=== PATIENT | female | born 1940 ===

== ENCOUNTER 2016-12-22 08:44 | Day surgery (SDC) | payer MEDICARE, MEDICAID ==
[2016-06-30 09:34] VITALS: PULSE 69
[2016-12-22 09:15] VITALS: BMI 16.5
[2016-12-22 09:23] VITALS: O2SAT 100
[2016-12-22] MEDS ORDERED: Lidocaine 1% Inj (20ml) ONE (11:20)
--- NOTE | 2016-12-22 12:08 | CP.SDSHP ---
Same Day Surgery H & P - History Proposed Procedure: Paracentesis. Pre-Op Diagnosis: ESRD and ascitis - Allergies Allergies: Allergies Penicillins Allergy (Verified 06/30/16 10:15) RASH morphine Adverse Reaction (Verified 06/30/16 12:20) HEADACHE mayonnaise Adverse Reaction (Uncoded 06/30/16 10:15) VOMITING - Physical Exam Vital Signs: Vital Signs 12/22/16 12/22/16 12/22/16 09:22 09:27 11:35 Temperature 97.5 F L 97.9 F Pulse Rate 81 81 88 Respiratory 18 18 Rate Blood Pressure 144/52 L 127/66 O2 Sat by Pulse 100 100 Oximetry Short Stay Discharge - Short Stay Discharge Admitting Diagnosis/Reason for Visit: R18.8/THERAPUTIC PARA Disposition: HOME/ ROUTINE Referrals: Jose Snyder MD [Primary Care Provider] -
--- NOTE | 2016-12-22 12:09 | PCM.SURG1 ---
Surgeon's Initial Post Op Note - Surgeon's Notes Surgeon: Julian Contestant Coordinator: None Type of Anesthesia: Local Pre-Operative Diagnosis: ESRD and ascites Operative Findings: Ascites Post-Operative Diagnosis: ESRD and ascites Operation Performed: Paracentesis Specimen/Specimens Removed: Approx 4700cc of pale yellow colored clear fluid aspirated. Estimated Blood Loss: EBL {In ML}: 1 Date of Surgery/Procedure: 12/22/16 Time of Surgery/Procedure: 11:30
[2016-12-22 12:31] VITALS: RESP 18
[2016-12-22 13:56] VITALS: BP 116/68; PULSE 58; TEMP 97.4
== END 2016-12-22 14:00 | disposition home or self-care (01) ==
LOC: H.OPSURG 08:44
PROVIDERS: ATTEND Internal Medicine
DX: R18.8 Other ascites (principal)
CPT/HCPCS: 49083; C1729

== ENCOUNTER 2017-01-17 08:35 | Day surgery (SDC) | payer MEDICARE, MEDICAID ==
[2016-06-30 09:34] VITALS: PULSE 69
[2017-01-17 09:32] VITALS: BMI 19.9
[2017-01-17] MEDS ORDERED: Lidocaine 1% Inj (20ml) ONE (11:19)
--- NOTE | 2017-01-17 12:15 | CP.SDSHP ---
Same Day Surgery H & P - History Proposed Procedure: PARACENTESIS Pre-Op Diagnosis: ascites - Allergies Allergies: Allergies Penicillins Allergy (Verified 06/30/16 10:15) RASH morphine Adverse Reaction (Verified 06/30/16 12:20) HEADACHE mayonnaise Adverse Reaction (Uncoded 06/30/16 10:15) VOMITING - Physical Exam Vital Signs: Vital Signs 01/17/17 01/17/17 01/17/17 09:16 09:17 11:34 Temperature 98 F 98 F Pulse Rate 75 75 77 Respiratory 18 18 Rate Blood Pressure 127/47 L 124/49 L O2 Sat by Pulse 100 99 Oximetry 01/17/17 12:04 Temperature 97.8 F Pulse Rate 76 Respiratory 20 Rate Blood Pressure 127/61 O2 Sat by Pulse 99 Oximetry Mental Status: Alert & Oriented x3 Neuro: WNL Heart: WNL Lungs: WNL - {Optional Preform as Required} Abdomen: Other (distended, non tender) - Impression Impression: pt with recurrent ascites. Plan US guided paracentesis. Pt. Evaluated Today:Candidate for Anesthesia & Procedure: No - Date & Time Date: 01/17/17 Time: 11:30 Short Stay Discharge - Short Stay Discharge Admitting Diagnosis/Reason for Visit: THERAPEUTIC PARA Referrals: Jose Snyder MD [Primary Care Provider] - Progress Note/Discharge Note with Instructions: S/P Paracentesis. No complications.
--- NOTE | 2017-01-17 12:17 | PCM.SURG1 ---
Surgeon's Initial Post Op Note - Surgeon's Notes Surgeon: Javier Woods MD District Adviser: NONE Type of Anesthesia: Local Pre-Operative Diagnosis: Ascites Operative Findings: US showed a large amount of ascites Post-Operative Diagnosis: Ascites Operation Performed: US guided paracentesis. Specimen/Specimens Removed: 5.5 Liters of clear fluid Estimated Blood Loss: EBL {In ML}: 0 Blood Products Given: N/A Drains Used: No Drains Post-Op Condition: Good Date of Surgery/Procedure: 01/17/17 Time of Surgery/Procedure: 12:05
[2017-01-17 12:24] VITALS: RESP 18; O2SAT 100
[2017-01-17 12:41] VITALS: PULSE 77; TEMP 97.5
[2017-01-17 13:19] VITALS: BP 118/50
--- NOTE | 2017-01-18 12:03 | US ---
Date of Procedure: 01/17/2017 PROCEDURE: Ultrasound-guided paracentesis, CPT 89636 Medications: 5 cc 1% Lidocaine HISTORY: Ascites, abdominal pain, cirrhosis TECHNIQUE: Following informed consent , the patient was placed supine on the stretcher and the site was marked. A limited abdominal ultrasound was performed that showed a large amount of intra-abdominal fluid. Procedural time out was called and the Pt's abdomen was marked and prepped and draped in the usual sterile fashion. Ultrasound-guided large volume paracentesis performed. A total of 5.5 liters of straw colored fluid was removed without complication. IMPRESSION: Ultrasound-guided large volume paracentesis.
== END 2017-01-17 13:30 | disposition home or self-care (01) ==
LOC: H.OPSURG 08:35
PROVIDERS: ATTEND Internal Medicine
DX: R18.8 Other ascites (principal)
CPT/HCPCS: 49083; C1729

== ENCOUNTER 2017-02-09 07:47 | Day surgery (SDC) | payer MEDICARE, MEDICAID ==
[2016-06-30 09:34] VITALS: PULSE 69
[2017-02-09 08:15] VITALS: RESP 20; O2SAT 100
[2017-02-09 08:47] LABS: HEMATOCRIT 34.3 % (34.0-47.0); MEAN CELL VOLUME 98.2 fl (81.0-99.0); MEAN CORPUSCULAR HEMOGLOBIN 30.6 pg (27.0-31.0); MEAN CORPUSCULAR HGB CONC 31.2 g/dL (33.0-37.0); RED CELL DISTRIBUTION WIDTH 16.9 % (11.5-14.5); WHITE BLOOD COUNT 3.1 K/uL (4.8-10.8)
[2017-02-09 08:59] LABS: PARTIAL THROMBOPLASTIN TIME 30.6 SECONDS (23.3-32.5)
[2017-02-09] MEDS ORDERED: Lidocaine 1% Inj (20ml) ONE (10:20)
--- NOTE | 2017-02-09 10:33 | CP.SDSHP ---
Same Day Surgery H & P - History Proposed Procedure: US guided paracentesis. Pre-Op Diagnosis: Refractory ascites - Allergies Allergies: Allergies Penicillins Allergy (Verified 06/30/16 10:15) RASH morphine Adverse Reaction (Verified 06/30/16 12:20) HEADACHE mayonnaise Adverse Reaction (Uncoded 06/30/16 10:15) VOMITING - Physical Exam Vital Signs: Vital Signs 02/09/17 02/09/17 08:14 08:15 Temperature 97.8 F Pulse Rate 71 71 Respiratory 20 Rate Blood Pressure 140/52 L O2 Sat by Pulse 100 Oximetry Mental Status: Alert & Oriented x3 Neuro: WNL Heart: WNL Lungs: WNL - {Optional Preform as Required} Abdomen: Other (Distended, non tender) - Impression Impression: Pt with a large amount of ascites. Plan US guided paracentesis. Pt. Evaluated Today:Candidate for Anesthesia & Procedure: No - Date & Time Date: 02/09/17 Time: 10:30 Short Stay Discharge - Short Stay Discharge Admitting Diagnosis/Reason for Visit: R18.8 Referrals: Jose Snyder MD [Primary Care Provider] - Progress Note/Discharge Note with Instructions: S/P paracentesis. There were no compications.
--- NOTE | 2017-02-09 10:34 | PCM.SURG1 ---
Surgeon's Initial Post Op Note - Surgeon's Notes Surgeon: Javier Woods MD Burn Out Tender Lace: NONE Type of Anesthesia: Local Pre-Operative Diagnosis: Ascites Operative Findings: US showed a large amount of ascites Post-Operative Diagnosis: Ascites Operation Performed: US guided paracentesis. Specimen/Specimens Removed: 5.7 l of straw colored fluid. Estimated Blood Loss: EBL {In ML}: 0 Blood Products Given: N/A Drains Used: No Drains Post-Op Condition: Good Date of Surgery/Procedure: 02/09/17 Time of Surgery/Procedure: 10:55
[2017-02-09 11:58] VITALS: BP 121/50; PULSE 76; TEMP 98.2
--- NOTE | 2017-02-09 15:28 | US ---
Date of Procedure: 02/09/2017 PROCEDURE: Ultrasound-guided paracentesis, CPT 96452 Medications: 8cc 1% Lidocaine HISTORY: Ascites, abdominal pain TECHNIQUE: Following informed consent , the patient was placed supine on the stretcher and the site was marked. A limited abdominal ultrasound was performed that showed a large amount of intra-abdominal fluid. Procedural time out was called and the Pt's abdomen was marked and prepped and draped in the usual sterile fashion. Ultrasound-guided large volume paracentesis performed. A total of 5.7 liters of straw colored fluid was removed without complication. IMPRESSION: Ultrasound-guided large volume paracentesis.
== END 2017-02-09 12:10 | disposition home or self-care (01) ==
LOC: H.OPSURG 07:47
PROVIDERS: ATTEND Internal Medicine
DX: R18.8 Other ascites (principal)

== ENCOUNTER 2017-03-07 10:36 | Day surgery (SDC) | payer MEDICARE, MEDICAID ==
[2016-06-30 09:34] VITALS: PULSE 69
[2017-03-07 10:59] VITALS: BMI 19.2
[2017-03-07] MEDS ORDERED: Lidocaine 1% Inj (20ml) ONE (11:23)
--- NOTE | 2017-03-07 12:17 | CP.SDSHP ---
Same Day Surgery H & P - History Proposed Procedure: US guided paracentesis. Pre-Op Diagnosis: Ascites - Allergies Allergies: Allergies Penicillins Allergy (Verified 06/30/16 10:15) RASH morphine Adverse Reaction (Verified 06/30/16 12:20) HEADACHE mayonnaise Adverse Reaction (Uncoded 06/30/16 10:15) VOMITING - Physical Exam Vital Signs: Vital Signs 03/07/17 03/07/17 03/07/17 11:01 11:38 12:13 Temperature 97.3 F L 97.2 F L 97.8 F Pulse Rate 87 74 79 Respiratory 20 20 20 Rate Blood Pressure 125/75 124/81 114/61 O2 Sat by Pulse 100 98 Oximetry Mental Status: Alert & Oriented x3 Neuro: WNL Heart: WNL - {Optional Preform as Required} Abdomen: Other (Distended. Non tender) - Impression Impression: Pt with refractory ascites. Plan US guided paracentesis. Pt. Evaluated Today:Candidate for Anesthesia & Procedure: No - Date & Time Date: 03/07/17 Time: 12:00 Short Stay Discharge - Short Stay Discharge Admitting Diagnosis/Reason for Visit: R18.8 Referrals: Jose Snyder MD [Primary Care Provider] -
--- NOTE | 2017-03-07 12:18 | PCM.SURG1 ---
Surgeon's Initial Post Op Note - Surgeon's Notes Surgeon: Javier Woods MD Gem Technician: NONE Type of Anesthesia: Local Pre-Operative Diagnosis: Ascites Operative Findings: US showed moderate ascites Post-Operative Diagnosis: Ascites Operation Performed: US guided paracentesis. Specimen/Specimens Removed: 4.6 liters of straw colored fluid Estimated Blood Loss: EBL {In ML}: 0 Blood Products Given: N/A Drains Used: No Drains Post-Op Condition: Fair Date of Surgery/Procedure: 03/07/17 Time of Surgery/Procedure: 12:10
[2017-03-07 12:44] VITALS: RESP 18; TEMP 97.7; O2SAT 100
[2017-03-07 13:25] VITALS: BP 110/44; PULSE 71
--- NOTE | 2017-03-08 15:10 | US ---
Date of Procedure: 03/07/2017 PROCEDURE: Ultrasound-guided paracentesis, CPT 81918 Medications:8CC 1% Lidocaine HISTORY: Ascites, abdominal pain TECHNIQUE: Following informed consent , the patient was placed supine on the stretcher and the site was marked. A limited abdominal ultrasound was performed that showed a large amount of intra-abdominal fluid. Procedural time out was called and the Pt's abdomen was marked and prepped and draped in the usual sterile fashion. Ultrasound-guided large volume paracentesis performed. A total of 4.6 liters of straw colored fluid was removed without complication. IMPRESSION: Ultrasound-guided large volume paracentesis.
== END 2017-03-07 13:40 | disposition home or self-care (01) ==
LOC: H.OPSURG 10:36
PROVIDERS: ATTEND Internal Medicine
DX: R18.8 Other ascites (principal); Z88.0 Allergy status to penicillin
CPT/HCPCS: 49083; C1729

== ENCOUNTER 2017-04-04 10:46 | Day surgery (SDC) | payer MEDICARE, MEDICAID ==
[2016-06-30 09:34] VITALS: PULSE 69
[2017-04-04 11:02] VITALS: BMI 20.4
[2017-04-04 11:46] VITALS: RESP 18
[2017-04-04 11:57] LABS: BASO % 0.9 % (0.0-2.0); EOS # 0.1 K/uL (0.0-0.7); EOS % 1.6 % (0.0-4.0); HEMATOCRIT 38.7 % (34.0-47.0); LYMPH # 0.4 K/uL (1.0-4.3); LYMPH % 10.5 % (20.0-40.0); MEAN CELL VOLUME 98.7 fl (81.0-99.0); MEAN CORPUSCULAR HEMOGLOBIN 30.9 pg (27.0-31.0); MEAN CORPUSCULAR HGB CONC 31.3 g/dL (33.0-37.0); MONO # 0.5 K/uL (0.0-0.8); MONO % 13.2 % (0.0-10.0); NEUT # 2.6 K/uL (1.8-7.0); NEUT % 73.8 % (50.0-75.0); NRBC % 0.2 % (0.0-0.0); RED CELL DISTRIBUTION WIDTH 17.4 % (11.5-14.5); WHITE BLOOD COUNT 3.5 K/uL (4.8-10.8)
[2017-04-04 12:13] LABS: PARTIAL THROMBOPLASTIN TIME 33.9 Seconds (25.6-37.1)
--- NOTE | 2017-04-04 13:33 | CP.SDSHP ---
Same Day Surgery H & P - History Proposed Procedure: US guided paracentesis. Pre-Op Diagnosis: Ascites - Allergies Allergies: Allergies Penicillins Allergy (Verified 06/30/16 10:15) RASH morphine Adverse Reaction (Verified 06/30/16 12:20) HEADACHE mayonnaise Adverse Reaction (Uncoded 06/30/16 10:15) VOMITING - Physical Exam Vital Signs: Vital Signs 04/04/17 04/04/17 04/04/17 11:45 11:53 13:13 Temperature 97.6 F 98.6 F Pulse Rate 82 76 Pulse Rate [ 82 Radial] Respiratory 18 18 18 Rate Blood Pressure 130/55 L 125/69 O2 Sat by Pulse 100 100 Oximetry Mental Status: Alert & Oriented x3 Neuro: WNL Heart: WNL Lungs: WNL () - Impression Impression: Pt with refractory ascites referred for paracentesis. Pt. Evaluated Today:Candidate for Anesthesia & Procedure: No - Date & Time Date: 04/04/17 Time: 13:25 Short Stay Discharge - Short Stay Discharge Admitting Diagnosis/Reason for Visit: R18.8 Disposition: HOME/ ROUTINE Referrals: Jose Snyder MD [Primary Care Provider] -
--- NOTE | 2017-04-04 13:35 | PCM.SURG1 ---
Surgeon's Initial Post Op Note - Surgeon's Notes Surgeon: Roseanne Couch Cosmetics Machine Operator: None Type of Anesthesia: Local Pre-Operative Diagnosis: Ascites Operative Findings: US showed large amount of ascites Post-Operative Diagnosis: Ascites Operation Performed: US guided paracentesis. Specimen/Specimens Removed: 4600 of clear fluid Estimated Blood Loss: EBL {In ML}: 0 Blood Products Given: N/A Drains Used: No Drains Post-Op Condition: Good Date of Surgery/Procedure: 04/04/17 Time of Surgery/Procedure: 13:30
[2017-04-04 14:47] VITALS: TEMP 97.7
[2017-04-04 14:49] VITALS: BP 129/47; PULSE 78; O2SAT 99
--- NOTE | 2017-04-05 11:45 | US ---
Date of Procedure: 04/04/2017 PROCEDURE: Ultrasound-guided paracentesis, CPT 09687 Medications: 8cc 1% Lidocaine HISTORY: Ascites, abdominal pain, cirrhosis TECHNIQUE: Following informed consent , the patient was placed supine on the stretcher and the site was marked. A limited abdominal ultrasound was performed that showed a large amount of intra-abdominal fluid. Procedural time out was called and the Pt's abdomen was marked and prepped and draped in the usual sterile fashion. Ultrasound-guided large volume paracentesis performed. A total of 5 liters of straw colored fluid was removed without complication. IMPRESSION: Ultrasound-guided large volume paracentesis.
== END 2017-04-04 16:00 | disposition home or self-care (01) ==
LOC: H.OPSURG 10:46
PROVIDERS: ATTEND Internal Medicine
DX: R18.8 Other ascites (principal)
CPT/HCPCS: 36415; 49083; 85025; 85610; 85730; C1729

== ENCOUNTER 2017-04-27 11:06 | Day surgery (SDC) | payer MEDICARE, MEDICAID ==
[2016-06-30 09:34] VITALS: PULSE 69
[2017-04-27 11:32] VITALS: BMI 20.1
[2017-04-27 11:37] VITALS: O2SAT 97
[2017-04-27] MEDS ORDERED: Lidocaine 1% Inj (20ml) ONE (14:12)
--- NOTE | 2017-04-27 14:50 | PCM.SURG1 ---
Surgeon's Initial Post Op Note - Surgeon's Notes Surgeon: Javier Woods MD Cage Unloader: None Type of Anesthesia: Local Pre-Operative Diagnosis: Ascites, cirrhosis Operative Findings: US showed a large amount of ascites Post-Operative Diagnosis: Ascites, cirrhosis Operation Performed: US guided paracentesis. Specimen/Specimens Removed: 5700 cc of clear fluid Estimated Blood Loss: EBL {In ML}: 0 Blood Products Given: N/A Drains Used: No Drains Post-Op Condition: Good Date of Surgery/Procedure: 04/27/17 Time of Surgery/Procedure: 14:40
--- NOTE | 2017-04-27 14:52 | CP.SDSHP ---
Same Day Surgery H & P - History Proposed Procedure: Paracentesis Pre-Op Diagnosis: Ascites - Allergies Allergies: Allergies Penicillins Allergy (Verified 04/27/17 11:37) RASH morphine Adverse Reaction (Verified 04/27/17 11:37) HEADACHE mayonnaise Adverse Reaction (Uncoded 04/27/17 11:37) VOMITING - Physical Exam Vital Signs: Vital Signs 04/27/17 04/27/17 11:36 14:15 Temperature 98 F 98 F Pulse Rate 73 81 Respiratory 20 18 Rate Blood Pressure 124/46 L 144/69 O2 Sat by Pulse 97 Oximetry - Impression Impression: Pt with ascites referred for paracentesis. Pt. Evaluated Today:Candidate for Anesthesia & Procedure: No - Date & Time Date: 04/27/17 Time: 14:00 Short Stay Discharge - Short Stay Discharge Admitting Diagnosis/Reason for Visit: ASCITES Referrals: Jose Snyder MD [Primary Care Provider] - Progress Note/Discharge Note with Instructions: S/P paracentesis.
[2017-04-27 15:15] VITALS: BP 135/49; RESP 20; TEMP 97.8
[2017-04-27 15:40] VITALS: PULSE 74
--- NOTE | 2017-04-28 11:39 | US ---
Date of Procedure: 04/27/2017 PROCEDURE: Ultrasound-guided paracentesis, CPT 69721 Medications: 7 cc 1% Lidocaine HISTORY: Ascites, abdominal pain, cirrhosis TECHNIQUE: Following informed consent , the patient was placed supine on the stretcher and the site was marked. A limited abdominal ultrasound was performed that showed a large amount of intra-abdominal fluid. Procedural time out was called and the Pt's abdomen was marked and prepped and draped in the usual sterile fashion. Ultrasound-guided large volume paracentesis performed. A total of 5.7iters of straw colored fluid was removed without complication. IMPRESSION: Ultrasound-guided large volume paracentesis.
== END 2017-04-27 12:00 | disposition home or self-care (01) ==
LOC: H.OPSURG 11:06
PROVIDERS: ATTEND Internal Medicine
DX: R18.8 Other ascites (principal); K74.60 Unspecified cirrhosis of liver; Z88.0 Allergy status to penicillin
CPT/HCPCS: 49083; C1729

== ENCOUNTER 2017-05-16 11:43 | Day surgery (SDC) | payer MEDICARE, MEDICAID ==
[2016-06-30 09:34] VITALS: PULSE 69
[2017-05-16 12:15] VITALS: BMI 19.2
[2017-05-16] MEDS ORDERED: Lidocaine 1% Inj (20ml) ONE (12:28)
[2017-05-16 12:50] VITALS: RESP 18
--- NOTE | 2017-05-16 13:11 | CP.SDSHP ---
Same Day Surgery H & P - History Proposed Procedure: US guided paracentesis. Pre-Op Diagnosis: Ascites - Allergies Allergies: Allergies Penicillins Allergy (Verified 04/27/17 11:37) RASH morphine Adverse Reaction (Verified 04/27/17 11:37) HEADACHE mayonnaise Adverse Reaction (Uncoded 04/27/17 11:37) VOMITING - Physical Exam Vital Signs: Vital Signs 05/16/17 05/16/17 05/16/17 12:02 12:18 12:49 Temperature 97.7 F 98.3 F Pulse Rate 70 70 Pulse Rate [ 70 Radial] Respiratory 20 18 Rate Blood Pressure 126/46 L 120/59 L O2 Sat by Pulse 100 97 Oximetry Mental Status: Alert & Oriented x3 Neuro: WNL Heart: WNL Lungs: WNL - {Optional Preform as Required} Abdomen: Other (distended, non tender) - Impression Impression: Pt with refractory ascites referred for paracentesis. Plan US guided paracentesis. Pt. Evaluated Today:Candidate for Anesthesia & Procedure: No Short Stay Discharge - Short Stay Discharge Admitting Diagnosis/Reason for Visit: THERAPEUTIC PARACENTESIS Referrals: Jose Snyder MD [Primary Care Provider] -
[2017-05-16 14:01] VITALS: PULSE 70; O2SAT 100
--- NOTE | 2017-05-16 14:03 | PCM.SURG1 ---
Surgeon's Initial Post Op Note - Surgeon's Notes Surgeon: Javier Woods MD Monument Mason: None Type of Anesthesia: Local Pre-Operative Diagnosis: Ascites Operative Findings: US showed a large amount of ascites Post-Operative Diagnosis: Ascites Operation Performed: US guided paracentesis. Specimen/Specimens Removed: 5 liters of straw colored fluid Estimated Blood Loss: EBL {In ML}: 0 Blood Products Given: N/A Drains Used: No Drains Post-Op Condition: Good Date of Surgery/Procedure: 05/16/17 Time of Surgery/Procedure: 13:45
[2017-05-16 14:26] VITALS: BP 122/49; TEMP 97.8
== END 2017-05-16 15:10 | disposition home or self-care (01) ==
LOC: H.OPSURG 11:43
PROVIDERS: ATTEND Internal Medicine
DX: R18.8 Other ascites (principal)

== ENCOUNTER 2017-06-01 09:52 | Day surgery (SDC) | payer MEDICARE, MEDICAID ==
[2016-06-30 09:34] VITALS: PULSE 69
[2017-06-01 10:24] VITALS: BMI 20.1
[2017-06-01] MEDS ORDERED: Lidocaine 1% Inj (20ml) ONE (11:15)
--- NOTE | 2017-06-01 11:38 | CP.SDSHP ---
Same Day Surgery H & P - History Proposed Procedure: Paracentesis Pre-Op Diagnosis: ESRD/Ascites - Allergies Allergies: Allergies Penicillins Allergy (Verified 04/27/17 11:37) RASH morphine Adverse Reaction (Verified 04/27/17 11:37) HEADACHE mayonnaise Adverse Reaction (Uncoded 04/27/17 11:37) VOMITING - Physical Exam Vital Signs: Vital Signs 06/01/17 06/01/17 06/01/17 10:18 10:20 11:28 Temperature 97.8 F 98 F Pulse Rate 70 72 Respiratory 20 20 18 Rate Blood Pressure 124/45 L 136/58 L O2 Sat by Pulse 100 98 Oximetry Mental Status: Alert & Oriented x3 Neuro: WNL Heart: WNL Lungs: WNL GI: WNL - Impression Pt. Evaluated Today:Candidate for Anesthesia & Procedure: Yes Short Stay Discharge - Short Stay Discharge Admitting Diagnosis/Reason for Visit: ASCITES Disposition: HOME/ ROUTINE Referrals: Jose Snyder MD [Primary Care Provider] -
--- NOTE | 2017-06-01 12:01 | PCM.SURG1 ---
Surgeon's Initial Post Op Note - Surgeon's Notes Surgeon: Julian Recreational Leader: None Type of Anesthesia: Local Pre-Operative Diagnosis: ESRD/Ascites. Operative Findings: Ascites. Post-Operative Diagnosis: ESRD/Ascites. Operation Performed: Paracentesis. Specimen/Specimens Removed: Approx 5000cc of clear plae yellow fluid aspirated. Estimated Blood Loss: EBL {In ML}: 1 Date of Surgery/Procedure: 06/01/17 Time of Surgery/Procedure: 11:30
[2017-06-01 13:22] VITALS: BP 121/38; PULSE 69; RESP 20; TEMP 98.4; O2SAT 100
--- NOTE | 2017-06-01 14:33 | US ---
Ultrasound guided paracentesis. Clinical History: Ascites with abdominal pain and distension. Technique: The relative risks and indications for the procedure were explained to the patient and informed written consent obtained. Sonography of the abdomen was performed in a supine position. This revealed a moderate amount of non-loculated ascites, greatest in the right lower quadrant. A puncture site was selected and the area was prepped and draped in the usual sterile fashion. 1% lidocaine was used to anesthetize the skin and soft tissues. A 5 Slovenian paracentesis catheter was trocared into the right lower quadrant under real time ultrasound guidance. A permanent image was stored. Approximately 5000cc of kayleigh fluid aspirated. Impression: Ultrasound-guided paracentesis in the right lower quadrant. Approximately 5000 cc of kayleigh colored fluid was aspirated.
== END 2017-06-01 15:00 | disposition home or self-care (01) ==
LOC: H.OPSURG 09:52
PROVIDERS: ATTEND Internal Medicine
DX: R18.8 Other ascites (principal); N18.6 End stage renal disease; Z88.0 Allergy status to penicillin
CPT/HCPCS: 49083; C1729

== ENCOUNTER 2017-07-04 11:38 | Day surgery (SDC) | payer MEDICARE, MEDICAID ==
[2016-06-30 09:34] VITALS: PULSE 69
[2017-07-04 12:02] VITALS: O2SAT 100
[2017-07-04] MEDS ORDERED: Lidocaine 1% Inj (20ml) ONE (12:45)
[2017-07-04 13:53] VITALS: RESP 20
[2017-07-04 14:17] VITALS: BP 120/49; PULSE 70; TEMP 97.8
--- NOTE | 2017-07-04 14:25 | CP.SDSHP ---
Same Day Surgery H & P - History Proposed Procedure: US guided paracentesis. Pre-Op Diagnosis: Ascites - Allergies Allergies: Allergies Penicillins Allergy (Verified 04/27/17 11:37) RASH morphine Adverse Reaction (Verified 04/27/17 11:37) HEADACHE mayonnaise Adverse Reaction (Uncoded 04/27/17 11:37) VOMITING - Physical Exam Vital Signs: Vital Signs 07/04/17 07/04/17 07/04/17 12:00 12:03 12:15 Temperature 97.8 F 96.8 F L Pulse Rate 74 74 73 Respiratory 20 16 Rate Blood Pressure 108/56 L 122/52 L O2 Sat by Pulse 100 100 Oximetry 07/04/17 07/04/17 07/04/17 13:30 13:40 14:16 Temperature 97.4 F L 97.8 F Pulse Rate 71 100 H 70 Respiratory 16 20 20 Rate Blood Pressure 121/65 126/75 120/49 L O2 Sat by Pulse 100 100 100 Oximetry Mental Status: Alert & Oriented x3 Neuro: WNL Heart: WNL Lungs: WNL - Impression Impression: PT with refractory ascites. Plan US guided paracentesis. Pt. Evaluated Today:Candidate for Anesthesia & Procedure: No - Date & Time Date: 07/04/17 Time: 14:20 Short Stay Discharge - Short Stay Discharge Admitting Diagnosis/Reason for Visit: ASCITES Referrals: Jose Snyder MD [Primary Care Provider] -
--- NOTE | 2017-07-04 14:26 | PCM.SURG1 ---
Surgeon's Initial Post Op Note - Surgeon's Notes Surgeon: Javier Woods MD Oil Well Drilling Manager: NONE Type of Anesthesia: Local Pre-Operative Diagnosis: Ascites Operative Findings: US showed a large amount of ascites Post-Operative Diagnosis: Ascites Operation Performed: US guided paracentesis Specimen/Specimens Removed: 4.6 liters Estimated Blood Loss: EBL {In ML}: 0 Blood Products Given: N/A Drains Used: No Drains Post-Op Condition: Fair Date of Surgery/Procedure: 07/04/17 Time of Surgery/Procedure: 14:20
--- NOTE | 2017-07-04 16:36 | US ---
Date of Procedure: PROCEDURE: Ultrasound-guided paracentesis, CPT 94835 Medications: 7 cc 1% Lidocaine HISTORY: Ascites, abdominal pain, cirrhosis TECHNIQUE: Following informed consent , the patient was placed supine on the stretcher and the site was marked. A limited abdominal ultrasound was performed that showed a large amount of intra-abdominal fluid. Procedural time out was called and the Pt's abdomen was marked and prepped and draped in the usual sterile fashion. Ultrasound-guided large volume paracentesis performed. A total of 4.6 liters of straw colored fluid was removed without complication. IMPRESSION: Ultrasound-guided large volume paracentesis.
== END 2017-07-04 15:35 | disposition home or self-care (01) ==
LOC: H.OPSURG 11:38
PROVIDERS: ATTEND Internal Medicine
DX: R18.8 Other ascites (principal)
CPT/HCPCS: 49083; C1729

== ENCOUNTER 2017-07-25 13:02 | Day surgery (SDC) | payer MEDICARE, MEDICAID ==
[2016-06-30 09:34] VITALS: PULSE 69
[2017-07-25 13:32] VITALS: BMI 18.3
[2017-07-25] MEDS ORDERED: Lidocaine 1% Inj (20ml) ONE ×2 (14:43→15:26)
--- NOTE | 2017-07-25 15:48 | CP.SDSHP ---
Same Day Surgery H & P - History Proposed Procedure: US guided paracentesis. Pre-Op Diagnosis: Ascites - Allergies Allergies: Allergies Penicillins Allergy (Verified 04/27/17 11:37) RASH morphine Adverse Reaction (Verified 04/27/17 11:37) HEADACHE mayonnaise Adverse Reaction (Uncoded 04/27/17 11:37) VOMITING - Physical Exam Vital Signs: Vital Signs 07/25/17 13:35 Temperature 97.6 F Pulse Rate 72 Pulse Rate [ 72 Radial] Respiratory 20 Rate Blood Pressure 122/45 L O2 Sat by Pulse 100 Oximetry Mental Status: Alert & Oriented x3 Neuro: WNL Heart: WNL - Impression Impression: Pt with refractory ascites referred for paracentesis. Plan US guided paracentesis. Pt. Evaluated Today:Candidate for Anesthesia & Procedure: No - Date & Time Date: 07/25/17 Time: 15:40 Short Stay Discharge - Short Stay Discharge Admitting Diagnosis/Reason for Visit: ASCITES Referrals: Jose Snyder MD [Primary Care Provider] -
[2017-07-25 15:53] VITALS: RESP 18; O2SAT 97
--- NOTE | 2017-07-25 15:54 | PCM.SURG1 ---
Surgeon's Initial Post Op Note - Surgeon's Notes Surgeon: Javier Woods MD Aircraft Lay Out Worker: NONE Type of Anesthesia: Local Pre-Operative Diagnosis: Ascites Operative Findings: US showed a moderate amount of ascites Post-Operative Diagnosis: Ascites Operation Performed: US guided paracentesis. Specimen/Specimens Removed: 5 liters of straw colored fluid Estimated Blood Loss: EBL {In ML}: 0 Blood Products Given: N/A Drains Used: No Drains Post-Op Condition: Good Date of Surgery/Procedure: 07/25/17 Time of Surgery/Procedure: 16:30
[2017-07-25 16:22] VITALS: BP 131/57; PULSE 68; TEMP 97.2
--- NOTE | 2017-07-26 13:44 | US ---
Date of Procedure: 07/25/2017 PROCEDURE: Ultrasound-guided paracentesis, CPT 23206 Medications: 7 cc 1% Lidocaine HISTORY: Ascites, abdominal pain TECHNIQUE: Following informed consent , the patient was placed supine on the stretcher and the site was marked. A limited abdominal ultrasound was performed that showed a large amount of intra-abdominal fluid. Procedural time out was called and the Pt's abdomen was marked and prepped and draped in the usual sterile fashion. Ultrasound-guided large volume paracentesis performed. A total of 5 liters of straw colored fluid was removed without complication. IMPRESSION: Ultrasound-guided large volume paracentesis.
== END 2017-07-25 17:50 | disposition home or self-care (01) ==
LOC: H.OPSURG 13:02
PROVIDERS: ATTEND Internal Medicine
DX: R18.8 Other ascites (principal); Z88.5 Allergy status to narcotic agent; Z88.0 Allergy status to penicillin; Z91.018 Allergy to other foods
CPT/HCPCS: 49083; C1729

== ENCOUNTER → 2017-09-07 | Day surgery (SDC) | payer MEDICARE, MEDICAID ==
[2016-06-30 09:34] VITALS: PULSE 69
[~2017-09-07] MED LIST: Lidocaine 1% Inj (20ml) ONE
[2017-09-07 11:42] VITALS: BMI 19.5
--- NOTE | 2017-09-07 13:35 | CP.SDSHP ---
Same Day Surgery H & P - History Proposed Procedure: US guided paracentesis Pre-Op Diagnosis: Ascites - Allergies Allergies: Allergies Penicillins Allergy (Verified 09/07/17 11:42) RASH morphine Adverse Reaction (Verified 09/07/17 11:42) HEADACHE mayonnaise Adverse Reaction (Uncoded 09/07/17 11:42) VOMITING - Physical Exam Vital Signs: Vital Signs 09/07/17 09/07/17 11:30 12:45 Temperature 98.4 F 97.4 F L Pulse Rate 63 76 Respiratory 18 18 Rate Blood Pressure 132/82 132/68 O2 Sat by Pulse 100 100 Oximetry Mental Status: Alert & Oriented x3 Neuro: WNL Heart: WNL Lungs: WNL - Impression Impression: Pt with refractory ascites referred for paracentesis. Plan US guided paracentesis. Pt. Evaluated Today:Candidate for Anesthesia & Procedure: No - Date & Time Date: 09/07/17 Time: 13:00 Short Stay Discharge - Short Stay Discharge Admitting Diagnosis/Reason for Visit: ASCITES Referrals: Jose Snyder MD [Primary Care Provider] -
--- NOTE | 2017-09-07 13:41 | PCM.SURG1 ---
Surgeon's Initial Post Op Note - Surgeon's Notes Surgeon: Javier Woods MD Machine Set Up Operator Paper Goods: NONE Type of Anesthesia: Local Pre-Operative Diagnosis: Ascites Operative Findings: US showed a large amount of ascites Post-Operative Diagnosis: Ascites Operation Performed: US guided paracentesis. Specimen/Specimens Removed: 5 liters of straw colored fluid Estimated Blood Loss: EBL {In ML}: 0 Blood Products Given: N/A Drains Used: No Drains Post-Op Condition: Fair Date of Surgery/Procedure: 09/07/17 Time of Surgery/Procedure: 13:30
[2017-09-07 13:58] VITALS: RESP 20; TEMP 97.5
[2017-09-07 14:23] VITALS: BP 137/52; PULSE 100; O2SAT 98
== END | disposition home or self-care (01) ==
LOC: H.OPSURG 11:14
PROVIDERS: ATTEND Internal Medicine
DX: R18.8 Other ascites (principal)
CPT/HCPCS: 49083; C1729

== ENCOUNTER 2017-09-11 11:50 | Inpatient (IN) | payer MEDICARE, MEDICAID ==
[2017-09-11 11:50] VITALS: BMI 19.5
--- NOTE | 2017-09-11 12:41 | ED PDOC ---
HPI: Abdomen Time Seen by Provider: 09/11/17 12:15 Chief Complaint (Nursing): Abdominal Pain Chief Complaint (Provider): Abdominal pain Additional Complaint(s): 75 year old female, whose PMHx includes chronic kidney disease, chronic cholecystitis, liver cysts, HTN, hemodialysis, chronic ascites, who presents to the ED c/o abdominal pain and elevated heart rate that developed 1 hour into her dialysis session. Pt last has dialysis on 09/06. Pt underwent therapeutic paracentesis on 09/07 and she reports she has been leaking from the site ever since. Pt currently on Vanco PO for C.Diff and admits to 7-10 loose, watery stools daily. PMD: [facility]: [facility] Past Medical History Reviewed: Historical Data, Nursing Documentation, Vital Signs Vital Signs: Last Vital Signs Temp 99.0 F 09/11/17 12:14 Pulse 69 09/11/17 12:14 Resp 16 09/11/17 12:14 BP 101/56 L 09/11/17 12:14 Pulse Ox 99 09/11/17 12:41 - Medical History PMH: Anemia, Anxiety, Arthritis, Atrial Fibrillation, Diverticulitis, HTN, Peripheral Edema, Pneumonia, End Stage Renal Disease, Chronic Kidney Disease Denies: Fractures, HIV, Kidney Stones - Surgical History Surgical History: Endoscopy, Pacemaker (left femoral) - Family History Family History: States: Unknown Family Hx - Social History Current smoker - smoking cessation education provided: No Alcohol: None Drugs: Denies - Home Medications Home Medications: Ambulatory Orders Medication Instructions Recorded Midodrine [Proamatine] 10 mg PO MWF 11/18/14 Sevelamer Carbonate [Renvela] 800 mg PO TID 11/18/14 Timolol 0.5% Ophth [Timoptic 0.5% 1 drop EACHEYE DAILY 03/26/15 Ophth Soln] Clorazepate Dipotassium 3.75 mg PO HS 01/12/16 [Tranxene-T] Digoxin [Lanoxin] 0.25 mg PO MWF 01/12/16 Prednisone 2.5 mg PO MOFR 01/12/16 Metoprolol Tartrate [Lopressor] 25 mg PO DAILY 06/30/16 Apixaban [Eliquis] 2.5 mg PO Q12H 10/27/16 B Complex W-C No.20/Folic Acid 1 cap PO DAILY 09/11/17 [Virt-Caps Softgel] Cinacalcet [Sensipar] 30 mg PO DAILY 09/11/17 Esomeprazole Magnesium [Nexium] 40 mg PO DAILY 09/11/17 Vancomycin HCl [Vancocin HCl] 250 mg PO QID 09/11/17 - Allergies Allergies/Adverse Reactions: Allergies Allergy/AdvReac Type Severity Reaction Status Date / Time Penicillins Allergy RASH Verified 09/07/17 11:42 morphine AdvReac HEADACHE Verified 09/07/17 11:42 mayonnaise AdvReac VOMITING Uncoded 09/07/17 11:42 Review of Systems ROS Statement: Except As Marked, All Systems Reviewed And Found Negative Gastrointestinal: Positive for: Abdominal Pain Physical Exam - Reviewed Nursing Documentation Reviewed: Yes Vital Signs Reviewed: Yes - Physical Exam Appears: Positive for: Well, Non-toxic, No Acute Distress Head Exam: Positive for: ATRAUMATIC, NORMAL INSPECTION, NORMOCEPHALIC Skin: Positive for: Normal Color, Warm, DRY Eye Exam: Positive for: EOMI, Normal appearance, PERRL ENT: Positive for: Normal ENT Inspection Neck: Positive for: Normal, Painless ROM Cardiovascular/Chest: Positive for: Regular Rate, Rhythm Respiratory: Positive for: CNT, Normal Breath Sounds Gastrointestinal/Abdominal: Positive for: Bowel Sounds, Soft, Tenderness ( diffuse), Other (no drianage noted from paracentesis site at this time). Negative for: Distended, Guarding Back: Positive for: Normal Inspection Extremity: Positive for: Normal ROM Neurologic/Psych: Positive for: Alert, Oriented - Laboratory Results Result Diagrams: 09/11/17 13:10 09/11/17 15:14 - ECG O2 Sat by Pulse Oximetry: 99 Medical Decision Making Medical Decision Making: Pt placed on monitoring analyst, vitals remain stable EKG interpreted and cleared by ED MD IV access established and diagnostics ordered. Pt medicated with Acetaminophen PO Labs resulted and reviewed with Pt and daughter at bedside. Demonstrated full understanding Case discussed with pt's varnish blender, Dr. Gutiérrez, who advised Kayexalate to be given STAT and dialysis to be scheduled for tomorrow (12) am. Pt's PMD, Dr. Snyder. Hospitalist contacted and case discussed. Arrangements made for admission to tele CT scan ordered, initially with Po contrast; however, Pt declined all contrast. Pt undergoing CT without PO or IV Disposition - Clinical Impression Clinical Impression: Abdominal discomfort, ESRD (end stage renal disease) on dialysis, Hyperkalemia - Patient ED Disposition Is Patient to be Admitted: Yes - Disposition Disposition Time: 18:20 Condition: STABLE - POA Present On Arrival: None
[2017-09-11 13:18] LABS: BASO % 0.1 % (0.0-2.0); EOS % 0.1 % (0.0-4.0); HEMATOCRIT 35.6 % (34.0-47.0); LYMPH # 0.2 K/uL (1.0-4.3); LYMPH % 4.6 % (20.0-40.0); MEAN CELL VOLUME 97.4 fl (81.0-99.0); MEAN CORPUSCULAR HEMOGLOBIN 31.9 pg (27.0-31.0); MEAN CORPUSCULAR HGB CONC 32.7 g/dL (33.0-37.0); MEAN PLATELET VOLUME 10.1 fl (7.2-11.7); MONO # 0.5 K/uL (0.0-0.8); NEUT # 4.4 K/uL (1.8-7.0); NEUT % 86.2 % (50.0-75.0); PLATELET COUNT 102 K/uL (130-400); RED CELL DISTRIBUTION WIDTH 14.4 % (11.5-14.5); WHITE BLOOD COUNT 5.1 K/uL (4.8-10.8)
[2017-09-11 13:34] LABS: PARTIAL THROMBOPLASTIN TIME 37.8 Seconds (25.6-37.1)
--- NOTE | 2017-09-11 15:05 | RAD ---
PROCEDURE: CHEST RADIOGRAPH, 1 VIEW HISTORY: med screening COMPARISON: 06/30/2016 FINDINGS: LUNGS: Chronic changes right lower lobe. These are accentuated by portable technique and suboptimal inspiratory effort. PLEURA: No pneumothorax or pleural fluid seen. CARDIOVASCULAR: No radiographic findings to suggest acute or significant cardiovascular disease. OSSEOUS STRUCTURES: No significant abnormalities. VISUALIZED UPPER ABDOMEN: Normal. OTHER FINDINGS: None. IMPRESSION: No active disease. No acute/significant interval changes.
[2017-09-11 15:37] LABS: BASOPHIL 1 % (0-2); NEUTROPHIL 88 % (42-75); TOTAL CELLS COUNTED 100
[2017-09-11 15:39] LABS: ALB/GLOB RATIO 0.9 (1.0-2.1); BILIRUBIN,TOTAL 0.9 mg/dl (0.2-1.3); CALCIUM 6.8 mg/dL (8.4-10.2); POTASSIUM 5.9 MMOL/L (3.6-5.0); TOTAL PROTEIN 5.5 G/DL (6.3-8.2)
[2017-09-11 15:40] LABS: LARGE PLATELETS PRESENT
[2017-09-11 16:07] LABS: TROPONIN I 0.049 ng/mL (0.00-0.120)
[2017-09-11] MEDS ORDERED: Sod Polystyrene Sulf 15 gm/60 ml Susp PO STA (16:29)
[2017-09-11] MEDS ORDERED: Sod Polystyrene Sulf 15 gm/60 ml Susp ONE (16:55)
[2017-09-11] MEDS ORDERED: Iohexol 240 (50 ml) PO ONE (17:24)
[2017-09-11] MEDS ORDERED: HYDROmorphone 0.5 mg/0.5 ml ISec IVP PRN (17:36)
[2017-09-11] MEDS ORDERED: HYDROmorphone 1 mg/ml ISec IVP PRN (17:37)
--- NOTE | 2017-09-11 18:01 | CP.PCM.HP ---
History of Present Illness - History of Present Illness History of Present Illness: CC: This is a 77 year old female with a past medical history of ESRD on dialysis M-W -F, chronic cholecystitis, liver cysts with chronic ascites for which she has a paracentesis twice monthly, hypertension, chronic edema, history of C. diff on oral vancomycin, who presents to the ED with the complaint of abdominal pain s/ p paracentesis. The patient was able to finish paracentesis and 5 liters were taken out. At the time of the procedure she had minimal discomfort; however it went away and she went home. However; at home the pain started again. It is located in the right lower quadrant and became progressively worse. It is sharp , moderate to severe in nature. In the ED, the patients' vitals were unremarkable. Laboratory values are remarkable for a potassium of 5.9, and chloride of 97. Given the patient's abdominal pain and hyperkalemia, she is to be admitted to telemetry for further workup. She is to have an abdominal CT scan without po contrast as patient is refusing, and it is against policy to give IV contrast for an ESRD patient unless it is on the same day as dialysis. Of note the patient admits to loose stools daily due to chronic C. diff. Patient denies chest pain, shortness of breath, fevers, chills, headache. Rest of ROS as below. All of the patient's and/or family's questions were answered at the bedside. Present on Admission - Present on Admission Any Indicators Present on Admission: No Review of Systems - Hematologic/Lymphatic Additional comments: GENERAL/CONSTITUTIONAL: The patient denies fever, fatigue, weakness, weight gain or weight loss. HEAD, EYES, EARS, NOSE AND THROAT: Eyes - The patient denies pain, redness, loss of vision, double or blurred vision, flashing lights or spots, dryness, Ears, nose, mouth and throat. The patient denies ringing in the ears, loss of hearing, nosebleeds, loss of sense of smell, dry sinuses, sinusitis, post nasal drip, CARDIOVASCULAR: The patient denies chest pain, chest pressure, or irregular heartbeats, RESPIRATORY: The patient denies chronic dry cough, coughing up blood, coughing up mucus, wheezing, or shortness of breath. GASTROINTESTINAL: The patient admits to RLQ abdominal pain and loose stools. She denies decreased appetite, nausea, vomiting, vomiting blood or coffee ground material, heartburn, regurgitation, diarrhea, constipation, gas, blood in the stools, black tarry stools. GENITOURINARY: The patient denies difficult urination, pain or burning with urination, blood in the urine, frequency, or urgency MUSCULOSKELETAL: The patient denies arm, buttock, thigh or calf cramps. No joint or muscle pain. No muscle weakness or tenderness. No joint swelling, neck pain, back pain. SKIN: The patient denies easy bruising, skin redness, skin rash, hives, sensitivity to sun exposure, tightness, nodules or bumps, hair loss, color changes in the hands or feet with cold. NEUROLOGIC: The patient denies headache, dizziness, fainting, muscle spasm, loss of consciousness, sensitivity or pain in the hands and feet or memory loss. PSYCHIATRIC: The patient denies anxiety, depression, or thoughts of suicide. ENDOCRINE: The patient denies intolerance to hot or cold temperature, flushing, fingernail changes, increased thirst, or increased salt intake HEMATOLOGIC/LYMPHATIC: The patient denies anemia, bleeding tendency or clotting tendency. ALLERGIC/IMMUNOLOGIC: The patient denies rhinitis, asthma, skin sensitivity, latex allergies or sensitivity. Past Patient History - Infectious Disease Hx of Infectious Diseases: None - Tetanus Immunizations Tetanus Immunization: Unknown - Past Medical History & Family History Past Medical History?: Yes - Past Social History Smoking Status: Never Smoked Alcohol: None - CARDIAC Hx Atrial Fibrillation: Yes Hx Hypertension: Yes Hx Pacemaker: Yes (left femoral) Hx Peripheral Edema: Yes - PULMONARY Hx Pneumonia: Yes - NEUROLOGICAL Hx Neurological Disorder: No - HEENT Hx Glaucoma: Yes - RENAL Hx Chronic Kidney Disease: Yes Hx Kidney Stones: No - ENDOCRINE/METABOLIC Hx Endocrine Disorders: No - HEMATOLOGICAL/ONCOLOGICAL Hx Anemia: Yes Hx Human Immunodeficiency Virus (HIV): No - INTEGUMENTARY Hx Dermatological Problems: No - MUSCULOSKELETAL/RHEUMATOLOGICAL Hx Arthritis: Yes Hx Fractures: No - GASTROINTESTINAL Hx Diverticulitis: Yes - GENITOURINARY/GYNECOLOGICAL Hx Genitourinary Disorders: No - PSYCHIATRIC Hx Anxiety: Yes Hx Substance Use: No - SURGICAL HISTORY Hx Surgeries: Yes Other/Comment: PARACENTESIS SERIES - ANESTHESIA Hx Anesthesia: Yes Hx Anesthesia Reactions: Yes (HARD TO WAKE UP) Hx Malignant Hyperthermia: No Meds Allergies/Adverse Reactions: Allergies Allergy/AdvReac Type Severity Reaction Status Date / Time Penicillins Allergy RASH Verified 09/07/17 11:42 morphine AdvReac HEADACHE Verified 09/07/17 11:42 mayonnaise AdvReac VOMITING Uncoded 09/07/17 11:42 Physical Exam - Additional Findings Additional findings: Physical exam: Constitutional- cooperative, awake, alert. Head- NCAT, PERRL Eye- PERRL, normal accommodation ENT- normal exam, MMM. Neck- normal inspection, supple, no JVD Respiratory- CTAB, no wheezes rales rhonchi Cardiovascular- RRR, +S1, +S2 no MRG GI/Abdominal- Tenderness to palpation of the RLQ. Normal bowel sounds, soft, no mass, no hsm Skin- warm, dry Extremities Exam- normal capillary refill, normal inspection Neurological Exam- alert, stable gait Psych- normal mood, normal affect Results - Vital Signs Recent Vital Signs: Last Vital Signs Temp 99.0 F 09/11/17 12:14 Pulse 69 09/11/17 12:14 Resp 16 09/11/17 12:14 BP 101/56 L 09/11/17 12:14 Pulse Ox 99 09/11/17 12:41 - Labs Result Diagrams: 09/11/17 13:10 09/11/17 15:14 Labs: Laboratory Results - last 24 hr 09/11/17 09/11/17 09/11/17 13:05 13:10 13:10 WBC 5.1 RBC 3.65 L Hgb 11.6 L Hct 35.6 MCV 97.4 MCH 31.9 H MCHC 32.7 L RDW 14.4 Plt Count 102 L MPV 10.1 Neut % (Auto) 86.2 H Lymph % (Auto) 4.6 L [place] % (Auto) 9.0 Eos % (Auto) 0.1 Baso % (Auto) 0.1 Neut # 4.4 Lymph # 0.2 L [place] # 0.5 Eos # 0.0 Baso # 0.0 Neutrophils % (Manual) 88 H Lymphocytes % (Manual) 3 L Monocytes % (Manual) 8 Basophils % (Manual) 1 Toxic Granulation Present Platelet Estimate Decreased L Large Platelets Present Hypochromasia (manual) Slight PT INR APTT Sodium Potassium Chloride Carbon Dioxide Anion Gap BUN Creatinine Est GFR ( Amer) Est GFR (Non-Af Amer) Random Glucose Calcium Total Bilirubin AST ALT Alkaline Phosphatase Ammonia < 9 L Troponin I Total Protein Albumin Globulin Albumin/Globulin Ratio Amylase Lipase Blood Type Cancelled Antibody Screen Cancelled BBK History Checked Cancelled 09/11/17 09/11/17 09/11/17 13:10 15:14 15:14 WBC RBC Hgb Hct MCV MCH MCHC RDW Plt Count MPV Neut % (Auto) Lymph % (Auto) [place] % (Auto) Eos % (Auto) Baso % (Auto) Neut # Lymph # [place] # Eos # Baso # Neutrophils % (Manual) Lymphocytes % (Manual) Monocytes % (Manual) Basophils % (Manual) Toxic Granulation Platelet Estimate Large Platelets Hypochromasia (manual) PT 15.9 H INR 1.4 H APTT 37.8 H Sodium 134 Potassium 5.9 H Chloride 97 L Carbon Dioxide 26 Anion Gap 17 BUN 120 H* D Creatinine 7.2 H Est GFR ( Amer) 7 Est GFR (Non-Af Amer) 6 Random Glucose 76 Calcium 6.8 L Total Bilirubin 0.9 AST 29 ALT 36 Alkaline Phosphatase 101 Ammonia Troponin I 0.0490 Total Protein 5.5 L Albumin 2.6 L Globulin 2.9 Albumin/Globulin Ratio 0.9 L Amylase 113 H Lipase 64 Blood Type Cancelled Antibody Screen Cancelled BBK History Checked Cancelled Assessment & Plan - Assessment and Plan (Free Text) Plan: ASSESSMENT/PLAN 77 year old female with a past medical history of ESRD on dialysis M--, chronic cholecystitis, liver cysts with chronic ascites for which she has a paracentesis twice monthly, hypertension, chronic edema, history of C. diff on oral vancomycin, who presents to the ED with the complaint of abdominal pain s/ p paracentesis. Also has significant hyperkalemia of 5.9 1) Abdominal pain s/p paracentesis, undetermined etiology. Perf thought to be less likely given no leukocytosis, hemodynamically stable; however must be evaluated given paracentesis today. differential also includes appendicitis, cholecystitis, or pain related to c. diff colitis - Observation status - CT scan being performed now for further evaluation - Dilaudid sliding scale for pain - Consider GI consultation depending on results 2) Hyperkalemia, 5.9, in the setting of ESRD - Dr. Gutiérrez on consultation - Kayexelate given in ED - For dialysis tomorrow for further correction - Repeat CBC, CMP in AM - Continue Clorazepate 3.75 mg po - Continue Sensipar 30 mg po daily - Continue Sevelamer 800 mg po TID 3) Atrial fibrillation - Continue Digoxin - Continue Lopressor 4) Hx of hypotension - Continue Midodrine 5) C. diff colitis, chronic - Continue oral Vancomycin 6) DVT prophylaxis - Restart Eliquis if no evidence of perf - SCDs
--- NOTE | 2017-09-11 18:35 | CT ---
PROCEDURE: CT Abdomen and Pelvis without intravenous contrast HISTORY: abdominal pain, c.dif hx, paracentesis 09/07 Relevant interventional procedure(s): Serial paracenteses the most recent performed on September 07 retrieved 5 L of straw-colored fluid. COMPARISON: 04/28/2015 CT abdomen TECHNIQUE: Unenhanced study. Neither oral nor intravenous contrast administered. Sensitivity and specificity for acute inflammatory processes limited by the absence of oral and intravenous contrast. Radiation dose: Total exam DLP = 498.72 mGy-cm. This CT exam was performed using one or more of the following dose reduction techniques: Automated exposure control, adjustment of the mA and/or kV according to patient size, and/or use of iterative reconstruction technique. FINDINGS: LOWER THORAX: Infiltrate basilar segment right lower lobe. Consolidative changes identified previously right lower lobe. These are approximately stable with respect to overall appearance. Trace right pleural effusion. Pleural calcifications likely related to talc pleurodesis. Similar findings identified on the prior study. LIVER: Cirrhotic appearing liver overall appearance, configuration contour approximately stable compared to the prior study. GALLBLADDER AND BILE DUCTS: Cholelithiasis without CT evidence of acute cholecystitis. PANCREAS: Unremarkable. No gross lesion or ductal dilatation. SPLEEN: Unremarkable. ADRENALS: Unremarkable. No mass. KIDNEYS AND URETERS: Evidence of polycystic kidney disease approximately stable compared to the prior study. No suspicious renal masses identified. VASCULATURE: Unremarkable. No aortic aneurysm. BOWEL: Diverticulosis without an acute inflammatory component or other associated pathologic process. No evidence of colitis, accuracy limited by the absence of oral contrast and presence of considerable abdominal and pelvic ascites. APPENDIX: No abnormalities to suggest acute appendicitis. No right lower quadrant inflammatory processes identified. PERITONEUM: Large volume ascites in the abdomen and pelvis. LYMPH NODES: Unremarkable. No enlarged lymph nodes. BLADDER: Unremarkable. REPRODUCTIVE: Unremarkable. BONES: No acute fracture. OTHER FINDINGS: None. IMPRESSION: No acute findings related to/accounting for the clinical presentation. Persistent abdominal and pelvic ascites. Cholelithiasis without CT evidence of acute cholecystitis. Stable manifestations of polycystic kidney disease. Additional benign and/or incidental findings described above.
[2017-09-11] MEDS ORDERED: Sodium Chloride 0.9% 1,000 ML IV SCH (23:45)
[2017-09-12] MEDS: Vancomycin 500 mg (Oral/Rectal USE) PO SCH ×5 (00:44→21:15)
[2017-09-12 05:41] LABS: HEMATOCRIT 32.9 % (34.0-47.0); MEAN CELL VOLUME 98.3 fl (81.0-99.0); MEAN CORPUSCULAR HEMOGLOBIN 32.2 pg (27.0-31.0); MEAN CORPUSCULAR HGB CONC 32.8 g/dL (33.0-37.0); RED CELL DISTRIBUTION WIDTH 14.7 % (11.5-14.5); WHITE BLOOD COUNT 5.7 K/uL (4.8-10.8)
[2017-09-12] MEDS ORDERED: Sodium Chloride 0.9% 250 ML IV ONE (06:46)
[2017-09-12 06:51] LABS: ALB/GLOB RATIO 0.9 (1.0-2.1); BILIRUBIN,TOTAL 0.7 mg/dl (0.2-1.3); CALCIUM 6.7 mg/dL (8.4-10.2); POTASSIUM 5.9 MMOL/L (3.6-5.0); TOTAL PROTEIN 5.3 G/DL (6.3-8.2)
[2017-09-12] MEDS ORDERED: Albumin Human 25% (12.5 gm/50 ml) IV STA (07:44)
[2017-09-12] MEDS: Multivitamin Vitamin B Complex (Nephro-Vite) Tab PO SCH (08:57)
[2017-09-12] MEDS: Pantoprazole 40 mg EC Tab PO SCH (08:57)
[2017-09-12] MEDS ORDERED: Epoetin Alfa 20000 UNIT/ML Inj IV ONE (11:13)
--- NOTE | 2017-09-12 11:22 | CP.PCM.CON ---
History of Present Illness - History of Present Illness History of Present Illness: Patient is a 77 years of age known to me with end stage renal disease on maintenance hemodialysis 3 times a week Monday. She was having dialysis yesterday anxious thought to have abdominal pain actually she came with abdominal pain as well however also she became tachycardic and hemodialysis has to be terminated and sent to the emergency room for further evaluation. Patient was having nausea as well. Past medical history very complicated related to multitude of admissions related to chronic congestive heart failure in the past however in the past 1 year or so she has no admission for that problem because she has been doing okay on outpatient dialysis. Although she is requiring paracentesis just about every 2 weeks and the most recent one just recently with 5 L removed and she started to have abdominal pain next day or so. Also past medical history and surgical history as related to pericardial window has been done in the past because of pericardial effusion also pacemaker. Patient has history of intermittent atrial fibrillation in the past. also patient has history of chronic thrombocytopenia, Medications reviewed Review of system as noted and the social history not contributory the daughter at the bedside Review of Systems - Constitutional Constitutional: As Per HPI, Anorexia, Weight Loss - EENT Eyes: As Per HPI Nose/Mouth/Throat: As Per HPI. absent: Nasal Discharge - Cardiovascular Cardiovascular: Dyspnea on Exertion, Irregular Heart Rhythm. absent: Chest Pain , Edema, Leg Edema - Respiratory Respiratory: absent: Hemoptysis, Wheezing - Gastrointestinal Gastrointestinal: absent: Coffee Ground Emesis, Vomiting - Genitourinary Genitourinary: Nocturia. absent: Dysuria, Flank Pain - Musculoskeletal Musculoskeletal: Muscle Weakness. absent: Deformity, Numbness - Neurological Neurological: absent: Abnormal Movements, Confusion, Memory Loss - Psychiatric Psychiatric: As Per HPI. absent: Confusion - Hematologic/Lymphatic Hematologic: absent: Easy Bleeding Past Patient History - Infectious Disease Hx of Infectious Diseases: None - Tetanus Immunizations Tetanus Immunization: Unknown - Past Medical History & Family History Past Medical History?: Yes - Past Social History Smoking Status: Never Smoked - CARDIAC Hx Cardiac Disorders: Yes Hx Atrial Fibrillation: Yes Hx Hypertension: Yes Hx Pacemaker: Yes (left femoral) Hx Peripheral Edema: Yes - PULMONARY Hx Pneumonia: Yes - NEUROLOGICAL Hx Neurological Disorder: No - HEENT Hx Cataracts: Yes Hx Glaucoma: Yes - RENAL Hx Chronic Kidney Disease: Yes Hx Dialysis: Yes Type of Dialysis Access: NARAYAN shunt Hx Kidney Stones: No - ENDOCRINE/METABOLIC Hx Endocrine Disorders: No - HEMATOLOGICAL/ONCOLOGICAL Hx Anemia: Yes Hx Human Immunodeficiency Virus (HIV): No - INTEGUMENTARY Hx Dermatological Problems: No - MUSCULOSKELETAL/RHEUMATOLOGICAL Hx Arthritis: Yes Hx Falls: No Hx Fractures: No - GASTROINTESTINAL Hx Diverticulitis: Yes - GENITOURINARY/GYNECOLOGICAL Hx Genitourinary Disorders: No - PSYCHIATRIC Hx Anxiety: Yes Hx Substance Use: No - SURGICAL HISTORY Hx Surgeries: Yes Other/Comment: PARACENTESIS SERIES. Hip replacement - ANESTHESIA Hx Anesthesia: Yes Hx Anesthesia Reactions: Yes (HARD TO WAKE UP) Hx Malignant Hyperthermia: No Meds Allergies/Adverse Reactions: Allergies Allergy/AdvReac Type Severity Reaction Status Date / Time Penicillins Allergy RASH Verified 09/07/17 11:42 morphine AdvReac HEADACHE Verified 09/07/17 11:42 mayonnaise AdvReac VOMITING Uncoded 09/07/17 11:42 - Medications Medications: Current Medications Acetaminophen (Tylenol 325mg Tab) 650 mg PO Q6 PRN PRN Reason: Pain, Mild (1-3) Apixaban (Eliquis) 2.5 mg PO Q12H [facility] PRN Reason: Protocol Cinacalcet (Sensipar) 30 mg PO DAILY [facility] Last Admin: 09/12/17 08:58 Dose: 30 mg Clorazepate Dipotassium (Tranxene-T) 3.75 mg PO [facility] Last Admin: 09/12/17 06:47 Dose: Not Given Digoxin (Lanoxin) 0.25 mg PO MWF [facility] Epoetin Blade (Procrit) 2,000 u IV TTS ONE Stop: 09/12/17 11:14 Vancomycin HCl 1,000 mg/ (Sodium Chloride) 250 mls @ 250 mls/hr IVPB ONCE ONE PRN Reason: Protocol Stop: 09/12/17 11:45 Levofloxacin/Dextrose (Levaquin 500mg) 500 mg in 100 mls @ 100 mls/hr IVPB [facility] [place] Reason: Protocol Metoprolol Tartrate (Lopressor) 25 mg PO DAILY [facility] Last Admin: 09/12/17 08:50 Dose: Not Given Midodrine (Proamatine) 10 mg PO DAILY [facility] Last Admin: 09/12/17 10:19 Dose: 10 mg Ondansetron HCl (Zofran Inj) 4 mg IVP Q6 PRN PRN Reason: Nausea/Vomiting Last Admin: 09/11/17 20:11 Dose: 4 mg Pantoprazole Sodium (Protonix Ec Tab) 40 mg PO DAILY [facility] Last Admin: 09/12/17 08:57 Dose: 40 mg Prednisone (Prednisone Tab) 2.5 mg PO MOFR [facility] Last Admin: 09/11/17 22:38 Dose: Not Given Sevelamer HCl (Renagel) 800 mg PO TID [facility] Last Admin: 09/12/17 09:04 Dose: Not Given Timolol Maleate (Timoptic 0.5% Ophth Soln) 1 drop OU DAILY [facility] Last Admin: 09/12/17 08:58 Dose: 1 drop Vancomycin HCl (Vancocin (Oral/Rectal Use)) 250 mg PO QID [facility] Last Admin: 09/12/17 08:59 Dose: 250 mg Vitamin B Complex/Vit C/Folic Acid (Nephro-Joshua) 1 tab PO DAILY [facility] Last Admin: 09/12/17 08:57 Dose: 1 tab Physical Exam - Constitutional Appears: No Acute Distress - ENT Exam ENT Exam: Mucous Membranes Moist - Neck Exam Neck exam: Negative for: Lymphadenopathy - Respiratory Exam Respiratory Exam: NORMAL BREATHING PATTERN. absent: Chest Wall Tenderness - Cardiovascular Exam Cardiovascular Exam: absent: JVD, Rubs - GI/Abdominal Exam GI & Abdominal Exam: Guarding, Normal Bowel Sounds - Extremities Exam Extremities exam: Negative for: calf tenderness - Back Exam Back exam: absent: CVA tenderness (L), CVA tenderness (R) - Neurological Exam Neurological exam: Alert - Skin Skin Exam: Intact, Normal Color Results - Vital Signs Recent Vital Signs: Last Vital Signs Temp 98.1 F 09/12/17 08:00 Pulse 89 09/12/17 08:50 Resp 18 09/12/17 08:00 BP 99/56 L 09/12/17 08:50 Pulse Ox 99 09/12/17 08:00 - Labs Result Diagrams: 09/12/17 04:15 09/12/17 04:15 Labs: Laboratory Results - last 24 hr 09/11/17 09/11/17 09/11/17 13:05 13:10 13:10 WBC 5.1 RBC 3.65 L Hgb 11.6 L Hct 35.6 MCV 97.4 MCH 31.9 H MCHC 32.7 L RDW 14.4 Plt Count 102 L MPV 10.1 Neut % (Auto) 86.2 H Lymph % (Auto) 4.6 L [place] % (Auto) 9.0 Eos % (Auto) 0.1 Baso % (Auto) 0.1 Neut # 4.4 Lymph # 0.2 L [place] # 0.5 Eos # 0.0 Baso # 0.0 Neutrophils % (Manual) 88 H Lymphocytes % (Manual) 3 L Monocytes % (Manual) 8 Basophils % (Manual) 1 Toxic Granulation Present Platelet Estimate Decreased L Large Platelets Present Hypochromasia (manual) Slight PT INR APTT Sodium Potassium Chloride Carbon Dioxide Anion Gap BUN Creatinine Est GFR ( Amer) Est GFR (Non-Af Amer) Random Glucose Calcium Total Bilirubin AST ALT Alkaline Phosphatase Ammonia < 9 L Troponin I Total Protein Albumin Globulin Albumin/Globulin Ratio Amylase Lipase Blood Type Cancelled Antibody Screen Cancelled BBK History Checked Cancelled 09/11/17 09/11/17 09/11/17 13:10 15:14 15:14 WBC RBC Hgb Hct MCV MCH MCHC RDW Plt Count MPV Neut % (Auto) Lymph % (Auto) [place] % (Auto) Eos % (Auto) Baso % (Auto) Neut # Lymph # [place] # Eos # Baso # Neutrophils % (Manual) Lymphocytes % (Manual) Monocytes % (Manual) Basophils % (Manual) Toxic Granulation Platelet Estimate Large Platelets Hypochromasia (manual) PT 15.9 H INR 1.4 H APTT 37.8 H Sodium 134 Potassium 5.9 H Chloride 97 L Carbon Dioxide 26 Anion Gap 17 BUN 120 H* D Creatinine 7.2 H Est GFR ( Amer) 7 Est GFR (Non-Af Amer) 6 Random Glucose 76 Calcium 6.8 L Total Bilirubin 0.9 AST 29 ALT 36 Alkaline Phosphatase 101 Ammonia Troponin I 0.0490 Total Protein 5.5 L Albumin 2.6 L Globulin 2.9 Albumin/Globulin Ratio 0.9 L Amylase 113 H Lipase 64 Blood Type Cancelled Antibody Screen Cancelled BBK History Checked Cancelled 09/12/17 09/12/17 04:15 04:15 WBC 5.7 RBC 3.35 L Hgb 10.8 L Hct 32.9 L MCV 98.3 MCH 32.2 H MCHC 32.8 L RDW 14.7 H Plt Count 89 L MPV Neut % (Auto) Lymph % (Auto) [place] % (Auto) Eos % (Auto) Baso % (Auto) Neut # Lymph # [place] # Eos # Baso # Neutrophils % (Manual) Lymphocytes % (Manual) Monocytes % (Manual) Basophils % (Manual) Toxic Granulation Platelet Estimate Large Platelets Hypochromasia (manual) PT INR APTT Sodium 138 Potassium 5.9 H Chloride 100 Carbon Dioxide 24 Anion Gap 20 BUN 115 H* Creatinine 8.1 H* Est GFR ( Amer) 6 Est GFR (Non-Af Amer) 5 Random Glucose 85 Calcium 6.7 L Total Bilirubin 0.7 AST 24 ALT 40 Alkaline Phosphatase 100 Ammonia Troponin I Total Protein 5.3 L Albumin 2.5 L Globulin 2.8 Albumin/Globulin Ratio 0.9 L Amylase Lipase Blood Type Antibody Screen BBK History Checked Assessment & Plan (1) ESRD (end stage renal disease) on dialysis Assessment and Plan: Patient with end stage renal disease on maintenance hemodialysis Monday patient did not complete dialysis yesterday because of abdominal pain and tachycardia Rule out peritonitis because of the previous paracentesis. to give empiric treatment with Zosyn and and vancomycin Hyperkalemia. Uremia with end stage renal disease. Patient going to need dialysis as soon as possible ' HD started now. hypotension to give albumin. Status: Acute (2) Hyperkalemia Status: Acute (3) Abdominal pain Status: Acute Priority: High (4) Ascites Status: Acute
--- NOTE | 2017-09-12 11:37 | CP.PCM.PN ---
Subjective - Date & Time of Evaluation Date of Evaluation: 09/12/17 Time of Evaluation: 11:00 - Subjective Subjective: Patient was seen and examined at bedside. She reports that her abdominal pain has improved but she is still runner upon abdominal palpation. Daughter is at bedside- the patient has missed dialysis for the last 5 days due to her upcoming paracentesis. Overnight the patient had nausea/vomiting after Dilaudid administration- this was discontinued. Diet advanced to clear liquids. Patient denies chest pain, shortness of breath, fevers, chills, diarrhea, headache. All of the patient's and/or family's questions were answered at the bedside. Objective - Vital Signs/Intake and Output Vital Signs (last 24 hours): Temp Pulse Resp BP Pulse Ox 98.1 F 89 18 99/56 L 99 09/12/17 08:00 09/12/17 08:50 09/12/17 08:00 09/12/17 08:50 09/12/17 08:00 - Medications Medications: Current Medications Acetaminophen (Tylenol 325mg Tab) 650 mg PO Q6 PRN PRN Reason: Pain, Mild (1-3) Apixaban (Eliquis) 2.5 mg PO Q12H [facility] PRN Reason: Protocol Cinacalcet (Sensipar) 30 mg PO DAILY [facility] Last Admin: 09/12/17 08:58 Dose: 30 mg Clorazepate Dipotassium (Tranxene-T) 3.75 mg PO HS [facility] Last Admin: 09/12/17 06:47 Dose: Not Given Digoxin (Lanoxin) 0.25 mg PO F [facility] Vancomycin HCl 1,000 mg/ (Sodium Chloride) 250 mls @ 250 mls/hr IVPB ONCE ONE PRN Reason: Protocol Stop: 09/12/17 11:45 Levofloxacin/Dextrose (Levaquin 500mg) 500 mg in 100 mls @ 100 mls/hr IVPB [facility] [place] PRN Reason: Protocol Metoprolol Tartrate (Lopressor) 25 mg PO DAILY [facility] Last Admin: 09/12/17 08:50 Dose: Not Given Midodrine (Proamatine) 10 mg PO DAILY [facility] Last Admin: 09/12/17 10:19 Dose: 10 mg Ondansetron HCl (Zofran Inj) 4 mg IVP Q6 PRN PRN Reason: Nausea/Vomiting Last Admin: 09/11/17 20:11 Dose: 4 mg Pantoprazole Sodium (Protonix Ec Tab) 40 mg PO DAILY [facility] Last Admin: 09/12/17 08:57 Dose: 40 mg Prednisone (Prednisone Tab) 2.5 mg PO MOFR [facility] Last Admin: 09/11/17 22:38 Dose: Not Given Sevelamer HCl (Renagel) 800 mg PO TID [facility] Last Admin: 09/12/17 09:04 Dose: Not Given Timolol Maleate (Timoptic 0.5% Oph Soln) 1 drop OU DAILY [facility] Last Admin: 09/12/17 08:58 Dose: 1 drop Vancomycin HCl (Vancocin (Oral/Rectal Use)) 250 mg PO QID [facility] Last Admin: 09/12/17 08:59 Dose: 250 mg Vitamin B Complex/Vit C/Folic Acid (Nephro-Joshua) 1 tab PO DAILY [facility] Last Admin: 09/12/17 08:57 Dose: 1 tab - Labs Labs: 09/12/17 04:15 09/12/17 04:15 PT 15.9 Seconds (9.8-13.1) H 09/11/17 13:10 INR 1.4 (0.9-1.2) H 09/11/17 13:10 APTT 37.8 Seconds (25.6-37.1) H 09/11/17 13:10 - Additional Findings Additional findings: Constitutional- cooperative, awake, alert. Appears comfortable Head- NCAT, PERRL Eye- PERRL, normal accommodation ENT- normal exam, MMM. Neck- normal inspection, supple, no JVD Respiratory- CTAB, no wheezes rales rhonchi Cardiovascular- RRR, +S1, +S2 no MRG GI/Abdominal- mild generalized abdominal tenderness Skin- warm, dry Extremities Exam- normal capillary refill, normal inspection Neurological Exam- alert, stable gait Psych- normal mood, normal affect Assessment and Plan - Assessment and Plan (Free Text) Plan: ASSESSMENT/PLAN 77 year old female with a past medical history of ESRD on dialysis M--, chronic cholecystitis, liver cysts with chronic ascites for which she has a paracentesis twice monthly, hypertension, chronic edema, history of C. diff on oral vancomycin, who presents to the ED with the complaint of abdominal pain s/ p paracentesis. Also has significant hyperkalemia of 5.9 1) Abdominal pain s/p paracentesis, undetermined etiology, r/o SBP, may also be related to delayed hemodialysis and history of c. diff colitis. - CT scan shows no acute findings - Dilaudid discontinued- no further episodes of n/v - Diet advanced to clear liquids, will advance further if she tolerates. - GI consultation with Dr. Ball appreciated - After discussion with Dr. Gutiérrez, will start the patient on Vancomycin and Levaquin today with dialysis and continue with dialysis for total of 1 week. 2) Hyperkalemia, 5.9, in the setting of ESRD - Dr. Gutiérrez on consultation - Kayexelate given in ED - For dialysis tomorrow for further correction - Repeat BMP later today - Continue Clorazepate 3.75 mg po - Continue Sensipar 30 mg po daily - Continue Sevelamer 800 mg po TID 3) Atrial fibrillation - Continue Digoxin - Continue Lopressor 4) Hx of hypotension - Continue Midodrine 5) C. diff colitis, chronic - Continue oral Vancomycin 6) DVT prophylaxis - Restart Eliquis if no evidence of perf - SCDs
--- NOTE | 2017-09-12 11:41 | CARD ---
APPROVED REPORT EKG Measurement Heart [id number] [id number] <Conclusion> Sinus tachycardia with 1st degree AV block ST & T wave abnormality, consider inferior ischemia Abnormal ECG
--- NOTE | 2017-09-12 12:10 | CP.PCM.PN ---
Subjective - Date & Time of Evaluation Date of Evaluation: 09/12/17 Time of Evaluation: 12:05 - Subjective Subjective: Dialysis note She was seen on hemodialysis now. Approximately 45 minutes going on on dialysis. I did give about 25% 50 mL albumin and I give her midodrine 10 mg predialysis. Blood pressure now has gone up to approximately 110 x 68 Pulse. To be okay in the range of mid 70. Daughter at the bedside Discussed the treatment with the manager recruiting Sodium bath 138 Potassium bath 2 mEq Bicarbonate bath 34 Ultrafiltration about 1000 mL as tolerated. Physical exam Chest no rales Heart no rubs Abdomen soft and some guarding. Extremity no edema Impression and plan As noted patient admitted with abdominal pain, rule out peritonitis And very high BUN/creatinine and creatinine and uremia as noted in the lab. Hyperkalemia Hypotension" controlled as noted above Continue hemodialysis TTS. Objective - Vital Signs/Intake and Output Vital Signs (last 24 hours): Temp Pulse Resp BP Pulse Ox 98.1 F 89 18 99/56 L 99 09/12/17 08:00 09/12/17 08:50 09/12/17 08:00 09/12/17 08:50 09/12/17 08:00 - Medications Medications: Current Medications Acetaminophen (Tylenol 325mg Tab) 650 mg PO Q6 PRN PRN Reason: Pain, Mild (1-3) Apixaban (Eliquis) 2.5 mg PO Q12H [facility] PRN Reason: Protocol Cinacalcet (Sensipar) 30 mg PO DAILY [facility] Last Admin: 09/12/17 08:58 Dose: 30 mg Clorazepate Dipotassium (Tranxene-T) 3.[address] [facility] Last Admin: 09/12/17 06:47 Dose: Not Given Digoxin (Lanoxin) 0.25 mg PO [facility] Levofloxacin/Dextrose (Levaquin 500mg) 500 mg in 100 mls @ 100 mls/hr IVPB [facility] PRN Reason: Protocol Metoprolol Tartrate (Lopressor) 25 mg PO DAILY [facility] Last Admin: 09/12/17 08:50 Dose: Not Given Midodrine (Proamatine) 10 mg PO DAILY [facility] Last Admin: 09/12/17 10:19 Dose: 10 mg Ondansetron HCl (Zofran Inj) 4 mg IVP Q6 PRN PRN Reason: Nausea/Vomiting Last Admin: 09/11/17 20:11 Dose: 4 mg Pantoprazole Sodium (Protonix Ec Tab) 40 mg PO DAILY [facility] Last Admin: 09/12/17 08:57 Dose: 40 mg Prednisone (Prednisone Tab) 2.5 mg PO MOFR [facility] Last Admin: 09/11/17 22:38 Dose: Not Given Sevelamer HCl (Renagel) 800 mg PO TID [facility] Last Admin: 09/12/17 09:04 Dose: Not Given Timolol Maleate (Timoptic 0.5% [facility]) 1 drop OU DAILY [facility] Last Admin: 09/12/17 08:58 Dose: 1 drop Vancomycin HCl (Vancocin (Oral/Rectal Use)) 250 mg PO QID [facility] Last Admin: 09/12/17 08:59 Dose: 250 mg Vitamin B Complex/Vit C/Folic Acid (Nephro-Joshua) 1 tab PO DAILY [facility] Last Admin: 09/12/17 08:57 Dose: 1 tab - Labs Labs: 09/12/17 04:15 09/12/17 04:15 PT 15.9 Seconds (9.8-13.1) H 09/11/17 13:10 INR 1.4 (0.9-1.2) H 09/11/17 13:10 APTT 37.8 Seconds (25.6-37.1) H 09/11/17 13:10 Assessment and Plan (1) ESRD (end stage renal disease) on dialysis Status: Acute (2) Hyperkalemia Status: Acute (3) Abdominal pain Status: Acute (4) Ascites Status: Acute
[2017-09-13 06:13] LABS: HEMATOCRIT 33.5 % (34.0-47.0); MEAN CELL VOLUME 98.9 fl (81.0-99.0); MEAN CORPUSCULAR HEMOGLOBIN 31.6 pg (27.0-31.0); RED CELL DISTRIBUTION WIDTH 14.8 % (11.5-14.5); WHITE BLOOD COUNT 5.7 K/uL (4.8-10.8)
[2017-09-13 06:25] LABS: CALCIUM 7.2 mg/dL (8.4-10.2); POTASSIUM 3.7 MMOL/L (3.6-5.0)
--- NOTE | 2017-09-13 06:29 | CON ---
DATE: 09/12/2017 REFERRING PHYSICIAN: Dm Guillory DO REASON FOR CONSULTATION: Abdominal pain. HISTORY OF PRESENT ILLNESS: This is a 77-year-old with end-stage renal disease, on dialysis, chronic cholecystitis with liver cyst, chronic ascites, hypertension, chronic edema, history of C. diff. in the past said she has abdominal pain status post paracentesis. Basically, they took out 5 L about a week ago. Has been having pain, she said, for about three years, now some diarrhea. Pain is the same as before, not different. Currently lying in bed comfortable in no apparent distress. PAST MEDICAL HISTORY: As above. PAST SURGICLAL HISTORY: As above. MEDICATIONS: Have been reviewed. REVIEW OF SYSTEMS: All other systems have been reviewed and negative apart from the HPI. PHYSICAL EXAMINATION: VITAL SIGNS: During the hospital, grossly unremarkable. GENERAL: A pleasant elderly appearing female lying in bed comfortable in no apparent distress. HEENT: Head: Normocephalic and atraumatic. Eyes: Pupils are equally reactive to light bilaterally. No conjunctival pallor or icterus. NECK: Supple. Normal range of motion. No lymphadenopathy appreciated. LUNGS: Coarse breath sounds bilaterally. HEART: S1, S2. Regular rate and rhythm. No murmurs appreciated. ABDOMEN: Soft, nontender. Bowel sounds present. No rebound. No guarding. RECTAL: Deferred. EXTREMITIES: Pulses present bilaterally. SKIN: Warm, dry, and intact. NEUROLOGIC: A and O x3. LABORATORY DATA: Reviewed. WBC 5.7, hemoglobin 10.8, hematocrit of 32.9, neutrophils 86%. BUN 116, creatinine 8.1. C. diff. antigen is positive and toxin is negative. CAT scan was unremarkable. ASSESSMENT AND PLAN: This is a 77-year-old with multiple medical problems. From Gastroenterology standpoint, given there is no absolute white count *------* spontaneous bacterial peritonitis possibility given on admission. We will consider a diagnostic tap to rule out spontaneous bacterial peritonitis. Thank you for the consult. Familia Ball MD/ PhD cc: Dm Guillory DO
[2017-09-13] MEDS ORDERED: levoFLOXacin 500 mg in D5W 500 MG/100 ML BAG IVPB SCH (09:00)
[2017-09-13] MEDS ORDERED: Digoxin 250 mcg (0.25 mg) Tab PO SCH (09:00)
[2017-09-13] MEDS: Multivitamin Vitamin B Complex (Nephro-Vite) Tab PO SCH (09:30)
[2017-09-13] MEDS: Pantoprazole 40 mg EC Tab PO SCH (09:31)
[2017-09-13] MEDS: Vancomycin 500 mg (Oral/Rectal USE) PO SCH ×2 (09:32→13:36)
[2017-09-13 09:39] VITALS: PULSE 76
--- NOTE | 2017-09-13 11:26 | CP.PCM.DIS ---
Provider - Provider Date of Admission: 09/12/17 23:18 Attending physician: Dm Guillory DO Primary care physician: Dr. Snyder Consults: GI consult nephrology consult Time Spent in preparation of Discharge (in minutes): 15 Hospital Course - Lab Results Lab Results: Most Recent Lab Values WBC 5.7 K/uL (4.8-10.8) 09/13/17 05:00 RBC 3.39 Mil/uL (3.80-5.20) L 09/13/17 05:00 Hgb 10.7 g/dL (12.0-16.0) L 09/13/17 05:00 Hct 33.5 % (34.0-47.0) L 09/13/17 05:00 MCV 98.9 fl (81.0-99.0) 09/13/17 05:00 MCH 31.6 pg (27.0-31.0) H 09/13/17 05:00 MCHC 32.0 g/dL (33.0-37.0) L 09/13/17 05:00 RDW 14.8 % (11.5-14.5) H 09/13/17 05:00 Plt Count 97 K/uL (130-400) L 09/13/17 05:00 MPV 10.1 fl (7.2-11.7) 09/11/17 13:10 Neut % (Auto) 86.2 % (50.0-75.0) H 09/11/17 13:10 Lymph % (Auto) 4.6 % (20.0-40.0) L 09/11/17 13:10 [place] % (Auto) 9.0 % (0.0-10.0) 09/11/17 13:10 Eos % (Auto) 0.1 % (0.0-4.0) 09/11/17 13:10 Baso % (Auto) 0.1 % (0.0-2.0) 09/11/17 13:10 Neut # 4.4 K/uL (1.8-7.0) 09/11/17 13:10 Lymph # 0.2 K/uL (1.0-4.3) L 09/11/17 13:10 [place] # 0.5 K/uL (0.0-0.8) 09/11/17 13:10 Eos # 0.0 K/uL (0.0-0.7) 09/11/17 13:10 Baso # 0.0 K/uL (0.0-0.2) 09/11/17 13:10 Neutrophils % (Manual) 88 % (42-75) H 09/11/17 13:10 Lymphocytes % (Manual) 3 % (20-50) L 09/11/17 13:10 Monocytes % (Manual) 8 % (0-10) 09/11/17 13:10 Basophils % (Manual) 1 % (0-2) 09/11/17 13:10 Toxic Granulation Present 09/11/17 13:10 Platelet Estimate Decreased (NORMAL) L 09/11/17 13:10 Large Platelets Present 09/11/17 13:10 Hypochromasia (manual) Slight 09/11/17 13:10 PT 15.9 Seconds (9.8-13.1) H 09/11/17 13:10 INR 1.4 (0.9-1.2) H 09/11/17 13:10 APTT 37.8 Seconds (25.6-37.1) H 09/11/17 13:10 Sodium 137 mmol/l (132-148) 09/13/17 05:00 Potassium 3.7 MMOL/L (3.6-5.0) 09/13/17 05:00 Chloride 99 mmol/L (98-107) 09/13/17 05:00 Carbon Dioxide 29 mmol/L (22-30) 09/13/17 05:00 Anion Gap 13 (10-20) 09/13/17 05:00 BUN 52 mg/dl (7-17) H 09/13/17 05:00 Creatinine 3.8 mg/dl (0.7-1.2) H 09/13/17 05:00 Est GFR ( Amer) 14 09/13/17 05:00 Est GFR (Non-Af Amer) 12 09/13/17 05:00 Random Glucose 90 mg/dL (65-105) 09/13/17 05:00 Calcium 7.2 mg/dL (8.4-10.2) L 09/13/17 05:00 Phosphorus 5.2 mg/dl (2.5-4.5) H 09/12/17 11:40 Total Bilirubin 0.7 mg/dl (0.2-1.3) 09/12/17 04:15 AST 24 U/L (14-36) 09/12/17 04:15 ALT 40 U/L (9-52) 09/12/17 04:15 Alkaline Phosphatase 100 U/L (38-126) 09/12/17 04:15 Ammonia < 9 umo/L (11-51) L 09/11/17 13:10 Troponin I 0.0490 ng/mL (0.00-0.120) 09/11/17 15:14 Total Protein 5.3 G/DL (6.3-8.2) L 09/12/17 04:15 Albumin 2.5 g/dL (3.5-5.0) L 09/12/17 04:15 Globulin 2.8 gm/dL (2.2-3.9) 09/12/17 04:15 Albumin/Globulin Ratio 0.9 (1.0-2.1) L 09/12/17 04:15 Amylase 113 U/L (30-110) H 09/11/17 15:14 Lipase 64 U/L (23-300) 09/11/17 15:14 C. difficile Ag & Toxin Positive (NEGATIVE) H 09/11/17 12:35 Blood Type Cancelled 09/11/17 13:05 Antibody Screen Cancelled 09/11/17 13:05 BBK History Checked Cancelled 09/11/17 15:14 - Hospital Course Hospital Course: 77 year old female with a past medical history of ESRD on dialysis M-W-F, Polycystic kidney disease , cholelithiasis , liver cysts with chronic ascites for which she has a paracentesis twice monthly, hypotension, chronic edema, history of C. diff on oral vancomycin, presented to the ED with the complaint of abdominal pain. patient had parasenthesis last week on . She did not feel well afterwards and she missed HD for 5 days and decided to come to ER for evaluation when she started having abdominal pain. Ct abdomen showed ascites , cholelithiasis with no evidence of cholecystitis . Her blood work up showed K 5.9 . patient admitted to telemetry , GI and nephrology consulted. she underwent stat HD , started on IV pain management and initially started on vanco and levaquine for possible SBP. She remained afebrile with normal WBC count and her abdominal pain resolved after HD and bowel movements making the diagnosis of SBP unlikely. Patient feeling well and would like to go home,. Both patient and daughter would like to continue with HD on monday as scheduled Will discharge patient home. Counselled on continuation of Vanco Po for her C. diff Ag positive . Counselled on renal diet and low Na and continuation of HD as scheduled Will discharge patient home 1.Abdominal pain of unclear etiology SBP unlikely may be related to delayed hemodialysis., ascites and history of c. diff colitis. CT scan shows no acute findings Abdominal pain , nausea and vomiting resolved, tolerating diet GI consultation with Dr. Ball appreciated Continue Vanco Po for c.diff 2. Hyperkalemia 5.9, in the setting of ESRD, received HD Nephrology Dr. Gutiérrez on consultation Kayexelate given in ED Continue Clorazepate 3.75 mg po Continue Sensipar 30 mg po daily Continue Sevelamer 800 mg po TID Continue HD as scheduled 3. ESRD on HD continue with HD as scheduled 4. liver cirrhosis with Ascites and coagulopathy continue with abdominal parasenthesis PRN low salt diet 5.Atrial fibrillation rate controlled Continue Digoxin Continue Lopressor 6. Hx of hypotension - Continue Midodrine 7. C. diff colitis, chronic Continue oral Vancomycin 8. Anemia of chronic disease Hgb 10 9. Thrombocytopenia Chronic , stable 10. Cholelithiasis Ct showed no evidence of cholecystitis no need for antibiotics opr surgery 11.DVT prophylaxis on Eliquist Discharge Exam - Head Exam Head Exam: ATRAUMATIC, NORMAL INSPECTION, NORMOCEPHALIC - Eye Exam Eye Exam: EOMI, Normal appearance, PERRL Pupil Exam: NORMAL ACCOMODATION - ENT Exam ENT Exam: Mucous Membranes Moist, Normal Exam - Neck Exam Neck exam: Full Rom, Normal Inspection - Respiratory Exam Respiratory Exam: Clear to PA & Lateral, NORMAL BREATHING PATTERN. absent: Rhonchi, Wheezes, Respiratory Distress - Cardiovascular Exam Cardiovascular Exam: Irregular Rhythm. absent: JVD - GI/Abdominal Exam GI & Abdominal Exam: Normal Bowel Sounds, Soft. absent: Distended, Guarding, Hernia, Rebound, Tenderness - Rectal Exam Rectal Exam: Deferred - Extremities Exam Extremities exam: normal capillary refill, normal inspection, pedal pulses present - Back Exam Back exam: NORMAL INSPECTION - Neurological Exam Neurological exam: Alert, CN II-XII Intact, Oriented x3, Reflexes Normal - Psychiatric Exam Psychiatric exam: Normal Affect, Normal Mood - Skin Skin Exam: Dry, Intact, Normal Color, Warm Discharge Plan - Follow Up Plan Condition: STABLE Disposition: HOME/ ROUTINE Patient education suggested?: Yes Instructions: Dialysis Diet (DC), End Stage Kidney Disease (DC) Referrals: Jose Snyder MD [Staff Provider] - Robert Gutiérrez MD [Staff Provider] -
--- NOTE | 2017-09-13 11:39 | CP.PCM.PN ---
Subjective - Date & Time of Evaluation Date of Evaluation: 09/13/17 Time of Evaluation: 11:37 - Subjective Subjective: Patient feeling good Nausea and no vomiting No abdominal pain Daughter at the bedside Objective - Vital Signs/Intake and Output Vital Signs (last 24 hours): Temp Pulse Resp BP Pulse Ox 98.4 F 76 18 99/56 L 98 09/13/17 08:00 09/13/17 09:30 09/13/17 08:00 09/13/17 09:30 09/13/17 08:00 - Medications Medications: Current Medications Acetaminophen (Tylenol 325mg Tab) 650 mg PO Q6 PRN PRN Reason: Pain, Mild (1-3) Last Admin: 09/12/17 16:45 Dose: 650 mg Apixaban (Eliquis) 2.5 mg PO Q12H [facility] PRN Reason: Protocol Last Admin: 09/13/17 09:45 Dose: 2.5 mg Cinacalcet (Sensipar) 30 mg PO DAILY [facility] Last Admin: 09/13/17 09:31 Dose: 30 mg Clorazepate Dipotassium (Tranxene-T) 3.75 mg PO [facility] Last Admin: 09/12/17 21:14 Dose: 3.75 mg Digoxin (Lanoxin) 0.25 mg PO MWF [facility] Last Admin: 09/13/17 09:30 Dose: 0.25 mg Levofloxacin/Dextrose (Levaquin 500mg) 500 mg in 100 mls @ 100 mls/hr IVPB [facility] PRN Reason: Protocol Last Admin: 09/13/17 09:40 Dose: 100 mls/hr Metoprolol Tartrate (Lopressor) 25 mg PO DAILY [facility] Last Admin: 09/13/17 09:30 Dose: Not Given Midodrine (Proamatine) 10 mg PO DAILY [facility] Last Admin: 09/13/17 09:31 Dose: 10 mg Ondansetron HCl (Zofran Inj) 4 mg IVP Q6 PRN PRN Reason: Nausea/Vomiting Last Admin: 09/11/17 20:11 Dose: 4 mg Pantoprazole Sodium (Protonix Ec Tab) 40 mg PO DAILY [facility] Last Admin: 09/13/17 09:31 Dose: 40 mg Prednisone (Prednisone Tab) 2.5 mg PO [facility] Last Admin: 12/04/17 22:38 Dose: Not Given Sevelamer HCl (Renagel) 800 mg PO TID [facility] Last Admin: 09/13/17 09:31 Dose: 800 mg Timolol Maleate (Timoptic 0.5% Ophth Soln) 1 drop OU DAILY [facility] Last Admin: 09/13/17 09:31 Dose: 1 drop Vancomycin HCl (Vancocin (Oral/Rectal Use)) 250 mg PO QID [facility] Last Admin: 09/13/17 09:32 Dose: 250 mg Vitamin B Complex/Vit C/Folic Acid (Nephro-Joshua) 1 tab PO DAILY [facility] Last Admin: 09/13/17 09:30 Dose: 1 tab - Labs Labs: 09/13/17 05:00 09/13/17 05:00 PT 15.9 Seconds (9.8-13.1) H 09/11/17 13:10 INR 1.4 (0.9-1.2) H 09/11/17 13:10 APTT 37.8 Seconds (25.6-37.1) H 09/11/17 13:10 - Constitutional Appears: No Acute Distress - Eye Exam Eye Exam: Conjunctival injection - ENT Exam ENT Exam: Mucous Membranes Moist - Neck Exam Neck Exam: absent: Lymphadenopathy - Respiratory Exam Respiratory Exam: absent: Chest Wall Tenderness - Cardiovascular Exam Cardiovascular Exam: absent: JVD, Rubs - GI/Abdominal Exam GI & Abdominal Exam: Soft, Normal Bowel Sounds - Extremities Exam Extremities Exam: absent: Calf Tenderness - Back Exam Back Exam: absent: CVA tenderness (L), CVA tenderness (R) - Neurological Exam Neurological Exam: Alert - Psychiatric Exam Psychiatric exam: Normal Affect - Skin Skin Exam: absent: Cyanosis Assessment and Plan (1) ESRD (end stage renal disease) on dialysis Assessment & Plan: Patient feeling good and she has no symptom . Patient insisting to go home and she will go back to dialysis she refuses to have short treatment dialysis today because next treatment will be Monday. The rest of the problem N change which has been stable Hyperkalemia, corrected The rest of the past history are noted Past medical history very complicated related to multitude of admissions related to chronic congestive heart failure in the past however in the past 1 year or so she has no admission for that problem because she has been doing okay on outpatient dialysis. Although she is requiring paracentesis just about every 2 weeks and the most recent one just recently with 5 L removed and she started to have abdominal pain next day or so. Also past medical history and surgical history as related to pericardial window has been done in the past because of pericardial effusion also pacemaker. Patient has history of intermittent atrial fibrillation in the past. also patient has history of chronic thrombocytopenia, Medications reviewed Status: Acute (2) Hyperkalemia Status: Acute (3) Abdominal pain Status: Acute (4) Ascites Status: Acute
[2017-09-13 12:02] VITALS: O2SAT 100
--- NOTE | 2017-09-13 16:01 | CP.PCM.PN ---
Subjective - Date & Time of Evaluation Date of Evaluation: 09/13/17 Time of Evaluation: 15:50 - Subjective Subjective: less pain Objective - Vital Signs/Intake and Output Vital Signs (last 24 hours): Temp Pulse Resp BP Pulse Ox 97.9 F 80 18 116/64 100 09/13/17 12:00 09/13/17 12:00 09/13/17 12:00 09/13/17 12:00 09/13/17 12:00 - Medications Medications: Current Medications Acetaminophen (Tylenol 325mg Tab) 650 mg PO Q6 PRN PRN Reason: Pain, Mild (1-3) Last Admin: 09/12/17 16:45 Dose: 650 mg Apixaban (Eliquis) 2.5 mg PO Q12H [facility] PRN Reason: Protocol Last Admin: 09/13/17 09:45 Dose: 2.5 mg Cinacalcet (Sensipar) 30 mg PO DAILY [facility] Last Admin: 09/13/17 09:31 Dose: 30 mg Clorazepate Dipotassium (Tranxene-T) 3.75 mg PO [facility] Last Admin: 09/12/17 21:14 Dose: 3.75 mg Digoxin (Lanoxin) 0.25 mg PO F [facility] Last Admin: 09/13/17 09:30 Dose: 0.25 mg Levofloxacin/Dextrose (Levaquin 500mg) 500 mg in 100 mls @ 100 mls/hr IVPB [facility] [place] PRN Reason: Protocol Last Admin: 09/13/17 09:40 Dose: 100 mls/hr Metoprolol Tartrate (Lopressor) 25 mg PO DAILY [facility] Last Admin: 09/13/17 09:30 Dose: Not Given Midodrine (Proamatine) 10 mg PO DAILY [facility] Last Admin: 09/13/17 09:31 Dose: 10 mg Ondansetron HCl (Zofran Inj) 4 mg IVP Q6 PRN PRN Reason: Nausea/Vomiting Last Admin: 09/11/17 20:11 Dose: 4 mg Pantoprazole Sodium (Protonix Ec Tab) 40 mg PO DAILY [facility] Last Admin: 09/13/17 09:31 Dose: 40 mg Prednisone (Prednisone Tab) 2.5 mg PO MOFR [facility] Last Admin: 09/11/17 22:38 Dose: Not Given Sevelamer HCl (Renagel) 800 mg PO TID [facility] Last Admin: 09/13/17 13:36 Dose: 800 mg Timolol Maleate (Timoptic 0.5% Oph Soln) 1 drop OU DAILY [facility] Last Admin: 09/13/17 09:31 Dose: 1 drop Vancomycin HCl (Vancocin (Oral/Rectal Use)) 250 mg PO QID [facility] Last Admin: 09/13/17 13:36 Dose: 250 mg Vitamin B Complex/Vit C/Folic Acid (Nephro-Joshua) 1 tab PO DAILY [facility] Last Admin: 09/13/17 09:30 Dose: 1 tab - Labs Labs: 09/13/17 05:00 09/13/17 05:00 PT 15.9 Seconds (9.8-13.1) H 09/11/17 13:10 INR 1.4 (0.9-1.2) H 09/11/17 13:10 APTT 37.8 Seconds (25.6-37.1) H 09/11/17 13:10 - Head Exam Head Exam: NORMAL INSPECTION - Respiratory Exam Respiratory Exam: NORMAL BREATHING PATTERN - Cardiovascular Exam Cardiovascular Exam: REGULAR RHYTHM - GI/Abdominal Exam GI & Abdominal Exam: Soft, Normal Bowel Sounds Assessment and Plan - Assessment and Plan (Free Text) Assessment: 77 yo female with ascites doing well dc planning once able
[2017-09-13 16:17] VITALS: BP 112/57; PULSE 70; RESP 16; TEMP 97.5
== END 2017-09-13 16:57 | disposition home or self-care (01) | DRG 640 ==
LOC: H.ER 11:50 → INTOOBSV 16:49 → H.ERHOLD 16:49 → H.TEL 21:42 → OBSVTOIN 09-12 23:18
PROVIDERS: ADMIT Internal Medicine; ATTEND Internal Medicine
PROC: 5A1D70Z Performance of Urinary Filtration, Intermittent, Less than 6 Hours Per Day (ICD-10-PCS; principal; 2017-09-12)
DX: E87.5 Hyperkalemia (principal); N18.6 End stage renal disease; I13.2 Hypertensive heart and chronic kidney disease with heart failure and with stage 5 chronic kidney disease, or end stage renal disease; A04.71 Enterocolitis due to Clostridium difficile, recurrent; I95.89 Other hypotension; D68.4 Acquired coagulation factor deficiency; D69.6 Thrombocytopenia, unspecified; I48.91 Unspecified atrial fibrillation; R18.8 Other ascites; Q61.3 Polycystic kidney, unspecified; D63.8 Anemia in other chronic diseases classified elsewhere; K74.60 Unspecified cirrhosis of liver; K80.20 Calculus of gallbladder without cholecystitis without obstruction; I50.9 Heart failure, unspecified; Z99.2 Dependence on renal dialysis; F41.9 Anxiety disorder, unspecified; H40.9 Unspecified glaucoma; M19.90 Unspecified osteoarthritis, unspecified site; Z79.01 Long term (current) use of anticoagulants; Z95.0 Presence of cardiac pacemaker; Z86.19 Personal history of other infectious and parasitic diseases; Z87.01 Personal history of pneumonia (recurrent); Z88.6 Allergy status to analgesic agent; Z88.0 Allergy status to penicillin

== ENCOUNTER 2017-09-28 08:46 | Day surgery (SDC) | payer MEDICARE, MEDICAID ==
[2017-09-28 09:36] VITALS: BMI 19.2
[2017-09-28] MEDS ORDERED: Lidocaine 1% Inj (20ml) ONE (10:12)
[2017-09-28 10:25] VITALS: O2SAT 100
--- NOTE | 2017-09-28 10:39 | CP.SDSHP ---
Same Day Surgery H & P - History Proposed Procedure: US guided paracentesis Pre-Op Diagnosis: recurrent symptomatic ascites - Allergies Allergies: Allergies Penicillins Allergy (Verified 09/28/17 09:51) RASH morphine Adverse Reaction (Verified 09/28/17 09:51) HEADACHE mayonnaise Adverse Reaction (Uncoded 09/28/17 09:51) VOMITING - Physical Exam Vital Signs: Vital Signs 09/28/17 09/28/17 09/28/17 09:39 09:40 10:14 Temperature 97.5 F L 96.6 F L Pulse Rate 84 84 84 Respiratory 18 18 Rate Blood Pressure 111/65 132/69 O2 Sat by Pulse 99 100 Oximetry Mental Status: Alert & Oriented x3 - Impression Impression: 77 yo female w/ recurrent symptomatic ascites Pt. Evaluated Today:Candidate for Anesthesia & Procedure: Yes - Date & Time Date: 09/28/17 Time: 10:38 Short Stay Discharge - Short Stay Discharge Admitting Diagnosis/Reason for Visit: ASCITES/THERAPUTIC PARA Disposition: HOME/ ROUTINE
--- NOTE | 2017-09-28 10:52 | PCM.SURG1 ---
Surgeon's Initial Post Op Note - Surgeon's Notes Surgeon: Bandar Garcias MD Wheat Washer: None Type of Anesthesia: Local Pre-Operative Diagnosis: Ascites Operative Findings: moderate ascites Post-Operative Diagnosis: same Operation Performed: US guided paracentesis Specimen/Specimens Removed: 4.4 L straw colored fluid Estimated Blood Loss: EBL {In ML}: 0 Date of Surgery/Procedure: 09/28/17 Time of Surgery/Procedure: 10:52
--- NOTE | 2017-09-28 11:08 | US ---
PROCEDURE: ULTRASOUND-GUIDED PARACENTESIS CLINICAL HISTORY: 77-year-old female with cirrhosis and recurrent symptomatic ascites is referred to Interventional Radiology for ultrasound-guided paracentesis. COMPARISON: CT scan of the abdomen and pelvis dated 09/11/2017; paracentesis performed 09/07/2017 PROCEDURE: 1. Ultrasound-guided paracentesis. PRE-PROCEDURE FINDINGS: 1. Moderate volume ascites. POST-PROCEDURE FINDINGS: 1. No evidence of post-procedural complication. INTERVENTIONAL RADIOLOGIST: Bandar Garcias M.D. (the attending was present for the entire procedure) ANESTHESIA: None. MEDICATION: Lidocaine 1% for local subcutaneous analgesia. COMPLICATIONS: None. PROCEDURE DESCRIPTION AND FINDINGS: The risks, benefits, alternatives and possible complications of the procedure were fully discussed; all questions were answered and informed consent was obtained. The patient was brought into the interventional suite and a pre-procedure 'time-out' was performed. The patient was placed on the fluoroscopy table in the supine position. Preliminary ultrasound images of the right lower quadrant demonstrate a moderate amount of ascites. The right lower quadrant was prepped and draped in the usual sterile fashion. Maximum sterile barrier precautions were maintained throughout the entire procedure. Following subcutaneous infiltration of lidocaine 1% for local analgesia, under real-time ultrasound guidance, a 6 Estonian centesis catheter was advanced into the right lower quadrant with real-time visualization of needle entry. The ultrasound images were permanently recorded and submitted to the PACS. The inner stylet was removed and the catheter was attached to gentle vacuum suction. A total of 4.4 liters of straw-colored fluid were aspirated. The drainage catheter was then removed. A sterile adhesive bandage was placed over the puncture site. The patient tolerated the procedure well without immediate post-procedure complications and was transferred to the interventional radiology recovery area in stable condition. IMPRESSION: SUCCESSFUL ULTRASOUND-GUIDED THERAPEUTIC PARACENTESIS.
[2017-09-28 11:20] VITALS: BP 119/52; PULSE 103; RESP 20; TEMP 97.6
== END 2017-09-28 12:40 | disposition home or self-care (01) ==
LOC: H.OPSURG 08:46
PROVIDERS: ATTEND Internal Medicine
DX: R18.8 Other ascites (principal); K74.60 Unspecified cirrhosis of liver
CPT/HCPCS: 49083; C1729

== ENCOUNTER 2017-10-19 10:40 | Day surgery (SDC) | payer MEDICARE, MEDICAID ==
[2017-10-19 11:25] VITALS: BMI 19.7
[2017-10-19] MEDS ORDERED: Lidocaine 1% Inj (20ml) ONE (13:14)
[2017-10-19 13:22] VITALS: RESP 18
--- NOTE | 2017-10-19 13:33 | CP.SDSHP ---
Same Day Surgery H & P - History Proposed Procedure: US guided paracentesis Pre-Op Diagnosis: Refractory ascites - Allergies Allergies: Allergies Penicillins Allergy (Verified 10/19/17 11:48) RASH morphine Adverse Reaction (Verified 10/19/17 11:48) HEADACHE mayonnaise Adverse Reaction (Uncoded 10/19/17 11:48) VOMITING - Physical Exam Vital Signs: Vital Signs 10/19/17 10/19/17 10/19/17 11:26 11:33 13:11 Temperature 97.5 F L 97.4 F L Pulse Rate 71 71 73 Respiratory 20 18 Rate Blood Pressure 115/56 L 123/58 L O2 Sat by Pulse 100 99 Oximetry Mental Status: Alert & Oriented x3 - {Optional Preform as Required} Abdomen: Other (distended) - Impression Impression: Pt with refractory ascites referred for paracentesis. Plan US guided paracentesis. Pt. Evaluated Today:Candidate for Anesthesia & Procedure: No Short Stay Discharge - Short Stay Discharge Admitting Diagnosis/Reason for Visit: ASCITES
--- NOTE | 2017-10-19 13:56 | PCM.SURG1 ---
Surgeon's Initial Post Op Note - Surgeon's Notes Surgeon: Javier Thompson MD Flight Attendant Ramp: NONE Type of Anesthesia: Local Pre-Operative Diagnosis: Ascites, abdominal discomfort Operative Findings: US showed a large amount of ascites Post-Operative Diagnosis: Ascites Operation Performed: US guided paracentesis Specimen/Specimens Removed: 5200 cc of straw colored fluid Estimated Blood Loss: EBL {In ML}: 0 Blood Products Given: N/A Drains Used: No Drains Post-Op Condition: Fair Date of Surgery/Procedure: 10/19/17 Time of Surgery/Procedure: 13:50
[2017-10-19 14:12] VITALS: O2SAT 100
[2017-10-19 14:43] VITALS: BP 104/59; PULSE 98; TEMP 97.9
== END 2017-10-19 16:15 | disposition home or self-care (01) ==
LOC: H.OPSURG 10:40
PROVIDERS: ATTEND Internal Medicine
DX: R18.8 Other ascites (principal)
CPT/HCPCS: 49083; C1729

== ENCOUNTER 2017-11-07 09:12 | Day surgery (SDC) | payer MEDICARE, MEDICAID ==
[2017-11-07 10:16] VITALS: BMI 19.9
[2017-11-07] MEDS ORDERED: Lidocaine 1% Inj (20ml) ONE (11:19)
[2017-11-07 11:56] VITALS: RESP 18
--- NOTE | 2017-11-07 12:36 | CP.SDSHP ---
Same Day Surgery H & P - History Proposed Procedure: us guided paracentesis Pre-Op Diagnosis: refractory ascites - Allergies Allergies: Allergies Penicillins Allergy (Verified 10/19/17 11:48) RASH morphine Adverse Reaction (Verified 10/19/17 11:48) HEADACHE mayonnaise Adverse Reaction (Uncoded 10/19/17 11:48) VOMITING - Physical Exam Vital Signs: Vital Signs 11/07/17 11/07/17 11/07/17 10:08 10:22 11:45 Temperature 97.5 F L 96.8 F L Pulse Rate 70 70 Pulse Rate [ 70 Radial] Respiratory 20 18 Rate Blood Pressure 117/45 L 129/57 L O2 Sat by Pulse 100 99 Oximetry 11/07/17 12:21 Temperature 97.0 F L Pulse Rate 70 Pulse Rate [ Radial] Respiratory 18 Rate Blood Pressure 121/51 L O2 Sat by Pulse 99 Oximetry - Impression Impression: 77yo female w/ refractory ascites; plan us guided paracentesis - Date & Time Date: 11/07/17 Time: 12:00 Short Stay Discharge - Short Stay Discharge Admitting Diagnosis/Reason for Visit: ASCITES/THERAPUTIC PARA Disposition: HOME/ ROUTINE Referrals: FAMILY PROVIDER,NO [Primary Care Provider] -
--- NOTE | 2017-11-07 12:37 | PCM.SURG1 ---
Surgeon's Initial Post Op Note - Surgeon's Notes Surgeon: Bandar Garcias MD Printer Technician: None Type of Anesthesia: Local Pre-Operative Diagnosis: refractory ascites Operative Findings: large volume ascites Post-Operative Diagnosis: same Operation Performed: US guided paracentesis Specimen/Specimens Removed: 5.3 liters straw colored fluid removed Estimated Blood Loss: EBL {In ML}: 0 Date of Surgery/Procedure: 11/07/17 Time of Surgery/Procedure: 12:15
[2017-11-07 12:44] VITALS: O2SAT 100
[2017-11-07 15:09] VITALS: BP 115/76; PULSE 68; TEMP 97.6
--- NOTE | 2017-11-08 08:37 | US ---
PROCEDURE: ULTRASOUND-GUIDED PARACENTESIS CLINICAL HISTORY: 77-year-old female with cirrhosis and recurrent symptomatic ascites is referred to Interventional Radiology for ultrasound-guided paracentesis. COMPARISON: Paracentesis performed 10/19/2017. PROCEDURE: 1. Ultrasound-guided paracentesis. PRE-PROCEDURE FINDINGS: 1. Large volume ascites. POST-PROCEDURE FINDINGS: 1. No evidence of post-procedural complication. INTERVENTIONAL RADIOLOGIST: Bandar Garcias M.D. (the attending was present for the entire procedure) ANESTHESIA: None. MEDICATION: Lidocaine 1% for local subcutaneous analgesia. COMPLICATIONS: None. PROCEDURE DESCRIPTION AND FINDINGS: The risks, benefits, alternatives and possible complications of the procedure were fully discussed; all questions were answered and informed consent was obtained. The patient was brought into the interventional suite and a pre-procedure 'time-out' was performed. The patient was placed on the fluoroscopy table in the supine position. Preliminary ultrasound images of the right lower quadrant demonstrate a large amount of ascites. The right lower quadrant was prepped and draped in the usual sterile fashion. Maximum sterile barrier precautions were maintained throughout the entire procedure. Following subcutaneous infiltration of lidocaine 1% for local analgesia, under real-time ultrasound guidance, a 5 Italian centesis catheter was advanced into the right lower quadrant with real-time visualization of needle entry. The ultrasound images were permanently recorded and submitted to the PACS. The inner stylet was removed and the catheter was attached to gentle vacuum suction. A total of 5.3 liters of straw-colored fluid were aspirated. A sample was submitted to the laboratory for analysis. The drainage catheter was then removed. A sterile adhesive bandage was placed over the puncture site. The patient tolerated the procedure well without immediate post-procedure complications and was transferred back to the floor in stable condition. IMPRESSION: SUCCESSFUL ULTRASOUND-GUIDED THERAPEUTIC PARACENTESIS.
== END 2017-11-07 15:10 | disposition home or self-care (01) ==
LOC: H.OPSURG 09:12
PROVIDERS: ATTEND Internal Medicine
DX: R18.8 Other ascites (principal)
CPT/HCPCS: 49083; C1729

== ENCOUNTER 2017-11-21 08:08 | Day surgery (SDC) | payer MEDICARE, MEDICAID ==
[2017-11-21 08:23] VITALS: BMI 19.7
[2017-11-21 08:25] VITALS: RESP 18
[2017-11-21] MEDS ORDERED: Lidocaine 1% Inj (20ml) ONE (09:05)
--- NOTE | 2017-11-21 11:41 | CP.SDSHP ---
Same Day Surgery H & P - History Proposed Procedure: us guided paracentesis Pre-Op Diagnosis: refractory ascites - Allergies Allergies: Allergies Penicillins Allergy (Verified 11/21/17 08:27) RASH morphine Adverse Reaction (Verified 11/21/17 08:27) HEADACHE mayonnaise Adverse Reaction (Uncoded 11/21/17 08:27) VOMITING - Physical Exam Vital Signs: Vital Signs 11/21/17 11/21/17 11/21/17 08:23 09:06 10:30 Temperature 97.5 F L 97.4 F L Pulse Rate 69 70 68 Respiratory 18 18 18 Rate Blood Pressure 106/57 L 116/59 L 108/53 L O2 Sat by Pulse 99 Oximetry - Impression Impression: 77 yo female w/ recurrent symptomatic ascites; plan us guided paracentesis - Date & Time Date: 11/21/17 Time: 09:30 Short Stay Discharge - Short Stay Discharge Admitting Diagnosis/Reason for Visit: OTHER ASCITES END STAGE RENAL DISEASE Disposition: HOME/ ROUTINE Referrals: FAMILY PROVIDER,NO [Primary Care Provider] -
--- NOTE | 2017-11-21 11:42 | PCM.SURG1 ---
Surgeon's Initial Post Op Note - Surgeon's Notes Surgeon: Bandar Garcias MD Tracer Bullet Charging Machine Operator: NOne Type of Anesthesia: Local Pre-Operative Diagnosis: ascites Operative Findings: large volume ascites Post-Operative Diagnosis: same Operation Performed: US guided paracentesis Specimen/Specimens Removed: 5.8 liters straw colored fluid removed Estimated Blood Loss: EBL {In ML}: 0 Date of Surgery/Procedure: 11/21/17 Time of Surgery/Procedure: 10:00
[2017-11-21 11:49] VITALS: BP 116/33; PULSE 71; TEMP 98.3; O2SAT 100
--- NOTE | 2017-11-21 11:50 | US ---
PROCEDURE: ULTRASOUND-GUIDED PARACENTESIS CLINICAL HISTORY: 77-year-old female with cirrhosis and recurrent symptomatic ascites is referred to Interventional Radiology for ultrasound-guided paracentesis. COMPARISON: Ultrasound-guided paracentesis performed 11/07/2017. PROCEDURE: 1. Ultrasound-guided paracentesis. PRE-PROCEDURE FINDINGS: 1. Large volume ascites. POST-PROCEDURE FINDINGS: 1. No evidence of post-procedural complication. INTERVENTIONAL RADIOLOGIST: Bandar Garcias M.D. (the attending was present for the entire procedure) ANESTHESIA: None. MEDICATION: Lidocaine 1% for local subcutaneous analgesia. COMPLICATIONS: None. PROCEDURE DESCRIPTION AND FINDINGS: The risks, benefits, alternatives and possible complications of the procedure were fully discussed; all questions were answered and informed consent was obtained. The patient was brought into the interventional suite and a pre-procedure 'time-out' was performed. The patient was placed on the fluoroscopy table in the supine position. Preliminary ultrasound images of the right lower quadrant demonstrate a large amount of ascites. The right lower quadrant was prepped and draped in the usual sterile fashion. Maximum sterile barrier precautions were maintained throughout the entire procedure. Following subcutaneous infiltration of lidocaine 1% for local analgesia, under real-time ultrasound guidance, a 5 [place] centesis catheter was advanced into the right lower quadrant with real-time visualization of needle entry. The ultrasound images were permanently recorded and submitted to the PACS. The inner stylet was removed and the catheter was attached to gentle vacuum suction. A total of 5.8 liters of straw-colored fluid were aspirated. The drainage catheter was then removed. A sterile adhesive bandage was placed over the puncture site. The patient tolerated the procedure well without immediate post-procedure complications and was transferred back to the floor in stable condition. IMPRESSION: SUCCESSFUL ULTRASOUND-GUIDED THERAPEUTIC PARACENTESIS.
== END 2017-11-21 12:35 | disposition home or self-care (01) ==
LOC: H.OPSURG 08:08
PROVIDERS: ATTEND Internal Medicine
DX: R18.8 Other ascites (principal); N18.6 End stage renal disease; K74.60 Unspecified cirrhosis of liver; Z88.0 Allergy status to penicillin
CPT/HCPCS: 49083; C1729

== ENCOUNTER 2017-12-05 10:11 | Day surgery (SDC) | payer MEDICARE, MEDICAID ==
[2017-12-05 11:30] VITALS: BMI 19.9
[2017-12-05] MEDS ORDERED: Lidocaine 1% Inj (20ml) ONE (11:45)
--- NOTE | 2017-12-05 12:30 | CP.SDSHP ---
Same Day Surgery H & P - History Proposed Procedure: US guided paracentesis Pre-Op Diagnosis: Ascites - Allergies Allergies: Allergies Penicillins Allergy (Verified 12/05/17 11:31) RASH morphine Adverse Reaction (Verified 12/05/17 11:31) HEADACHE mayonnaise Adverse Reaction (Uncoded 12/05/17 11:31) VOMITING - Physical Exam Vital Signs: Vital Signs 12/05/17 11:52 Temperature 97.1 F L Pulse Rate 73 Respiratory 18 Rate Blood Pressure 117/42 L Mental Status: Alert & Oriented x3 Neuro: WNL Heart: WNL Lungs: WNL - {Optional Preform as Required} Abdomen: Other (distended, non tender) - Impression Impression: Pt with refractory ascites referred for paracentiss. Plan US guided paracentesis. Pt. Evaluated Today:Candidate for Anesthesia & Procedure: No - Date & Time Date: 12/05/17 Time: 12:00 Short Stay Discharge - Short Stay Discharge Admitting Diagnosis/Reason for Visit: PARACENTESIS Referrals: FAMILY PROVIDER,NO [Primary Care Provider] -
--- NOTE | 2017-12-05 12:37 | PCM.SURG1 ---
Surgeon's Initial Post Op Note - Surgeon's Notes Surgeon: Javier Woods MD Building Supplies Salesperson Retail: NONE Type of Anesthesia: Local Pre-Operative Diagnosis: Ascites Operative Findings: US showed large amount of ascites Post-Operative Diagnosis: Ascites Operation Performed: US guided paracentesis Specimen/Specimens Removed: 6.2 liters of straw colored fluid Estimated Blood Loss: EBL {In ML}: 0 Blood Products Given: N/A Drains Used: No Drains Post-Op Condition: Good Date of Surgery/Procedure: 12/05/17 Time of Surgery/Procedure: 12:25
[2017-12-05 16:36] VITALS: BP 108/48; PULSE 71; RESP 20; TEMP 98.4; O2SAT 97
== END 2017-12-05 14:45 | disposition home or self-care (01) ==
LOC: H.OPSURG 10:11
PROVIDERS: ATTEND Internal Medicine
DX: R18.8 Other ascites (principal); N18.6 End stage renal disease; K74.60 Unspecified cirrhosis of liver
CPT/HCPCS: 49083; C1729

== ENCOUNTER 2017-12-19 09:56 | Day surgery (SDC) | payer MEDICARE, MEDICAID ==
[2017-12-19 10:51] VITALS: BMI 20.2
[2017-12-19] MEDS ORDERED: Lidocaine 1% Inj (20ml) ONE (11:12)
--- NOTE | 2017-12-19 12:23 | CP.SDSHP ---
Same Day Surgery H & P - History Proposed Procedure: ultrasound guided paracentesis Pre-Op Diagnosis: symptomatic ascites - Allergies Allergies: Allergies Penicillins Allergy (Verified 12/19/17 10:50) RASH morphine Adverse Reaction (Verified 12/19/17 10:50) HEADACHE mayonnaise Adverse Reaction (Uncoded 12/19/17 10:50) VOMITING - Physical Exam Vital Signs: Vital Signs 12/19/17 12/19/17 12/19/17 10:35 10:39 11:17 Temperature 97.7 F 97.8 F Pulse Rate 70 70 70 Respiratory 20 18 Rate Blood Pressure 116/52 L 104/52 L O2 Sat by Pulse 99 97 Oximetry 12/19/17 12:11 Temperature 97.8 F Pulse Rate 70 Respiratory 18 Rate Blood Pressure 105/45 L O2 Sat by Pulse 98 Oximetry - Impression Impression: 77 yo female w/ recurrent symptomatic ascites here for ultrasound guided paracentesis - Date & Time Date: 12/19/17 Time: 11:15 Short Stay Discharge - Short Stay Discharge Admitting Diagnosis/Reason for Visit: ESRD Disposition: HOME/ ROUTINE Referrals: FAMILY PROVIDER,NO [Primary Care Provider] -
--- NOTE | 2017-12-19 12:25 | PCM.SURG1 ---
Surgeon's Initial Post Op Note - Surgeon's Notes Surgeon: Bandar Garcias MD Cashier And Waiter/Waitress: None Type of Anesthesia: Local Pre-Operative Diagnosis: ascites Operative Findings: ecchymosis rlq, palpable subq hematoma? large volume ascites Post-Operative Diagnosis: same Operation Performed: ultrasound guided paracentesis via LLQ puncture Specimen/Specimens Removed: 5.5 liters straw colored fluid removed Estimated Blood Loss: EBL {In ML}: 0 Date of Surgery/Procedure: 12/19/17 Time of Surgery/Procedure: 12:00
--- NOTE | 2017-12-19 12:33 | US ---
PROCEDURE: ULTRASOUND-GUIDED PARACENTESIS CLINICAL HISTORY: 77-year-old female with cirrhosis and recurrent symptomatic ascites is referred to Interventional Radiology for ultrasound-guided paracentesis. COMPARISON: Ultrasound-guided paracentesis performed 12/05/2017 PROCEDURE: 1. Ultrasound-guided paracentesis. PRE-PROCEDURE FINDINGS: 1. Large volume ascites. POST-PROCEDURE FINDINGS: 1. No evidence of post-procedural complication. INTERVENTIONAL RADIOLOGIST: Bandar Garcias M.D. (the attending was present for the entire procedure) ANESTHESIA: None. MEDICATION: Lidocaine 1% for local subcutaneous analgesia. COMPLICATIONS: None. PROCEDURE DESCRIPTION AND FINDINGS: The risks, benefits, alternatives and possible complications of the procedure were fully discussed; all questions were answered and informed consent was obtained. The patient was brought into the interventional suite and a pre-procedure 'time-out' was performed. The patient was placed on the fluoroscopy table in the supine position. Preliminary ultrasound images of the left lower quadrant demonstrate a large amount of ascites. The left lower quadrant was prepped and draped in the usual sterile fashion. Maximum sterile barrier precautions were maintained throughout the entire procedure. Following subcutaneous infiltration of lidocaine 1% for local analgesia, under real-time ultrasound guidance, a 5 Portuguese centesis catheter was advanced into the left lower quadrant with real-time visualization of needle entry. The ultrasound images were permanently recorded and submitted to the PACS. The inner stylet was removed and the catheter was attached to gentle vacuum suction. A total of 5.5 liters of straw-colored fluid were aspirated. The drainage catheter was then removed. A sterile adhesive bandage was placed over the puncture site. The patient tolerated the procedure well without immediate post-procedure complications and was transferred to the interventional radiology recovery area in stable condition. IMPRESSION: SUCCESSFUL ULTRASOUND-GUIDED THERAPEUTIC PARACENTESIS.
[2017-12-19 12:43] VITALS: RESP 20; O2SAT 100
[2017-12-19 15:36] VITALS: BP 114/54; PULSE 86; TEMP 97.9
== END 2017-12-19 14:20 | disposition home or self-care (01) ==
LOC: H.OPSURG 09:56
PROVIDERS: ATTEND Internal Medicine
DX: R18.8 Other ascites (principal); K74.60 Unspecified cirrhosis of liver; N18.6 End stage renal disease

== ENCOUNTER 2018-01-02 11:21 | Day surgery (SDC) | payer MEDICARE, MEDICAID ==
[2018-01-02 11:38] VITALS: BMI 23.7
[2018-01-02 13:28] VITALS: O2SAT 99
--- NOTE | 2018-01-02 13:40 | CP.SDSHP ---
Same Day Surgery H & P - History Proposed Procedure: US guided paracentesis Pre-Op Diagnosis: Ascites - Allergies Allergies: Allergies Penicillins Allergy (Verified 12/19/17 10:50) RASH morphine Adverse Reaction (Verified 12/19/17 10:50) HEADACHE mayonnaise Adverse Reaction (Uncoded 12/19/17 10:50) VOMITING - Physical Exam Vital Signs: Vital Signs 01/02/18 01/02/18 01/02/18 11:40 11:42 13:28 Temperature 97.8 F 98.0 F Pulse Rate 78 84 Pulse Rate [ 78 Radial] Respiratory 20 20 18 Rate Blood Pressure 115/51 L 123/63 O2 Sat by Pulse 96 99 Oximetry Mental Status: Alert & Oriented x3 Neuro: WNL Heart: WNL Lungs: WNL - {Optional Preform as Required} Abdomen: Other (Distended, non tender) - Impression Impression: Pt with refractory ascites referred for paracentesis. Plan US guided paracentesis. Pt. Evaluated Today:Candidate for Anesthesia & Procedure: No Short Stay Discharge - Short Stay Discharge Admitting Diagnosis/Reason for Visit: ASCITES Referrals: FAMILY PROVIDER,NO [Primary Care Provider] -
--- NOTE | 2018-01-02 13:41 | PCM.SURG1 ---
Surgeon's Initial Post Op Note - Surgeon's Notes Surgeon: Javier Woods MD Medical Record Transcriber: NONE Type of Anesthesia: Local Pre-Operative Diagnosis: AsciteS Operative Findings: US showed large amount of ascites Post-Operative Diagnosis: Ascites Operation Performed: US guided paracentesis Specimen/Specimens Removed: 6 liters of straw colored fluid Estimated Blood Loss: EBL {In ML}: 0 Blood Products Given: N/A Drains Used: No Drains Post-Op Condition: Fair Date of Surgery/Procedure: 01/02/18 Time of Surgery/Procedure: 14:55
--- NOTE | 2018-01-02 14:10 | US ---
Date of Procedure: 01/02/2018 PROCEDURE: Ultrasound-guided paracentesis, CPT 24379 Medications: 7 cc 1% Lidocaine HISTORY: Ascites, abdominal pain TECHNIQUE: Following informed consent , the patient was placed supine on the stretcher and the site was marked. A limited abdominal ultrasound was performed that showed a large amount of intra-abdominal fluid. Procedural time out was called and the Pt's abdomen was marked and prepped and draped in the usual sterile fashion. Ultrasound-guided large volume paracentesis performed. A total of 6 liters of straw colored fluid was removed without complication. IMPRESSION: Ultrasound-guided large volume paracentesis.
[2018-01-02 14:41] VITALS: BP 114/43; PULSE 72; RESP 20; TEMP 97.8
== END 2018-01-02 15:30 | disposition home or self-care (01) ==
LOC: H.OPSURG 11:21
PROVIDERS: ATTEND Internal Medicine
DX: R18.8 Other ascites (principal); Z88.0 Allergy status to penicillin
CPT/HCPCS: 49083; C1729

== ENCOUNTER 2018-01-09 01:38 | Inpatient (IN) | payer MEDICARE, MEDICAID ==
--- NOTE | 2018-01-09 03:21 | ED PDOC ---
HPI: Abdomen Time Seen by Provider: 01/09/18 01:53 Chief Complaint (Nursing): Abdominal Pain Chief Complaint (Provider): Abdominal Pain and Vomiting History Per: Patient History/Exam Limitations: no limitations Onset/Duration Of Symptoms: Days (1 day ago) Current Symptoms Are (Timing): Still Present Additional Complaint(s): 77 yo female with End Stage Renal Disease and ascites, brought in by EMS, presents to the ED complaining of diffuse abdominal pain and non-bilious, non- bloody vomiting, onset of 1 day ago. She reports having to go obtain dialysis treatments every Monday, Monday, and Monday, however she missed her treatment today because of the abdominal pain. As a result, she also has to get paracentesis procedures performed 2x a month and last week she had one done where fluid was removed. She denies any chest pain, shortness of breath, or fever. PMD: Meme Snyder; Primary Montessori Teacher: Andres Gutiérrez Past Medical History Reviewed: Historical Data, Nursing Documentation, Vital Signs Vital Signs: Last Vital Signs Temp 97.4 F L 01/09/18 01:48 Pulse 95 H 01/09/18 05:54 Resp 15 01/09/18 05:54 BP 97/58 L 01/09/18 05:54 Pulse Ox 95 01/09/18 06:07 - Medical History PMH: Anemia, Anxiety, Arthritis, Atrial Fibrillation, Diverticulitis, HTN, Peripheral Edema, Pneumonia, End Stage Renal Disease, Chronic Kidney Disease Denies: Fractures, HIV, Kidney Stones - Surgical History Surgical History: Endoscopy, Pacemaker (left femoral) - Family History Family History: States: Unknown Family Hx - Social History Current smoker - smoking cessation education provided: No Ex-Smoker (has not smoked in the last 12 months): No Alcohol: None Drugs: Denies - Home Medications Home Medications: Ambulatory Orders Medication Instructions Recorded Midodrine [Proamatine] 10 mg PO MWF 11/18/14 Sevelamer Carbonate [Renvela] 800 mg PO TID 11/18/14 Timolol 0.5% Ophth [Timoptic 0.5% 1 drop EACHEYE DAILY 03/26/15 Ophth Soln] Clorazepate Dipotassium 3.75 mg PO HS 01/12/16 [Tranxene-T] Digoxin [Lanoxin] 0.25 mg PO MWF 01/12/16 Prednisone 2.5 mg PO MOFR 01/12/16 Metoprolol Tartrate [Lopressor] 25 mg PO DAILY 06/30/16 Apixaban [Eliquis] 2.5 mg PO Q12H 10/27/16 B Complex W-C No.20/Folic Acid 1 cap PO DAILY 09/11/17 [Virt-Caps Softgel] Cinacalcet [Sensipar] 30 mg PO DAILY 09/11/17 Esomeprazole Magnesium [Nexium] 40 mg PO DAILY 09/11/17 Ondansetron ODT [Zofran ODT] 4 mg PO DAILY 01/09/18 Ranitidine HCl [Acid Integration Developer 150] 150 mg PO BID 01/09/18 - Allergies Allergies/Adverse Reactions: Allergies Allergy/AdvReac Type Severity Reaction Status Date / Time Penicillins Allergy RASH Verified 01/09/18 01:48 morphine AdvReac HEADACHE Verified 01/09/18 01:48 mayonnaise AdvReac VOMITING Uncoded 01/09/18 01:48 Review of Systems ROS Statement: Except As Marked, All Systems Reviewed And Found Negative Constitutional: Negative for: Fever Cardiovascular: Negative for: Chest Pain Respiratory: Negative for: Shortness of Breath Gastrointestinal: Positive for: Vomiting, Abdominal Pain. Negative for: Hematemesis Physical Exam - Reviewed Nursing Documentation Reviewed: Yes Vital Signs Reviewed: Yes - Physical Exam Appears: Positive for: Uncomfortable Head Exam: Positive for: ATRAUMATIC, NORMAL INSPECTION, NORMOCEPHALIC Skin: Positive for: Normal Color, Warm, DRY Eye Exam: Positive for: EOMI, Normal appearance, PERRL ENT: Positive for: Normal ENT Inspection Neck: Positive for: Normal, Painless ROM Cardiovascular/Chest: Positive for: Regular Rate, Rhythm. Negative for: Murmur Respiratory: Positive for: Normal Breath Sounds. Negative for: Respiratory Distress Gastrointestinal/Abdominal: Positive for: Soft, Tenderness (diffusely tender), Distended, Asicites Back: Positive for: Normal Inspection Extremity: Positive for: Normal ROM. Negative for: Pedal Edema, Deformity Neurologic/Psych: Positive for: Alert, Oriented. Negative for: Motor/Sensory Deficits - Laboratory Results Result Diagrams: 01/09/18 03:30 01/09/18 03:30 - ECG O2 Sat by Pulse Oximetry: 95 (RA) Pulse Ox Interpretation: Normal Medical Decision Making Medical Decision Making: Time: --02:23 Impression: --abdominal pain, ascites, and missed dialysis Differential: --Worsening ascites, Spontaneous bacterial peritonitis (SBP), hyperkalemia due to missed dialysis, volume overload, rule out sepsis Plan: --VBG --CT Abd & pelvis IV contrast --ECG --Labs -Toradol 30 mg IVp ---blood culture --iv insertion Reassess --Patient will require consultation with the [facility] rail switch operator, Dr. Gutiérrez. --patient is likely to be admitted for Paracentesis, emergent dialysis and IV antibiotics -06:00 patient case discussed with Dr. Kiran to admit the patient under observation telemetry for worsened ascites, SBP, Hyperkalemia, Provider will consult Dr. Gutiérrez for Dialysis. 06:[address] Gutiérrez, Dr. Gutiérrez will arrange is going to speak to the dialysis nurse to arrange for dialysis treatment this morning stat. Scribe Attestation: Documented by Dewey Irwin acting as a scribe for Gaurav Jenkins MD. Provider Attestation: All medical record entries made by the Scribe were at my direction and personally dictated by me. I have reviewed the chart and agree that the record accurately reflects my personal performance of the history, physical exam, medical decision making, and the department course for this patient. I have also personally directed, reviewed, and agree with the discharge instructions and disposition Disposition - Clinical Impression Clinical Impression: Hyperkalemia, ESRD (end stage renal disease) on dialysis, Abdominal pain, Ascites - Patient ED Disposition Is Patient to be Admitted: Yes Discussed With : David Kiran Doctor Will See Patient In The: Hospital - Disposition Disposition Time: 06:00 Condition: FAIR - Pt Status Changed To: Hospital Disposition Of: Observation - POA Present On Arrival: None
[2018-01-09 03:57] LABS: BASO % 0.7 % (0.0-2.0); EOS % 0.4 % (0.0-4.0); HEMOGLOBIN 14.2 g/dL (12.0-16.0); LYMPH # 0.3 K/uL (1.0-4.3); LYMPH % 8.6 % (20.0-40.0); MEAN CELL VOLUME 95.9 fl (81.0-99.0); MEAN CORPUSCULAR HEMOGLOBIN 31.7 pg (27.0-31.0); MEAN CORPUSCULAR HGB CONC 33.1 g/dL (33.0-37.0); MONO # 0.2 K/uL (0.0-0.8); MONO % 5.7 % (0.0-10.0); NEUT # 3.2 K/uL (1.8-7.0); NEUT % 84.6 % (50.0-75.0); NRBC % 0.1 % (0.0-0.0); PLATELET COUNT 114 K/uL (130-400); RBC 4.48 Mil/uL (3.80-5.20); RED CELL DISTRIBUTION WIDTH 16.3 % (11.5-14.5); WHITE BLOOD COUNT 3.8 K/uL (4.8-10.8)
[2018-01-09 04:05] LABS: VENOUS BLOOD GAS BASE EXCESS 2.8 mmol/L (0.0-2.0); VENOUS BLOOD GAS PCO2 67 mmHg (40-60); VENOUS BLOOD GAS PO2 18 mm/Hg (30-55); VENOUS BLOOD PH 7.28 (7.32-7.43)
[2018-01-09 04:08] LABS: ALB/GLOB RATIO 0.9 (1.0-2.1); ALBUMIN 3.4 g/dL (3.5-5.0); CALCIUM 8.1 mg/dL (8.4-10.2)
[2018-01-09] MEDS ORDERED: Insulin Regular 100 units/ml IV STA (04:35)
[2018-01-09] MEDS ORDERED: Sod Polystyrene Sulf 15 gm/60 ml Susp PO ONE (04:36)
[2018-01-09] MEDS ORDERED: Albuterol 0.083% Inhal Sol (2.5 mg/3 mL) UD INH STA (04:36)
[2018-01-09] MEDS ORDERED: Dextrose 50% SYRINGE Inj (50 ml) IVP ONE (04:36)
[2018-01-09] MEDS ORDERED: Albuterol 0.083% Inhal Sol (2.5 mg/3 mL) UD ONE (04:49)
[2018-01-09] MEDS ORDERED: Dextrose 50% SYRINGE Inj (50 ml) ONE (04:50)
[2018-01-09] MEDS ORDERED: Sod Polystyrene Sulf 15 gm/60 ml Susp ONE (04:50)
[2018-01-09] MEDS ORDERED: Insulin Regular 100 units/ml ONE (04:50)
[2018-01-09 05:33] LABS: LYMPHOCYTE 10 % (20-50); MONOCYTE 7 % (0-10); NEUTROPHIL 83 % (42-75); TOTAL CELLS COUNTED 100
[2018-01-09 05:34] LABS: ANISOCYTOSIS SLIGHT; PLATELET ESTIMATE MARKEDLY DECREASED (NORMAL); TEARDROP CELLS SLIGHT
[2018-01-09 05:35] LABS: BURR CELLS MODERATE; LARGE PLATELETS PRESENT
[2018-01-09 05:36] LABS: HYPOCHROMIC SLIGHT
--- NOTE | 2018-01-09 06:02 | CP.PCM.HP ---
History of Present Illness - History of Present Illness History of Present Illness: CC: abdominal pain, hyper K/missed HD HPI: This is a 77 y/o female with ESRD on M/W/F HD, liver disease with cysts(?) with chronic/recurrent ascites requiring regular drainage, A fib, and HTN among other issues who brought to the ED today with c/o generalize abd pain and nb/nb vomiting; she has also had re-accumulation of her ascites. Symptoms started about 1 day ago, and because of the pain she missed HD. Per daughter she gets paracentesis done 2x a month, the last time was mid-last week. Patient denies any f/c. Denies CP, palpitations, SOB. History mostly via daughter. PCP: Lillian; Renal: Brock ROS: 14 systems reviewed, negative other than HPI MHx: A fib, anxiety, HTN, ESRD on HD, chronic LE edema, ?liver disease with ascites SHx: Endoscopy, Pacemaker, RUE HD fistula Allergies: PCN, morphine Family Hx: Reviewed, no relevant findings Social Hx: Lives with family, no tobacco, no EtOH Surrogate: , info on chart Present on Admission - Present on Admission Any Indicators Present on Admission: No Past Patient History - Infectious Disease Hx of Infectious Diseases: None - Tetanus Immunizations Tetanus Immunization: Unknown - Past Medical History & Family History Past Medical History?: Yes - Past Social History Alcohol: None Drugs: Denies - CARDIAC Hx Atrial Fibrillation: Yes Hx Hypertension: Yes Hx Pacemaker: Yes (left femoral) Hx Peripheral Edema: Yes - PULMONARY Hx Pneumonia: Yes - NEUROLOGICAL Hx Neurological Disorder: No - HEENT Hx Glaucoma: Yes - RENAL Hx Chronic Kidney Disease: Yes Hx Kidney Stones: No - ENDOCRINE/METABOLIC Hx Endocrine Disorders: No - HEMATOLOGICAL/ONCOLOGICAL Hx Anemia: Yes Hx Human Immunodeficiency Virus (HIV): No - INTEGUMENTARY Hx Dermatological Problems: No - MUSCULOSKELETAL/RHEUMATOLOGICAL Hx Arthritis: Yes Hx Fractures: No - GASTROINTESTINAL Hx Diverticulitis: Yes - GENITOURINARY/GYNECOLOGICAL Hx Genitourinary Disorders: No - PSYCHIATRIC Hx Anxiety: Yes - SURGICAL HISTORY Hx Surgeries: Yes Other/Comment: PARACENTESIS SERIES. Hip replacement - ANESTHESIA Hx Anesthesia: Yes Hx Anesthesia Reactions: Yes (HARD TO WAKE UP) Hx Malignant Hyperthermia: No Meds Allergies/Adverse Reactions: Allergies Allergy/AdvReac Type Severity Reaction Status Date / Time Penicillins Allergy RASH Verified 04/03/18 01:48 morphine AdvReac HEADACHE Verified 01/09/18 01:48 mayonnaise AdvReac VOMITING Uncoded 01/09/18 01:48 Physical Exam - Constitutional Appears: No Acute Distress - Head Exam Head Exam: ATRAUMATIC, NORMOCEPHALIC - Eye Exam Eye Exam: EOMI, PERRL - ENT Exam ENT Exam: Mucous Membranes Moist - Neck Exam Neck exam: Positive for: Full Rom - Respiratory Exam Respiratory Exam: Clear to Auscultation Bilateral, NORMAL BREATHING PATTERN - Cardiovascular Exam Cardiovascular Exam: Irregular Rhythm, +S1, +S2 - GI/Abdominal Exam GI & Abdominal Exam: Normal Bowel Sounds, Soft - Extremities Exam Extremities exam: Positive for: full ROM, pedal edema Additional comments: RUE AV fistula - Neurological Exam Neurological exam: Alert, CN II-XII Intact, Oriented x3 - Psychiatric Exam Psychiatric exam: Normal Affect, Normal Mood - Skin Skin Exam: Dry, Warm Results - Vital Signs Recent Vital Signs: Last Vital Signs Temp 97.4 F L 01/09/18 01:48 Pulse 95 H 01/09/18 05:54 Resp 15 01/09/18 05:54 BP 97/58 L 01/09/18 05:54 Pulse Ox 95 01/09/18 06:02 - Labs Result Diagrams: 01/09/18 03:30 01/09/18 03:30 Labs: Laboratory Results - last 24 hr 01/09/18 01/09/18 01/09/18 03:30 03:30 04:01 WBC 3.8 L RBC 4.48 Hgb 14.2 D Hct 42.9 MCV 95.9 D MCH 31.7 H MCHC 33.1 RDW 16.3 H Plt Count 114 L MPV 11.0 Neut % (Auto) 84.6 H Lymph % (Auto) 8.6 L [place] % (Auto) 5.7 Eos % (Auto) 0.4 Baso % (Auto) 0.7 Neut # (Auto) 3.2 Lymph # (Auto) 0.3 L [place] # (Auto) 0.2 Eos # (Auto) 0.0 Baso # (Auto) 0.0 Neutrophils % (Manual) 83 H Lymphocytes % (Manual) 10 L Monocytes % (Manual) 7 Platelet Estimate Markedly decreased L Large Platelets Present Hypochromasia (manual) Slight Anisocytosis (manual) Slight Tear Drop Cells Slight [place] Cells Moderate pO2 18 L VBG pH 7.28 L VBG pCO2 67 H* VBG HCO3 25.0 VBG Total CO2 33.6 H VBG O2 Sat (Calc) 25.7 L VBG Base Excess 2.8 H VBG Potassium 7.9 H* Glucose 81 Lactate 2.4 H FiO2 21.0 Crit Value Called To Dr tinoco Crit Value Called By 6075 Crit Value Read Back Y Blood Gas Notified Time 405 Sodium 140 133.0 Potassium 7.8 H* D Chloride 104 103.0 Carbon Dioxide 25 Anion Gap 19 BUN 117 H* D Creatinine 8.2 H* D Est GFR ( Amer) 6 Est GFR (Non-Af Amer) 5 Random Glucose 83 Calcium 8.1 L Total Bilirubin 2.4 H AST 90 H D ALT 21 Alkaline Phosphatase 139 H D Total Protein 7.2 Albumin 3.4 L D Globulin 3.8 Albumin/Globulin Ratio 0.9 L Venous Blood Potassium 7.9 H* - EKG Data EKG Interpreted by: Myself Rate: Normal - EKG Data EKG comments: EKG shows a fib, controlled; TW abnormality, but T waves are not peaked - Imaging and Cardiology CT scan - abdomen Status: Image reviewed by me (Report pending, but ascites noted), Pending Assessment & Plan (1) Hyperkalemia Assessment and Plan: 77 y/o female with multiple medical conditions p/w hyper-K in setting of missed HD, and with reaccumulated ascites. 1) ESRD/HD with hyper-K -Admit to telemetry -Patient received hyper-K cocktail in ED -Nephrology consulted, plan for urgent HD -Continue renal medications (sevelamer, etc.; patient also on midodrine for low BP due to HD) 2) Ascites/abdominal pain -- patient appears to have reaccumulated ascites in the past week; patient does not show overt signs of infection -hold Eliquis this AM in prep for U/S guided thoracentesis -U/S guided thoracentesis this AM after HD -If patient febrile/decompensates, consider starting abx 3) A fib -- stable, continue digoxin after HD; eliquis after paracentesis; cont metoprolol for now 4) DVT PPx -- SCDs now, will resume eliquis after procedure Status: Acute (2) ESRD (end stage renal disease) on dialysis Status: Acute (3) Ascites Status: Acute (4) Abdominal pain Status: Acute Priority: High (5) DVT prophylaxis Status: Acute
--- NOTE | 2018-01-09 08:22 | RAD ---
HISTORY: ESRD COMPARISON: 09/11/2017. FINDINGS: There is stable appearance of right subclavian and axillary endovascular stents. LUNGS: The lungs are well inflated. There is mild pulmonary venous congestion. There are fibrotic changes in the right mid lung. There is interval near complete resolution of right lower lobe airspace disease. There is minimal bibasilar atelectasis. PLEURA: No significant pleural effusion identified, no pneumothorax apparent. Right pleural thickening. CARDIOVASCULAR: There is mild cardiomegaly. There is unfolding of the aorta. Atherosclerotic aortic arch calcifications are present. OSSEOUS STRUCTURES: No significant abnormalities. VISUALIZED UPPER ABDOMEN: Normal. OTHER FINDINGS: None. IMPRESSION: Mild pulmonary venous congestion. No active pulmonary disease.
[2018-01-09] MEDS: Pantoprazole 40 mg EC Tab PO SCH (08:58)
[2018-01-09] MEDS ORDERED: Albumin Human 25% (12.5 gm/50 ml) IV ONE ×2 (09:00→14:30)
[2018-01-09] MEDS ORDERED: Sodium Chloride 0.9% 500 ML IV ONE ×2 (09:00→09:24)
--- NOTE | 2018-01-09 09:02 | CP.PCM.CON ---
History of Present Illness - History of Present Illness History of Present Illness: Patient is a 77 years of age female known to me with end stage renal disease on maintenance hemodialysis 3 times a week TTS and sometime 4 times a week. Patient came to the emergency room complaining of abdominal pain and she vomited couple of time started yesterday. Patient did have abdominal paracentesis about a week ago. Prior to that she has been having abdominal paracentesis for ascites which has been going on for almost every month. Patient has a chronic hypotension on dialysis with difficulty to dialyze and remove fluid. For which patient receiving medication midodrine. Patient has multiple admission in the past related to multitude of medical problem in the past with a history of multitude of medical issues. MHx: A fib, anxiety, HTN, ESRD on HD, chronic LE edema, ?liver disease with ascites SHx: Endoscopy, Pacemaker, RUE HD fistula Allergies: PCN, morphine Family Hx: Reviewed, no relevant findings Social Hx: Lives with family, no tobacco, no EtOH Review of Systems - Constitutional Constitutional: Anorexia, Malaise. absent: Chills - EENT Nose/Mouth/Throat: absent: Epistaxis, Nasal Congestion - Breasts Breasts: As Per HPI - Cardiovascular Cardiovascular: Dyspnea, Edema, Leg Edema, Orthopnea. absent: Chest Pain - Respiratory Respiratory: Dyspnea, Chest Congestion. absent: Cough, Hemoptysis - Gastrointestinal Gastrointestinal: Abdominal Pain, Bloating, Vomiting. absent: Coffee Ground Emesis - Musculoskeletal Musculoskeletal: Muscle Weakness. absent: Abnormal Gait, Back Pain, Numbness - Neurological Neurological: Abnormal Gait. absent: Abnormal Movements, Numbness, Focal Weakness - Hematologic/Lymphatic Hematologic: absent: Easy Bleeding Past Patient History - Infectious Disease Hx of Infectious Diseases: None - Tetanus Immunizations Tetanus Immunization: Unknown - Past Medical History & Family History Past Medical History?: Yes - Past Social History Alcohol: None Drugs: Denies - CARDIAC Hx Atrial Fibrillation: Yes Hx Hypertension: Yes Hx Pacemaker: Yes (left femoral) Hx Peripheral Edema: Yes - PULMONARY Hx Pneumonia: Yes - NEUROLOGICAL Hx Neurological Disorder: No - HEENT Hx Glaucoma: Yes - RENAL Hx Chronic Kidney Disease: Yes Hx Kidney Stones: No - ENDOCRINE/METABOLIC Hx Endocrine Disorders: No - HEMATOLOGICAL/ONCOLOGICAL Hx Anemia: Yes Hx Human Immunodeficiency Virus (HIV): No - INTEGUMENTARY Hx Dermatological Problems: No - MUSCULOSKELETAL/RHEUMATOLOGICAL Hx Arthritis: Yes Hx Fractures: No - GASTROINTESTINAL Hx Diverticulitis: Yes - GENITOURINARY/GYNECOLOGICAL Hx Genitourinary Disorders: No - PSYCHIATRIC Hx Anxiety: Yes - SURGICAL HISTORY Hx Surgeries: Yes Other/Comment: PARACENTESIS SERIES. Hip replacement - ANESTHESIA Hx Anesthesia: Yes Hx Anesthesia Reactions: Yes (HARD TO WAKE UP) Hx Malignant Hyperthermia: No Meds Allergies/Adverse Reactions: Allergies Allergy/AdvReac Type Severity Reaction Status Date / Time Penicillins Allergy RASH Verified 01/09/18 01:48 morphine AdvReac HEADACHE Verified 01/09/18 01:48 mayonnaise AdvReac VOMITING Uncoded 01/09/18 01:48 - Medications Medications: Current Medications Albumin Human (Albumin Human 25% (12.5 Gm/50 Ml)) 25 gm IV ONCE ONE Stop: 01/09/18 09:01 Cinacalcet (Sensipar) 30 mg PO DAILY REPLACED BY [facility] Clorazepate Dipotassium (Tranxene-T) 3.75 mg PO HS REPLACED BY [facility] Piperacillin Sod/Tazobactam (Sod 2.25 gm/ Sodium Chloride) 100 mls @ 100 mls/ hr IVPB Q12 JOAQUIN PRN Reason: Protocol Metoprolol Tartrate (Lopressor) 25 mg PO DAILY REPLACED BY [facility] Midodrine (Proamatine) 10 mg PO DAILY REPLACED BY [facility] Last Admin: 01/09/18 08:57 Dose: 10 mg Multivitamins/Minerals (Therapeutic-M Tab) 1 tab PO DAILY REPLACED BY [facility] Ondansetron HCl (Zofran Inj) 4 mg IVP Q6 PRN PRN Reason: Nausea/Vomiting Pantoprazole Sodium (Protonix Ec Tab) 40 mg PO DAILY REPLACED BY [facility] Last Admin: 01/09/18 08:58 Dose: 40 mg Sevelamer HCl (Renagel) 800 mg PO TID REPLACED BY [facility] Timolol Maleate (Timoptic 0.5% Ophth Soln) 1 drop OD DAILY REPLACED BY [facility] Last Admin: 01/09/18 08:58 Dose: 1 drop Physical Exam - Constitutional Appears: No Acute Distress - Eye Exam Eye Exam: Conjunctival injection - ENT Exam ENT Exam: Mucous Membranes Moist - Neck Exam Neck exam: Negative for: Lymphadenopathy - Respiratory Exam Respiratory Exam: Rales, Rhonchi. absent: Chest Wall Tenderness - Cardiovascular Exam Cardiovascular Exam: Irregular Rhythm. absent: Gallop, Rubs - GI/Abdominal Exam GI & Abdominal Exam: Distended, Firm, Guarding, Normal Bowel Sounds, Tenderness - Extremities Exam Extremities exam: Negative for: calf tenderness - Back Exam Back exam: absent: CVA tenderness (L), CVA tenderness (R) - Neurological Exam Neurological exam: Altered - Psychiatric Exam Psychiatric exam: Anxious Results - Vital Signs Recent Vital Signs: Last Vital Signs Temp 97.4 F L 01/09/18 01:48 Pulse 95 H 01/09/18 05:54 Resp 15 01/09/18 05:54 BP 97/58 L 01/09/18 05:54 Pulse Ox 95 01/09/18 06:08 - Labs Result Diagrams: 01/09/18 03:30 01/09/18 03:30 Labs: Laboratory Results - last 24 hr 01/09/18 01/09/18 01/09/18 03:30 03:30 04:01 WBC 3.8 L RBC 4.48 Hgb 14.2 D Hct 42.9 MCV 95.9 D MCH 31.7 H MCHC 33.1 RDW 16.3 H Plt Count 114 L MPV 11.0 Neut % (Auto) 84.6 H Lymph % (Auto) 8.6 L [place] % (Auto) 5.7 Eos % (Auto) 0.4 Baso % (Auto) 0.7 Neut # (Auto) 3.2 Lymph # (Auto) 0.3 L [place] # (Auto) 0.2 Eos # (Auto) 0.0 Baso # (Auto) 0.0 Neutrophils % (Manual) 83 H Lymphocytes % (Manual) 10 L Monocytes % (Manual) 7 Platelet Estimate Markedly decreased L Large Platelets Present Hypochromasia (manual) Slight Anisocytosis (manual) Slight Tear Drop Cells Slight Angelique Cells Moderate pO2 18 L VBG pH 7.28 L VBG pCO2 67 H* VBG HCO3 25.0 VBG Total CO2 33.6 H VBG O2 Sat (Calc) 25.7 L VBG Base Excess 2.8 H VBG Potassium 7.9 H* Glucose 81 Lactate 2.4 H FiO2 21.0 Crit Value Called To Dr tinoco Crit [place] [id number] Crit Value Read Back Y Blood Gas Notified Time 405 Sodium 140 133.0 Potassium 7.8 H* D Chloride 104 103.0 Carbon Dioxide 25 Anion Gap 19 BUN 117 H* D Creatinine 8.2 H* D Est GFR ( Amer) 6 Est GFR (Non-Af Amer) 5 Random Glucose 83 Calcium 8.1 L Total Bilirubin 2.4 H AST 90 H D ALT 21 Alkaline Phosphatase 139 H D Total Protein 7.2 Albumin 3.4 L D Globulin 3.8 Albumin/Globulin Ratio 0.9 L Venous Blood Potassium 7.9 H* Assessment & Plan (1) Abdominal pain Status: Acute Priority: High (2) Ascites Status: Acute (3) ESRD (end stage renal disease) on dialysis Assessment and Plan: Patient with end stage renal disease admitted with severe hyperkalemia. Waiting to have dialysis emergency right now. Patient was given medications in the emergency room for hyperkalemia and for pain. #2 patient admitted with abdominal pain and diffuse tenderness and vomiting consistent what appeared to be peritonitis, patient needs therapeutic paracentesis however she need emergency dialysis first. Therefore I recommend strongly to give empiric antibiotics treatment for the peritonitis. #3 patient is chronically hypotensive we will give midodrine also we will give albumin on dialysis Other issue patient has chronic atrial fibrillation as well and significant ascites. Status: Acute
--- NOTE | 2018-01-09 10:19 | CP.PCM.PN ---
Subjective - Date & Time of Evaluation Date of Evaluation: 01/09/18 Time of Evaluation: 10:17 - Subjective Subjective: Dialysis note Patient now in intensive care unit with blood pressure 80/60. Daughter and the bedside Patient was given pain medication for abdominal pain. Hemodialysis started via AV shunt. Objective - Vital Signs/Intake and Output Vital Signs (last 24 hours): Temp Pulse Resp BP Pulse Ox 97.9 F 79 18 84/36 L 99 01/09/18 09:33 01/09/18 09:33 01/09/18 09:33 01/09/18 09:33 01/09/18 09:33 - Medications Medications: Current Medications Cinacalcet (Sensipar) 30 mg PO DAILY [facility] Clorazepate Dipotassium (Tranxene-T) 3.75 mg PO HS [facility] Sodium Chloride (Sodium Chloride 0.9%) 500 mls @ 500 mls/hr IV .Q1H ONE Stop: 01/09/18 10:23 Last Admin: 01/09/18 09:27 Dose: 500 mls/hr Vancomycin HCl 1 gm/ Sodium (Chloride) 250 mls @ 166.667 mls/hr IVPB ONCE ONE PRN Reason: Protocol Stop: 01/09/18 11:29 Gentamicin Sulfate 120 mg/ (Sodium Chloride) 103 mls @ 100 mls/hr IVPB ONCE ONE PRN Reason: Protocol Stop: 01/09/18 11:01 Metoprolol Tartrate (Lopressor) 25 mg PO DAILY [facility] Midodrine (Proamatine) 10 mg PO DAILY [facility] Last Admin: 01/09/18 08:57 Dose: 10 mg Multivitamins/Minerals (Therapeutic-M Tab) 1 tab PO DAILY [facility] Ondansetron HCl (Zofran Inj) 4 mg IVP Q6 PRN PRN Reason: Nausea/Vomiting Pantoprazole Sodium (Protonix Ec Tab) 40 mg PO DAILY [facility] Last Admin: 01/09/18 08:58 Dose: 40 mg Sevelamer HCl (Renagel) 800 mg PO TID [facility] Timolol Maleate (Timoptic 0.5% Ophth Soln) 1 drop OD DAILY [facility] Last Admin: 01/09/18 08:58 Dose: 1 drop - Labs Labs: 01/09/18 03:30 01/09/18 03:30 - Constitutional Appears: No Acute Distress - ENT Exam ENT Exam: Mucous Membranes Moist - Respiratory Exam Respiratory Exam: Rhonchi, NORMAL BREATHING PATTERN. absent: Chest Wall Tenderness - Cardiovascular Exam Cardiovascular Exam: Irregular Rhythm. absent: Gallop, Rubs - GI/Abdominal Exam GI & Abdominal Exam: Firm, Guarding, Tenderness - Back Exam Back Exam: absent: CVA tenderness (L) - Neurological Exam Neurological Exam: Alert - Skin Skin Exam: absent: Cyanosis Assessment and Plan (1) Abdominal pain Status: Acute (2) Ascites Status: Acute (3) ESRD (end stage renal disease) on dialysis Assessment & Plan: End stage renal disease receiving dialysis right now. Hypotensive given midodrine and albumin running right now. If blood pressure is still low we will give dopamine as instructed to ICU team. Hyperkalemia given 1 mEq potassium bath Sodium bath 138 Bicarbonate 34 Ultrafiltration of about 1500 mL as tolerated. Patient is frail peritonitis Empiric antibiotics vancomycin and gentamicin Status: Acute
--- NOTE | 2018-01-09 11:18 | CT ---
PROCEDURE: CT Abdomen and Pelvis without intravenous contrast HISTORY: abdominal pain COMPARISON: 09/11/2017. TECHNIQUE: CT scan of the abdomen and pelvis was performed without administration of intravenous contrast. Oral contrast was not administered. Coronal and sagittal reformatted images were obtained. Radiation dose: Total exam DLP = Total exam DLP = 498.72 mGy-cm. This CT exam was performed using one or more of the following dose reduction techniques: Automated exposure control, adjustment of the mA and/or kV according to patient size, and/or use of iterative reconstruction technique. FINDINGS: LOWER THORAX: Small right pleural effusion and subsegmental atelectasis in the right lung base. There are stable nodules in the right lower lobe, the largest measures 8 mm. There is also stable right pleural calcification. LIVER: The liver is small in size and has a cirrhotic appearance. There are stable scattered calcifications in the liver. GALLBLADDER AND BILE DUCTS: Cholelithiasis. PANCREAS: Normal in size. No gross lesion or ductal dilatation. SPLEEN: Normal in size. ADRENALS: No discrete nodule. KIDNEYS AND URETERS: There are markedly enlarged polycystic kidneys. VASCULATURE: Atherosclerotic calcifications. No aortic aneurysm. BOWEL: The small bowel loops are normal in caliber. The colon is decompressed. No obstruction. No gross mural thickening. APPENDIX: Normal appendix. PERITONEUM: There is large abdominal and pelvic ascites. No free air. LYMPH NODES: No enlarged lymph nodes. BLADDER: Unremarkable. REPRODUCTIVE: Unremarkable. BONES: No acute fracture. Status post left hip arthroplasty. OTHER FINDINGS: None. IMPRESSION: 1. Cirrhosis of liver, large abdominal and pelvic ascites. 2. Small loculated right pleural effusion with pleural calcifications. 3. Stable noncalcified nodules in the right lower lobe, the largest measures 8 mm. In a low risk patient follow-up in 12 month interval and in a high-risk patient follow-up in six-month interval is recommended to assess stability 4. Cholelithiasis. 5. Polycystic kidneys. A preliminary report was provided by [facility].
[2018-01-09] MEDS ORDERED: SODIUM CHLORIDE 0.9% IVPB ONE (11:30)
[2018-01-09] MEDS ORDERED: GENTAMICIN IVPB ONE (11:30)
[2018-01-09] MEDS ORDERED: DOPamine 400mg/250ml D5W 400 MG/250 ML BAG IV ONE (11:30)
[2018-01-09 11:34] VITALS: BMI 20.5
--- NOTE | 2018-01-09 11:39 | CARD ---
APPROVED REPORT EKG Measurement Heart [id number] <Conclusion> Atrial Fibrillation Septal infarct, age undetermined Abnormal ECG
[2018-01-09] MEDS: Multivitamin With Minerals Tab PO SCH (12:30)
[2018-01-09 14:22] LABS: INR 1.1 (0.9-1.2); PROTHROMBIN TIME 12.6 Seconds (9.8-13.1)
--- NOTE | 2018-01-09 15:14 | CP.PCM.CON ---
History of Present Illness - History of Present Illness History of Present Illness: General Surgery Consult Note for Dr Robledo Reason for consult: Central line placement 77 F with PMH that includes ESRD (HD MWF), liver cirrhosis, chronic/recurrent ascites requiring regular drainage, Atrial fibrillation, and HTN who was admitted for abdominal pain and nausea/vomiting. Patient had dialysis today where 500cc of fluid was removed. Afterwards, patient developed hypotension/ shock. General Surgery was consulted for placement of central line so the patient could be started on levophed. Admits to abdominal pain. 12 point ROS performed and found to be negative otherwise. PMD: Lillian Renal: Gutiérrez PMH: ESRD (HD MWF), liver cirrhosis, chronic/recurrent ascites requiring regular drainage, Atrial fibrillation, HTN PSH: Endoscopy, Pacemaker, RUE HD fistula Allergies: PCN, morphine Family Hx: non-contributory Social: Lives with family, denies tobacco/EtOH/illicit drug use Review of Systems - Review of Systems All systems: reviewed and no additional remarkable complaints except (as per HPI ) Past Patient History - Infectious Disease Hx of Infectious Diseases: None - Tetanus Immunizations Tetanus Immunization: Unknown - Past Medical History & Family History Past Medical History?: Yes - Past Social History Alcohol: None Drugs: Denies - CARDIAC Hx Atrial Fibrillation: Yes Hx Hypertension: Yes Hx Pacemaker: Yes (left femoral) Hx Peripheral Edema: Yes - PULMONARY Hx Pneumonia: Yes - NEUROLOGICAL Hx Neurological Disorder: No - HEENT Hx Glaucoma: Yes - RENAL Hx Chronic Kidney Disease: Yes - ENDOCRINE/METABOLIC Hx Endocrine Disorders: No - HEMATOLOGICAL/ONCOLOGICAL Hx Anemia: Yes Hx Human Immunodeficiency Virus (HIV): No - INTEGUMENTARY Hx Dermatological Problems: No - MUSCULOSKELETAL/RHEUMATOLOGICAL Hx Arthritis: Yes Hx Fractures: No - GASTROINTESTINAL Hx Diverticulitis: Yes - GENITOURINARY/GYNECOLOGICAL Hx Genitourinary Disorders: No - PSYCHIATRIC Hx Anxiety: Yes - SURGICAL HISTORY Hx Surgeries: Yes Other/Comment: PARACENTESIS SERIES. Hip replacement - ANESTHESIA Hx Anesthesia: Yes Hx Anesthesia Reactions: Yes (HARD TO WAKE UP) Hx Malignant Hyperthermia: No Meds Allergies/Adverse Reactions: Allergies Allergy/AdvReac Type Severity Reaction Status Date / Time Penicillins Allergy RASH Verified 01/09/18 01:48 morphine AdvReac HEADACHE Verified 01/09/18 01:48 mayonnaise AdvReac VOMITING Uncoded 01/09/18 01:48 - Medications Medications: Current Medications Cinacalcet (Sensipar) 30 mg PO DAILY [facility] Last Admin: 01/09/18 12:30 Dose: Not Given Clorazepate Dipotassium (Tranxene-T) 3.75 mg PO [facility] Norepinephrine Bitartrate 4 mg (/ Dextrose) 254 mls @ 9.52 mls/hr IV .Q24H [facility] ; 2.5 MCG/MIN PRN Reason: Protocol Last Admin: 01/09/18 13:27 Dose: 2.5 mcg/min, 9.52 mls/hr Metoprolol Tartrate (Lopressor) 25 mg PO DAILY [facility] Last Admin: 01/09/18 12:00 Dose: Not Given Midodrine (Proamatine) 10 mg PO DAILY [facility] Last Admin: 01/09/18 08:57 Dose: 10 mg Multivitamins/Minerals (Therapeutic-M Tab) 1 tab PO DAILY [facility] Last Admin: 01/09/18 12:30 Dose: Not Given Ondansetron HCl (Zofran Inj) 4 mg IVP Q6 PRN PRN Reason: Nausea/Vomiting Pantoprazole Sodium (Protonix Ec Tab) 40 mg PO DAILY [facility] Last Admin: 01/09/18 08:58 Dose: 40 mg Sevelamer HCl (Renagel) 800 mg PO TID [facility] Last Admin: 01/09/18 12:31 Dose: Not Given Timolol Maleate (Timoptic 0.5% Ophth Soln) 1 drop OD DAILY [facility] Last Admin: 01/09/18 08:58 Dose: 1 drop Physical Exam - Constitutional Appears: No Acute Distress - Head Exam Head Exam: ATRAUMATIC, NORMOCEPHALIC - Eye Exam Eye Exam: EOMI, Normal appearance, PERRL - ENT Exam ENT Exam: Mucous Membranes Moist - Respiratory Exam Respiratory Exam: NORMAL BREATHING PATTERN - Cardiovascular Exam Cardiovascular Exam: REGULAR RHYTHM - GI/Abdominal Exam GI & Abdominal Exam: Distended, Tenderness. absent: Guarding, Hernia, Rebound, Rigid - Extremities Exam Extremities exam: Positive for: normal capillary refill, pedal pulses present - Back Exam Back exam: absent: CVA tenderness (L), CVA tenderness (R) - Neurological Exam Neurological exam: Alert - Psychiatric Exam Psychiatric exam: Normal Affect, Normal Mood - Skin Skin Exam: Dry, Intact, Warm Results - Vital Signs Recent Vital Signs: Last Vital Signs Temp 97.3 F L 01/09/18 12:00 Pulse 88 01/09/18 12:00 Resp 15 01/09/18 12:00 BP 71/46 L 01/09/18 12:00 Pulse Ox 100 01/09/18 12:00 - Labs Result Diagrams: 01/09/18 03:30 01/09/18 03:30 Labs: Laboratory Results - last 24 hr 01/09/18 01/09/18 01/09/18 03:30 03:30 04:01 WBC 3.8 L RBC 4.48 Hgb 14.2 D Hct 42.9 MCV 95.9 D MCH 31.7 H MCHC 33.1 RDW 16.3 H Plt Count 114 L MPV 11.0 Neut % (Auto) 84.6 H Lymph % (Auto) 8.6 L [place] % (Auto) 5.7 Eos % (Auto) 0.4 Baso % (Auto) 0.7 Neut # (Auto) 3.2 Lymph # (Auto) 0.3 L [place] # (Auto) 0.2 Eos # (Auto) 0.0 Baso # (Auto) 0.0 Neutrophils % (Manual) 83 H Lymphocytes % (Manual) 10 L Monocytes % (Manual) 7 Platelet Estimate Markedly decreased L Large Platelets Present Hypochromasia (manual) Slight Anisocytosis (manual) Slight Tear Drop Cells Slight Angelique Cells Moderate PT INR APTT pO2 18 L VBG pH 7.28 L VBG pCO2 67 H* VBG HCO3 25.0 VBG Total CO2 33.6 H VBG O2 Sat (Calc) 25.7 L VBG Base Excess 2.8 H VBG Potassium 7.9 H* Glucose 81 Lactate 2.4 H FiO2 21.0 Crit Value Called To Dr tinoco [place] [id number] Crit Value Read Back Y Blood Gas Notified Time 405 Sodium 140 133.0 Potassium 7.8 H* D Chloride 104 103.0 Carbon Dioxide 25 Anion Gap 19 BUN 117 H* D Creatinine 8.2 H* D Est GFR ( Amer) 6 Est GFR (Non-Af Amer) 5 POC Glucose (mg/dL) Random Glucose 83 Calcium 8.1 L Total Bilirubin 2.4 H AST 90 H D ALT 21 Alkaline Phosphatase 139 H D Total Protein 7.2 Albumin 3.4 L D Globulin 3.8 Albumin/Globulin Ratio 0.9 L Venous Blood Potassium 7.9 H* 01/09/18 01/09/18 11:18 14:00 WBC RBC Hgb Hct MCV MCH MCHC RDW Plt Count MPV Neut % (Auto) Lymph % (Auto) [place] % (Auto) Eos % (Auto) Baso % (Auto) Neut # (Auto) Lymph # (Auto) [place] # (Auto) Eos # (Auto) Baso # (Auto) Neutrophils % (Manual) Lymphocytes % (Manual) Monocytes % (Manual) Platelet Estimate Large Platelets Hypochromasia (manual) Anisocytosis (manual) Tear Drop Cells Tat[place] Cells PT 12.6 INR 1.1 APTT 23.0 L pO2 VBG pH VBG pCO2 VBG HCO3 VBG Total CO2 VBG O2 Sat (Calc) VBG Base Excess VBG Potassium Glucose Lactate FiO2 Crit Value Called To Crit Value Called By Crit Value Read Back Blood Gas Notified Time Sodium Potassium Chloride Carbon Dioxide Anion Gap BUN Creatinine Est GFR ( Amer) Est GFR (Non-Af Amer) POC Glucose (mg/dL) 75 Random Glucose Calcium Total Bilirubin AST ALT Alkaline Phosphatase Total Protein Albumin Globulin Albumin/Globulin Ratio Venous Blood Potassium Assessment & Plan - Assessment and Plan (Free Text) Plan: 77 F with hypotension/shock -Central line placement -Consent obtained from family, risk/benefits discussed -No further surgical intervention needed at this time -Discussed with Dr. Venkat Gambino PGY1 Central Line Placement - Central Line Placement Indication: Emergent IV Access Central Line Placement: Right: Femoral The Area Was Thoroughly Prepared With: Chlorhexidine, Draped Using Sterile Technique Area Was Locally Anesthetized With: Lidocaine 1% Procedure: Triple Lumen, Placed Using Standard Seldinger Technique, Catheter Was Sewn Into Place, Sterile Dressing Placed Over Line, Procedure Tolerated Well
[2018-01-09 16:51] LABS: HEPATITIS B SURFACE AG Negative (NEGATIVE)
[2018-01-09 16:56] LABS: HEPATITIS B CORE AB NEGATIVE (NEGATIVE)
[2018-01-09 17:08] LABS: HEPATITIS C ANTIBODY NEGATIVE (NEGATIVE)
[2018-01-10] MEDS ORDERED: Simethicone 40 mg/0.6 ml Liquid (30 ml) PO STA (00:12)
[2018-01-10 05:37] LABS: HEMOGLOBIN 11.4 g/dL (12.0-16.0); MEAN CELL VOLUME 96.5 fl (81.0-99.0); MEAN CORPUSCULAR HEMOGLOBIN 31.4 pg (27.0-31.0); MEAN CORPUSCULAR HGB CONC 32.6 g/dL (33.0-37.0); RBC 3.61 Mil/uL (3.80-5.20); RED CELL DISTRIBUTION WIDTH 15.9 % (11.5-14.5); WHITE BLOOD COUNT 5.6 K/uL (4.8-10.8)
[2018-01-10 06:03] LABS: CALCIUM 8.4 mg/dL (8.4-10.2)
--- NOTE | 2018-01-10 06:14 | PN ---
DATE: 01/09/2018 CRITICAL CARE PROGRESS NOTE SUBJECTIVE: The patient in ICU bed 435. Time spent 40 minutes. The patient is seen and evaluated at the bedside side. Case was discussed in detail in a.m. rounds. Past medical, surgical and social history reviewed. Notes from the patient's renal commercial solar sales consultant and previous H and P reviewed. A 77-year-old female with hypertension, end-stage renal disease on hemodialysis, chronic lower extremity edema, liver cirrhosis with ascites, undergoing regular paracentesis, also known to atrial fibrillation status post permanent pacemaker insertion, admitted with increasing abdominal girth associated with nausea and vomiting, missed dialysis. In the ER, the patient was noted to have significant hyperkalemia, was treated with hyperkalemia protocol. Admitted to ICU. Seen by renal consult, undergoing emergent hemodialysis with midodrine and dopamine because of the low blood pressure. Awaiting for repeat paracentesis after the dialysis. Remains alert and awake, but in mild discomfort due to the abdominal distention and pain. Denies fever, chills or cough. Shortness of breath at rest but at her baseline. OBJECTIVE: VITAL SIGNS: Shows temperature 97.9, heart rate 79, blood pressure 84/36, mean arterial pressure of 48, respiratory rate 18, saturations 99% on supplement 2 liters. INTAKE AND OUTPUT: Intake not noted, output , weight 100 pounds. HEENT: Pupils are reactive. Conjunctivae pink. Sclerae white. NECK: Supple. Trachea is central. CHEST: Bilateral breath sounds, diminished in intensity. Clear to auscultation anteriorly and laterally. HEART: Rhythm irregular. S1 and S2. No S3 gallop. ABDOMEN: Distended, fluid thrill positive. Tenderness on palpitation. EXTREMITIES: Full range motion. 2+ pedal edema. DP palpable, reduced in intensity, AV fistula on the right upper extremity with good bruit. NEUROLOGIC: Oriented to name, place and time. Normal affect with normal mood. SKIN: Dry and warm. CURRENT MEDICATIONS: Sensipar 30 mg p.o. daily, clorazepate 3.75 mg p.o. at bedtime, Lopressor 25 mg p.o. daily, midodrine 10 mg p.o. daily, multivitamin tablet daily, Zofran 4 mg IV every 6 hours p.r.n., Protonix 40 p.o. daily, Renagel 800 mg p.o. 3 times daily, Timoptic 0.5% 1 drop once daily, and vancomycin 1 g IV x1. LABORATORY DATA: WBC 3.8, hemoglobin 14.2, hematocrit 42.9, MCV 95.9, and platelet count 114. Neutrophils 84.6, lymphocytes 8.6, and monocytes 5.7. ABG; pH 7.28, pCO2 67, and lactate at 2.4. SMA-7; sodium 140, potassium 7.8, chloride 104, CO2 25, anion gap 19, blood urea nitrogen 19, creatinine 8.7, random glucose 83, calcium 8.1, total bilirubin 2.4, AST 19, ALT 21, alkaline phosphatase 130, total protein 7.2, and albumin 3.4. Chest x-ray done this morning, there is mild cardiomegaly unfolding of the aorta, atherosclerotic aortic arch calcification, mild pulmonary venous congestion, otherwise, unremarkable. IMPRESSION AND PLAN: 1. Neuro: Alert and awake, oriented to name, place and time. Mild lethargic, probably related to metabolic encephalopathy. 2. Cardiac: Hypertension, atrial fibrillation status post permanent pacemaker insertion, and history of hypertension, however, remains hypotensive on dialysis, on amiodarone. Continue midodrine. Add dopamine and albumin as needed to maintain blood pressure adequate enough to undergo dialysis. 3. Pulmonary: Mild shortness of breath with pulmonary vascular congestion, secondary to fluid overload, no clear evidence of pneumonia. 4. Gastrointestinal: Abdominal distention with ascites, status post recurrent paracentesis, suspected peritonitis, on vancomycin and gentamicin as per discussion with renal commercial solar sales consultant. 5. Renal: End-stage renal disease on hemodialysis 3 times a week, sometimes 4 times a week with residual fluid accumulation. 6. Hematology: No leukocytosis and normal hemoglobin and hematocrit. Platelet count reduced, secondary to chronic liver disease. 7. Endocrine: Blood sugar about 83. Continue dialysis for missed dialysis, now presenting with hyperkalemia and elevated BUN and creatinine. The patient is scheduled to undergo paracentesis after the dialysis. Follow the peritoneal fluid studies to assess the secondary peritonitis. Corey Espinosa MD [facility] # [id number]
[2018-01-10] MEDS ORDERED: MIDODRINE 10 MG PO SCH (09:00)
[2018-01-10] MEDS: Digoxin 250 mcg (0.25 mg) Tab PO SCH (09:11)
[2018-01-10] MEDS: Pantoprazole 40 mg EC Tab PO SCH (09:12)
[2018-01-10] MEDS: Multivitamin With Minerals Tab PO SCH (09:13)
--- NOTE | 2018-01-10 09:14 | CP.PCM.PN ---
Subjective - Date & Time of Evaluation Date of Evaluation: 01/10/18 Time of Evaluation: 08:30 - Subjective Subjective: Pt complains of abdominal pain, feels blaoted also complains of feeling gassy no fever denies N/V no diarrhea no CP no SOB tolerating PO diet Pt on Levophed 2.5 mcg Objective - Vital Signs/Intake and Output Vital Signs (last 24 hours): Temp Pulse Resp BP Pulse Ox 97.8 F 77 16 99/50 L 100 01/10/18 08:00 01/10/18 08:00 01/10/18 08:00 01/10/18 08:00 01/10/18 08:00 Intake and Output: 01/10/18 01/10/18 06:59 18:59 Intake Total 120 5 Output Total 0 Balance 120 5 - Medications Medications: Current Medications Acetaminophen (Tylenol 325mg Tab) 650 mg PO Q6 PRN PRN Reason: moderate pain level 4-7 Last Admin: 01/09/18 18:18 Dose: 650 mg Apixaban (Eliquis) 2.5 mg PO Q12H [facility] PRN Reason: Protocol Last Admin: 01/10/18 05:28 Dose: 2.5 mg Cinacalcet (Sensipar) 30 mg PO DAILY [facility] Last Admin: 01/10/18 09:13 Dose: 30 mg Clorazepate Dipotassium (Tranxene-T) 3.75 mg PO HS [facility] Last Admin: 01/09/18 23:51 Dose: 3.75 mg Digoxin (Lanoxin) 0.25 mg PO MWF [facility] Last Admin: 01/10/18 09:11 Dose: 0.25 mg Famotidine (Pepcid) 20 mg PO BID [facility] Norepinephrine Bitartrate 4 mg (/ Dextrose) 254 mls @ 9.52 mls/hr IV .Q24H [facility] ; 2.5 MCG/MIN PRN Reason: Protocol Last Admin: 01/09/18 13:27 Dose: 2.5 mcg/min, 9.52 mls/hr Metoprolol Tartrate (Lopressor) 25 mg PO DAILY [facility] Last Admin: 01/10/18 09:12 Dose: Not Given Midodrine (Proamatine) 10 mg PO DAILY [facility] Last Admin: 01/10/18 09:12 Dose: 10 mg Multivitamins/Minerals (Therapeutic-M Tab) 1 tab PO DAILY [facility] Last Admin: 01/10/18 09:13 Dose: 1 tab Ondansetron HCl (Zofran Inj) 4 mg IVP Q6 PRN PRN Reason: Nausea/Vomiting Ondansetron HCl (Zofran Odt) 4 mg PO DAILY [facility] Last Admin: 01/10/18 09:14 Dose: 4 mg Pantoprazole Sodium (Protonix Ec Tab) 40 mg PO DAILY [facility] Last Admin: 01/10/18 09:12 Dose: 40 mg Prednisone (Prednisone Tab) 2.5 mg PO MOFR [facility] Sevelamer HCl (Renagel) 800 mg PO TID [facility] Last Admin: 01/10/18 09:13 Dose: 800 mg Timolol Maleate (Timoptic 0.5% Ophth Soln) 1 drop OD DAILY [facility] Last Admin: 01/10/18 09:13 Dose: 1 drop - Labs Labs: 01/10/18 04:20 01/10/18 04:20 PT 12.6 Seconds (9.8-13.1) 01/09/18 14:00 INR 1.1 (0.9-1.2) 01/09/18 14:00 APTT 23.0 Seconds (25.6-37.1) L 01/09/18 14:00 - Constitutional Appears: No Acute Distress, Chronically Ill - Head Exam Head Exam: NORMAL INSPECTION, NORMOCEPHALIC - Eye Exam Eye Exam: EOMI, Normal appearance Pupil Exam: NORMAL ACCOMODATION - ENT Exam ENT Exam: Mucous Membranes Moist, Normal External Ear Exam - Neck Exam Neck Exam: Full ROM. absent: Meningismus - Respiratory Exam Respiratory Exam: Rales (minimal rales bases), NORMAL BREATHING PATTERN. absent : Respiratory Distress - Cardiovascular Exam Cardiovascular Exam: Irregular Rhythm, +S1, +S2 - GI/Abdominal Exam GI & Abdominal Exam: Distended, Firm, Soft, Tenderness, Normal Bowel Sounds - Extremities Exam Extremities Exam: Normal Capillary Refill. absent: Calf Tenderness, Pedal Edema Additional comments: right arm AVF - Back Exam Back Exam: absent: CVA tenderness (L), CVA tenderness (R) - Neurological Exam Neurological Exam: Alert, Awake, CN II-XII Intact, Oriented x3 - Psychiatric Exam Psychiatric exam: Flat Affect - Skin Skin Exam: Dry, Normal Color, Warm Assessment and Plan - Assessment and Plan (Free Text) Assessment: 77 y/o lady with Hx of ESRD on HD, Cirrhosis with ascites requiring at least 2x per month Paracentesis, was brought in bec of abdominal pain. Patient missed her dialysis last Monday bec of the pain (1) ESRD on HD with Hyperkalemia sec to missed HD K =7.8 now resolved Pt had emergent HD done yesterday Nephrology following pt cont Renagel 2) Abdominal pain ? sec to Ascites r/o SBP - Pt for Paracentesis today by IR Ascitic fluid analysis Pt received IV Genta and Vanco yesterday post HD start IV Cipro Hold Eliquis start PPI 3. Hypotension Pt on Levophed pt has low basleine BP and is on Midodrine at home 4) Chronic A Fib -- stable, continue digoxin - eliquis after paracentesis 5. Cirrhosis with ascites, Thrombocytopenia () DVT prophylaxis Status: Acute SCD Pt is on Eliquis
[2018-01-10] MEDS ORDERED: Sucralfate 1 gm/10 ml Oral Susp UD PO STA (11:23)
[2018-01-10] MEDS: Ciprofloxacin 200mg/100ml D5W 100 ML IVPB SCH (12:12)
[2018-01-10] MEDS ORDERED: Lidocaine Hydrochloride 1% 10 ML ONE (13:36)
--- NOTE | 2018-01-10 13:39 | CP.PCM.PN ---
Subjective - Date & Time of Evaluation Date of Evaluation: 01/10/18 Time of Evaluation: 13:37 - Subjective Subjective: She was seen in the intensive care unit. Her daughter at the bedside. Patient is complaining of abdominal pain. No vomiting reported Also complaining of shortness of breath. Objective - Vital Signs/Intake and Output Vital Signs (last 24 hours): Temp Pulse Resp BP Pulse Ox 97.9 F 81 16 111/57 L 100 01/10/18 12:00 01/10/18 12:00 01/10/18 12:00 01/10/18 12:00 01/10/18 12:00 Intake and Output: 01/10/18 01/10/18 06:59 18:59 Intake Total 120 134 Output Total 0 Balance 120 134 - Medications Medications: Current Medications Acetaminophen (Tylenol 325mg Tab) 650 mg PO Q6 PRN PRN Reason: moderate pain level 4-7 Last Admin: 01/09/18 18:18 Dose: 650 mg Apixaban (Eliquis) 2.5 mg PO Q12H [facility] PRN Reason: Protocol Last Admin: 01/10/18 05:28 Dose: 2.5 mg Cinacalcet (Sensipar) 30 mg PO DAILY [facility] Last Admin: 01/10/18 09:13 Dose: 30 mg Clorazepate Dipotassium (Tranxene-T) 3.75 mg PO HS [facility] Last Admin: 01/09/18 23:51 Dose: 3.75 mg Digoxin (Lanoxin) 0.25 mg PO MWF [facility] Last Admin: 01/10/18 09:11 Dose: 0.25 mg Famotidine (Pepcid) 20 mg PO BID [facility] Last Admin: 01/10/18 12:13 Dose: 20 mg Ciprofloxacin (Cipro 200mg/100ml D5w) 100 mls @ 100 mls/hr IVPB DAILY [facility] PRN Reason: Protocol Last Admin: 01/10/18 12:12 Dose: 100 mls/hr Metoprolol Tartrate (Lopressor) 25 mg PO DAILY [facility] Last Admin: 01/10/18 09:12 Dose: Not Given Midodrine (Proamatine) 10 mg PO Q8 [facility] Multivitamins/Minerals (Therapeutic-M Tab) 1 tab PO DAILY [facility] Last Admin: 01/10/18 09:13 Dose: 1 tab Ondansetron HCl (Zofran Inj) 4 mg IVP Q6 PRN PRN Reason: Nausea/Vomiting Ondansetron HCl (Zofran Odt) 4 mg PO DAILY [facility] Last Admin: 01/10/18 09:14 Dose: 4 mg Pantoprazole Sodium (Protonix Ec Tab) 40 mg PO DAILY [facility] Last Admin: 01/10/18 09:12 Dose: 40 mg Prednisone (Prednisone Tab) 2.5 mg PO MOFR [facility] Sevelamer HCl (Renagel) 800 mg PO TID [facility] Last Admin: 01/10/18 09:13 Dose: 800 mg Timolol Maleate (Timoptic 0.5% Ophth Soln) 1 drop OD DAILY [facility] Last Admin: 01/10/18 09:13 Dose: 1 drop - Labs Labs: 01/10/18 04:20 01/10/18 04:20 PT 12.6 Seconds (9.8-13.1) 01/09/18 14:00 INR 1.1 (0.9-1.2) 01/09/18 14:00 APTT 23.0 Seconds (25.6-37.1) L 01/09/18 14:00 - Constitutional Appears: Chronically Ill - Eye Exam Eye Exam: Conjunctival injection - ENT Exam ENT Exam: Mucous Membranes Moist - Neck Exam Neck Exam: absent: Lymphadenopathy - Respiratory Exam Respiratory Exam: Rhonchi. absent: Chest Wall Tenderness - Cardiovascular Exam Cardiovascular Exam: JVD. absent: Gallop, Rubs - GI/Abdominal Exam GI & Abdominal Exam: Soft, Normal Bowel Sounds - Extremities Exam Extremities Exam: absent: Calf Tenderness - Back Exam Back Exam: absent: CVA tenderness (L), CVA tenderness (R) - Neurological Exam Neurological Exam: Alert, Awake - Psychiatric Exam Psychiatric exam: Anxious - Skin Skin Exam: absent: Cyanosis Assessment and Plan (1) Abdominal pain Status: Acute (2) Ascites Status: Acute (3) ESRD (end stage renal disease) on dialysis Assessment & Plan: #1End stage renal disease Having difficulty to dialysis because of the hypotension despite she was given albumin and dopamin. receiving HD in few minutes. to give more albumin. #2 massive ascitis waiting for paracentesis. #3 peritinitis?/ empiric therapy. #4 chf history and volume overloaded. #5 H/O pericardial effusion,need to do ECHo as soon as possible. #6 hypotension Status: Acute
--- NOTE | 2018-01-10 14:05 | PCM.SURG1 ---
Surgeon's Initial Post Op Note - Surgeon's Notes Surgeon: Javier Layton MD Bulb Brander: None Type of Anesthesia: Local Pre-Operative Diagnosis: Ascites, hypotension Operative Findings: US showed moderate ascites Post-Operative Diagnosis: Ascites, hypotension Operation Performed: US guided paracentesis Specimen/Specimens Removed: 1260 cc of straw colored fluid Estimated Blood Loss: EBL {In ML}: 0 Blood Products Given: N/A Drains Used: No Drains Post-Op Condition: Poor Date of Surgery/Procedure: 01/10/18 Time of Surgery/Procedure: 14:00
[2018-01-10 15:11] LABS: GLUCOSE,BODY FLUID 91 mg/dL (NONE ESTABLISHED); TOTAL PROTEIN,BODY FLUID < 2.0 g/dL (NONE ESTABLISHED)
--- NOTE | 2018-01-10 15:19 | CP.CCUPN ---
CCU Subjective - Physician Review Subjective (Free Text): Awake and remains alert, conversant, no distress, returned from IR Paracentesis with approx. 1200 ml removed, on low dose Levophed 2.5 mcg/min with SBP 120 now, HR 85 sinus, denies any increase in abd discomfort, nausea, dizziness no other weakness. HD cancelled for today, had approx. 500ml fluid removal yesterday during an abbreviated dialysis session. Cardiac rhythm now A fib at 85 / min with intermittent ventricular pacer spikes. Other Vitals and I/Os reviewed. ROS: No other pertinent negs or positives on 10+ system review. PMSFH: DM II, HTN, CAD, Pericardial Window, Frx Left Hip 2005, Pleural effusion, Polycystic Kidney Disease. All other Nursing and physician documentation reviewed to date; no new pertinent info noted relevant to current medical problems. EXAM- HEENT: no icterus, no gaze preference, pupils equal and reactive, no icterus NECK: No JVD, supple, carotids equal upstroke bilat/no bruits CHEST: decreased BS bases, otherwise clear bilat, no wheezes audible HEART: regular distant, S1S2, no rubs. ABD: soft, mild ascitic distention, no tympany, no palp tenderness, BS hypoactive. EXT: Trace edema bilat. No peripheral/ digital cyanosis, no calf tenderness or palpable cords, distal pulses intact and symmetrical. RUE AV fistula with good bruit and thrill. NEURO: no gross focal motor deficits SKIN: no rashes, warm and dry. LABS: WBC= 5.6 HGB= 11.4 PLTs= 95K Na= 141 K= 4.0 HCO3=29 CL= 99 BUN/Cr= 62/5.5 BS= 88 IMPRESSION / MAJOR PROBLEMS NOW: 1. r/o SBP 2. ESRD on CAHD, with Hyperkalemia / Uremia 3. Chronic recurrent Ascites 2 Cirrhosis (?? Cryptogenic ??) 4. Chronic A fib on AC 5. Chronic Thrombocytopenia on chronic steroids. PLAN: 1. Paracentesis with fluid analysis; empiric abx coverage, recd Vanco / gent in ER, continue coverage with Cipro. 2. Repeat urea clearance as BP tolerates. No clinical evidence of any CHF decompensation. Check ECHO. 3. Serial Trops. Procalcitonin level. 4. Metoprolol withheld today as well as Eliquis for paracentesis. Resume Eliquis in AM. Increase Midodrine to TID/Q8H dosing regimen, with weans off Levophed. 5. Monitor for any further decreases in HGB. 6. Resume Steroids. CCU Objective - Vital Signs / Intake & Output Vital Signs (Last 4 hours): Vital Signs Temp Pulse Resp BP Pulse Ox 01/10/18 14:07 73 18 113/62 99 01/10/18 13:38 96.6 F L 86 18 107/56 L 98 01/10/18 12:00 97.9 F 94 H 16 112/54 L 100 Intake and Output (Last 8hrs): Intake & Output 01/10/18 01/10/18 01/10/18 06:59 14:59 22:59 Intake Total 0 134 Balance 0 134 Weight 100 lb Intake: IV 0 34 Intake, Piggyback 100 Oral 0 Other: # Bowel Movements 2 - Medications Active Medications: Active Medications Generic Name Dose Route Start Last Admin Trade Name Freq PRN Reason Stop Dose Admin Acetaminophen 650 mg 01/09/18 17:10 01/09/18 18:18 Tylenol 325mg Tab PO 650 mg Q6 PRN Administration moderate pain level 4-7 Apixaban 2.5 mg 01/09/18 17:45 01/10/18 05:28 Eliquis PO 2.5 mg Q12H [facility] Administration Protocol Cinacalcet 30 mg 01/09/18 09:00 01/10/18 09:13 Sensipar PO 30 mg DAILY [facility] Administration Clorazepate Dipotassium 3.75 mg 01/09/18 22:00 01/09/18 23:51 Tranxene-T PO 3.75 mg HS [facility] Administration Digoxin 0.25 mg 01/10/18 09:00 01/10/18 09:11 Lanoxin PO 0.25 mg MWF [facility] Administration Famotidine 20 mg 01/10/18 09:00 01/10/18 12:13 Pepcid PO 20 mg BID [facility] Administration Ciprofloxacin 100 mls @ 100 mls/hr 01/10/18 10:15 01/10/18 12:12 Cipro 200mg/100ml D5w IVPB 100 mls/hr DAILY [facility] Administration Protocol Metoprolol Tartrate 25 mg 01/09/18 09:00 01/10/18 09:12 Lopressor PO Not Given DAILY [facility] Midodrine 10 mg 01/10/18 09:00 Proamatine PO Q8 [facility] Multivitamins/Minerals 1 tab 01/09/18 09:00 01/10/18 09:13 Therapeutic-M Tab PO 1 tab DAILY [facility] Administration Ondansetron HCl 4 mg 01/09/18 06:13 Zofran Inj IVP Q6 PRN Nausea/Vomiting Ondansetron HCl 4 mg 01/10/18 09:00 01/10/18 09:14 Zofran Odt PO 4 mg DAILY [facility] Administration Pantoprazole Sodium 40 mg 01/09/18 09:00 01/10/18 09:12 Protonix Ec Tab PO 40 mg DAILY [facility] Administration Prednisone 2.5 mg 01/12/18 17:33 Prednisone Tab PO MOFR [facility] Sevelamer HCl 800 mg 01/09/18 09:00 01/10/18 09:13 Renagel PO 800 mg TID [facility] Administration Timolol Maleate 1 drop 01/09/18 09:00 01/10/18 09:13 Timoptic 0.5% Ophth Soln OD 1 drop DAILY [facility] Administration Tramadol HCl 50 mg 01/10/18 15:05 Ultram PO Q6 PRN Pain, moderate (4-7) - Patient Studies Lab Studies: Microbiology Studies 01/09/18 03:15 Blood Culture - Preliminary Blood-Venous NO GROWTH AFTER 24 HOURS 01/09/18 03:33 Blood Culture - Preliminary Blood-Venous NO GROWTH AFTER 24 HOURS Lab Studies 01/10/18 01/10/18 01/10/18 Range/Units 14:12 14:12 04:20 WBC (4.8-10.8) K/uL RBC (3.80-5.20) Mil/uL Hgb (12.0-16.0) g/dL Hct (34.0-47.0) % MCV (81.0-99.0) fl MCH (27.0-31.0) pg MCHC (33.0-37.0) g/dL RDW (11.5-14.5) % Plt Count (130-400) K/uL Sodium 141 (132-148) mmol/l Potassium 4.0 (3.6-5.0) MMOL/L Chloride 99 (98-107) mmol/L Carbon Dioxide 29 (22-30) mmol/L Anion Gap 17 (10-20) BUN 62 H (7-17) mg/dl Creatinine 5.5 H (0.7-1.2) mg/dl Est GFR ( Amer) 9 Est GFR (Non-Af Amer) 8 POC Glucose (mg/dL) (65-110) mg/dL Random Glucose 88 (65-105) mg/dL Calcium 8.4 (8.4-10.2) mg/dL Fluid Source Peritoneal/ascites Fluid Glucose 91 (NONE ESTABLISHED) mg/dL Fluid Total Protein < 2.0 Cancelled Fluid LDH 524 (NONE ESTABLISHED) IU Hep Bs Antigen (NEGATIVE) Hep Bs Antibody (NEGATIVE) Hep B Core IgM Ab (NEGATIVE) Hepatitis C Antibody (NEGATIVE) 01/10/18 01/09/18 01/09/18 Range/Units 04:20 16:57 11:05 WBC 5.6 (4.8-10.8) K/uL RBC 3.61 L (3.80-5.20) Mil/uL Hgb 11.4 L D (12.0-16.0) g/dL Hct 34.9 (34.0-47.0) % MCV 96.5 (81.0-99.0) fl MCH 31.4 H (27.0-31.0) pg MCHC 32.6 L (33.0-37.0) g/dL RDW 15.9 H (11.5-14.5) % Plt Count 95 L (130-400) K/uL Sodium (132-148) mmol/l Potassium (3.6-5.0) MMOL/L Chloride (98-107) mmol/L Carbon Dioxide (22-30) mmol/L Anion Gap (10-20) BUN (7-17) mg/dl Creatinine (0.7-1.2) mg/dl Est GFR ( Amer) Est GFR (Non-Af Amer) POC Glucose (mg/dL) 77 (65-110) mg/dL Random Glucose (65-105) mg/dL Calcium (8.4-10.2) mg/dL Fluid Source Fluid Glucose (NONE ESTABLISHED) mg/dL Fluid Total Protein Fluid LDH (NONE ESTABLISHED) IU Hep Bs Antigen (NEGATIVE) Hep Bs Antibody Positive (NEGATIVE) Hep B Core IgM Ab (NEGATIVE) Hepatitis C Antibody (NEGATIVE) 01/09/18 Range/Units 11:05 WBC (4.8-10.8) K/uL RBC (3.80-5.20) Mil/uL Hgb (12.0-16.0) g/dL Hct (34.0-47.0) % MCV (81.0-99.0) fl MCH (27.0-31.0) pg MCHC (33.0-37.0) g/dL RDW (11.5-14.5) % Plt Count (130-400) K/uL Sodium (132-148) mmol/l Potassium (3.6-5.0) MMOL/L Chloride (98-107) mmol/L Carbon Dioxide (22-30) mmol/L Anion Gap (10-20) BUN (7-17) mg/dl Creatinine (0.7-1.2) mg/dl Est GFR ( Amer) Est GFR (Non-Af Amer) POC Glucose (mg/dL) (65-110) mg/dL Random Glucose (65-105) mg/dL Calcium (8.4-10.2) mg/dL Fluid Source Fluid Glucose (NONE ESTABLISHED) mg/dL Fluid Total Protein Fluid LDH (NONE ESTABLISHED) IU Hep Bs Antigen Negative (NEGATIVE) Hep Bs Antibody (NEGATIVE) Hep B Core IgM Ab Negative (NEGATIVE) Hepatitis C Antibody Negative (NEGATIVE) Laboratory Results - last 24 hr 01/09/18 01/09/18 01/09/18 11:05 11:05 16:57 WBC RBC Hgb Hct MCV MCH MCHC RDW Plt Count Sodium Potassium Chloride Carbon Dioxide Anion Gap BUN Creatinine Est GFR ( Amer) Est GFR (Non-Af Amer) POC Glucose (mg/dL) 77 Random Glucose Calcium Fluid Source Fluid Glucose Fluid Total Protein Fluid LDH Hep Bs Antigen Negative Hep Bs Antibody Positive Hep B Core IgM Ab Negative Hepatitis C Antibody Negative 01/10/18 01/10/18 01/10/18 04:20 04:20 14:12 WBC 5.6 RBC 3.61 L Hgb 11.4 L D Hct 34.9 MCV 96.5 MCH 31.4 H MCHC 32.6 L RDW 15.9 H Plt Count 95 L Sodium 141 Potassium 4.0 Chloride 99 Carbon Dioxide 29 Anion Gap 17 BUN 62 H Creatinine 5.5 H Est GFR ( Amer) 9 Est GFR (Non-Af Amer) 8 POC Glucose (mg/dL) Random Glucose 88 Calcium 8.4 Fluid Source Peritoneal/ascites Fluid Glucose Fluid Total Protein Cancelled Fluid LDH Hep Bs Antigen Hep Bs Antibody Hep B Core IgM Ab Hepatitis C Antibody 01/10/18 14:12 WBC RBC Hgb Hct MCV MCH MCHC RDW Plt Count Sodium Potassium Chloride Carbon Dioxide Anion Gap BUN Creatinine Est GFR ( Amer) Est GFR (Non-Af Amer) POC Glucose (mg/dL) Random Glucose Calcium Fluid Source Fluid Glucose 91 Fluid Total Protein < 2.0 Fluid LDH 524 Hep Bs Antigen Hep Bs Antibody Hep B Core IgM Ab Hepatitis C Antibody Critical Care Progress Note - Nutrition Nutrition: Nutrition Category Date Time Status Renal Diet [DIET] Diets 01/09/18 Dinner Active
[2018-01-10 16:40] LABS: BF GROSS APPEARANCE CLEAR (CLEAR); BODY FLUID TYPE PERITONEAL/ASCITES
[2018-01-10 16:41] LABS: BODY FLUID MONO/MACROPHAGE 25 % (0-0)
[2018-01-10 16:43] LABS: BODY FLUID TOTAL COUNT 100 (0-0)
[2018-01-11 08:18] LABS: BASO % 0.1 % (0.0-2.0); EOS % 0.1 % (0.0-4.0); HEMOGLOBIN 12.2 g/dL (12.0-16.0); LYMPH # 0.4 K/uL (1.0-4.3); LYMPH % 6.3 % (20.0-40.0); MEAN CELL VOLUME 97.3 fl (81.0-99.0); MEAN CORPUSCULAR HEMOGLOBIN 31.4 pg (27.0-31.0); MEAN CORPUSCULAR HGB CONC 32.3 g/dL (33.0-37.0); MEAN PLATELET VOLUME 10.6 fl (7.2-11.7); MONO # 0.9 K/uL (0.0-0.8); MONO % 12.6 % (0.0-10.0); NEUT # 5.6 K/uL (1.8-7.0); NEUT % 80.9 % (50.0-75.0); NRBC % 0.1 % (0.0-0.0); RBC 3.87 Mil/uL (3.80-5.20); RED CELL DISTRIBUTION WIDTH 15.6 % (11.5-14.5); WHITE BLOOD COUNT 6.9 K/uL (4.8-10.8)
[2018-01-11 09:02] LABS: ALB/GLOB RATIO 0.9 (1.0-2.1); ALBUMIN 2.5 g/dL (3.5-5.0); CALCIUM 8.1 mg/dL (8.4-10.2)
[2018-01-11] MEDS: Ciprofloxacin 200mg/100ml D5W 100 ML IVPB SCH (09:34)
[2018-01-11] MEDS: Pantoprazole 40 mg EC Tab PO SCH (09:35)
[2018-01-11] MEDS: Multivitamin With Minerals Tab PO SCH (09:37)
--- NOTE | 2018-01-11 11:56 | CP.PCM.PN ---
Subjective - Date & Time of Evaluation Date of Evaluation: 01/11/18 Time of Evaluation: 11:15 - Subjective Subjective: Pt having dialysis no fever abd pain better no diarrhea today but had some loose stools yesterday pt has hx of recurrent C diff accdg to daughter - treated by her ID at [place] no CP no SOB Objective - Vital Signs/Intake and Output Vital Signs (last 24 hours): Temp Pulse Resp BP Pulse Ox 98.0 F 69 16 105/43 L 99 01/11/18 00:00 01/11/18 00:00 01/11/18 00:00 01/11/18 00:00 01/11/18 00:00 Intake and Output: 01/11/18 01/11/18 06:59 18:59 Intake Total 100 Balance 100 - Medications Medications: Current Medications Acetaminophen (Tylenol 325mg Tab) 650 mg PO Q6 PRN PRN Reason: moderate pain level 4-7 Last Admin: 01/09/18 18:18 Dose: 650 mg Apixaban (Eliquis) 2.5 mg PO Q12H [facility] PRN Reason: Protocol Last Admin: 01/10/18 05:28 Dose: 2.5 mg Cinacalcet (Sensipar) 30 mg PO DAILY [facility] Last Admin: 01/11/18 09:36 Dose: 30 mg Clorazepate Dipotassium (Tranxene-T) 3.75 mg PO HS [facility] Last Admin: 01/10/18 21:36 Dose: 3.75 mg Digoxin (Lanoxin) 0.25 mg PO MWF [facility] Last Admin: 01/10/18 09:11 Dose: 0.25 mg Famotidine (Pepcid) 20 mg PO BID [facility] Last Admin: 01/10/18 16:51 Dose: 20 mg Ciprofloxacin (Cipro 200mg/100ml D5w) 100 mls @ 100 mls/hr IVPB DAILY [facility] PRN Reason: Protocol Last Admin: 01/11/18 09:34 Dose: 100 mls/hr Metoprolol Tartrate (Lopressor) 25 mg PO DAILY [facility] Last Admin: 01/10/18 09:12 Dose: Not Given Midodrine (Proamatine) 10 mg PO Q8 [facility] Last Admin: 01/11/18 08:25 Dose: 10 mg Multivitamins/Minerals (Therapeutic-M Tab) 1 tab PO DAILY [facility] Last Admin: 01/11/18 09:37 Dose: 1 tab Ondansetron HCl (Zofran Inj) 4 mg IVP Q6 PRN PRN Reason: Nausea/Vomiting Ondansetron HCl (Zofran Odt) 4 mg PO DAILY [facility] Last Admin: 01/11/18 09:37 Dose: 4 mg Pantoprazole Sodium (Protonix Ec Tab) 40 mg PO DAILY [facility] Last Admin: 01/11/18 09:35 Dose: 40 mg Prednisone (Prednisone Tab) 2.5 mg PO MOFR [facility] Sevelamer HCl (Renagel) 800 mg PO TID [facility] Last Admin: 01/11/18 09:36 Dose: 800 mg Timolol Maleate (Timoptic 0.5% Ophth Soln) 1 drop OD DAILY [facility] Last Admin: 01/11/18 09:37 Dose: 1 drop Tramadol HCl (Ultram) 50 mg PO Q6 PRN PRN Reason: Pain, moderate (4-7) Last Admin: 01/11/18 09:39 Dose: 50 mg - Labs Labs: 01/11/18 07:30 01/11/18 07:30 PT 12.6 Seconds (9.8-13.1) 01/09/18 14:00 INR 1.1 (0.9-1.2) 01/09/18 14:00 APTT 23.0 Seconds (25.6-37.1) L 01/09/18 14:00 - Constitutional Appears: No Acute Distress, Chronically Ill - Head Exam Head Exam: NORMAL INSPECTION, NORMOCEPHALIC - Eye Exam Eye Exam: EOMI, Normal appearance Pupil Exam: NORMAL ACCOMODATION - ENT Exam ENT Exam: Mucous Membranes Moist, Normal External Ear Exam - Neck Exam Neck Exam: Full ROM. absent: Meningismus - Respiratory Exam Respiratory Exam: Rales (minimal rales bases), NORMAL BREATHING PATTERN. absent : Respiratory Distress - Cardiovascular Exam Cardiovascular Exam: Irregular Rhythm, +S1, +S2 - GI/Abdominal Exam GI & Abdominal Exam: Distended, Firm, Soft, mild Tenderness, Normal Bowel Sounds - Extremities Exam Extremities Exam: Normal Capillary Refill. absent: Calf Tenderness, Pedal Edema Additional comments: right arm AVF - Back Exam Back Exam: absent: CVA tenderness (L), CVA tenderness (R) - Neurological Exam Neurological Exam: Alert, Awake, CN II-XII Intact, Oriented x3 - Psychiatric Exam Psychiatric exam: Flat Affect - Skin Skin Exam: Dry, Normal Color, Warm Assessment and Plan - Assessment and Plan (Free Text) Assessment: 77 y/o lady with Hx of ESRD on HD, Cirrhosis with ascites requiring at least 2x per month Paracentesis, was brought in bec of abdominal pain. Patient missed her dialysis last Monday bec of the pain. In the ED - patient was noted to be sl hypotensive with BP in the 80 systolic and her Lactate was elevated at 2.4 - she was then admitted to ICU and started on Levophed. CT of the abdomen : 1. Cirrhosis of liver, large abdominal and pelvic ascites. 2. Small loculated right pleural effusion with pleural calcifications. 3. Stable noncalcified nodules in the right lower lobe, the largest measures 8 mm. In a low risk patient follow-up in 12 month interval and in a high-risk patient follow-up in six-month interval is recommended to assess stability 4. Cholelithiasis. 5. Polycystic kidneys. (1) ESRD on HD with Hyperkalemia sec to missed HD K =7.8 on admission now resolved Pt had emergent HD done on admission for HD today Nephrology following pt cont Renagel 2) Abdominal pain ? sec to Ascites SBP ruled out also need to r/o C diff ( pt with hx of recurrent C diff) - s/o Paracentesis done by IR 01/10 Ascitic fluid analysis : negative for infection Pt received IV Genta and Vanco yesterday post HD empirically on IV Cipro Stool for C diff ID consult: Dr Maxwell Lactate and Prolactin elevated 3. Hypotension Pt on Levophed at 2.5 mcg pt has low baseline BP and is on Midodrine at home Increase Midodrine to 10 mg TID 4) Chronic A Fib -- stable, continue digoxin - cont eliquis 5. Cirrhosis with ascites, Thrombocytopenia cont Paracentesis prn Pt follows up with GI in [place] () DVT prophylaxis Status: Acute SCD Pt is on Eliquis
--- NOTE | 2018-01-11 12:12 | CP.PCM.CON ---
History of Present Illness - History of Present Illness History of Present Illness: Infectious Disease Consultation Note- asked to see this patient at the request of Hospitalist for ? SBP, high lactate and help with antibiotic management. 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 on admission pt. was found to have high lactate and hence admitted to ICU. pt. is s/p HD today and s/p paracenthesis here yesterday. she states she feels better compared to admission and denies any further nausea but still has diarrhea and still has abdominal discomfort. Patient states the diarrhea is not new and for almost 4 years she has been having almost daily diarrhea but states 2 days prior to admission it was more frequent and she also developed nausea and more abd. pain and hence she came to hospital for further evaluation and treatment. she denies any fever or chills. denies any cough or sob, denies any chest pain. upon questioning what happens with PCN she states that it gives her nausea but she denies any rash or hives or any trouble with breathing. MHx: A fib, anxiety, HTN, ESRD on HD, chronic LE edema, ?liver disease with ascites SHx: Endoscopy, Pacemaker, RUE HD fistula Allergies: PCN ( nausea) Family Hx: Reviewed, no relevant findings Social Hx: Lives with family, no tobacco, no EtOH Review of Systems - Review of Systems Review of Systems: ROS- denies any fever or chills, denies any URBINA, denies any cough or sob, denies any chest pain, + abdominal bloating and pain all over chronic but was worse prior to admission, + nausea but resolved now, + chronic diarrhea, anuric denies any recent travel denies any sick contacts Past Patient History - Infectious Disease Hx of Infectious Diseases: None - Tetanus Immunizations Tetanus Immunization: Unknown - Past Medical History & Family History Past Medical History?: Yes - Past Social History Alcohol: None Drugs: Denies Home Situation {Lives}: With Family - CARDIAC Hx Atrial Fibrillation: Yes Hx Hypertension: Yes Hx Pacemaker: Yes (left femoral) Hx Peripheral Edema: Yes - PULMONARY Hx Pneumonia: Yes - NEUROLOGICAL Hx Neurological Disorder: No - HEENT Hx Glaucoma: Yes - RENAL Hx Chronic Kidney Disease: Yes - ENDOCRINE/METABOLIC Hx Endocrine Disorders: No - HEMATOLOGICAL/ONCOLOGICAL Hx Anemia: Yes - INTEGUMENTARY Hx Dermatological Problems: No - MUSCULOSKELETAL/RHEUMATOLOGICAL Hx Arthritis: Yes Hx Fractures: No - GASTROINTESTINAL Hx Diverticulitis: Yes - GENITOURINARY/GYNECOLOGICAL Hx Genitourinary Disorders: No - PSYCHIATRIC Hx Anxiety: Yes - SURGICAL HISTORY Hx Surgeries: Yes Other/Comment: PARACENTESIS SERIES. Hip replacement - ANESTHESIA Hx Anesthesia: Yes Hx Anesthesia Reactions: Yes (HARD TO WAKE UP) Hx Malignant Hyperthermia: No Meds Allergies/Adverse Reactions: Allergies Allergy/AdvReac Type Severity Reaction Status Date / Time Penicillins Allergy RASH Verified 01/09/18 01:48 morphine AdvReac HEADACHE Verified 01/09/18 01:48 mayonnaise AdvReac VOMITING Uncoded 01/09/18 01:48 - Medications Medications: Current Medications Acetaminophen (Tylenol 325mg Tab) 650 mg PO Q6 PRN PRN Reason: moderate pain level 4-7 Last Admin: 01/09/18 18:18 Dose: 650 mg Apixaban (Eliquis) 2.5 mg PO Q12H [facility] PRN Reason: Protocol Last Admin: 01/10/18 05:28 Dose: 2.5 mg Cinacalcet (Sensipar) 30 mg PO DAILY [facility] Last Admin: 01/11/18 09:36 Dose: 30 mg Clorazepate Dipotassium (Tranxene-T) 3.75 mg PO HS [facility] Last Admin: 01/10/18 21:36 Dose: 3.75 mg Digoxin (Lanoxin) 0.25 mg PO MWF [facility] Last Admin: 01/10/18 09:11 Dose: 0.25 mg Famotidine (Pepcid) 20 mg PO BID [facility] Last Admin: 01/10/18 16:51 Dose: 20 mg Ciprofloxacin (Cipro 200mg/100ml D5w) 100 mls @ 100 mls/hr IVPB DAILY [facility] PRN Reason: Protocol Last Admin: 01/11/18 09:34 Dose: 100 mls/hr Metoprolol Tartrate (Lopressor) 25 mg PO DAILY [facility] Last Admin: 01/10/18 09:12 Dose: Not Given Midodrine (Proamatine) 10 mg PO Q8 [facility] Last Admin: 01/11/18 08:25 Dose: 10 mg Multivitamins/Minerals (Therapeutic-M Tab) 1 tab PO DAILY [facility] Last Admin: 01/11/18 09:37 Dose: 1 tab Ondansetron HCl (Zofran Inj) 4 mg IVP Q6 PRN PRN Reason: Nausea/Vomiting Ondansetron HCl (Zofran Odt) 4 mg PO DAILY [facility] Last Admin: 01/11/18 09:37 Dose: 4 mg Pantoprazole Sodium (Protonix Ec Tab) 40 mg PO DAILY [facility] Last Admin: 01/11/18 09:35 Dose: 40 mg Prednisone (Prednisone Tab) 2.5 mg PO MOFR [facility] Sevelamer HCl (Renagel) 800 mg PO TID [facility] Last Admin: 01/11/18 09:36 Dose: 800 mg Timolol Maleate (Timoptic 0.5% Ophth Soln) 1 drop OD DAILY [facility] Last Admin: 01/11/18 09:37 Dose: 1 drop Tramadol HCl (Ultram) 50 mg PO Q6 PRN PRN Reason: Pain, moderate (4-7) Last Admin: 01/11/18 09:39 Dose: 50 mg Physical Exam - Constitutional Appears: Non-toxic, No Acute Distress - Head Exam Head Exam: ATRAUMATIC - Eye Exam Eye Exam: EOMI, PERRL - ENT Exam ENT Exam: Normal Oropharynx - Neck Exam Neck exam: Positive for: Full Rom - Respiratory Exam Respiratory Exam: Clear to Auscultation Bilateral, NORMAL BREATHING PATTERN - Cardiovascular Exam Cardiovascular Exam: RRR, +S1, +S2 - GI/Abdominal Exam Additional comments: soft, distended, + ascites minimal tenderness throughout abdomen but no guarding, no rebound + BS - Extremities Exam Additional comments: no edema B/L LE Right arm HD access site , clean , no erythema - Neurological Exam Neurological exam: Alert, Oriented x3 Results - Vital Signs Recent Vital Signs: Last Vital Signs Temp 98.0 F 01/11/18 00:00 Pulse 69 01/11/18 00:00 Resp 16 01/11/18 00:00 BP 105/43 L 01/11/18 00:00 Pulse Ox 99 01/11/18 00:00 - Labs Result Diagrams: 01/11/18 07:30 01/11/18 07:30 Labs: Laboratory Results - last 24 hr 04/04/18 04/04/18 04/04/18 14:12 14:12 14:30 WBC RBC Hgb Hct MCV MCH MCHC RDW Plt Count MPV Neut % (Auto) Lymph % (Auto) [place] % (Auto) Eos % (Auto) Baso % (Auto) Neut # (Auto) Lymph # (Auto) [place] # (Auto) Eos # (Auto) Baso # (Auto) Sodium Potassium Chloride Carbon Dioxide Anion Gap BUN Creatinine Est GFR ( Amer) Est GFR (Non-Af Amer) Random Glucose Calcium Total Bilirubin AST ALT Alkaline Phosphatase Troponin I Total Protein Albumin Globulin Albumin/Globulin Ratio Procalcitonin Fluid Source Cancelled Peritoneal/ascites Fluid Appearance Cancelled Clear Fluid WBC Cancelled 47.0 Fluid RBC Cancelled 20.0 H Fluid Tot Cell Count Cancelled 100 H Fluid Neutrophils Cancelled 55.0 H Fluid Lymphocytes Cancelled 20.0 H Fld Monocyte/Macrophag Cancelled 25 H Fluid Glucose 91 Fluid Total Protein Cancelled < 2.0 Fluid LDH 524 Fluid Comment Cancelled Yellow 01/10/18 01/10/18 01/11/18 15:58 16:30 07:30 WBC 6.9 RBC 3.87 Hgb 12.2 Hct 37.7 MCV 97.3 MCH 31.4 H MCHC 32.3 L RDW 15.6 H Plt Count 103 L MPV 10.6 Neut % (Auto) 80.9 H Lymph % (Auto) 6.3 L [place] % (Auto) 12.6 H Eos % (Auto) 0.1 Baso % (Auto) 0.1 Neut # (Auto) 5.6 Lymph # (Auto) 0.4 L [place] # (Auto) 0.9 H Eos # (Auto) 0.0 Baso # (Auto) 0.0 Sodium Potassium Chloride Carbon Dioxide Anion Gap BUN Creatinine Est GFR ( Amer) Est GFR (Non-Af Amer) Random Glucose Calcium Total Bilirubin AST ALT Alkaline Phosphatase Troponin I 0.0490 Total Protein Albumin Globulin Albumin/Globulin Ratio Procalcitonin 42.18 H Fluid Source Fluid Appearance Fluid WBC Fluid RBC Fluid Tot Cell Count Fluid Neutrophils Fluid Lymphocytes Fld Monocyte/Macrophag Fluid Glucose Fluid Total Protein Fluid LDH Fluid Comment 01/11/18 07:30 WBC RBC Hgb Hct MCV MCH MCHC RDW Plt Count MPV Neut % (Auto) Lymph % (Auto) [place] % (Auto) Eos % (Auto) Baso % (Auto) Neut # (Auto) Lymph # (Auto) [place] # (Auto) Eos # (Auto) Baso # (Auto) Sodium 139 Potassium 4.4 Chloride 100 Carbon Dioxide 24 Anion Gap 19 BUN 80 H Creatinine 6.4 H Est GFR ( Amer) 8 Est GFR (Non-Af Amer) 6 Random Glucose 93 Calcium 8.1 L Total Bilirubin 0.8 AST 23 ALT 36 Alkaline Phosphatase 81 Troponin I Total Protein 5.4 L Albumin 2.5 L D Globulin 2.9 Albumin/Globulin Ratio 0.9 L Procalcitonin Fluid Source Fluid Appearance Fluid WBC Fluid RBC Fluid Tot Cell Count Fluid Neutrophils Fluid Lymphocytes Fld Monocyte/Macrophag Fluid Glucose Fluid Total Protein Fluid LDH Fluid Comment Laboratory Results - last 72 hr 01/09/18 01/09/18 01/09/18 03:30 03:30 04:01 WBC 3.8 L RBC 4.48 Hgb 14.2 D Hct 42.9 MCV 95.9 D MCH 31.7 H MCHC 33.1 RDW 16.3 H Plt Count 114 L MPV 11.0 Neut % (Auto) 84.6 H Lymph % (Auto) 8.6 L [place] % (Auto) 5.7 Eos % (Auto) 0.4 Baso % (Auto) 0.7 Neut # (Auto) 3.2 Lymph # (Auto) 0.3 L [place] # (Auto) 0.2 Eos # (Auto) 0.0 Baso # (Auto) 0.0 Neutrophils % (Manual) 83 H Lymphocytes % (Manual) 10 L Monocytes % (Manual) 7 Platelet Estimate Markedly decreased L Large Platelets Present Hypochromasia (manual) Slight Anisocytosis (manual) Slight Tear Drop Cells Slight Angelique Cells Moderate PT INR APTT pO2 18 L VBG pH 7.28 L VBG pCO2 67 H* VBG HCO3 25.0 VBG Total CO2 33.6 H VBG O2 Sat (Calc) 25.7 L VBG Base Excess 2.8 H VBG Potassium 7.9 H* Glucose 81 Lactate 2.4 H FiO2 21.0 Crit Value Called To Dr tinoco Crit Value Called By 2752 Crit Value Read Back Y Blood Gas Notified Time 405 Sodium 140 133.0 Potassium 7.8 H* D Chloride 104 103.0 Carbon Dioxide 25 Anion Gap 19 BUN 117 H* D Creatinine 8.2 H* D Est GFR ( Amer) 6 Est GFR (Non-Af Amer) 5 POC Glucose (mg/dL) Random Glucose 83 Calcium 8.1 L Total Bilirubin 2.4 H AST 90 H D ALT 21 Alkaline Phosphatase 139 H D Troponin I Total Protein 7.2 Albumin 3.4 L D Globulin 3.8 Albumin/Globulin Ratio 0.9 L Procalcitonin Venous Blood Potassium 7.9 H* Fluid Source Fluid Appearance Fluid WBC Fluid RBC Fluid Tot Cell Count Fluid Neutrophils Fluid Lymphocytes Fld Monocyte/Macrophag Fluid Glucose Fluid Total Protein Fluid LDH Fluid Comment Hep Bs Antigen Hep Bs Antibody Hep B Core IgM Ab Hepatitis C Antibody 01/09/18 01/09/18 01/09/18 11:05 11:05 11:18 WBC RBC Hgb Hct MCV MCH MCHC RDW Plt Count MPV Neut % (Auto) Lymph % (Auto) [place] % (Auto) Eos % (Auto) Baso % (Auto) Neut # (Auto) Lymph # (Auto) [place] # (Auto) Eos # (Auto) Baso # (Auto) Neutrophils % (Manual) Lymphocytes % (Manual) Monocytes % (Manual) Platelet Estimate Large Platelets Hypochromasia (manual) Anisocytosis (manual) Tear Drop Cells [place] Cells PT INR APTT pO2 VBG pH VBG pCO2 VBG HCO3 VBG Total CO2 VBG O2 Sat (Calc) VBG Base Excess VBG Potassium Glucose Lactate FiO2 Crit Value Called To Crit Value Called By Crit Value Read Back Blood Gas Notified Time Sodium Potassium Chloride Carbon Dioxide Anion Gap BUN Creatinine Est GFR ( Amer) Est GFR (Non-Af Amer) POC Glucose (mg/dL) 75 Random Glucose Calcium Total Bilirubin AST ALT Alkaline Phosphatase Troponin I Total Protein Albumin Globulin Albumin/Globulin Ratio Procalcitonin Venous Blood Potassium Fluid Source Fluid Appearance Fluid WBC Fluid RBC Fluid Tot Cell Count Fluid Neutrophils Fluid Lymphocytes Fld Monocyte/Macrophag Fluid Glucose Fluid Total Protein Fluid LDH Fluid Comment Hep Bs Antigen Negative Hep Bs Antibody Positive Hep B Core IgM Ab Negative Hepatitis C Antibody Negative 01/09/18 01/09/18 01/10/18 14:00 16:57 04:20 WBC 5.6 RBC 3.61 L Hgb 11.4 L D Hct 34.9 MCV 96.5 MCH 31.4 H MCHC 32.6 L RDW 15.9 H Plt Count 95 L MPV Neut % (Auto) Lymph % (Auto) [place] % (Auto) Eos % (Auto) Baso % (Auto) Neut # (Auto) Lymph # (Auto) [place] # (Auto) Eos # (Auto) Baso # (Auto) Neutrophils % (Manual) Lymphocytes % (Manual) Monocytes % (Manual) Platelet Estimate Large Platelets Hypochromasia (manual) Anisocytosis (manual) Tear Drop Cells [place] Cells PT 12.6 INR 1.1 APTT 23.0 L pO2 VBG pH VBG pCO2 VBG HCO3 VBG Total CO2 VBG O2 Sat (Calc) VBG Base Excess VBG Potassium Glucose Lactate FiO2 Crit Value Called To Crit Value Called By Crit Value Read Back Blood Gas Notified Time Sodium Potassium Chloride Carbon Dioxide Anion Gap BUN Creatinine Est GFR ( Amer) Est GFR (Non-Af Amer) POC Glucose (mg/dL) 77 Random Glucose Calcium Total Bilirubin AST ALT Alkaline Phosphatase Troponin I Total Protein Albumin Globulin Albumin/Globulin Ratio Procalcitonin Venous Blood Potassium Fluid Source Fluid Appearance Fluid WBC Fluid RBC Fluid Tot Cell Count Fluid Neutrophils Fluid Lymphocytes Fld Monocyte/Macrophag Fluid Glucose Fluid Total Protein Fluid LDH Fluid Comment Hep Bs Antigen Hep Bs Antibody Hep B Core IgM Ab Hepatitis C Antibody 01/10/18 01/10/18 01/10/18 04:20 14:12 14:12 WBC RBC Hgb Hct MCV MCH MCHC RDW Plt Count MPV Neut % (Auto) Lymph % (Auto) [place] % (Auto) Eos % (Auto) Baso % (Auto) Neut # (Auto) Lymph # (Auto) [place] # (Auto) Eos # (Auto) Baso # (Auto) Neutrophils % (Manual) Lymphocytes % (Manual) Monocytes % (Manual) Platelet Estimate Large Platelets Hypochromasia (manual) Anisocytosis (manual) Tear Drop Cells [place] Cells PT INR APTT pO2 VBG pH VBG pCO2 VBG HCO3 VBG Total CO2 VBG O2 Sat (Calc) VBG Base Excess VBG Potassium Glucose Lactate FiO2 Crit Value Called To Crit Value Called By Crit Value Read Back Blood Gas Notified Time Sodium 141 Potassium 4.0 Chloride 99 Carbon Dioxide 29 Anion Gap 17 BUN 62 H Creatinine 5.5 H Est GFR ( Amer) 9 Est GFR (Non-Af Amer) 8 POC Glucose (mg/dL) Random Glucose 88 Calcium 8.4 Total Bilirubin AST ALT Alkaline Phosphatase Troponin I Total Protein Albumin Globulin Albumin/Globulin Ratio Procalcitonin Venous Blood Potassium Fluid Source Cancelled Fluid Appearance Cancelled Fluid WBC Cancelled Fluid RBC Cancelled Fluid Tot Cell Count Cancelled Fluid Neutrophils Cancelled Fluid Lymphocytes Cancelled Fld Monocyte/Macrophag Cancelled Fluid Glucose 91 Fluid Total Protein Cancelled < 2.0 Fluid LDH 524 Fluid Comment Cancelled Hep Bs Antigen Hep Bs Antibody Hep B Core IgM Ab Hepatitis C Antibody 01/10/18 01/10/18 01/10/18 14:30 15:58 16:30 WBC RBC Hgb Hct MCV MCH MCHC RDW Plt Count MPV Neut % (Auto) Lymph % (Auto) [place] % (Auto) Eos % (Auto) Baso % (Auto) Neut # (Auto) Lymph # (Auto) [place] # (Auto) Eos # (Auto) Baso # (Auto) Neutrophils % (Manual) Lymphocytes % (Manual) Monocytes % (Manual) Platelet Estimate Large Platelets Hypochromasia (manual) Anisocytosis (manual) Tear Drop Cells [place] Cells PT INR APTT pO2 VBG pH VBG pCO2 VBG HCO3 VBG Total CO2 VBG O2 Sat (Calc) VBG Base Excess VBG Potassium Glucose Lactate FiO2 Crit Value Called To Crit Value Called By Crit Value Read Back Blood Gas Notified Time Sodium Potassium Chloride Carbon Dioxide Anion Gap BUN Creatinine Est GFR ( Amer) Est GFR (Non-Af Amer) POC Glucose (mg/dL) Random Glucose Calcium Total Bilirubin AST ALT Alkaline Phosphatase Troponin I 0.0490 Total Protein Albumin Globulin Albumin/Globulin Ratio Procalcitonin 42.18 H Venous Blood Potassium Fluid Source Peritoneal/ascites Fluid Appearance Clear Fluid WBC 47.0 Fluid RBC 20.0 H Fluid Tot Cell Count 100 H Fluid Neutrophils 55.0 H Fluid Lymphocytes 20.0 H Fld Monocyte/Macrophag 25 H Fluid Glucose Fluid Total Protein Fluid LDH Fluid Comment Yellow Hep Bs Antigen Hep Bs Antibody Hep B Core IgM Ab Hepatitis C Antibody 01/11/18 01/11/18 07:30 07:30 WBC 6.9 RBC 3.87 Hgb 12.2 Hct 37.7 MCV 97.3 MCH 31.4 H MCHC 32.3 L RDW 15.6 H Plt Count 103 L MPV 10.6 Neut % (Auto) 80.9 H Lymph % (Auto) 6.3 L [place] % (Auto) 12.6 H Eos % (Auto) 0.1 Baso % (Auto) 0.1 Neut # (Auto) 5.6 Lymph # (Auto) 0.4 L [place] # (Auto) 0.9 H Eos # (Auto) 0.0 Baso # (Auto) 0.0 Neutrophils % (Manual) Lymphocytes % (Manual) Monocytes % (Manual) Platelet Estimate Large Platelets Hypochromasia (manual) Anisocytosis (manual) Tear Drop Cells [place] Cells PT INR APTT pO2 VBG pH VBG pCO2 VBG HCO3 VBG Total CO2 VBG O2 Sat (Calc) VBG Base Excess VBG Potassium Glucose Lactate FiO2 Crit Value Called To Crit Value Called By Crit Value Read Back Blood Gas Notified Time Sodium 139 Potassium 4.4 Chloride 100 Carbon Dioxide 24 Anion Gap 19 BUN 80 H Creatinine 6.4 H Est GFR ( Amer) 8 Est GFR (Non-Af Amer) 6 POC Glucose (mg/dL) Random Glucose 93 Calcium 8.1 L Total Bilirubin 0.8 AST 23 ALT 36 Alkaline Phosphatase 81 Troponin I Total Protein 5.4 L Albumin 2.5 L D Globulin 2.9 Albumin/Globulin Ratio 0.9 L Procalcitonin Venous Blood Potassium Fluid Source Fluid Appearance Fluid WBC Fluid RBC Fluid Tot Cell Count Fluid Neutrophils Fluid Lymphocytes Fld Monocyte/Macrophag Fluid Glucose Fluid Total Protein Fluid LDH Fluid Comment Hep Bs Antigen Hep Bs Antibody Hep B Core IgM Ab Hepatitis C Antibody Microbiology 01/09/18 03:15 Blood-Venous Blood Culture - Preliminary NO GROWTH AFTER 48 HOURS 01/09/18 03:33 Blood-Venous Blood Culture - Preliminary NO GROWTH AFTER 48 HOURS 01/09/18 18:36 Naris MRSA Culture (Admit) - Final MRSA NOT DETECTED 01/10/18 14:12 Ascitic Fluid Gram Stain - Final Accession No. : [id number] Patient Name / ID : GWEN JOLLY M / [id number] Exam Date : 01/09/2018 04:47:27 ( Approved ) Study Comment : Sex / Age : F / 77Y Creator : Emilee Kuo MD Dictator : Emilee Kuo MD All Round Logger : Photo Lab Specialist : Emilee Kuo MD Approver2 : Report Date : 01/09/2018 11:17:10 My Comment : PROCEDURE: CT Abdomen and Pelvis without intravenous contrast HISTORY: abdominal pain COMPARISON: 09/11/2017. TECHNIQUE: CT scan of the abdomen and pelvis was performed without administration of intravenous contrast. Oral contrast was not administered. Coronal and sagittal reformatted images were obtained. Radiation dose: Total exam DLP = Total exam DLP = 498.72 mGy-cm. This CT exam was performed using one or more of the following dose reduction techniques: Automated exposure control, adjustment of the mA and/or kV according to patient size, and/or use of iterative reconstruction technique. FINDINGS: LOWER THORAX: Small right pleural effusion and subsegmental atelectasis in the right lung base. There are stable nodules in the right lower lobe, the largest measures 8 mm. There is also stable right pleural calcification. LIVER: The liver is small in size and has a cirrhotic appearance. There are stable scattered calcifications in the liver. GALLBLADDER AND BILE DUCTS: Cholelithiasis. PANCREAS: Normal in size. No gross lesion or ductal dilatation. SPLEEN: Normal in size. ADRENALS: No discrete nodule. KIDNEYS AND URETERS: There are markedly enlarged polycystic kidneys. VASCULATURE: Atherosclerotic calcifications. No aortic aneurysm. BOWEL: The small bowel loops are normal in caliber. The colon is decompressed. No obstruction. No gross mural thickening. APPENDIX: Normal appendix. PERITONEUM: There is large abdominal and pelvic ascites. No free air. LYMPH NODES: No enlarged lymph nodes. BLADDER: Unremarkable. REPRODUCTIVE: Unremarkable. BONES: No acute fracture. Status post left hip arthroplasty. OTHER FINDINGS: None. IMPRESSION: 1. Cirrhosis of liver, large abdominal and pelvic ascites. 2. Small loculated right pleural effusion with pleural calcifications. 3. Stable noncalcified nodules in the right lower lobe, the largest measures 8 mm. In a low risk patient follow-up in 12 month interval and in a high-risk patient follow-up in six-month interval is recommended to assess stability 4. Cholelithiasis. 5. Polycystic kidneys. A preliminary report was provided by [employer]. Accession No. : [id number] Patient Name / ID : GWEN Cronin / [id number] Exam Date : 01/09/2018 06:11:51 ( Approved ) Study Comment : Sex / Age : F / 77Y Creator : Emilee Kuo MD Dictator : Emilee Kuo MD All Round Logger : Photo Lab Specialist : Emilee Kuo MD Approver2 : Report Date : 01/09/2018 08:20:36 My Comment : HISTORY: ESRD COMPARISON: 09/11/2017. FINDINGS: There is stable appearance of right subclavian and axillary endovascular stents. LUNGS: The lungs are well inflated. There is mild pulmonary venous congestion. There are fibrotic changes in the right mid lung. There is interval near complete resolution of right lower lobe airspace disease. There is minimal bibasilar atelectasis. PLEURA: No significant pleural effusion identified, no pneumothorax apparent. Right pleural thickening. CARDIOVASCULAR: There is mild cardiomegaly. There is unfolding of the aorta. Atherosclerotic aortic arch calcifications are present. OSSEOUS STRUCTURES: No significant abnormalities. VISUALIZED UPPER ABDOMEN: Normal. OTHER FINDINGS: None. IMPRESSION: Mild pulmonary venous congestion. No active pulmonary disease. Assessment & Plan (1) Ascites Status: Acute (2) ESRD (end stage renal disease) on dialysis Status: Acute (3) Abdominal pain Status: Acute Priority: High (4) Diarrhea Status: Acute - Assessment and Plan (Free Text) Assessment: A/P- 77 year old female with multiple medical conditions inclduing ESRD On HD, 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 afebrile normal wbc count high procalcitonin but ascitic fluid cell count not c/w sbp. cxr no infiltrates , right lung Pleural effusion reported on CT . blood cx- neg x 2 ascites fluid gram stain - no organism, await cx. plan- check stool c.diff AG x 3 check stool cx. NO SBP based on ascites fluid cell count, await cx of the ascites fluid . d/c IV antibiotics at this time. may place on empiric oral flagyl or vanco pending stool c.diff results. check repeat lactate and procalcitonin level tomm. All labs , imaging and med records reviewed. All above was d/w patient and her questions were all answered. Thank you for allowing me to take part in the care of this patient. ICU time 60 minutes.
--- NOTE | 2018-01-11 13:52 | CP.CCUPN ---
CCU Subjective - Physician Review Subjective (Free Text): Awake and alert, just completed HD (HD was cancelled by daughter yesterday) with removal of approx. 1.5 L. Still on Levophed at 2.5 mcg/min. Intermittent abd pain is less today. Trops have been negative. Other Vitals and I/Os reviewed. ROS: No other pertinent negs or positives on 10+ system review PMSFH: All other Nursing and physician documentation reviewed to date; no new pertinent info noted relevant to current medical problems. EXAM- HEENT: no icterus, no gaze preference, pupils equal and reactive, no icterus NECK: No JVD, supple, carotids equal upstroke bilat/no bruits CHEST: decreased BS bases, no wheezes audible HEART: regular distant, S1S2, no rubs. ABD: soft, no distention, no tympany, no palp tenderness, BS hypoactive. EXT: trace edema bilat. No peripheral/ digital cyanosis, no calf tenderness or palpable cords, distal pulses intact and symmetrical. NEURO: no gross focal motor deficits. SKIN: no rashes, warm and dry. LABS: WBC= 6.9 HGB= 12.2 PLTs= 103K Na= 139 K= 4.4 CL= 100 HCO3=24 BUN/Cr= 80/6.4 BS= 93 Trop= 0.049 PCT= 42.18 Peritoneal fluid : 47 WBCs IMPRESSION / MAJOR PROBLEMS NOW: 1. r/oed SBP; r/o recurrent C Diff colitis infection 2. ESRD on CAHD, with s/p Hyperkalemia / Uremia 3. Chronic recurrent Ascites 2 Cirrhosis (?? Cryptogenic ??) 4. Chronic A fib on AC 5. Chronic Thrombocytopenia on chronic steroids. PLAN: 1. C diff Ag / toxin titers. 2. Repeat Procalcitonin levels, watch trend especially after HD today, given h/o ESRD. 3. As abdominal pain persists, and SBP r/oed, consider checking Lipase. 4. Wean Vasopressors, Midodrine resumed. 5. Could resume Eliquis, no other invasive procedures anticipated. 6. Continue prednisone therapy for chronic thrombocytopenia. CCU Objective - Vital Signs / Intake & Output Vital Signs (Last 4 hours): Vital Signs Pulse BP 01/11/18 13:00 71 126/57 L 01/11/18 12:00 73 109/63 01/11/18 11:00 70 87/44 L 01/11/18 10:00 70 88/48 L Intake and Output (Last 8hrs): Intake & Output 01/10/18 01/11/18 01/11/18 22:59 06:59 14:59 Intake Total 354 0 340 Balance 354 0 340 Weight 100 lb Intake: IV 354 Oral 0 340 Free Water Flush 0 - Medications Active Medications: Active Medications Generic Name Dose Route Start Last Admin Trade Name Freq PRN Reason Stop Dose Admin Acetaminophen 650 mg 01/09/18 17:10 01/09/18 18:18 Tylenol 325mg Tab PO 650 mg Q6 PRN Administration moderate pain level 4-7 Apixaban 2.5 mg 01/09/18 17:45 01/10/18 05:28 Eliquis PO 2.5 mg Q12H [facility] Administration Protocol Cinacalcet 30 mg 01/09/18 09:00 01/11/18 09:36 Sensipar PO 30 mg DAILY [facility] Administration Clorazepate Dipotassium 3.75 mg 01/09/18 22:00 01/10/18 21:36 Tranxene-T PO 3.75 mg HS [facility]QUIN Administration Digoxin 0.25 mg 01/10/18 09:00 01/10/18 09:11 Lanoxin PO 0.25 mg MWF [facility] Administration Famotidine 20 mg 01/10/18 09:00 01/10/18 16:51 Pepcid PO 20 mg BID [facility] Administration Ciprofloxacin 100 mls @ 100 mls/hr 01/10/18 10:15 01/11/18 09:34 Cipro 200mg/100ml D5w IVPB 100 mls/hr DAILY [facility] Administration Protocol Metoprolol Tartrate 25 mg 01/09/18 09:00 01/10/18 09:12 Lopressor PO Not Given DAILY [facility] Midodrine 10 mg 01/10/18 09:00 01/11/18 08:25 Proamatine PO 10 mg Q8 [facility] Administration Multivitamins/Minerals 1 tab 01/09/18 09:00 01/11/18 09:37 Therapeutic-M Tab PO 1 tab DAILY [facility] Administration Ondansetron HCl 4 mg 01/09/18 06:13 Zofran Inj IVP Q6 PRN Nausea/Vomiting Ondansetron HCl 4 mg 01/10/18 09:00 04/05/18 09:37 Zofran Odt PO 4 mg DAILY [facility] Administration Pantoprazole Sodium 40 mg 01/09/18 09:00 01/11/18 09:35 Protonix Ec Tab PO 40 mg DAILY [facility] Administration Prednisone 2.5 mg 01/12/18 17:33 Prednisone Tab PO MOFR [facility] Sevelamer HCl 800 mg 01/09/18 09:00 01/11/18 09:36 Renagel PO 800 mg TID [facility]AQUIN Administration Timolol Maleate 1 drop 01/09/18 09:00 01/11/18 09:37 Timoptic 0.5% Ophth Soln OD 1 drop DAILY [facility] Administration Tramadol HCl 50 mg 01/10/18 15:05 01/11/18 09:39 Ultram PO 50 mg Q6 PRN Administration Pain, moderate (4-7) - Patient Studies Lab Studies: Microbiology Studies 01/09/18 03:15 Blood Culture - Preliminary Blood-Venous NO GROWTH AFTER 48 HOURS 01/09/18 03:33 Blood Culture - Preliminary Blood-Venous NO GROWTH AFTER 48 HOURS 01/09/18 18:36 MRSA Culture (Admit) - Final Naris MRSA NOT DETECTED 01/10/18 14:12 Gram Stain - Final Ascitic Fluid Lab Studies 01/11/18 01/11/18 01/10/18 Range/Units 07:30 07:30 16:30 WBC 6.9 (4.8-10.8) K/uL RBC 3.87 (3.80-5.20) Mil/uL Hgb 12.2 (12.0-16.0) g/dL Hct 37.7 (34.0-47.0) % MCV 97.3 (81.0-99.0) fl MCH 31.4 H (27.0-31.0) pg MCHC 32.3 L (33.0-37.0) g/dL RDW 15.6 H (11.5-14.5) % Plt Count 103 L (130-400) K/uL MPV 10.6 (7.2-11.7) fl Neut % (Auto) 80.9 H (50.0-75.0) % Lymph % (Auto) 6.3 L (20.0-40.0) % Kemper % (Auto) 12.6 H (0.0-10.0) % Eos % (Auto) 0.1 (0.0-4.0) % Baso % (Auto) 0.1 (0.0-2.0) % Neut # (Auto) 5.6 (1.8-7.0) K/uL Lymph # (Auto) 0.4 L (1.0-4.3) K/uL Kemper # (Auto) 0.9 H (0.0-0.8) K/uL Eos # (Auto) 0.0 (0.0-0.7) K/uL Baso # (Auto) 0.0 (0.0-0.2) K/uL Sodium 139 (132-148) mmol/l Potassium 4.4 (3.6-5.0) MMOL/L Chloride 100 (98-107) mmol/L Carbon Dioxide 24 (22-30) mmol/L Anion Gap 19 (10-20) BUN 80 H (7-17) mg/dl Creatinine 6.4 H (0.7-1.2) mg/dl Est GFR ( Amer) 8 Est GFR (Non-Af Amer) 6 Random Glucose 93 (65-105) mg/dL Calcium 8.1 L (8.4-10.2) mg/dL Total Bilirubin 0.8 (0.2-1.3) mg/dl AST 23 (14-36) U/L ALT 36 (9-52) U/L Alkaline Phosphatase 81 (38-126) U/L Troponin I (0.00-0.120) ng/mL Total Protein 5.4 L (6.3-8.2) G/DL Albumin 2.5 L D (3.5-5.0) g/dL Globulin 2.9 (2.2-3.9) gm/dL Albumin/Globulin Ratio 0.9 L (1.0-2.1) Procalcitonin 42.18 H (0.19-0.49) NG/ML Fluid Source Fluid Appearance Fluid WBC Fluid RBC Fluid Tot Cell Count Fluid Neutrophils Fluid Lymphocytes Fld Monocyte/Macrophag Fluid Glucose (NONE ESTABLISHED) mg/dL Fluid Total Protein Fluid LDH (NONE ESTABLISHED) IU Fluid Comment 01/10/18 01/10/18 01/10/18 Range/Units 15:58 14:30 14:12 WBC (4.8-10.8) K/uL RBC (3.80-5.20) Mil/uL Hgb (12.0-16.0) g/dL Hct (34.0-47.0) % MCV (81.0-99.0) fl MCH (27.0-31.0) pg MCHC (33.0-37.0) g/dL RDW (11.5-14.5) % Plt Count (130-400) K/uL MPV (7.2-11.7) fl Neut % (Auto) (50.0-75.0) % Lymph % (Auto) (20.0-40.0) % Kemper % (Auto) (0.0-10.0) % Eos % (Auto) (0.0-4.0) % Baso % (Auto) (0.0-2.0) % Neut # (Auto) (1.8-7.0) K/uL Lymph # (Auto) (1.0-4.3) K/uL Kemper # (Auto) (0.0-0.8) K/uL Eos # (Auto) (0.0-0.7) K/uL Baso # (Auto) (0.0-0.2) K/uL Sodium (132-148) mmol/l Potassium (3.6-5.0) MMOL/L Chloride (98-107) mmol/L Carbon Dioxide (22-30) mmol/L Anion Gap (10-20) BUN (7-17) mg/dl Creatinine (0.7-1.2) mg/dl Est GFR ( Amer) Est GFR (Non-Af Amer) Random Glucose (65-105) mg/dL Calcium (8.4-10.2) mg/dL Total Bilirubin (0.2-1.3) mg/dl AST (14-36) U/L ALT (9-52) U/L Alkaline Phosphatase (38-126) U/L Troponin I 0.0490 (0.00-0.120) ng/mL Total Protein (6.3-8.2) G/DL Albumin (3.5-5.0) g/dL Globulin (2.2-3.9) gm/dL Albumin/Globulin Ratio (1.0-2.1) Procalcitonin (0.19-0.49) NG/ML Fluid Source Peritoneal/ascites Fluid Appearance Clear Fluid WBC 47.0 Fluid RBC 20.0 H Fluid Tot Cell Count 100 H Fluid Neutrophils 55.0 H Fluid Lymphocytes 20.0 H Fld Monocyte/Macrophag 25 H Fluid Glucose 91 (NONE ESTABLISHED) mg/dL Fluid Total Protein < 2.0 Fluid LDH 524 (NONE ESTABLISHED) IU Fluid Comment Yellow 01/10/18 Range/Units 14:12 WBC (4.8-10.8) K/uL RBC (3.80-5.20) Mil/uL Hgb (12.0-16.0) g/dL Hct (34.0-47.0) % MCV (81.0-99.0) fl MCH (27.0-31.0) pg MCHC (33.0-37.0) g/dL RDW (11.5-14.5) % Plt Count (130-400) K/uL MPV (7.2-11.7) fl Neut % (Auto) (50.0-75.0) % Lymph % (Auto) (20.0-40.0) % Kemper % (Auto) (0.0-10.0) % Eos % (Auto) (0.0-4.0) % Baso % (Auto) (0.0-2.0) % Neut # (Auto) (1.8-7.0) K/uL Lymph # (Auto) (1.0-4.3) K/uL Kemper # (Auto) (0.0-0.8) K/uL Eos # (Auto) (0.0-0.7) K/uL Baso # (Auto) (0.0-0.2) K/uL Sodium (132-148) mmol/l Potassium (3.6-5.0) MMOL/L Chloride (98-107) mmol/L Carbon Dioxide (22-30) mmol/L Anion Gap (10-20) BUN (7-17) mg/dl Creatinine (0.7-1.2) mg/dl Est GFR ( Amer) Est GFR (Non-Af Amer) Random Glucose (65-105) mg/dL Calcium (8.4-10.2) mg/dL Total Bilirubin (0.2-1.3) mg/dl AST (14-36) U/L ALT (9-52) U/L Alkaline Phosphatase (38-126) U/L Troponin I (0.00-0.120) ng/mL Total Protein (6.3-8.2) G/DL Albumin (3.5-5.0) g/dL Globulin (2.2-3.9) gm/dL Albumin/Globulin Ratio (1.0-2.1) Procalcitonin (0.19-0.49) NG/ML Fluid Source Cancelled Fluid Appearance Cancelled Fluid WBC Cancelled Fluid RBC Cancelled Fluid Tot Cell Count Cancelled Fluid Neutrophils Cancelled Fluid Lymphocytes Cancelled Fld Monocyte/Macrophag Cancelled Fluid Glucose (NONE ESTABLISHED) mg/dL Fluid Total Protein Cancelled Fluid LDH (NONE ESTABLISHED) IU Fluid Comment Cancelled Laboratory Results - last 24 hr 01/10/18 01/10/18 01/10/18 14:12 14:12 14:30 WBC RBC Hgb Hct MCV MCH MCHC RDW Plt Count MPV Neut % (Auto) Lymph % (Auto) Kemper % (Auto) Eos % (Auto) Baso % (Auto) Neut # (Auto) Lymph # (Auto) Kemper # (Auto) Eos # (Auto) Baso # (Auto) Sodium Potassium Chloride Carbon Dioxide Anion Gap BUN Creatinine Est GFR ( Amer) Est GFR (Non-Af Amer) Random Glucose Calcium Total Bilirubin AST ALT Alkaline Phosphatase Troponin I Total Protein Albumin Globulin Albumin/Globulin Ratio Procalcitonin Fluid Source Cancelled Peritoneal/ascites Fluid Appearance Cancelled Clear Fluid WBC Cancelled 47.0 Fluid RBC Cancelled 20.0 H Fluid Tot Cell Count Cancelled 100 H Fluid Neutrophils Cancelled 55.0 H Fluid Lymphocytes Cancelled 20.0 H Fld Monocyte/Macrophag Cancelled 25 H Fluid Glucose 91 Fluid Total Protein Cancelled < 2.0 Fluid LDH 524 Fluid Comment Cancelled Yellow 01/10/18 01/10/18 01/11/18 15:58 16:30 07:30 WBC 6.9 RBC 3.87 Hgb 12.2 Hct 37.7 MCV 97.3 MCH 31.4 H MCHC 32.3 L RDW 15.6 H Plt Count 103 L MPV 10.6 Neut % (Auto) 80.9 H Lymph % (Auto) 6.3 L Kemper % (Auto) 12.6 H Eos % (Auto) 0.1 Baso % (Auto) 0.1 Neut # (Auto) 5.6 Lymph # (Auto) 0.4 L Kemper # (Auto) 0.9 H Eos # (Auto) 0.0 Baso # (Auto) 0.0 Sodium Potassium Chloride Carbon Dioxide Anion Gap BUN Creatinine Est GFR ( Amer) Est GFR (Non-Af Amer) Random Glucose Calcium Total Bilirubin AST ALT Alkaline Phosphatase Troponin I 0.0490 Total Protein Albumin Globulin Albumin/Globulin Ratio Procalcitonin 42.18 H Fluid Source Fluid Appearance Fluid WBC Fluid RBC Fluid Tot Cell Count Fluid Neutrophils Fluid Lymphocytes Fld Monocyte/Macrophag Fluid Glucose Fluid Total Protein Fluid LDH Fluid Comment 01/11/18 07:30 WBC RBC Hgb Hct MCV MCH MCHC RDW Plt Count MPV Neut % (Auto) Lymph % (Auto) Kemper % (Auto) Eos % (Auto) Baso % (Auto) Neut # (Auto) Lymph # (Auto) Kemper # (Auto) Eos # (Auto) Baso # (Auto) Sodium 139 Potassium 4.4 Chloride 100 Carbon Dioxide 24 Anion Gap 19 BUN 80 H Creatinine 6.4 H Est GFR ( Amer) 8 Est GFR (Non-Af Amer) 6 Random Glucose 93 Calcium 8.1 L Total Bilirubin 0.8 AST 23 ALT 36 Alkaline Phosphatase 81 Troponin I Total Protein 5.4 L Albumin 2.5 L D Globulin 2.9 Albumin/Globulin Ratio 0.9 L Procalcitonin Fluid Source Fluid Appearance Fluid WBC Fluid RBC Fluid Tot Cell Count Fluid Neutrophils Fluid Lymphocytes Fld Monocyte/Macrophag Fluid Glucose Fluid Total Protein Fluid LDH Fluid Comment Critical Care Progress Note - Nutrition Nutrition: Nutrition Category Date Time Status Renal Diet [DIET] Diets 01/09/18 Dinner Active
[2018-01-11] MEDS: Vancomycin 500 mg (Oral/Rectal USE) PO SCH (16:45)
--- NOTE | 2018-01-11 16:49 | CP.PCM.PN ---
Subjective - Date & Time of Evaluation Date of Evaluation: 01/11/18 Time of Evaluation: 16:47 - Subjective Subjective: Nephrology Consultation: Assessment: stable Ascites, missed HD with Hyperkalemia End stage renal disease on hemodialysis (MWF) via AVF with missed HD. Anemia, Hyperphosphatemia, Secondary hyperparathyroidism Plan: pt had HD today, she tolerated well. Continue with Nephrovite 1 tab/day. PRBC as needed for anemia. not on OSCAR as last Hb 12.2 Continue with phos binders, check phos level Patient not on RAAS tashi as BP low Glycemic control, Dialysis consistent diet Further work up/management as per primary team Dose meds/antibiotics (if needed) for ESRD status. Avoid fleets enema/magnesium based laxatives. Thanks for allowing me to participate in care of your patient. Will follow patient with you. Please call if any Qs Dr Jas Hughes Office: [phone] ROS: denies CP/SOB/nausea. rest all other neg except pain abdomen Physical Examination: General Appearance: Comfortable, in no acute respiratory distress, co-operative . Vitals reviewed and noted as below Head; Atraumatic, normocephalic ENT: no ulcers no thrush. Tongue is midline. Oropharynx: no rash or ulcers. EYES: Pupils are equal, round and reactive to light accommodation. Eye muscles and extraocular movement intact. Sclera is anicteric. Neck; supple no lymphadenopathy, no thyromegaly or bruit Lungs: Normal respiratory rate/effort. Breath sounds bilateral equal and with few basal crackles Heart: Normal rate. s1s2 normal. No rub or gallop. Extremities: no edema. No varicose veins Neurological: Patient is alert, awake and oriented. No focal deficit. Strength bilateral appropriate and equal Skin: Warm and dry. Normal turgor. No rash. Palpitation: Normal elasticity for age Abdomen: Abdomen is soft. Bowel sounds +. There is mild abdominal tenderness, no guarding/rigidity or organomegaly. distended with ascitic Psych: lack insight and has normal affect MSK: no joint tenderness or swelling. Digits and nails normal, no deformity : kidney or bladder not palpable Access: AVF Labs/imaging reviewed. Past medical history, past surgical history, family history, social history, allergy reviewed and noted as below Objective - Vital Signs/Intake and Output Vital Signs (last 24 hours): Temp Pulse Resp BP Pulse Ox 98.5 F 71 16 93/42 L 98 01/11/18 16:00 01/11/18 16:00 01/11/18 16:00 01/11/18 16:00 01/11/18 16:00 Intake and Output: 01/11/18 01/11/18 06:59 18:59 Intake Total 100 340 Balance 100 340 - Medications Medications: Current Medications Acetaminophen (Tylenol 325mg Tab) 650 mg PO Q6 PRN PRN Reason: moderate pain level 4-7 Last Admin: 01/09/18 18:18 Dose: 650 mg Apixaban (Eliquis) 2.5 mg PO Q12H [facility] PRN Reason: Protocol Last Admin: 01/11/18 16:45 Dose: 2.5 mg Cinacalcet (Sensipar) 30 mg PO DAILY [facility] Last Admin: 01/11/18 09:36 Dose: 30 mg Clorazepate Dipotassium (Tranxene-T) 3.75 mg PO HS [facility] Last Admin: 01/10/18 21:36 Dose: 3.75 mg Digoxin (Lanoxin) 0.25 mg PO MWF [facility] Last Admin: 01/10/18 09:11 Dose: 0.25 mg Famotidine (Pepcid) 20 mg PO BID [facility] Last Admin: 01/11/18 16:43 Dose: 20 mg Metoprolol Tartrate (Lopressor) 25 mg PO DAILY [facility] Last Admin: 01/10/18 09:12 Dose: Not Given Midodrine (Proamatine) 10 mg PO Q8 [facility] Last Admin: 01/11/18 16:44 Dose: 10 mg Multivitamins/Minerals (Therapeutic-M Tab) 1 tab PO DAILY [facility] Last Admin: 01/11/18 09:37 Dose: 1 tab Ondansetron HCl (Zofran Inj) 4 mg IVP Q6 PRN PRN Reason: Nausea/Vomiting Ondansetron HCl (Zofran Odt) 4 mg PO DAILY [facility] Last Admin: 01/11/18 09:37 Dose: 4 mg Pantoprazole Sodium (Protonix Ec Tab) 40 mg PO DAILY [facility] Last Admin: 01/11/18 09:35 Dose: 40 mg Prednisone (Prednisone Tab) 2.5 mg PO MOFR [facility] Sevelamer HCl (Renagel) 800 mg PO TID [facility] Last Admin: 01/11/18 16:44 Dose: 800 mg Timolol Maleate (Timoptic 0.5% Ophth Soln) 1 drop OD DAILY [facility] Last Admin: 01/11/18 09:37 Dose: 1 drop Tramadol HCl (Ultram) 50 mg PO Q6 PRN PRN Reason: Pain, moderate (4-7) Last Admin: 01/11/18 09:39 Dose: 50 mg Vancomycin HCl (Vancocin (Oral/Rectal Use)) 250 mg PO Q8 [facility] PRN Reason: Protocol Last Admin: 01/11/18 16:45 Dose: 250 mg - Labs Labs: 01/11/18 07:30 01/11/18 07:30 PT 12.6 Seconds (9.8-13.1) 01/09/18 14:00 INR 1.1 (0.9-1.2) 01/09/18 14:00 APTT 23.0 Seconds (25.6-37.1) L 01/09/18 14:00
[2018-01-12] MEDS: Vancomycin 500 mg (Oral/Rectal USE) PO SCH ×3 (00:23→17:55)
[2018-01-12 05:54] LABS: BASO % 0.2 % (0.0-2.0); EOS % 0.1 % (0.0-4.0); HEMOGLOBIN 11.3 g/dL (12.0-16.0); LYMPH # 0.3 K/uL (1.0-4.3); LYMPH % 6.1 % (20.0-40.0); MEAN CELL VOLUME 97.3 fl (81.0-99.0); MEAN CORPUSCULAR HEMOGLOBIN 31.2 pg (27.0-31.0); MEAN CORPUSCULAR HGB CONC 32.1 g/dL (33.0-37.0); MEAN PLATELET VOLUME 10.9 fl (7.2-11.7); MONO # 0.6 K/uL (0.0-0.8); NEUT # 4.2 K/uL (1.8-7.0); NEUT % 81.6 % (50.0-75.0); NRBC % 0.1 % (0.0-0.0); PLATELET COUNT 110 K/uL (130-400); RBC 3.62 Mil/uL (3.80-5.20); RED CELL DISTRIBUTION WIDTH 15.5 % (11.5-14.5); WHITE BLOOD COUNT 5.2 K/uL (4.8-10.8)
[2018-01-12 06:22] LABS: CALCIUM 7.8 mg/dL (8.4-10.2)
[2018-01-12 08:30] LABS: LYMPHOCYTE 10 % (20-50); MONOCYTE 11 % (0-10); NEUTROPHIL 79 % (42-75); PLATELET ESTIMATE SLIGHTLY DECREASED (NORMAL); TOTAL CELLS COUNTED 100
[2018-01-12 08:33] LABS: ANISOCYTOSIS SLIGHT; LARGE PLATELETS PRESENT; POIKILOCYTOSIS SLIGHT; TEARDROP CELLS SLIGHT
[2018-01-12] MEDS: Digoxin 250 mcg (0.25 mg) Tab PO SCH (09:42)
[2018-01-12] MEDS: Pantoprazole 40 mg EC Tab PO SCH (09:45)
[2018-01-12] MEDS: Multivitamin With Minerals Tab PO SCH (09:46)
--- NOTE | 2018-01-12 10:21 | CP.PCM.PN ---
Subjective - Date & Time of Evaluation Date of Evaluation: 01/12/18 Time of Evaluation: 10:18 - Subjective Subjective: Patient complaining of abdominal pain complaining of generalized weakness. Daughter at the bedside Patient awake and conscious Objective - Vital Signs/Intake and Output Vital Signs (last 24 hours): Temp Pulse Resp BP Pulse Ox 98.5 F 89 16 83/43 L 97 01/12/18 08:00 01/12/18 08:00 01/12/18 08:00 01/12/18 08:00 01/12/18 08:00 - Medications Medications: Current Medications Acetaminophen (Tylenol 325mg Tab) 650 mg PO Q6 PRN PRN Reason: moderate pain level 4-7 Last Admin: 01/09/18 18:18 Dose: 650 mg Apixaban (Eliquis) 2.5 mg PO Q12H [facility] PRN Reason: Protocol Last Admin: 01/12/18 06:06 Dose: 2.5 mg Cinacalcet (Sensipar) 30 mg PO DAILY [facility] Last Admin: 01/12/18 09:46 Dose: 30 mg Clorazepate Dipotassium (Tranxene-T) 3.75 mg PO HS [facility] Last Admin: 01/11/18 22:20 Dose: Not Given Digoxin (Lanoxin) 0.25 mg PO MWF [facility] Last Admin: 01/12/18 09:42 Dose: 0.25 mg Famotidine (Pepcid) 20 mg PO BID [facility] Last Admin: 01/12/18 09:44 Dose: 20 mg Metoprolol Tartrate (Lopressor) 25 mg PO DAILY [facility] Last Admin: 01/10/18 09:12 Dose: Not Given Midodrine (Proamatine) 10 mg PO Q8 [facility] Last Admin: 01/12/18 09:45 Dose: 10 mg Multivitamins/Minerals (Therapeutic-M Tab) 1 tab PO DAILY [facility] Last Admin: 01/12/18 09:46 Dose: 1 tab Ondansetron HCl (Zofran Inj) 4 mg IVP Q6 PRN PRN Reason: Nausea/Vomiting Ondansetron HCl (Zofran Odt) 4 mg PO DAILY [facility] Last Admin: 01/12/18 10:06 Dose: Not Given Ondansetron HCl (Zofran Odt) 4 mg PO Q8H PRN PRN Reason: Nausea/Vomiting Last Admin: 01/11/18 17:55 Dose: 4 mg Pantoprazole Sodium (Protonix Ec Tab) 40 mg PO DAILY [facility] Last Admin: 01/12/18 09:45 Dose: 40 mg Prednisone (Prednisone Tab) 2.5 mg PO MOFR [facility] Sevelamer HCl (Renagel) 800 mg PO TID [facility] Last Admin: 01/12/18 09:46 Dose: 800 mg Timolol Maleate (Timoptic 0.5% Ophth Soln) 1 drop OD DAILY [facility] Last Admin: 01/12/18 09:47 Dose: 1 drop Tramadol HCl (Ultram) 50 mg PO Q6 PRN PRN Reason: Pain, moderate (4-7) Last Admin: 01/12/18 09:51 Dose: 50 mg Vancomycin HCl (Vancocin (Oral/Rectal Use)) 250 mg PO Q8 [facility] PRN Reason: Protocol Last Admin: 01/12/18 09:48 Dose: 250 mg - Labs Labs: 01/12/18 05:10 01/12/18 05:10 PT 12.6 Seconds (9.8-13.1) 01/09/18 14:00 INR 1.1 (0.9-1.2) 01/09/18 14:00 APTT 23.0 Seconds (25.6-37.1) L 01/09/18 14:00 - Constitutional Appears: No Acute Distress - ENT Exam ENT Exam: Mucous Membranes Moist - Neck Exam Neck Exam: absent: Lymphadenopathy - Respiratory Exam Respiratory Exam: absent: Chest Wall Tenderness - Cardiovascular Exam Cardiovascular Exam: absent: Rubs - GI/Abdominal Exam GI & Abdominal Exam: Soft, Normal Bowel Sounds - Extremities Exam Extremities Exam: absent: Calf Tenderness - Back Exam Back Exam: absent: CVA tenderness (L), CVA tenderness (R) - Neurological Exam Neurological Exam: Alert - Psychiatric Exam Psychiatric exam: Normal Affect - Skin Skin Exam: absent: Cyanosis Assessment and Plan (1) Abdominal pain Status: Acute (2) Ascites Status: Acute (3) ESRD (end stage renal disease) on dialysis Assessment & Plan: #1End stage renal disease Having difficulty to dialysis because of the hypotension despite she was given albumin and dopamin. receiving HD tomorrow and then MWF for next week to give more albumin. #2 ascitis status post paracentesis #3 abdominal pain improving somewhat #4 chf history and volume overloaded. #5 H/O pericardial effusion,need to do ECHo as soon as possible. #6 hypotension #7 hypoalbuminemia patient need nutritional counseling with the dietitian. #8 history of hyperphosphatemia and secondary hyperparathyroidism #9 debility Status: Acute
--- NOTE | 2018-01-12 11:15 | CP.PCM.PN ---
Subjective - Date & Time of Evaluation Date of Evaluation: 01/12/18 Time of Evaluation: 13:00 - Subjective Subjective: ID Note- Pt. seen and examined today in ICU. resting comfortably. she denies any fever or chills. states feels better today. still has diarrhea Objective - Vital Signs/Intake and Output Vital Signs (last 24 hours): Temp Pulse Resp BP Pulse Ox 98.5 F 89 16 83/43 L 97 01/12/18 08:00 01/12/18 08:00 01/12/18 08:00 01/12/18 08:00 01/12/18 08:00 - Medications Medications: Current Medications Acetaminophen (Tylenol 325mg Tab) 650 mg PO Q6 PRN PRN Reason: moderate pain level 4-7 Last Admin: 01/09/18 18:18 Dose: 650 mg Apixaban (Eliquis) 2.5 mg PO Q12H [facility] PRN Reason: Protocol Last Admin: 01/12/18 06:06 Dose: 2.5 mg Cinacalcet (Sensipar) 30 mg PO DAILY [facility] Last Admin: 01/12/18 09:46 Dose: 30 mg Clorazepate Dipotassium (Tranxene-T) 3.75 mg PO HS [facility] Last Admin: 01/11/18 22:20 Dose: Not Given Digoxin (Lanoxin) 0.25 mg PO MWF [facility] Last Admin: 01/12/18 09:42 Dose: 0.25 mg Famotidine (Pepcid) 20 mg PO BID [facility] Last Admin: 01/12/18 09:44 Dose: 20 mg Metoprolol Tartrate (Lopressor) 25 mg PO DAILY [facility] Last Admin: 01/10/18 09:12 Dose: Not Given Midodrine (Proamatine) 10 mg PO Q8 [facility] Last Admin: 01/12/18 09:45 Dose: 10 mg Multivitamins/Minerals (Therapeutic-M Tab) 1 tab PO DAILY [facility] Last Admin: 01/12/18 09:46 Dose: 1 tab Ondansetron HCl (Zofran Inj) 4 mg IVP Q6 PRN PRN Reason: Nausea/Vomiting Ondansetron HCl (Zofran Odt) 4 mg PO DAILY [facility] Last Admin: 01/12/18 10:06 Dose: Not Given Ondansetron HCl (Zofran Odt) 4 mg PO Q8H PRN PRN Reason: Nausea/Vomiting Last Admin: 01/11/18 17:55 Dose: 4 mg Pantoprazole Sodium (Protonix Ec Tab) 40 mg PO DAILY [facility] Last Admin: 01/12/18 09:45 Dose: 40 mg Prednisone (Prednisone Tab) 2.5 mg PO MOFR [facility] Sevelamer HCl (Renagel) 800 mg PO TID [facility] Last Admin: 01/12/18 09:46 Dose: 800 mg Timolol Maleate (Timoptic 0.5% Ophth Soln) 1 drop OD DAILY [facility] Last Admin: 01/12/18 09:47 Dose: 1 drop Tramadol HCl (Ultram) 50 mg PO Q6 PRN PRN Reason: Pain, moderate (4-7) Last Admin: 01/12/18 09:51 Dose: 50 mg Vancomycin HCl (Vancocin (Oral/Rectal Use)) 250 mg PO Q8 [facility] PRN Reason: Protocol Last Admin: 01/12/18 09:48 Dose: 250 mg - Labs Labs: - Additional Findings Additional findings: - Constitutional Appears: Non-toxic, No Acute Distress - Head Exam Head Exam: ATRAUMATIC - Eye Exam Eye Exam: EOMI, PERRL - ENT Exam ENT Exam: Normal Oropharynx - Neck Exam Neck exam: Positive for: Full Rom - Respiratory Exam Respiratory Exam: Clear to Auscultation Bilateral, NORMAL BREATHING PATTERN - Cardiovascular Exam Cardiovascular Exam: RRR, +S1, +S2 - GI/Abdominal Exam Additional comments: soft, distended, + ascites minimal tenderness throughout abdomen but no guarding, no rebound + BS - Extremities Exam Additional comments: no edema B/L LE Right arm HD access site , clean , no erythema - Neurological Exam Neurological exam: Alert, Oriented x 3 Laboratory Results - last 72 hr 01/09/18 01/09/18 01/09/18 11:05 11:05 16:57 WBC RBC Hgb Hct MCV MCH MCHC RDW Plt Count MPV Neut % (Auto) Lymph % (Auto) Walsh % (Auto) Eos % (Auto) Baso % (Auto) Neut # (Auto) Lymph # (Auto) Walsh # (Auto) Eos # (Auto) Baso # (Auto) Neutrophils % (Manual) Lymphocytes % (Manual) Monocytes % (Manual) Platelet Estimate Large Platelets Poikilocytosis (manual Anisocytosis (manual) Tear Drop Cells Sodium Potassium Chloride Carbon Dioxide Anion Gap BUN Creatinine Est GFR ( Amer) Est GFR (Non-Af Amer) POC Glucose (mg/dL) 77 Random Glucose Calcium Total Bilirubin AST ALT Alkaline Phosphatase Troponin I Total Protein Albumin Globulin Albumin/Globulin Ratio Procalcitonin Fluid Source Fluid Appearance Fluid WBC Fluid RBC Fluid Tot Cell Count Fluid Neutrophils Fluid Lymphocytes Fld Monocyte/Macrophag Fluid Glucose Fluid Total Protein Fluid LDH Fluid Comment Digoxin Hep Bs Antigen Negative Hep Bs Antibody Positive Hep B Core IgM Ab Negative Hepatitis C Antibody Negative 01/10/18 01/10/18 01/10/18 04:20 04:20 14:12 WBC 5.6 RBC 3.61 L Hgb 11.4 L D Hct 34.9 MCV 96.5 MCH 31.4 H MCHC 32.6 L RDW 15.9 H Plt Count 95 L MPV Neut % (Auto) Lymph % (Auto) Walsh % (Auto) Eos % (Auto) Baso % (Auto) Neut # (Auto) Lymph # (Auto) Walsh # (Auto) Eos # (Auto) Baso # (Auto) Neutrophils % (Manual) Lymphocytes % (Manual) Monocytes % (Manual) Platelet Estimate Large Platelets Poikilocytosis (manual Anisocytosis (manual) Tear Drop Cells Sodium 141 Potassium 4.0 Chloride 99 Carbon Dioxide 29 Anion Gap 17 BUN 62 H Creatinine 5.5 H Est GFR ( Amer) 9 Est GFR (Non-Af Amer) 8 POC Glucose (mg/dL) Random Glucose 88 Calcium 8.4 Total Bilirubin AST ALT Alkaline Phosphatase Troponin I Total Protein Albumin Globulin Albumin/Globulin Ratio Procalcitonin Fluid Source Cancelled Fluid Appearance Cancelled Fluid WBC Cancelled Fluid RBC Cancelled Fluid Tot Cell Count Cancelled Fluid Neutrophils Cancelled Fluid Lymphocytes Cancelled Fld Monocyte/Macrophag Cancelled Fluid Glucose Fluid Total Protein Cancelled Fluid LDH Fluid Comment Cancelled Digoxin Hep Bs Antigen Hep Bs Antibody Hep B Core IgM Ab Hepatitis C Antibody 01/10/18 01/10/18 01/10/18 14:12 14:30 15:58 WBC RBC Hgb Hct MCV MCH MCHC RDW Plt Count MPV Neut % (Auto) Lymph % (Auto) Walsh % (Auto) Eos % (Auto) Baso % (Auto) Neut # (Auto) Lymph # (Auto) Walsh # (Auto) Eos # (Auto) Baso # (Auto) Neutrophils % (Manual) Lymphocytes % (Manual) Monocytes % (Manual) Platelet Estimate Large Platelets Poikilocytosis (manual Anisocytosis (manual) Tear Drop Cells Sodium Potassium Chloride Carbon Dioxide Anion Gap BUN Creatinine Est GFR ( Amer) Est GFR (Non-Af Amer) POC Glucose (mg/dL) Random Glucose Calcium Total Bilirubin AST ALT Alkaline Phosphatase Troponin I 0.0490 Total Protein Albumin Globulin Albumin/Globulin Ratio Procalcitonin Fluid Source Peritoneal/ascites Fluid Appearance Clear Fluid WBC 47.0 Fluid RBC 20.0 H Fluid Tot Cell Count 100 H Fluid Neutrophils 55.0 H Fluid Lymphocytes 20.0 H Fld Monocyte/Macrophag 25 H Fluid Glucose 91 Fluid Total Protein < 2.0 Fluid LDH 524 Fluid Comment Yellow Digoxin Hep Bs Antigen Hep Bs Antibody Hep B Core IgM Ab Hepatitis C Antibody 01/10/18 01/11/18 01/11/18 16:30 07:30 07:30 WBC 6.9 RBC 3.87 Hgb 12.2 Hct 37.7 MCV 97.3 MCH 31.4 H MCHC 32.3 L RDW 15.6 H Plt Count 103 L MPV 10.6 Neut % (Auto) 80.9 H Lymph % (Auto) 6.3 L Walsh % (Auto) 12.6 H Eos % (Auto) 0.1 Baso % (Auto) 0.1 Neut # (Auto) 5.6 Lymph # (Auto) 0.4 L Walsh # (Auto) 0.9 H Eos # (Auto) 0.0 Baso # (Auto) 0.0 Neutrophils % (Manual) Lymphocytes % (Manual) Monocytes % (Manual) Platelet Estimate Large Platelets Poikilocytosis (manual Anisocytosis (manual) Tear Drop Cells Sodium 139 Potassium 4.4 Chloride 100 Carbon Dioxide 24 Anion Gap 19 BUN 80 H Creatinine 6.4 H Est GFR ( Amer) 8 Est GFR (Non-Af Amer) 6 POC Glucose (mg/dL) Random Glucose 93 Calcium 8.1 L Total Bilirubin 0.8 AST 23 ALT 36 Alkaline Phosphatase 81 Troponin I Total Protein 5.4 L Albumin 2.5 L D Globulin 2.9 Albumin/Globulin Ratio 0.9 L Procalcitonin 42.18 H Fluid Source Fluid Appearance Fluid WBC Fluid RBC Fluid Tot Cell Count Fluid Neutrophils Fluid Lymphocytes Fld Monocyte/Macrophag Fluid Glucose Fluid Total Protein Fluid LDH Fluid Comment Digoxin Hep Bs Antigen Hep Bs Antibody Hep B Core IgM Ab Hepatitis C Antibody 01/11/18 01/11/18 01/12/18 14:00 15:50 05:10 WBC 5.2 RBC 3.62 L Hgb 11.3 L Hct 35.3 MCV 97.3 MCH 31.2 H MCHC 32.1 L RDW 15.5 H Plt Count 110 L MPV 10.9 Neut % (Auto) 81.6 H Lymph % (Auto) 6.1 L Walsh % (Auto) 12.0 H Eos % (Auto) 0.1 Baso % (Auto) 0.2 Neut # (Auto) 4.2 Lymph # (Auto) 0.3 L Walsh # (Auto) 0.6 Eos # (Auto) 0.0 Baso # (Auto) 0.0 Neutrophils % (Manual) 79 H Lymphocytes % (Manual) 10 L Monocytes % (Manual) 11 H Platelet Estimate Slightly decreased L Large Platelets Present Poikilocytosis (manual Slight Anisocytosis (manual) Slight Tear Drop Cells Slight Sodium Potassium Chloride Carbon Dioxide Anion Gap BUN Creatinine Est GFR ( Amer) Est GFR (Non-Af Amer) POC Glucose (mg/dL) Random Glucose Calcium Total Bilirubin AST ALT Alkaline Phosphatase Troponin I 0.0540 Total Protein Albumin Globulin Albumin/Globulin Ratio Procalcitonin 45.63 H Fluid Source Fluid Appearance Fluid WBC Fluid RBC Fluid Tot Cell Count Fluid Neutrophils Fluid Lymphocytes Fld Monocyte/Macrophag Fluid Glucose Fluid Total Protein Fluid LDH Fluid Comment Digoxin Hep Bs Antigen Hep Bs Antibody Hep B Core IgM Ab Hepatitis C Antibody 01/12/18 01/12/18 05:10 10:30 WBC RBC Hgb Hct MCV MCH MCHC RDW Plt Count MPV Neut % (Auto) Lymph % (Auto) Walsh % (Auto) Eos % (Auto) Baso % (Auto) Neut # (Auto) Lymph # (Auto) Walsh # (Auto) Eos # (Auto) Baso # (Auto) Neutrophils % (Manual) Lymphocytes % (Manual) Monocytes % (Manual) Platelet Estimate Large Platelets Poikilocytosis (manual Anisocytosis (manual) Tear Drop Cells Sodium 135 Potassium 4.0 Chloride 97 L Carbon Dioxide 27 Anion Gap 15 BUN 54 H Creatinine 4.6 H Est GFR ( Amer) 11 Est GFR (Non-Af Amer) 9 POC Glucose (mg/dL) Random Glucose 73 Calcium 7.8 L Total Bilirubin AST ALT Alkaline Phosphatase Troponin I Total Protein Albumin Globulin Albumin/Globulin Ratio Procalcitonin Fluid Source Fluid Appearance Fluid WBC Fluid RBC Fluid Tot Cell Count Fluid Neutrophils Fluid Lymphocytes Fld Monocyte/Macrophag Fluid Glucose Fluid Total Protein Fluid LDH Fluid Comment Digoxin 1.8 Hep Bs Antigen Hep Bs Antibody Hep B Core IgM Ab Hepatitis C Antibody Microbiology 01/10/18 14:12 Ascitic Fluid Gram Stain - Final 01/10/18 14:12 Ascitic Fluid Body Fluid Culture - Preliminary NO GROWTH AFTER 2 DAYS 01/09/18 03:15 Blood-Venous Blood Culture - Preliminary NO GROWTH AFTER 3 DAYS 01/09/18 03:33 Blood-Venous Blood Culture - Preliminary NO GROWTH AFTER 3 DAYS 01/09/18 18:36 Naris MRSA Culture (Admit) - Final MRSA NOT DETECTED Assessment and Plan (1) Ascites Status: Acute (2) ESRD (end stage renal disease) on dialysis Status: Acute (3) Abdominal pain Status: Acute (4) Diarrhea Status: Acute - Assessment and Plan (Free Text) Assessment: A/P- 77 year old female with multiple medical conditions inclduing ESRD On HD, 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 afebrile normal wbc count high procalcitonin but ascitic fluid cell count not c/w sbp. cxr no infiltrates , right lung Pleural effusion reported on CT . blood cx- neg x 2 ascites fluid gram stain - Cx negative plan- check stool c.diff AG x 3 check stool cx. NO SBP based on ascites fluid cell count, await cx of the ascites fluid . continue with empiric vanco pending stool c.diff results. All labs , imaging and med records reviewed. All above was d/w patient and her questions were all answered. ICU time 45 minutes.
--- NOTE | 2018-01-12 11:30 | CP.PCM.PN ---
Subjective - Date & Time of Evaluation Date of Evaluation: 01/12/18 Time of Evaluation: 10:45 - Subjective Subjective: No fever abd pain better today vomited last night denies CP no SOB BP better today - now off Levophed Objective - Vital Signs/Intake and Output Vital Signs (last 24 hours): Temp Pulse Resp BP Pulse Ox 98.5 F 89 16 83/43 L 97 01/12/18 08:00 01/12/18 08:00 01/12/18 08:00 01/12/18 08:00 01/12/18 08:00 - Medications Medications: Current Medications Acetaminophen (Tylenol 325mg Tab) 650 mg PO Q6 PRN PRN Reason: moderate pain level 4-7 Last Admin: 01/09/18 18:18 Dose: 650 mg Apixaban (Eliquis) 2.5 mg PO Q12H [facility] PRN Reason: Protocol Last Admin: 01/12/18 06:06 Dose: 2.5 mg Cinacalcet (Sensipar) 30 mg PO DAILY [facility] Last Admin: 01/12/18 09:46 Dose: 30 mg Clorazepate Dipotassium (Tranxene-T) 3.75 mg PO HS [facility] Last Admin: 01/11/18 22:20 Dose: Not Given Digoxin (Lanoxin) 0.25 mg PO MWF [facility] Last Admin: 01/12/18 09:42 Dose: 0.25 mg Famotidine (Pepcid) 20 mg PO BID [facility] Last Admin: 01/12/18 09:44 Dose: 20 mg Metoprolol Tartrate (Lopressor) 25 mg PO DAILY [facility] Last Admin: 01/10/18 09:12 Dose: Not Given Midodrine (Proamatine) 10 mg PO Q8 [facility] Last Admin: 01/12/18 09:45 Dose: 10 mg Multivitamins/Minerals (Therapeutic-M Tab) 1 tab PO DAILY [facility] Last Admin: 01/12/18 09:46 Dose: 1 tab Ondansetron HCl (Zofran Inj) 4 mg IVP Q6 PRN PRN Reason: Nausea/Vomiting Ondansetron HCl (Zofran Odt) 4 mg PO DAILY [facility] Last Admin: 01/12/18 10:06 Dose: Not Given Ondansetron HCl (Zofran Odt) 4 mg PO Q8H PRN PRN Reason: Nausea/Vomiting Last Admin: 01/11/18 17:55 Dose: 4 mg Pantoprazole Sodium (Protonix Ec Tab) 40 mg PO DAILY [facility] Last Admin: 01/12/18 09:45 Dose: 40 mg Prednisone (Prednisone Tab) 2.5 mg PO MOFR [facility] Sevelamer HCl (Renagel) 800 mg PO TID [facility] Last Admin: 01/12/18 09:46 Dose: 800 mg Timolol Maleate (Timoptic 0.5% Ophth Soln) 1 drop OD DAILY [facility] Last Admin: 01/12/18 09:47 Dose: 1 drop Tramadol HCl (Ultram) 50 mg PO Q6 PRN PRN Reason: Pain, moderate (4-7) Last Admin: 01/12/18 09:51 Dose: 50 mg Vancomycin HCl (Vancocin (Oral/Rectal Use)) 250 mg PO Q8 [facility] PRN Reason: Protocol Last Admin: 01/12/18 09:48 Dose: 250 mg - Labs Labs: 01/12/18 05:10 01/12/18 05:10 PT 12.6 Seconds (9.8-13.1) 01/09/18 14:00 INR 1.1 (0.9-1.2) 01/09/18 14:00 APTT 23.0 Seconds (25.6-37.1) L 01/09/18 14:00 - Constitutional Appears: No Acute Distress, Chronically Ill - Head Exam Head Exam: NORMAL INSPECTION, NORMOCEPHALIC - Eye Exam Eye Exam: EOMI, Normal appearance Pupil Exam: NORMAL ACCOMODATION - ENT Exam ENT Exam: Mucous Membranes Moist, Normal External Ear Exam - Neck Exam Neck Exam: Full ROM. absent: Meningismus - Respiratory Exam Respiratory Exam: Rales (minimal rales bases), NORMAL BREATHING PATTERN. absent : Respiratory Distress - Cardiovascular Exam Cardiovascular Exam: Irregular Rhythm, +S1, +S2 - GI/Abdominal Exam GI & Abdominal Exam: Distended, Firm, Soft, mild Tenderness, Normal Bowel Sounds - Extremities Exam Extremities Exam: Normal Capillary Refill. absent: Calf Tenderness, Pedal Edema Additional comments: right arm AVF - Back Exam Back Exam: absent: CVA tenderness (L), CVA tenderness (R) - Neurological Exam Neurological Exam: Alert, Awake, CN II-XII Intact, Oriented x3 - Psychiatric Exam Psychiatric exam: Flat Affect - Skin Skin Exam: Dry, Normal Color, Warm Assessment and Plan - Assessment and Plan (Free Text) Assessment: 77 y/o lady with Hx of ESRD on HD, Cirrhosis with ascites requiring at least 2x per month Paracentesis, was brought in bec of abdominal pain. Patient missed her dialysis last Monday bec of the pain. In the ED - patient was noted to be sl hypotensive with BP in the 80 systolic and her Lactate was elevated at 2.4 - she was then admitted to ICU and started on Levophed. CT of the abdomen : 1. Cirrhosis of liver, large abdominal and pelvic ascites. 2. Small loculated right pleural effusion with pleural calcifications. 3. Stable noncalcified nodules in the right lower lobe, the largest measures 8 mm. In a low risk patient follow-up in 12 month interval and in a high-risk patient follow-up in six-month interval is recommended to assess stability 4. Cholelithiasis. 5. Polycystic kidneys. (1) ESRD on HD with Hyperkalemia sec to missed HD K =7.8 on admission now resolved Pt had emergent HD done on admission cont TIW HD Nephrology following pt cont Renagel 2) Abdominal pain ? sec to Ascites SBP ruled out also need to r/o C diff ( pt with hx of recurrent C diff) - s/p Paracentesis done by IR on 01/10 Ascitic fluid analysis : negative for infection Pt received IV Genta and Vanco yesterday post HD Stool for C diff ID consult: Dr Maxwell- rec PO Vanco Lactate and Prolactin elevated 3. Hypotension Pt on Levophed at 2.5 mcg pt has low baseline BP and is on Midodrine at home Increased Midodrine to 10 mg TID 4) Chronic A Fib -- stable, continue digoxin , Dig level normal - cont eliquis 5. Cirrhosis with ascites, Thrombocytopenia cont Paracentesis prn Pt follows up with GI in [place] () DVT prophylaxis Status: Acute SCD Pt is on Eliquis
--- NOTE | 2018-01-12 13:54 | CP.CCUPN ---
CCU Subjective - Physician Review Subjective (Free Text): Awake and alert, HD yesterday with removal of approx. 1.5 L. Still off Levophed / Intermittent abd pain is less today. Trops have been negative. Other Vitals and I/Os reviewed. ROS: No other pertinent negs or positives on 10+ system review PMSFH: All other Nursing and physician documentation reviewed to date; no new pertinent info noted relevant to current medical problems. EXAM- HEENT: no icterus, no gaze preference, pupils equal and reactive, no icterus NECK: No JVD, supple, carotids equal upstroke bilat/no bruits CHEST: decreased BS bases, no wheezes audible HEART: regular distant, S1S2, no rubs. ABD: soft, no distention, no tympany, no palp tenderness, BS hypoactive. EXT: trace edema bilat. No peripheral/ digital cyanosis, no calf tenderness or palpable cords, distal pulses intact and symmetrical. NEURO: no gross focal motor deficits. SKIN: no rashes, warm and dry. LABS: WBC= 5.2 HGB= 11.3 PLTs= 110 K Na= 135 K= 4.0 CL= 97 HCO3= 27 BUN/Cr= 54/4.6 BS= 73 Trop= negative 2 PCT= 42.18, repeated yesterday postdialysis 45.6. Peritoneal fluid : 47 WBCs IMPRESSION / MAJOR PROBLEMS NOW: 1. r/oed SBP; r/o recurrent C Diff colitis infection 2. ESRD on CAHD, with s/p Hyperkalemia / Uremia 3. Chronic recurrent Ascites 2 Cirrhosis (?? Cryptogenic ??) 4. Chronic A fib on AC 5. Chronic Thrombocytopenia on chronic steroids. PLAN: 1. Despite elevation in pro-calcitonin levels, do not see any evident focus of infection nor does patient appear to be septic, possible noninfectious cause of pro-calcitonin elevation?? Awaiting C diff Ag / toxin titers. 2. Off Levophed, continue Midodrine. 3. Could resume Eliquis, no other invasive procedures anticipated, other than possible PICC. 4. Continue prednisone therapy for chronic thrombocytopenia. CCU Objective - Vital Signs / Intake & Output Vital Signs (Last 4 hours): Vital Signs Temp Pulse Resp BP Pulse Ox 01/12/18 12:00 97.3 F L 77 14 103/54 L 100 Intake and Output (Last 8hrs): Intake & Output 01/11/18 01/12/18 01/12/18 22:59 06:59 14:59 Intake Total 100 360 Balance 100 360 Intake: Oral 100 360 - Medications Active Medications: Active Medications Generic Name Dose Route Start Last Admin Trade Name Freq PRN Reason Stop Dose Admin Acetaminophen 650 mg 01/09/18 17:10 01/09/18 18:18 Tylenol 325mg Tab PO 650 mg Q6 PRN Administration moderate pain level 4-7 Apixaban 2.5 mg 01/09/18 17:45 01/12/18 06:06 Eliquis PO 2.5 mg Q12H OJAQUIN Administration Protocol Cinacalcet 30 mg 01/09/18 09:00 01/12/18 09:46 Sensipar PO 30 mg DAILY JOAQUIN Administration Clorazepate Dipotassium 3.75 mg 01/09/18 22:00 01/11/18 22:20 Tranxene-T PO Not Given HS JOAQUIN Digoxin 0.25 mg 01/10/18 09:00 01/12/18 09:42 Lanoxin PO 0.25 mg MWF JOAQUIN Administration Docusate Sodium 100 mg 01/12/18 13:00 01/12/18 12:56 Colace PO 100 mg BID JOAQUIN Administration Famotidine 20 mg 01/10/18 09:00 01/12/18 09:44 Pepcid PO 20 mg BID JOAQUIN Administration Metoprolol Tartrate 25 mg 01/09/18 09:00 01/10/18 09:12 Lopressor PO Not Given DAILY JOAQUIN Midodrine 10 mg 01/10/18 09:00 01/12/18 09:45 Proamatine PO 10 mg Q8 JOAQUIN Administration Multivitamins/Minerals 1 tab 01/09/18 09:00 01/12/18 09:46 Therapeutic-M Tab PO 1 tab DAILY JOAQUIN Administration Ondansetron HCl 4 mg 01/09/18 06:13 Zofran Inj IVP Q6 PRN Nausea/Vomiting Ondansetron HCl 4 mg 01/10/18 09:00 01/12/18 10:06 Zofran Odt PO Not Given DAILY JOAQUIN Ondansetron HCl 4 mg 01/11/18 17:44 01/11/18 17:55 Zofran Odt PO 4 mg Q8H PRN Administration Nausea/Vomiting Pantoprazole Sodium 40 mg 01/09/18 09:00 01/12/18 09:45 Protonix Ec Tab PO 40 mg DAILY JOAQUIN Administration Prednisone 2.5 mg 01/12/18 17:33 Prednisone Tab PO MOFR JOAQUIN Sevelamer HCl 800 mg 01/09/18 09:00 01/12/18 13:46 Renagel PO 800 mg TID JOAQUIN Administration Timolol Maleate 1 drop 01/12/18 11:45 01/12/18 12:51 Timoptic 0.5% Ophth Soln OU 1 drop DAILY JOAQUIN Administration Tramadol HCl 50 mg 01/10/18 15:05 01/12/18 09:51 Ultram PO 50 mg Q6 PRN Administration Pain, moderate (4-7) Vancomycin HCl 250 mg 01/11/18 17:00 01/12/18 09:48 Vancocin (Oral/Rectal Use) PO 250 mg Q8 JOAQUIN Administration Protocol - Patient Studies Lab Studies: Microbiology Studies 01/10/18 14:12 Gram Stain - Final Ascitic Fluid Body Fluid Culture - Preliminary NO GROWTH AFTER 2 DAYS 01/09/18 03:15 Blood Culture - Preliminary Blood-Venous NO GROWTH AFTER 3 DAYS 01/09/18 03:33 Blood Culture - Preliminary Blood-Venous NO GROWTH AFTER 3 DAYS Lab Studies 01/12/18 01/12/18 01/12/18 Range/Units 10:30 05:10 05:10 WBC 5.2 (4.8-10.8) K/uL RBC 3.62 L (3.80-5.20) Mil/uL Hgb 11.3 L (12.0-16.0) g/dL Hct 35.3 (34.0-47.0) % MCV 97.3 (81.0-99.0) fl MCH 31.2 H (27.0-31.0) pg MCHC 32.1 L (33.0-37.0) g/dL RDW 15.5 H (11.5-14.5) % Plt Count 110 L (130-400) K/uL MPV 10.9 (7.2-11.7) fl Neut % (Auto) 81.6 H (50.0-75.0) % Lymph % (Auto) 6.1 L (20.0-40.0) % Kay % (Auto) 12.0 H (0.0-10.0) % Eos % (Auto) 0.1 (0.0-4.0) % Baso % (Auto) 0.2 (0.0-2.0) % Neut # (Auto) 4.2 (1.8-7.0) K/uL Lymph # (Auto) 0.3 L (1.0-4.3) K/uL Kay # (Auto) 0.6 (0.0-0.8) K/uL Eos # (Auto) 0.0 (0.0-0.7) K/uL Baso # (Auto) 0.0 (0.0-0.2) K/uL Neutrophils % (Manual) 79 H (42-75) % Lymphocytes % (Manual) 10 L (20-50) % Monocytes % (Manual) 11 H (0-10) % Platelet Estimate Slightly decreased L (NORMAL) Large Platelets Present Poikilocytosis (manual Slight Anisocytosis (manual) Slight Tear Drop Cells Slight Sodium 135 (132-148) mmol/l Potassium 4.0 (3.6-5.0) MMOL/L Chloride 97 L (98-107) mmol/L Carbon Dioxide 27 (22-30) mmol/L Anion Gap 15 (10-20) BUN 54 H (7-17) mg/dl Creatinine 4.6 H (0.7-1.2) mg/dl Est GFR ( Amer) 11 Est GFR (Non-Af Amer) 9 Random Glucose 73 (65-105) mg/dL Calcium 7.8 L (8.4-10.2) mg/dL Troponin I (0.00-0.120) ng/mL Procalcitonin (0.19-0.49) NG/ML Digoxin 1.8 (0.8-2.0) ng/mL 01/11/18 01/11/18 Range/Units 15:50 14:00 WBC (4.8-10.8) K/uL RBC (3.80-5.20) Mil/uL Hgb (12.0-16.0) g/dL Hct (34.0-47.0) % MCV (81.0-99.0) fl MCH (27.0-31.0) pg MCHC (33.0-37.0) g/dL RDW (11.5-14.5) % Plt Count (130-400) K/uL MPV (7.2-11.7) fl Neut % (Auto) (50.0-75.0) % Lymph % (Auto) (20.0-40.0) % Kay % (Auto) (0.0-10.0) % Eos % (Auto) (0.0-4.0) % Baso % (Auto) (0.0-2.0) % Neut # (Auto) (1.8-7.0) K/uL Lymph # (Auto) (1.0-4.3) K/uL Kay # (Auto) (0.0-0.8) K/uL Eos # (Auto) (0.0-0.7) K/uL Baso # (Auto) (0.0-0.2) K/uL Neutrophils % (Manual) (42-75) % Lymphocytes % (Manual) (20-50) % Monocytes % (Manual) (0-10) % Platelet Estimate (NORMAL) Large Platelets Poikilocytosis (manual Anisocytosis (manual) Tear Drop Cells Sodium (132-148) mmol/l Potassium (3.6-5.0) MMOL/L Chloride (98-107) mmol/L Carbon Dioxide (22-30) mmol/L Anion Gap (10-20) BUN (7-17) mg/dl Creatinine (0.7-1.2) mg/dl Est GFR ( Amer) Est GFR (Non-Af Amer) Random Glucose (65-105) mg/dL Calcium (8.4-10.2) mg/dL Troponin I 0.0540 (0.00-0.120) ng/mL Procalcitonin 45.63 H (0.19-0.49) NG/ML Digoxin (0.8-2.0) ng/mL Laboratory Results - last 24 hr 01/11/18 01/11/18 01/12/18 14:00 15:50 05:10 WBC 5.2 RBC 3.62 L Hgb 11.3 L Hct 35.3 MCV 97.3 MCH 31.2 H MCHC 32.1 L RDW 15.5 H Plt Count 110 L MPV 10.9 Neut % (Auto) 81.6 H Lymph % (Auto) 6.1 L Kay % (Auto) 12.0 H Eos % (Auto) 0.1 Baso % (Auto) 0.2 Neut # (Auto) 4.2 Lymph # (Auto) 0.3 L Kay # (Auto) 0.6 Eos # (Auto) 0.0 Baso # (Auto) 0.0 Neutrophils % (Manual) 79 H Lymphocytes % (Manual) 10 L Monocytes % (Manual) 11 H Platelet Estimate Slightly decreased L Large Platelets Present Poikilocytosis (manual Slight Anisocytosis (manual) Slight Tear Drop Cells Slight Sodium Potassium Chloride Carbon Dioxide Anion Gap BUN Creatinine Est GFR ( Amer) Est GFR (Non-Af Amer) Random Glucose Calcium Troponin I 0.0540 Procalcitonin 45.63 H Digoxin 01/12/18 01/12/18 05:10 10:30 WBC RBC Hgb Hct MCV MCH MCHC RDW Plt Count MPV Neut % (Auto) Lymph % (Auto) Kay % (Auto) Eos % (Auto) Baso % (Auto) Neut # (Auto) Lymph # (Auto) Kay # (Auto) Eos # (Auto) Baso # (Auto) Neutrophils % (Manual) Lymphocytes % (Manual) Monocytes % (Manual) Platelet Estimate Large Platelets Poikilocytosis (manual Anisocytosis (manual) Tear Drop Cells Sodium 135 Potassium 4.0 Chloride 97 L Carbon Dioxide 27 Anion Gap 15 BUN 54 H Creatinine 4.6 H Est GFR ( Amer) 11 Est GFR (Non-Af Amer) 9 Random Glucose 73 Calcium 7.8 L Troponin I Procalcitonin Digoxin 1.8 Critical Care Progress Note - Nutrition Nutrition: Nutrition Category Date Time Status Renal Diet [DIET] Diets 01/09/18 Dinner Active
[2018-01-13] MEDS: Vancomycin 500 mg (Oral/Rectal USE) PO SCH ×3 (01:17→13:24)
[2018-01-13 05:43] LABS: HEMOGLOBIN 11.6 g/dL (12.0-16.0); MEAN CELL VOLUME 97.1 fl (81.0-99.0); MEAN CORPUSCULAR HEMOGLOBIN 31.5 pg (27.0-31.0); MEAN CORPUSCULAR HGB CONC 32.5 g/dL (33.0-37.0); RBC 3.69 Mil/uL (3.80-5.20); RED CELL DISTRIBUTION WIDTH 15.5 % (11.5-14.5); WHITE BLOOD COUNT 4.9 K/uL (4.8-10.8)
[2018-01-13 06:08] LABS: CALCIUM 7.9 mg/dL (8.4-10.2)
--- NOTE | 2018-01-13 08:21 | CP.PCM.PN ---
Subjective - Date & Time of Evaluation Date of Evaluation: 01/13/18 Time of Evaluation: 08:21 - Subjective Subjective: pt awake, alert, HD this morning no complaints hd stable nad Objective - Vital Signs/Intake and Output Vital Signs (last 24 hours): Temp Pulse Resp BP Pulse Ox 98.2 F 83 13 110/69 100 01/13/18 04:00 01/13/18 06:00 01/13/18 06:00 01/13/18 06:00 01/13/18 06:00 - Medications Medications: Current Medications Acetaminophen (Tylenol 325mg Tab) 650 mg PO Q6 PRN PRN Reason: moderate pain level 4-7 Last Admin: 01/09/18 18:18 Dose: 650 mg Apixaban (Eliquis) 2.5 mg PO Q12H [facility] PRN Reason: Protocol Last Admin: 01/13/18 06:00 Dose: 2.5 mg Cinacalcet (Sensipar) 30 mg PO DAILY [facility] Last Admin: 01/12/18 09:46 Dose: 30 mg Clorazepate Dipotassium (Tranxene-T) 3.75 mg PO HS [facility] Last Admin: 01/12/18 22:29 Dose: 3.75 mg Digoxin (Lanoxin) 0.25 mg PO MWF [facility] Last Admin: 01/12/18 09:42 Dose: 0.25 mg Docusate Sodium (Colace) 100 mg PO BID [facility] Last Admin: 01/12/18 17:52 Dose: 100 mg Famotidine (Pepcid) 20 mg PO BID [facility] Last Admin: 01/12/18 17:53 Dose: 20 mg Metoprolol Tartrate (Lopressor) 25 mg PO DAILY [facility] Last Admin: 01/10/18 09:12 Dose: Not Given Midodrine (Proamatine) 10 mg PO Q8 [facility] Last Admin: 01/13/18 01:17 Dose: 10 mg Multivitamins/Minerals (Therapeutic-M Tab) 1 tab PO DAILY [facility] Last Admin: 01/12/18 09:46 Dose: 1 tab Ondansetron HCl (Zofran Inj) 4 mg IVP Q6 PRN PRN Reason: Nausea/Vomiting Ondansetron HCl (Zofran Odt) 4 mg PO DAILY [facility] Last Admin: 01/12/18 10:06 Dose: Not Given Ondansetron HCl (Zofran Odt) 4 mg PO Q8H PRN PRN Reason: Nausea/Vomiting Last Admin: 01/12/18 18:19 Dose: 4 mg Pantoprazole Sodium (Protonix Ec Tab) 40 mg PO DAILY [facility] Last Admin: 01/12/18 09:45 Dose: 40 mg Prednisone (Prednisone Tab) 2.5 mg PO MOFR [facility] Last Admin: 01/12/18 17:54 Dose: 2.5 mg Sevelamer HCl (Renagel) 800 mg PO TID [facility] Last Admin: 01/12/18 17:55 Dose: 800 mg Timolol Maleate (Timoptic 0.5% Ophth Soln) 1 drop OU DAILY [facility] Last Admin: 01/12/18 12:51 Dose: 1 drop Tramadol HCl (Ultram) 50 mg PO Q6 PRN PRN Reason: Pain, moderate (4-7) Last Admin: 01/12/18 09:51 Dose: 50 mg Vancomycin HCl (Vancocin (Oral/Rectal Use)) 250 mg PO Q8 [facility] PRN Reason: Protocol Last Admin: 01/13/18 01:17 Dose: 250 mg - Labs Labs: 01/13/18 04:55 01/13/18 04:55 PT 12.6 Seconds (9.8-13.1) 01/09/18 14:00 INR 1.1 (0.9-1.2) 01/09/18 14:00 APTT 23.0 Seconds (25.6-37.1) L 01/09/18 14:00 - Constitutional Appears: Non-toxic, No Acute Distress - Head Exam Head Exam: ATRAUMATIC, NORMOCEPHALIC - Eye Exam Eye Exam: EOMI, Normal appearance, PERRL - ENT Exam ENT Exam: Mucous Membranes Moist, Normal Exam - Neck Exam Neck Exam: Full ROM, Normal Inspection - Respiratory Exam Respiratory Exam: Clear to Ausculation Bilateral, NORMAL BREATHING PATTERN - Cardiovascular Exam Cardiovascular Exam: RRR, +S1, +S2 - GI/Abdominal Exam GI & Abdominal Exam: Soft, Normal Bowel Sounds. absent: Tenderness, Organomegaly - Extremities Exam Extremities Exam: Full ROM, Normal Capillary Refill - Back Exam Back Exam: absent: CVA tenderness (L), CVA tenderness (R) - Neurological Exam Neurological Exam: Alert, Awake - Psychiatric Exam Psychiatric exam: Normal Affect, Normal Mood - Skin Skin Exam: Dry, Warm Assessment and Plan - Assessment and Plan (Free Text) Plan: 77 y/o lady with Hx of ESRD on HD, Cirrhosis with ascites requiring at least 2x per month Paracentesis, was brought in bec of abdominal pain. Patient missed her dialysis last Monday bec of the pain. In the ED - patient was noted to be sl hypotensive with BP in the 80 systolic and her Lactate was elevated at 2.4 - she was then admitted to ICU and started on Levophed. CT of the abdomen : 1. Cirrhosis of liver, large abdominal and pelvic ascites. 2. Small loculated right pleural effusion with pleural calcifications. 3. Stable noncalcified nodules in the right lower lobe, the largest measures 8 mm. In a low risk patient follow-up in 12 month interval and in a high-risk patient follow-up in six-month interval is recommended to assess stability 4. Cholelithiasis. 5. Polycystic kidneys. if stable post HD, may downgrade to MS (1) ESRD on HD with Hyperkalemia sec to missed HD K =7.8 on admission now resolved Pt had emergent HD done on admission cont TIW HD Nephrology following pt cont Renagel 2) Abdominal pain ? sec to Ascites SBP ruled out also need to r/o C diff ( pt with hx of recurrent C diff) - s/p Paracentesis done by IR on 01/10 Ascitic fluid analysis : negative for infection Pt received IV Genta and Vanco yesterday post HD Stool for C diff ID consult: Dr Maxwell- rec PO Vanco Lactate and Prolactin elevated 3. Hypotension Pt on Levophed at 2.5 mcg pt has low baseline BP and is on Midodrine at home Increased Midodrine to 10 mg TID 4) Chronic A Fib -- stable, continue digoxin , Dig level normal - cont eliquis 5. Cirrhosis with ascites, Thrombocytopenia cont Paracentesis prn Pt follows up with GI in [place] () DVT prophylaxis Status: Acute SCD Pt is on Eliquis
--- NOTE | 2018-01-13 09:27 | CP.CCUPN ---
CCU Subjective - Physician Review Events Since Last Encounter (Free Text): 01/13/18 09:24 alert and oriented , daughter is at bed side, pt is awake alert, no SOB , but c/ o constipation for three days, off levophed, BP has been stable. HD is about to be started. BP now 110/67 HR 88/m, in a fib CCU Objective - Vital Signs / Intake & Output Vital Signs (Last 4 hours): Vital Signs Pulse Resp BP Pulse Ox 01/13/18 08:00 85 14 105/50 L 100 01/13/18 06:00 83 13 110/69 100 Intake and Output (Last 8hrs): Intake & Output 01/12/18 01/13/18 01/13/18 22:59 06:59 14:59 Intake Total 0 240 Balance 0 240 Weight 100 lb Intake: IV 0 Oral 0 240 - Physical Exam Narrative Physical Exam (Free Text): 01/13/18 09:26 P/E Neck: No JVd Lungs: No ronchi, crackles abdomen: distended, soft, non-tender, Ext: +1 edema heart: s1S2 irregular: Neuro: no focal signs. - Medications Active Medications: Active Medications Generic Name Dose Route Start Last Admin Trade Name Freq PRN Reason Stop Dose Admin Acetaminophen 650 mg 01/09/18 17:10 01/09/18 18:18 Tylenol 325mg Tab PO 650 mg Q6 PRN Administration moderate pain level 4-7 Apixaban 2.5 mg 01/09/18 17:45 01/13/18 06:00 Eliquis PO 2.5 mg Q12H JOAQUIN Administration Protocol Cinacalcet 30 mg 01/09/18 09:00 01/12/18 09:46 Sensipar PO 30 mg DAILY JOAQUIN Administration Clorazepate Dipotassium 3.75 mg 01/09/18 22:00 01/12/18 22:29 Tranxene-T PO 3.75 mg HS JOAQUIN Administration Digoxin 0.25 mg 01/10/18 09:00 01/12/18 09:42 Lanoxin PO 0.25 mg MWF JOAQUIN Administration Docusate Sodium 100 mg 01/12/18 13:00 01/12/18 17:52 Colace PO 100 mg BID JOAQUIN Administration Famotidine 20 mg 01/10/18 09:00 01/12/18 17:53 Pepcid PO 20 mg BID JOAQUIN Administration Metoprolol Tartrate 25 mg 01/09/18 09:00 01/10/18 09:12 Lopressor PO Not Given DAILY JOAQUIN Midodrine 10 mg 01/10/18 09:00 01/13/18 01:17 Proamatine PO 10 mg Q8 JOAQUIN Administration Multivitamins/Minerals 1 tab 01/09/18 09:00 01/12/18 09:46 Therapeutic-M Tab PO 1 tab DAILY JOAQUIN Administration Ondansetron HCl 4 mg 01/09/18 06:13 Zofran Inj IVP Q6 PRN Nausea/Vomiting Ondansetron HCl 4 mg 01/10/18 09:00 01/12/18 10:06 Zofran Odt PO Not Given DAILY JOAQUIN Ondansetron HCl 4 mg 01/11/18 17:44 01/12/18 18:19 Zofran Odt PO 4 mg Q8H PRN Administration Nausea/Vomiting Pantoprazole Sodium 40 mg 01/09/18 09:00 01/12/18 09:45 Protonix Ec Tab PO 40 mg DAILY JOAQUIN Administration Prednisone 2.5 mg 01/12/18 17:33 01/12/18 17:54 Prednisone Tab PO 2.5 mg MOFR JOAQUIN Administration Sevelamer HCl 800 mg 01/09/18 09:00 01/12/18 17:55 Renagel PO 800 mg TID JOAQUIN Administration Timolol Maleate 1 drop 01/12/18 11:45 01/12/18 12:51 Timoptic 0.5% Ophth Soln OU 1 drop DAILY JOAQUIN Administration Tramadol HCl 50 mg 01/10/18 15:05 01/12/18 09:51 Ultram PO 50 mg Q6 PRN Administration Pain, moderate (4-7) Vancomycin HCl 250 mg 01/11/18 17:00 01/13/18 01:17 Vancocin (Oral/Rectal Use) PO 250 mg Q8 JOAQUIN Administration Protocol - Patient Studies Lab Studies: Microbiology Studies 01/09/18 03:15 Blood Culture - Preliminary Blood-Venous NO GROWTH AFTER 4 DAYS 01/09/18 03:33 Blood Culture - Preliminary Blood-Venous NO GROWTH AFTER 4 DAYS 01/10/18 14:12 Gram Stain - Final Ascitic Fluid Body Fluid Culture - Preliminary NO GROWTH AFTER 2 DAYS Lab Studies 01/13/18 01/13/18 01/12/18 Range/Units 04:55 04:55 10:30 WBC 4.9 (4.8-10.8) K/uL RBC 3.69 L (3.80-5.20) Mil/uL Hgb 11.6 L (12.0-16.0) g/dL Hct 35.9 (34.0-47.0) % MCV 97.1 (81.0-99.0) fl MCH 31.5 H (27.0-31.0) pg MCHC 32.5 L (33.0-37.0) g/dL RDW 15.5 H (11.5-14.5) % Plt Count 163 (130-400) K/uL Sodium 135 (132-148) mmol/l Potassium 4.6 (3.6-5.0) MMOL/L Chloride 95 L (98-107) mmol/L Carbon Dioxide 24 (22-30) mmol/L Anion Gap 21 H (10-20) BUN 70 H (7-17) mg/dl Creatinine 5.5 H (0.7-1.2) mg/dl Est GFR ( Amer) 9 Est GFR (Non-Af Amer) 8 Random Glucose 82 (65-105) mg/dL Calcium 7.9 L (8.4-10.2) mg/dL Digoxin 1.8 (0.8-2.0) ng/mL Laboratory Results - last 24 hr 01/12/18 01/13/18 01/13/18 10:30 04:55 04:55 WBC 4.9 RBC 3.69 L Hgb 11.6 L Hct 35.9 MCV 97.1 MCH 31.5 H MCHC 32.5 L RDW 15.5 H Plt Count 163 Sodium 135 Potassium 4.6 Chloride 95 L Carbon Dioxide 24 Anion Gap 21 H BUN 70 H Creatinine 5.5 H Est GFR ( Amer) 9 Est GFR (Non-Af Amer) 8 Random Glucose 82 Calcium 7.9 L Digoxin 1.8 Critical Care Progress Note - Nutrition Nutrition: Nutrition Category Date Time Status Renal Diet [DIET] Diets 01/09/18 Dinner Active Assessment/Plan - Assessment and Plan (Free Text) Assessment: (1) ESRD on HD K has improved, volume status better HD about to be started, cont TIW HD Nephrology following pt cont Renagel 2) Abdominal pain : Improved, SBP ruled out - had Paracentesis on 01/10 abdominal pain: improved, has contipation Ascitic fluid analysis : negative for infection Pt received IV Genta and Vanco on 01/11 post HD Stool for C diff ID consult: Dr Maxwell- rec PO Vanco Lactate and Prolactin elevated 3. Hypotension Off Levophed , BP improved, in normal range now pt has low baseline BP and is on Midodrine at home Continue Midodrine to 10 mg TID 4) Chronic A Fib -- stable, continue digoxin , Dig level normal - cont eliquis 5. Constipation Will start lactulose , Pt follows up with GI in [place] () DVT prophylaxis Status: Acute SCD Pt is on Eliquis If remained stable after HD, will transfer to med -surg.
[2018-01-13] MEDS: Pantoprazole 40 mg EC Tab PO SCH (09:28)
[2018-01-13] MEDS: Multivitamin With Minerals Tab PO SCH (09:30)
[2018-01-13] MEDS ORDERED: Albumin Human 25% (12.5 gm/50 ml) IV ONE (10:45)
[2018-01-13] MEDS ORDERED: Chlorhexidine Gluconate 1 APPL/PKT TP ONE (11:15)
[2018-01-13] MEDS ORDERED: Dextrose 50% SYRINGE Inj (50 ml) ONE (12:18)
[2018-01-13] MEDS ORDERED: Dextrose 50% SYRINGE Inj (50 ml) IVP ONE (12:34)
--- NOTE | 2018-01-13 14:53 | CP.PCM.PN ---
Subjective - Date & Time of Evaluation Date of Evaluation: 01/13/18 Time of Evaluation: 13:00 - Subjective Subjective: ID Note- Pt. seen and examined in ICU today. her family including her daughter are at her bedside. as per pt's daughter pt. has had no BM in past 2 days and as per her pt. 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 as per pt's daughter pt. had 3 episodes of vomiting today post HD. pt. drowsy and only c/o nausea today. as per pt's daughter pt. occasionally gets confused and maybe that's why she told me diarrhea yesterday eventhough as per daughter and per nurse no pt. has had no BM yesterday and as per nurse was given lactulose today. Objective - Vital Signs/Intake and Output Vital Signs (last 24 hours): Temp Pulse Resp BP Pulse Ox 98.2 F 85 14 105/50 L 100 01/13/18 04:00 01/13/18 08:00 01/13/18 08:00 01/13/18 08:00 01/13/18 08:00 Intake and Output: 01/13/18 01/13/18 06:59 18:59 Intake Total 240 Balance 240 - Medications Medications: Current Medications Acetaminophen (Tylenol 325mg Tab) 650 mg PO Q6 PRN PRN Reason: moderate pain level 4-7 Last Admin: 01/09/18 18:18 Dose: 650 mg Apixaban (Eliquis) 2.5 mg PO Q12H [facility] PRN Reason: Protocol Last Admin: 01/13/18 06:00 Dose: 2.5 mg Cinacalcet (Sensipar) 30 mg PO DAILY [facility] Last Admin: 01/13/18 09:29 Dose: 30 mg Clorazepate Dipotassium (Tranxene-T) 3.75 mg PO HS [facility] Last Admin: 01/12/18 22:29 Dose: 3.75 mg Digoxin (Lanoxin) 0.25 mg PO MWF [facility] Last Admin: 01/12/18 09:42 Dose: 0.25 mg Docusate Sodium (Colace) 100 mg PO BID [facility] Last Admin: 01/13/18 09:24 Dose: 100 mg Famotidine (Pepcid) 20 mg PO BID [facility] Last Admin: 01/13/18 09:33 Dose: 20 mg Dextrose (Dextrose 5% In Water 1000 Ml) 1,000 mls @ 50 mls/hr IV .Q20H [facility] Stop: 01/14/18 12:35 Last Admin: 01/13/18 12:39 Dose: 50 mls/hr Lactulose (Enulose) 20 gm PO BID PRN PRN Reason: Constipation Last Admin: 01/13/18 13:19 Dose: 20 gm Metoprolol Tartrate (Lopressor) 25 mg PO DAILY [facility] Last Admin: 01/10/18 09:12 Dose: Not Given Midodrine (Proamatine) 10 mg PO Q8 [facility] Last Admin: 01/13/18 09:29 Dose: 10 mg Multivitamins/Minerals (Therapeutic-M Tab) 1 tab PO DAILY [facility] Last Admin: 01/13/18 09:30 Dose: 1 tab Ondansetron HCl (Zofran Inj) 4 mg IVP Q6 PRN PRN Reason: Nausea/Vomiting Ondansetron HCl (Zofran Odt) 4 mg PO DAILY [facility] Last Admin: 01/13/18 09:31 Dose: 4 mg Ondansetron HCl (Zofran Odt) 4 mg PO Q8H PRN PRN Reason: Nausea/Vomiting Last Admin: 01/13/18 10:38 Dose: 4 mg Pantoprazole Sodium (Protonix Ec Tab) 40 mg PO DAILY [facility] Last Admin: 01/13/18 09:28 Dose: 40 mg Prednisone (Prednisone Tab) 2.5 mg PO MOFR [facility] Last Admin: 01/12/18 17:54 Dose: 2.5 mg Sevelamer HCl (Renagel) 800 mg PO TID [facility] Last Admin: 01/13/18 13:20 Dose: 800 mg Timolol Maleate (Timoptic 0.5% Oph Soln) 1 drop OU DAILY [facility] Last Admin: 01/13/18 09:30 Dose: 1 drop Tramadol HCl (Ultram) 50 mg PO Q6 PRN PRN Reason: Pain, moderate (4-7) Last Admin: 01/12/18 09:51 Dose: 50 mg Vancomycin HCl (Vancocin (Oral/Rectal Use)) 250 mg PO Q8 [facility] PRN Reason: Protocol Last Admin: 01/13/18 13:24 Dose: Not Given - Labs Labs: - Additional Findings Additional findings: - Constitutional Appears: Non-toxic, No Acute Distress - Head Exam Head Exam: ATRAUMATIC - Eye Exam Eye Exam: EOMI, PERRL - ENT Exam ENT Exam: Normal Oropharynx - Neck Exam Neck exam: Positive for: Full Rom - Respiratory Exam Respiratory Exam: Clear to Auscultation Bilateral, NORMAL BREATHING PATTERN - Cardiovascular Exam Cardiovascular Exam: RRR, +S1, +S2 - GI/Abdominal Exam Additional comments: soft, distended, + ascites minimal tenderness throughout abdomen but no guarding, no rebound + BS - Extremities Exam Additional comments: no edema B/L LE Right arm HD access site , clean , no erythema - Neurological Exam Neurological exam: Alert, Oriented x 3 Laboratory Results - last 72 hr 01/10/18 01/10/18 01/10/18 14:12 14:12 14:30 WBC RBC Hgb Hct MCV MCH MCHC RDW Plt Count MPV Neut % (Auto) Lymph % (Auto) [place] % (Auto) Eos % (Auto) Baso % (Auto) Neut # (Auto) Lymph # (Auto) [place] # (Auto) Eos # (Auto) Baso # (Auto) Neutrophils % (Manual) Lymphocytes % (Manual) Monocytes % (Manual) Platelet Estimate Large Platelets Poikilocytosis (manual Anisocytosis (manual) Tear Drop Cells Sodium Potassium Chloride Carbon Dioxide Anion Gap BUN Creatinine Est GFR ( Amer) Est GFR (Non-Af Amer) POC Glucose (mg/dL) Random Glucose Calcium Total Bilirubin AST ALT Alkaline Phosphatase Troponin I Total Protein Albumin Globulin Albumin/Globulin Ratio Procalcitonin Fluid Source Cancelled Peritoneal/ascites Fluid Appearance Cancelled Clear Fluid WBC Cancelled 47.0 Fluid RBC Cancelled 20.0 H Fluid Tot Cell Count Cancelled 100 H Fluid Neutrophils Cancelled 55.0 H Fluid Lymphocytes Cancelled 20.0 H Fld Monocyte/Macrophag Cancelled 25 H Fluid Glucose 91 Fluid Total Protein Cancelled < 2.0 Fluid LDH 524 Fluid Comment Cancelled Yellow Digoxin 01/10/18 01/10/18 01/11/18 15:58 16:30 07:30 WBC 6.9 RBC 3.87 Hgb 12.2 Hct 37.7 MCV 97.3 MCH 31.4 H MCHC 32.3 L RDW 15.6 H Plt Count 103 L MPV 10.6 Neut % (Auto) 80.9 H Lymph % (Auto) 6.3 L [place] % (Auto) 12.6 H Eos % (Auto) 0.1 Baso % (Auto) 0.1 Neut # (Auto) 5.6 Lymph # (Auto) 0.4 L [place] # (Auto) 0.9 H Eos # (Auto) 0.0 Baso # (Auto) 0.0 Neutrophils % (Manual) Lymphocytes % (Manual) Monocytes % (Manual) Platelet Estimate Large Platelets Poikilocytosis (manual Anisocytosis (manual) Tear Drop Cells Sodium Potassium Chloride Carbon Dioxide Anion Gap BUN Creatinine Est GFR ( Amer) Est GFR (Non-Af Amer) POC Glucose (mg/dL) Random Glucose Calcium Total Bilirubin AST ALT Alkaline Phosphatase Troponin I 0.0490 Total Protein Albumin Globulin Albumin/Globulin Ratio Procalcitonin 42.18 H Fluid Source Fluid Appearance Fluid WBC Fluid RBC Fluid Tot Cell Count Fluid Neutrophils Fluid Lymphocytes Fld Monocyte/Macrophag Fluid Glucose Fluid Total Protein Fluid LDH Fluid Comment Digoxin 01/11/18 01/11/18 01/11/18 07:30 14:00 15:50 WBC RBC Hgb Hct MCV MCH MCHC RDW Plt Count MPV Neut % (Auto) Lymph % (Auto) [place] % (Auto) Eos % (Auto) Baso % (Auto) Neut # (Auto) Lymph # (Auto) [place] # (Auto) Eos # (Auto) Baso # (Auto) Neutrophils % (Manual) Lymphocytes % (Manual) Monocytes % (Manual) Platelet Estimate Large Platelets Poikilocytosis (manual Anisocytosis (manual) Tear Drop Cells Sodium 139 Potassium 4.4 Chloride 100 Carbon Dioxide 24 Anion Gap 19 BUN 80 H Creatinine 6.4 H Est GFR ( Amer) 8 Est GFR (Non-Af Amer) 6 POC Glucose (mg/dL) Random Glucose 93 Calcium 8.1 L Total Bilirubin 0.8 AST 23 ALT 36 Alkaline Phosphatase 81 Troponin I 0.0540 Total Protein 5.4 L Albumin 2.5 L D Globulin 2.9 Albumin/Globulin Ratio 0.9 L Procalcitonin 45.63 H Fluid Source Fluid Appearance Fluid WBC Fluid RBC Fluid Tot Cell Count Fluid Neutrophils Fluid Lymphocytes Fld Monocyte/Macrophag Fluid Glucose Fluid Total Protein Fluid LDH Fluid Comment Digoxin 01/12/18 01/12/18 01/12/18 05:10 05:10 10:30 WBC 5.2 RBC 3.62 L Hgb 11.3 L Hct 35.3 MCV 97.3 MCH 31.2 H MCHC 32.1 L RDW 15.5 H Plt Count 110 L MPV 10.9 Neut % (Auto) 81.6 H Lymph % (Auto) 6.1 L [place] % (Auto) 12.0 H Eos % (Auto) 0.1 Baso % (Auto) 0.2 Neut # (Auto) 4.2 Lymph # (Auto) 0.3 L [place] # (Auto) 0.6 Eos # (Auto) 0.0 Baso # (Auto) 0.0 Neutrophils % (Manual) 79 H Lymphocytes % (Manual) 10 L Monocytes % (Manual) 11 H Platelet Estimate Slightly decreased L Large Platelets Present Poikilocytosis (manual Slight Anisocytosis (manual) Slight Tear Drop Cells Slight Sodium 135 Potassium 4.0 Chloride 97 L Carbon Dioxide 27 Anion Gap 15 BUN 54 H Creatinine 4.6 H Est GFR ( Amer) 11 Est GFR (Non-Af Amer) 9 POC Glucose (mg/dL) Random Glucose 73 Calcium 7.8 L Total Bilirubin AST ALT Alkaline Phosphatase Troponin I Total Protein Albumin Globulin Albumin/Globulin Ratio Procalcitonin Fluid Source Fluid Appearance Fluid WBC Fluid RBC Fluid Tot Cell Count Fluid Neutrophils Fluid Lymphocytes Fld Monocyte/Macrophag Fluid Glucose Fluid Total Protein Fluid LDH Fluid Comment Digoxin 1.8 01/13/18 01/13/18 01/13/18 04:55 04:55 12:13 WBC 4.9 RBC 3.69 L Hgb 11.6 L Hct 35.9 MCV 97.1 MCH 31.5 H MCHC 32.5 L RDW 15.5 H Plt Count 163 MPV Neut % (Auto) Lymph % (Auto) [place] % (Auto) Eos % (Auto) Baso % (Auto) Neut # (Auto) Lymph # (Auto) [place] # (Auto) Eos # (Auto) Baso # (Auto) Neutrophils % (Manual) Lymphocytes % (Manual) Monocytes % (Manual) Platelet Estimate Large Platelets Poikilocytosis (manual Anisocytosis (manual) Tear Drop Cells Sodium 135 Potassium 4.6 Chloride 95 L Carbon Dioxide 24 Anion Gap 21 H BUN 70 H Creatinine 5.5 H Est GFR ( Amer) 9 Est GFR (Non-Af Amer) 8 POC Glucose (mg/dL) 71 Random Glucose 82 Calcium 7.9 L Total Bilirubin AST ALT Alkaline Phosphatase Troponin I Total Protein Albumin Globulin Albumin/Globulin Ratio Procalcitonin Fluid Source Fluid Appearance Fluid WBC Fluid RBC Fluid Tot Cell Count Fluid Neutrophils Fluid Lymphocytes Fld Monocyte/Macrophag Fluid Glucose Fluid Total Protein Fluid LDH Fluid Comment Digoxin 01/13/18 14:18 WBC RBC Hgb Hct MCV MCH MCHC RDW Plt Count MPV Neut % (Auto) Lymph % (Auto) [place] % (Auto) Eos % (Auto) Baso % (Auto) Neut # (Auto) Lymph # (Auto) [place] # (Auto) Eos # (Auto) Baso # (Auto) Neutrophils % (Manual) Lymphocytes % (Manual) Monocytes % (Manual) Platelet Estimate Large Platelets Poikilocytosis (manual Anisocytosis (manual) Tear Drop Cells Sodium Potassium Chloride Carbon Dioxide Anion Gap BUN Creatinine Est GFR ( Amer) Est GFR (Non-Af Amer) POC Glucose (mg/dL) 93 Random Glucose Calcium Total Bilirubin AST ALT Alkaline Phosphatase Troponin I Total Protein Albumin Globulin Albumin/Globulin Ratio Procalcitonin Fluid Source Fluid Appearance Fluid WBC Fluid RBC Fluid Tot Cell Count Fluid Neutrophils Fluid Lymphocytes Fld Monocyte/Macrophag Fluid Glucose Fluid Total Protein Fluid LDH Fluid Comment Digoxin Microbiology 01/10/18 14:12 Ascitic Fluid Gram Stain - Final 01/10/18 14:12 Ascitic Fluid Body Fluid Culture - Preliminary NO GROWTH AFTER 3 DAYS 01/09/18 03:15 Blood-Venous Blood Culture - Preliminary NO GROWTH AFTER 4 DAYS 01/09/18 03:33 Blood-Venous Blood Culture - Preliminary NO GROWTH AFTER 4 DAYS 01/09/18 18:36 Naris MRSA Culture (Admit) - Final MRSA NOT DETECTED Assessment and Plan (1) Ascites Status: Acute (2) ESRD (end stage renal disease) on dialysis Status: Acute (3) Abdominal pain Status: Acute - Assessment and Plan (Free Text) Assessment: A/P- 77 year old female with multiple medical conditions inclduing ESRD On HD, 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 afebrile normal wbc count ascitic fluid cell count not c/w sbp. cxr no infiltrates , right lung Pleural effusion reported on CT . blood cx- neg x 2 ascites fluid gram stain - Cx negative in light of the new info of No BM in past 2 days advise to d/c oral empiric vanco plan- check stool c.diff AG once pt. ahs any kind of BM. d/c empiric oral vanco pending further results. . All labs , imaging and med records reviewed. All above was d/w patient and her daughter and all questions were answered. ICU time 45 minutes.
--- NOTE | 2018-01-13 22:21 | CP.PCM.PN ---
Subjective - Date & Time of Evaluation Date of Evaluation: 01/13/18 Time of Evaluation: 10:00 - Subjective Subjective: Assessment: stable Ascites, End stage renal disease on hemodialysis (MWF) via AVF with missed HD. Anemia, Hyperphosphatemia, Secondary hyperparathyroidism nausea vomiting, constipation ascites Plan: seen on hd, toleratig ok so far albumin with hd for hypotension PRBC as needed for anemia. stable Continue with phos binders,monitor phos levels Glycemic control, Dialysis consistent diet Further work up/management as per primary team Dose meds/antibiotics (if needed) for ESRD status. N/V/constipation: management per primary team, daughter very concerned and wants to transfer patient to another facility Physical Examination: General Appearance: Comfortable, in no acute respiratory distress, co-operative .seen on hd Vitals reviewed and noted as below Head; Atraumatic, normocephalic ENT: no ulcers no thrush. Tongue is midline. Oropharynx: no rash or ulcers. EYES: Eye muscles and extraocular movement intact. Sclera is anicteric. Neck; supple no thyromegaly or bruit Lungs: Normal respiratory rate/effort. Breath sounds bilateral equal and with few basal crackles Heart: Normal rate. s1s2 normal. No rub or gallop. Extremities: no edema. No varicose veins Neurological: Patient is alert, awake and oriented. No focal deficit. Strength bilateral appropriate and equal Skin: Warm and dry. Normal turgor. No rash. Palpitation: Normal elasticity for age Abdomen: Abdomen is soft. Bowel sounds +. There is mild abdominal tenderness, no guarding/rigidity or organomegaly. distended with ascitic Psych: lack insight and has normal affect MSK: no joint tenderness or swelling. Digits and nails normal, no deformity : kidney or bladder not palpable Access: AVF Objective - Vital Signs/Intake and Output Vital Signs (last 24 hours): Temp Pulse Resp BP Pulse Ox 97.7 F 70 20 102/41 L 94 L 01/13/18 16:00 01/13/18 18:00 01/13/18 18:00 01/13/18 18:00 01/13/18 18:00 Intake and Output: 01/13/18 01/14/18 18:59 06:59 Intake Total 555 Balance 555 - Medications Medications: Current Medications Acetaminophen (Tylenol 325mg Tab) 650 mg PO Q6 PRN PRN Reason: moderate pain level 4-7 Last Admin: 01/09/18 18:18 Dose: 650 mg Apixaban (Eliquis) 2.5 mg PO Q12H [facility] PRN Reason: Protocol Last Admin: 01/13/18 17:43 Dose: 2.5 mg Cinacalcet (Sensipar) 30 mg PO DAILY [facility] Last Admin: 01/13/18 09:29 Dose: 30 mg Clorazepate Dipotassium (Tranxene-T) 3.75 mg PO HS [facility] Last Admin: 01/12/18 22:29 Dose: 3.75 mg Digoxin (Lanoxin) 0.25 mg PO MWF [facility] Last Admin: 01/12/18 09:42 Dose: 0.25 mg Docusate Sodium (Colace) 100 mg PO BID [facility] Last Admin: 01/13/18 17:42 Dose: 100 mg Famotidine (Pepcid) 20 mg PO BID [facility] Last Admin: 01/13/18 17:47 Dose: 20 mg Dextrose (Dextrose 5% In Water 1000 Ml) 1,000 mls @ 50 mls/hr IV .Q20H [facility] Stop: 01/14/18 12:35 Last Admin: 01/13/18 12:39 Dose: 50 mls/hr Lactulose (Enulose) 20 gm PO BID PRN PRN Reason: Constipation Last Admin: 01/13/18 13:19 Dose: 20 gm Metoprolol Tartrate (Lopressor) 25 mg PO DAILY [facility] Last Admin: 01/10/18 09:12 Dose: Not Given Midodrine (Proamatine) 10 mg PO Q8 [facility] Last Admin: 01/13/18 17:44 Dose: 10 mg Multivitamins/Minerals (Therapeutic-M Tab) 1 tab PO DAILY [facility] Last Admin: 01/13/18 09:30 Dose: 1 tab Ondansetron HCl (Zofran Inj) 4 mg IVP Q6 PRN PRN Reason: Nausea/Vomiting Ondansetron HCl (Zofran Odt) 4 mg PO DAILY [facility] Last Admin: 01/13/18 09:31 Dose: 4 mg Ondansetron HCl (Zofran Odt) 4 mg PO Q8H PRN PRN Reason: Nausea/Vomiting Last Admin: 01/13/18 10:38 Dose: 4 mg Pantoprazole Sodium (Protonix Ec Tab) 40 mg PO DAILY [facility] Last Admin: 01/13/18 09:28 Dose: 40 mg Prednisone (Prednisone Tab) 2.5 mg PO MOFR [facility] Last Admin: 01/12/18 17:54 Dose: 2.5 mg Sevelamer HCl (Renagel) 800 mg PO TID [facility] Last Admin: 01/13/18 17:44 Dose: 800 mg Timolol Maleate (Timoptic 0.5% Oph Soln) 1 drop OU DAILY [facility] Last Admin: 01/13/18 09:30 Dose: 1 drop Tramadol HCl (Ultram) 50 mg PO Q6 PRN PRN Reason: Pain, moderate (4-7) Last Admin: 01/12/18 09:51 Dose: 50 mg - Labs Labs: 01/13/18 04:55 01/13/18 04:55 PT 12.6 Seconds (9.8-13.1) 01/09/18 14:00 INR 1.1 (0.9-1.2) 01/09/18 14:00 APTT 23.0 Seconds (25.6-37.1) L 01/09/18 14:00
[2018-01-14 06:05] LABS: HEMOGLOBIN 11.2 g/dL (12.0-16.0); MEAN CORPUSCULAR HEMOGLOBIN 31.6 pg (27.0-31.0); MEAN CORPUSCULAR HGB CONC 32.9 g/dL (33.0-37.0); RBC 3.53 Mil/uL (3.80-5.20); RED CELL DISTRIBUTION WIDTH 15.5 % (11.5-14.5); WHITE BLOOD COUNT 4.5 K/uL (4.8-10.8)
[2018-01-14 06:47] LABS: CALCIUM 7.7 mg/dL (8.4-10.2)
--- NOTE | 2018-01-14 07:39 | CP.PCM.PN ---
Subjective - Date & Time of Evaluation Date of Evaluation: 01/14/18 Time of Evaluation: 07:38 - Subjective Subjective: pt with mod/severe nausea/emesis today. plan for paracentesis monday, HD tomorrow hd stable nad Objective - Vital Signs/Intake and Output Vital Signs (last 24 hours): Temp Pulse Resp BP Pulse Ox 98.3 F 78 24 98/72 L 100 01/13/18 20:00 01/14/18 02:00 01/14/18 02:00 01/14/18 02:00 01/14/18 02:00 Constitutional- cooperative, awake, alert. Head- NCAT, PERRL Eye- PERRL, normal accommodation ENT- normal exam, MMM. Neck- normal inspection, supple, no JVD Respiratory- CTAB, no wheezes rales rhonchi Cardiovascular- RRR, +S1, +S2 no MRG GI/Abdominal- normal bowel sounds, soft, distended Skin- warm, dry Extremities Exam- normal capillary refill, normal inspection Neurological Exam- alert, oriented Psych- normal mood, normal affect Intake and Output: 01/14/18 01/14/18 06:59 18:59 Intake Total 100 Balance 100 - Medications Medications: Current Medications Acetaminophen (Tylenol 325mg Tab) 650 mg PO Q6 PRN PRN Reason: moderate pain level 4-7 Last Admin: 01/09/18 18:18 Dose: 650 mg Apixaban (Eliquis) 2.5 mg PO Q12H [facility] PRN Reason: Protocol Last Admin: 01/14/18 06:15 Dose: 2.5 mg Cinacalcet (Sensipar) 30 mg PO DAILY [facility] Last Admin: 01/13/18 09:29 Dose: 30 mg Clorazepate Dipotassium (Tranxene-T) 3.75 mg PO HS [facility] Last Admin: 01/13/18 22:49 Dose: 3.75 mg Digoxin (Lanoxin) 0.25 mg PO MWF [facility] Last Admin: 01/12/18 09:42 Dose: 0.25 mg Docusate Sodium (Colace) 100 mg PO BID [facility] Last Admin: 01/13/18 17:42 Dose: 100 mg Famotidine (Pepcid) 20 mg PO BID [facility] Last Admin: 01/13/18 17:47 Dose: 20 mg Dextrose (Dextrose 5% In Water 1000 Ml) 1,000 mls @ 50 mls/hr IV .Q20H [facility] Stop: 01/14/18 12:35 Last Admin: 01/14/18 06:50 Dose: 50 mls/hr Lactulose (Enulose) 20 gm PO BID PRN PRN Reason: Constipation Last Admin: 01/13/18 13:19 Dose: 20 gm Metoprolol Tartrate (Lopressor) 25 mg PO DAILY [facility] Last Admin: 01/10/18 09:12 Dose: Not Given Midodrine (Proamatine) 10 mg PO Q8 [facility] Last Admin: 01/14/18 01:11 Dose: 10 mg Multivitamins/Minerals (Therapeutic-M Tab) 1 tab PO DAILY [facility] Last Admin: 01/13/18 09:30 Dose: 1 tab Ondansetron HCl (Zofran Inj) 4 mg IVP Q6 PRN PRN Reason: Nausea/Vomiting Ondansetron HCl (Zofran Odt) 4 mg PO DAILY [facility] Last Admin: 01/13/18 09:31 Dose: 4 mg Ondansetron HCl (Zofran Odt) 4 mg PO Q8H PRN PRN Reason: Nausea/Vomiting Last Admin: 01/13/18 10:38 Dose: 4 mg Pantoprazole Sodium (Protonix Ec Tab) 40 mg PO DAILY [facility] Last Admin: 01/13/18 09:28 Dose: 40 mg Prednisone (Prednisone Tab) 2.5 mg PO MOFR [facility] Last Admin: 01/12/18 17:54 Dose: 2.5 mg Sevelamer HCl (Renagel) 800 mg PO TID [facility] Last Admin: 01/13/18 17:44 Dose: 800 mg Timolol Maleate (Timoptic 0.5% [facility]) 1 drop OU DAILY [facility] Last Admin: 01/13/18 09:30 Dose: 1 drop Tramadol HCl (Ultram) 50 mg PO Q6 PRN PRN Reason: Pain, moderate (4-7) Last Admin: 01/14/18 01:13 Dose: 50 mg - Labs Labs: 01/14/18 05:34 01/14/18 05:34 PT 12.6 Seconds (9.8-13.1) 01/09/18 14:00 INR 1.1 (0.9-1.2) 01/09/18 14:00 APTT 23.0 Seconds (25.6-37.1) L 01/09/18 14:00 Assessment and Plan - Assessment and Plan (Free Text) Plan: 77 y/o lady with Hx of ESRD on HD, Cirrhosis with ascites requiring at least 2x per month Paracentesis, was brought in bec of abdominal pain. Patient missed her dialysis last Monday bec of the pain. In the ED - patient was noted to be sl hypotensive with BP in the 80 systolic and her Lactate was elevated at 2.4 - she was then admitted to ICU and started on Levophed. CT of the abdomen : 1. Cirrhosis of liver, large abdominal and pelvic ascites. 2. Small loculated right pleural effusion with pleural calcifications. 3. Stable noncalcified nodules in the right lower lobe, the largest measures 8 mm. In a low risk patient follow-up in 12 month interval and in a high-risk patient follow-up in six-month interval is recommended to assess stability 4. Cholelithiasis. 5. Polycystic kidneys. if stable post HD tomorrow, may downgrade to MS (1) ESRD on HD with Hyperkalemia sec to missed HD K =7.8 on admission now resolved Pt had emergent HD done on admission cont TIW HD Nephrology following pt cont Renagel 2) Abdominal pain ? sec to Ascites SBP ruled out also need to r/o C diff ( pt with hx of recurrent C diff) - s/p Paracentesis done by IR on 01/10, repeat Monday Ascitic fluid analysis : negative for infection Pt received IV Genta and Vanco yesterday post HD Stool for C diff ID consult: Dr Maxwell- rec PO Vanco D/C 2 days ago Lactate and Prolactin elevated 3. Hypotension OFF 2 days Levophed at 2.5 mcg pt has low baseline BP and is on Midodrine at home Increased Midodrine to 10 mg TID 4) Chronic A Fib -- stable, continue digoxin, Dig level normal - cont eliquis 5. Cirrhosis with ascites, Thrombocytopenia cont Paracentesis prn Pt follows up with GI in [place] () DVT prophylaxis Status: Acute SCD Pt is on Eliquis
[2018-01-14] MEDS: Multivitamin With Minerals Tab PO SCH (09:13)
[2018-01-14] MEDS: Pantoprazole 40 mg EC Tab PO SCH (09:16)
--- NOTE | 2018-01-14 09:47 | CP.CCUPN ---
CCU Subjective - Physician Review Events Since Last Encounter (Free Text): 01/14/18 09:44 Alert and awake, had HD yesterday, BP dropped during HD and not much UF was achieved but completed HD, Now awake and alert, no pain, no SOB, says her abdomen is getting distended again, she get paracentesis, almost on weekly basis . CCU Objective - Vital Signs / Intake & Output Vital Signs (Last 4 hours): Vital Signs Temp Pulse Resp BP Pulse Ox 01/14/18 08:00 97.6 F 70 16 89/43 L 100 01/14/18 06:00 70 19 104/49 L 100 Intake and Output (Last 8hrs): Intake & Output 01/13/18 01/14/18 01/14/18 22:59 06:59 14:59 Intake Total 220 100 Balance 220 100 Weight 123 lb Intake: IV 100 100 Oral 120 - Physical Exam Narrative Physical Exam (Free Text): 01/14/18 09:47 P/E Neck: No JVD Lungs: decreased breath sounds, basis Ext : No edema Heart: No gallop Neuro: no focal signs, deficit . - Medications Active Medications: Active Medications Generic Name Dose Route Start Last Admin Trade Name Freq PRN Reason Stop Dose Admin Acetaminophen 650 mg 01/09/18 17:10 01/09/18 18:18 Tylenol 325mg Tab PO 650 mg Q6 PRN Administration moderate pain level 4-7 Apixaban 2.5 mg 01/09/18 17:45 01/14/18 06:15 Eliquis PO 2.5 mg Q12H JOAQUIN Administration Protocol Cinacalcet 30 mg 01/09/18 09:00 01/14/18 09:17 Sensipar PO 30 mg DAILY JOAQUIN Administration Clorazepate Dipotassium 3.75 mg 01/09/18 22:00 01/13/18 22:49 Tranxene-T PO 3.75 mg HS JOAQUIN Administration Digoxin 0.25 mg 01/10/18 09:00 01/12/18 09:42 Lanoxin PO 0.25 mg MWF JOAQUIN Administration Docusate Sodium 100 mg 01/12/18 13:00 01/14/18 09:13 Colace PO 100 mg BID JOAQUIN Administration Famotidine 20 mg 01/10/18 09:00 01/14/18 09:25 Pepcid PO 20 mg BID JOAQUIN Administration Dextrose 1,000 mls @ 50 mls/hr 01/13/18 12:45 01/14/18 06:50 Dextrose 5% In Water 1000 Ml IV 01/14/18 12:35 50 mls/hr .Q20H JOAQUIN Administration Lactulose 20 gm 01/13/18 09:32 01/13/18 13:19 Enulose PO 20 gm BID PRN Administration Constipation Metoprolol Tartrate 25 mg 01/09/18 09:00 01/10/18 09:12 Lopressor PO Not Given DAILY JOAQUIN Midodrine 10 mg 01/10/18 09:00 01/14/18 09:15 Proamatine PO 10 mg Q8 JOAQUIN Administration Multivitamins/Minerals 1 tab 01/09/18 09:00 01/14/18 09:13 Therapeutic-M Tab PO 1 tab DAILY JOAQUIN Administration Ondansetron HCl 4 mg 01/09/18 06:13 Zofran Inj IVP Q6 PRN Nausea/Vomiting Ondansetron HCl 4 mg 01/10/18 09:00 01/14/18 09:14 Zofran Odt PO 4 mg DAILY JOAQUIN Administration Ondansetron HCl 4 mg 01/11/18 17:44 01/13/18 10:38 Zofran Odt PO 4 mg Q8H PRN Administration Nausea/Vomiting Pantoprazole Sodium 40 mg 01/09/18 09:00 01/14/18 09:16 Protonix Ec Tab PO 40 mg DAILY JOAQUIN Administration Prednisone 2.5 mg 01/12/18 17:33 01/12/18 17:54 Prednisone Tab PO 2.5 mg MOFR JOAQUIN Administration Sevelamer HCl 800 mg 01/09/18 09:00 01/14/18 09:13 Renagel PO 800 mg TID JOAQUIN Administration Timolol Maleate 1 drop 01/12/18 11:45 01/14/18 09:18 Timoptic 0.5% Ophth Soln OU 1 drop DAILY JOAQUIN Administration Tramadol HCl 50 mg 01/10/18 15:05 01/14/18 01:13 Ultram PO 50 mg Q6 PRN Administration Pain, moderate (4-7) - Patient Studies Lab Studies: Microbiology Studies 01/10/18 14:12 Gram Stain - Final Ascitic Fluid Body Fluid Culture - Final No growth. 01/09/18 03:15 Blood Culture - Final Blood-Venous NO GROWTH AFTER 5 DAYS Gram Stain - Final TEST NOT PERFORMED 01/09/18 03:33 Blood Culture - Final Blood-Venous NO GROWTH AFTER 5 DAYS Gram Stain - Final TEST NOT PERFORMED Lab Studies 01/14/18 01/14/18 01/13/18 Range/Units 05:34 05:34 21:15 WBC 4.5 L (4.8-10.8) K/uL RBC 3.53 L (3.80-5.20) Mil/uL Hgb 11.2 L (12.0-16.0) g/dL Hct 33.9 L (34.0-47.0) % MCV 96.0 (81.0-99.0) fl MCH 31.6 H (27.0-31.0) pg MCHC 32.9 L (33.0-37.0) g/dL RDW 15.5 H (11.5-14.5) % Plt Count 172 (130-400) K/uL Sodium 132 (132-148) mmol/l Potassium 4.2 (3.6-5.0) MMOL/L Chloride 92 L (98-107) mmol/L Carbon Dioxide 28 (22-30) mmol/L Anion Gap 16 (10-20) BUN 46 H (7-17) mg/dl Creatinine 4.3 H (0.7-1.2) mg/dl Est GFR ( Amer) 12 Est GFR (Non-Af Amer) 10 POC Glucose (mg/dL) 100 (65-110) mg/dL Random Glucose 106 H (65-105) mg/dL Calcium 7.7 L (8.4-10.2) mg/dL Procalcitonin (0.19-0.49) NG/ML 01/13/18 01/13/18 01/13/18 Range/Units 14:18 12:13 04:55 WBC (4.8-10.8) K/uL RBC (3.80-5.20) Mil/uL Hgb (12.0-16.0) g/dL Hct (34.0-47.0) % MCV (81.0-99.0) fl MCH (27.0-31.0) pg MCHC (33.0-37.0) g/dL RDW (11.5-14.5) % Plt Count (130-400) K/uL Sodium (132-148) mmol/l Potassium (3.6-5.0) MMOL/L Chloride (98-107) mmol/L Carbon Dioxide (22-30) mmol/L Anion Gap (10-20) BUN (7-17) mg/dl Creatinine (0.7-1.2) mg/dl Est GFR ( Amer) Est GFR (Non-Af Amer) POC Glucose (mg/dL) 93 71 (65-110) mg/dL Random Glucose (65-105) mg/dL Calcium (8.4-10.2) mg/dL Procalcitonin 33.42 H (0.19-0.49) NG/ML Laboratory Results - last 24 hr 01/13/18 01/13/18 01/13/18 04:55 12:13 14:18 WBC RBC Hgb Hct MCV MCH MCHC RDW Plt Count Sodium Potassium Chloride Carbon Dioxide Anion Gap BUN Creatinine Est GFR ( Amer) Est GFR (Non-Af Amer) POC Glucose (mg/dL) 71 93 Random Glucose Calcium Procalcitonin 33.42 H 01/13/18 01/14/18 01/14/18 21:15 05:34 05:34 WBC 4.5 L RBC 3.53 L Hgb 11.2 L Hct 33.9 L MCV 96.0 MCH 31.6 H MCHC 32.9 L RDW 15.5 H Plt Count 172 Sodium 132 Potassium 4.2 Chloride 92 L Carbon Dioxide 28 Anion Gap 16 BUN 46 H Creatinine 4.3 H Est GFR ( Amer) 12 Est GFR (Non-Af Amer) 10 POC Glucose (mg/dL) 100 Random Glucose 106 H Calcium 7.7 L Procalcitonin Critical Care Progress Note - Nutrition Nutrition: Nutrition Category Date Time Status Renal Diet [DIET] Diets 01/09/18 Dinner Active Assessment/Plan - Assessment and Plan (Free Text) Assessment: Assessment/Plan - Assessment and Plan (Free Text) Assessment: (1) ESRD on HD K has improved, volume status better Had HD yesterday, HD TTS cont TIW HD Nephrology following pt cont Renagel 2) Abdominal pain : Improved, SBP ruled out - had Paracentesis on 01/10, now slightly more distended abdomen. Ascitic fluid analysis : negative for infection Pt received IV Genta and Vanco on 01/11 post HD Stool for C diff ID consult: Dr Maxwell- rec PO Vanco Lactate and Prolactin elevated 3. Hypotension Had been Off Levophed , BP improved, in normal range now , had low BP during HD yesterday pt has low baseline BP and is on Midodrine at home Continue Midodrine to 10 mg TID 4) Chronic A Fib -- stable, continue digoxin , Dig level normal - cont eliquis 5. Constipation Will start lactulose , Pt follows up with GI in [place] () DVT prophylaxis Status: Acute SCD Pt is on Eliquis Can be transferred to floor and the DC home , if remained stable .
[2018-01-15 05:30] LABS: BASO % 0.2 % (0.0-2.0); EOS % 0.6 % (0.0-4.0); HEMOGLOBIN 10.8 g/dL (12.0-16.0); LYMPH # 0.3 K/uL (1.0-4.3); LYMPH % 6.4 % (20.0-40.0); MEAN CELL VOLUME 96.1 fl (81.0-99.0); MEAN CORPUSCULAR HGB CONC 32.3 g/dL (33.0-37.0); MONO # 0.9 K/uL (0.0-0.8); NEUT # 3.2 K/uL (1.8-7.0); NEUT % 71.8 % (50.0-75.0); RBC 3.47 Mil/uL (3.80-5.20); RED CELL DISTRIBUTION WIDTH 15.1 % (11.5-14.5); WHITE BLOOD COUNT 4.4 K/uL (4.8-10.8)
[2018-01-15] MEDS ORDERED: Dextrose 5%/0.9% NS 1,000 ML IV SCH (05:30)
[2018-01-15 05:36] LABS: CALCIUM 7.5 mg/dL (8.4-10.2)
--- NOTE | 2018-01-15 08:11 | CP.PCM.PN ---
Subjective - Date & Time of Evaluation Date of Evaluation: 01/15/18 Time of Evaluation: 08:11 - Subjective Subjective: pt nauseated, small amounts of sputum daughter at bedside HD stable, baselin efor patient HD for today, paracentesis tomorrow likely Objective - Vital Signs/Intake and Output Vital Signs (last 24 hours): Temp Pulse Resp BP Pulse Ox 97.4 F L 70 16 81/42 L 96 01/15/18 06:00 01/15/18 06:00 01/15/18 06:00 01/15/18 06:00 01/15/18 06:00 Intake and Output: 01/15/18 01/15/18 06:59 18:59 Intake Total 100 Balance 100 - Medications Medications: Current Medications Acetaminophen (Tylenol 325mg Tab) 650 mg PO Q6 PRN PRN Reason: moderate pain level 4-7 Last Admin: 01/09/18 18:18 Dose: 650 mg Apixaban (Eliquis) 2.5 mg PO Q12H [facility] PRN Reason: Protocol Last Admin: 01/15/18 06:30 Dose: 2.5 mg Cinacalcet (Sensipar) 30 mg PO DAILY [facility] Last Admin: 01/14/18 09:17 Dose: 30 mg Digoxin (Lanoxin) 0.25 mg PO MWF [facility] Last Admin: 01/12/18 09:42 Dose: 0.25 mg Docusate Sodium (Colace) 100 mg PO BID [facility] Last Admin: 01/14/18 16:31 Dose: Not Given Famotidine (Pepcid) 20 mg PO BID [facility] Last Admin: 01/14/18 16:35 Dose: 20 mg Dextrose/Sodium Chloride (Dextrose 5%/0.9% Ns 1000 Ml) 1,000 mls @ 50 mls/hr IV .Q20H [facility] Stop: 01/16/18 01:29 Last Admin: 01/15/18 06:29 Dose: 50 mls/hr Lactulose (Enulose) 20 gm PO BID PRN PRN Reason: Constipation Last Admin: 01/13/18 13:19 Dose: 20 gm Metoprolol Tartrate (Lopressor) 25 mg PO DAILY [facility] Last Admin: 01/10/18 09:12 Dose: Not Given Midodrine (Proamatine) 10 mg PO Q8 [facility] Last Admin: 01/15/18 00:38 Dose: 10 mg Multivitamins/Minerals (Therapeutic-M Tab) 1 tab PO DAILY [facility] Last Admin: 01/14/18 09:13 Dose: 1 tab Ondansetron HCl (Zofran Inj) 4 mg IVP Q6 PRN PRN Reason: Nausea/Vomiting Ondansetron HCl (Zofran Odt) 4 mg PO DAILY [facility] Last Admin: 01/14/18 09:14 Dose: 4 mg Ondansetron HCl (Zofran Odt) 4 mg PO Q8H PRN PRN Reason: Nausea/Vomiting Last Admin: 01/13/18 10:38 Dose: 4 mg Pantoprazole Sodium (Protonix Ec Tab) 40 mg PO DAILY [facility] Last Admin: 01/14/18 09:16 Dose: 40 mg Prednisone (Prednisone Tab) 2.5 mg PO MOFR [facility] Last Admin: 01/12/18 17:54 Dose: 2.5 mg Prochlorperazine (Compazine) 10 mg IVP Q8 PRN PRN Reason: Nausea/Vomiting Last Admin: 01/15/18 05:10 Dose: 10 mg Sevelamer HCl (Renagel) 800 mg PO TID [facility] Last Admin: 01/14/18 16:33 Dose: 800 mg Timolol Maleate (Timoptic 0.5% Oph Soln) 1 drop OU DAILY [facility] Last Admin: 01/14/18 09:18 Dose: 1 drop Tramadol HCl (Ultram) 50 mg PO Q6 PRN PRN Reason: Pain, moderate (4-7) Last Admin: 01/14/18 01:13 Dose: 50 mg - Labs Labs: 01/15/18 04:15 01/15/18 04:15 PT 12.6 Seconds (9.8-13.1) 01/09/18 14:00 INR 1.1 (0.9-1.2) 01/09/18 14:00 APTT 23.0 Seconds (25.6-37.1) L 01/09/18 14:00 Assessment and Plan - Assessment and Plan (Free Text) Plan: 77 y/o lady with Hx of ESRD on HD, Cirrhosis with ascites requiring at least 2x per month Paracentesis, was brought in bec of abdominal pain. Patient missed her dialysis last Monday bec of the pain. In the ED - patient was noted to be sl hypotensive with BP in the 80 systolic and her Lactate was elevated at 2.4 - she was then admitted to ICU and started on Levophed. CT of the abdomen : 1. Cirrhosis of liver, large abdominal and pelvic ascites. 2. Small loculated right pleural effusion with pleural calcifications. 3. Stable noncalcified nodules in the right lower lobe, the largest measures 8 mm. In a low risk patient follow-up in 12 month interval and in a high-risk patient follow-up in six-month interval is recommended to assess stability 4. Cholelithiasis. 5. Polycystic kidneys. HD today, with albumin 25mg IV X3 Q8 Hours. for Paracentesis tomorrow. (1) ESRD on HD with Hyperkalemia sec to missed HD K =7.8 on admission now resolved Pt had emergent HD done on admission cont TIW HD Nephrology following pt cont Renagel 2) Abdominal pain ? sec to Ascites SBP ruled out also need to r/o C diff ( pt with hx of recurrent C diff) - s/p Paracentesis done by IR on 01/10, repeat Monday Ascitic fluid analysis : negative for infection Pt received IV Genta and Vanco yesterday post HD Stool for C diff ID consult: Dr Maxwell- rec PO Vanco D/C 2 days ago Lactate and Prolactin elevated 3. Hypotension OFF 3 days Levophed at 2.5 mcg pt has low baseline BP and is on Midodrine at home Increased Midodrine to 10 mg TID 4) Chronic A Fib -- stable, continue digoxin, Dig level normal - cont eliquis 5. Cirrhosis with ascites, Thrombocytopenia cont Paracentesis prn Pt follows up with GI in [place] () DVT prophylaxis Status: Acute SCD Pt is on Eliquis
[2018-01-15] MEDS: Albumin Human 25% (12.5 gm/50 ml) IV SCH ×2 (09:05→16:58)
[2018-01-15] MEDS: Pantoprazole 40 mg EC Tab PO SCH (09:31)
--- NOTE | 2018-01-15 10:46 | CP.PCM.PN ---
Subjective - Date & Time of Evaluation Date of Evaluation: 01/15/18 Time of Evaluation: 10:43 - Subjective Subjective: Patient in bed Patient is awake complaining of intermittent nausea and vomiting. Daughter at the bedside which I discuss the case with the family Patient complaining of abdominal distention Objective - Vital Signs/Intake and Output Vital Signs (last 24 hours): Temp Pulse Resp BP Pulse Ox 97.3 F L 63 12 98/44 L 100 01/15/18 08:00 01/15/18 08:00 01/15/18 08:00 01/15/18 08:00 01/15/18 08:00 Intake and Output: 01/15/18 01/15/18 06:59 18:59 Intake Total 100 50 Balance 100 50 - Medications Medications: Current Medications Acetaminophen (Tylenol 325mg Tab) 650 mg PO Q6 PRN PRN Reason: moderate pain level 4-7 Last Admin: 01/09/18 18:18 Dose: 650 mg Albumin Human (Albumin Human 25% (12.5 Gm/50 Ml)) 50 gm IV Q8H [facility] Stop: 01/16/18 08:28 Last Admin: 01/15/18 09:05 Dose: 50 gm Apixaban (Eliquis) 2.5 mg PO Q12H JOAQUIN PRN Reason: Protocol Last Admin: 01/15/18 06:30 Dose: 2.5 mg Cinacalcet (Sensipar) 30 mg PO DAILY [facility] Last Admin: 01/14/18 09:17 Dose: 30 mg Digoxin (Lanoxin) 0.25 mg PO MWF [facility] Last Admin: 01/12/18 09:42 Dose: 0.25 mg Docusate Sodium (Colace) 100 mg PO BID [facility] Last Admin: 01/15/18 08:54 Dose: Not Given Epoetin Blade (Procrit) 6,000 unit IV MWF [facility] Stop: 01/15/18 11:01 Famotidine (Pepcid) 20 mg PO BID [facility] Last Admin: 01/15/18 09:31 Dose: 20 mg Dextrose/Sodium Chloride (Dextrose 5%/0.9% Ns 1000 Ml) 1,000 mls @ 50 mls/hr IV .Q20H [facility] Stop: 01/16/18 01:29 Last Admin: 01/15/18 06:29 Dose: 50 mls/hr Lactulose (Enulose) 20 gm PO BID PRN PRN Reason: Constipation Last Admin: 01/13/18 13:19 Dose: 20 gm Metoprolol Tartrate (Lopressor) 25 mg PO DAILY [facility] Last Admin: 01/10/18 09:12 Dose: Not Given Midodrine (Proamatine) 10 mg PO Q8 [facility] Last Admin: 01/15/18 00:38 Dose: 10 mg Multivitamins/Minerals (Therapeutic-M Tab) 1 tab PO DAILY [facility] Last Admin: 01/14/18 09:13 Dose: 1 tab Ondansetron HCl (Zofran Inj) 4 mg IVP Q6 PRN PRN Reason: Nausea/Vomiting Ondansetron HCl (Zofran Odt) 4 mg PO DAILY [facility] Last Admin: 01/15/18 09:31 Dose: 4 mg Ondansetron HCl (Zofran Odt) 4 mg PO Q8H PRN PRN Reason: Nausea/Vomiting Last Admin: 01/13/18 10:38 Dose: 4 mg Pantoprazole Sodium (Protonix Ec Tab) 40 mg PO DAILY [facility] Last Admin: 01/15/18 09:31 Dose: 40 mg Prednisone (Prednisone Tab) 2.5 mg PO MOFR [facility] Last Admin: 01/12/18 17:54 Dose: 2.5 mg Prochlorperazine (Compazine) 10 mg IVP Q8 PRN PRN Reason: Nausea/Vomiting Last Admin: 01/15/18 05:10 Dose: 10 mg Sevelamer HCl (Renagel) 800 mg PO TID [facility] Last Admin: 01/15/18 08:55 Dose: Not Given Timolol Maleate (Timoptic 0.5% [facility]) 1 drop OU DAILY [facility] Last Admin: 01/14/18 09:18 Dose: 1 drop Tramadol HCl (Ultram) 50 mg PO Q6 PRN PRN Reason: Pain, moderate (4-7) Last Admin: 01/14/18 01:13 Dose: 50 mg - Labs Labs: 01/15/18 04:15 01/15/18 04:15 PT 12.6 Seconds (9.8-13.1) 01/09/18 14:00 INR 1.1 (0.9-1.2) 01/09/18 14:00 APTT 23.0 Seconds (25.6-37.1) L 01/09/18 14:00 - Constitutional Appears: No Acute Distress - ENT Exam ENT Exam: Mucous Membranes Moist - Neck Exam Neck Exam: absent: Lymphadenopathy - Respiratory Exam Respiratory Exam: absent: Chest Wall Tenderness - Cardiovascular Exam Cardiovascular Exam: absent: JVD, Rubs - GI/Abdominal Exam GI & Abdominal Exam: Distended, Guarding, Soft, Normal Bowel Sounds - Extremities Exam Extremities Exam: absent: Calf Tenderness - Back Exam Back Exam: absent: CVA tenderness (L), CVA tenderness (R) - Neurological Exam Neurological Exam: Alert - Psychiatric Exam Psychiatric exam: Normal Affect - Skin Skin Exam: absent: Cyanosis Assessment and Plan (1) Abdominal pain Status: Acute (2) Ascites Status: Acute (3) ESRD (end stage renal disease) on dialysis Assessment & Plan: #1End stage renal disease Having difficulty to dialysis because of the hypotension despite she was given albumin and dopamin. receiving HD tomorrow and then MWF for next week to give more albumin. #2 ascitis status post paracentesis #3 abdominal pain improving somewhat #4 chf history and volume overloaded. #5 H/O pericardial effusion,need to do ECHo as soon as possible. #6 hypotension #7 hypoalbuminemia patient need nutritional counseling with the dietitian. #8 history of hyperphosphatemia and secondary hyperparathyroidism #9 debility Hyponatremia serum sodium coming down 127 dilutional. Family agreeable for hemodialysis today after they refuse this morning. Patient is going for paracentesis for tomorrow. Continue to give albumin on hemodialysis. Prognosis guarded patient is very frail. Anemia.add EPO . Status: Acute
--- NOTE | 2018-01-15 10:51 | CP.PCM.PN ---
Subjective - Date & Time of Evaluation Date of Evaluation: 01/15/18 Time of Evaluation: 10:51 - Subjective Subjective: ID Note- Pt. seen and examined today in ICU with her daughter at her bedside. Pt. tired and drowsy but awakens easily. c/o abdominal distention and discomfort and nausea. had 1 BM yesterday . no BM today. Objective - Vital Signs/Intake and Output Vital Signs (last 24 hours): Temp Pulse Resp BP Pulse Ox 97.3 F L 63 12 98/44 L 100 01/15/18 08:00 01/15/18 08:00 01/15/18 08:00 01/15/18 08:00 01/15/18 08:00 Intake and Output: 01/15/18 01/15/18 06:59 18:59 Intake Total 100 50 Balance 100 50 - Medications Medications: Current Medications Acetaminophen (Tylenol 325mg Tab) 650 mg PO Q6 PRN PRN Reason: moderate pain level 4-7 Last Admin: 01/09/18 18:18 Dose: 650 mg Albumin Human (Albumin Human 25% (12.5 Gm/50 Ml)) 50 gm IV Q8H [facility] Stop: 01/16/18 08:28 Last Admin: 01/15/18 09:05 Dose: 50 gm Apixaban (Eliquis) 2.5 mg PO Q12H [facility] PRN Reason: Protocol Last Admin: 01/15/18 06:30 Dose: 2.5 mg Cinacalcet (Sensipar) 30 mg PO DAILY [facility] Last Admin: 01/14/18 09:17 Dose: 30 mg Digoxin (Lanoxin) 0.25 mg PO MWF [facility] Last Admin: 01/12/18 09:42 Dose: 0.25 mg Docusate Sodium (Colace) 100 mg PO BID [facility] Last Admin: 01/15/18 08:54 Dose: Not Given Epoetin Blade (Procrit) 6,000 unit IV MW ONE Stop: 01/15/18 11:01 Famotidine (Pepcid) 20 mg PO BID [facility] Last Admin: 01/15/18 09:31 Dose: 20 mg Dextrose/Sodium Chloride (Dextrose 5%/0.9% Ns 1000 Ml) 1,000 mls @ 50 mls/hr IV .Q20H [facility] Stop: 01/16/18 01:29 Last Admin: 01/15/18 06:29 Dose: 50 mls/hr Lactulose (Enulose) 20 gm PO BID PRN PRN Reason: Constipation Last Admin: 01/13/18 13:19 Dose: 20 gm Metoprolol Tartrate (Lopressor) 25 mg PO DAILY [facility] Last Admin: 01/10/18 09:12 Dose: Not Given Midodrine (Proamatine) 10 mg PO Q8 [facility] Last Admin: 01/15/18 00:38 Dose: 10 mg Multivitamins/Minerals (Therapeutic-M Tab) 1 tab PO DAILY [facility] Last Admin: 01/14/18 09:13 Dose: 1 tab Ondansetron HCl (Zofran Inj) 4 mg IVP Q6 PRN PRN Reason: Nausea/Vomiting Ondansetron HCl (Zofran Odt) 4 mg PO DAILY [facility] Last Admin: 01/15/18 09:31 Dose: 4 mg Ondansetron HCl (Zofran Odt) 4 mg PO Q8H PRN PRN Reason: Nausea/Vomiting Last Admin: 01/13/18 10:38 Dose: 4 mg Pantoprazole Sodium (Protonix Ec Tab) 40 mg PO DAILY [facility] Last Admin: 01/15/18 09:31 Dose: 40 mg Prednisone (Prednisone Tab) 2.5 mg PO MOFR [facility] Last Admin: 01/12/18 17:54 Dose: 2.5 mg Prochlorperazine (Compazine) 10 mg IVP Q8 PRN PRN Reason: Nausea/Vomiting Last Admin: 01/15/18 05:10 Dose: 10 mg Sevelamer HCl (Renagel) 800 mg PO TID [facility] Last Admin: 01/15/18 08:55 Dose: Not Given Timolol Maleate (Timoptic 0.5% Oph Soln) 1 drop OU DAILY [facility] Last Admin: 01/14/18 09:18 Dose: 1 drop Tramadol HCl (Ultram) 50 mg PO Q6 PRN PRN Reason: Pain, moderate (4-7) Last Admin: 01/14/18 01:13 Dose: 50 mg - Labs Labs: - Additional Findings Additional findings: - Constitutional Appears: Non-toxic, No Acute Distress - Head Exam Head Exam: ATRAUMATIC - Eye Exam Eye Exam: EOMI, PERRL - ENT Exam ENT Exam: Normal Oropharynx - Neck Exam Neck exam: Positive for: Full Rom - Respiratory Exam Respiratory Exam: Clear to Auscultation Bilateral, NORMAL BREATHING PATTERN - Cardiovascular Exam Cardiovascular Exam: RRR, +S1, +S2 - GI/Abdominal Exam Additional comments: soft, distended, + ascites minimal tenderness throughout abdomen but no guarding, no rebound + BS - Extremities Exam Additional comments: no edema B/L LE Right arm HD access site , clean , no erythema - Neurological Exam Neurological exam: drowsy but oriented x 3 when awakens Laboratory Results - last 72 hr 01/11/18 01/13/18 01/13/18 11:54 04:55 04:55 WBC 4.9 RBC 3.69 L Hgb 11.6 L Hct 35.9 MCV 97.1 MCH 31.5 H MCHC 32.5 L RDW 15.5 H Plt Count 163 MPV Neut % (Auto) Lymph % (Auto) [place] % (Auto) Eos % (Auto) Baso % (Auto) Neut # (Auto) Lymph # (Auto) [place] # (Auto) Eos # (Auto) Baso # (Auto) Sodium Potassium Chloride Carbon Dioxide Anion Gap BUN Creatinine Est GFR ( Amer) Est GFR (Non-Af Amer) POC Glucose (mg/dL) Random Glucose Calcium Phosphorus Procalcitonin 33.42 H C. difficile Ag & Toxin Positive H 01/13/18 01/13/18 01/13/18 04:55 12:13 14:18 WBC RBC Hgb Hct MCV MCH MCHC RDW Plt Count MPV Neut % (Auto) Lymph % (Auto) [place] % (Auto) Eos % (Auto) Baso % (Auto) Neut # (Auto) Lymph # (Auto) [place] # (Auto) Eos # (Auto) Baso # (Auto) Sodium 135 Potassium 4.6 Chloride 95 L Carbon Dioxide 24 Anion Gap 21 H BUN 70 H Creatinine 5.5 H Est GFR ( Amer) 9 Est GFR (Non-Af Amer) 8 POC Glucose (mg/dL) 71 93 Random Glucose 82 Calcium 7.9 L Phosphorus Procalcitonin C. difficile Ag & Toxin 01/13/18 01/14/18 01/14/18 21:15 05:34 05:34 WBC 4.5 L RBC 3.53 L Hgb 11.2 L Hct 33.9 L MCV 96.0 MCH 31.6 H MCHC 32.9 L RDW 15.5 H Plt Count 172 MPV Neut % (Auto) Lymph % (Auto) [place] % (Auto) Eos % (Auto) Baso % (Auto) Neut # (Auto) Lymph # (Auto) [place] # (Auto) Eos # (Auto) Baso # (Auto) Sodium 132 Potassium 4.2 Chloride 92 L Carbon Dioxide 28 Anion Gap 16 BUN 46 H Creatinine 4.3 H Est GFR ( Amer) 12 Est GFR (Non-Af Amer) 10 POC Glucose (mg/dL) 100 Random Glucose 106 H Calcium 7.7 L Phosphorus Procalcitonin C. difficile Ag & Toxin 01/14/18 01/15/18 01/15/18 11:16 04:15 04:15 WBC 4.4 L RBC 3.47 L Hgb 10.8 L Hct 33.4 L MCV 96.1 MCH 31.0 MCHC 32.3 L RDW 15.1 H Plt Count 183 MPV 9.0 Neut % (Auto) 71.8 Lymph % (Auto) 6.4 L [place] % (Auto) 21.0 H Eos % (Auto) 0.6 Baso % (Auto) 0.2 Neut # (Auto) 3.2 Lymph # (Auto) 0.3 L [place] # (Auto) 0.9 H Eos # (Auto) 0.0 Baso # (Auto) 0.0 Sodium 127 L Potassium 4.3 Chloride 88 L Carbon Dioxide 25 Anion Gap 18 BUN 51 H Creatinine 4.8 H Est GFR ( Amer) 11 Est GFR (Non-Af Amer) 9 POC Glucose (mg/dL) 88 Random Glucose 116 H Calcium 7.5 L Phosphorus 4.6 H Procalcitonin C. difficile Ag & Toxin 01/15/18 01/15/18 06:23 11:29 WBC RBC Hgb Hct MCV MCH MCHC RDW Plt Count MPV Neut % (Auto) Lymph % (Auto) [place] % (Auto) Eos % (Auto) Baso % (Auto) Neut # (Auto) Lymph # (Auto) [place] # (Auto) Eos # (Auto) Baso # (Auto) Sodium Potassium Chloride Carbon Dioxide Anion Gap BUN Creatinine Est GFR ( Amer) Est GFR (Non-Af Amer) POC Glucose (mg/dL) 96 79 Random Glucose Calcium Phosphorus Procalcitonin C. difficile Ag & Toxin Microbiology 01/10/18 14:12 Ascitic Fluid Gram Stain - Final 01/10/18 14:12 Ascitic Fluid Body Fluid Culture - Final No growth. 01/09/18 03:15 Blood-Venous Blood Culture - Final NO GROWTH AFTER 5 DAYS 01/09/18 03:15 Blood-Venous Gram Stain - Final TEST NOT PERFORMED 01/09/18 03:33 Blood-Venous Blood Culture - Final NO GROWTH AFTER 5 DAYS 01/09/18 03:33 Blood-Venous Gram Stain - Final TEST NOT PERFORMED 01/09/18 18:36 Naris MRSA Culture (Admit) - Final MRSA NOT DETECTED Assessment and Plan (1) Ascites Status: Acute (2) ESRD (end stage renal disease) on dialysis Status: Acute (3) Abdominal pain Status: Acute (4) C. 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 afebrile normal wbc count ascitic fluid cell count not c/w sbp. cxr no infiltrates , right lung Pleural effusion reported on CT . blood cx- neg x 2 ascites fluid gram stain - Cx negative stool c.diff - positive for both GA and toxin reported today from 01/11/2018 plan- resume oral vanco for + stool c.diff AG and toxin. ascites management as per GI and ICU team. HD as per renal. all above d/w patient and her daughter at length and they verbalize full understanding of all above and agree with above plan of care. ICU time 45 minutes. .
[2018-01-15] MEDS ORDERED: Epoetin Alfa 20000 UNIT/ML Inj IV ONE (11:00)
[2018-01-15] MEDS ORDERED: Sodium Chloride 0.9% 1,000 ML IV SCH (15:00)
--- NOTE | 2018-01-15 16:10 | CP.CCUPN ---
CCU Subjective - Physician Review Subjective (Free Text): Awake and alert, undergoing HD now with approx. 550 ml removed and with another hour to go before completion. ++Nausea and coughing, had vomited and or coughed up approx. 100ml of dark thick brownish fluid / phlegm. Patient and daughter c/o abdomen is distended again and PMD arranged for paracentesis this AM, but had recd Eliquis at approx. 630AM, procedure cancelled by IR. On D5half saline at 50 mlhr. Otherwise has poor PO intake, states she has no appetite. Clinical Ob fever spikes. 96% SPO2 on nasal cannula. Other Vitals and I/Os reviewed. ROS: No other pertinent negs or positives on 10+ system review PMSFH: All other Nursing and physician documentation reviewed to date; no new pertinent info noted relevant to current medical problems. EXAM- HEENT: no icterus, no gaze preference, pupils equal and reactive, no icterus NECK: No JVD, supple, carotids equal upstroke bilat/no bruits CHEST: decreased BS bases, no wheezes audible HEART: regular distant, S1S2, no rubs. ABD: soft, ++ distention, no tympany, no palp tenderness, BS hypoactive. EXT: trace edema bilat. No peripheral/ digital cyanosis, no calf tenderness or palpable cords, distal pulses intact and symmetrical. RUE AV shunt with good bruit and thrill. NEURO: no gross focal motor deficits. SKIN: no rashes, warm and dry. LABS: WBC= 4.4 HGB= 10.8 PLTs= 183K Na= 127 K= 4.3 CL= 88 HCO3= 25 BUN/Cr= 51/4.8 BS= 113 PCT= 33 C DIFF + Last CXR 01/09 shows minimal R effusion, no gross consolidation. IMPRESSION / MAJOR PROBLEMS NOW: 1. r/oed SBP; now +C Diff colitis infection 2. ESRD on CAHD, with s/p Hyperkalemia / Uremia 3. Chronic recurrent Ascites 2 Cirrhosis (?? Cryptogenic ??) 4. Chronic A fib on AC 5. Chronic Thrombocytopenia on chronic steroids. PLAN: 1. Continues to exhibit marked PCT elevation, but no leukocytosis nor temp spike. GI s/sx persist with abd pain, nausea and vomiting / belching. Check Lipase, repeat CBC, CMP, PCT, VBG with lactate, PT, PTT, Blood culture. So far no known etiology for cirrhosis, presumed to be cryptogenic. Daughter has brought in generic Nexium, stating she does better with this. Will stop Protonix, allow Esomeprazole and Pepcid therapy for now. Would get GI consultation, HD nurse states patient is all Hep ABC negative. 2. C Diff coverage as per ID, patient underwent fecal trsplant 1 yr ago. Never had a liver biopsy, underwent one CT Abdomen as patient with indeterminate labeling as cirrhosis 2 yrs ago and has been undergoing ambulatory paracentesis since that time. CTAP on admission re-reviewed, no specific etiology can be made on cirrhotic appearing liver. 3. Last ECHO done April 2015: LV normal, dilated RV with pulm HTN, severe TR, mod AR. Would do repeat study: r/o (cardiac cirrhosis) congestive hepatopathy due to R heart failure. 4. See further orders pending repeat of all labs post HD and repeat CXR. CCU Objective - Vital Signs / Intake & Output Vital Signs (Last 4 hours): Vital Signs Pulse Resp BP Pulse Ox 01/15/18 14:00 72 12 102/41 L 96 Intake and Output (Last 8hrs): Intake & Output 01/15/18 01/15/18 01/15/18 06:59 14:59 22:59 Intake Total 90 Balance 90 Intake: Intake, Piggyback 90 - Medications Active Medications: Active Medications Generic Name Dose Route Start Last Admin Trade Name Freq PRN Reason Stop Dose Admin Acetaminophen 650 mg 01/09/18 17:10 01/09/18 18:18 Tylenol 325mg Tab PO 650 mg Q6 PRN Administration moderate pain level 4-7 Albumin Human 50 gm 01/15/18 08:30 01/15/18 09:05 Albumin Human 25% (12.5 Gm/50 Ml) IV 01/16/18 08:28 50 gm Q8H [facility] Administration Cinacalcet 30 mg 01/09/18 09:00 01/14/18 09:17 Sensipar PO 30 mg DAILY [facility] Administration Digoxin 0.25 mg 01/10/18 09:00 01/12/18 09:42 Lanoxin PO 0.25 mg MWF [facility] Administration Docusate Sodium 100 mg 01/12/18 13:00 01/15/18 08:54 Colace PO Not Given BID [facility] Famotidine 20 mg 01/10/18 09:00 01/15/18 09:31 Pepcid PO 20 mg BID [facility] Administration Sodium Chloride 1,000 mls @ 60 mls/hr 01/15/18 15:00 Sodium Chloride 0.9% IV 01/16/18 14:58 .[id number] [facility] Lactulose 20 gm 01/13/18 09:32 01/13/18 13:19 Enulose PO 20 gm BID PRN Administration Constipation Metoprolol Tartrate 25 mg 01/09/18 09:00 01/10/18 09:12 Lopressor PO Not Given DAILY [facility] Midodrine 10 mg 01/10/18 09:00 01/15/18 13:38 Proamatine PO 10 mg Q8 [facility] Administration Multivitamins/Minerals 1 tab 01/09/18 09:00 01/14/18 09:13 Therapeutic-M Tab PO 1 tab DAILY [facility] Administration Ondansetron HCl 4 mg 01/09/18 06:13 Zofran Inj IVP Q6 PRN Nausea/Vomiting Ondansetron HCl 4 mg 01/10/18 09:00 01/15/18 09:31 Zofran Odt PO 4 mg DAILY [facility] Administration Ondansetron HCl 4 mg 01/11/18 17:44 01/13/18 10:38 Zofran Odt PO 4 mg Q8H PRN Administration Nausea/Vomiting Pantoprazole Sodium 40 mg 01/09/18 09:00 01/15/18 09:31 Protonix Ec Tab PO 40 mg DAILY [facility] Administration Prednisone 2.5 mg 01/12/18 17:33 01/12/18 17:54 Prednisone Tab PO 2.5 mg MOFR [facility] Administration Prochlorperazine 10 mg 01/14/18 14:36 01/15/18 05:10 Compazine IVP 10 mg Q8 PRN Administration Nausea/Vomiting Sevelamer HCl 800 mg 01/09/18 09:00 01/15/18 14:42 Renagel PO Not Given TID [facility] Timolol Maleate 1 drop 01/12/18 11:45 01/14/18 09:18 Timoptic 0.5% Ophth Soln OU 1 drop DAILY [facility] Administration Tramadol HCl 50 mg 01/10/18 15:05 01/14/18 01:13 Ultram PO 50 mg Q6 PRN Administration Pain, moderate (4-7) Vancomycin HCl 250 mg 01/15/18 17:00 Vancocin (Oral/Rectal Use) PO Q8 [facility] Protocol - Patient Studies Lab Studies: Lab Studies 01/15/18 01/15/18 01/15/18 Range/Units 11:29 06:23 04:15 WBC (4.8-10.8) K/uL RBC (3.80-5.20) Mil/uL Hgb (12.0-16.0) g/dL Hct (34.0-47.0) % MCV (81.0-99.0) fl MCH (27.0-31.0) pg MCHC (33.0-37.0) g/dL RDW (11.5-14.5) % Plt Count (130-400) K/uL MPV (7.2-11.7) fl Neut % (Auto) (50.0-75.0) % Lymph % (Auto) (20.0-40.0) % [place] % (Auto) (0.0-10.0) % Eos % (Auto) (0.0-4.0) % Baso % (Auto) (0.0-2.0) % Neut # (Auto) (1.8-7.0) K/uL Lymph # (Auto) (1.0-4.3) K/uL [place] # (Auto) (0.0-0.8) K/uL Eos # (Auto) (0.0-0.7) K/uL Baso # (Auto) (0.0-0.2) K/uL Sodium 127 L (132-148) mmol/l Potassium 4.3 (3.6-5.0) MMOL/L Chloride 88 L (98-107) mmol/L Carbon Dioxide 25 (22-30) mmol/L Anion Gap 18 (10-20) BUN 51 H (7-17) mg/dl Creatinine 4.8 H (0.7-1.2) mg/dl Est GFR ( Amer) 11 Est GFR (Non-Af Amer) 9 POC Glucose (mg/dL) 79 96 (65-110) mg/dL Random Glucose 116 H (65-105) mg/dL Calcium 7.5 L (8.4-10.2) mg/dL Phosphorus 4.6 H (2.5-4.5) mg/dl 01/15/18 Range/Units 04:15 WBC 4.4 L (4.8-10.8) K/uL RBC 3.47 L (3.80-5.20) Mil/uL Hgb 10.8 L (12.0-16.0) g/dL Hct 33.4 L (34.0-47.0) % MCV 96.1 (81.0-99.0) fl MCH 31.0 (27.0-31.0) pg MCHC 32.3 L (33.0-37.0) g/dL RDW 15.1 H (11.5-14.5) % Plt Count 183 (130-400) K/uL MPV 9.0 (7.2-11.7) fl Neut % (Auto) 71.8 (50.0-75.0) % Lymph % (Auto) 6.4 L (20.0-40.0) % [place] % (Auto) 21.0 H (0.0-10.0) % Eos % (Auto) 0.6 (0.0-4.0) % Baso % (Auto) 0.2 (0.0-2.0) % Neut # (Auto) 3.2 (1.8-7.0) K/uL Lymph # (Auto) 0.3 L (1.0-4.3) K/uL [place] # (Auto) 0.9 H (0.0-0.8) K/uL Eos # (Auto) 0.0 (0.0-0.7) K/uL Baso # (Auto) 0.0 (0.0-0.2) K/uL Sodium (132-148) mmol/l Potassium (3.6-5.0) MMOL/L Chloride (98-107) mmol/L Carbon Dioxide (22-30) mmol/L Anion Gap (10-20) BUN (7-17) mg/dl Creatinine (0.7-1.2) mg/dl Est GFR ( Amer) Est GFR (Non-Af Amer) POC Glucose (mg/dL) (65-110) mg/dL Random Glucose (65-105) mg/dL Calcium (8.4-10.2) mg/dL Phosphorus (2.5-4.5) mg/dl Laboratory Results - last 24 hr 01/15/18 01/15/18 01/15/18 04:15 04:15 06:23 WBC 4.4 L RBC 3.47 L Hgb 10.8 L Hct 33.4 L MCV 96.1 MCH 31.0 MCHC 32.3 L RDW 15.1 H Plt Count 183 MPV 9.0 Neut % (Auto) 71.8 Lymph % (Auto) 6.4 L [place] % (Auto) 21.0 H Eos % (Auto) 0.6 Baso % (Auto) 0.2 Neut # (Auto) 3.2 Lymph # (Auto) 0.3 L [place] # (Auto) 0.9 H Eos # (Auto) 0.0 Baso # (Auto) 0.0 Sodium 127 L Potassium 4.3 Chloride 88 L Carbon Dioxide 25 Anion Gap 18 BUN 51 H Creatinine 4.8 H Est GFR ( Amer) 11 Est GFR (Non-Af Amer) 9 POC Glucose (mg/dL) 96 Random Glucose 116 H Calcium 7.5 L Phosphorus 4.6 H 01/15/18 11:29 WBC RBC Hgb Hct MCV MCH MCHC RDW Plt Count MPV Neut % (Auto) Lymph % (Auto) [place] % (Auto) Eos % (Auto) Baso % (Auto) Neut # (Auto) Lymph # (Auto) [place] # (Auto) Eos # (Auto) Baso # (Auto) Sodium Potassium Chloride Carbon Dioxide Anion Gap BUN Creatinine Est GFR ( Amer) Est GFR (Non-Af Amer) POC Glucose (mg/dL) 79 Random Glucose Calcium Phosphorus Critical Care Progress Note - Nutrition Nutrition: Nutrition Category Date Time Status Renal Diet [DIET] Diets 01/09/18 Dinner Active
[2018-01-15 16:18] LABS: VENOUS BLOOD GAS BASE EXCESS 3.5 mmol/L (0.0-2.0); VENOUS BLOOD GAS PCO2 47 mmHg (40-60); VENOUS BLOOD GAS PO2 32 mm/Hg (30-55)
[2018-01-15 17:05] LABS: EOS % 0.4 % (0.0-4.0); LYMPH # 0.1 K/uL (1.0-4.3); LYMPH % 3.7 % (20.0-40.0); MEAN CELL VOLUME 94.9 fl (81.0-99.0); MEAN CORPUSCULAR HEMOGLOBIN 31.2 pg (27.0-31.0); MEAN CORPUSCULAR HGB CONC 32.9 g/dL (33.0-37.0); MEAN PLATELET VOLUME 9.2 fl (7.2-11.7); MONO # 0.6 K/uL (0.0-0.8); MONO % 14.2 % (0.0-10.0); NEUT # 3.2 K/uL (1.8-7.0); NEUT % 81.7 % (50.0-75.0); NRBC % 0.2 % (0.0-0.0); PLATELET COUNT 150 K/uL (130-400); RBC 2.89 Mil/uL (3.80-5.20); RED CELL DISTRIBUTION WIDTH 14.9 % (11.5-14.5); WHITE BLOOD COUNT 3.9 K/uL (4.8-10.8)
[2018-01-15 17:14] LABS: INR 1.9 (0.9-1.2); PARTIAL THROMBOPLASTIN TIME 35.3 Seconds (25.6-37.1); PROTHROMBIN TIME 20.9 Seconds (9.8-13.1)
[2018-01-15] MEDS: Vancomycin 500 mg (Oral/Rectal USE) PO SCH (17:21)
[2018-01-15] MEDS: Digoxin 250 mcg (0.25 mg) Tab PO SCH (17:22)
[2018-01-15 17:25] LABS: ALB/GLOB RATIO 1.1 (1.0-2.1); ALBUMIN 2.8 g/dL (3.5-5.0); CALCIUM 7.8 mg/dL (8.4-10.2)
[2018-01-15] MEDS: Multivitamin With Minerals Tab PO SCH (17:25)
[2018-01-15] MEDS ORDERED: Potassium Chloride 20 mEq 100 ML IVPB ONE (17:31)
--- NOTE | 2018-01-15 17:46 | RAD ---
HISTORY: r/o aspiration PNA COMPARISON: 01/09/2018. FINDINGS: LUNGS: The lungs are clear. PLEURA: No significant pleural effusion identified, no pneumothorax apparent. CARDIOVASCULAR: The cardiomediastinal silhouette is stable. OSSEOUS STRUCTURES: No significant abnormalities. VISUALIZED UPPER ABDOMEN: Normal. OTHER FINDINGS: There is stable appearance of a right subclavian and axillary stent grafts. IMPRESSION: No active pulmonary disease.
[2018-01-15 18:18] LABS: LYMPHOCYTE 4 % (20-50); MONOCYTE 10 % (0-10); NEUTROPHIL 86 % (42-75); PLATELET ESTIMATE NORMAL (NORMAL); TOTAL CELLS COUNTED 100
[2018-01-15 18:19] LABS: ANISOCYTOSIS SLIGHT; LARGE PLATELETS PRESENT; MICROCYTOSIS SLIGHT; OVALOCYTES SLIGHT; TEARDROP CELLS SLIGHT
[2018-01-16 07:29] LABS: MEAN CELL VOLUME 96.7 fl (81.0-99.0); MEAN CORPUSCULAR HEMOGLOBIN 31.3 pg (27.0-31.0); MEAN CORPUSCULAR HGB CONC 32.4 g/dL (33.0-37.0); RBC 2.55 Mil/uL (3.80-5.20); RED CELL DISTRIBUTION WIDTH 15.4 % (11.5-14.5)
--- NOTE | 2018-01-16 07:33 | CP.PCM.PN ---
Subjective - Date & Time of Evaluation Date of Evaluation: 01/16/18 Time of Evaluation: 07:30 - Subjective Subjective: Patient seen and examined bedside. Not feeling well. Complains of abdominal distention and discomfort. Unable to sleep overnight. Again with 1 episode of vomiting today dark greenish color .With mucous bowel movements BP on the lower side 95/46 , afebrile Objective - Vital Signs/Intake and Output Vital Signs (last 24 hours): Temp Pulse Resp BP Pulse Ox 97.9 F 77 22 129/55 L 99 01/16/18 04:00 01/16/18 04:00 01/16/18 04:00 01/16/18 04:00 01/16/18 04:00 Intake and Output: 01/16/18 01/16/18 06:59 18:59 Intake Total 150 Balance 150 - Medications Medications: Current Medications Acetaminophen (Tylenol 325mg Tab) 650 mg PO Q6 PRN PRN Reason: moderate pain level 4-7 Last Admin: 01/09/18 18:18 Dose: 650 mg Albumin Human (Albumin Human 25% (12.5 Gm/50 Ml)) 50 gm IV Q8H [facility] Stop: 01/16/18 08:28 Last Admin: 01/15/18 16:58 Dose: 50 gm Cinacalcet (Sensipar) 30 mg PO DAILY [facility] Last Admin: 01/15/18 17:11 Dose: 30 mg Digoxin (Lanoxin) 0.25 mg PO MWF [facility] Last Admin: 01/15/18 17:22 Dose: 0.25 mg Docusate Sodium (Colace) 100 mg PO BID [facility] Last Admin: 01/15/18 17:25 Dose: 100 mg Famotidine (Pepcid) 20 mg PO BID [facility] Last Admin: 01/15/18 17:11 Dose: 20 mg Lactulose (Enulose) 20 gm PO BID PRN PRN Reason: Constipation Last Admin: 01/13/18 13:19 Dose: 20 gm Metoprolol Tartrate (Lopressor) 25 mg PO DAILY [facility] Last Admin: 01/10/18 09:12 Dose: Not Given Midodrine (Proamatine) 10 mg PO Q8 [facility] Last Admin: 01/15/18 17:12 Dose: 10 mg Multivitamins/Minerals (Therapeutic-M Tab) 1 tab PO DAILY [facility] Last Admin: 01/15/18 17:25 Dose: Not Given Ondansetron HCl (Zofran Inj) 4 mg IVP Q6 PRN PRN Reason: Nausea/Vomiting Ondansetron HCl (Zofran Odt) 4 mg PO DAILY [facility] Last Admin: 01/15/18 09:31 Dose: 4 mg Ondansetron HCl (Zofran Odt) 4 mg PO Q8H PRN PRN Reason: Nausea/Vomiting Last Admin: 01/13/18 10:38 Dose: 4 mg Pantoprazole Sodium (Protonix Ec Tab) 40 mg PO DAILY [facility] Last Admin: 01/15/18 09:31 Dose: 40 mg Prednisone (Prednisone Tab) 2.5 mg PO MOFR [facility] Last Admin: 01/15/18 17:12 Dose: 2.5 mg Prochlorperazine (Compazine) 10 mg IVP Q8 PRN PRN Reason: Nausea/Vomiting Last Admin: 01/15/18 05:10 Dose: 10 mg Sevelamer HCl (Renagel) 800 mg PO TID [facility] Last Admin: 01/15/18 17:24 Dose: Not Given Timolol Maleate (Timoptic 0.5% [facility]) 1 drop OU DAILY [facility] Last Admin: 01/15/18 17:02 Dose: 1 drop Tramadol HCl (Ultram) 50 mg PO Q6 PRN PRN Reason: Pain, moderate (4-7) Last Admin: 01/16/18 06:21 Dose: 50 mg Vancomycin HCl (Vancocin (Oral/Rectal Use)) 250 mg PO Q8 [facility] PRN Reason: Protocol Last Admin: 01/15/18 17:21 Dose: 250 mg - Labs Labs: 01/15/18 16:54 01/15/18 16:54 PT 20.9 Seconds (9.8-13.1) H 01/15/18 16:54 INR 1.9 (0.9-1.2) H 01/15/18 16:54 APTT 35.3 Seconds (25.6-37.1) 01/15/18 16:54 - Constitutional Appears: Chronically Ill - Head Exam Head Exam: ATRAUMATIC, NORMAL INSPECTION, NORMOCEPHALIC - Eye Exam Eye Exam: EOMI, Normal appearance, PERRL Pupil Exam: NORMAL ACCOMODATION - ENT Exam ENT Exam: Mucous Membranes Moist, Normal Exam - Neck Exam Neck Exam: Full ROM, Normal Inspection - Respiratory Exam Respiratory Exam: Clear to Ausculation Bilateral, NORMAL BREATHING PATTERN. absent: Rhonchi, Wheezes - Cardiovascular Exam Cardiovascular Exam: Irregular Rhythm, +S1. absent: JVD - GI/Abdominal Exam GI & Abdominal Exam: Distended (ascites ), Normal Bowel Sounds. absent: Guarding, Rigid - Rectal Exam Rectal Exam: Deferred - Extremities Exam Extremities Exam: Normal Capillary Refill, Normal Inspection. absent: Calf Tenderness - Back Exam Back Exam: NORMAL INSPECTION - Neurological Exam Neurological Exam: Alert, Awake, CN II-XII Intact, Oriented x3 - Psychiatric Exam Psychiatric exam: Normal Affect - Skin Skin Exam: Dry, Pallor, Warm Assessment and Plan - Assessment and Plan (Free Text) Assessment: 77 y/o lady with Hx of ESRD on HD, Cirrhosis with ascites requiring at least 2x per month Paracentesis, was brought in because of abdominal pain. Patient missed her dialysis last Monday because of the pain. In the ED - patient was noted to be slightly hypotensive with BP in the 80 systolic and her Lactate was elevated at 2.4 - she was then admitted to ICU and started on Levophed. CT of the abdomen showed 1. Cirrhosis of liver, large abdominal and pelvic ascites. 2. Small loculated right pleural effusion with pleural calcifications. 3. Stable noncalcified nodules in the right lower lobe, the largest measures 8 mm. In a low risk patient follow-up in 12 month interval and in a high-risk patient follow-up in six-month interval is recommended to assess stability 4. Cholelithiasis. 5. Polycystic kidneys. Her stool work up reported positive for c.diff and she was started on Vanco Po. Received IV albumin and HD yesterday. Eliquist on hold for abdominal parasenthesis in AM. 1. ESRD on HD with Hyperkalemia secondary to missed HD K =7.8 on admission now resolved Pt had emergent HD done on admission cont TIW HD Nephrology following pt cont Renagel discussed with Dr. Gutiérrez. Patient will go for parasethesis tomorrow so will hold off HD since her BP is on the lower side Will do HD on and transfuse 2 Abdominal pain sec to Ascites and C . diff colitis SBP ruled out s/p Paracentesis done by IR on 01/10. Will repeat in AM ( Eliquist on hold for 48 hours ) Ascitic fluid analysis : negative for infection Patient received IV Genta and Vanco yesterday post HD Stool for C diff positive . Started on PO Vanco . Has history of multiple C.diff colitis and stool transplant . Procalcitonin and lactate elevated ID on consult Dr Maxwell 3. Hypotension OFF Levophed pt has low baseline BP and is on Midodrine at home Increased Midodrine to 10 mg TID 4. Chronic A Fib rate controlled on digoxin Eliquist on hold for procedure 5. Cirrhosis with ascites, Thrombocytopenia cont Paracentesis prn Steroids PO for thrombocytopenia Patient follows up with GI in [place] 6.Anemia of chronic disease Hgb 8 Started epopoetin Will transfuse with HD 7. DVT prophylaxis SCD Eliquis on hold
[2018-01-16 07:38] LABS: CALCIUM 7.4 mg/dL (8.4-10.2)
[2018-01-16 07:48] LABS: WHITE BLOOD COUNT 6.7 K/uL (4.8-10.8)
[2018-01-16] MEDS: Albumin Human 25% (12.5 gm/50 ml) IV SCH ×2 (08:22→09:45)
[2018-01-16] MEDS: Multivitamin With Minerals Tab PO SCH (08:24)
[2018-01-16] MEDS: Vancomycin 500 mg (Oral/Rectal USE) PO SCH ×3 (08:28→16:45)
--- NOTE | 2018-01-16 10:02 | CP.PCM.PN ---
Subjective - Date & Time of Evaluation Date of Evaluation: 01/16/18 Time of Evaluation: 11:00 - Subjective Subjective: ID Note- pt. seen and examined today in ICU. slightly less drowsy today. as per nurse had 2 small mucus like BM today. no fever or chills. Objective - Vital Signs/Intake and Output Vital Signs (last 24 hours): Temp Pulse Resp BP Pulse Ox 98.6 F 79 24 124/88 93 L 01/16/18 08:00 01/16/18 08:00 01/16/18 08:00 01/16/18 08:00 01/16/18 08:00 Intake and Output: 01/16/18 01/16/18 06:59 18:59 Intake Total 150 50 Balance 150 50 - Medications Medications: Current Medications Acetaminophen (Tylenol 325mg Tab) 650 mg PO Q6 PRN PRN Reason: moderate pain level 4-7 Last Admin: 01/09/18 18:18 Dose: 650 mg Cinacalcet (Sensipar) 30 mg PO DAILY [facility] Last Admin: 01/16/18 08:25 Dose: 30 mg Digoxin (Lanoxin) 0.25 mg PO MWF [facility] Last Admin: 01/15/18 17:22 Dose: 0.25 mg Docusate Sodium (Colace) 100 mg PO BID [facility] Last Admin: 01/16/18 08:25 Dose: 100 mg Famotidine (Pepcid) 20 mg PO BID [facility] Last Admin: 01/16/18 08:25 Dose: 20 mg Lactulose (Enulose) 20 gm PO BID PRN PRN Reason: Constipation Last Admin: 01/13/18 13:19 Dose: 20 gm Metoprolol Tartrate (Lopressor) 25 mg PO DAILY [facility] Last Admin: 01/10/18 09:12 Dose: Not Given Midodrine (Proamatine) 10 mg PO Q8 [facility] Last Admin: 01/16/18 10:01 Dose: Not Given Multivitamins/Minerals (Therapeutic-M Tab) 1 tab PO DAILY [facility] Last Admin: 01/16/18 08:24 Dose: 1 tab Ondansetron HCl (Zofran Inj) 4 mg IVP Q6 PRN PRN Reason: Nausea/Vomiting Ondansetron HCl (Zofran Odt) 4 mg PO DAILY [facility] Last Admin: 01/16/18 08:24 Dose: 4 mg Ondansetron HCl (Zofran Odt) 4 mg PO Q8H PRN PRN Reason: Nausea/Vomiting Last Admin: 01/13/18 10:38 Dose: 4 mg Pantoprazole Sodium (Protonix Ec Tab) 40 mg PO DAILY [facility] Last Admin: 01/15/18 09:31 Dose: 40 mg Prednisone (Prednisone Tab) 2.5 mg PO MOFR [facility] Last Admin: 01/15/18 17:12 Dose: 2.5 mg Prochlorperazine (Compazine) 10 mg IVP Q8 PRN PRN Reason: Nausea/Vomiting Last Admin: 01/15/18 05:10 Dose: 10 mg Sevelamer HCl (Renagel) 800 mg PO TID [facility] Last Admin: 01/16/18 08:24 Dose: 800 mg Timolol Maleate (Timoptic 0.5% [facility]) 1 drop OU DAILY [facility] Last Admin: 01/16/18 08:25 Dose: 1 drop Tramadol HCl (Ultram) 50 mg PO Q6 PRN PRN Reason: Pain, moderate (4-7) Last Admin: 01/16/18 06:21 Dose: 50 mg Vancomycin HCl (Vancocin (Oral/Rectal Use)) 250 mg PO Q8 [facility] PRN Reason: Protocol Last Admin: 01/16/18 08:28 Dose: 250 mg - Labs Labs: - Additional Findings Additional findings: - Constitutional Appears: Non-toxic, No Acute Distress - Head Exam Head Exam: ATRAUMATIC - Eye Exam Eye Exam: EOMI, PERRL - ENT Exam ENT Exam: Normal Oropharynx - Neck Exam Neck exam: Positive for: Full Rom - Respiratory Exam Respiratory Exam: Clear to Auscultation Bilateral, NORMAL BREATHING PATTERN - Cardiovascular Exam Cardiovascular Exam: RRR, +S1, +S2 - GI/Abdominal Exam Additional comments: soft, distended, + ascites minimal tenderness throughout abdomen but no guarding, no rebound + BS - Extremities Exam Additional comments: no edema B/L LE Right arm HD access site , clean , no erythema - Neurological Exam Neurological exam: drowsy but oriented x 3 Laboratory Results - last 72 hr 01/11/18 01/11/18 01/13/18 11:54 14:56 21:15 WBC RBC Hgb Hct MCV MCH MCHC RDW Plt Count MPV Neut % (Auto) Lymph % (Auto) [place] % (Auto) Eos % (Auto) Baso % (Auto) Neut # (Auto) Lymph # (Auto) [place] # (Auto) Eos # (Auto) Baso # (Auto) Neutrophils % (Manual) Lymphocytes % (Manual) Monocytes % (Manual) Platelet Estimate Large Platelets Anisocytosis (manual) Microcytosis (manual) Tear Drop Cells Ovalocytes PT INR APTT pO2 VBG pH VBG pCO2 VBG HCO3 VBG Total CO2 VBG O2 Sat (Calc) VBG Base Excess VBG Potassium Glucose Lactate FiO2 Sodium Potassium Chloride Carbon Dioxide Anion Gap BUN Creatinine Est GFR ( Amer) Est GFR (Non-Af Amer) POC Glucose (mg/dL) 100 Random Glucose Calcium Phosphorus Total Bilirubin AST ALT Alkaline Phosphatase Total Protein Albumin Globulin Albumin/Globulin Ratio Lipase Alpha Fetoprotein Procalcitonin Venous Blood Potassium C. difficile Tox B Gene Detected H C. difficile Ag & Toxin Positive H 01/14/18 01/14/18 01/14/18 05:34 05:34 11:16 WBC 4.5 L RBC 3.53 L Hgb 11.2 L Hct 33.9 L MCV 96.0 MCH 31.6 H MCHC 32.9 L RDW 15.5 H Plt Count 172 MPV Neut % (Auto) Lymph % (Auto) [place] % (Auto) Eos % (Auto) Baso % (Auto) Neut # (Auto) Lymph # (Auto) [place] # (Auto) Eos # (Auto) Baso # (Auto) Neutrophils % (Manual) Lymphocytes % (Manual) Monocytes % (Manual) Platelet Estimate Large Platelets Anisocytosis (manual) Microcytosis (manual) Tear Drop Cells Ovalocytes PT INR APTT pO2 VBG pH VBG pCO2 VBG HCO3 VBG Total CO2 VBG O2 Sat (Calc) VBG Base Excess VBG Potassium Glucose Lactate FiO2 Sodium 132 Potassium 4.2 Chloride 92 L Carbon Dioxide 28 Anion Gap 16 BUN 46 H Creatinine 4.3 H Est GFR ( Amer) 12 Est GFR (Non-Af Amer) 10 POC Glucose (mg/dL) 88 Random Glucose 106 H Calcium 7.7 L Phosphorus Total Bilirubin AST ALT Alkaline Phosphatase Total Protein Albumin Globulin Albumin/Globulin Ratio Lipase Alpha Fetoprotein Procalcitonin Venous Blood Potassium C. difficile Tox B Gene C. difficile Ag & Toxin 01/15/18 01/15/18 01/15/18 04:15 04:15 06:23 WBC 4.4 L RBC 3.47 L Hgb 10.8 L Hct 33.4 L MCV 96.1 MCH 31.0 MCHC 32.3 L RDW 15.1 H Plt Count 183 MPV 9.0 Neut % (Auto) 71.8 Lymph % (Auto) 6.4 L [place] % (Auto) 21.0 H Eos % (Auto) 0.6 Baso % (Auto) 0.2 Neut # (Auto) 3.2 Lymph # (Auto) 0.3 L [place] # (Auto) 0.9 H Eos # (Auto) 0.0 Baso # (Auto) 0.0 Neutrophils % (Manual) Lymphocytes % (Manual) Monocytes % (Manual) Platelet Estimate Large Platelets Anisocytosis (manual) Microcytosis (manual) Tear Drop Cells Ovalocytes PT INR APTT pO2 VBG pH VBG pCO2 VBG HCO3 VBG Total CO2 VBG O2 Sat (Calc) VBG Base Excess VBG Potassium Glucose Lactate FiO2 Sodium 127 L Potassium 4.3 Chloride 88 L Carbon Dioxide 25 Anion Gap 18 BUN 51 H Creatinine 4.8 H Est GFR ( Amer) 11 Est GFR (Non-Af Amer) 9 POC Glucose (mg/dL) 96 Random Glucose 116 H Calcium 7.5 L Phosphorus 4.6 H Total Bilirubin AST ALT Alkaline Phosphatase Total Protein Albumin Globulin Albumin/Globulin Ratio Lipase Alpha Fetoprotein Procalcitonin Venous Blood Potassium C. difficile Tox B Gene C. difficile Ag & Toxin 01/15/18 01/15/18 01/15/18 11:29 16:14 16:40 WBC RBC Hgb Hct MCV MCH MCHC RDW Plt Count MPV Neut % (Auto) Lymph % (Auto) [place] % (Auto) Eos % (Auto) Baso % (Auto) Neut # (Auto) Lymph # (Auto) [place] # (Auto) Eos # (Auto) Baso # (Auto) Neutrophils % (Manual) Lymphocytes % (Manual) Monocytes % (Manual) Platelet Estimate Large Platelets Anisocytosis (manual) Microcytosis (manual) Tear Drop Cells Ovalocytes PT INR APTT pO2 32 VBG pH 7.40 VBG pCO2 47 VBG HCO3 26.7 VBG Total CO2 30.5 H VBG O2 Sat (Calc) 68.6 H VBG Base Excess 3.5 H VBG Potassium 3.2 L Glucose 87 Lactate 0.8 FiO2 24.0 Sodium 130.0 L Potassium Chloride 95.0 L Carbon Dioxide Anion Gap BUN Creatinine Est GFR ( Amer) Est GFR (Non-Af Amer) POC Glucose (mg/dL) 79 80 Random Glucose Calcium Phosphorus Total Bilirubin AST ALT Alkaline Phosphatase Total Protein Albumin Globulin Albumin/Globulin Ratio Lipase Alpha Fetoprotein Procalcitonin Venous Blood Potassium 3.2 L C. difficile Tox B Gene C. difficile Ag & Toxin 01/15/18 01/15/18 01/15/18 16:54 16:54 16:54 WBC 3.9 L RBC 2.89 L Hgb 9.0 L Hct 27.4 L MCV 94.9 MCH 31.2 H MCHC 32.9 L RDW 14.9 H Plt Count 150 MPV 9.2 Neut % (Auto) 81.7 H Lymph % (Auto) 3.7 L [place] % (Auto) 14.2 H Eos % (Auto) 0.4 Baso % (Auto) 0.0 Neut # (Auto) 3.2 Lymph # (Auto) 0.1 L [place] # (Auto) 0.6 Eos # (Auto) 0.0 Baso # (Auto) 0.0 Neutrophils % (Manual) 86 H Lymphocytes % (Manual) 4 L Monocytes % (Manual) 10 Platelet Estimate Normal Large Platelets Present Anisocytosis (manual) Slight Microcytosis (manual) Slight Tear Drop Cells Slight Ovalocytes Slight PT 20.9 H INR 1.9 H APTT 35.3 pO2 VBG pH VBG pCO2 VBG HCO3 VBG Total CO2 VBG O2 Sat (Calc) VBG Base Excess VBG Potassium Glucose Lactate FiO2 Sodium Potassium Chloride Carbon Dioxide Anion Gap BUN Creatinine Est GFR ( Amer) Est GFR (Non-Af Amer) POC Glucose (mg/dL) Random Glucose Calcium Phosphorus Total Bilirubin AST ALT Alkaline Phosphatase Total Protein Albumin Globulin Albumin/Globulin Ratio Lipase Alpha Fetoprotein 1.2 Procalcitonin Venous Blood Potassium C. difficile Tox B Gene C. difficile Ag & Toxin 01/15/18 01/15/18 01/15/18 16:54 16:54 21:24 WBC RBC Hgb Hct MCV MCH MCHC RDW Plt Count MPV Neut % (Auto) Lymph % (Auto) [place] % (Auto) Eos % (Auto) Baso % (Auto) Neut # (Auto) Lymph # (Auto) [place] # (Auto) Eos # (Auto) Baso # (Auto) Neutrophils % (Manual) Lymphocytes % (Manual) Monocytes % (Manual) Platelet Estimate Large Platelets Anisocytosis (manual) Microcytosis (manual) Tear Drop Cells Ovalocytes PT INR APTT pO2 VBG pH VBG pCO2 VBG HCO3 VBG Total CO2 VBG O2 Sat (Calc) VBG Base Excess VBG Potassium Glucose Lactate FiO2 Sodium 134 Potassium 3.0 L Chloride 93 L Carbon Dioxide 27 Anion Gap 17 BUN 21 H Creatinine 2.0 H Est GFR ( Amer) 29 Est GFR (Non-Af Amer) 24 POC Glucose (mg/dL) 79 Random Glucose 86 Calcium 7.8 L Phosphorus Total Bilirubin 1.5 H AST 25 ALT 31 Alkaline Phosphatase 103 Total Protein 5.3 L Albumin 2.8 L Globulin 2.5 Albumin/Globulin Ratio 1.1 Lipase 62 Alpha Fetoprotein Procalcitonin 17.59 H Venous Blood Potassium C. difficile Tox B Gene C. difficile Ag & Toxin 01/16/18 01/16/18 01/16/18 06:00 06:00 18:43 WBC 6.7 D RBC 2.55 L Hgb 8.0 L Hct 24.7 L MCV 96.7 MCH 31.3 H MCHC 32.4 L RDW 15.4 H Plt Count 160 MPV Neut % (Auto) Lymph % (Auto) [place] % (Auto) Eos % (Auto) Baso % (Auto) Neut # (Auto) Lymph # (Auto) [place] # (Auto) Eos # (Auto) Baso # (Auto) Neutrophils % (Manual) Lymphocytes % (Manual) Monocytes % (Manual) Platelet Estimate Large Platelets Anisocytosis (manual) Microcytosis (manual) Tear Drop Cells Ovalocytes PT INR APTT pO2 VBG pH VBG pCO2 VBG HCO3 VBG Total CO2 VBG O2 Sat (Calc) VBG Base Excess VBG Potassium Glucose Lactate FiO2 Sodium 135 Potassium 4.4 Chloride 92 L Carbon Dioxide 25 Anion Gap 22 H BUN 43 H Creatinine 4.0 H Est GFR ( Amer) 13 Est GFR (Non-Af Amer) 11 POC Glucose (mg/dL) 92 Random Glucose 67 Calcium 7.4 L Phosphorus Total Bilirubin AST ALT Alkaline Phosphatase Total Protein Albumin Globulin Albumin/Globulin Ratio Lipase Alpha Fetoprotein Procalcitonin Venous Blood Potassium C. difficile Tox B Gene C. difficile Ag & Toxin Microbiology 01/15/18 18:00 Blood-Thru Central Line Blood Culture - Preliminary NO GROWTH AFTER 24 HOURS 01/10/18 14:12 Ascitic Fluid Gram Stain - Final 01/10/18 14:12 Ascitic Fluid Body Fluid Culture - Final No growth. 01/09/18 03:15 Blood-Venous Blood Culture - Final NO GROWTH AFTER 5 DAYS 01/09/18 03:15 Blood-Venous Gram Stain - Final TEST NOT PERFORMED 01/09/18 03:33 Blood-Venous Blood Culture - Final NO GROWTH AFTER 5 DAYS 01/09/18 03:33 Blood-Venous Gram Stain - Final TEST NOT PERFORMED 01/09/18 18:36 Naris MRSA Culture (Admit) - Final MRSA NOT DETECTED Assessment and Plan (1) Ascites Status: Acute (2) ESRD (end stage renal disease) on dialysis Status: Acute (3) Abdominal pain Status: Acute (4) C. 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 afebrile normal wbc count ascitic fluid cell count not c/w sbp. cxr no infiltrates , right lung Pleural effusion reported on CT . blood cx- neg x 2 ascites fluid gram stain - Cx negative stool c.diff - positive for both AG and toxin reported today from 01/11/2018 plan- continue with oral vanco for + stool c.diff AG and toxin. ascites management as per GI and ICU team. HD as per renal. ICU time 45 minutes. .
--- NOTE | 2018-01-16 11:56 | CP.PCM.PN ---
Subjective - Date & Time of Evaluation Date of Evaluation: 01/16/18 Time of Evaluation: 11:54 - Subjective Subjective: She was seen in intensive care unit The daughter at the bedside which has been discussed with her and the nurse in ICU room. Patient was vomiting right now.material and greenish perhaps blackish I'm not sure if it's bloody? Patient complaining of abdomen pain intermittently and she did not vomit since yesterday last night. Patient completed hemodialysis yesterday. Objective - Vital Signs/Intake and Output Vital Signs (last 24 hours): Temp Pulse Resp BP Pulse Ox 98.6 F 70 20 99/48 L 100 01/16/18 08:00 01/16/18 10:00 01/16/18 10:00 01/16/18 10:00 01/16/18 10:00 Intake and Output: 01/16/18 01/16/18 06:59 18:59 Intake Total 150 50 Balance 150 50 - Medications Medications: Current Medications Acetaminophen (Tylenol 325mg Tab) 650 mg PO Q6 PRN PRN Reason: moderate pain level 4-7 Last Admin: 01/09/18 18:18 Dose: 650 mg Cinacalcet (Sensipar) 30 mg PO DAILY [facility] Last Admin: 01/16/18 08:25 Dose: 30 mg Digoxin (Lanoxin) 0.25 mg PO MWF [facility] Last Admin: 01/15/18 17:22 Dose: 0.25 mg Docusate Sodium (Colace) 100 mg PO BID [facility] Last Admin: 01/16/18 08:25 Dose: 100 mg Famotidine (Pepcid) 20 mg PO BID [facility] Last Admin: 01/16/18 08:25 Dose: 20 mg Lactulose (Enulose) 20 gm PO BID PRN PRN Reason: Constipation Last Admin: 01/13/18 13:19 Dose: 20 gm Metoprolol Tartrate (Lopressor) 25 mg PO DAILY [facility] Last Admin: 01/10/18 09:12 Dose: Not Given Midodrine (Proamatine) 10 mg PO Q8 [facility] Last Admin: 01/16/18 10:01 Dose: Not Given Multivitamins/Minerals (Therapeutic-M Tab) 1 tab PO DAILY [facility] Last Admin: 01/16/18 08:24 Dose: 1 tab Ondansetron HCl (Zofran Inj) 4 mg IVP Q6 PRN PRN Reason: Nausea/Vomiting Ondansetron HCl (Zofran Odt) 4 mg PO DAILY [facility] Last Admin: 01/16/18 08:24 Dose: 4 mg Ondansetron HCl (Zofran Odt) 4 mg PO Q8H PRN PRN Reason: Nausea/Vomiting Last Admin: 01/13/18 10:38 Dose: 4 mg Pantoprazole Sodium (Protonix Ec Tab) 40 mg PO DAILY [facility] Last Admin: 01/15/18 09:31 Dose: 40 mg Prednisone (Prednisone Tab) 2.5 mg PO MOFR [facility] Last Admin: 01/15/18 17:12 Dose: 2.5 mg Prochlorperazine (Compazine) 10 mg IVP Q8 PRN PRN Reason: Nausea/Vomiting Last Admin: 01/16/18 11:18 Dose: 10 mg Sevelamer HCl (Renagel) 800 mg PO TID [facility] Last Admin: 01/16/18 08:24 Dose: 800 mg Timolol Maleate (Timoptic 0.5% [facility]) 1 drop OU DAILY [facility] Last Admin: 01/16/18 08:25 Dose: 1 drop Tramadol HCl (Ultram) 50 mg PO Q6 PRN PRN Reason: Pain, moderate (4-7) Last Admin: 01/16/18 06:21 Dose: 50 mg Vancomycin HCl (Vancocin (Oral/Rectal Use)) 250 mg PO Q8 [facility] PRN Reason: Protocol Last Admin: 01/16/18 08:28 Dose: 250 mg - Labs Labs: 01/16/18 06:00 01/16/18 06:00 PT 20.9 Seconds (9.8-13.1) H 01/15/18 16:54 INR 1.9 (0.9-1.2) H 01/15/18 16:54 APTT 35.3 Seconds (25.6-37.1) 01/15/18 16:54 - Constitutional Appears: No Acute Distress - Eye Exam Eye Exam: Conjunctival injection - ENT Exam ENT Exam: Mucous Membranes Moist - Neck Exam Neck Exam: absent: Lymphadenopathy - Respiratory Exam Respiratory Exam: NORMAL BREATHING PATTERN. absent: Chest Wall Tenderness - Cardiovascular Exam Cardiovascular Exam: absent: Gallop, JVD, Rubs - GI/Abdominal Exam GI & Abdominal Exam: Guarding, Soft, Normal Bowel Sounds - Extremities Exam Extremities Exam: absent: Calf Tenderness - Back Exam Back Exam: absent: CVA tenderness (L), CVA tenderness (R) - Neurological Exam Neurological Exam: Alert - Psychiatric Exam Psychiatric exam: Normal Affect Assessment and Plan (1) Abdominal pain Status: Acute (2) Ascites Status: Acute (3) ESRD (end stage renal disease) on dialysis Assessment & Plan: Hyponatremia has been corrected serum sodium came up to 135 after dialysis. Hemoglobin has been dropping the latest hemoglobin 8.0 suggested strongly to transfuse 1 or 2 unit of packed cells tomorrow on dialysis. Workup for abdominal pain as per primary team in the intensive care unit. Infectious disease on the case. #1End stage renal disease Having difficulty to dialysis because of the hypotension despite she was given albumin and dopamin. receiving HD tomorrow and then MWF for next week to give more albumin. #2 ascitis status post paracentesis #3 abdominal pain improving somewhat #4 chf history and volume overloaded. #5 H/O pericardial effusion, #6 hypotension #7 hypoalbuminemia patient need nutritional counseling with the dietitian. #8 history of hyperphosphatemia and secondary hyperparathyroidism #9 debility Patient is going for paracentesis for tomorrow. Continue to give albumin on hemodialysis. Prognosis guarded patient is very frail. Anemia.add EPO . Status: Acute
--- NOTE | 2018-01-16 12:54 | US ---
Date of Procedure: 01/10/2018 PROCEDURE: Ultrasound-guided paracentesis, CPT 59962 Medications: 7 cc 1% Lidocaine HISTORY: Ascites, abdominal pain TECHNIQUE: Following informed consent , the patient was placed supine on the stretcher and the site was marked. A limited abdominal ultrasound was performed that showed a small amount of intra-abdominal fluid. Procedural time out was called and the Pt's abdomen was marked and prepped and draped in the usual sterile fashion. Ultrasound-guided paracentesis performed. A total of 1.6 liters of straw colored fluid was removed without complication. Fluid specimen was sent for culture, sensitivity, cytology and chemistries. IMPRESSION: Ultrasound-guided paracentesis.
--- NOTE | 2018-01-16 14:39 | CARD ---
APPROVED REPORT EXAM: Two-dimensional and M-mode echocardiogram with Doppler and color Doppler. Other Information Quality : GoodRhythm : NSR INDICATION LV Function:SystolicDiastolic 2D DIMENSIONS IVSd1.12 (0.7-1.1cm)LVDd4.44 (3.9-5.9cm) LVOT Diameter1.93 (1.8-2.4cm)PWd1.01 (0.7-1.1cm) IVSs1.33 (0.8-1.2cm)LVDs3.81 (2.5-4.0cm) FS (%) 14.2 %PWs1.09 (0.8-1.2cm) M-Mode DIMENSIONS Left Atrium (MM)5.59 (2.5-4.0cm)IVSd1.29 (0.7-1.1cm) Aortic Root2.97 (2.2-3.7cm)LVDd4.97 (4.0-5.6cm) Aortic Cusp Exc.1.62 (1.5-2.0cm)PWd1.26 (0.7-1.1cm) IVSs1.94 cmFS (%) 46 % LVDs2.68 (2.0-3.8cm)PWs1.71 cm Aortic Valve AI P 1/2 [id number] Mitral Valve E/A ratio0.0 TDI E/Lateral E'0.0E/Medial E'0.0 Pulmonary Valve PV Peak [id number]/s Tricuspid Valve TR Peak [id number] Peak Gr.24mmHg [id number] LEFT VENTRICLE The left ventricle is normal size. There is moderate concentric left ventricular hypertrophy. Left ventricle systolic function is normal. There is normal LV segmental wall motion. Pt in A Fib. RIGHT VENTRICLE The right ventricle is mildly dilated. There is normal right ventricular wall thickness. The right ventricular systolic function is normal. ATRIA The left atrium is severely dilated. The right atrium is severely dilated. A pacing lead was seen traversing the tricuspid valve. AORTIC VALVE The aortic valve is moderately sclerotic. There is moderate aortic regurgitation. There is no aortic valvular stenosis. MITRAL VALVE The mitral valve is normal in structure. There is no evidence of mitral valve prolapse. There is no mitral valve stenosis. There is no mitral valve regurgitation noted. TRICUSPID VALVE The tricuspid valve is normal in structure. There is severe tricuspid regurgitation. Right ventricular systolic pressure is estimated at 46 mmHg. There is moderate pulmonary hypertension. PULMONIC VALVE The pulmonary valve is normal in structure. There is mild pulmonic valvular regurgitation. GREAT VESSELS The aortic root is normal in size. The IVC was not visualized. PERICARDIAL EFFUSION The pericardium appears normal. <Conclusion> Echo images were poor in quality. The left ventricle is normal size. There is moderate concentric left ventricular hypertrophy. There is normal LV segmental wall motion. Left ventricle systolic function is normal. The left atrium is severely dilated. The right atrium is severely dilated. There is moderate aortic regurgitation. There is severe tricuspid regurgitation. There is moderate pulmonary hypertension.
--- NOTE | 2018-01-16 14:47 | CP.CCUPN ---
CCU Subjective - Physician Review Events Since Last Encounter (Free Text): 01/16/18 14:45 abdominal distention, mild discomfort. CCU Objective - Vital Signs / Intake & Output Vital Signs (Last 4 hours): Vital Signs Temp Pulse Resp BP Pulse Ox 01/16/18 13:58 71 21 91/42 L 100 01/16/18 12:00 98.7 F 68 20 83/41 L 100 Intake and Output (Last 8hrs): Intake & Output 01/15/18 01/16/18 01/16/18 22:59 06:59 14:59 Intake Total 1070 520 Output Total 150 300 Balance 920 220 Weight 121 lb 8 oz Intake: IV 650 250 Intake, Piggyback 100 150 Oral 120 120 Albumin 200 Output: Emesis 150 300 Other: # Bowel Movements 0 1 - Physical Exam Head: Positive for: Atraumatic, Normocephalic Pupils: Positive for: PERRL Extroacular Muscles: Positive for: EOMI Conjunctiva: Positive for: Normal Ears: Positive for: Normal Mouth: Positive for: Moist Mucous Membranes Neck: Positive for: Normal Range of Motion Respiratory/Chest: Positive for: Clear to Auscultation Cardiovascular: Positive for: Regular Rate and Rhythm Abdomen: Positive for: Distention, Other (tense). Negative for: Tenderness Neurological: Positive for: GCS=15, CN II-XII Intact Psychiatric: Positive for: Alert, Oriented x 3 - Medications Active Medications: Active Medications Generic Name Dose Route Start Last Admin Trade Name Freq PRN Reason Stop Dose Admin Acetaminophen 650 mg 01/09/18 17:10 01/09/18 18:18 Tylenol 325mg Tab PO 650 mg Q6 PRN Administration moderate pain level 4-7 Cinacalcet 30 mg 01/09/18 09:00 01/16/18 08:25 Sensipar PO 30 mg DAILY JOAQUIN Administration Digoxin 0.25 mg 01/10/18 09:00 01/15/18 17:22 Lanoxin PO 0.25 mg MWF JOAQUIN Administration Docusate Sodium 100 mg 01/12/18 13:00 01/16/18 08:25 Colace PO 100 mg BID JOAQUIN Administration Famotidine 20 mg 01/10/18 09:00 01/16/18 08:25 Pepcid PO 20 mg BID JOAQUIN Administration Lactulose 20 gm 01/13/18 09:32 01/13/18 13:19 Enulose PO 20 gm BID PRN Administration Constipation Metoprolol Tartrate 25 mg 01/09/18 09:00 01/10/18 09:12 Lopressor PO Not Given DAILY JOAQUIN Midodrine 10 mg 01/10/18 09:00 01/16/18 10:01 Proamatine PO Not Given Q8 JOAQUIN Multivitamins/Minerals 1 tab 01/09/18 09:00 01/16/18 08:24 Therapeutic-M Tab PO 1 tab DAILY JOAQUIN Administration Ondansetron HCl 4 mg 01/09/18 06:13 Zofran Inj IVP Q6 PRN Nausea/Vomiting Ondansetron HCl 4 mg 01/10/18 09:00 01/16/18 08:24 Zofran Odt PO 4 mg DAILY JOAQUIN Administration Ondansetron HCl 4 mg 01/11/18 17:44 01/13/18 10:38 Zofran Odt PO 4 mg Q8H PRN Administration Nausea/Vomiting Pantoprazole Sodium 40 mg 01/09/18 09:00 01/15/18 09:31 Protonix Ec Tab PO 40 mg DAILY JOAQUIN Administration Prednisone 2.5 mg 01/12/18 17:33 01/15/18 17:12 Prednisone Tab PO 2.5 mg MOFR JOAQUIN Administration Prochlorperazine 10 mg 01/14/18 14:36 01/16/18 11:18 Compazine IVP 10 mg Q8 PRN Administration Nausea/Vomiting Sevelamer HCl 800 mg 01/09/18 09:00 01/16/18 12:32 Renagel PO 800 mg TID JOAQUIN Administration Timolol Maleate 1 drop 01/12/18 11:45 01/16/18 08:25 Timoptic 0.5% Ophth Soln OU 1 drop DAILY JOAQUIN Administration Tramadol HCl 50 mg 01/16/18 04:45 01/16/18 06:21 Ultram PO 50 mg Q6 PRN Administration Pain, moderate (4-7) Vancomycin HCl 250 mg 01/15/18 17:00 01/16/18 08:28 Vancocin (Oral/Rectal Use) PO 250 mg Q8 JOAQUIN Administration Protocol - Patient Studies Lab Studies: Lab Studies 01/16/18 01/16/18 01/15/18 Range/Units 06:00 06:00 21:24 WBC 6.7 D (4.8-10.8) K/uL RBC 2.55 L (3.80-5.20) Mil/uL Hgb 8.0 L (12.0-16.0) g/dL Hct 24.7 L (34.0-47.0) % MCV 96.7 (81.0-99.0) fl MCH 31.3 H (27.0-31.0) pg MCHC 32.4 L (33.0-37.0) g/dL RDW 15.4 H (11.5-14.5) % Plt Count 160 (130-400) K/uL MPV (7.2-11.7) fl Neut % (Auto) (50.0-75.0) % Lymph % (Auto) (20.0-40.0) % Sampson % (Auto) (0.0-10.0) % Eos % (Auto) (0.0-4.0) % Baso % (Auto) (0.0-2.0) % Neut # (Auto) (1.8-7.0) K/uL Lymph # (Auto) (1.0-4.3) K/uL Sampson # (Auto) (0.0-0.8) K/uL Eos # (Auto) (0.0-0.7) K/uL Baso # (Auto) (0.0-0.2) K/uL Neutrophils % (Manual) (42-75) % Lymphocytes % (Manual) (20-50) % Monocytes % (Manual) (0-10) % Platelet Estimate (NORMAL) Large Platelets Anisocytosis (manual) Microcytosis (manual) Tear Drop Cells Ovalocytes PT (9.8-13.1) Seconds INR (0.9-1.2) APTT (25.6-37.1) Seconds pO2 (30-55) mm/Hg VBG pH (7.32-7.43) VBG pCO2 (40-60) mmHg VBG HCO3 mmol/L VBG Total CO2 (22-28) mmol/L VBG O2 Sat (Calc) (40-65) % VBG Base Excess (0.0-2.0) mmol/L VBG Potassium (3.6-5.2) mmol/L Sodium 135 (132-148) mmol/L Chloride 92 L (98-107) mmol/L Glucose (65-105) mg/dL Lactate (0.7-2.1) mmol/L FiO2 % Potassium 4.4 (3.6-5.0) MMOL/L Carbon Dioxide 25 (22-30) mmol/L Anion Gap 22 H (10-20) BUN 43 H (7-17) mg/dl Creatinine 4.0 H (0.7-1.2) mg/dl Est GFR ( Amer) 13 Est GFR (Non-Af Amer) 11 POC Glucose (mg/dL) 79 (65-110) mg/dL Random Glucose 67 (65-105) mg/dL Calcium 7.4 L (8.4-10.2) mg/dL Total Bilirubin (0.2-1.3) mg/dl AST (14-36) U/L ALT (9-52) U/L Alkaline Phosphatase (38-126) U/L Total Protein (6.3-8.2) G/DL Albumin (3.5-5.0) g/dL Globulin (2.2-3.9) gm/dL Albumin/Globulin Ratio (1.0-2.1) Lipase (23-300) U/L Alpha Fetoprotein (0.0-7.22) IU/mL Venous Blood Potassium (3.6-5.2) mmol/L 01/15/18 01/15/18 01/15/18 Range/Units 16:54 16:54 16:54 WBC 3.9 L (4.8-10.8) K/uL RBC 2.89 L (3.80-5.20) Mil/uL Hgb 9.0 L (12.0-16.0) g/dL Hct 27.4 L (34.0-47.0) % MCV 94.9 (81.0-99.0) fl MCH 31.2 H (27.0-31.0) pg MCHC 32.9 L (33.0-37.0) g/dL RDW 14.9 H (11.5-14.5) % Plt Count 150 (130-400) K/uL MPV 9.2 (7.2-11.7) fl Neut % (Auto) 81.7 H (50.0-75.0) % Lymph % (Auto) 3.7 L (20.0-40.0) % Sampson % (Auto) 14.2 H (0.0-10.0) % Eos % (Auto) 0.4 (0.0-4.0) % Baso % (Auto) 0.0 (0.0-2.0) % Neut # (Auto) 3.2 (1.8-7.0) K/uL Lymph # (Auto) 0.1 L (1.0-4.3) K/uL Sampson # (Auto) 0.6 (0.0-0.8) K/uL Eos # (Auto) 0.0 (0.0-0.7) K/uL Baso # (Auto) 0.0 (0.0-0.2) K/uL Neutrophils % (Manual) 86 H (42-75) % Lymphocytes % (Manual) 4 L (20-50) % Monocytes % (Manual) 10 (0-10) % Platelet Estimate Normal (NORMAL) Large Platelets Present Anisocytosis (manual) Slight Microcytosis (manual) Slight Tear Drop Cells Slight Ovalocytes Slight PT 20.9 H (9.8-13.1) Seconds INR 1.9 H (0.9-1.2) APTT 35.3 (25.6-37.1) Seconds pO2 (30-55) mm/Hg VBG pH (7.32-7.43) VBG pCO2 (40-60) mmHg VBG HCO3 mmol/L VBG Total CO2 (22-28) mmol/L VBG O2 Sat (Calc) (40-65) % VBG Base Excess (0.0-2.0) mmol/L VBG Potassium (3.6-5.2) mmol/L Sodium 134 (132-148) mmol/L Chloride 93 L (98-107) mmol/L Glucose (65-105) mg/dL Lactate (0.7-2.1) mmol/L FiO2 % Potassium 3.0 L (3.6-5.0) MMOL/L Carbon Dioxide 27 (22-30) mmol/L Anion Gap 17 (10-20) BUN 21 H (7-17) mg/dl Creatinine 2.0 H (0.7-1.2) mg/dl Est GFR ( Amer) 29 Est GFR (Non-Af Amer) 24 POC Glucose (mg/dL) (65-110) mg/dL Random Glucose 86 (65-105) mg/dL Calcium 7.8 L (8.4-10.2) mg/dL Total Bilirubin 1.5 H (0.2-1.3) mg/dl AST 25 (14-36) U/L ALT 31 (9-52) U/L Alkaline Phosphatase 103 (38-126) U/L Total Protein 5.3 L (6.3-8.2) G/DL Albumin 2.8 L (3.5-5.0) g/dL Globulin 2.5 (2.2-3.9) gm/dL Albumin/Globulin Ratio 1.1 (1.0-2.1) Lipase 62 (23-300) U/L Alpha Fetoprotein (0.0-7.22) IU/mL Venous Blood Potassium (3.6-5.2) mmol/L 01/15/18 01/15/18 01/15/18 Range/Units 16:54 16:40 16:14 WBC (4.8-10.8) K/uL RBC (3.80-5.20) Mil/uL Hgb (12.0-16.0) g/dL Hct (34.0-47.0) % MCV (81.0-99.0) fl MCH (27.0-31.0) pg MCHC (33.0-37.0) g/dL RDW (11.5-14.5) % Plt Count (130-400) K/uL MPV (7.2-11.7) fl Neut % (Auto) (50.0-75.0) % Lymph % (Auto) (20.0-40.0) % Sampson % (Auto) (0.0-10.0) % Eos % (Auto) (0.0-4.0) % Baso % (Auto) (0.0-2.0) % Neut # (Auto) (1.8-7.0) K/uL Lymph # (Auto) (1.0-4.3) K/uL Sampson # (Auto) (0.0-0.8) K/uL Eos # (Auto) (0.0-0.7) K/uL Baso # (Auto) (0.0-0.2) K/uL Neutrophils % (Manual) (42-75) % Lymphocytes % (Manual) (20-50) % Monocytes % (Manual) (0-10) % Platelet Estimate (NORMAL) Large Platelets Anisocytosis (manual) Microcytosis (manual) Tear Drop Cells Ovalocytes PT (9.8-13.1) Seconds INR (0.9-1.2) APTT (25.6-37.1) Seconds pO2 32 (30-55) mm/Hg VBG pH 7.40 (7.32-7.43) VBG pCO2 47 (40-60) mmHg VBG HCO3 26.7 mmol/L VBG Total CO2 30.5 H (22-28) mmol/L VBG O2 Sat (Calc) 68.6 H (40-65) % VBG Base Excess 3.5 H (0.0-2.0) mmol/L VBG Potassium 3.2 L (3.6-5.2) mmol/L Sodium 130.0 L (132-148) mmol/L Chloride 95.0 L (98-107) mmol/L Glucose 87 (65-105) mg/dL Lactate 0.8 (0.7-2.1) mmol/L FiO2 24.0 % Potassium (3.6-5.0) MMOL/L Carbon Dioxide (22-30) mmol/L Anion Gap (10-20) BUN (7-17) mg/dl Creatinine (0.7-1.2) mg/dl Est GFR ( Amer) Est GFR (Non-Af Amer) POC Glucose (mg/dL) 80 (65-110) mg/dL Random Glucose (65-105) mg/dL Calcium (8.4-10.2) mg/dL Total Bilirubin (0.2-1.3) mg/dl AST (14-36) U/L ALT (9-52) U/L Alkaline Phosphatase (38-126) U/L Total Protein (6.3-8.2) G/DL Albumin (3.5-5.0) g/dL Globulin (2.2-3.9) gm/dL Albumin/Globulin Ratio (1.0-2.1) Lipase (23-300) U/L Alpha Fetoprotein 1.2 (0.0-7.22) IU/mL Venous Blood Potassium 3.2 L (3.6-5.2) mmol/L Laboratory Results - last 24 hr 01/15/18 01/15/18 01/15/18 16:14 16:40 16:54 WBC RBC Hgb Hct MCV MCH MCHC RDW Plt Count MPV Neut % (Auto) Lymph % (Auto) Sampson % (Auto) Eos % (Auto) Baso % (Auto) Neut # (Auto) Lymph # (Auto) Sampson # (Auto) Eos # (Auto) Baso # (Auto) Neutrophils % (Manual) Lymphocytes % (Manual) Monocytes % (Manual) Platelet Estimate Large Platelets Anisocytosis (manual) Microcytosis (manual) Tear Drop Cells Ovalocytes PT INR APTT pO2 32 VBG pH 7.40 VBG pCO2 47 VBG HCO3 26.7 VBG Total CO2 30.5 H VBG O2 Sat (Calc) 68.6 H VBG Base Excess 3.5 H VBG Potassium 3.2 L Sodium 130.0 L Chloride 95.0 L Glucose 87 Lactate 0.8 FiO2 24.0 Potassium Carbon Dioxide Anion Gap BUN Creatinine Est GFR ( Amer) Est GFR (Non-Af Amer) POC Glucose (mg/dL) 80 Random Glucose Calcium Total Bilirubin AST ALT Alkaline Phosphatase Total Protein Albumin Globulin Albumin/Globulin Ratio Lipase Alpha Fetoprotein 1.2 Venous Blood Potassium 3.2 L 01/15/18 01/15/18 01/15/18 16:54 16:54 16:54 WBC 3.9 L RBC 2.89 L Hgb 9.0 L Hct 27.4 L MCV 94.9 MCH 31.2 H MCHC 32.9 L RDW 14.9 H Plt Count 150 MPV 9.2 Neut % (Auto) 81.7 H Lymph % (Auto) 3.7 L Sampson % (Auto) 14.2 H Eos % (Auto) 0.4 Baso % (Auto) 0.0 Neut # (Auto) 3.2 Lymph # (Auto) 0.1 L Sampson # (Auto) 0.6 Eos # (Auto) 0.0 Baso # (Auto) 0.0 Neutrophils % (Manual) 86 H Lymphocytes % (Manual) 4 L Monocytes % (Manual) 10 Platelet Estimate Normal Large Platelets Present Anisocytosis (manual) Slight Microcytosis (manual) Slight Tear Drop Cells Slight Ovalocytes Slight PT 20.9 H INR 1.9 H APTT 35.3 pO2 VBG pH VBG pCO2 VBG HCO3 VBG Total CO2 VBG O2 Sat (Calc) VBG Base Excess VBG Potassium Sodium 134 Chloride 93 L Glucose Lactate FiO2 Potassium 3.0 L Carbon Dioxide 27 Anion Gap 17 BUN 21 H Creatinine 2.0 H Est GFR ( Amer) 29 Est GFR (Non-Af Amer) 24 POC Glucose (mg/dL) Random Glucose 86 Calcium 7.8 L Total Bilirubin 1.5 H AST 25 ALT 31 Alkaline Phosphatase 103 Total Protein 5.3 L Albumin 2.8 L Globulin 2.5 Albumin/Globulin Ratio 1.1 Lipase 62 Alpha Fetoprotein Venous Blood Potassium 01/15/18 01/16/18 01/16/18 21:24 06:00 06:00 WBC 6.7 D RBC 2.55 L Hgb 8.0 L Hct 24.7 L MCV 96.7 MCH 31.3 H MCHC 32.4 L RDW 15.4 H Plt Count 160 MPV Neut % (Auto) Lymph % (Auto) Sampson % (Auto) Eos % (Auto) Baso % (Auto) Neut # (Auto) Lymph # (Auto) Sampson # (Auto) Eos # (Auto) Baso # (Auto) Neutrophils % (Manual) Lymphocytes % (Manual) Monocytes % (Manual) Platelet Estimate Large Platelets Anisocytosis (manual) Microcytosis (manual) Tear Drop Cells Ovalocytes PT INR APTT pO2 VBG pH VBG pCO2 VBG HCO3 VBG Total CO2 VBG O2 Sat (Calc) VBG Base Excess VBG Potassium Sodium 135 Chloride 92 L Glucose Lactate FiO2 Potassium 4.4 Carbon Dioxide 25 Anion Gap 22 H BUN 43 H Creatinine 4.0 H Est GFR ( Amer) 13 Est GFR (Non-Af Amer) 11 POC Glucose (mg/dL) 79 Random Glucose 67 Calcium 7.4 L Total Bilirubin AST ALT Alkaline Phosphatase Total Protein Albumin Globulin Albumin/Globulin Ratio Lipase Alpha Fetoprotein Venous Blood Potassium Review of Systems - Review of Systems All systems: reviewed and no additional remarkable complaints except (distention ) Critical Care Progress Note - Nutrition Nutrition: Nutrition Category Date Time Status Renal Diet [DIET] Diets 01/09/18 Dinner Active Assessment/Plan (1) Ascites Assessment and plan: 77yo F. PMHx ESRD on HD (MWF), cystic liver dz, Afib, HTN. p/w ascites, hyperkalemia and hypotension. Neuro: alert and oriented x 3 Pulm: no acute issues, breathing spontaneously on room air CV: still mildly hypotensive but asymptomatic, continue midodrine. afib rate controlled with lopressor. Hem: chronic thrombocytopenia on prednisone. anemia of chronic disease on procrit. Renal: ESRD on HD, on regular schedule. coninue cinacalcet and renagel for renagel for secondary hyperparathyroidism. Endo: no acute issues GI: ascites, worsening, awaiting paracentesis - Eliquis held. Lactulose for HE prophylaxis. ID: no acute issues DVT proph - Eliquis (held for procedure) GI proph - pepcid hollins for strict I/O's during acute illness Code status - full code Critical Care Time spent 35 minutes Multi-disciplinary rounds were performed with house staff, nursing, speech therapy, respiratory therapy, pharmacy and nutrition with integrated input from the primary team/attending and other consulting services. The documented time is cumulative and includes review of patient data/exams/labs/chart review and examination of the patient on rounds and throughout the day; time is exclusive of any procedures or teaching time. Current Visit: Yes Status: Acute
[2018-01-17] MEDS: Vancomycin 500 mg (Oral/Rectal USE) PO SCH ×3 (00:23→16:58)
[2018-01-17] MEDS ORDERED: Sodium Chloride 0.9% 500 ML IV ONE (04:19)
[2018-01-17 06:01] LABS: MEAN CELL VOLUME 96.4 fl (81.0-99.0); MEAN CORPUSCULAR HEMOGLOBIN 31.5 pg (27.0-31.0); MEAN CORPUSCULAR HGB CONC 32.7 g/dL (33.0-37.0); RBC 1.98 Mil/uL (3.80-5.20); RED CELL DISTRIBUTION WIDTH 15.1 % (11.5-14.5); WHITE BLOOD COUNT 8.3 K/uL (4.8-10.8)
[2018-01-17 06:23] LABS: HEMOGLOBIN 6.2 g/dL (12.0-16.0)
[2018-01-17 06:24] LABS: INR 3.8 (0.9-1.2)
[2018-01-17 06:26] LABS: PROTHROMBIN TIME 43.4 Seconds (9.8-13.1)
[2018-01-17 06:27] LABS: ALB/GLOB RATIO 1.3 (1.0-2.1); ALBUMIN 2.7 g/dL (3.5-5.0); CALCIUM 6.8 mg/dL (8.4-10.2)
[2018-01-17] MEDS ORDERED: Albumin Human 25% (12.5 gm/50 ml) IV ONE (07:08)
--- NOTE | 2018-01-17 07:29 | CP.PCM.PN ---
Subjective - Date & Time of Evaluation Date of Evaluation: 01/17/18 Time of Evaluation: 09:00 - Subjective Subjective: Patient seen and examined bedside.Chronically ill female lying in bed in mild discomfort . Complains of abdominal distention and difficulty with breathing. With episodes of coffee ground emesis during HD. BP on the lower side 87/48 HR 69 afebrile Hgb dropped to 6.4 today and INR 3.8 Underwent 2 unit PRBC transfusion and 2 FFP transfusion with HD Objective - Vital Signs/Intake and Output Vital Signs (last 24 hours): Temp Pulse Resp BP Pulse Ox 98.5 F 69 19 87/48 L 100 01/17/18 04:00 01/17/18 06:00 01/17/18 06:00 01/17/18 06:00 01/17/18 06:00 Intake and Output: 01/17/18 01/17/18 06:59 18:59 Intake Total 150 Output Total 50 Balance 100 - Medications Medications: Current Medications Acetaminophen (Tylenol 325mg Tab) 650 mg PO Q6 PRN PRN Reason: moderate pain level 4-7 Last Admin: 01/09/18 18:18 Dose: 650 mg Albumin Human (Albumin Human 25% (12.5 Gm/50 Ml)) 50 gm IV ONCE ONE Stop: 01/17/18 07:09 Cinacalcet (Sensipar) 30 mg PO DAILY [facility] Last Admin: 01/16/18 08:25 Dose: 30 mg Digoxin (Lanoxin) 0.25 mg PO MWF [facility] Last Admin: 01/15/18 17:22 Dose: 0.25 mg Docusate Sodium (Colace) 100 mg PO BID [facility] Last Admin: 01/16/18 16:45 Dose: 100 mg Home Med (Patient's Own Medication) 1 unit PO DAILY [facility] Lactulose (Enulose) 20 gm PO BID PRN PRN Reason: Constipation Last Admin: 01/13/18 13:19 Dose: 20 gm Metoprolol Tartrate (Lopressor) 25 mg PO DAILY [facility] Last Admin: 01/10/18 09:12 Dose: Not Given Midodrine (Proamatine) 10 mg PO Q8 [facility] Last Admin: 01/17/18 00:22 Dose: 10 mg Multivitamins/Minerals (Therapeutic-M Tab) 1 tab PO DAILY [facility] Last Admin: 01/16/18 08:24 Dose: 1 tab Ondansetron HCl (Zofran Inj) 4 mg IVP Q6 PRN PRN Reason: Nausea/Vomiting Ondansetron HCl (Zofran Odt) 4 mg PO DAILY [facility] Last Admin: 01/16/18 08:24 Dose: 4 mg Ondansetron HCl (Zofran Odt) 4 mg PO Q8H PRN PRN Reason: Nausea/Vomiting Last Admin: 01/13/18 10:38 Dose: 4 mg Pantoprazole Sodium (Protonix Ec Tab) 40 mg PO DAILY [facility] Last Admin: 01/15/18 09:31 Dose: 40 mg Prednisone (Prednisone Tab) 2.5 mg PO MOFR [facility] Last Admin: 01/15/18 17:12 Dose: 2.5 mg Prochlorperazine (Compazine) 10 mg IVP Q8 PRN PRN Reason: Nausea/Vomiting Last Admin: 01/16/18 21:35 Dose: 10 mg Sevelamer HCl (Renagel) 800 mg PO TID [facility] Last Admin: 01/16/18 16:45 Dose: 800 mg Timolol Maleate (Timoptic 0.5% [facility] Sol) 1 drop OU DAILY [facility] Last Admin: 01/16/18 08:25 Dose: 1 drop Tramadol HCl (Ultram) 50 mg PO Q6 PRN PRN Reason: Pain, moderate (4-7) Last Admin: 01/16/18 16:45 Dose: 50 mg Vancomycin HCl (Vancocin (Oral/Rectal Use)) 250 mg PO Q8 [facility] PRN Reason: Protocol Last Admin: 01/17/18 00:23 Dose: 250 mg - Labs Labs: 01/17/18 04:20 01/17/18 04:20 PT 43.4 Seconds (9.8-13.1) H* 01/17/18 04:20 INR 3.8 (0.9-1.2) H D 01/17/18 04:20 APTT 35.3 Seconds (25.6-37.1) 01/15/18 16:54 - Constitutional Appears: Chronically Ill, Other (in mild distress ) - Head Exam Head Exam: ATRAUMATIC, NORMOCEPHALIC - Eye Exam Eye Exam: EOMI, PERRL Pupil Exam: NORMAL ACCOMODATION - ENT Exam ENT Exam: Mucous Membranes Dry, Normal Exam - Neck Exam Neck Exam: Full ROM, Normal Inspection - Respiratory Exam Respiratory Exam: Rales, NORMAL BREATHING PATTERN. absent: Rhonchi, Wheezes - Cardiovascular Exam Cardiovascular Exam: REGULAR RHYTHM, RRR, +S1, +S2. absent: JVD - GI/Abdominal Exam GI & Abdominal Exam: Distended. absent: Guarding, Rebound - Rectal Exam Rectal Exam: Deferred - Extremities Exam Extremities Exam: Pedal Edema (1 +). absent: Calf Tenderness - Neurological Exam Neurological Exam: Alert, Awake, CN II-XII Intact - Psychiatric Exam Psychiatric exam: Flat Affect - Skin Skin Exam: Dry, Pallor Assessment and Plan - Assessment and Plan (Free Text) Assessment: 77 y/o lady with Hx of ESRD on HD, Cirrhosis with ascites requiring at least 2x per month Paracentesis, was brought in because of abdominal pain. Patient missed her dialysis last Monday because of the pain. In the ED - patient was noted to be slightly hypotensive with BP in the 80 systolic and her Lactate was elevated at 2.4 - she was then admitted to ICU and started on Levophed. CT of the abdomen showed 1. Cirrhosis of liver, large abdominal and pelvic ascites. 2. Small loculated right pleural effusion with pleural calcifications. 3. Stable noncalcified nodules in the right lower lobe, the largest measures 8 mm. In a low risk patient follow-up in 12 month interval and in a high-risk patient follow-up in six-month interval is recommended to assess stability 4. Cholelithiasis. 5. Polycystic kidneys. Her stool work up reported positive for c.diff and she was started on Vanco Po. Received IV albumin and HD 01/15 [place] kept on hold for 48 hours for abdominal parasenthesis today. With abdominal distention due to ascites, episodes of coffee ground emesis during HD, drop of Hgb to 6.4 and INR 3.8 Poor prognosis 1. Anemia of acute blood loss secondary to upper GI bleed on chronic anemia of kidney disease hgb dropped to 6.4 today transfuse 2 unit PRBC today and repeat CBC in AM With coffee ground emesis Keep NPO Placed NGT to slow intermitent suction GI consulted Started Protonicx 40 mg iv BID Zofran for nausea' 2. Coagulopathy Most likely secondary to liver cirrhosis Transfuse 2 unit FFP , given Vitamin K repeta PT/INr in AM Abdominal parasenthesis cancelled due to coagulopathy 3. ESRD on HD with Hyperkalemia secondary to missed HD on admission Will dialyze today and transfuse during HD Nephrology following pt cont TIW HD cont Renagel 4 Abdominal pain sec to Ascites and C . diff colitis SBP ruled out last Paracentesis done by IR on 01/10 showed no SBP parasenthesis on hold due to coagulopathy Given Vitamin K and FFP Hold Eliquist Possible parasentheis in AM. repeta PT/INR 5. C. Diff colitis Stool positive for Toxin and Ag Started on Vanco PO ID on Consult With clear mucoid BM 6.Orthostatic Hypotension pt has low baseline BP and is on Midodrine at home Increased Midodrine to 10 mg TID Called her community health nurse supervisor Dr. Bui Continue Albumine IV Q 8 hours 7. Chronic A Fib rate controlled on digoxin Eliquist on hold for procedure 8. 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 DVT prophylaxis SCD Eliquis on hold
[2018-01-17 08:23] LABS: MEAN CELL VOLUME 94.8 fl (81.0-99.0); MEAN CORPUSCULAR HEMOGLOBIN 32.3 pg (27.0-31.0); MEAN CORPUSCULAR HGB CONC 34.1 g/dL (33.0-37.0); RED CELL DISTRIBUTION WIDTH 15.2 % (11.5-14.5)
[2018-01-17 08:31] LABS: HEMOGLOBIN 6.4 g/dL (12.0-16.0)
[2018-01-17] MEDS ORDERED: Phytonadione 10 mg/ml Inj (Adult) IV STA (08:31)
[2018-01-17] MEDS: Digoxin 250 mcg (0.25 mg) Tab PO SCH (08:40)
[2018-01-17 08:58] LABS: INR 3.9 (0.9-1.2)
[2018-01-17] MEDS ORDERED: Phytonadione 10 MG in Sodium Chloride 0.9% 50 ML IV ONE ×2 (10:00→22:00)
[2018-01-17] MEDS: ESOMEPRAZOLE PO SCH (10:20)
[2018-01-17] MEDS: Multivitamin With Minerals Tab PO SCH (10:21)
--- NOTE | 2018-01-17 11:18 | CP.PCM.PN ---
Objective - Vital Signs/Intake and Output Vital Signs (last 24 hours): Temp Pulse Resp BP Pulse Ox 98.5 F 80 18 116/54 L 100 01/17/18 08:00 01/17/18 08:00 01/17/18 08:00 01/17/18 08:00 01/17/18 08:00 Intake and Output: 01/17/18 01/17/18 06:59 18:59 Intake Total 150 Output Total 50 Balance 100 - Medications Medications: Current Medications Acetaminophen (Tylenol 325mg Tab) 650 mg PO Q6 PRN PRN Reason: moderate pain level 4-7 Last Admin: 01/09/18 18:18 Dose: 650 mg Cinacalcet (Sensipar) 30 mg PO DAILY [facility] Last Admin: 01/17/18 10:21 Dose: Not Given Digoxin (Lanoxin) 0.25 mg PO MWF [facility] Last Admin: 01/17/18 08:40 Dose: 0.25 mg Docusate Sodium (Colace) 100 mg PO BID [facility] Last Admin: 01/17/18 10:20 Dose: Not Given Home Med (Patient's Own Medication) 1 unit PO DAILY [facility] Last Admin: 01/17/18 10:20 Dose: Not Given Lactulose (Enulose) 20 gm PO BID PRN PRN Reason: Constipation Last Admin: 01/13/18 13:19 Dose: 20 gm Metoprolol Tartrate (Lopressor) 25 mg PO DAILY [facility] Last Admin: 01/10/18 09:12 Dose: Not Given Midodrine (Proamatine) 10 mg PO Q8 [facility] Last Admin: 01/17/18 08:41 Dose: 10 mg Multivitamins/Minerals (Therapeutic-M Tab) 1 tab PO DAILY [facility] Last Admin: 01/17/18 10:21 Dose: Not Given Ondansetron HCl (Zofran Inj) 4 mg IVP Q6 PRN PRN Reason: Nausea/Vomiting Ondansetron HCl (Zofran Odt) 4 mg PO DAILY [facility] Last Admin: 01/16/18 08:24 Dose: 4 mg Ondansetron HCl (Zofran Odt) 4 mg PO Q8H PRN PRN Reason: Nausea/Vomiting Last Admin: 01/13/18 10:38 Dose: 4 mg Pantoprazole Sodium (Protonix Ec Tab) 40 mg PO DAILY [facility] Last Admin: 01/15/18 09:31 Dose: 40 mg Prednisone (Prednisone Tab) 2.5 mg PO MOFR [facility] Last Admin: 01/15/18 17:12 Dose: 2.5 mg Prochlorperazine (Compazine) 10 mg IVP Q8 PRN PRN Reason: Nausea/Vomiting Last Admin: 01/16/18 21:35 Dose: 10 mg Sevelamer HCl (Renagel) 800 mg PO TID [facility] Last Admin: 01/17/18 10:21 Dose: 800 mg Timolol Maleate (Timoptic 0.5% Oph Soln) 1 drop OU DAILY [facility] Last Admin: 01/17/18 08:41 Dose: 1 drop Tramadol HCl (Ultram) 50 mg PO Q6 PRN PRN Reason: Pain, moderate (4-7) Last Admin: 01/16/18 16:45 Dose: 50 mg Vancomycin HCl (Vancocin (Oral/Rectal Use)) 250 mg PO Q8 [facility] PRN Reason: Protocol Last Admin: 01/17/18 10:21 Dose: Not Given - Labs Labs: 01/17/18 08:12 01/17/18 04:20 PT 44.0 Seconds (9.8-13.1) H* 01/17/18 08:12 INR 3.9 (0.9-1.2) H 01/17/18 08:12 APTT 35.3 Seconds (25.6-37.1) 01/15/18 16:54 Assessment and Plan (1) Abdominal pain Status: Acute (2) Ascites Status: Acute (3) ESRD (end stage renal disease) on dialysis Status: Acute
--- NOTE | 2018-01-17 11:24 | CP.PCM.PN ---
Subjective - Date & Time of Evaluation Date of Evaluation: 01/17/18 Time of Evaluation: 11:35 - Subjective Subjective: dialysis note Patient awake and conscious abdominal pain appeared to be improving No vomiting reported Blood pressure is low Blood noted with low hemoglobin patient initiated blood transfusion now on dialysis I did discuss her case with her daughter at the bedside and the dialysis nurse Objective - Vital Signs/Intake and Output Vital Signs (last 24 hours): Temp Pulse Resp BP Pulse Ox 98.5 F 80 18 116/54 L 100 01/17/18 08:00 01/17/18 08:00 01/17/18 08:00 01/17/18 08:00 01/17/18 08:00 Intake and Output: 01/17/18 01/17/18 06:59 18:59 Intake Total 150 Output Total 50 Balance 100 - Medications Medications: Current Medications Acetaminophen (Tylenol 325mg Tab) 650 mg PO Q6 PRN PRN Reason: moderate pain level 4-7 Last Admin: 01/09/18 18:18 Dose: 650 mg Cinacalcet (Sensipar) 30 mg PO DAILY [facility] Last Admin: 01/17/18 10:21 Dose: Not Given Digoxin (Lanoxin) 0.25 mg PO MWF [facility] Last Admin: 01/17/18 08:40 Dose: 0.25 mg Docusate Sodium (Colace) 100 mg PO BID [facility] Last Admin: 01/17/18 10:20 Dose: Not Given Home Med (Patient's Own Medication) 1 unit PO DAILY [facility] Last Admin: 01/17/18 10:20 Dose: Not Given Lactulose (Enulose) 20 gm PO BID PRN PRN Reason: Constipation Last Admin: 01/13/18 13:19 Dose: 20 gm Metoprolol Tartrate (Lopressor) 25 mg PO DAILY [facility] Last Admin: 01/10/18 09:12 Dose: Not Given Midodrine (Proamatine) 10 mg PO Q8 [facility] Last Admin: 01/17/18 08:41 Dose: 10 mg Multivitamins/Minerals (Therapeutic-M Tab) 1 tab PO DAILY [facility] Last Admin: 01/17/18 10:21 Dose: Not Given Ondansetron HCl (Zofran Inj) 4 mg IVP Q6 PRN PRN Reason: Nausea/Vomiting Ondansetron HCl (Zofran Odt) 4 mg PO DAILY [facility] Last Admin: 01/16/18 08:24 Dose: 4 mg Ondansetron HCl (Zofran Odt) 4 mg PO Q8H PRN PRN Reason: Nausea/Vomiting Last Admin: 01/13/18 10:38 Dose: 4 mg Pantoprazole Sodium (Protonix Ec Tab) 40 mg PO DAILY [facility] Last Admin: 01/15/18 09:31 Dose: 40 mg Prednisone (Prednisone Tab) 2.5 mg PO MOFR [facility] Last Admin: 01/15/18 17:12 Dose: 2.5 mg Prochlorperazine (Compazine) 10 mg IVP Q8 PRN PRN Reason: Nausea/Vomiting Last Admin: 01/16/18 21:35 Dose: 10 mg Sevelamer HCl (Renagel) 800 mg PO TID [facility] Last Admin: 01/17/18 10:21 Dose: 800 mg Timolol Maleate (Timoptic 0.5% Ophth Soln) 1 drop OU DAILY [facility] Last Admin: 01/17/18 08:41 Dose: 1 drop Tramadol HCl (Ultram) 50 mg PO Q6 PRN PRN Reason: Pain, moderate (4-7) Last Admin: 01/16/18 16:45 Dose: 50 mg Vancomycin HCl (Vancocin (Oral/Rectal Use)) 250 mg PO Q8 [facility] PRN Reason: Protocol Last Admin: 01/17/18 10:21 Dose: Not Given - Labs Labs: 01/17/18 08:12 01/17/18 04:20 PT 44.0 Seconds (9.8-13.1) H* 01/17/18 08:12 INR 3.9 (0.9-1.2) H 01/17/18 08:12 APTT 35.3 Seconds (25.6-37.1) 01/15/18 16:54 - Constitutional Appears: No Acute Distress - Eye Exam Eye Exam: Conjunctival injection - ENT Exam ENT Exam: Mucous Membranes Moist - Respiratory Exam Respiratory Exam: absent: Chest Wall Tenderness - Cardiovascular Exam Cardiovascular Exam: absent: Gallop, JVD, Rubs - GI/Abdominal Exam GI & Abdominal Exam: Soft, Normal Bowel Sounds - Extremities Exam Extremities Exam: absent: Calf Tenderness - Back Exam Back Exam: absent: CVA tenderness (L), CVA tenderness (R) - Neurological Exam Neurological Exam: Alert - Psychiatric Exam Psychiatric exam: Normal Affect - Skin Skin Exam: Pallor Assessment and Plan (1) Abdominal pain Status: Acute (2) Ascites Status: Acute (3) ESRD (end stage renal disease) on dialysis Assessment & Plan: End-stage renal disease patient receiving dialysis now. I discussed the order with the dialysis nurse. Patient is frail with low blood pressure to receive blood transfusion right now and fresh frozen plasma and 25% albumin to support the blood pressure. to ultrafiltrate about 1500 mL carefully monitoring the blood pressure patient is in intensive care unit paracentesis has been postponed for today #2 ascitis status post paracentesis previously #3 abdominal pain improving somewhat #4 chf history and volume overloaded. #5 H/O pericardial effusion, #6 hypotension #7 hypoalbuminemia patient need nutritional counseling with the dietitian. #8 history of hyperphosphatemia and secondary hyperparathyroidism #9 debility Status: Acute
--- NOTE | 2018-01-17 14:27 | CP.CCUPN ---
CCU Subjective - Physician Review Events Since Last Encounter (Free Text): 01/17/18 14:17 abdominal discomfort with ascites, patient is tired CCU Objective - Vital Signs / Intake & Output Vital Signs (Last 4 hours): Vital Signs Temp Pulse Resp BP Pulse Ox 01/17/18 12:00 97.6 F 74 18 84/34 L 100 Intake and Output (Last 8hrs): Intake & Output 01/16/18 01/17/18 01/17/18 22:59 06:59 14:59 Intake Total 500 934 Output Total 50 Balance 450 934 Intake: IV 350 Intake, Piggyback 50 300 Oral 100 Blood Product 634 Output: Emesis 50 Other: # Bowel Movements 1 - Physical Exam Head: Positive for: Atraumatic, Normocephalic Pupils: Positive for: PERRL Extroacular Muscles: Positive for: EOMI Conjunctiva: Positive for: Normal Ears: Positive for: Normal Mouth: Positive for: Moist Mucous Membranes Neck: Positive for: Normal Range of Motion Respiratory/Chest: Positive for: Clear to Auscultation Cardiovascular: Positive for: Regular Rate and Rhythm Abdomen: Positive for: Distention, Other (tense). Negative for: Tenderness Neurological: Positive for: GCS=15, CN II-XII Intact Psychiatric: Positive for: Alert, Oriented x 3 - Medications Active Medications: Active Medications Generic Name Dose Route Start Last Admin Trade Name Freq PRN Reason Stop Dose Admin Acetaminophen 650 mg 01/09/18 17:10 01/09/18 18:18 Tylenol 325mg Tab PO 650 mg Q6 PRN Administration moderate pain level 4-7 Cinacalcet 30 mg 01/09/18 09:00 01/17/18 10:21 Sensipar PO Not Given DAILY [facility] Digoxin 0.25 mg 01/10/18 09:00 01/17/18 08:40 Lanoxin PO 0.25 mg MWF [facility] Administration Docusate Sodium 100 mg 01/12/18 13:00 01/17/18 10:20 Colace PO Not Given BID [facility] Home Med 1 unit 01/17/18 09:00 01/17/18 10:20 Patient's Own Medication PO Not Given DAILY [facility] Lactulose 20 gm 01/13/18 09:32 01/13/18 13:19 Enulose PO 20 gm BID PRN Administration Constipation Metoprolol Tartrate 25 mg 01/09/18 09:00 01/10/18 09:12 Lopressor PO Not Given DAILY [facility] Midodrine 10 mg 01/10/18 09:00 01/17/18 08:41 Proamatine PO 10 mg Q8 [facility] Administration Multivitamins/Minerals 1 tab 01/09/18 09:00 01/17/18 10:21 Therapeutic-M Tab PO Not Given DAILY [facility] Ondansetron HCl 4 mg 01/09/18 06:13 Zofran Inj IVP Q6 PRN Nausea/Vomiting Ondansetron HCl 4 mg 01/10/18 09:00 01/16/18 08:24 Zofran Odt PO 4 mg DAILY [facility] Administration Ondansetron HCl 4 mg 01/11/18 17:44 01/13/18 10:38 Zofran Odt PO 4 mg Q8H PRN Administration Nausea/Vomiting Pantoprazole Sodium 40 mg 01/09/18 09:00 01/15/18 09:31 Protonix Ec Tab PO 40 mg DAILY [facility] Administration Prednisone 2.5 mg 01/12/18 17:33 01/15/18 17:12 Prednisone Tab PO 2.5 mg MOFR [facility] Administration Prochlorperazine 10 mg 01/14/18 14:36 01/16/18 21:35 Compazine IVP 10 mg Q8 PRN Administration Nausea/Vomiting Sevelamer HCl 800 mg 01/09/18 09:00 01/17/18 10:21 Renagel PO 800 mg TID [facility] Administration Timolol Maleate 1 drop 01/12/18 11:45 01/17/18 08:41 Timoptic 0.5% Ophth Soln OU 1 drop DAILY [facility] Administration Tramadol HCl 50 mg 01/16/18 04:45 01/16/18 16:45 Ultram PO 50 mg Q6 PRN Administration Pain, moderate (4-7) Vancomycin HCl 250 mg 01/15/18 17:00 01/17/18 10:21 Vancocin (Oral/Rectal Use) PO Not Given Q8 [facility] Protocol - Patient Studies Lab Studies: Microbiology Studies 01/15/18 18:00 Blood Culture - Preliminary Blood-Thru Central Line NO GROWTH AFTER 24 HOURS Lab Studies 01/17/18 01/17/18 01/17/18 Range/Units 08:12 08:12 08:12 WBC 9.0 (4.8-10.8) K/uL RBC 2.00 L (3.80-5.20) Mil/uL Hgb 6.4 L* (12.0-16.0) g/dL Hct 18.9 L (34.0-47.0) % MCV 94.8 (81.0-99.0) fl MCH 32.3 H (27.0-31.0) pg MCHC 34.1 (33.0-37.0) g/dL RDW 15.2 H (11.5-14.5) % Plt Count 157 (130-400) K/uL PT 44.0 H* (9.8-13.1) Seconds INR 3.9 H (0.9-1.2) Sodium (132-148) mmol/l Potassium (3.6-5.0) MMOL/L Chloride (98-107) mmol/L Carbon Dioxide (22-30) mmol/L Anion Gap (10-20) BUN (7-17) mg/dl Creatinine (0.7-1.2) mg/dl Est GFR ( Amer) Est GFR (Non-Af Amer) POC Glucose (mg/dL) (65-110) mg/dL Random Glucose (65-105) mg/dL Lactic Acid (0.7-2.1) MMOL/L Calcium (8.4-10.2) mg/dL Total Bilirubin (0.2-1.3) mg/dl AST (14-36) U/L ALT (9-52) U/L Alkaline Phosphatase (38-126) U/L Total Protein (6.3-8.2) G/DL Albumin (3.5-5.0) g/dL Globulin (2.2-3.9) gm/dL Albumin/Globulin Ratio (1.0-2.1) Procalcitonin (0.19-0.49) NG/ML C. difficile Tox B Gene (Not Detected) Blood Type A POSITIVE Antibody Screen Negative Crossmatch See Detail BBK History Checked Patient has bt 01/17/18 01/17/18 01/17/18 Range/Units 04:26 04:20 04:20 WBC (4.8-10.8) K/uL RBC (3.80-5.20) Mil/uL Hgb (12.0-16.0) g/dL Hct (34.0-47.0) % MCV (81.0-99.0) fl MCH (27.0-31.0) pg MCHC (33.0-37.0) g/dL RDW (11.5-14.5) % Plt Count (130-400) K/uL PT (9.8-13.1) Seconds INR (0.9-1.2) Sodium 130 L (132-148) mmol/l Potassium 4.5 (3.6-5.0) MMOL/L Chloride 90 L (98-107) mmol/L Carbon Dioxide 26 (22-30) mmol/L Anion Gap 19 (10-20) BUN 66 H (7-17) mg/dl Creatinine 4.8 H (0.7-1.2) mg/dl Est GFR ( Amer) 11 Est GFR (Non-Af Amer) 9 POC Glucose (mg/dL) 86 (65-110) mg/dL Random Glucose 83 (65-105) mg/dL Lactic Acid 0.8 (0.7-2.1) MMOL/L Calcium 6.8 L (8.4-10.2) mg/dL Total Bilirubin 1.1 (0.2-1.3) mg/dl AST 21 (14-36) U/L ALT 30 (9-52) U/L Alkaline Phosphatase 71 (38-126) U/L Total Protein 4.9 L (6.3-8.2) G/DL Albumin 2.7 L (3.5-5.0) g/dL Globulin 2.1 L (2.2-3.9) gm/dL Albumin/Globulin Ratio 1.3 (1.0-2.1) Procalcitonin (0.19-0.49) NG/ML C. difficile Tox B Gene (Not Detected) Blood Type Antibody Screen Crossmatch BBK History Checked 01/17/18 01/17/18 01/16/18 Range/Units 04:20 04:20 18:43 WBC 8.3 (4.8-10.8) K/uL RBC 1.98 L (3.80-5.20) Mil/uL Hgb 6.2 L* (12.0-16.0) g/dL Hct 19.1 L (34.0-47.0) % MCV 96.4 (81.0-99.0) fl MCH 31.5 H (27.0-31.0) pg MCHC 32.7 L (33.0-37.0) g/dL RDW 15.1 H (11.5-14.5) % Plt Count 148 (130-400) K/uL PT 43.4 H* (9.8-13.1) Seconds INR 3.8 H D (0.9-1.2) Sodium (132-148) mmol/l Potassium (3.6-5.0) MMOL/L Chloride (98-107) mmol/L Carbon Dioxide (22-30) mmol/L Anion Gap (10-20) BUN (7-17) mg/dl Creatinine (0.7-1.2) mg/dl Est GFR ( Amer) Est GFR (Non-Af Amer) POC Glucose (mg/dL) 92 (65-110) mg/dL Random Glucose (65-105) mg/dL Lactic Acid (0.7-2.1) MMOL/L Calcium (8.4-10.2) mg/dL Total Bilirubin (0.2-1.3) mg/dl AST (14-36) U/L ALT (9-52) U/L Alkaline Phosphatase (38-126) U/L Total Protein (6.3-8.2) G/DL Albumin (3.5-5.0) g/dL Globulin (2.2-3.9) gm/dL Albumin/Globulin Ratio (1.0-2.1) Procalcitonin (0.19-0.49) NG/ML C. difficile Tox B Gene (Not Detected) Blood Type Antibody Screen Crossmatch BBK History Checked 01/15/18 01/11/18 Range/Units 16:54 14:56 WBC (4.8-10.8) K/uL RBC (3.80-5.20) Mil/uL Hgb (12.0-16.0) g/dL Hct (34.0-47.0) % MCV (81.0-99.0) fl MCH (27.0-31.0) pg MCHC (33.0-37.0) g/dL RDW (11.5-14.5) % Plt Count (130-400) K/uL PT (9.8-13.1) Seconds INR (0.9-1.2) Sodium (132-148) mmol/l Potassium (3.6-5.0) MMOL/L Chloride (98-107) mmol/L Carbon Dioxide (22-30) mmol/L Anion Gap (10-20) BUN (7-17) mg/dl Creatinine (0.7-1.2) mg/dl Est GFR ( Amer) Est GFR (Non-Af Amer) POC Glucose (mg/dL) (65-110) mg/dL Random Glucose (65-105) mg/dL Lactic Acid (0.7-2.1) MMOL/L Calcium (8.4-10.2) mg/dL Total Bilirubin (0.2-1.3) mg/dl AST (14-36) U/L ALT (9-52) U/L Alkaline Phosphatase (38-126) U/L Total Protein (6.3-8.2) G/DL Albumin (3.5-5.0) g/dL Globulin (2.2-3.9) gm/dL Albumin/Globulin Ratio (1.0-2.1) Procalcitonin 17.59 H (0.19-0.49) NG/ML C. difficile Tox B Gene Detected H (Not Detected) Blood Type Antibody Screen Crossmatch BBK History Checked Laboratory Results - last 24 hr 01/11/18 01/15/18 01/16/18 14:56 16:54 18:43 WBC RBC Hgb Hct MCV MCH MCHC RDW Plt Count PT INR Sodium Potassium Chloride Carbon Dioxide Anion Gap BUN Creatinine Est GFR ( Amer) Est GFR (Non-Af Amer) POC Glucose (mg/dL) 92 Random Glucose Lactic Acid Calcium Total Bilirubin AST ALT Alkaline Phosphatase Total Protein Albumin Globulin Albumin/Globulin Ratio Procalcitonin 17.59 H C. difficile Tox B Gene Detected H Blood Type Antibody Screen Crossmatch BBK History Checked 01/17/18 01/17/18 01/17/18 04:20 04:20 04:20 WBC 8.3 RBC 1.98 L Hgb 6.2 L* Hct 19.1 L MCV 96.4 MCH 31.5 H MCHC 32.7 L RDW 15.1 H Plt Count 148 PT 43.4 H* INR 3.8 H D Sodium 130 L Potassium 4.5 Chloride 90 L Carbon Dioxide 26 Anion Gap 19 BUN 66 H Creatinine 4.8 H Est GFR ( Amer) 11 Est GFR (Non-Af Amer) 9 POC Glucose (mg/dL) Random Glucose 83 Lactic Acid Calcium 6.8 L Total Bilirubin 1.1 AST 21 ALT 30 Alkaline Phosphatase 71 Total Protein 4.9 L Albumin 2.7 L Globulin 2.1 L Albumin/Globulin Ratio 1.3 Procalcitonin C. difficile Tox B Gene Blood Type Antibody Screen Crossmatch BBK History Checked 01/17/18 01/17/18 01/17/18 04:20 04:26 08:12 WBC RBC Hgb Hct MCV MCH MCHC RDW Plt Count PT INR Sodium Potassium Chloride Carbon Dioxide Anion Gap BUN Creatinine Est GFR ( Amer) Est GFR (Non-Af Amer) POC Glucose (mg/dL) 86 Random Glucose Lactic Acid 0.8 Calcium Total Bilirubin AST ALT Alkaline Phosphatase Total Protein Albumin Globulin Albumin/Globulin Ratio Procalcitonin C. difficile Tox B Gene Blood Type A POSITIVE Antibody Screen Negative Crossmatch See Detail BBK History Checked Patient has bt 01/17/18 01/17/18 08:12 08:12 WBC 9.0 RBC 2.00 L Hgb 6.4 L* Hct 18.9 L MCV 94.8 MCH 32.3 H MCHC 34.1 RDW 15.2 H Plt Count 157 PT 44.0 H* INR 3.9 H Sodium Potassium Chloride Carbon Dioxide Anion Gap BUN Creatinine Est GFR ( Amer) Est GFR (Non-Af Amer) POC Glucose (mg/dL) Random Glucose Lactic Acid Calcium Total Bilirubin AST ALT Alkaline Phosphatase Total Protein Albumin Globulin Albumin/Globulin Ratio Procalcitonin C. difficile Tox B Gene Blood Type Antibody Screen Crossmatch BBK History Checked Review of Systems - Review of Systems All systems: reviewed and no additional remarkable complaints except - Gastrointestinal Additional comments: distention Critical Care Progress Note - Nutrition Nutrition: Nutrition Category Date Time Status Renal Diet [DIET] Diets 01/09/18 Dinner Active Assessment/Plan (1) Ascites Assessment and plan: 77yo F. PMHx ESRD on HD (MWF), cystic liver dz, Afib, HTN. p/w ascites, hyperkalemia and hypotension. Neuro: alert and oriented x 3 Pulm: no acute issues, breathing spontaneously on room air CV: still mildly hypotensive but asymptomatic, will most likely be chronically hypotensive, continue midodrine. afib rate controlled with lopressor. Hem: chronic thrombocytopenia on prednisone. anemia of chronic disease on procrit. Elevated INR, transfusing 1 unit FFP and giving Vit K. Drop in h/h transfusing 2 units PRBC. Renal: ESRD on HD, got dialyzed today. coninue cinacalcet and renagel for renagel for secondary hyperparathyroidism. Endo: no acute issues GI: ascites, awaiting paracentesis - Eliquis held, reversing INR. Hopefully perform paracentesis tomorrow. Lactulose for HE prophylaxis. ID: no acute issues DVT proph - Eliquis (held for procedure) GI proph - pepcid hollins for strict I/O's during acute illness Code status - full code Patient has a high mortality risk with liver failure and ESRD, and she appears to be getting worse with increasing need for paracentesis. Paracentesis used to be on a biweekly schedule, now becoming weekly. Discussed advanced directives with daughter, she said she will discuss with her brother; patient's is severely ill as well. Will discuss with patient via prefitter. Critical Care Time spent 35 minutes Multi-disciplinary rounds were performed with house staff, nursing, speech therapy, respiratory therapy, pharmacy and nutrition with integrated input from the primary team/attending and other consulting services. The documented time is cumulative and includes review of patient data/exams/labs/chart review and examination of the patient on rounds and throughout the day; time is exclusive of any procedures or teaching time. Current Visit: Yes Status: Acute
--- NOTE | 2018-01-17 14:54 | CP.PCM.PN ---
Subjective - Date & Time of Evaluation Date of Evaluation: 01/17/18 Time of Evaluation: 12:30 - Subjective Subjective: ID note- Pt. seen and examined today in ICu. pt. tired and is getting HD . continues to have some nausea she states . Objective - Vital Signs/Intake and Output Vital Signs (last 24 hours): Temp Pulse Resp BP Pulse Ox 97.6 F 70 19 81/39 L 100 01/17/18 12:00 01/17/18 12:00 01/17/18 12:00 01/17/18 12:00 01/17/18 12:00 Intake and Output: 01/17/18 01/17/18 06:59 18:59 Intake Total 150 934 Output Total 50 Balance 100 934 - Medications Medications: Current Medications Acetaminophen (Tylenol 325mg Tab) 650 mg PO Q6 PRN PRN Reason: moderate pain level 4-7 Last Admin: 01/09/18 18:18 Dose: 650 mg Cinacalcet (Sensipar) 30 mg PO DAILY [facility] Last Admin: 01/17/18 10:21 Dose: Not Given Digoxin (Lanoxin) 0.25 mg PO MWF [facility] Last Admin: 01/17/18 08:40 Dose: 0.25 mg Docusate Sodium (Colace) 100 mg PO BID [facility] Last Admin: 01/17/18 10:20 Dose: Not Given Home Med (Patient's Own Medication) 1 unit PO DAILY [facility] Last Admin: 01/17/18 10:20 Dose: Not Given Lactulose (Enulose) 20 gm PO BID PRN PRN Reason: Constipation Last Admin: 01/13/18 13:19 Dose: 20 gm Metoprolol Tartrate (Lopressor) 25 mg PO DAILY [facility] Last Admin: 01/10/18 09:12 Dose: Not Given Midodrine (Proamatine) 10 mg PO Q8 [facility] Last Admin: 01/17/18 08:41 Dose: 10 mg Multivitamins/Minerals (Therapeutic-M Tab) 1 tab PO DAILY [facility] Last Admin: 01/17/18 10:21 Dose: Not Given Ondansetron HCl (Zofran Inj) 4 mg IVP Q6 PRN PRN Reason: Nausea/Vomiting Ondansetron HCl (Zofran Odt) 4 mg PO DAILY [facility] Last Admin: 01/16/18 08:24 Dose: 4 mg Ondansetron HCl (Zofran Odt) 4 mg PO Q8H PRN PRN Reason: Nausea/Vomiting Last Admin: 01/13/18 10:38 Dose: 4 mg Pantoprazole Sodium (Protonix Ec Tab) 40 mg PO DAILY [facility] Last Admin: 01/15/18 09:31 Dose: 40 mg Prednisone (Prednisone Tab) 2.5 mg PO MOFR [facility] Last Admin: 01/15/18 17:12 Dose: 2.5 mg Prochlorperazine (Compazine) 10 mg IVP Q8 PRN PRN Reason: Nausea/Vomiting Last Admin: 01/16/18 21:35 Dose: 10 mg Sevelamer HCl (Renagel) 800 mg PO TID [facility] Last Admin: 01/17/18 10:21 Dose: 800 mg Timolol Maleate (Timoptic 0.5% Ophth Soln) 1 drop OU DAILY [facility] Last Admin: 01/17/18 08:41 Dose: 1 drop Tramadol HCl (Ultram) 50 mg PO Q6 PRN PRN Reason: Pain, moderate (4-7) Last Admin: 01/16/18 16:45 Dose: 50 mg Vancomycin HCl (Vancocin (Oral/Rectal Use)) 250 mg PO Q8 [facility] PRN Reason: Protocol Last Admin: 01/17/18 10:21 Dose: Not Given - Labs Labs: - Additional Findings Additional findings: - Constitutional Appears: Non-toxic, No Acute Distress - Head Exam Head Exam: ATRAUMATIC - Eye Exam Eye Exam: EOMI, PERRL - ENT Exam ENT Exam: Normal Oropharynx - Neck Exam Neck exam: Positive for: Full Rom - Respiratory Exam Respiratory Exam: Clear to Auscultation Bilateral, NORMAL BREATHING PATTERN - Cardiovascular Exam Cardiovascular Exam: RRR, +S1, +S2 - GI/Abdominal Exam Additional comments: soft, distended, + ascites minimal tenderness throughout abdomen but no guarding, no rebound + BS - Extremities Exam Additional comments: trace edema b/L LE - Neurological Exam Neurological exam: drowsy but oriented x 3 Laboratory Results - last 72 hr 01/11/18 01/15/18 01/15/18 14:56 04:15 04:15 WBC 4.4 L RBC 3.47 L Hgb 10.8 L Hct 33.4 L MCV 96.1 MCH 31.0 MCHC 32.3 L RDW 15.1 H Plt Count 183 MPV 9.0 Neut % (Auto) 71.8 Lymph % (Auto) 6.4 L [place] % (Auto) 21.0 H Eos % (Auto) 0.6 Baso % (Auto) 0.2 Neut # (Auto) 3.2 Lymph # (Auto) 0.3 L Daggett # (Auto) 0.9 H Eos # (Auto) 0.0 Baso # (Auto) 0.0 Neutrophils % (Manual) Lymphocytes % (Manual) Monocytes % (Manual) Platelet Estimate Large Platelets Anisocytosis (manual) Microcytosis (manual) Tear Drop Cells Ovalocytes PT INR APTT pO2 VBG pH VBG pCO2 VBG HCO3 VBG Total CO2 VBG O2 Sat (Calc) VBG Base Excess VBG Potassium Glucose Lactate FiO2 Sodium 127 L Potassium 4.3 Chloride 88 L Carbon Dioxide 25 Anion Gap 18 BUN 51 H Creatinine 4.8 H Est GFR ( Amer) 11 Est GFR (Non-Af Amer) 9 POC Glucose (mg/dL) Random Glucose 116 H Lactic Acid Calcium 7.5 L Phosphorus 4.6 H Total Bilirubin AST ALT Alkaline Phosphatase Total Protein Albumin Globulin Albumin/Globulin Ratio Lipase Alpha Fetoprotein Procalcitonin Venous Blood Potassium C. difficile Tox B Gene Detected H Blood Type Antibody Screen Crossmatch BBK History Checked 01/15/18 01/15/18 01/15/18 06:23 11:29 16:14 WBC RBC Hgb Hct MCV MCH MCHC RDW Plt Count MPV Neut % (Auto) Lymph % (Auto) Daggett % (Auto) Eos % (Auto) Baso % (Auto) Neut # (Auto) Lymph # (Auto) Daggett # (Auto) Eos # (Auto) Baso # (Auto) Neutrophils % (Manual) Lymphocytes % (Manual) Monocytes % (Manual) Platelet Estimate Large Platelets Anisocytosis (manual) Microcytosis (manual) Tear Drop Cells Ovalocytes PT INR APTT pO2 32 VBG pH 7.40 VBG pCO2 47 VBG HCO3 26.7 VBG Total CO2 30.5 H VBG O2 Sat (Calc) 68.6 H VBG Base Excess 3.5 H VBG Potassium 3.2 L Glucose 87 Lactate 0.8 FiO2 24.0 Sodium 130.0 L Potassium Chloride 95.0 L Carbon Dioxide Anion Gap BUN Creatinine Est GFR ( Amer) Est GFR (Non-Af Amer) POC Glucose (mg/dL) 96 79 Random Glucose Lactic Acid Calcium Phosphorus Total Bilirubin AST ALT Alkaline Phosphatase Total Protein Albumin Globulin Albumin/Globulin Ratio Lipase Alpha Fetoprotein Procalcitonin Venous Blood Potassium 3.2 L C. difficile Tox B Gene Blood Type Antibody Screen Crossmatch BBK History Checked 01/15/18 01/15/18 01/15/18 16:40 16:54 16:54 WBC RBC Hgb Hct MCV MCH MCHC RDW Plt Count MPV Neut % (Auto) Lymph % (Auto) Daggett % (Auto) Eos % (Auto) Baso % (Auto) Neut # (Auto) Lymph # (Auto) Daggett # (Auto) Eos # (Auto) Baso # (Auto) Neutrophils % (Manual) Lymphocytes % (Manual) Monocytes % (Manual) Platelet Estimate Large Platelets Anisocytosis (manual) Microcytosis (manual) Tear Drop Cells Ovalocytes PT 20.9 H INR 1.9 H APTT 35.3 pO2 VBG pH VBG pCO2 VBG HCO3 VBG Total CO2 VBG O2 Sat (Calc) VBG Base Excess VBG Potassium Glucose Lactate FiO2 Sodium Potassium Chloride Carbon Dioxide Anion Gap BUN Creatinine Est GFR ( Amer) Est GFR (Non-Af Amer) POC Glucose (mg/dL) 80 Random Glucose Lactic Acid Calcium Phosphorus Total Bilirubin AST ALT Alkaline Phosphatase Total Protein Albumin Globulin Albumin/Globulin Ratio Lipase Alpha Fetoprotein 1.2 Procalcitonin Venous Blood Potassium C. difficile Tox B Gene Blood Type Antibody Screen Crossmatch BBK History Checked 01/15/18 01/15/18 01/15/18 16:54 16:54 16:54 WBC 3.9 L RBC 2.89 L Hgb 9.0 L Hct 27.4 L MCV 94.9 MCH 31.2 H MCHC 32.9 L RDW 14.9 H Plt Count 150 MPV 9.2 Neut % (Auto) 81.7 H Lymph % (Auto) 3.7 L Daggett % (Auto) 14.2 H Eos % (Auto) 0.4 Baso % (Auto) 0.0 Neut # (Auto) 3.2 Lymph # (Auto) 0.1 L Daggett # (Auto) 0.6 Eos # (Auto) 0.0 Baso # (Auto) 0.0 Neutrophils % (Manual) 86 H Lymphocytes % (Manual) 4 L Monocytes % (Manual) 10 Platelet Estimate Normal Large Platelets Present Anisocytosis (manual) Slight Microcytosis (manual) Slight Tear Drop Cells Slight Ovalocytes Slight PT INR APTT pO2 VBG pH VBG pCO2 VBG HCO3 VBG Total CO2 VBG O2 Sat (Calc) VBG Base Excess VBG Potassium Glucose Lactate FiO2 Sodium 134 Potassium 3.0 L Chloride 93 L Carbon Dioxide 27 Anion Gap 17 BUN 21 H Creatinine 2.0 H Est GFR ( Amer) 29 Est GFR (Non-Af Amer) 24 POC Glucose (mg/dL) Random Glucose 86 Lactic Acid Calcium 7.8 L Phosphorus Total Bilirubin 1.5 H AST 25 ALT 31 Alkaline Phosphatase 103 Total Protein 5.3 L Albumin 2.8 L Globulin 2.5 Albumin/Globulin Ratio 1.1 Lipase 62 Alpha Fetoprotein Procalcitonin 17.59 H Venous Blood Potassium C. difficile Tox B Gene Blood Type Antibody Screen Crossmatch BBK History Checked 01/15/18 01/16/18 01/16/18 21:24 06:00 06:00 WBC 6.7 D RBC 2.55 L Hgb 8.0 L Hct 24.7 L MCV 96.7 MCH 31.3 H MCHC 32.4 L RDW 15.4 H Plt Count 160 MPV Neut % (Auto) Lymph % (Auto) Daggett % (Auto) Eos % (Auto) Baso % (Auto) Neut # (Auto) Lymph # (Auto) Daggett # (Auto) Eos # (Auto) Baso # (Auto) Neutrophils % (Manual) Lymphocytes % (Manual) Monocytes % (Manual) Platelet Estimate Large Platelets Anisocytosis (manual) Microcytosis (manual) Tear Drop Cells Ovalocytes PT INR APTT pO2 VBG pH VBG pCO2 VBG HCO3 VBG Total CO2 VBG O2 Sat (Calc) VBG Base Excess VBG Potassium Glucose Lactate FiO2 Sodium 135 Potassium 4.4 Chloride 92 L Carbon Dioxide 25 Anion Gap 22 H BUN 43 H Creatinine 4.0 H Est GFR ( Amer) 13 Est GFR (Non-Af Amer) 11 POC Glucose (mg/dL) 79 Random Glucose 67 Lactic Acid Calcium 7.4 L Phosphorus Total Bilirubin AST ALT Alkaline Phosphatase Total Protein Albumin Globulin Albumin/Globulin Ratio Lipase Alpha Fetoprotein Procalcitonin Venous Blood Potassium C. difficile Tox B Gene Blood Type Antibody Screen Crossmatch BBK History Checked 01/16/18 01/17/18 01/17/18 18:43 04:20 04:20 WBC 8.3 RBC 1.98 L Hgb 6.2 L* Hct 19.1 L MCV 96.4 MCH 31.5 H MCHC 32.7 L RDW 15.1 H Plt Count 148 MPV Neut % (Auto) Lymph % (Auto) Daggett % (Auto) Eos % (Auto) Baso % (Auto) Neut # (Auto) Lymph # (Auto) Daggett # (Auto) Eos # (Auto) Baso # (Auto) Neutrophils % (Manual) Lymphocytes % (Manual) Monocytes % (Manual) Platelet Estimate Large Platelets Anisocytosis (manual) Microcytosis (manual) Tear Drop Cells Ovalocytes PT 43.4 H* INR 3.8 H D APTT pO2 VBG pH VBG pCO2 VBG HCO3 VBG Total CO2 VBG O2 Sat (Calc) VBG Base Excess VBG Potassium Glucose Lactate FiO2 Sodium Potassium Chloride Carbon Dioxide Anion Gap BUN Creatinine Est GFR ( Amer) Est GFR (Non-Af Amer) POC Glucose (mg/dL) 92 Random Glucose Lactic Acid Calcium Phosphorus Total Bilirubin AST ALT Alkaline Phosphatase Total Protein Albumin Globulin Albumin/Globulin Ratio Lipase Alpha Fetoprotein Procalcitonin Venous Blood Potassium C. difficile Tox B Gene Blood Type Antibody Screen Crossmatch BBK History Checked 01/17/18 01/17/18 01/17/18 04:20 04:20 04:26 WBC RBC Hgb Hct MCV MCH MCHC RDW Plt Count MPV Neut % (Auto) Lymph % (Auto) Daggett % (Auto) Eos % (Auto) Baso % (Auto) Neut # (Auto) Lymph # (Auto) Daggett # (Auto) Eos # (Auto) Baso # (Auto) Neutrophils % (Manual) Lymphocytes % (Manual) Monocytes % (Manual) Platelet Estimate Large Platelets Anisocytosis (manual) Microcytosis (manual) Tear Drop Cells Ovalocytes PT INR APTT pO2 VBG pH VBG pCO2 VBG HCO3 VBG Total CO2 VBG O2 Sat (Calc) VBG Base Excess VBG Potassium Glucose Lactate FiO2 Sodium 130 L Potassium 4.5 Chloride 90 L Carbon Dioxide 26 Anion Gap 19 BUN 66 H Creatinine 4.8 H Est GFR ( Amer) 11 Est GFR (Non-Af Amer) 9 POC Glucose (mg/dL) 86 Random Glucose 83 Lactic Acid 0.8 Calcium 6.8 L Phosphorus Total Bilirubin 1.1 AST 21 ALT 30 Alkaline Phosphatase 71 Total Protein 4.9 L Albumin 2.7 L Globulin 2.1 L Albumin/Globulin Ratio 1.3 Lipase Alpha Fetoprotein Procalcitonin Venous Blood Potassium C. difficile Tox B Gene Blood Type Antibody Screen Crossmatch BBK History Checked 01/17/18 01/17/18 01/17/18 08:12 08:12 08:12 WBC 9.0 RBC 2.00 L Hgb 6.4 L* Hct 18.9 L MCV 94.8 MCH 32.3 H MCHC 34.1 RDW 15.2 H Plt Count 157 MPV Neut % (Auto) Lymph % (Auto) Daggett % (Auto) Eos % (Auto) Baso % (Auto) Neut # (Auto) Lymph # (Auto) Daggett # (Auto) Eos # (Auto) Baso # (Auto) Neutrophils % (Manual) Lymphocytes % (Manual) Monocytes % (Manual) Platelet Estimate Large Platelets Anisocytosis (manual) Microcytosis (manual) Tear Drop Cells Ovalocytes PT 44.0 H* INR 3.9 H APTT pO2 VBG pH VBG pCO2 VBG HCO3 VBG Total CO2 VBG O2 Sat (Calc) VBG Base Excess VBG Potassium Glucose Lactate FiO2 Sodium Potassium Chloride Carbon Dioxide Anion Gap BUN Creatinine Est GFR ( Amer) Est GFR (Non-Af Amer) POC Glucose (mg/dL) Random Glucose Lactic Acid Calcium Phosphorus Total Bilirubin AST ALT Alkaline Phosphatase Total Protein Albumin Globulin Albumin/Globulin Ratio Lipase Alpha Fetoprotein Procalcitonin Venous Blood Potassium C. difficile Tox B Gene Blood Type A POSITIVE Antibody Screen Negative Crossmatch See Detail BBK History Checked Patient has bt Microbiology 01/15/18 18:00 Blood-Thru Central Line Blood Culture - Preliminary NO GROWTH AFTER 24 HOURS 01/10/18 14:12 Ascitic Fluid Gram Stain - Final 01/10/18 14:12 Ascitic Fluid Body Fluid Culture - Final No growth. 01/09/18 03:15 Blood-Venous Blood Culture - Final NO GROWTH AFTER 5 DAYS 01/09/18 03:15 Blood-Venous Gram Stain - Final TEST NOT PERFORMED 01/09/18 03:33 Blood-Venous Blood Culture - Final NO GROWTH AFTER 5 DAYS 01/09/18 03:33 Blood-Venous Gram Stain - Final TEST NOT PERFORMED 01/09/18 18:36 Naris MRSA Culture (Admit) - Final MRSA NOT DETECTED Assessment and Plan (1) Ascites Status: Acute (2) ESRD (end stage renal disease) on dialysis Status: Acute (3) Abdominal pain Status: Acute (4) C. 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 afebrile normal wbc count ascitic fluid cell count not c/w sbp. cxr no infiltrates , right lung Pleural effusion reported on CT . blood cx- neg x 2 ascites fluid gram stain - Cx negative stool c.diff - positive for both AG and toxin reported today from 01/11/2018 plan- continue with oral vanco for + stool c.diff AG and toxin. ascites management as per GI and ICU team. HD as per renal. check another stool c.diff ICU time 45 minutes. .
[2018-01-17] MEDS ORDERED: Chlorhexidine Gluconate 1 APPL/PKT TP ONE (15:42)
[2018-01-17 19:15] LABS: INR 2.4 (0.9-1.2); PROTHROMBIN TIME 26.8 Seconds (9.8-13.1)
--- NOTE | 2018-01-17 20:58 | CP.PCM.CON ---
History of Present Illness - History of Present Illness History of Present Illness: 77 yo female with h/o ESRD,cardiac disease , chronic low blood pressure and ascites requiring twice monthly taps referred to me for drop in Hgb and coffee grounds emesis/NG aspirate. Patient has no h/o viral hepatitis. Her INR upon admission normal but has been high for the past couple of days. She has received 2 units of PRBC and FFP. Review of Systems - Constitutional Constitutional: absent: Chills - EENT Eyes: absent: Blind Spots Ears: absent: Decreased Hearing Nose/Mouth/Throat: absent: Epistaxis - Cardiovascular Cardiovascular: absent: Chest Pain - Respiratory Respiratory: absent: Dyspnea - Gastrointestinal Gastrointestinal: As Per HPI - Genitourinary Genitourinary: As Per HPI - Musculoskeletal Musculoskeletal: absent: Muscle Weakness Past Patient History - Infectious Disease Hx of Infectious Diseases: None - Tetanus Immunizations Tetanus Immunization: Unknown - Past Medical History & Family History Past Medical History?: Yes - Past Social History Alcohol: None Drugs: Denies Home Situation {Lives}: With Family - CARDIAC Hx Hypertension: Yes - PULMONARY Hx Pneumonia: Yes - NEUROLOGICAL Hx Neurological Disorder: No - HEENT Hx Glaucoma: Yes - RENAL Hx Chronic Kidney Disease: Yes - ENDOCRINE/METABOLIC Hx Endocrine Disorders: No - HEMATOLOGICAL/ONCOLOGICAL Hx Anemia: Yes - INTEGUMENTARY Hx Dermatological Problems: No - MUSCULOSKELETAL/RHEUMATOLOGICAL Hx Arthritis: Yes - GASTROINTESTINAL Hx Diverticulitis: Yes - GENITOURINARY/GYNECOLOGICAL Hx Genitourinary Disorders: No - PSYCHIATRIC Hx Anxiety: Yes - SURGICAL HISTORY Hx Surgeries: Yes Other/Comment: PARACENTESIS SERIES. Hip replacement - ANESTHESIA Hx Anesthesia: Yes Hx Anesthesia Reactions: Yes (HARD TO WAKE UP) Hx Malignant Hyperthermia: No Meds Allergies/Adverse Reactions: Allergies Allergy/AdvReac Type Severity Reaction Status Date / Time Penicillins Allergy RASH Verified 01/09/18 01:48 morphine AdvReac HEADACHE Verified 01/09/18 01:48 mayonnaise AdvReac VOMITING Uncoded 01/09/18 01:48 - Medications Medications: Current Medications Acetaminophen (Tylenol 325mg Tab) 650 mg PO Q6 PRN PRN Reason: moderate pain level 4-7 Last Admin: 01/09/18 18:18 Dose: 650 mg Cinacalcet (Sensipar) 30 mg PO DAILY [facility] Last Admin: 01/17/18 10:21 Dose: Not Given Digoxin (Lanoxin) 0.25 mg PO MWF [facility] Last Admin: 01/17/18 08:40 Dose: 0.25 mg Docusate Sodium (Colace) 100 mg PO BID [facility] Last Admin: 01/17/18 16:57 Dose: Not Given Home Med (Patient's Own Medication) 1 unit PO DAILY [facility] Last Admin: 01/17/18 10:20 Dose: Not Given Lactulose (Enulose) 20 gm PO BID PRN PRN Reason: Constipation Last Admin: 01/13/18 13:19 Dose: 20 gm Metoprolol Tartrate (Lopressor) 25 mg PO DAILY [facility] Last Admin: 01/10/18 09:12 Dose: Not Given Midodrine (Proamatine) 10 mg PO Q8 [facility] Last Admin: 01/17/18 16:57 Dose: Not Given Multivitamins/Minerals (Therapeutic-M Tab) 1 tab PO DAILY [facility] Last Admin: 01/17/18 10:21 Dose: Not Given Ondansetron HCl (Zofran Inj) 4 mg IVP Q6 PRN PRN Reason: Nausea/Vomiting Ondansetron HCl (Zofran Odt) 4 mg PO DAILY [facility] Last Admin: 01/17/18 16:58 Dose: Not Given Ondansetron HCl (Zofran Odt) 4 mg PO Q8H PRN PRN Reason: Nausea/Vomiting Last Admin: 01/13/18 10:38 Dose: 4 mg Pantoprazole Sodium (Protonix Inj) 40 mg IVP BID [facility] Last Admin: 01/17/18 20:15 Dose: 40 mg Prednisone (Prednisone Tab) 2.5 mg PO MOFR [facility] Last Admin: 01/15/18 17:12 Dose: 2.5 mg Prochlorperazine (Compazine) 10 mg IVP Q8 PRN PRN Reason: Nausea/Vomiting Last Admin: 01/17/18 15:28 Dose: 10 mg Sevelamer HCl (Renagel) 800 mg PO TID [facility] Last Admin: 01/17/18 18:47 Dose: Not Given Timolol Maleate (Timoptic 0.5% Ophth Soln) 1 drop OU DAILY [facility] Last Admin: 01/17/18 08:41 Dose: 1 drop Tramadol HCl (Ultram) 50 mg PO Q6 PRN PRN Reason: Pain, moderate (4-7) Last Admin: 01/16/18 16:45 Dose: 50 mg Vancomycin HCl (Vancocin (Oral/Rectal Use)) 250 mg PO Q8 [facility] PRN Reason: Protocol Last Admin: 01/17/18 16:58 Dose: Not Given Physical Exam - Constitutional Appears: No Acute Distress - Head Exam Head Exam: ATRAUMATIC - Eye Exam Eye Exam: Normal appearance Pupil Exam: PERRL - Neck Exam Neck exam: Positive for: Normal Inspection - Respiratory Exam Respiratory Exam: Clear to Auscultation Bilateral - Cardiovascular Exam Cardiovascular Exam: REGULAR RHYTHM, +S1, +S2 - GI/Abdominal Exam GI & Abdominal Exam: Distended, Normal Bowel Sounds. absent: Tenderness Results - Vital Signs Recent Vital Signs: Last Vital Signs Temp 99.3 F 01/17/18 16:00 Pulse 76 01/17/18 18:00 Resp 16 01/17/18 18:00 BP 81/39 L 01/17/18 18:00 Pulse Ox 99 01/17/18 18:00 - Labs Result Diagrams: 01/17/18 08:12 01/17/18 04:20 Labs: Laboratory Results - last 24 hr 01/17/18 01/17/18 01/17/18 04:20 04:20 04:20 WBC 8.3 RBC 1.98 L Hgb 6.2 L* Hct 19.1 L MCV 96.4 MCH 31.5 H MCHC 32.7 L RDW 15.1 H Plt Count 148 PT 43.4 H* INR 3.8 H D Sodium 130 L Potassium 4.5 Chloride 90 L Carbon Dioxide 26 Anion Gap 19 BUN 66 H Creatinine 4.8 H Est GFR ( Amer) 11 Est GFR (Non-Af Amer) 9 POC Glucose (mg/dL) Random Glucose 83 Lactic Acid Calcium 6.8 L Total Bilirubin 1.1 AST 21 ALT 30 Alkaline Phosphatase 71 Total Protein 4.9 L Albumin 2.7 L Globulin 2.1 L Albumin/Globulin Ratio 1.3 Blood Type Antibody Screen Crossmatch BBK History Checked 01/17/18 01/17/18 01/17/18 04:20 04:26 08:12 WBC RBC Hgb Hct MCV MCH MCHC RDW Plt Count PT INR Sodium Potassium Chloride Carbon Dioxide Anion Gap BUN Creatinine Est GFR ( Amer) Est GFR (Non-Af Amer) POC Glucose (mg/dL) 86 Random Glucose Lactic Acid 0.8 Calcium Total Bilirubin AST ALT Alkaline Phosphatase Total Protein Albumin Globulin Albumin/Globulin Ratio Blood Type A POSITIVE Antibody Screen Negative Crossmatch See Detail BBK History Checked Patient has bt 01/17/18 01/17/18 01/17/18 08:12 08:12 18:43 WBC 9.0 RBC 2.00 L Hgb 6.4 L* Hct 18.9 L MCV 94.8 MCH 32.3 H MCHC 34.1 RDW 15.2 H Plt Count 157 PT 44.0 H* 26.8 H D INR 3.9 H 2.4 H D Sodium Potassium Chloride Carbon Dioxide Anion Gap BUN Creatinine Est GFR ( Amer) Est GFR (Non-Af Amer) POC Glucose (mg/dL) Random Glucose Lactic Acid Calcium Total Bilirubin AST ALT Alkaline Phosphatase Total Protein Albumin Globulin Albumin/Globulin Ratio Blood Type Antibody Screen Crossmatch BBK History Checked Assessment & Plan (1) GI bleed Assessment and Plan: Patient with coffee grounds emesis and drop in Hgb. Has received FFP and PRBC. Her BP systolic is about 90 which is her baseline Patient started on protonix. Upper endoscopy is indicated to determine cause of bleed but cardiology clearance is needed first. Status: Acute (2) Ascites Assessment and Plan: Patient has been told her ascites is due to cirrhosis though she has no h/o prior liver disease or viral hepatitis. Her Bili is normal and the INR was normal when she was admitted. Patient has elevated right heart pressures and that is possibly contributing to the ascites. For therapeutic and diagnostic tap tomorrow. Status: Acute
[2018-01-17 21:21] LABS: INR 2.5 (0.9-1.2)
[2018-01-17] MEDS ORDERED: Phytonadione 10 mg/ml Inj (Adult) IVPB ONE (21:50)
[2018-01-18] MEDS: Vancomycin 500 mg (Oral/Rectal USE) PO SCH ×3 (01:07→18:38)
[2018-01-18 06:01] LABS: HEMOGLOBIN 9.1 g/dL (12.0-16.0); MEAN CELL VOLUME 95.4 fl (81.0-99.0); MEAN CORPUSCULAR HEMOGLOBIN 31.7 pg (27.0-31.0); MEAN CORPUSCULAR HGB CONC 33.2 g/dL (33.0-37.0); RBC 2.87 Mil/uL (3.80-5.20); RED CELL DISTRIBUTION WIDTH 14.8 % (11.5-14.5); WHITE BLOOD COUNT 8.7 K/uL (4.8-10.8)
[2018-01-18 06:14] LABS: ALB/GLOB RATIO 1.3 (1.0-2.1); ALBUMIN 3.1 g/dL (3.5-5.0); CALCIUM 7.4 mg/dL (8.4-10.2)
[2018-01-18 06:21] LABS: INR 2.5 (0.9-1.2); PROTHROMBIN TIME 28.1 Seconds (9.8-13.1)
[2018-01-18] MEDS ORDERED: Dextrose 50% SYRINGE Inj (50 ml) ONE (06:56)
[2018-01-18] MEDS ORDERED: Dextrose 50% SYRINGE Inj (50 ml) IVP ONE (07:01)
--- NOTE | 2018-01-18 08:12 | CP.PCM.PN ---
Subjective - Date & Time of Evaluation Date of Evaluation: 01/18/18 Time of Evaluation: 08:09 - Subjective Subjective: patient awake, Feels somewhat better Objective - Vital Signs/Intake and Output Vital Signs (last 24 hours): Temp Pulse Resp BP Pulse Ox 98 F 73 22 90/40 L 100 01/18/18 04:00 01/18/18 06:00 01/18/18 06:00 01/18/18 06:00 01/18/18 06:00 Intake and Output: 01/18/18 01/18/18 06:59 18:59 Intake Total 60 Output Total 50 Balance 10 - Medications Medications: Current Medications Acetaminophen (Tylenol 325mg Tab) 650 mg PO Q6 PRN PRN Reason: moderate pain level 4-7 Last Admin: 01/09/18 18:18 Dose: 650 mg Cinacalcet (Sensipar) 30 mg PO DAILY [facility] Last Admin: 01/17/18 10:21 Dose: Not Given Digoxin (Lanoxin) 0.25 mg PO MWF [facility] Last Admin: 01/17/18 08:40 Dose: 0.25 mg Docusate Sodium (Colace) 100 mg PO BID [facility] Last Admin: 01/17/18 16:57 Dose: Not Given Home Med (Patient's Own Medication) 1 unit PO DAILY [facility] Last Admin: 01/17/18 10:20 Dose: Not Given Lactulose (Enulose) 20 gm PO BID PRN PRN Reason: Constipation Last Admin: 01/13/18 13:19 Dose: 20 gm Metoprolol Tartrate (Lopressor) 25 mg PO DAILY [facility] Last Admin: 01/10/18 09:12 Dose: Not Given Midodrine (Proamatine) 10 mg PO Q8 [facility] Last Admin: 01/18/18 01:07 Dose: 10 mg Multivitamins/Minerals (Therapeutic-M Tab) 1 tab PO DAILY [facility] Last Admin: 01/17/18 10:21 Dose: Not Given Ondansetron HCl (Zofran Inj) 4 mg IVP Q6 PRN PRN Reason: Nausea/Vomiting Ondansetron HCl (Zofran Odt) 4 mg PO DAILY [facility] Last Admin: 01/17/18 16:58 Dose: Not Given Ondansetron HCl (Zofran Odt) 4 mg PO Q8H PRN PRN Reason: Nausea/Vomiting Last Admin: 01/13/18 10:38 Dose: 4 mg Pantoprazole Sodium (Protonix Inj) 40 mg IVP BID [facility] Last Admin: 01/17/18 20:15 Dose: 40 mg Prednisone (Prednisone Tab) 2.5 mg PO MOFR [facility] Last Admin: 01/15/18 17:12 Dose: 2.5 mg Prochlorperazine (Compazine) 10 mg IVP Q8 PRN PRN Reason: Nausea/Vomiting Last Admin: 01/17/18 23:53 Dose: 10 mg Sevelamer HCl (Renagel) 800 mg PO TID [facility] Last Admin: 01/17/18 18:47 Dose: Not Given Timolol Maleate (Timoptic 0.5% Ophth Soln) 1 drop OU DAILY [facility] Last Admin: 01/17/18 08:41 Dose: 1 drop Tramadol HCl (Ultram) 50 mg PO Q6 PRN PRN Reason: Pain, moderate (4-7) Last Admin: 01/17/18 23:45 Dose: 50 mg Vancomycin HCl (Vancocin (Oral/Rectal Use)) 250 mg PO Q8 [facility] PRN Reason: Protocol Last Admin: 01/18/18 01:07 Dose: 250 mg - Labs Labs: 01/18/18 04:30 01/18/18 04:30 PT 28.1 Seconds (9.8-13.1) H 01/18/18 04:30 INR 2.5 (0.9-1.2) H 01/18/18 04:30 APTT 35.3 Seconds (25.6-37.1) 01/15/18 16:54 - Constitutional Appears: No Acute Distress - ENT Exam ENT Exam: Mucous Membranes Moist - Neck Exam Neck Exam: absent: Lymphadenopathy - Respiratory Exam Respiratory Exam: NORMAL BREATHING PATTERN. absent: Chest Wall Tenderness - Cardiovascular Exam Cardiovascular Exam: absent: JVD, Rubs - GI/Abdominal Exam GI & Abdominal Exam: Normal Bowel Sounds - Extremities Exam Extremities Exam: absent: Calf Tenderness - Back Exam Back Exam: absent: CVA tenderness (L), CVA tenderness (R) - Neurological Exam Neurological Exam: Alert - Skin Skin Exam: absent: Cyanosis Assessment and Plan (1) Abdominal pain Status: Acute (2) Ascites Status: Acute (3) ESRD (end stage renal disease) on dialysis Assessment & Plan: Completed hemodialysis yesterday with ultrafiltration 1500 mL Blood transfusion was given coagulopathy patient was given fresh frozen plasma and multiple fresh frozen plasma to be given now before she goes for paracentesis Hemoglobin done up to 9.1 #2 ascitis status post paracentesis previously #3 abdominal pain improving somewhat #4 chf history and volume overloaded. #5 H/O pericardial effusion, #6 hypotension #7 hypoalbuminemia patient need nutritional counseling with the dietitian. #8 history of hyperphosphatemia and secondary hyperparathyroidism #9 debility Status: Acute
[2018-01-18] MEDS: ESOMEPRAZOLE PO SCH (09:22)
[2018-01-18] MEDS: Multivitamin With Minerals Tab PO SCH (09:28)
[2018-01-18] MEDS ORDERED: Sterile Water 10 ML IV ONE ×2 (09:37→18:40)
--- NOTE | 2018-01-18 10:31 | CP.PCM.PN ---
Subjective - Date & Time of Evaluation Date of Evaluation: 01/18/18 Time of Evaluation: 12:00 - Subjective Subjective: ID Note- Pt. seen and examined today in ICU. lethargic. as per her daughter at her bedside she continues to have nause and some vomiting despite medication for anti-nausea. repeat paracenthesis not done since her INR was high as per her daughter. Objective - Vital Signs/Intake and Output Vital Signs (last 24 hours): Temp Pulse Resp BP Pulse Ox 98.5 F 70 14 96/47 L 100 01/18/18 08:00 01/18/18 08:00 01/18/18 08:00 01/18/18 08:00 01/18/18 08:00 Intake and Output: 01/18/18 01/18/18 06:59 18:59 Intake Total 60 Output Total 50 Balance 10 - Medications Medications: Current Medications Acetaminophen (Tylenol 325mg Tab) 650 mg PO Q6 PRN PRN Reason: moderate pain level 4-7 Last Admin: 01/09/18 18:18 Dose: 650 mg Cinacalcet (Sensipar) 30 mg PO DAILY [facility]S [facility] Last Admin: 01/18/18 09:29 Dose: 30 mg Digoxin (Lanoxin) 0.25 mg PO MWF [facility] 234 BEDS [facility] Last Admin: 01/17/18 08:40 Dose: 0.25 mg Docusate Sodium (Colace) 100 mg PO BID [facility] 234 BEDS AT [facility] Last Admin: 01/18/18 09:21 Dose: Not Given Home Med (Patient's Own Medication) 1 unit PO DAILY [facility] 234 [facility]S [facility] Last Admin: 01/18/18 09:22 Dose: Not Given Lactulose (Enulose) 20 gm PO BID PRN PRN Reason: Constipation Last Admin: 01/13/18 13:19 Dose: 20 gm Metoprolol Tartrate (Lopressor) 25 mg PO DAILY [facility] 234 BEDS AT [facility] Last Admin: 01/10/18 09:12 Dose: Not Given Midodrine (Proamatine) 10 mg PO Q8 [facility] 234 BEDS AT [facility] Last Admin: 01/18/18 09:28 Dose: 10 mg Multivitamins/Minerals (Therapeutic-M Tab) 1 tab PO DAILY [facility] 234 BEDS AT [facility] Last Admin: 01/18/18 09:28 Dose: Not Given Ondansetron HCl (Zofran Inj) 4 mg IVP Q6 PRN PRN Reason: Nausea/Vomiting Ondansetron HCl (Zofran Odt) 4 mg PO DAILY [facility] 234 BEDS AT [facility] Last Admin: 01/18/18 09:30 Dose: 4 mg Ondansetron HCl (Zofran Odt) 4 mg PO Q8H PRN PRN Reason: Nausea/Vomiting Last Admin: 01/13/18 10:38 Dose: 4 mg Pantoprazole Sodium (Protonix Inj) 40 mg IVP BID [facility] 234 BEDS AT [facility] Last Admin: 01/18/18 09:28 Dose: 40 mg Prednisone (Prednisone Tab) 2.5 mg PO MOFR [facility] 234 BEDS AT [facility] Last Admin: 01/15/18 17:12 Dose: 2.5 mg Prochlorperazine (Compazine) 10 mg IVP Q8 PRN PRN Reason: Nausea/Vomiting Last Admin: 01/17/18 23:53 Dose: 10 mg Sevelamer HCl (Renagel) 800 mg PO TID [facility] 234 B[facility]S AT [facility] Last Admin: 01/18/18 09:22 Dose: Not Given Timolol Maleate (Timoptic 0.5% Oph Soln) 1 drop OU DAILY [facility] 234 B[facility]S AT [facility] Last Admin: 01/18/18 09:29 Dose: 1 drop Tramadol HCl (Ultram) 50 mg PO Q6 PRN PRN Reason: Pain, moderate (4-7) Last Admin: 01/17/18 23:45 Dose: 50 mg Vancomycin HCl (Vancocin (Oral/Rectal Use)) 250 mg PO Q8 [facility] 234 BEDS AT [facility] PRN Reason: Protocol Last Admin: 01/18/18 09:29 Dose: 250 mg - Labs Labs: - Additional Findings Additional findings: - Constitutional Appears: Non-toxic, No Acute Distress - Head Exam Head Exam: ATRAUMATIC - Eye Exam Eye Exam: EOMI, PERRL - ENT Exam ENT Exam: Normal Oropharynx - Neck Exam Neck exam: Positive for: Full Rom - Respiratory Exam Respiratory Exam: NORMAL BREATHING PATTERN - Cardiovascular Exam Cardiovascular Exam: RRR, +S1, +S2 - GI/Abdominal Exam Additional comments: soft, distended, + ascites minimal tenderness throughout abdomen but no guarding, no rebound + BS - Extremities Exam Additional comments: trace edema b/L LE - Neurological Exam Neurological exam: drowsy but oriented x 3 Laboratory Results - last 72 hr 01/11/18 01/15/18 01/15/18 14:56 16:54 16:54 WBC RBC Hgb Hct MCV MCH MCHC RDW Plt Count MPV Neut % (Auto) Lymph % (Auto) [place] % (Auto) Eos % (Auto) Baso % (Auto) Neut # (Auto) Lymph # (Auto) [place] # (Auto) Eos # (Auto) Baso # (Auto) Neutrophils % (Manual) Lymphocytes % (Manual) Monocytes % (Manual) Platelet Estimate Large Platelets Anisocytosis (manual) Microcytosis (manual) Tear Drop Cells Ovalocytes PT 20.9 H INR 1.9 H APTT 35.3 Sodium Potassium Chloride Carbon Dioxide Anion Gap BUN Creatinine Est GFR ( Amer) Est GFR (Non-Af Amer) POC Glucose (mg/dL) Random Glucose Lactic Acid Calcium Total Bilirubin AST ALT Alkaline Phosphatase Total Protein Albumin Globulin Albumin/Globulin Ratio Lipase Alpha Fetoprotein 1.2 Procalcitonin C. difficile Tox B Gene Detected H Blood Type Antibody Screen Crossmatch BBK History Checked 01/15/18 01/15/18 01/15/18 16:54 16:54 16:54 WBC 3.9 L RBC 2.89 L Hgb 9.0 L Hct 27.4 L MCV 94.9 MCH 31.2 H MCHC 32.9 L RDW 14.9 H Plt Count 150 MPV 9.2 Neut % (Auto) 81.7 H Lymph % (Auto) 3.7 L [place] % (Auto) 14.2 H Eos % (Auto) 0.4 Baso % (Auto) 0.0 Neut # (Auto) 3.2 Lymph # (Auto) 0.1 L [place] # (Auto) 0.6 Eos # (Auto) 0.0 Baso # (Auto) 0.0 Neutrophils % (Manual) 86 H Lymphocytes % (Manual) 4 L Monocytes % (Manual) 10 Platelet Estimate Normal Large Platelets Present Anisocytosis (manual) Slight Microcytosis (manual) Slight Tear Drop Cells Slight Ovalocytes Slight PT INR APTT Sodium 134 Potassium 3.0 L Chloride 93 L Carbon Dioxide 27 Anion Gap 17 BUN 21 H Creatinine 2.0 H Est GFR ( Amer) 29 Est GFR (Non-Af Amer) 24 POC Glucose (mg/dL) Random Glucose 86 Lactic Acid Calcium 7.8 L Total Bilirubin 1.5 H AST 25 ALT 31 Alkaline Phosphatase 103 Total Protein 5.3 L Albumin 2.8 L Globulin 2.5 Albumin/Globulin Ratio 1.1 Lipase 62 Alpha Fetoprotein Procalcitonin 17.59 H C. difficile Tox B Gene Blood Type Antibody Screen Crossmatch BBK History Checked 01/15/18 01/16/18 01/16/18 21:24 06:00 06:00 WBC 6.7 D RBC 2.55 L Hgb 8.0 L Hct 24.7 L MCV 96.7 MCH 31.3 H MCHC 32.4 L RDW 15.4 H Plt Count 160 MPV Neut % (Auto) Lymph % (Auto) [place] % (Auto) Eos % (Auto) Baso % (Auto) Neut # (Auto) Lymph # (Auto) [place] # (Auto) Eos # (Auto) Baso # (Auto) Neutrophils % (Manual) Lymphocytes % (Manual) Monocytes % (Manual) Platelet Estimate Large Platelets Anisocytosis (manual) Microcytosis (manual) Tear Drop Cells Ovalocytes PT INR APTT Sodium 135 Potassium 4.4 Chloride 92 L Carbon Dioxide 25 Anion Gap 22 H BUN 43 H Creatinine 4.0 H Est GFR ( Amer) 13 Est GFR (Non-Af Amer) 11 POC Glucose (mg/dL) 79 Random Glucose 67 Lactic Acid Calcium 7.4 L Total Bilirubin AST ALT Alkaline Phosphatase Total Protein Albumin Globulin Albumin/Globulin Ratio Lipase Alpha Fetoprotein Procalcitonin C. difficile Tox B Gene Blood Type Antibody Screen Crossmatch BBK History Checked 01/16/18 01/17/18 01/17/18 18:43 04:20 04:20 WBC 8.3 RBC 1.98 L Hgb 6.2 L* Hct 19.1 L MCV 96.4 MCH 31.5 H MCHC 32.7 L RDW 15.1 H Plt Count 148 MPV Neut % (Auto) Lymph % (Auto) [place] % (Auto) Eos % (Auto) Baso % (Auto) Neut # (Auto) Lymph # (Auto) [place] # (Auto) Eos # (Auto) Baso # (Auto) Neutrophils % (Manual) Lymphocytes % (Manual) Monocytes % (Manual) Platelet Estimate Large Platelets Anisocytosis (manual) Microcytosis (manual) Tear Drop Cells Ovalocytes PT 43.4 H* INR 3.8 H D APTT Sodium Potassium Chloride Carbon Dioxide Anion Gap BUN Creatinine Est GFR ( Amer) Est GFR (Non-Af Amer) POC Glucose (mg/dL) 92 Random Glucose Lactic Acid Calcium Total Bilirubin AST ALT Alkaline Phosphatase Total Protein Albumin Globulin Albumin/Globulin Ratio Lipase Alpha Fetoprotein Procalcitonin C. difficile Tox B Gene Blood Type Antibody Screen Crossmatch BBK History Checked 01/17/18 01/17/18 01/17/18 04:20 04:20 04:26 WBC RBC Hgb Hct MCV MCH MCHC RDW Plt Count MPV Neut % (Auto) Lymph % (Auto) [place] % (Auto) Eos % (Auto) Baso % (Auto) Neut # (Auto) Lymph # (Auto) [place] # (Auto) Eos # (Auto) Baso # (Auto) Neutrophils % (Manual) Lymphocytes % (Manual) Monocytes % (Manual) Platelet Estimate Large Platelets Anisocytosis (manual) Microcytosis (manual) Tear Drop Cells Ovalocytes PT INR APTT Sodium 130 L Potassium 4.5 Chloride 90 L Carbon Dioxide 26 Anion Gap 19 BUN 66 H Creatinine 4.8 H Est GFR ( Amer) 11 Est GFR (Non-Af Amer) 9 POC Glucose (mg/dL) 86 Random Glucose 83 Lactic Acid 0.8 Calcium 6.8 L Total Bilirubin 1.1 AST 21 ALT 30 Alkaline Phosphatase 71 Total Protein 4.9 L Albumin 2.7 L Globulin 2.1 L Albumin/Globulin Ratio 1.3 Lipase Alpha Fetoprotein Procalcitonin C. difficile Tox B Gene Blood Type Antibody Screen Crossmatch BBK History Checked 01/17/18 01/17/18 01/17/18 08:12 08:12 08:12 WBC 9.0 RBC 2.00 L Hgb 6.4 L* Hct 18.9 L MCV 94.8 MCH 32.3 H MCHC 34.1 RDW 15.2 H Plt Count 157 MPV Neut % (Auto) Lymph % (Auto) [place] % (Auto) Eos % (Auto) Baso % (Auto) Neut # (Auto) Lymph # (Auto) [place] # (Auto) Eos # (Auto) Baso # (Auto) Neutrophils % (Manual) Lymphocytes % (Manual) Monocytes % (Manual) Platelet Estimate Large Platelets Anisocytosis (manual) Microcytosis (manual) Tear Drop Cells Ovalocytes PT 44.0 H* INR 3.9 H APTT Sodium Potassium Chloride Carbon Dioxide Anion Gap BUN Creatinine Est GFR ( Amer) Est GFR (Non-Af Amer) POC Glucose (mg/dL) Random Glucose Lactic Acid Calcium Total Bilirubin AST ALT Alkaline Phosphatase Total Protein Albumin Globulin Albumin/Globulin Ratio Lipase Alpha Fetoprotein Procalcitonin C. difficile Tox B Gene Blood Type A POSITIVE Antibody Screen Negative Crossmatch See Detail BBK History Checked Patient has bt 01/17/18 01/17/18 01/18/18 18:43 20:30 04:30 WBC 8.7 RBC 2.87 L Hgb 9.1 L D Hct 27.4 L MCV 95.4 MCH 31.7 H MCHC 33.2 RDW 14.8 H Plt Count 122 L D MPV Neut % (Auto) Lymph % (Auto) [place] % (Auto) Eos % (Auto) Baso % (Auto) Neut # (Auto) Lymph # (Auto) [place] # (Auto) Eos # (Auto) Baso # (Auto) Neutrophils % (Manual) Lymphocytes % (Manual) Monocytes % (Manual) Platelet Estimate Large Platelets Anisocytosis (manual) Microcytosis (manual) Tear Drop Cells Ovalocytes PT 26.8 H D 28.0 H INR 2.4 H D 2.5 H APTT Sodium Potassium Chloride Carbon Dioxide Anion Gap BUN Creatinine Est GFR ( Amer) Est GFR (Non-Af Amer) POC Glucose (mg/dL) Random Glucose Lactic Acid Calcium Total Bilirubin AST ALT Alkaline Phosphatase Total Protein Albumin Globulin Albumin/Globulin Ratio Lipase Alpha Fetoprotein Procalcitonin C. difficile Tox B Gene Blood Type Antibody Screen Crossmatch BBK History Checked 01/18/18 01/18/18 01/18/18 04:30 04:30 06:52 WBC RBC Hgb Hct MCV MCH MCHC RDW Plt Count MPV Neut % (Auto) Lymph % (Auto) [place] % (Auto) Eos % (Auto) Baso % (Auto) Neut # (Auto) Lymph # (Auto) [place] # (Auto) Eos # (Auto) Baso # (Auto) Neutrophils % (Manual) Lymphocytes % (Manual) Monocytes % (Manual) Platelet Estimate Large Platelets Anisocytosis (manual) Microcytosis (manual) Tear Drop Cells Ovalocytes PT 28.1 H INR 2.5 H APTT Sodium 139 Potassium 3.4 L Chloride 94 L Carbon Dioxide 26 Anion Gap 22 H BUN 44 H Creatinine 3.2 H Est GFR ( Amer) 17 Est GFR (Non-Af Amer) 14 POC Glucose (mg/dL) 38 L* Random Glucose 43 L Lactic Acid Calcium 7.4 L Total Bilirubin 2.6 H AST 22 ALT 29 Alkaline Phosphatase 81 Total Protein 5.4 L Albumin 3.1 L Globulin 2.3 Albumin/Globulin Ratio 1.3 Lipase Alpha Fetoprotein Procalcitonin C. difficile Tox B Gene Blood Type Antibody Screen Crossmatch BBK History Checked 01/18/18 07:21 WBC RBC Hgb Hct MCV MCH MCHC RDW Plt Count MPV Neut % (Auto) Lymph % (Auto) [place] % (Auto) Eos % (Auto) Baso % (Auto) Neut # (Auto) Lymph # (Auto) [place] # (Auto) Eos # (Auto) Baso # (Auto) Neutrophils % (Manual) Lymphocytes % (Manual) Monocytes % (Manual) Platelet Estimate Large Platelets Anisocytosis (manual) Microcytosis (manual) Tear Drop Cells Ovalocytes PT INR APTT Sodium Potassium Chloride Carbon Dioxide Anion Gap BUN Creatinine Est GFR ( Amer) Est GFR (Non-Af Amer) POC Glucose (mg/dL) 186 H Random Glucose Lactic Acid Calcium Total Bilirubin AST ALT Alkaline Phosphatase Total Protein Albumin Globulin Albumin/Globulin Ratio Lipase Alpha Fetoprotein Procalcitonin C. difficile Tox B Gene Blood Type Antibody Screen Crossmatch BBK History Checked Microbiology 01/15/18 18:00 Blood-Thru Central Line Blood Culture - Preliminary NO GROWTH AFTER 48 HOURS 01/10/18 14:12 Ascitic Fluid Gram Stain - Final 01/10/18 14:12 Ascitic Fluid Body Fluid Culture - Final No growth. 01/09/18 03:15 Blood-Venous Blood Culture - Final NO GROWTH AFTER 5 DAYS 01/09/18 03:15 Blood-Venous Gram Stain - Final TEST NOT PERFORMED 01/09/18 03:33 Blood-Venous Blood Culture - Final NO GROWTH AFTER 5 DAYS 01/09/18 03:33 Blood-Venous Gram Stain - Final TEST NOT PERFORMED 01/09/18 18:36 Naris MRSA Culture (Admit) - Final MRSA NOT DETECTED Assessment and Plan (1) Ascites Status: Acute (2) ESRD (end stage renal disease) on dialysis Status: Acute (3) Abdominal pain Status: Acute (4) C. 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 afebrile normal wbc count ascitic fluid cell count not c/w SBP. cxr no infiltrates , right lung Pleural effusion reported on CT . blood cx- neg x 2 ascites fluid gram stain - Cx negative stool c.diff - positive for both AG and toxin reported today from 01/11/2018 plan- continue with oral vanco for + stool c.diff AG and toxin. ascites management as per GI and ICU team. HD as per renal. al above d/w patient and her daughter. ICU time 45 minutes. .
--- NOTE | 2018-01-18 14:20 | CP.PCM.PN ---
Subjective - Date & Time of Evaluation Date of Evaluation: 01/18/18 Time of Evaluation: 13:00 - Subjective Subjective: No fever abd pain sl better after NGT placed INR still prolonged , unable to do Paracentesis today no N/V denies CP no SOB Objective - Vital Signs/Intake and Output Vital Signs (last 24 hours): Temp Pulse Resp BP Pulse Ox 98.0 F 66 19 100/43 L 100 01/18/18 12:00 01/18/18 12:00 01/18/18 12:00 01/18/18 12:00 01/18/18 12:00 Intake and Output: 01/18/18 01/18/18 06:59 18:59 Intake Total 60 333 Output Total 50 Balance 10 333 - Medications Medications: Current Medications Acetaminophen (Tylenol 325mg Tab) 650 mg PO Q6 PRN PRN Reason: moderate pain level 4-7 Last Admin: 01/09/18 18:18 Dose: 650 mg Cinacalcet (Sensipar) 30 mg PO DAILY [facility] Last Admin: 01/18/18 09:29 Dose: 30 mg Digoxin (Lanoxin) 0.25 mg PO MWF [facility] Last Admin: 01/17/18 08:40 Dose: 0.25 mg Docusate Sodium (Colace) 100 mg PO BID [facility] Last Admin: 01/18/18 09:21 Dose: Not Given Home Med (Patient's Own Medication) 1 unit PO DAILY [facility] Last Admin: 01/18/18 09:22 Dose: Not Given Lactulose (Enulose) 20 gm PO BID PRN PRN Reason: Constipation Last Admin: 01/13/18 13:19 Dose: 20 gm Metoprolol Tartrate (Lopressor) 25 mg PO DAILY [facility] Last Admin: 01/10/18 09:12 Dose: Not Given Midodrine (Proamatine) 10 mg PO Q8 [facility] Last Admin: 01/18/18 09:28 Dose: 10 mg Multivitamins/Minerals (Therapeutic-M Tab) 1 tab PO DAILY [facility] Last Admin: 01/18/18 09:28 Dose: Not Given Ondansetron HCl (Zofran Inj) 4 mg IVP Q6 PRN PRN Reason: Nausea/Vomiting Ondansetron HCl (Zofran Odt) 4 mg PO DAILY [facility] Last Admin: 01/18/18 09:30 Dose: 4 mg Ondansetron HCl (Zofran Odt) 4 mg PO Q8H PRN PRN Reason: Nausea/Vomiting Last Admin: 01/13/18 10:38 Dose: 4 mg Pantoprazole Sodium (Protonix Inj) 40 mg IVP BID [facility] Last Admin: 01/18/18 09:28 Dose: 40 mg Prednisone (Prednisone Tab) 2.5 mg PO MOFR [facility] Last Admin: 01/15/18 17:12 Dose: 2.5 mg Prochlorperazine (Compazine) 10 mg IVP Q8 PRN PRN Reason: Nausea/Vomiting Last Admin: 01/18/18 12:00 Dose: 10 mg Sevelamer HCl (Renagel) 800 mg PO TID [facility] Last Admin: 01/18/18 09:22 Dose: Not Given Timolol Maleate (Timoptic 0.5% Oph Soln) 1 drop OU DAILY [facility] Last Admin: 01/18/18 09:29 Dose: 1 drop Tramadol HCl (Ultram) 50 mg PO Q6 PRN PRN Reason: Pain, moderate (4-7) Last Admin: 01/18/18 11:45 Dose: 50 mg Vancomycin HCl (Vancocin (Oral/Rectal Use)) 250 mg PO Q8 [facility] PRN Reason: Protocol Last Admin: 01/18/18 09:29 Dose: 250 mg - Labs Labs: 01/18/18 04:30 01/18/18 04:30 PT 28.1 Seconds (9.8-13.1) H 01/18/18 04:30 INR 2.5 (0.9-1.2) H 01/18/18 04:30 APTT 35.3 Seconds (25.6-37.1) 01/15/18 16:54 - Constitutional Appears: No Acute Distress, Chronically Ill - Head Exam Head Exam: NORMAL INSPECTION, NORMOCEPHALIC - Eye Exam Eye Exam: EOMI, Normal appearance Pupil Exam: NORMAL ACCOMODATION - ENT Exam ENT Exam: Mucous Membranes Moist, Normal External Ear Exam - Neck Exam Neck Exam: Full ROM. absent: Meningismus - Respiratory Exam Respiratory Exam: Rales (minimal rales bases), NORMAL BREATHING PATTERN. absent : Respiratory Distress - Cardiovascular Exam Cardiovascular Exam: Irregular Rhythm, +S1, +S2 - GI/Abdominal Exam GI & Abdominal Exam: Distended, Firm, mild Tenderness, Normal Bowel Sounds - Extremities Exam Extremities Exam: Normal Capillary Refill. absent: Calf Tenderness, Pedal Edema Additional comments: right arm AVF - Back Exam Back Exam: absent: CVA tenderness (L), CVA tenderness (R) - Neurological Exam Neurological Exam: Alert, Awake, CN II-XII Intact, Oriented x3 - Psychiatric Exam Psychiatric exam: Flat Affect - Skin Skin Exam: Dry, Normal Color, Warm Assessment and Plan - Assessment and Plan (Free Text) Assessment: 77 y/o lady with Hx of ESRD on HD, Cirrhosis with ascites requiring at least 2x per month Paracentesis, was brought in because of abdominal pain. Patient missed her dialysis because of the pain. In the ED - patient was noted to be slightly hypotensive with BP in the 80 systolic and her Lactate was elevated at 2.4 - she was then admitted to ICU and started on Levophed. CT of the abdomen showed 1. Cirrhosis of liver, large abdominal and pelvic ascites. 2. Small loculated right pleural effusion with pleural calcifications. 3. Stable noncalcified nodules in the right lower lobe, the largest measures 8 mm. In a low risk patient follow-up in 12 month interval and in a high-risk patient follow-up in six-month interval is recommended to assess stability 4. Cholelithiasis. 5. Polycystic kidneys. Her stool work up reported positive for c.diff and she was started on Vanco Po. Received IV albumin and HD. 01/15 Eliquis kept on hold for 48 hours for abdominal paracentesis. With abdominal distention due to ascites, episodes of coffee ground emesis during HD, drop of Hgb to 6.4 and INR 3.8 Poor prognosis 1. Anemia of acute blood loss secondary to upper GI bleed on chronic anemia of kidney disease hgb dropped to 6.4 , Hgb now 9.1 post transfusion of 2 units PRBC With coffee ground emesis Keep NPO Placed NGT to slow intermittent suction GI consulted Started Protonix 40 mg iv BID Zofran for nausea' 2. Coagulopathy Most likely secondary to liver cirrhosis Transfused 2 unit FFP , given Vitamin K repeat PT/INr in AM Abdominal paracentesis cancelled due to coagulopathy 3. ESRD on HD with Hyperkalemia secondary to missed HD on admission Nephrology following pt cont TIW HD cont Renagel 4 Abdominal pain sec to Ascites and C . diff colitis SBP ruled out last Paracentesis done by IR on 01/10 showed no SBP paracentesis on hold due to coagulopathy Given Vitamin K and FFP Hold Eliquis 5. C. Diff colitis Stool positive for Toxin and Ag Started on Vanco PO ID on Consult With clear mucoid BM 6.Orthostatic Hypotension pt has low baseline BP and is on Midodrine at home Increased Midodrine to 10 mg TID Called her cdl program coordinator Dr. Bui Continue Albumin IV Q 8 hours 7. Chronic A Fib rate controlled on digoxin Eliquis on hold for procedure 8. cryptogenic Cirrhosis of the liver with ascites,coagulopathy and Thrombocytopenia Steroids PO for thrombocytopenia Transfuse FFP PRN Patient follows up with GI in [place] called DR Lea 9. DVT prophylaxis SCD Eliquis on hold
--- NOTE | 2018-01-18 14:57 | CP.CCUPN ---
CCU Subjective - Physician Review Subjective (Free Text): Awake and alert, NGT placed, + coffee grounds noted. Near completion of 2 units FFP so far. Other Vitals and I/Os reviewed. ROS: No other pertinent negs or positives on system review PMSFH: All other Nursing and physician documentation reviewed to date; no new pertinent info noted relevant to current medical problems. EXAM- HEENT: no icterus, no gaze preference, pupils equal and reactive, no icterus NECK: No JVD, supple, carotids equal upstroke bilat/no bruits CHEST: decreased BS bases, no wheezes audible HEART: regular distant, S1S2, no rubs. ABD: soft, ++ distention, no tympany, no palp tenderness, BS hypoactive. EXT: trace edema bilat. No peripheral/ digital cyanosis, no calf tenderness or palpable cords, distal pulses intact and symmetrical. RUE AV shunt with good bruit and thrill. NEURO: no gross focal motor deficits. SKIN: no rashes, warm and dry. LABS: Coags: PT 28.1, INR 2.5 WBC= 8.7 HGB= 9.1 PLTs= 122K Na= 139 K= 3.4 CL= 94 HCO3= 26 BUN/Cr= 44/3.2 BS= 43 IMPRESSION / MAJOR PROBLEMS NOW: 1. +C Diff colitis 2. ESRD on CAHD, with s/p Hyperkalemia / Uremia 3. Chronic recurrent Ascites 2 Cirrhosis (?? Cryptogenic ??) 4. Chronic A fib on AC 5. Chronic Thrombocytopenia on chronic steroids. PLAN: 1. Slowly decompensating despite interventions. 2. No new findings on repeat ECHO. Consider Cardio re-eval to address Pulm HTN seen on repeat ECHO. Serial Lactates have all been normal despite low BP which is most likely at her baseline, as compared to vitals during last hospitalization in Sep 2017. 3. Hypoglycemic this AM; checked repeat glucose level- normal. 4. Elevated coags, off Eliquis since 01/15, LFTs not dramatically elevated from her cirrhosis, GI eval noted. Consider Heme eval. Platelets appear to be dropping again. 5. Checked Digoxin level on 01/12 during symptoms of nausea and level is normal. CCU Objective - Vital Signs / Intake & Output Vital Signs (Last 4 hours): Vital Signs Temp Pulse Resp BP Pulse Ox 01/18/18 12:00 98.0 F 66 19 100/43 L 100 Intake and Output (Last 8hrs): Intake & Output 01/17/18 01/18/18 01/18/18 22:59 06:59 14:59 Intake Total 0 60 333 Output Total 1850 50 Balance -1850 10 333 Intake: IV 0 10 Intake, Piggyback 50 Blood Product 333 Output: Gastric Amount 350 50 Right Nares 350 50 Stool 0 Ultrafiltrate 1500 Critical Care Progress Note - Nutrition Nutrition: Nutrition Category Date Time Status NPO Diet [DIET] Diets 01/17/18 Dinner Active
--- NOTE | 2018-01-18 23:34 | CP.PCM.PN ---
Subjective - Date & Time of Evaluation Date of Evaluation: 01/18/18 Time of Evaluation: 14:00 - Subjective Subjective: Hgb has been stable since yesterday. No further coffee grounds in today. Objective - Vital Signs/Intake and Output Vital Signs (last 24 hours): Temp Pulse Resp BP Pulse Ox 98 F 69 34 H 100/44 L 99 01/18/18 20:00 01/18/18 20:00 01/18/18 20:00 01/18/18 20:00 01/18/18 20:00 Intake and Output: 01/18/18 01/19/18 18:59 06:59 Intake Total 895 Output Total 100 50 Balance 795 -50 - Medications Medications: Current Medications Acetaminophen (Tylenol 325mg Tab) 650 mg PO Q6 PRN PRN Reason: moderate pain level 4-7 Last Admin: 01/09/18 18:18 Dose: 650 mg Cinacalcet (Sensipar) 30 mg PO DAILY [facility] Last Admin: 01/18/18 09:29 Dose: 30 mg Digoxin (Lanoxin) 0.25 mg PO MWF [facility] Last Admin: 01/17/18 08:40 Dose: 0.25 mg Docusate Sodium (Colace) 100 mg PO BID [facility] Last Admin: 01/18/18 17:14 Dose: Not Given Home Med (Patient's Own Medication) 1 unit PO DAILY [facility] Last Admin: 01/18/18 09:22 Dose: Not Given Lactulose (Enulose) 20 gm PO BID PRN PRN Reason: Constipation Last Admin: 01/13/18 13:19 Dose: 20 gm Metoprolol Tartrate (Lopressor) 25 mg PO DAILY [facility] Last Admin: 01/10/18 09:12 Dose: Not Given Midodrine (Proamatine) 10 mg PO Q8 [facility] Last Admin: 01/18/18 17:16 Dose: 10 mg Multivitamins/Minerals (Therapeutic-M Tab) 1 tab PO DAILY [facility] Last Admin: 01/18/18 09:28 Dose: Not Given Ondansetron HCl (Zofran Inj) 4 mg IVP Q6 PRN PRN Reason: Nausea/Vomiting Ondansetron HCl (Zofran Odt) 4 mg PO DAILY [facility] Last Admin: 01/18/18 09:30 Dose: 4 mg Ondansetron HCl (Zofran Odt) 4 mg PO Q8H PRN PRN Reason: Nausea/Vomiting Last Admin: 01/13/18 10:38 Dose: 4 mg Pantoprazole Sodium (Protonix Inj) 40 mg IVP BID [facility] Last Admin: 01/18/18 17:16 Dose: 40 mg Prednisone (Prednisone Tab) 2.5 mg PO MOFR [facility] Last Admin: 01/15/18 17:12 Dose: 2.5 mg Prochlorperazine (Compazine) 10 mg IVP Q8 PRN PRN Reason: Nausea/Vomiting Last Admin: 01/18/18 12:00 Dose: 10 mg Sevelamer HCl (Renagel) 800 mg PO TID [facility] Last Admin: 01/18/18 17:17 Dose: 800 mg Timolol Maleate (Timoptic 0.5% Oph Soln) 1 drop OU DAILY [facility] Last Admin: 01/18/18 09:29 Dose: 1 drop Tramadol HCl (Ultram) 50 mg PO Q6 PRN PRN Reason: Pain, moderate (4-7) Last Admin: 01/18/18 11:45 Dose: 50 mg Vancomycin HCl (Vancocin (Oral/Rectal Use)) 250 mg PO Q8 [facility] PRN Reason: Protocol Last Admin: 01/18/18 18:38 Dose: 250 mg - Labs Labs: 01/18/18 04:30 01/18/18 04:30 PT 28.1 Seconds (9.8-13.1) H 01/18/18 04:30 INR 2.5 (0.9-1.2) H 01/18/18 04:30 APTT 35.3 Seconds (25.6-37.1) 01/15/18 16:54 - Head Exam Head Exam: ATRAUMATIC - Eye Exam Eye Exam: Normal appearance - Neck Exam Neck Exam: Full ROM - Respiratory Exam Respiratory Exam: Clear to Ausculation Bilateral - Cardiovascular Exam Cardiovascular Exam: REGULAR RHYTHM - GI/Abdominal Exam GI & Abdominal Exam: Distended Assessment and Plan (1) GI bleed Assessment & Plan: No active bleeding at present. Will d/c NG and may resume diet. Family prefers no endoscopy at this time. Status: Acute (2) Ascites Status: Acute
[2018-01-19] MEDS: Vancomycin 500 mg (Oral/Rectal USE) PO SCH ×3 (00:31→17:17)
[2018-01-19 05:27] LABS: MEAN CELL VOLUME 96.7 fl (81.0-99.0); MEAN CORPUSCULAR HEMOGLOBIN 31.3 pg (27.0-31.0); MEAN CORPUSCULAR HGB CONC 32.4 g/dL (33.0-37.0); RBC 2.89 Mil/uL (3.80-5.20); RED CELL DISTRIBUTION WIDTH 15.3 % (11.5-14.5); WHITE BLOOD COUNT 8.4 K/uL (4.8-10.8)
[2018-01-19 05:38] LABS: ALB/GLOB RATIO 1.1 (1.0-2.1); ALBUMIN 2.9 g/dL (3.5-5.0); CALCIUM 6.7 mg/dL (8.4-10.2)
[2018-01-19 05:44] LABS: INR 1.9 (0.9-1.2); PARTIAL THROMBOPLASTIN TIME 33.7 Seconds (25.6-37.1); PROTHROMBIN TIME 21.2 Seconds (9.8-13.1)
[2018-01-19] MEDS: ESOMEPRAZOLE PO SCH (08:54)
[2018-01-19] MEDS: Digoxin 250 mcg (0.25 mg) Tab PO SCH (08:54)
[2018-01-19] MEDS: Multivitamin With Minerals Tab PO SCH (08:56)
--- NOTE | 2018-01-19 10:50 | CP.CCUPN ---
CCU Subjective - Physician Review Subjective (Free Text): Easily arousable, remains awake and alert, NGT removed yesterday. Small amounts of melanotic stool persist. Other Vitals and I/Os reviewed. ROS: No other pertinent negs or positives on 10+ system review PMSFH: All other Nursing and physician documentation reviewed to date; no new pertinent info noted relevant to current medical problems. EXAM- HEENT: no icterus, no gaze preference, pupils equal and reactive, no icterus NECK: No JVD, supple, carotids equal upstroke bilat/no bruits CHEST: decreased BS bases, no wheezes audible HEART: regular distant, S1S2, no rubs. ABD: soft, ++ distention, no tympany, no palp tenderness, BS hypoactive. EXT: trace edema bilat. No peripheral/ digital cyanosis, no calf tenderness or palpable cords, distal pulses intact and symmetrical. RUE AV shunt with good bruit and thrill. NEURO: no gross focal motor deficits. SKIN: no rashes, warm and dry. LABS: Coags: INR 1.9 WBC= 8.4 HGB= 9.0 PLTs= 126K Na= 139 K= 3.8 CL= 95 HCO3= 27 BUN/Cr= 58/4.0 BS= 68 IMPRESSION / MAJOR PROBLEMS NOW: 1. +C Diff colitis 2. ESRD on CAHD, with s/p Hyperkalemia / Uremia 3. Chronic recurrent Ascites 2 Cirrhosis (?? Cryptogenic ??) 4. Chronic A fib on AC 5. New Coagulopathy; and Chronic Thrombocytopenia on chronic steroids. PLAN: 1. Still trying to optimize Coag profile for a safe paracentesis. Will order more FFP today. 2. Family requesting Cardio eval and clearance before consenting to any endoscopic procedure needing Anesthesia due to past difficulties with administration of anesthesia. 3. No new findings on repeat ECHO. Consider Cardio re-eval to address Pulm HTN seen on repeat ECHO. Serial Lactates have all been normal despite low BP, which is most likely at her baseline, similiar as compared to vitals during last hospitalization in Sep 2017. 4. Try mobilizing OOB to chair as tolerated. CCU Objective - Vital Signs / Intake & Output Vital Signs (Last 4 hours): Vital Signs Temp Pulse Resp BP Pulse Ox 01/19/18 08:00 97.5 F L 70 16 107/47 L 100 Intake and Output (Last 8hrs): Intake & Output 01/18/18 01/19/18 01/19/18 22:59 06:59 14:59 Intake Total 562 150 Output Total 150 50 Balance 412 100 Intake: Oral 240 150 Blood Product 322 Output: Gastric Amount 100 Right Nares 100 Stool 50 50 Other: # Bowel Movements 1 1 - Physical Exam Head: Positive for: Atraumatic, Normocephalic Pupils: Positive for: PERRL Extroacular Muscles: Positive for: EOMI Conjunctiva: Positive for: Normal Ears: Positive for: Normal Mouth: Positive for: Moist Mucous Membranes Neck: Positive for: Normal Range of Motion Respiratory/Chest: Positive for: Clear to Auscultation Cardiovascular: Positive for: Regular Rate and Rhythm Abdomen: Positive for: Distention, Other (tense). Negative for: Tenderness Neurological: Positive for: GCS=15, CN II-XII Intact Psychiatric: Positive for: Alert, Oriented x 3 - Medications Active Medications: Active Medications Generic Name Dose Route Start Last Admin Trade Name Freq PRN Reason Stop Dose Admin Acetaminophen 650 mg 01/09/18 17:10 01/09/18 18:18 Tylenol 325mg Tab PO 650 mg Q6 PRN Administration moderate pain level 4-7 Cinacalcet 30 mg 01/09/18 09:00 01/19/18 08:56 Sensipar PO 30 mg DAILY [facility] Administration Digoxin 0.25 mg 01/10/18 09:00 01/19/18 08:54 Lanoxin PO 0.25 mg MWF [facility] Administration Docusate Sodium 100 mg 01/12/18 13:00 01/19/18 08:53 Colace PO 100 mg BID [facility] Administration Home Med 1 unit 01/17/18 09:00 01/19/18 08:54 Patient's Own Medication PO 1 unit DAILY [facility] Administration Lactulose 20 gm 01/13/18 09:32 01/13/18 13:19 Enulose PO 20 gm BID PRN Administration Constipation Metoprolol Tartrate 25 mg 01/09/18 09:00 01/10/18 09:12 Lopressor PO Not Given DAILY [facility] Midodrine 10 mg 01/10/18 09:00 01/19/18 08:55 Proamatine PO 10 mg Q8 [facility] Administration Multivitamins/Minerals 1 tab 01/09/18 09:00 01/19/18 08:56 Therapeutic-M Tab PO 1 tab DAILY [facility] Administration Ondansetron HCl 4 mg 01/09/18 06:13 Zofran Inj IVP Q6 PRN Nausea/Vomiting Ondansetron HCl 4 mg 01/10/18 09:00 01/19/18 08:56 Zofran Odt PO 4 mg DAILY [facility] Administration Ondansetron HCl 4 mg 01/11/18 17:44 01/13/18 10:38 Zofran Odt PO 4 mg Q8H PRN Administration Nausea/Vomiting Pantoprazole Sodium 40 mg 01/17/18 18:45 01/19/18 08:55 Protonix Inj IVP 40 mg BID [facility] Administration Prednisone 2.5 mg 01/19/18 17:00 Prednisone Tab PO MOFR [facility] Prochlorperazine 10 mg 01/14/18 14:36 01/18/18 12:00 Compazine IVP 10 mg Q8 PRN Administration Nausea/Vomiting Sevelamer HCl 800 mg 01/09/18 09:00 01/19/18 08:55 Renagel PO 800 mg TID [facility] Administration Timolol Maleate 1 drop 01/12/18 11:45 01/19/18 08:56 Timoptic 0.5% Ophth Soln OU 1 drop DAILY [facility] Administration Vancomycin HCl 250 mg 01/15/18 17:00 01/19/18 08:57 Vancocin (Oral/Rectal Use) PO 250 mg Q8 [facility] Administration Protocol - Patient Studies Lab Studies: Microbiology Studies 01/15/18 18:00 Blood Culture - Preliminary Blood-Thru Central Line NO GROWTH AFTER 3 DAYS Lab Studies 01/19/18 01/19/18 01/19/18 Range/Units 04:20 04:20 04:20 WBC 8.4 (4.8-10.8) K/uL RBC 2.89 L (3.80-5.20) Mil/uL Hgb 9.0 L (12.0-16.0) g/dL Hct 27.9 L (34.0-47.0) % MCV 96.7 (81.0-99.0) fl MCH 31.3 H (27.0-31.0) pg MCHC 32.4 L (33.0-37.0) g/dL RDW 15.3 H (11.5-14.5) % Plt Count 126 L (130-400) K/uL PT 21.2 H D (9.8-13.1) Seconds INR 1.9 H D (0.9-1.2) APTT 33.7 (25.6-37.1) Seconds Sodium 139 (132-148) mmol/l Potassium 3.8 (3.6-5.0) MMOL/L Chloride 95 L (98-107) mmol/L Carbon Dioxide 27 (22-30) mmol/L Anion Gap 21 H (10-20) BUN 58 H (7-17) mg/dl Creatinine 4.0 H (0.7-1.2) mg/dl Est GFR ( Amer) 13 Est GFR (Non-Af Amer) 11 Random Glucose 68 (65-105) mg/dL Calcium 6.7 L (8.4-10.2) mg/dL Total Bilirubin 2.0 H (0.2-1.3) mg/dl AST 23 (14-36) U/L ALT 30 (9-52) U/L Alkaline Phosphatase 86 (38-126) U/L Total Protein 5.5 L (6.3-8.2) G/DL Albumin 2.9 L (3.5-5.0) g/dL Globulin 2.5 (2.2-3.9) gm/dL Albumin/Globulin Ratio 1.1 (1.0-2.1) Laboratory Results - last 24 hr 01/19/18 01/19/18 01/19/18 04:20 04:20 04:20 WBC 8.4 RBC 2.89 L Hgb 9.0 L Hct 27.9 L MCV 96.7 MCH 31.3 H MCHC 32.4 L RDW 15.3 H Plt Count 126 L PT 21.2 H D INR 1.9 H D APTT 33.7 Sodium 139 Potassium 3.8 Chloride 95 L Carbon Dioxide 27 Anion Gap 21 H BUN 58 H Creatinine 4.0 H Est GFR ( Amer) 13 Est GFR (Non-Af Amer) 11 Random Glucose 68 Calcium 6.7 L Total Bilirubin 2.0 H AST 23 ALT 30 Alkaline Phosphatase 86 Total Protein 5.5 L Albumin 2.9 L Globulin 2.5 Albumin/Globulin Ratio 1.1 Critical Care Progress Note - Nutrition Nutrition: Nutrition Category Date Time Status Renal Diet [DIET] Diets 01/18/18 Dinner Active
--- NOTE | 2018-01-19 11:11 | CP.PCM.PN ---
Subjective - Date & Time of Evaluation Date of Evaluation: 01/19/18 Time of Evaluation: 11:08 - Subjective Subjective: Waiting for HD shortly. vital sign stable. more albumin on HD Anamia Hbg 9.0 post transfusion and on EPO still waiting for paracentesis pt. is awake feels better no vomiting Objective - Vital Signs/Intake and Output Vital Signs (last 24 hours): Temp Pulse Resp BP Pulse Ox 97.5 F L 70 16 107/47 L 100 01/19/18 08:00 01/19/18 08:00 01/19/18 08:00 01/19/18 08:00 01/19/18 08:00 Intake and Output: 01/19/18 01/19/18 06:59 18:59 Intake Total 150 Output Total 100 Balance 50 - Medications Medications: Current Medications Acetaminophen (Tylenol 325mg Tab) 650 mg PO Q6 PRN PRN Reason: moderate pain level 4-7 Last Admin: 01/09/18 18:18 Dose: 650 mg Cinacalcet (Sensipar) 30 mg PO DAILY [facility] Last Admin: 01/19/18 08:56 Dose: 30 mg Digoxin (Lanoxin) 0.25 mg PO MWF [facility] Last Admin: 01/19/18 08:54 Dose: 0.25 mg Docusate Sodium (Colace) 100 mg PO BID [facility] Last Admin: 01/19/18 08:53 Dose: 100 mg Home Med (Patient's Own Medication) 1 unit PO DAILY [facility] Last Admin: 01/19/18 08:54 Dose: 1 unit Lactulose (Enulose) 20 gm PO BID PRN PRN Reason: Constipation Last Admin: 01/13/18 13:19 Dose: 20 gm Metoprolol Tartrate (Lopressor) 25 mg PO DAILY [facility] Last Admin: 01/10/18 09:12 Dose: Not Given Midodrine (Proamatine) 10 mg PO Q8 [facility] Last Admin: 01/19/18 08:55 Dose: 10 mg Multivitamins/Minerals (Therapeutic-M Tab) 1 tab PO DAILY [facility] Last Admin: 01/19/18 08:56 Dose: 1 tab Ondansetron HCl (Zofran Inj) 4 mg IVP Q6 PRN PRN Reason: Nausea/Vomiting Ondansetron HCl (Zofran Odt) 4 mg PO DAILY [facility] Last Admin: 01/19/18 08:56 Dose: 4 mg Ondansetron HCl (Zofran Odt) 4 mg PO Q8H PRN PRN Reason: Nausea/Vomiting Last Admin: 01/13/18 10:38 Dose: 4 mg Pantoprazole Sodium (Protonix Inj) 40 mg IVP BID [facility] Last Admin: 01/19/18 08:55 Dose: 40 mg Prednisone (Prednisone Tab) 2.5 mg PO MOFR [facility] Prochlorperazine (Compazine) 10 mg IVP Q8 PRN PRN Reason: Nausea/Vomiting Last Admin: 01/18/18 12:00 Dose: 10 mg Sevelamer HCl (Renagel) 800 mg PO TID [facility] Last Admin: 01/19/18 08:55 Dose: 800 mg Timolol Maleate (Timoptic 0.5% Oph Soln) 1 drop OU DAILY [facility] Last Admin: 01/19/18 08:56 Dose: 1 drop Vancomycin HCl (Vancocin (Oral/Rectal Use)) 250 mg PO Q8 [facility] PRN Reason: Protocol Last Admin: 01/19/18 08:57 Dose: 250 mg - Labs Labs: 01/19/18 04:20 01/19/18 04:20 PT 21.2 Seconds (9.8-13.1) H D 01/19/18 04:20 INR 1.9 (0.9-1.2) H D 01/19/18 04:20 APTT 33.7 Seconds (25.6-37.1) 01/19/18 04:20 - Constitutional Appears: No Acute Distress - Eye Exam Eye Exam: Conjunctival injection - ENT Exam ENT Exam: Mucous Membranes Moist - Respiratory Exam Respiratory Exam: Rhonchi, NORMAL BREATHING PATTERN. absent: Chest Wall Tenderness - Cardiovascular Exam Cardiovascular Exam: Irregular Rhythm. absent: Gallop, JVD, Rubs - GI/Abdominal Exam GI & Abdominal Exam: Soft, Normal Bowel Sounds - Extremities Exam Extremities Exam: absent: Calf Tenderness - Back Exam Back Exam: absent: CVA tenderness (L), CVA tenderness (R) - Neurological Exam Neurological Exam: Alert - Psychiatric Exam Psychiatric exam: Normal Affect - Skin Skin Exam: absent: Cyanosis Assessment and Plan (1) Abdominal pain Status: Acute (2) Ascites Status: Acute (3) ESRD (end stage renal disease) on dialysis Assessment & Plan: Waiting for HD shortly. vital sign stable. more albumin on HD Anamia Hbg 9.0 post transfusion and on EPO still waiting for paracentesis #2 ascitis status post paracentesis previously #3 abdominal pain improving somewhat #4 chf history and volume overloaded. #5 H/O pericardial effusion, #6 hypotension #7 hypoalbuminemia patient need nutritional counseling with the dietitian. #8 history of hyperphosphatemia and secondary hyperparathyroidism #9 debility Status: Acute
--- NOTE | 2018-01-19 13:26 | CP.PCM.PN ---
Subjective - Date & Time of Evaluation Date of Evaluation: 01/19/18 Time of Evaluation: 13:00 - Subjective Subjective: Pt has no fever abd pain better no vomiting tolerated Po diet Pt sched for HD today also for transfusion of 2 unit FFP today no CP no SOB Objective - Vital Signs/Intake and Output Vital Signs (last 24 hours): Temp Pulse Resp BP Pulse Ox 97.3 F L 70 17 102/49 L 100 01/19/18 12:00 01/19/18 12:00 01/19/18 12:00 01/19/18 12:00 01/19/18 12:00 Intake and Output: 01/19/18 01/19/18 06:59 18:59 Intake Total 150 Output Total 100 Balance 50 - Medications Medications: Current Medications Acetaminophen (Tylenol 325mg Tab) 650 mg PO Q6 PRN PRN Reason: moderate pain level 4-7 Last Admin: 01/09/18 18:18 Dose: 650 mg Cinacalcet (Sensipar) 30 mg PO DAILY [facility] Last Admin: 01/19/18 08:56 Dose: 30 mg Digoxin (Lanoxin) 0.25 mg PO MWF [facility] Last Admin: 01/19/18 08:54 Dose: 0.25 mg Docusate Sodium (Colace) 100 mg PO BID [facility] Last Admin: 01/19/18 08:53 Dose: 100 mg Home Med (Patient's Own Medication) 1 unit PO DAILY [facility] Last Admin: 01/19/18 08:54 Dose: 1 unit Lactulose (Enulose) 20 gm PO BID PRN PRN Reason: Constipation Last Admin: 01/13/18 13:19 Dose: 20 gm Metoprolol Tartrate (Lopressor) 25 mg PO DAILY [facility] Last Admin: 01/10/18 09:12 Dose: Not Given Midodrine (Proamatine) 10 mg PO Q8 [facility] Last Admin: 01/19/18 08:55 Dose: 10 mg Multivitamins/Minerals (Therapeutic-M Tab) 1 tab PO DAILY [facility] Last Admin: 01/19/18 08:56 Dose: 1 tab Ondansetron HCl (Zofran Inj) 4 mg IVP Q6 PRN PRN Reason: Nausea/Vomiting Ondansetron HCl (Zofran Odt) 4 mg PO DAILY [facility] Last Admin: 01/19/18 08:56 Dose: 4 mg Ondansetron HCl (Zofran Odt) 4 mg PO Q8H PRN PRN Reason: Nausea/Vomiting Last Admin: 01/13/18 10:38 Dose: 4 mg Pantoprazole Sodium (Protonix Inj) 40 mg IVP BID [facility] Last Admin: 01/19/18 08:55 Dose: 40 mg Prednisone (Prednisone Tab) 2.5 mg PO MOFR [facility] Prochlorperazine (Compazine) 10 mg IVP Q8 PRN PRN Reason: Nausea/Vomiting Last Admin: 01/18/18 12:00 Dose: 10 mg Sevelamer HCl (Renagel) 800 mg PO TID [facility] Last Admin: 01/19/18 08:55 Dose: 800 mg Timolol Maleate (Timoptic 0.5% Ophth Soln) 1 drop OU DAILY [facility] Last Admin: 01/19/18 08:56 Dose: 1 drop Vancomycin HCl (Vancocin (Oral/Rectal Use)) 250 mg PO Q8 [facility] PRN Reason: Protocol Last Admin: 01/19/18 08:57 Dose: 250 mg - Labs Labs: 01/19/18 04:20 01/19/18 04:20 PT 21.2 Seconds (9.8-13.1) H D 01/19/18 04:20 INR 1.9 (0.9-1.2) H D 01/19/18 04:20 APTT 33.7 Seconds (25.6-37.1) 01/19/18 04:20 - Constitutional Appears: No Acute Distress, Chronically Ill - Head Exam Head Exam: NORMAL INSPECTION, NORMOCEPHALIC - Eye Exam Eye Exam: EOMI, Normal appearance Pupil Exam: NORMAL ACCOMODATION - ENT Exam ENT Exam: Mucous Membranes Moist, Normal External Ear Exam - Neck Exam Neck Exam: Full ROM. absent: Meningismus - Respiratory Exam Respiratory Exam: Rales (minimal rales bases), NORMAL BREATHING PATTERN. absent : Respiratory Distress - Cardiovascular Exam Cardiovascular Exam: Irregular Rhythm, +S1, +S2 - GI/Abdominal Exam GI & Abdominal Exam: Distended, Firm, mild Tenderness, Normal Bowel Sounds - Extremities Exam Extremities Exam: Normal Capillary Refill. absent: Calf Tenderness, Pedal Edema Additional comments: right arm AVF - Back Exam Back Exam: absent: CVA tenderness (L), CVA tenderness (R) - Neurological Exam Neurological Exam: Alert, Awake, CN II-XII Intact, Oriented x3 - Psychiatric Exam Psychiatric exam: Flat Affect - Skin Skin Exam: Dry, Normal Color, Warm Assessment and Plan - Assessment and Plan (Free Text) Assessment: 77 y/o lady with Hx of ESRD on HD, Cirrhosis with ascites requiring at least 2x per month Paracentesis, was brought in because of abdominal pain. Patient missed her dialysis because of the pain. In the ED - patient was noted to be slightly hypotensive with BP in the 80 systolic and her Lactate was elevated at 2.4 - she was then admitted to ICU and started on Levophed. CT of the abdomen showed 1. Cirrhosis of liver, large abdominal and pelvic ascites. 2. Small loculated right pleural effusion with pleural calcifications. 3. Stable noncalcified nodules in the right lower lobe, the largest measures 8 mm. In a low risk patient follow-up in 12 month interval and in a high-risk patient follow-up in six-month interval is recommended to assess stability 4. Cholelithiasis. 5. Polycystic kidneys. Her stool work up reported positive for c.diff and she was started on Vanco Po. Received IV albumin and HD. 01/15 Eliquis kept on hold for abdominal paracentesis however Paracentesis on hold due to elevated INR 1. Anemia of acute blood loss secondary to upper GI bleed on chronic anemia of kidney disease hgb dropped to 6.4 , Hgb now 9.0 post transfusion of 2 units PRBC With coffee ground emesis Placed NGT - now d/c , Renal diet restarted GI consulted Started Protonix 40 mg iv BID Zofran for nausea Family opting not to do EGD unless seen by Cardio - Dr Bui consulted 2. Coagulopathy Most likely secondary to liver cirrhosis Transfused 4 unit FFP , given Vitamin K repeat PT/INr 1.9 today - will give 2 mpore units Abdominal paracentesis cancelled due to coagulopathy 3. ESRD on HD with Hyperkalemia secondary to missed HD on admission Nephrology following pt cont TIW HD cont Renagel 4 Abdominal pain sec to Ascites and C . diff colitis SBP ruled out last Paracentesis done by IR on 01/10 showed no SBP paracentesis on hold due to coagulopathy Given Vitamin K and FFP Hold Eliquis 5. C. Diff colitis Stool positive for Toxin and Ag Started on Vanco PO ID on Consult With clear mucoid BM 6.Orthostatic Hypotension pt has low baseline BP and is on Midodrine at home Increased Midodrine to 10 mg TID Called her aircraft systems repairer Dr. Bui Continue Albumin IV Q 8 hours 7. Chronic A Fib rate controlled on digoxin Eliquis on hold for procedure 8. 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 DVT prophylaxis SCD Eliquis on hold
[2018-01-19] MEDS ORDERED: Albumin Human 25% (12.5 gm/50 ml) IV ONE ×2 (21:22→23:10)
[2018-01-20] MEDS: guaiFENesin-DM 600-30 mg ER Tab PO SCH ×3 (02:13→17:06)
[2018-01-20] MEDS: Vancomycin 500 mg (Oral/Rectal USE) PO SCH ×3 (02:46→17:06)
[2018-01-20 05:44] LABS: INR 1.6 (0.9-1.2); PROTHROMBIN TIME 17.4 Seconds (9.8-13.1)
[2018-01-20 05:50] LABS: HEMOGLOBIN 9.2 g/dL (12.0-16.0); MEAN CELL VOLUME 96.2 fl (81.0-99.0); MEAN CORPUSCULAR HEMOGLOBIN 31.9 pg (27.0-31.0); MEAN CORPUSCULAR HGB CONC 33.1 g/dL (33.0-37.0); RBC 2.89 Mil/uL (3.80-5.20); RED CELL DISTRIBUTION WIDTH 15.5 % (11.5-14.5); WHITE BLOOD COUNT 9.6 K/uL (4.8-10.8)
[2018-01-20 06:01] LABS: CALCIUM 7.3 mg/dL (8.4-10.2)
--- NOTE | 2018-01-20 08:41 | CP.PCM.PN ---
Subjective - Date & Time of Evaluation Date of Evaluation: 01/20/18 Time of Evaluation: 08:30 - Subjective Subjective: Patient seen and examined bedside. Chronically ill female lying in bed complaining of abdominal discomfort , unable to have a BM, feeling constipated. With abdominal ascites .No episodes of nausea or vomiting today Tolerating Po but poor PO intake. No acute issues overnight Unable to finish HD yesterday asked to have it terminated early BP 125/57 HR 70 afebrile O2sat 99% on 2 L O2 via NC BUN/ Cr 44/2.7 INR 1.6 WBc 9.6 Hgb 9.2 Objective - Vital Signs/Intake and Output Vital Signs (last 24 hours): Temp Pulse Resp BP Pulse Ox 97.8 F 70 20 85/44 L 100 01/20/18 04:00 01/20/18 04:00 01/20/18 04:00 01/20/18 04:00 01/20/18 04:00 Intake and Output: 01/20/18 01/20/18 06:59 18:59 Intake Total 920 Output Total 1100 Balance -180 - Medications Medications: Current Medications Acetaminophen (Tylenol 325mg Tab) 650 mg PO Q6 PRN PRN Reason: moderate pain level 4-7 Last Admin: 01/20/18 00:54 Dose: 650 mg Bisacodyl (Dulcolax) 10 mg ND ONCE ONE Stop: 01/20/18 08:33 Cinacalcet (Sensipar) 30 mg PO DAILY [facility] Last Admin: 01/19/18 08:56 Dose: 30 mg Digoxin (Lanoxin) 0.25 mg PO MWF [facility] Last Admin: 01/19/18 08:54 Dose: 0.25 mg Docusate Sodium (Colace) 100 mg PO BID [facility] Last Admin: 01/19/18 17:14 Dose: 100 mg Guaifenesin/Dextromethorphan (Mucinex-Dm 600-30 Mg) 1 tab PO BID [facility] Last Admin: 01/20/18 02:13 Dose: 1 tab Home Med (Patient's Own Medication) 1 unit PO DAILY [facility] Last Admin: 01/19/18 08:54 Dose: 1 unit Lactulose (Enulose) 20 gm PO BID PRN PRN Reason: Constipation Last Admin: 01/13/18 13:19 Dose: 20 gm Metoprolol Tartrate (Lopressor) 25 mg PO DAILY [facility] Last Admin: 01/10/18 09:12 Dose: Not Given Midodrine (Proamatine) 10 mg PO Q8 [facility] Last Admin: 01/20/18 00:55 Dose: 10 mg Multivitamins/Minerals (Therapeutic-M Tab) 1 tab PO DAILY [facility] Last Admin: 01/19/18 08:56 Dose: 1 tab Ondansetron HCl (Zofran Inj) 4 mg IVP Q6 PRN PRN Reason: Nausea/Vomiting Ondansetron HCl (Zofran Odt) 4 mg PO DAILY [facility] Last Admin: 01/19/18 08:56 Dose: 4 mg Ondansetron HCl (Zofran Odt) 4 mg PO Q8H PRN PRN Reason: Nausea/Vomiting Last Admin: 01/13/18 10:38 Dose: 4 mg Pantoprazole Sodium (Protonix Inj) 40 mg IVP BID [facility] Last Admin: 01/19/18 13:00 Dose: 40 mg Prednisone (Prednisone Tab) 2.5 mg PO MOFR [facility] Last Admin: 01/19/18 17:15 Dose: 2.5 mg Prochlorperazine (Compazine) 10 mg IVP Q8 PRN PRN Reason: Nausea/Vomiting Last Admin: 01/18/18 12:00 Dose: 10 mg Sevelamer HCl (Renagel) 800 mg PO TID [facility] Last Admin: 01/19/18 17:17 Dose: 800 mg Timolol Maleate (Timoptic 0.5% Ophth Soln) 1 drop OU DAILY [facility] Last Admin: 01/19/18 08:56 Dose: 1 drop Vancomycin HCl (Vancocin (Oral/Rectal Use)) 250 mg PO Q8 [facility] PRN Reason: Protocol Last Admin: 01/20/18 02:46 Dose: 250 mg - Labs Labs: 01/20/18 04:45 01/20/18 04:45 PT 17.4 Seconds (9.8-13.1) H 01/20/18 04:45 INR 1.6 (0.9-1.2) H 01/20/18 04:45 APTT 33.7 Seconds (25.6-37.1) 01/19/18 04:20 - Constitutional Appears: Chronically Ill - Head Exam Head Exam: ATRAUMATIC, NORMAL INSPECTION, NORMOCEPHALIC - Eye Exam Eye Exam: EOMI, PERRL Pupil Exam: NORMAL ACCOMODATION - ENT Exam ENT Exam: Mucous Membranes Moist, Normal Exam - Neck Exam Neck Exam: Full ROM, Normal Inspection - Respiratory Exam Respiratory Exam: Rales (bibasilar), NORMAL BREATHING PATTERN. absent: Rhonchi , Wheezes, Respiratory Distress - Cardiovascular Exam Cardiovascular Exam: REGULAR RHYTHM, +S1, +S2. absent: JVD - GI/Abdominal Exam GI & Abdominal Exam: Distended (ascites ), Hypoactive Bowel Sounds. absent: Guarding, Rebound - Rectal Exam Rectal Exam: Deferred - Extremities Exam Extremities Exam: Normal Inspection. absent: Pedal Edema - Neurological Exam Neurological Exam: Alert, Awake, CN II-XII Intact, Oriented x3 - Psychiatric Exam Psychiatric exam: Normal Affect - Skin Skin Exam: Dry, Pallor, Warm Assessment and Plan - Assessment and Plan (Free Text) Assessment: 77 y/o lady with Hx of ESRD on HD, Cirrhosis with ascites requiring at least 2x per month Paracentesis, was brought in because of abdominal pain. Patient missed her dialysis because of the pain. In the ED - patient was noted to be slightly hypotensive with BP in the 80 systolic and her Lactate was elevated at 2.4 - she was then admitted to ICU and started on Levophed. CT of the abdomen showed 1. Cirrhosis of liver, large abdominal and pelvic ascites. 2. Small loculated right pleural effusion with pleural calcifications. 3. Stable noncalcified nodules in the right lower lobe, the largest measures 8 mm. In a low risk patient follow-up in 12 month interval and in a high-risk patient follow-up in six-month interval is recommended to assess stability 4. Cholelithiasis. 5. Polycystic kidneys. Her stool work up reported positive for c.diff and she was started on Vanco Po. Received IV albumin and HD.Eliquis kept on hold in preparation for abdominal parasenthesis. Due to elevated INR upt to 3.4 abdominal parasenthesis was not performed given the high risk for bleeding . FFP and Vitamin K given to correct coagulopathy. During this hospital stay she developed multiple coffee ground episodes of vomiting so NGT was placed , started Protonix BI D, GI consulted and wsa tyransfused with PORBC due to acute blood loss anemia, At present no more bleeding episodes . NGT removed and tolerating direct . Family opted against EGD At present complaining of feeling constipated , unable to have BM INR 1.6 today guarded prognosis 1. Anemia of acute blood loss secondary to upper GI bleed on chronic anemia of kidney disease Hgb dropped to 6.4 , Hgb now 9.2 post transfusion of 2 units PRBC No more episodes of CURT bleed NGT removed and tolerating diet Continue Protonix BID GI on board. Family opted against EGD for now Zofran for nausea 2. Coagulopathy Most likely secondary to liver cirrhosis Transfused 6 unit FFP , given Vitamin K INR 1.6 today waiting for coagulopathy correction for parasenthesis 3. ESRD on HD with Hyperkalemia secondary to missed HD on admission Nephrology following pt cont TIW HD cont [place]olagel Had HD yesterday and asked to terminate it early.Only 1 L fluid was removed 4 Abdominal pain sec to Ascites and C . diff colitis SBP ruled out last Paracentesis done by IR on 01/10 showed no SBP paracentesis on hold due to coagulopathy Given Vitamin K and FFP Hold Eliquis on Vanco PO for C.diff 5. C. Diff colitis Stool positive for Toxin and Ag on Vanco PO ID on Consult Constipated Today. Will give Dulcolax suppository 6.Orthostatic Hypotension pt has low baseline BP and is on Midodrine at home Increased Midodrine to 10 mg TID Called her loading unit operator Dr. Bui Continue Albumin IV PRN 7. Chronic A Fib rate controlled on digoxin Eliquis on hold for procedure 8. 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 DVT prophylaxis SCD Eliquis on hold
[2018-01-20] MEDS: ESOMEPRAZOLE PO SCH (09:14)
[2018-01-20] MEDS: Multivitamin With Minerals Tab PO SCH (09:15)
--- NOTE | 2018-01-20 13:34 | CP.PCM.PN ---
Subjective - Date & Time of Evaluation Date of Evaluation: 01/20/18 Time of Evaluation: 13:28 - Subjective Subjective: Nephrology Consultation: Assessment: stable Ascites, missed HD with Hyperkalemia: now improved End stage renal disease on hemodialysis (MWF) via AVF with missed HD. Anemia, Hyperphosphatemia, Secondary hyperparathyroidism Plan: pt had HD yesterday, she tolerated well. Continue with Nephrovite 1 tab/day. no acute need for HD today, likely will plan for next HD monday PRBC as needed for anemia. added OSCAR with HD as last Hb 9.2 Continue with phos binders, last phos level 4.6 Patient not on RAAS tashi as BP low pt also on sensipar. corrected Ca level 8.1, hence can continue for now Glycemic control, Dialysis consistent diet Further work up/management as per primary team Dose meds/antibiotics (if needed) for ESRD status. Avoid fleets enema/magnesium based laxatives. Thanks for allowing me to participate in care of your patient. Will follow patient with you. Please call if any Qs Dr Jas Hughes Office: [phone] ROS: denies CP/SOB/nausea. rest all other neg except pain abdomen Physical Examination: General Appearance: Comfortable, in no acute respiratory distress, co-operative . Vitals reviewed and noted as below Head; Atraumatic, normocephalic ENT: no ulcers no thrush. Tongue is midline. Oropharynx: no rash or ulcers. EYES: Pupils are equal, round and reactive to light accommodation. Eye muscles and extraocular movement intact. Sclera is anicteric. Neck; supple no lymphadenopathy, no thyromegaly or bruit Lungs: Normal respiratory rate/effort. Breath sounds bilateral equal and with few basal crackles Heart: Normal rate. s1s2 normal. No rub or gallop. Extremities: no edema. No varicose veins Neurological: Patient is alert, awake and oriented. No focal deficit. Strength bilateral appropriate and equal Skin: Warm and dry. Normal turgor. No rash. Palpitation: Normal elasticity for age Abdomen: Abdomen is soft. Bowel sounds +. There is mild abdominal tenderness, no guarding/rigidity or organomegaly. distended with ascitic Psych: lack insight and has normal affect MSK: no joint tenderness or swelling. Digits and nails normal, no deformity : kidney or bladder not palpable Access: AVF Labs/imaging reviewed. Past medical history, past surgical history, family history, social history, allergy reviewed and noted as below Objective - Vital Signs/Intake and Output Vital Signs (last 24 hours): Temp Pulse Resp BP Pulse Ox 97.4 F L 70 18 111/54 L 100 01/20/18 12:00 01/20/18 12:00 01/20/18 12:00 01/20/18 12:00 01/20/18 12:00 Intake and Output: 01/20/18 01/20/18 06:59 18:59 Intake Total 920 320 Output Total 1100 Balance -180 320 - Medications Medications: Current Medications Acetaminophen (Tylenol 325mg Tab) 650 mg PO Q6 PRN PRN Reason: moderate pain level 4-7 Last Admin: 01/20/18 00:54 Dose: 650 mg Cinacalcet (Sensipar) 30 mg PO DAILY [facility] Last Admin: 01/20/18 09:15 Dose: 30 mg Digoxin (Lanoxin) 0.25 mg PO MWF [facility] Last Admin: 01/19/18 08:54 Dose: 0.25 mg Docusate Sodium (Colace) 100 mg PO BID [facility] Last Admin: 01/20/18 09:08 Dose: 100 mg Guaifenesin/Dextromethorphan (Mucinex-Dm 600-30 Mg) 1 tab PO BID [facility] Last Admin: 01/20/18 09:08 Dose: 1 tab Home Med (Patient's Own Medication) 1 unit PO DAILY [facility] Last Admin: 01/20/18 09:14 Dose: 1 unit Lactulose (Enulose) 20 gm PO BID PRN PRN Reason: Constipation Last Admin: 01/13/18 13:19 Dose: 20 gm Metoprolol Tartrate (Lopressor) 25 mg PO DAILY [facility] Last Admin: 01/10/18 09:12 Dose: Not Given Midodrine (Proamatine) 10 mg PO Q8 [facility] Last Admin: 01/20/18 09:07 Dose: 10 mg Multivitamins/Minerals (Therapeutic-M Tab) 1 tab PO DAILY [facility] Last Admin: 01/20/18 09:15 Dose: 1 tab Ondansetron HCl (Zofran Inj) 4 mg IVP Q6 PRN PRN Reason: Nausea/Vomiting Ondansetron HCl (Zofran Odt) 4 mg PO DAILY [facility] Last Admin: 01/20/18 09:27 Dose: 4 mg Ondansetron HCl (Zofran Odt) 4 mg PO Q8H PRN PRN Reason: Nausea/Vomiting Last Admin: 01/13/18 10:38 Dose: 4 mg Pantoprazole Sodium (Protonix Inj) 40 mg IVP BID [facility] Last Admin: 01/20/18 09:07 Dose: 40 mg Prednisone (Prednisone Tab) 2.5 mg PO MOFR [facility] Last Admin: 01/19/18 17:15 Dose: 2.5 mg Prochlorperazine (Compazine) 10 mg IVP Q8 PRN PRN Reason: Nausea/Vomiting Last Admin: 01/20/18 09:09 Dose: 10 mg Sevelamer HCl (Renagel) 800 mg PO TID [facility] Last Admin: 01/20/18 09:15 Dose: 800 mg Timolol Maleate (Timoptic 0.5% [facility]) 1 drop OU DAILY [facility] Last Admin: 01/20/18 09:16 Dose: 1 drop Vancomycin HCl (Vancocin (Oral/Rectal Use)) 250 mg PO Q8 [facility] PRN Reason: Protocol Last Admin: 01/20/18 09:16 Dose: 250 mg - Labs Labs: 01/20/18 04:45 01/20/18 04:45 PT 17.4 Seconds (9.8-13.1) H 01/20/18 04:45 INR 1.6 (0.9-1.2) H 01/20/18 04:45 APTT 33.7 Seconds (25.6-37.1) 01/19/18 04:20
--- NOTE | 2018-01-20 14:41 | CP.PCM.PN ---
Subjective - Date & Time of Evaluation Date of Evaluation: 01/20/18 Time of Evaluation: 14:41 - Subjective Subjective: ID note- Pt. seen and examined today in ICU. pt. more awake and alert today. her family is at her bedside. c/o no BM for 2 days. denies any abd. pain. no nausea today. had HD yesterday. Objective - Vital Signs/Intake and Output Vital Signs (last 24 hours): Temp Pulse Resp BP Pulse Ox 97.4 F L 70 20 104/42 L 100 01/20/18 12:00 01/20/18 14:00 01/20/18 14:00 01/20/18 14:00 01/20/18 14:00 Intake and Output: 01/20/18 01/20/18 06:59 18:59 Intake Total 920 324 Output Total 1100 Balance -180 324 - Medications Medications: Current Medications Acetaminophen (Tylenol 325mg Tab) 650 mg PO Q6 PRN PRN Reason: moderate pain level 4-7 Last Admin: 01/20/18 00:54 Dose: 650 mg Cinacalcet (Sensipar) 30 mg PO DAILY [facility] Last Admin: 01/20/18 09:15 Dose: 30 mg Digoxin (Lanoxin) 0.25 mg PO MWF [facility] Last Admin: 01/19/18 08:54 Dose: 0.25 mg Docusate Sodium (Colace) 100 mg PO BID [facility] Last Admin: 01/20/18 09:08 Dose: 100 mg Epoetin Blaed (Procrit) 8,000 unit IV [facility] [place] Guaifenesin/Dextromethorphan (Mucinex-Dm 600-30 Mg) 1 tab PO BID [facility] Last Admin: 01/20/18 09:08 Dose: 1 tab Home Med (Patient's Own Medication) 1 unit PO DAILY [facility] Last Admin: 01/20/18 09:14 Dose: 1 unit Lactulose (Enulose) 20 gm PO BID PRN PRN Reason: Constipation Last Admin: 01/13/18 13:19 Dose: 20 gm Metoprolol Tartrate (Lopressor) 25 mg PO DAILY [facility] Last Admin: 01/10/18 09:12 Dose: Not Given Midodrine (Proamatine) 10 mg PO Q8 [facility] Last Admin: 01/20/18 09:07 Dose: 10 mg Multivitamins/Minerals (Therapeutic-M Tab) 1 tab PO DAILY [facility] Last Admin: 01/20/18 09:15 Dose: 1 tab Ondansetron HCl (Zofran Inj) 4 mg IVP Q6 PRN PRN Reason: Nausea/Vomiting Ondansetron HCl (Zofran Odt) 4 mg PO DAILY [facility] Last Admin: 01/20/18 09:27 Dose: 4 mg Ondansetron HCl (Zofran Odt) 4 mg PO Q8H PRN PRN Reason: Nausea/Vomiting Last Admin: 01/13/18 10:38 Dose: 4 mg Pantoprazole Sodium (Protonix Inj) 40 mg IVP BID [facility] Last Admin: 01/20/18 09:07 Dose: 40 mg Prednisone (Prednisone Tab) 2.5 mg PO MOFR [facility] Last Admin: 01/19/18 17:15 Dose: 2.5 mg Prochlorperazine (Compazine) 10 mg IVP Q8 PRN PRN Reason: Nausea/Vomiting Last Admin: 01/20/18 09:09 Dose: 10 mg Sevelamer HCl (Renagel) 800 mg PO TID [facility] Last Admin: 01/20/18 09:15 Dose: 800 mg Timolol Maleate (Timoptic 0.5% Ophth Soln) 1 drop OU DAILY [facility] Last Admin: 01/20/18 09:16 Dose: 1 drop Vancomycin HCl (Vancocin (Oral/Rectal Use)) 250 mg PO Q8 [facility] PRN Reason: Protocol Last Admin: 01/20/18 09:16 Dose: 250 mg - Labs Labs: - Additional Findings Additional findings: - Constitutional Appears: Non-toxic, No Acute Distress - Head Exam Head Exam: ATRAUMATIC - Eye Exam Eye Exam: EOMI, PERRL - ENT Exam ENT Exam: Normal Oropharynx - Neck Exam Neck exam: Positive for: Full Rom - Respiratory Exam Respiratory Exam: NORMAL BREATHING PATTERN - Cardiovascular Exam Cardiovascular Exam: RRR, +S1, +S2 - GI/Abdominal Exam Additional comments: soft, distended, + ascites minimal tenderness throughout abdomen but no guarding, no rebound + BS - Extremities Exam Additional comments: trace edema b/L LE - Neurological Exam Neurological exam: awake and alert today Laboratory Results - last 72 hr 01/17/18 01/17/18 01/17/18 08:12 18:43 20:30 WBC RBC Hgb Hct MCV MCH MCHC RDW Plt Count PT 26.8 H D 28.0 H INR 2.4 H D 2.5 H APTT Sodium Potassium Chloride Carbon Dioxide Anion Gap BUN Creatinine Est GFR ( Amer) Est GFR (Non-Af Amer) POC Glucose (mg/dL) Random Glucose Calcium Total Bilirubin AST ALT Alkaline Phosphatase Total Protein Albumin Globulin Albumin/Globulin Ratio Blood Type A POSITIVE Antibody Screen Negative Crossmatch See Detail BBK History Checked Patient has bt 01/18/18 01/18/18 01/18/18 04:30 04:30 04:30 WBC 8.7 RBC 2.87 L Hgb 9.1 L D Hct 27.4 L MCV 95.4 MCH 31.7 H MCHC 33.2 RDW 14.8 H Plt Count 122 L D PT 28.1 H INR 2.5 H APTT Sodium 139 Potassium 3.4 L Chloride 94 L Carbon Dioxide 26 Anion Gap 22 H BUN 44 H Creatinine 3.2 H Est GFR ( Amer) 17 Est GFR (Non-Af Amer) 14 POC Glucose (mg/dL) Random Glucose 43 L Calcium 7.4 L Total Bilirubin 2.6 H AST 22 ALT 29 Alkaline Phosphatase 81 Total Protein 5.4 L Albumin 3.1 L Globulin 2.3 Albumin/Globulin Ratio 1.3 Blood Type Antibody Screen Crossmatch BBK History Checked 01/18/18 01/18/18 01/19/18 06:52 07:21 04:20 WBC 8.4 RBC 2.89 L Hgb 9.0 L Hct 27.9 L MCV 96.7 MCH 31.3 H MCHC 32.4 L RDW 15.3 H Plt Count 126 L PT INR APTT Sodium Potassium Chloride Carbon Dioxide Anion Gap BUN Creatinine Est GFR ( Amer) Est GFR (Non-Af Amer) POC Glucose (mg/dL) 38 L* 186 H Random Glucose Calcium Total Bilirubin AST ALT Alkaline Phosphatase Total Protein Albumin Globulin Albumin/Globulin Ratio Blood Type Antibody Screen Crossmatch BBK History Checked 01/19/18 01/19/18 01/20/18 04:20 04:20 04:45 WBC 9.6 RBC 2.89 L Hgb 9.2 L Hct 27.8 L MCV 96.2 MCH 31.9 H MCHC 33.1 RDW 15.5 H Plt Count 149 PT 21.2 H D INR 1.9 H D APTT 33.7 Sodium 139 Potassium 3.8 Chloride 95 L Carbon Dioxide 27 Anion Gap 21 H BUN 58 H Creatinine 4.0 H Est GFR ( Amer) 13 Est GFR (Non-Af Amer) 11 POC Glucose (mg/dL) Random Glucose 68 Calcium 6.7 L Total Bilirubin 2.0 H AST 23 ALT 30 Alkaline Phosphatase 86 Total Protein 5.5 L Albumin 2.9 L Globulin 2.5 Albumin/Globulin Ratio 1.1 Blood Type Antibody Screen Crossmatch BBK History Checked 01/20/18 01/20/18 04:45 04:45 WBC RBC Hgb Hct MCV MCH MCHC RDW Plt Count PT 17.4 H INR 1.6 H APTT Sodium 138 Potassium 3.8 Chloride 93 L Carbon Dioxide 27 Anion Gap 22 H BUN 44 H Creatinine 2.7 H Est GFR ( Amer) 21 Est GFR (Non-Af Amer) 17 POC Glucose (mg/dL) Random Glucose 91 Calcium 7.3 L Total Bilirubin AST ALT Alkaline Phosphatase Total Protein Albumin Globulin Albumin/Globulin Ratio Blood Type Antibody Screen Crossmatch BBK History Checked Microbiology 01/15/18 18:00 Blood-Thru Central Line Blood Culture - Preliminary NO GROWTH AFTER 4 DAYS 01/10/18 14:12 Ascitic Fluid Gram Stain - Final 01/10/18 14:12 Ascitic Fluid Body Fluid Culture - Final No growth. 01/09/18 03:15 Blood-Venous Blood Culture - Final NO GROWTH AFTER 5 DAYS 01/09/18 03:15 Blood-Venous Gram Stain - Final TEST NOT PERFORMED 01/09/18 03:33 Blood-Venous Blood Culture - Final NO GROWTH AFTER 5 DAYS 01/09/18 03:33 Blood-Venous Gram Stain - Final TEST NOT PERFORMED 01/09/18 18:36 Naris MRSA Culture (Admit) - Final MRSA NOT DETECTED Assessment and Plan (1) Ascites Status: Acute (2) ESRD (end stage renal disease) on dialysis Status: Acute (3) Abdominal pain Status: Acute (4) C. 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 afebrile normal wbc count ascitic fluid cell count not c/w SBP. cxr no infiltrates , right lung Pleural effusion reported on CT . blood cx- neg x 2 ascites fluid gram stain - Cx negative stool c.diff - positive for both AG and toxin reported today from 01/11/2018 plan- continue with oral vanco for + stool c.diff AG and toxin. day #6 check repeat stool c.diff with the next BM. ascites management as per GI and ICU team. HD as per renal. was given stool softeners as per nurse . al above d/w patient. ICU time 45 minutes. .
[2018-01-21] MEDS: Vancomycin 500 mg (Oral/Rectal USE) PO SCH ×3 (00:42→17:35)
--- NOTE | 2018-01-21 01:36 | PN ---
DATE: 01/20/2018 CRITICAL CARE PROGRESS NOTE LOCATIONS: The patient in ICU, bed 435. Time spent 35 minutes. SUBJECTIVE: The patient is seen and examined at the bedside. This is a 77-year-old female with liver cirrhosis, massive ascites and end-stage renal disease, on hemodialysis. Overnight, unable to finish hemodialysis. Yesterday, I was asked to have it terminated early, remained normotensive, afebrile. Telemetry sinus rhythm. PHYSICAL EXAMINATION: GENERAL: This morning alert and awake, follows commands appropriate. Complaining of lack of bowel movement, abdominal discomfort. VITAL SIGNS: Temperature 97.4, heart rate of 70 and regular, blood pressure 104/42, mean arterial pressure 62, respiratory rate 22, thoracoabdominal, saturation 100% on oxygen 2 liters nasal cannula. Intake 920, output 1100, negative balance 180. Weight of 121 pounds. HEAD, EYES, EARS, NOSE AND THROAT: Pupils are reactive. Conjunctivae pale. Sclerae anicteric. CHEST: Bilateral breath sounds. Fine crepitations at the bases. No audible rhonchi or wheeze. HEART: Rhythm regular. S1, S2 normal. ABDOMEN: Bowel sounds present. Soft. EXTREMITIES: No pedal edema. NEUROLOGIC: Alert, awake, oriented x3. No cranial nerve deficit. No motor or sensory impairment. SKIN: With dry, pale, warm to touch. CURRENT MEDICATIONS: Tylenol 650 q. 6 hours p.r.n., Sensipar 30 mg p.o. daily, Lanoxin 0.25 mg three times a week, Colace 100 mg p.o. twice daily, Procrit 8000 units Monday, Monday, and Monday with dialysis, Mucinex 1 tablet twice daily, lactulose 20 g p.o. b.i.d. p.r.n., Lopressor 25 mg p.o. daily, midodrine 10 mg p.o. q. 8 hours., Zofran formula IV q. 6 hours p.r.n., Protonix 40 IV b.i.d., prednisone 2.5 mg p.o., Renagel 80 mg p.o. three times daily, Timoptic 0.5% of ophthalmic solution 1 drop daily and vancomycin 2 mg p.o. q. 8 hours. LABORATORY DATA: WBC is 9.6, hemoglobin is 9.2, hematocrit is 27.8, platelet count is 149. PT 17.4, INR is 1.6. SMA-7: Sodium is 138, potassium is 3.8, chloride is 93, CO2 is 27, blood urea nitrogen is 44, creatinine is 2.7, random glucose is 91, calcium is 7.3, total protein is 5.5, albumin is 2.9, albumin-globulin ratio 1.1. Digoxin is 1.8. Serology: C. Diff antigen A positive. Blood culture no growth or body fluid, no growth. IMPRESSION: Neuro: Alert and awake, follows commands appropriate. No obvious encephalopathy from the liver cirrhosis or renal failure. Pulmonary: Stable, on oxygen supplement. Cardiac. Normotensive. No cardiac arrhythmia. Renal: End-stage renal disease, on dialysis three times a week. Continue Renagel, Procrit. Anemia: Chronic disease. Gastrointestinal: Clostridium difficile colitis, on vancomycin p.o. No endocrine abnormalities... Continue deep venous thrombosis prophylaxis. Corey Espinosa MD MTDD
[2018-01-21 06:46] LABS: HEMOGLOBIN 9.7 g/dL (12.0-16.0); MEAN CELL VOLUME 96.2 fl (81.0-99.0); MEAN CORPUSCULAR HEMOGLOBIN 31.9 pg (27.0-31.0); MEAN CORPUSCULAR HGB CONC 33.2 g/dL (33.0-37.0); RBC 3.05 Mil/uL (3.80-5.20); RED CELL DISTRIBUTION WIDTH 15.7 % (11.5-14.5); WHITE BLOOD COUNT 9.1 K/uL (4.8-10.8)
--- NOTE | 2018-01-21 07:19 | CP.PCM.PN ---
Subjective - Date & Time of Evaluation Date of Evaluation: 01/21/18 Time of Evaluation: 08:00 - Subjective Subjective: Patient seen and examined bedside. Still with abdominal distention and discomfort.Had 2 BM overnight soft No more episodes of nausea or vomiting. Tolerating diet BP on the lower [id number] HR 70 afebrile saturating 99 % on 2 L O2 via NC Unable to sleep well overnight. Objective - Vital Signs/Intake and Output Vital Signs (last 24 hours): Temp Pulse Resp BP Pulse Ox 97.6 F 70 14 103/49 L 100 01/21/18 04:00 01/21/18 06:00 01/21/18 06:00 01/21/18 06:00 01/21/18 06:00 - Medications Medications: Current Medications Acetaminophen (Tylenol 325mg Tab) 650 mg PO Q6 PRN PRN Reason: moderate pain level 4-7 Last Admin: 01/20/18 18:41 Dose: 650 mg Cinacalcet (Sensipar) 30 mg PO DAILY [facility] Last Admin: 01/20/18 09:15 Dose: 30 mg Digoxin (Lanoxin) 0.25 mg PO MWF [facility] Last Admin: 01/19/18 08:54 Dose: 0.25 mg Docusate Sodium (Colace) 100 mg PO BID [facility] Last Admin: 01/20/18 17:07 Dose: Not Given Epoetin Blade (Procrit) 8,000 unit IV [facility] [place] Guaifenesin/Dextromethorphan (Mucinex-Dm 600-30 Mg) 1 tab PO BID [facility] Last Admin: 01/20/18 17:06 Dose: 1 tab Home Med (Patient's Own Medication) 1 unit PO DAILY [facility] Last Admin: 01/20/18 09:14 Dose: 1 unit Lactulose (Enulose) 20 gm PO BID PRN PRN Reason: Constipation Last Admin: 01/13/18 13:19 Dose: 20 gm Metoprolol Tartrate (Lopressor) 25 mg PO DAILY [facility] Last Admin: 01/10/18 09:12 Dose: Not Given Midodrine (Proamatine) 10 mg PO Q8 [facility] Last Admin: 01/21/18 00:42 Dose: 10 mg Multivitamins/Minerals (Therapeutic-M Tab) 1 tab PO DAILY [facility] Last Admin: 01/20/18 09:15 Dose: 1 tab Ondansetron HCl (Zofran Inj) 4 mg IVP Q6 PRN PRN Reason: Nausea/Vomiting Ondansetron HCl (Zofran Odt) 4 mg PO DAILY [facility] Last Admin: 01/20/18 09:27 Dose: 4 mg Ondansetron HCl (Zofran Odt) 4 mg PO Q8H PRN PRN Reason: Nausea/Vomiting Last Admin: 01/13/18 10:38 Dose: 4 mg Pantoprazole Sodium (Protonix Inj) 40 mg IVP BID [facility] Last Admin: 01/20/18 17:06 Dose: 40 mg Prednisone (Prednisone Tab) 2.5 mg PO MOFR [facility] Last Admin: 01/19/18 17:15 Dose: 2.5 mg Prochlorperazine (Compazine) 10 mg IVP Q8 PRN PRN Reason: Nausea/Vomiting Last Admin: 01/20/18 09:09 Dose: 10 mg Sevelamer HCl (Renagel) 800 mg PO TID [facility] Last Admin: 01/20/18 17:08 Dose: Not Given Timolol Maleate (Timoptic 0.5% Oph Soln) 1 drop OU DAILY [facility] Last Admin: 01/20/18 09:16 Dose: 1 drop Vancomycin HCl (Vancocin (Oral/Rectal Use)) 250 mg PO Q8 [facility] PRN Reason: Protocol Last Admin: 01/21/18 00:42 Dose: 250 mg - Labs Labs: 01/21/18 06:00 01/20/18 04:45 PT 17.4 Seconds (9.8-13.1) H 01/20/18 04:45 INR 1.6 (0.9-1.2) H 01/20/18 04:45 APTT 33.7 Seconds (25.6-37.1) 01/19/18 04:20 - Constitutional Appears: No Acute Distress, Chronically Ill - Head Exam Head Exam: ATRAUMATIC, NORMAL INSPECTION, NORMOCEPHALIC - Eye Exam Eye Exam: EOMI, Normal appearance, PERRL Pupil Exam: NORMAL ACCOMODATION - ENT Exam ENT Exam: Mucous Membranes Moist, Normal Exam - Neck Exam Neck Exam: Full ROM, Normal Inspection - Respiratory Exam Respiratory Exam: Decreased Breath Sounds (bibasilar), NORMAL BREATHING PATTERN. absent: Rhonchi, Wheezes, Respiratory Distress - Cardiovascular Exam Cardiovascular Exam: Irregular Rhythm, RRR, +S1, +S2. absent: JVD - GI/Abdominal Exam GI & Abdominal Exam: Distended (ascites ). absent: Guarding, Tenderness, Rebound - Rectal Exam Rectal Exam: Deferred - Extremities Exam Extremities Exam: Full ROM, Normal Capillary Refill, Normal Inspection. absent : Pedal Edema - Back Exam Back Exam: NORMAL INSPECTION - Neurological Exam Neurological Exam: Alert, Awake, CN II-XII Intact, Oriented x3 - Psychiatric Exam Psychiatric exam: Flat Affect - Skin Skin Exam: Dry, Pallor, Warm Assessment and Plan - Assessment and Plan (Free Text) Assessment: 77 y/o lady with Hx of ESRD on HD, Cirrhosis with ascites requiring at least 2x per month Paracentesis, was brought in because of abdominal pain. Patient missed her dialysis because of the pain. In the ED - patient was noted to be slightly hypotensive with BP in the 80 systolic and her Lactate was elevated at 2.4 - she was then admitted to ICU and started on Levophed. CT of the abdomen showed 1. Cirrhosis of liver, large abdominal and pelvic ascites. 2. Small loculated right pleural effusion with pleural calcifications. 3. Stable noncalcified nodules in the right lower lobe, the largest measures 8 mm. In a low risk patient follow-up in 12 month interval and in a high-risk patient follow-up in six-month interval is recommended to assess stability 4. Cholelithiasis. 5. Polycystic kidneys. Her stool work up reported positive for C.diff and she was started on Vanco Po. Received IV albumin and HD.Eliquis kept on hold in preparation for abdominal parasenthesis. Due to elevated INR up to 3.4 abdominal parasenthesis was not performed given the high risk for bleeding . FFP and Vitamin K given to correct coagulopathy. During this hospital stay she developed multiple coffee ground episodes of vomiting so NGT was placed , started Protonix BID, GI consulted and was transfused with PRBC due to acute blood loss anemia, At present no more bleeding episodes . NGT removed and tolerating direct . Family opted against EGD At present still with significant ascites , but no respiratory distress INR 1.6 guarded prognosis 1. Anemia of acute blood loss secondary to upper GI bleed on chronic anemia of kidney disease Hgb dropped to 6.4 , Hgb now 9.2 post transfusion of 2 units PRBC No more episodes of GI bleed NGT removed and tolerating diet Continue Protonix BID GI on board. Family opted against EGD for now Zofran for nausea 2. Coagulopathy Most likely secondary to liver cirrhosis Transfused 6 unit FFP , given Vitamin K INR 1.6 Will give 10 mg Vitamin K IV today waiting for coagulopathy correction for parasenthesis Check PT/INR in AM 3. ESRD on HD with Hyperkalemia secondary to missed HD on admission Nephrology following pt cont TIW HD cont Renagel Had HD 01/19 and asked to terminate it early.Only 1 L fluid was removed 4 Abdominal pain sec to Ascites and C . diff colitis SBP ruled out last Paracentesis done by IR on 01/10 showed no SBP paracentesis on hold due to coagulopathy Given Vitamin K and FFP Hold Eliquis on Vanco PO for C.diff will give Vitamin K today 5. C. Diff colitis Stool positive for Toxin and Ag on Vanco PO ID on Consult Had 4 soft BM after dulcolax given 6.Orthostatic Hypotension pt has low baseline BP and is on Midodrine at home Increased Midodrine to 10 mg TID Called her silk screen repairer Dr. Bui Continue Albumin IV PRN 7. Chronic A Fib rate controlled on digoxin Eliquis on hold for procedure 8. 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 DVT prophylaxis SCD Eliquis on hold
[2018-01-21] MEDS ORDERED: Phytonadione 10 mg/ml Inj (Adult) IV ONE (07:34)
[2018-01-21 08:04] LABS: CALCIUM 7.3 mg/dL (8.4-10.2)
[2018-01-21] MEDS ORDERED: Phytonadione 10 MG in Sodium Chloride 0.9% 50 ML IV ONE (08:45)
[2018-01-21] MEDS: ESOMEPRAZOLE PO SCH (08:59)
[2018-01-21] MEDS: guaiFENesin-DM 600-30 mg ER Tab PO SCH ×2 (09:01→17:35)
[2018-01-21] MEDS: Multivitamin With Minerals Tab PO SCH (09:02)
[2018-01-21] MEDS ORDERED: Sterile Water 10 ML IV ONE (10:11)
--- NOTE | 2018-01-21 13:18 | CP.PCM.PN ---
Subjective - Date & Time of Evaluation Date of Evaluation: 01/21/18 Time of Evaluation: 13:14 - Subjective Subjective: Nephrology Consultation: Assessment: stable Ascites, missed HD with Hyperkalemia: now improved End stage renal disease on hemodialysis (MWF) via AVF with missed HD. Anemia, Hyperphosphatemia, Secondary hyperparathyroidism Plan: pt had HD monday,Continue with Nephrovite 1 tab/day. no acute need for HD today , likely will plan for next HD monday consider AVF eval with vascular surgery or IR once she is stable from other active medical issues PRBC as needed for anemia. added OSCAR with HD as last Hb 9.7 Continue with phos binders, last phos level 4.6 Patient not on RAAS tashi as BP low pt also on sensipar. corrected Ca level 8.1, hence can continue for now Glycemic control, Dialysis consistent diet Further work up/management as per primary team Dose meds/antibiotics (if needed) for ESRD status. Avoid fleets enema/magnesium based laxatives. Thanks for allowing me to participate in care of your patient. Will follow patient with you. Please call if any Qs. d/w daughter and ICU team Dr Jas Hughes Office: [phone] ROS: denies CP/SOB/nausea. rest all other neg except pain abdomen. daughter also reports Rt forearm swelling which is better now Physical Examination: General Appearance: uncomfortable, in no acute respiratory distress, co- operative . ill appearing Vitals reviewed and noted as below Head; Atraumatic, normocephalic ENT: no ulcers no thrush. Tongue is midline. Oropharynx: no rash or ulcers. EYES: Pupils are equal, round and reactive to light accommodation. Eye muscles and extraocular movement intact. Sclera is anicteric. Neck; supple no lymphadenopathy, no thyromegaly or bruit Lungs: Normal respiratory rate/effort. Breath sounds bilateral equal and with few basal crackles Heart: Normal rate. s1s2 normal. No rub or gallop. Extremities: no edema. No varicose veins Neurological: Patient is alert, awake and oriented. No focal deficit. Strength bilateral appropriate and equal Skin: Warm and dry. Normal turgor. No rash. Palpitation: Normal elasticity for age Abdomen: Abdomen is soft. Bowel sounds +. There is mild abdominal tenderness, no guarding/rigidity or organomegaly. distended with ascitic Psych: limited insight and has normal affect MSK: no joint tenderness or swelling. Digits and nails normal, no deformity : kidney or bladder not palpable Access: AVF. some swelling around Rt Elbow Labs/imaging reviewed. Past medical history, past surgical history, family history, social history, allergy reviewed and noted as below Objective - Vital Signs/Intake and Output Vital Signs (last 24 hours): Temp Pulse Resp BP Pulse Ox 97.4 F L 70 14 118/53 L 100 01/21/18 12:00 01/21/18 12:00 01/21/18 12:00 01/21/18 12:00 01/21/18 12:00 Intake and Output: 01/21/18 01/21/18 06:59 18:59 Intake Total 58 Balance 58 - Medications Medications: Current Medications Acetaminophen (Tylenol 325mg Tab) 650 mg PO Q6 PRN PRN Reason: moderate pain level 4-7 Last Admin: 01/20/18 18:41 Dose: 650 mg Cinacalcet (Sensipar) 30 mg PO DAILY [facility] Last Admin: 01/21/18 09:02 Dose: 30 mg Digoxin (Lanoxin) 0.25 mg PO MWF [facility] Last Admin: 01/19/18 08:54 Dose: 0.25 mg Docusate Sodium (Colace) 100 mg PO BID [facility] Last Admin: 01/21/18 09:01 Dose: 100 mg Epoetin Blade (Procrit) 8,000 unit IV [facility] [place] Guaifenesin/Dextromethorphan (Mucinex-Dm 600-30 Mg) 1 tab PO BID [facility] Last Admin: 01/21/18 09:01 Dose: 1 tab Home Med (Patient's Own Medication) 1 unit PO DAILY [facility] Last Admin: 01/21/18 08:59 Dose: 1 unit Lactulose (Enulose) 20 gm PO BID PRN PRN Reason: Constipation Last Admin: 01/13/18 13:19 Dose: 20 gm Metoprolol Tartrate (Lopressor) 25 mg PO DAILY [facility] Last Admin: 01/10/18 09:12 Dose: Not Given Midodrine (Proamatine) 10 mg PO Q8 [facility] Last Admin: 01/21/18 09:00 Dose: 10 mg Multivitamins/Minerals (Therapeutic-M Tab) 1 tab PO DAILY [facility] Last Admin: 01/21/18 09:02 Dose: 1 tab Ondansetron HCl (Zofran Inj) 4 mg IVP Q6 PRN PRN Reason: Nausea/Vomiting Ondansetron HCl (Zofran Odt) 4 mg PO DAILY [facility] Last Admin: 01/21/18 09:00 Dose: 4 mg Ondansetron HCl (Zofran Odt) 4 mg PO Q8H PRN PRN Reason: Nausea/Vomiting Last Admin: 01/13/18 10:38 Dose: 4 mg Pantoprazole Sodium (Protonix Inj) 40 mg IVP BID [facility] Last Admin: 01/21/18 09:02 Dose: 40 mg Prednisone (Prednisone Tab) 2.5 mg PO MOFR [facility] Last Admin: 01/19/18 17:15 Dose: 2.5 mg Prochlorperazine (Compazine) 10 mg IVP Q8 PRN PRN Reason: Nausea/Vomiting Last Admin: 01/20/18 09:09 Dose: 10 mg Sevelamer HCl (Renagel) 800 mg PO TID [facility] Last Admin: 01/21/18 09:00 Dose: 800 mg Timolol Maleate (Timoptic 0.5% [facility] Soln) 1 drop OU DAILY [facility] Last Admin: 01/21/18 09:03 Dose: 1 drop Vancomycin HCl (Vancocin (Oral/Rectal Use)) 250 mg PO Q8 [facility] PRN Reason: Protocol Last Admin: 01/21/18 09:04 Dose: 250 mg - Labs Labs: 01/21/18 06:00 01/21/18 06:00 PT 17.4 Seconds (9.8-13.1) H 01/20/18 04:45 INR 1.6 (0.9-1.2) H 01/20/18 04:45 APTT 33.7 Seconds (25.6-37.1) 01/19/18 04:20
--- NOTE | 2018-01-21 13:25 | PN ---
DATE: 01/21/2018 CRITICAL CARE PROGRESS NOTE SUBJECTIVE: The patient in room ICU, bed 435. Time spent 35 minutes. The patient is seen and examined at the bedside. Past medical, surgical, and social history reviewed. A 77-year-old female with liver cirrhosis, massive ascites, end-stage renal disease on hemodialysis, and status post C. diff colitis admitted with anemia and noted to be coagulopathic, status post recurrent paracentesis. OBJECTIVE: GENERAL: Remains alert, awake, able to follow commands. No distress noted. VITAL SIGNS: Temperature 97.5, heart rate 70, blood pressure 91/45, respiratory rate of 17, saturations 99% on oxygen 3 liters nasal cannula. INTAKE AND OUTPUT: Intake 920, output 1100, negative balance 180. Weight 128 pounds. HEENT: Pupils are reactive. Conjunctivae pale. CHEST: Bilateral breath sounds. Fine crepitations at the bases. No audible rhonchi or wheeze. HEART: Rhythm regular. S1 and S2 normal. ABDOMEN: Bowel sounds present. Soft. EXTREMITIES: No pedal edema. NEUROLOGIC: Alert, awake, follows commands appropriate. SKIN: Dry, pale, warm to touch. CURRENT MEDICATIONS: Tylenol 650 every 6 hours p.r.n., Sensipar 30 mg p.o. daily, Lanoxin 0.25 mg 3 times a week, Colace 100 mg twice daily, Procrit 8000 Units 3 times a week, lactulose _ p.o. b.i.d., Lopressor 25 mg p.o. daily, midodrine 10 mg p.o. every 8 hours, Zofran 4 mg IV every 6 hours p.r.n., Protonix 40 b.i.d., prednisone 2.5 mg p.o. daily, Renagel 800_ mg p.o. 3 times daily, Timoptic eye drops 0.5% one drop daily, and vancomycin 125 mg p.o. every 8 hours. LABORATORY DATA: WBC 9.1, hemoglobin 9.7, hematocrit 29.3, and platelet count of 140,000. PT 17.4 and INR 1.6. SMA-7; sodium 139, potassium 4, chloride 91, CO2 29, blood urea nitrogen 62, creatinine 3.7, random glucose 85, and calcium 7.3. Peritoneal fluid clear; WBC 47, RBC 20, total cell count 100, neutrophils 55, lymphocytes 20, and monocytes 25. Stool occult blood positive. Blood culture; no growth reported. Body fluid, no growth. IMPRESSION AND PLAN: 1. Neuro: Alert and awake, follows commands appropriate, no obvious encephalopathy from liver cirrhosis or renal failure. 2. Pulmonary: Stable on oxygen supplement. 3. Cardiac: Normotensive. No cardiac arrhythmias. 4. Renal: End-stage renal disease on hemodialysis 3 times a week. Continue Renagel and Procrit. 5. Anemia of chronic disease, superimposed with gastrointestinal bleeding, probably related to gastritis, infection, Clostridium difficile colitis, on oral vancomycin. 6. No endocrine abnormalities. 7. Continue DVT prophylaxis with mechanical device. Given vitamin K at 10 mg for possible paracentesis. Corey Espinosa MD MTDD
--- NOTE | 2018-01-21 16:54 | CP.PCM.CON ---
History of Present Illness - History of Present Illness History of Present Illness: CC: Hypotension. HPI: I have been requested on cardiology consultation by Dr. Olmedo on Mrs. Velasquez who is a 77 year old female with a PMH of HTN, Afib, ESRD on HD and ascites who is accompanied by her family and presents to [facility] with generalized weakness and worsening ascites associated with abdominal pain and nausea for one day prior to admission due to missed hemodialysis. She denies chest pain, dyspnea, orthopnea, fever or chills but continues to have lower quadrant abdominal pain and discomfort as well as several days of constipation. The patient was hypotensive, admitted to the ICU and started on pressors which have now been discontinued. A chest Xray revealed mild CHF, CT of the abdomen and pelvis revealed cirrhosis, ascites, cholelithiasis, and pulmonary nodule. An ECG reveals atrial fibrillation with septal MS, age indeterminate and an ECHO revealed moderate LVH, normal LV systolic function, moderate AI, severe TR and pulmonary hypertension. Review of Systems - Constitutional Constitutional: Fatigue, Lethargy, Malaise, Weakness - EENT Eyes: absent: Blurred Vision, Loss of Vision Ears: absent: Ear Pain Nose/Mouth/Throat: absent: Nasal Congestion, Neck Pain - Cardiovascular Cardiovascular: absent: Chest Pain, Diaphoresis, Dyspnea, Edema, Palpitations, Syncope - Respiratory Respiratory: absent: Cough, Dyspnea, Hemoptysis, Wheezing, Excessive Mucous Production - Gastrointestinal Gastrointestinal: Abdominal Pain, Constipation, Cramping. absent: Dyspepsia, Dysphagia, Melena - Musculoskeletal Musculoskeletal: Back Pain, Muscle Weakness, Myalgias. absent: Radiating Pain into Limb - Integumentary Integumentary: absent: Lesions, Pruritus, Rash - Neurological Neurological: Weakness. absent: Dizziness, Focal Weakness, Headaches, Syncope, Vertigo - Psychiatric Psychiatric: Anxiety - Endocrine Endocrine: Fatigue - Hematologic/Lymphatic Hematologic: absent: Easy Bleeding Past Patient History - Infectious Disease Hx of Infectious Diseases: None - Tetanus Immunizations Tetanus Immunization: Unknown - Past Medical History & Family History Past Medical History?: Yes - Past Social History Smoking Status: Never Smoked Alcohol: None Drugs: Denies Home Situation {Lives}: With Family - CARDIAC Hx Atrial Fibrillation: Yes Hx Hypertension: Yes - PULMONARY Hx Pneumonia: Yes - NEUROLOGICAL Hx Neurological Disorder: No - HEENT Hx Glaucoma: Yes - RENAL Hx Chronic Kidney Disease: Yes Hx Dialysis: Yes - ENDOCRINE/METABOLIC Hx Endocrine Disorders: No - HEMATOLOGICAL/ONCOLOGICAL Hx Anemia: Yes Hx Cirrhosis: Yes - INTEGUMENTARY Hx Dermatological Problems: No - MUSCULOSKELETAL/RHEUMATOLOGICAL Hx Arthritis: Yes - GASTROINTESTINAL Hx Diverticulitis: Yes - GENITOURINARY/GYNECOLOGICAL Hx Genitourinary Disorders: No - PSYCHIATRIC Hx Anxiety: Yes - SURGICAL HISTORY Hx Surgeries: Yes Other/Comment: PARACENTESIS SERIES. Hip replacement - ANESTHESIA Hx Anesthesia: Yes Hx Anesthesia Reactions: Yes (HARD TO WAKE UP) Hx Malignant Hyperthermia: No Meds Allergies/Adverse Reactions: Allergies Allergy/AdvReac Type Severity Reaction Status Date / Time Penicillins Allergy RASH Verified 01/09/18 01:48 morphine AdvReac HEADACHE Verified 01/09/18 01:48 mayonnaise AdvReac VOMITING Uncoded 01/09/18 01:48 - Medications Medications: Current Medications Acetaminophen (Tylenol 325mg Tab) 650 mg PO Q6 PRN PRN Reason: moderate pain level 4-7 Last Admin: 01/20/18 18:41 Dose: 650 mg Cinacalcet (Sensipar) 30 mg PO DAILY [facility] Last Admin: 01/21/18 09:02 Dose: 30 mg Digoxin (Lanoxin) 0.25 mg PO MWF [facility] Last Admin: 01/19/18 08:54 Dose: 0.25 mg Docusate Sodium (Colace) 100 mg PO BID [facility] Last Admin: 01/21/18 09:01 Dose: 100 mg Epoetin Blade (Procrit) 8,000 [place] [facility] [place] Guaifenesin/Dextromethorphan (Mucinex-Dm 600-30 Mg) 1 tab PO BID [facility] Last Admin: 01/21/18 09:01 Dose: 1 tab Home Med (Patient's Own Medication) 1 unit PO DAILY [facility] Last Admin: 01/21/18 08:59 Dose: 1 unit Lactulose (Enulose) 20 gm PO BID PRN PRN Reason: Constipation Last Admin: 01/13/18 13:19 Dose: 20 gm Metoprolol Tartrate (Lopressor) 25 mg PO DAILY [facility] Last Admin: 01/10/18 09:12 Dose: Not Given Midodrine (Proamatine) 10 mg PO Q8 [facility] Last Admin: 01/21/18 09:00 Dose: 10 mg Multivitamins/Minerals (Therapeutic-M Tab) 1 tab PO DAILY [facility] Last Admin: 01/21/18 09:02 Dose: 1 tab Ondansetron HCl (Zofran Inj) 4 mg IVP Q6 PRN PRN Reason: Nausea/Vomiting Ondansetron HCl (Zofran Odt) 4 mg PO DAILY [facility] Last Admin: 01/21/18 09:00 Dose: 4 mg Ondansetron HCl (Zofran Odt) 4 mg PO Q8H PRN PRN Reason: Nausea/Vomiting Last Admin: 01/13/18 10:38 Dose: 4 mg Pantoprazole Sodium (Protonix Inj) 40 mg IVP BID [facility] Last Admin: 01/21/18 09:02 Dose: 40 mg Prednisone (Prednisone Tab) 2.5 mg PO MOFR [facility] Last Admin: 01/19/18 17:15 Dose: 2.5 mg Prochlorperazine (Compazine) 10 mg IVP Q8 PRN PRN Reason: Nausea/Vomiting Last Admin: 01/20/18 09:09 Dose: 10 mg Sevelamer HCl (Renagel) 800 mg PO TID [facility] Last Admin: 01/21/18 13:47 Dose: 800 mg Timolol Maleate (Timoptic 0.5% Ophth Soln) 1 drop OU DAILY [facility] Last Admin: 01/21/18 09:03 Dose: 1 drop Vancomycin HCl (Vancocin (Oral/Rectal Use)) 250 mg PO Q8 [facility] PRN Reason: Protocol Last Admin: 01/21/18 09:04 Dose: 250 mg Physical Exam - Constitutional Appears: Well, Chronically Ill Additional comments: Mild distress due to abdominal pain. - Head Exam Head Exam: ATRAUMATIC, NORMAL INSPECTION, NORMOCEPHALIC - Eye Exam Eye Exam: Normal appearance, PERRL. absent: Periorbital swelling, Scleral icterus Pupil Exam: NORMAL ACCOMODATION, PERRL - ENT Exam ENT Exam: Mucous Membranes Moist, Normal Exam, Normal External Ear Exam - Neck Exam Neck exam: Positive for: Full Rom, Normal Inspection - Respiratory Exam Respiratory Exam: Clear to Auscultation Bilateral, NORMAL BREATHING PATTERN. absent: Chest Wall Tenderness, Rales, Rhonchi, Wheezes - Cardiovascular Exam Cardiovascular Exam: Irregular Rhythm, JVD, +S1, +S2, Systolic Murmur - GI/Abdominal Exam GI & Abdominal Exam: Distended, Guarding, Rebound, Tenderness Additional comments: Ascites. - Rectal Exam Rectal Exam: Deferred - Extremities Exam Extremities exam: Positive for: normal inspection, pedal pulses present. Negative for: pedal edema, tenderness - Back Exam Back exam: NORMAL INSPECTION. absent: CVA tenderness (L), CVA tenderness (R) - Neurological Exam Neurological exam: Alert, Oriented x3 - Psychiatric Exam Psychiatric exam: Anxious - Skin Skin Exam: Dry, Intact, Normal Color, Warm Results - Vital Signs Recent Vital Signs: Last Vital Signs Temp 97.4 F L 01/21/18 12:00 Pulse 70 01/21/18 12:00 Resp 14 01/21/18 12:00 BP 118/53 L 01/21/18 12:00 Pulse Ox 100 01/21/18 12:00 - Labs Result Diagrams: 01/21/18 06:00 01/21/18 06:00 Labs: Laboratory Results - last 24 hr 01/20/18 01/21/18 01/21/18 19:39 02:50 06:00 WBC 9.1 RBC 3.05 L Hgb 9.7 L Hct 29.3 L MCV 96.2 MCH 31.9 H MCHC 33.2 RDW 15.7 H Plt Count 140 Sodium Potassium Chloride Carbon Dioxide Anion Gap BUN Creatinine Est GFR ( Amer) Est GFR (Non-Af Amer) POC Glucose (mg/dL) 125 H Random Glucose Calcium Stool Occult Blood Positive H 01/21/18 06:00 WBC RBC Hgb Hct MCV MCH MCHC RDW Plt Count Sodium 139 Potassium 4.0 Chloride 91 L Carbon Dioxide 29 Anion Gap 23 H BUN 62 H Creatinine 3.7 H Est GFR ( Amer) 14 Est GFR (Non-Af Amer) 12 POC Glucose (mg/dL) Random Glucose 85 Calcium 7.3 L Stool Occult Blood Assessment & Plan - Assessment and Plan (Free Text) Assessment: Ascites, recurrent. Abdominal pain. ESRD on HD. Atrial fibrillation. Hypotension, resolved. Sepsis. Plan: Antibiotics. Continue HD. Continue midodrine. Continue current cardiac meds. GI follow up. Will follow up PRN. - Date & Time Date: 01/20/18 Time: 14:30
[2018-01-22] MEDS ORDERED: Sterile Water 10 ML IV ONE (00:20)
[2018-01-22] MEDS: Vancomycin 500 mg (Oral/Rectal USE) PO SCH ×3 (00:26→16:37)
[2018-01-22 05:30] LABS: HEMOGLOBIN 9.5 g/dL (12.0-16.0); MEAN CELL VOLUME 96.8 fl (81.0-99.0); MEAN CORPUSCULAR HEMOGLOBIN 31.8 pg (27.0-31.0); MEAN CORPUSCULAR HGB CONC 32.9 g/dL (33.0-37.0); RBC 2.98 Mil/uL (3.80-5.20); RED CELL DISTRIBUTION WIDTH 15.8 % (11.5-14.5); WHITE BLOOD COUNT 8.8 K/uL (4.8-10.8)
[2018-01-22 05:32] LABS: INR 1.4 (0.9-1.2); PROTHROMBIN TIME 15.9 Seconds (9.8-13.1)
[2018-01-22 05:54] LABS: ALB/GLOB RATIO 1.1 (1.0-2.1); ALBUMIN 3.2 g/dL (3.5-5.0); CALCIUM 7.3 mg/dL (8.4-10.2)
--- NOTE | 2018-01-22 07:43 | CP.CCUPN ---
CCU Subjective - Physician Review Events Since Last Encounter (Free Text): 01/23/18 16:01 The patient was Seen/interviewed and examined by me at the bedside during ICU round, Medical records reviewed and Management issues were discussed and formulated with the house staff. Events reviewed Alert and oriented, daughter is at bed side. Denies any chest pain, SOB or Palpitations Clinically improving, off levophed, BP has been stable. Resp nonlabored, 96-98% saturation @ 2L via nasal cannula. Scheduled for Paracentesis today then HD CCU Objective - Vital Signs / Intake & Output Vital Signs (Last 4 hours): Vital Signs Pulse Resp BP Pulse Ox 01/22/18 06:00 70 17 116/49 L 100 01/22/18 04:00 70 13 117/51 L 100 Intake and Output (Last 8hrs): Intake & Output 01/21/18 01/22/18 01/22/18 22:59 06:59 14:59 Intake Total 14 202 Balance 14 202 Weight 111 lb 11.2 oz Intake: IV 14 22 Oral 180 Other: # Bowel Movements 1 1 - Physical Exam Head: Positive for: Atraumatic, Normocephalic Pupils: Positive for: PERRL Extroacular Muscles: Positive for: EOMI Conjunctiva: Positive for: Normal Ears: Positive for: Normal Mouth: Positive for: Moist Mucous Membranes Neck: Positive for: Normal Range of Motion Respiratory/Chest: Positive for: Clear to Auscultation Cardiovascular: Positive for: Regular Rate and Rhythm Abdomen: Positive for: Distention, Other (tense). Negative for: Tenderness Neurological: Positive for: GCS=15, CN II-XII Intact Psychiatric: Positive for: Alert, Oriented x 3 - Medications Active Medications: Active Medications Generic Name Dose Route Start Last Admin Trade Name Freq PRN Reason Stop Dose Admin Acetaminophen 650 mg 01/09/18 17:10 01/20/18 18:41 Tylenol 325mg Tab PO 650 mg Q6 PRN Administration moderate pain level 4-7 Cinacalcet 30 mg 01/09/18 09:00 01/21/18 09:02 Sensipar PO 30 mg DAILY [facility] Administration Digoxin 0.25 mg 01/10/18 09:00 01/19/18 08:54 Lanoxin PO 0.25 mg MWF [facility] Administration Docusate Sodium 100 mg 01/12/18 13:00 01/21/18 17:34 Colace PO 100 mg BID [facility] Administration Epoetin Blade 8,000 unit 01/22/18 09:00 Procrit IV MWF [facility] Guaifenesin/Dextromethorphan 1 tab 01/20/18 02:15 01/21/18 17:35 Mucinex-Dm 600-30 Mg PO 1 tab BID [facility] Administration Home Med 1 unit 01/17/18 09:00 01/21/18 08:59 Patient's Own Medication PO 1 unit DAILY [facility] Administration Lactulose 20 gm 01/13/18 09:32 01/13/18 13:19 Enulose PO 20 gm BID PRN Administration Constipation Metoprolol Tartrate 25 mg 01/09/18 09:00 01/10/18 09:12 Lopressor PO Not Given DAILY [facility] Midodrine 10 mg 01/10/18 09:00 01/22/18 00:26 Proamatine PO 10 mg Q8 [facility] Administration Multivitamins/Minerals 1 tab 01/09/18 09:00 01/21/18 09:02 Therapeutic-M Tab PO 1 tab DAILY [facility] Administration Ondansetron HCl 4 mg 01/09/18 06:13 Zofran Inj IVP Q6 PRN Nausea/Vomiting Ondansetron HCl 4 mg 01/10/18 09:00 01/21/18 09:00 Zofran Odt PO 4 mg DAILY [facility] Administration Ondansetron HCl 4 mg 01/11/18 17:44 01/13/18 10:38 Zofran Odt PO 4 mg Q8H PRN Administration Nausea/Vomiting Pantoprazole Sodium 40 mg 01/17/18 18:45 01/21/18 17:34 Protonix Inj IVP 40 mg BID [facility] Administration Prednisone 2.5 mg 01/19/18 17:00 01/19/18 17:15 Prednisone Tab PO 2.5 mg MOFR [facility] Administration Prochlorperazine 10 mg 01/14/18 14:36 01/22/18 06:24 Compazine IVP 10 mg Q8 PRN Administration Nausea/Vomiting Sevelamer HCl 800 mg 01/09/18 09:00 01/21/18 17:35 Renagel PO 800 mg TID [facility] Administration Timolol Maleate 1 drop 01/12/18 11:45 01/21/18 09:03 Timoptic 0.5% Ophth Soln OU 1 drop DAILY [facility] Administration Vancomycin HCl 250 mg 01/15/18 17:00 01/22/18 00:26 Vancocin (Oral/Rectal Use) PO 250 mg Q8 [facility] Administration Protocol - Patient Studies Lab Studies: Lab Studies 01/22/18 01/22/18 01/22/18 Range/Units 04:30 04:30 04:30 WBC 8.8 (4.8-10.8) K/uL RBC 2.98 L (3.80-5.20) Mil/uL Hgb 9.5 L (12.0-16.0) g/dL Hct 28.9 L (34.0-47.0) % MCV 96.8 (81.0-99.0) fl MCH 31.8 H (27.0-31.0) pg MCHC 32.9 L (33.0-37.0) g/dL RDW 15.8 H (11.5-14.5) % Plt Count 162 (130-400) K/uL PT 15.9 H (9.8-13.1) Seconds INR 1.4 H (0.9-1.2) Sodium 139 (132-148) mmol/l Potassium 4.4 (3.6-5.0) MMOL/L Chloride 93 L (98-107) mmol/L Carbon Dioxide 26 (22-30) mmol/L Anion Gap 24 H (10-20) BUN 74 H (7-17) mg/dl Creatinine 4.3 H (0.7-1.2) mg/dl Est GFR ( Amer) 12 Est GFR (Non-Af Amer) 10 Random Glucose 87 (65-105) mg/dL Calcium 7.3 L (8.4-10.2) mg/dL Total Bilirubin 1.5 H (0.2-1.3) mg/dl AST 21 (14-36) U/L ALT 30 (9-52) U/L Alkaline Phosphatase 114 (38-126) U/L Total Protein 6.1 L (6.3-8.2) G/DL Albumin 3.2 L (3.5-5.0) g/dL Globulin 2.8 (2.2-3.9) gm/dL Albumin/Globulin Ratio 1.1 (1.0-2.1) 01/21/18 Range/Units 06:00 WBC (4.8-10.8) K/uL RBC (3.80-5.20) Mil/uL Hgb (12.0-16.0) g/dL Hct (34.0-47.0) % MCV (81.0-99.0) fl MCH (27.0-31.0) pg MCHC (33.0-37.0) g/dL RDW (11.5-14.5) % Plt Count (130-400) K/uL PT (9.8-13.1) Seconds INR (0.9-1.2) Sodium 139 (132-148) mmol/l Potassium (3.6-5.0) MMOL/L Chloride 91 L (98-107) mmol/L Carbon Dioxide 29 (22-30) mmol/L Anion Gap 23 H (10-20) BUN 62 H (7-17) mg/dl Creatinine 3.7 H (0.7-1.2) mg/dl Est GFR ( Amer) 14 Est GFR (Non-Af Amer) 12 Random Glucose 85 (65-105) mg/dL Calcium 7.3 L (8.4-10.2) mg/dL Total Bilirubin (0.2-1.3) mg/dl AST (14-36) U/L ALT (9-52) U/L Alkaline Phosphatase (38-126) U/L Total Protein (6.3-8.2) G/DL Albumin (3.5-5.0) g/dL Globulin (2.2-3.9) gm/dL Albumin/Globulin Ratio (1.0-2.1) Laboratory Results - last 24 hr 01/21/18 01/22/18 01/22/18 06:00 04:30 04:30 WBC 8.8 RBC 2.98 L Hgb 9.5 L Hct 28.9 L MCV 96.8 MCH 31.8 H MCHC 32.9 L RDW 15.8 H Plt Count 162 PT 15.9 H INR 1.4 H Sodium 139 Potassium Chloride 91 L Carbon Dioxide 29 Anion Gap 23 H BUN 62 H Creatinine 3.7 H Est GFR ( Amer) 14 Est GFR (Non-Af Amer) 12 Random Glucose 85 Calcium 7.3 L Total Bilirubin AST ALT Alkaline Phosphatase Total Protein Albumin Globulin Albumin/Globulin Ratio 01/22/18 04:30 WBC RBC Hgb Hct MCV MCH MCHC RDW Plt Count PT INR Sodium 139 Potassium 4.4 Chloride 93 L Carbon Dioxide 26 Anion Gap 24 H BUN 74 H Creatinine 4.3 H Est GFR ( Amer) 12 Est GFR (Non-Af Amer) 10 Random Glucose 87 Calcium 7.3 L Total Bilirubin 1.5 H AST 21 ALT 30 Alkaline Phosphatase 114 Total Protein 6.1 L Albumin 3.2 L Globulin 2.8 Albumin/Globulin Ratio 1.1 Critical Care Progress Note - Nutrition Nutrition: Nutrition Category Date Time Status Renal Diet [DIET] Diets 01/18/18 Dinner Active Assessment/Plan (1) Ascites Current Visit: Yes Status: Acute Priority: High Comment: Secondary to portal hypertension Last parasenthesis 2 weeks ago low salt diet Scheduled for Repeat Paracentesis today (2) Orthostatic hypotension Current Visit: Yes Status: Acute Priority: High Comment: Continue Midodrine and Steroids 2.5 mg po daily Continue Albumin IV PRN (3) Abdominal pain Current Visit: Yes Status: Acute Priority: High Comment: Scheduled for Paracentesis today CT of the abdomen showed 1. Cirrhosis of liver, large abdominal and pelvic ascites. 2. Small loculated right pleural effusion with pleural calcifications. 3. Stable noncalcified nodules in the right lower lobe, the largest measures 8 mm. In a low risk patient follow-up in 12 month interval and in a high-risk patient follow-up in six-month interval is recommended to assess stability 4. Cholelithiasis. 5. Polycystic kidneys. (4) ESRD (end stage renal disease) on dialysis Current Visit: Yes Status: Acute Priority: High Comment: Continue Renagel, HD as per renal (5) Atrial fibrillation with controlled ventricular rate Current Visit: Yes Status: Acute Comment: Eliquis on hold for the paracentesis (6) Secondary hyperparathyroidism of renal origin Current Visit: No Status: Acute Comment: PTH 383 continue renagel
[2018-01-22] MEDS: ESOMEPRAZOLE PO SCH (08:13)
[2018-01-22] MEDS: Multivitamin With Minerals Tab PO SCH (08:14)
[2018-01-22] MEDS: guaiFENesin-DM 600-30 mg ER Tab PO SCH ×2 (08:14→16:36)
[2018-01-22] MEDS: Digoxin 250 mcg (0.25 mg) Tab PO SCH (08:15)
[2018-01-22 08:19] VITALS: PULSE 70
--- NOTE | 2018-01-22 08:58 | CP.PCM.PN ---
Subjective - Date & Time of Evaluation Date of Evaluation: 01/22/18 Time of Evaluation: 08:57 - Subjective Subjective: pt. in bed daughter at bed side vital signs stable no vomiting no diarrhea Objective - Vital Signs/Intake and Output Vital Signs (last 24 hours): Temp Pulse Resp BP Pulse Ox 97.7 F 70 14 103/44 L 100 01/22/18 08:00 01/22/18 08:00 01/22/18 08:00 01/22/18 08:00 01/22/18 08:00 Intake and Output: 01/22/18 01/22/18 06:59 18:59 Intake Total 208 50 Balance 208 50 - Medications Medications: Current Medications Acetaminophen (Tylenol 325mg Tab) 650 mg PO Q6 PRN PRN Reason: moderate pain level 4-7 Last Admin: 01/20/18 18:41 Dose: 650 mg Digoxin (Lanoxin) 0.25 mg PO MWF [facility] Last Admin: 01/22/18 08:15 Dose: 0.25 mg Docusate Sodium (Colace) 100 mg PO BID [facility] Last Admin: 01/22/18 08:15 Dose: 100 mg Epoetin Blade (Procrit) 8,000 unit [place] [facility] [place]ifenesin/Dextromethorphan (Mucinex-Dm 600-30 Mg) 1 tab PO BID [facility] Last Admin: 01/22/18 08:14 Dose: 1 tab Home Med (Patient's Own Medication) 1 unit PO DAILY [facility] Last Admin: 01/22/18 08:13 Dose: 1 unit Lactulose (Enulose) 20 gm PO BID PRN PRN Reason: Constipation Last Admin: 01/13/18 13:19 Dose: 20 gm Metoprolol Tartrate (Lopressor) 25 mg PO DAILY [facility] Last Admin: 01/10/18 09:12 Dose: Not Given Midodrine (Proamatine) 10 mg PO Q8 [facility] Last Admin: 01/22/18 08:16 Dose: 10 mg Multivitamins/Minerals (Therapeutic-M Tab) 1 tab PO DAILY [facility] Last Admin: 01/22/18 08:14 Dose: 1 tab Ondansetron HCl (Zofran Inj) 4 mg IVP Q6 PRN PRN Reason: Nausea/Vomiting Ondansetron HCl (Zofran Odt) 4 mg PO DAILY [facility] Last Admin: 01/21/18 09:00 Dose: 4 mg Ondansetron HCl (Zofran Odt) 4 mg PO Q8H PRN PRN Reason: Nausea/Vomiting Last Admin: 01/13/18 10:38 Dose: 4 mg Pantoprazole Sodium (Protonix Inj) 40 mg IVP BID [facility] Last Admin: 01/22/18 08:16 Dose: 40 mg Prednisone (Prednisone Tab) 2.5 mg PO MOFR [facility] Last Admin: 01/19/18 17:15 Dose: 2.5 mg Prochlorperazine (Compazine) 10 mg IVP Q8 PRN PRN Reason: Nausea/Vomiting Last Admin: 01/22/18 06:24 Dose: 10 mg Sevelamer HCl (Renagel) 800 mg PO TID [facility] Last Admin: 01/22/18 08:13 Dose: 800 mg Timolol Maleate (Timoptic 0.5% Ophth Soln) 1 drop OU DAILY [facility] Last Admin: 01/22/18 08:19 Dose: 1 drop Vancomycin HCl (Vancocin (Oral/Rectal Use)) 250 mg PO Q8 [facility] PRN Reason: Protocol Last Admin: 01/22/18 08:19 Dose: 250 mg - Labs Labs: 01/22/18 04:30 01/22/18 04:30 PT 15.9 Seconds (9.8-13.1) H 01/22/18 04:30 INR 1.4 (0.9-1.2) H 01/22/18 04:30 APTT 33.7 Seconds (25.6-37.1) 01/19/18 04:20 - Constitutional Appears: No Acute Distress - ENT Exam ENT Exam: Mucous Membranes Moist - Neck Exam Neck Exam: absent: Lymphadenopathy - Respiratory Exam Respiratory Exam: absent: Chest Wall Tenderness - Cardiovascular Exam Cardiovascular Exam: Irregular Rhythm. absent: Gallop, JVD, Rubs - GI/Abdominal Exam GI & Abdominal Exam: Distended, Soft, Normal Bowel Sounds - Extremities Exam Extremities Exam: absent: Calf Tenderness - Back Exam Back Exam: absent: CVA tenderness (L), CVA tenderness (R) - Neurological Exam Neurological Exam: Alert - Psychiatric Exam Psychiatric exam: Normal Affect - Skin Skin Exam: absent: Cyanosis Assessment and Plan (1) Abdominal pain Status: Acute (2) Ascites Status: Acute (3) ESRD (end stage renal disease) on dialysis Assessment & Plan: Waiting for HD to start shortly Albumin 25% ordered to be given on HD for hypotension. Paracentesis today and HD tomorrow. waiting for coagulopathy to be corrected. border line hypocalcemia,hold Sensipar till getting result of PTH. Anemia S/P transfusion, and on EPO #2 ascitis status post paracentesis previously #3 abdominal pain improving somewhat #4 chf history and volume overloaded. #5 H/O pericardial effusion, #6 hypotension #7 hypoalbuminemia patient need nutritional counseling with the dietitian. #8 history of hyperphosphatemia and secondary hyperparathyroidism #9 debility Status: Acute
[2018-01-22] MEDS ORDERED: Albumin Human 25% (12.5 gm/50 ml) IV SCH (10:00)
--- NOTE | 2018-01-22 10:49 | CP.PCM.PN ---
Subjective - Date & Time of Evaluation Date of Evaluation: 01/22/18 Time of Evaluation: 10:30 - Subjective Subjective: No fever has dark , soft stool still with abd pain Plan for Paracentesis today, Albumin given no CP no SOB Had long discussion with Pt and Daughter - Pt would now want to talk about her advance directives. [employer] notified to help pt with this . Pt verbalized wanting full treatment however does not want CPR nor intubation. Objective - Vital Signs/Intake and Output Vital Signs (last 24 hours): Temp Pulse Resp BP Pulse Ox 97.7 F 70 16 97/43 L 100 01/22/18 08:00 01/22/18 10:00 01/22/18 10:00 01/22/18 10:00 01/22/18 10:00 Intake and Output: 01/22/18 01/22/18 06:59 18:59 Intake Total 208 170 Balance 208 170 - Medications Medications: Current Medications Acetaminophen (Tylenol 325mg Tab) 650 mg PO Q6 PRN PRN Reason: moderate pain level 4-7 Last Admin: 01/20/18 18:41 Dose: 650 mg Albumin Human (Albumin Human 25% (12.5 Gm/50 Ml)) 12.5 gm IV ONCE [facility] Digoxin (Lanoxin) 0.25 mg PO MWF [facility] Last Admin: 01/22/18 08:15 Dose: 0.25 mg Docusate Sodium (Colace) 100 mg PO BID [facility] Last Admin: 01/22/18 08:15 Dose: 100 mg Epoetin Blade (Procrit) 8,000 unit IV F [facility] Guaifenesin/Dextromethorphan (Mucinex-Dm 600-30 Mg) 1 tab PO BID [facility] Last Admin: 01/22/18 08:14 Dose: 1 tab Home Med (Patient's Own Medication) 1 unit PO DAILY [facility] Last Admin: 01/22/18 08:13 Dose: 1 unit Lactulose (Enulose) 20 gm PO BID PRN PRN Reason: Constipation Last Admin: 01/13/18 13:19 Dose: 20 gm Metoprolol Tartrate (Lopressor) 25 mg PO DAILY [facility] Last Admin: 01/10/18 09:12 Dose: Not Given Midodrine (Proamatine) 10 mg PO Q8 [facility] Last Admin: 01/22/18 08:16 Dose: 10 mg Multivitamins/Minerals (Therapeutic-M Tab) 1 tab PO DAILY [facility] Last Admin: 01/22/18 08:14 Dose: 1 tab Ondansetron HCl (Zofran Inj) 4 mg IVP Q6 PRN PRN Reason: Nausea/Vomiting Ondansetron HCl (Zofran Odt) 4 mg PO DAILY [facility] Last Admin: 01/21/18 09:00 Dose: 4 mg Ondansetron HCl (Zofran Odt) 4 mg PO Q8H PRN PRN Reason: Nausea/Vomiting Last Admin: 01/13/18 10:38 Dose: 4 mg Pantoprazole Sodium (Protonix Inj) 40 mg IVP BID [facility] Last Admin: 01/22/18 08:16 Dose: 40 mg Prednisone (Prednisone Tab) 2.5 mg PO MOFR [facility] Last Admin: 01/19/18 17:15 Dose: 2.5 mg Prochlorperazine (Compazine) 10 mg IVP Q8 PRN PRN Reason: Nausea/Vomiting Last Admin: 01/22/18 06:24 Dose: 10 mg Sevelamer HCl (Renagel) 800 mg PO TID [facility] Last Admin: 01/22/18 08:13 Dose: 800 mg Timolol Maleate (Timoptic 0.5% Oph Soln) 1 drop OU DAILY [facility] Last Admin: 01/22/18 08:19 Dose: 1 drop Vancomycin HCl (Vancocin (Oral/Rectal Use)) 250 mg PO Q8 [facility] PRN Reason: Protocol Last Admin: 01/22/18 08:19 Dose: 250 mg - Labs Labs: 01/22/18 04:30 01/22/18 04:30 PT 15.9 Seconds (9.8-13.1) H 01/22/18 04:30 INR 1.4 (0.9-1.2) H 01/22/18 04:30 APTT 33.7 Seconds (25.6-37.1) 01/19/18 04:20 - Constitutional Appears: No Acute Distress, Chronically Ill - Head Exam Head Exam: NORMAL INSPECTION, NORMOCEPHALIC - Eye Exam Eye Exam: EOMI, Normal appearance Pupil Exam: NORMAL ACCOMODATION - ENT Exam ENT Exam: Mucous Membranes Moist, Normal External Ear Exam - Neck Exam Neck Exam: Full ROM. absent: Meningismus - Respiratory Exam Respiratory Exam: Rales (minimal rales bases), NORMAL BREATHING PATTERN. absent : Respiratory Distress - Cardiovascular Exam Cardiovascular Exam: Irregular Rhythm, +S1, +S2 - GI/Abdominal Exam GI & Abdominal Exam: Distended, Firm, mild Tenderness, Normal Bowel Sounds - Extremities Exam Extremities Exam: Normal Capillary Refill. absent: Calf Tenderness, Pedal Edema Additional comments: right arm AVF - Back Exam Back Exam: absent: CVA tenderness (L), CVA tenderness (R) - Neurological Exam Neurological Exam: Alert, Awake, CN II-XII Intact, Oriented x3 - Psychiatric Exam Psychiatric exam: Flat Affect - Skin Skin Exam: Dry, Normal Color, Warm Assessment and Plan - Assessment and Plan (Free Text) Assessment: 77 y/o lady with Hx of ESRD on HD, Cirrhosis with ascites requiring at least 2x per month Paracentesis, was brought in because of abdominal pain. Patient missed her dialysis because of the pain. In the ED - patient was noted to be slightly hypotensive with BP in the 80 systolic and her Lactate was elevated at 2.4 - she was then admitted to ICU and started on Levophed. CT of the abdomen showed 1. Cirrhosis of liver, large abdominal and pelvic ascites. 2. Small loculated right pleural effusion with pleural calcifications. 3. Stable noncalcified nodules in the right lower lobe, the largest measures 8 mm. In a low risk patient follow-up in 12 month interval and in a high-risk patient follow-up in six-month interval is recommended to assess stability 4. Cholelithiasis. 5. Polycystic kidneys. Her stool work up reported positive for C.diff and she was started on Vanco Po. Received IV albumin and HD. Eliquis kept on hold in preparation for abdominal paracentesis. Due to elevated INR up to 3.4 abdominal Paracentesis was not performed given the high risk for bleeding . FFP and Vitamin K given to correct coagulopathy. During this hospital stay she developed multiple coffee ground episodes of vomiting so NGT was placed , started Protonix BID, GI consulted and was transfused with PRBC due to acute blood loss anemia. At present no more bleeding episodes . NGT removed and tolerating direct . Family opted against EGD. At present still with significant ascites , but no respiratory distress . INR 1.4 . Plan to do Paracentesis today 1. Anemia of acute blood loss secondary to upper GI bleed on chronic anemia of kidney disease Hgb dropped to 6.4 , Hgb now 9.5 post transfusion of 2 units PRBC No more episodes of GI bleed NGT removed and tolerating diet Continue Protonix BID GI on board. Family opted against EGD for now Zofran for nausea 2. Coagulopathy Most likely secondary to liver cirrhosis Transfused 6 unit FFP , given Vitamin K INR 1.4 3. ESRD on HD with Hyperkalemia secondary to missed HD on admission Nephrology following pt cont TIW HD cont Juvencio Had HD 01/19 and asked to terminate it early.Only 1 L fluid was removed 4 Abdominal pain sec to Ascites and C . diff colitis SBP ruled out last Paracentesis done by IR on 01/10 showed no SBP paracentesis on hold due to coagulopathy Given Vitamin K and FFP Hold Eliquis 5. C. Diff colitis Stool positive for Toxin and Ag on Vanco PO ID on Consult rpt c diff 6.Orthostatic Hypotension pt has low baseline BP and is on Midodrine at home Increased Midodrine to 10 mg TID Called her injection specialist Dr. Bui Continue Albumin IV PRN 7. Chronic A Fib rate controlled on digoxin Eliquis on hold for procedure 8. 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 DVT prophylaxis SCD Eliquis on hold
[2018-01-22] MEDS ORDERED: Lidocaine Hydrochloride 1% 10 ML ONE (14:03)
--- NOTE | 2018-01-22 14:37 | CP.PCM.PN ---
Subjective - Date & Time of Evaluation Date of Evaluation: 01/22/18 Time of Evaluation: 14:37 - Subjective Subjective: ID Note- Pt. seen and examined today in IOCU. pt s/p paracentheisis today. less lethargic today. as per nurse had one loose dark BM this am. Objective - Vital Signs/Intake and Output Vital Signs (last 24 hours): Temp Pulse Resp BP Pulse Ox 97.2 F L 70 20 107/51 L 100 01/22/18 14:08 01/22/18 14:08 01/22/18 14:08 01/22/18 14:08 01/22/18 14:08 Intake and Output: 01/22/18 01/22/18 06:59 18:59 Intake Total 208 170 Balance 208 170 - Medications Medications: Current Medications Acetaminophen (Tylenol 325mg Tab) 650 mg PO Q6 PRN PRN Reason: moderate pain level 4-7 Last Admin: 01/20/18 18:41 Dose: 650 mg Albumin Human (Albumin Human 25% (12.5 Gm/50 Ml)) 12.5 gm IV ONCE [facility] Digoxin (Lanoxin) 0.25 mg PO MWF [facility] Last Admin: 01/22/18 08:15 Dose: 0.25 mg Docusate Sodium (Colace) 100 mg PO BID [facility] Last Admin: 01/22/18 08:15 Dose: 100 mg Epoetin Blade (Procrit) 8,000 unit IV F [facility] Guaifenesin/Dextromethorphan (Mucinex-Dm 600-30 Mg) 1 tab PO BID [facility] Last Admin: 01/22/18 08:14 Dose: 1 tab Home Med (Patient's Own Medication) 1 unit PO DAILY [facility] Last Admin: 01/22/18 08:13 Dose: 1 unit Lactulose (Enulose) 20 gm PO BID PRN PRN Reason: Constipation Last Admin: 01/13/18 13:19 Dose: 20 gm Metoprolol Tartrate (Lopressor) 25 mg PO DAILY [facility] Last Admin: 01/10/18 09:12 Dose: Not Given Midodrine (Proamatine) 10 mg PO Q8 [facility] Last Admin: 01/22/18 08:16 Dose: 10 mg Multivitamins/Minerals (Therapeutic-M Tab) 1 tab PO DAILY [facility] Last Admin: 01/22/18 08:14 Dose: 1 tab Ondansetron HCl (Zofran Inj) 4 mg IVP Q6 PRN PRN Reason: Nausea/Vomiting Ondansetron HCl (Zofran Odt) 4 mg PO DAILY [facility] Last Admin: 01/22/18 11:30 Dose: 4 mg Ondansetron HCl (Zofran Odt) 4 mg PO Q8H PRN PRN Reason: Nausea/Vomiting Last Admin: 01/13/18 10:38 Dose: 4 mg Pantoprazole Sodium (Protonix Inj) 40 mg IVP BID [facility] Last Admin: 01/22/18 08:16 Dose: 40 mg Prednisone (Prednisone Tab) 2.5 mg PO MOFR [facility] Last Admin: 01/19/18 17:15 Dose: 2.5 mg Prochlorperazine (Compazine) 10 mg IVP Q8 PRN PRN Reason: Nausea/Vomiting Last Admin: 01/22/18 06:24 Dose: 10 mg Sevelamer HCl (Renagel) 800 mg PO TID [facility] Last Admin: 01/22/18 13:07 Dose: 800 mg Timolol Maleate (Timoptic 0.5% Oph Sol) 1 drop OU DAILY [facility] Last Admin: 01/22/18 08:19 Dose: 1 drop Tramadol HCl (Ultram) 50 mg PO Q12 PRN PRN Reason: Pain, moderate (4-7) Last Admin: 01/22/18 13:06 Dose: 50 mg Vancomycin HCl (Vancocin (Oral/Rectal Use)) 250 mg PO Q8 [facility] PRN Reason: Protocol Last Admin: 01/22/18 08:19 Dose: 250 mg - Labs Labs: - Additional Findings Additional findings: - Constitutional Appears: Non-toxic, No Acute Distress - Head Exam Head Exam: ATRAUMATIC - Eye Exam Eye Exam: EOMI, PERRL - ENT Exam ENT Exam: Normal Oropharynx - Neck Exam Neck exam: Positive for: Full Rom - Respiratory Exam Respiratory Exam: NORMAL BREATHING PATTERN - Cardiovascular Exam Cardiovascular Exam: RRR, +S1, +S2 - GI/Abdominal Exam Additional comments: soft, distended, + ascites minimal tenderness throughout abdomen but no guarding, no rebound + BS - Extremities Exam Additional comments: trace edema b/L LE - Neurological Exam Neurological exam: awake and alert today Laboratory Results - last 72 hr 01/20/18 01/20/18 01/20/18 04:45 04:45 04:45 WBC 9.6 RBC 2.89 L Hgb 9.2 L Hct 27.8 L MCV 96.2 MCH 31.9 H MCHC 33.1 RDW 15.5 H Plt Count 149 PT 17.4 H INR 1.6 H Sodium 138 Potassium 3.8 Chloride 93 L Carbon Dioxide 27 Anion Gap 22 H BUN 44 H Creatinine 2.7 H Est GFR ( Amer) 21 Est GFR (Non-Af Amer) 17 POC Glucose (mg/dL) Random Glucose 91 Calcium 7.3 L Total Bilirubin AST ALT Alkaline Phosphatase Total Protein Albumin Globulin Albumin/Globulin Ratio Stool Occult Blood 01/20/18 01/21/18 01/21/18 19:39 02:50 06:00 WBC 9.1 RBC 3.05 L Hgb 9.7 L Hct 29.3 L MCV 96.2 MCH 31.9 H MCHC 33.2 RDW 15.7 H Plt Count 140 PT INR Sodium Potassium Chloride Carbon Dioxide Anion Gap BUN Creatinine Est GFR ( Amer) Est GFR (Non-Af Amer) POC Glucose (mg/dL) 125 H Random Glucose Calcium Total Bilirubin AST ALT Alkaline Phosphatase Total Protein Albumin Globulin Albumin/Globulin Ratio Stool Occult Blood Positive H 01/21/18 01/22/18 01/22/18 06:00 04:30 04:30 WBC 8.8 RBC 2.98 L Hgb 9.5 L Hct 28.9 L MCV 96.8 MCH 31.8 H MCHC 32.9 L RDW 15.8 H Plt Count 162 PT 15.9 H INR 1.4 H Sodium 139 Potassium 4.0 Chloride 91 L Carbon Dioxide 29 Anion Gap 23 H BUN 62 H Creatinine 3.7 H Est GFR ( Amer) 14 Est GFR (Non-Af Amer) 12 POC Glucose (mg/dL) Random Glucose 85 Calcium 7.3 L Total Bilirubin AST ALT Alkaline Phosphatase Total Protein Albumin Globulin Albumin/Globulin Ratio Stool Occult Blood 01/22/18 04:30 WBC RBC Hgb Hct MCV MCH MCHC RDW Plt Count PT INR Sodium 139 Potassium 4.4 Chloride 93 L Carbon Dioxide 26 Anion Gap 24 H BUN 74 H Creatinine 4.3 H Est GFR ( Amer) 12 Est GFR (Non-Af Amer) 10 POC Glucose (mg/dL) Random Glucose 87 Calcium 7.3 L Total Bilirubin 1.5 H AST 21 ALT 30 Alkaline Phosphatase 114 Total Protein 6.1 L Albumin 3.2 L Globulin 2.8 Albumin/Globulin Ratio 1.1 Stool Occult Blood Microbiology 01/15/18 18:00 Blood-Thru Central Line Blood Culture - Final NO GROWTH AFTER 5 DAYS 01/15/18 18:00 Blood-Thru Central Line Gram Stain - Final TEST NOT PERFORMED 01/10/18 14:12 Ascitic Fluid Gram Stain - Final 01/10/18 14:12 Ascitic Fluid Body Fluid Culture - Final No growth. 01/09/18 03:15 Blood-Venous Blood Culture - Final NO GROWTH AFTER 5 DAYS 01/09/18 03:15 Blood-Venous Gram Stain - Final TEST NOT PERFORMED 01/09/18 03:33 Blood-Venous Blood Culture - Final NO GROWTH AFTER 5 DAYS 01/09/18 03:33 Blood-Venous Gram Stain - Final TEST NOT PERFORMED 01/09/18 18:36 Naris MRSA Culture (Admit) - Final MRSA NOT DETECTED Assessment and Plan (1) Ascites Status: Acute (2) ESRD (end stage renal disease) on dialysis Status: Acute (3) Abdominal pain Status: Acute (4) C. 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 afebrile normal wbc count ascitic fluid cell count not c/w SBP. cxr no infiltrates , right lung Pleural effusion reported on CT . blood cx- neg x 3 ascites fluid gram stain - Cx negative stool c.diff - positive for both AG and toxin reported today from 01/11/2018 plan- continue with oral vanco for + stool c.diff AG and toxin. day# 8 check repeat stool c.diff with the next BM. ascites management as per GI and ICU team. HD as per renal. all above d/w patient and her daughter who is at her bedside. ICU time 45 minutes.
--- NOTE | 2018-01-22 15:14 | PCM.SURG1 ---
Surgeon's Initial Post Op Note - Surgeon's Notes Surgeon: Bandar Garcias MD Relocation Director: None Type of Anesthesia: Local Pre-Operative Diagnosis: ascites Operative Findings: large volume ascites Post-Operative Diagnosis: same Operation Performed: us guided paracentesis Specimen/Specimens Removed: 4.3L straw colored fluid removed Estimated Blood Loss: EBL {In ML}: 0 Date of Surgery/Procedure: 01/22/18 Time of Surgery/Procedure: 14:45
[2018-01-23 05:29] LABS: HEMOGLOBIN 9.1 g/dL (12.0-16.0); MEAN CORPUSCULAR HEMOGLOBIN 31.3 pg (27.0-31.0); MEAN CORPUSCULAR HGB CONC 32.3 g/dL (33.0-37.0); RBC 2.92 Mil/uL (3.80-5.20); RED CELL DISTRIBUTION WIDTH 16.3 % (11.5-14.5); WHITE BLOOD COUNT 7.4 K/uL (4.8-10.8)
[2018-01-23 05:39] LABS: CALCIUM 6.9 mg/dL (8.4-10.2)
--- NOTE | 2018-01-23 07:40 | CP.CCUPN ---
CCU Subjective - Physician Review Subjective (Free Text): 01/23/18 16:06 The patient was Seen/interviewed and examined by me at the bedside during ICU round, Medical records reviewed and Management issues were discussed and formulated with the house staff. Events reviewed Alert and oriented, daughter is at bed side. Denies any chest pain, SOB or Palpitations The only complaint is mild abdominal discomfort Clinically improving, off levophed, BP has been stable. Resp nonlabored, 96-98% saturation @ 2L via nasal cannula. Underwent Paracentesis yesterday, 4.3L straw colored fluid removed Scheduled for HD today CCU Objective - Vital Signs / Intake & Output Vital Signs (Last 4 hours): Vital Signs Temp Pulse Resp BP Pulse Ox 01/23/18 06:00 62 12 110/49 L 100 01/23/18 04:00 97.7 F 70 12 112/38 L 100 Intake and Output (Last 8hrs): Intake & Output 01/22/18 01/23/18 01/23/18 22:59 06:59 14:59 Intake Total 552 72 Output Total 4350 Balance -3798 72 Weight 104 lb Intake: IV 12 22 Oral 540 50 Output: Drainage 4300 Abdomen 4300 Emesis 50 Other: # Bowel Movements 2 1 - Physical Exam Head: Positive for: Atraumatic, Normocephalic Pupils: Positive for: PERRL Extroacular Muscles: Positive for: EOMI Conjunctiva: Positive for: Normal Ears: Positive for: Normal Mouth: Positive for: Moist Mucous Membranes Neck: Positive for: Normal Range of Motion Respiratory/Chest: Positive for: Clear to Auscultation Cardiovascular: Positive for: Regular Rate and Rhythm Abdomen: Positive for: Distention, Other (tense). Negative for: Tenderness Neurological: Positive for: GCS=15, CN II-XII Intact Psychiatric: Positive for: Alert, Oriented x 3 - Medications Active Medications: Active Medications Generic Name Dose Route Start Last Admin Trade Name Freq PRN Reason Stop Dose Admin Acetaminophen 650 mg 01/09/18 17:10 01/22/18 20:23 Tylenol 325mg Tab PO 650 mg Q6 PRN Administration moderate pain level 4-7 Albumin Human 12.5 gm 01/22/18 10:00 Albumin Human 25% (12.5 Gm/50 Ml) IV ONCE [facility] Digoxin 0.25 mg 01/10/18 09:00 01/22/18 08:15 Lanoxin PO 0.25 mg MWF [facility] Administration Docusate Sodium 100 mg 01/12/18 13:00 01/22/18 08:15 Colace PO 100 mg BID [facility] Administration Epoetin Blade 8,000 unit 01/22/18 09:00 Procrit IV MWF [facility] Guaifenesin/Dextromethorphan 1 tab 01/20/18 02:15 01/22/18 16:36 Mucinex-Dm 600-30 Mg PO 1 tab BID [facility] Administration Home Med 1 unit 01/17/18 09:00 01/22/18 08:13 Patient's Own Medication PO 1 unit DAILY [facility] Administration Lactulose 20 gm 01/13/18 09:32 01/13/18 13:19 Enulose PO 20 gm BID PRN Administration Constipation Metoprolol Tartrate 25 mg 01/09/18 09:00 01/10/18 09:12 Lopressor PO Not Given DAILY [facility] Midodrine 10 mg 01/10/18 09:00 01/23/18 00:01 Proamatine PO 10 mg Q8 [facility] Administration Multivitamins/Minerals 1 tab 01/09/18 09:00 01/22/18 08:14 Therapeutic-M Tab PO 1 tab DAILY [facility] Administration Ondansetron HCl 4 mg 01/09/18 06:13 Zofran Inj IVP Q6 PRN Nausea/Vomiting Ondansetron HCl 4 mg 01/10/18 09:00 01/22/18 11:30 Zofran Odt PO 4 mg DAILY [facility] Administration Ondansetron HCl 4 mg 01/11/18 17:44 01/13/18 10:38 Zofran Odt PO 4 mg Q8H PRN Administration Nausea/Vomiting Pantoprazole Sodium 40 mg 01/17/18 18:45 01/22/18 20:40 Protonix Inj IVP 40 mg BID [facility] Administration Prednisone 2.5 mg 01/19/18 17:00 01/22/18 16:35 Prednisone Tab PO 2.5 mg MOFR [facility] Administration Prochlorperazine 10 mg 01/14/18 14:36 01/22/18 21:36 Compazine IVP 10 mg Q8 PRN Administration Nausea/Vomiting Sevelamer HCl 800 mg 01/09/18 09:00 01/22/18 16:37 Renagel PO 800 mg TID [facility] Administration Timolol Maleate 1 drop 01/12/18 11:45 01/22/18 08:19 Timoptic 0.5% Ophth Soln OU 1 drop DAILY [facility] Administration Tramadol HCl 50 mg 01/22/18 11:27 01/22/18 13:06 Ultram PO 50 mg Q12 PRN Administration Pain, moderate (4-7) Vancomycin HCl 250 mg 01/15/18 17:00 01/23/18 00:00 Vancocin (Oral/Rectal Use) PO 250 mg Q8 [facility] Administration Protocol - Patient Studies Lab Studies: Lab Studies 01/23/18 01/23/18 Range/Units 04:20 04:20 WBC 7.4 (4.8-10.8) K/uL RBC 2.92 L (3.80-5.20) Mil/uL Hgb 9.1 L (12.0-16.0) g/dL Hct 28.3 L (34.0-47.0) % MCV 97.0 (81.0-99.0) fl MCH 31.3 H (27.0-31.0) pg MCHC 32.3 L (33.0-37.0) g/dL RDW 16.3 H (11.5-14.5) % Plt Count 165 (130-400) K/uL Sodium 136 (132-148) mmol/l Potassium 5.1 H (3.6-5.0) MMOL/L Chloride 91 L (98-107) mmol/L Carbon Dioxide 25 (22-30) mmol/L Anion Gap 25 H (10-20) BUN 90 H (7-17) mg/dl Creatinine 4.9 H (0.7-1.2) mg/dl Est GFR ( Amer) 10 Est GFR (Non-Af Amer) 9 Random Glucose 76 (65-105) mg/dL Calcium 6.9 L (8.4-10.2) mg/dL Laboratory Results - last 24 hr 01/23/18 01/23/18 04:20 04:20 WBC 7.4 RBC 2.92 L Hgb 9.1 L Hct 28.3 L MCV 97.0 MCH 31.3 H MCHC 32.3 L RDW 16.3 H Plt Count 165 Sodium 136 Potassium 5.1 H Chloride 91 L Carbon Dioxide 25 Anion Gap 25 H BUN 90 H Creatinine 4.9 H Est GFR ( Amer) 10 Est GFR (Non-Af Amer) 9 Random Glucose 76 Calcium 6.9 L Critical Care Progress Note - Nutrition Nutrition: Nutrition Category Date Time Status Renal Diet [DIET] Diets 01/18/18 Dinner Active Assessment/Plan (1) Ascites Current Visit: Yes Status: Acute Comment: (2) ESRD (end stage renal disease) on dialysis Current Visit: Yes Status: Acute (3) Abdominal pain Current Visit: Yes Status: Acute Priority: High Comment: Underwent Paracentesis yesterday, 4.3L straw colored fluid removed CT of the abdomen showed 1. Cirrhosis of liver, large abdominal and pelvic ascites. 2. Small loculated right pleural effusion with pleural calcifications. 3. Stable noncalcified nodules in the right lower lobe, the largest measures 8 mm. In a low risk patient follow-up in 12 month interval and in a high-risk patient follow-up in six-month interval is recommended to assess stability 4. Cholelithiasis. 5. Polycystic kidneys. (4) Ascites Current Visit: Yes Status: Acute Priority: High Comment: Secondary to portal hypertension Last parasenthesis 2 weeks ago low salt diet Underwent Paracentesis yesterday, 4.3L straw colored fluid removed (5) ESRD (end stage renal disease) on dialysis Current Visit: Yes Status: Acute Priority: High Comment: Continue Renagel, HD as per renal (6) Orthostatic hypotension Current Visit: Yes Status: Acute Priority: High Comment: Continue Midodrine (dose increased ro 10 mg PO Q8 )and Steroids 2.5 mg po daily Continue Albumin IV PRN (7) Secondary hyperparathyroidism of renal origin Current Visit: No Status: Acute Comment: PTH 383 continue renagel (8) Atrial fibrillation with controlled ventricular rate Current Visit: Yes Status: Acute Comment: HR controlled Eliquis on hold for the paracentesis
--- NOTE | 2018-01-23 08:28 | CP.PCM.PN ---
Subjective - Date & Time of Evaluation Date of Evaluation: 01/23/18 Time of Evaluation: 08:00 - Subjective Subjective: No fever vomited last night the food that she ate the previous night still with abd discomfort complains of some right arm pitting edema at site of AV fistula no CP no SOB Plan for Hemodialysis today Objective - Vital Signs/Intake and Output Vital Signs (last 24 hours): Temp Pulse Resp BP Pulse Ox 97.7 F 62 12 110/49 L 100 01/23/18 04:00 01/23/18 06:00 01/23/18 06:00 01/23/18 06:00 01/23/18 06:00 Intake and Output: 01/23/18 01/23/18 06:59 18:59 Intake Total 144 Output Total 50 Balance 94 - Medications Medications: Current Medications Acetaminophen (Tylenol 325mg Tab) 650 mg PO Q6 PRN PRN Reason: moderate pain level 4-7 Last Admin: 01/22/18 20:23 Dose: 650 mg Albumin Human (Albumin Human 25% (12.5 Gm/50 Ml)) 12.5 gm IV ONCE [facility] Digoxin (Lanoxin) 0.25 mg PO MWF [facility] Last Admin: 01/22/18 08:15 Dose: 0.25 mg Docusate Sodium (Colace) 100 mg PO BID [facility] Last Admin: 01/22/18 08:15 Dose: 100 mg Epoetin Blade (Procrit) 8,000 unit [place] [facility] [place] Guaifenesin/Dextromethorphan (Mucinex-Dm 600-30 Mg) 1 tab PO BID [facility] Last Admin: 01/22/18 16:36 Dose: 1 tab Home Med (Patient's Own Medication) 1 unit PO DAILY [facility] Last Admin: 01/22/18 08:13 Dose: 1 unit Lactulose (Enulose) 20 gm PO BID PRN PRN Reason: Constipation Last Admin: 01/13/18 13:19 Dose: 20 gm Metoprolol Tartrate (Lopressor) 25 mg PO DAILY [facility] Last Admin: 01/10/18 09:12 Dose: Not Given Midodrine (Proamatine) 10 mg PO Q8 [facility] Last Admin: 01/23/18 00:01 Dose: 10 mg Multivitamins/Minerals (Therapeutic-M Tab) 1 tab PO DAILY [facility] Last Admin: 01/22/18 08:14 Dose: 1 tab Ondansetron HCl (Zofran Inj) 4 mg IVP Q6 PRN PRN Reason: Nausea/Vomiting Ondansetron HCl (Zofran Odt) 4 mg PO DAILY [facility] Last Admin: 01/22/18 11:30 Dose: 4 mg Ondansetron HCl (Zofran Odt) 4 mg PO Q8H PRN PRN Reason: Nausea/Vomiting Last Admin: 01/13/18 10:38 Dose: 4 mg Pantoprazole Sodium (Protonix Inj) 40 mg IVP BID [facility] Last Admin: 01/22/18 20:40 Dose: 40 mg Prednisone (Prednisone Tab) 2.5 mg PO MOFR [facility] Last Admin: 01/22/18 16:35 Dose: 2.5 mg Prochlorperazine (Compazine) 10 mg IVP Q8 PRN PRN Reason: Nausea/Vomiting Last Admin: 01/22/18 21:36 Dose: 10 mg Sevelamer HCl (Renagel) 800 mg PO TID [facility] Last Admin: 01/22/18 16:37 Dose: 800 mg Timolol Maleate (Timoptic 0.5% Oph Sol) 1 drop OU DAILY [facility] Last Admin: 01/22/18 08:19 Dose: 1 drop Tramadol HCl (Ultram) 50 mg PO Q12 PRN PRN Reason: Pain, moderate (4-7) Last Admin: 01/22/18 13:06 Dose: 50 mg Vancomycin HCl (Vancocin (Oral/Rectal Use)) 250 mg PO Q8 [facility] PRN Reason: Protocol Last Admin: 01/23/18 00:00 Dose: 250 mg - Labs Labs: 01/23/18 04:20 01/23/18 04:20 PT 15.9 Seconds (9.8-13.1) H 01/22/18 04:30 INR 1.4 (0.9-1.2) H 01/22/18 04:30 APTT 33.7 Seconds (25.6-37.1) 01/19/18 04:20 - Constitutional Appears: No Acute Distress, Chronically Ill - Head Exam Head Exam: NORMAL INSPECTION, NORMOCEPHALIC - Eye Exam Eye Exam: EOMI, Normal appearance Pupil Exam: NORMAL ACCOMODATION - ENT Exam ENT Exam: Mucous Membranes Moist, Normal External Ear Exam - Neck Exam Neck Exam: Full ROM. absent: Meningismus - Respiratory Exam Respiratory Exam: Rales (minimal rales bases), NORMAL BREATHING PATTERN. absent : Respiratory Distress - Cardiovascular Exam Cardiovascular Exam: Irregular Rhythm, +S1, +S2 - GI/Abdominal Exam GI & Abdominal Exam: Distended, Firm, mild Tenderness, Normal Bowel Sounds - Extremities Exam Extremities Exam: Normal Capillary Refill. absent: Calf Tenderness, Pedal Edema Additional comments: right arm AVF, sl edema - Back Exam Back Exam: absent: CVA tenderness (L), CVA tenderness (R) - Neurological Exam Neurological Exam: Alert, Awake, CN II-XII Intact, Oriented x3 - Psychiatric Exam Psychiatric exam: Flat Affect - Skin Skin Exam: Dry, Normal Color, Warm Assessment and Plan - Assessment and Plan (Free Text) Assessment: 77 y/o lady with Hx of ESRD on HD, Cirrhosis with ascites requiring at least 2x per month Paracentesis, was brought in because of abdominal pain. Patient missed her dialysis because of the pain. In the ED - patient was noted to be slightly hypotensive with BP in the 80 systolic and her Lactate was elevated at 2.4 - she was then admitted to ICU and started on Levophed. CT of the abdomen showed 1. Cirrhosis of liver, large abdominal and pelvic ascites. 2. Small loculated right pleural effusion with pleural calcifications. 3. Stable noncalcified nodules in the right lower lobe, the largest measures 8 mm. In a low risk patient follow-up in 12 month interval and in a high-risk patient follow-up in six-month interval is recommended to assess stability 4. Cholelithiasis. 5. Polycystic kidneys. Her stool work up reported positive for C.diff and she was started on Vanco Po. Received IV albumin and HD. Eliquis kept on hold in preparation for abdominal paracentesis. Due to elevated INR up to 3.4 abdominal Paracentesis was not performed given the high risk for bleeding . FFP and Vitamin K given to correct coagulopathy. During this hospital stay she developed multiple coffee ground episodes of vomiting so NGT was placed , started Protonix BID, GI consulted and was transfused with PRBC due to acute blood loss anemia. At present no more bleeding episodes . NGT removed and tolerating direct . Family opted against EGD. 01/22: Paracentesis done 4.3 liters Ascitic fluid obtained 1. Anemia of acute blood loss secondary to upper GI bleed on chronic anemia of kidney disease Hgb dropped to 6.4 , Hgb now 9.1 post transfusion of 2 units PRBC No more episodes of GI bleed NGT removed and tolerating diet Continue Protonix BID GI on board. Family opted against EGD for now Zofran for nausea Eliquis held 2. Coagulopathy Most likely secondary to liver cirrhosis Transfused 6 unit FFP , given Vitamin K INR 1.4 3. ESRD on HD with Hyperkalemia secondary to missed HD on admission Nephrology following pt cont TIW HD cont Renagel for HD today ( held yesterday as pt had Paracentesis) 4 Abdominal pain sec to Ascites and C . diff colitis SBP ruled out Paracentesis done by IR on 01/10 then on 01/22 Ascitic fluid analysis : no SBP Pt vomited last night - discussed with Dr Lea ? Ileus - rec KUB, change diet Ensure 5. C. 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 Bui Continue Albumin IV PRN 7. Chronic A Fib rate controlled on digoxin Eliquis on hold due to GIB 8. Cryptogenic Cirrhosis of the liver with ascites,coagulopathy and Thrombocytopenia Steroids PO for thrombocytopenia Transfuse FFP PRN Patient follows up with GI in [place] 9. DVT prophylaxis SCD Eliquis on hold
--- NOTE | 2018-01-23 08:38 | US ---
PROCEDURE: ULTRASOUND-GUIDED PARACENTESIS CLINICAL HISTORY: 77-year-old female with cirrhosis and recurrent symptomatic ascites is referred to Interventional Radiology for ultrasound-guided paracentesis. COMPARISON: Paracentesis performed 01/10/2018 PROCEDURE: 1. Ultrasound-guided paracentesis. PRE-PROCEDURE FINDINGS: 1. Large volume ascites. POST-PROCEDURE FINDINGS: 1. No evidence of post-procedural complication. INTERVENTIONAL RADIOLOGIST: Bandar Garcias M.D. (the attending was present for the entire procedure) ANESTHESIA: None. MEDICATION: Lidocaine 1% for local subcutaneous analgesia. COMPLICATIONS: None. PROCEDURE DESCRIPTION AND FINDINGS: The risks, benefits, alternatives and possible complications of the procedure were fully discussed; all questions were answered and informed consent was obtained. The patient was brought into the interventional suite and a pre-procedure 'time-out' was performed. The patient was placed on the fluoroscopy table in the supine position. Preliminary ultrasound images of the left lower quadrant demonstrate a large amount of ascites. The left lower quadrant was prepped and draped in the usual sterile fashion. Maximum sterile barrier precautions were maintained throughout the entire procedure. Following subcutaneous infiltration of lidocaine 1% for local analgesia, under real-time ultrasound guidance, a 5 Wolof centesis catheter was advanced into the left lower quadrant with real-time visualization of needle entry. The ultrasound images were permanently recorded and submitted to the PACS. The inner stylet was removed and the catheter was attached to gentle vacuum suction. A total of 4.3 liters of straw-colored fluid were aspirated. The drainage catheter was then removed. A sterile adhesive bandage was placed over the puncture site. The patient tolerated the procedure well without immediate post-procedure complications and was transferred back to the floor in stable condition. IMPRESSION: SUCCESSFUL ULTRASOUND-GUIDED THERAPEUTIC PARACENTESIS.
[2018-01-23] MEDS: guaiFENesin-DM 600-30 mg ER Tab PO SCH ×2 (08:44→16:15)
[2018-01-23] MEDS: Vancomycin 500 mg (Oral/Rectal USE) PO SCH ×3 (08:45→16:16)
[2018-01-23] MEDS: Multivitamin With Minerals Tab PO SCH (08:45)
--- NOTE | 2018-01-23 10:56 | CP.PCM.PN ---
Subjective - Date & Time of Evaluation Date of Evaluation: 01/23/18 Time of Evaluation: 10:54 - Subjective Subjective: Dialysis note She was seen on hemodialysis patient is awake complaining of some abdominal pain. No vomiting, Vital sign noted Objective - Vital Signs/Intake and Output Vital Signs (last 24 hours): Temp Pulse Resp BP Pulse Ox 97.7 F 70 12 119/60 100 01/23/18 08:00 01/23/18 10:00 01/23/18 10:00 01/23/18 10:00 01/23/18 10:00 Intake and Output: 01/23/18 01/23/18 06:59 18:59 Intake Total 144 240 Output Total 50 Balance 94 240 - Medications Medications: Current Medications Acetaminophen (Tylenol 325mg Tab) 650 mg PO Q6 PRN PRN Reason: moderate pain level 4-7 Last Admin: 01/22/18 20:23 Dose: 650 mg Digoxin (Lanoxin) 0.25 mg PO F [facility] Last Admin: 01/22/18 08:15 Dose: 0.25 mg Epoetin Blade (Procrit) 8,000 unit IV [facility] [place] Guaifenesin/Dextromethorphan (Mucinex-Dm 600-30 Mg) 1 tab PO BID [facility] Last Admin: 01/23/18 08:44 Dose: 1 tab Home Med (Patient's Own Medication) 1 unit PO DAILY [facility] Last Admin: 01/22/18 08:13 Dose: 1 unit Lactulose (Enulose) 20 gm PO BID PRN PRN Reason: Constipation Last Admin: 01/13/18 13:19 Dose: 20 gm Metoprolol Tartrate (Lopressor) 25 mg PO DAILY [facility] Last Admin: 01/10/18 09:12 Dose: Not Given Midodrine (Proamatine) 10 mg PO Q8 [facility] Last Admin: 01/23/18 08:44 Dose: 10 mg Multivitamins/Minerals (Therapeutic-M Tab) 1 tab PO DAILY [facility] Last Admin: 01/23/18 08:45 Dose: 1 tab Ondansetron HCl (Zofran Inj) 4 mg IVP Q6 PRN PRN Reason: Nausea/Vomiting Ondansetron HCl (Zofran Odt) 4 mg PO DAILY [facility] Last Admin: 01/23/18 08:46 Dose: 4 mg Ondansetron HCl (Zofran Odt) 4 mg PO Q8H PRN PRN Reason: Nausea/Vomiting Last Admin: 01/13/18 10:38 Dose: 4 mg Pantoprazole Sodium (Protonix Inj) 40 mg IVP BID [facility] Last Admin: 01/23/18 08:44 Dose: 40 mg Prednisone (Prednisone Tab) 2.5 mg PO MOFR [facility] Last Admin: 01/22/18 16:35 Dose: 2.5 mg Prochlorperazine (Compazine) 10 mg IVP Q8 PRN PRN Reason: Nausea/Vomiting Last Admin: 01/22/18 21:36 Dose: 10 mg Sevelamer HCl (Renagel) 800 mg PO TID [facility] Last Admin: 01/23/18 08:45 Dose: 800 mg Timolol Maleate (Timoptic 0.5% Ophth Soln) 1 drop OU DAILY [facility] Last Admin: 01/23/18 08:45 Dose: 1 drop Tramadol HCl (Ultram) 50 mg PO Q12 PRN PRN Reason: Pain, moderate (4-7) Last Admin: 01/22/18 13:06 Dose: 50 mg Vancomycin HCl (Vancocin (Oral/Rectal Use)) 250 mg PO Q8 [facility] PRN Reason: Protocol Last Admin: 01/23/18 08:45 Dose: 250 mg - Labs Labs: 01/23/18 04:20 01/23/18 04:20 PT 15.9 Seconds (9.8-13.1) H 01/22/18 04:30 INR 1.4 (0.9-1.2) H 01/22/18 04:30 APTT 33.7 Seconds (25.6-37.1) 01/19/18 04:20 - Constitutional Appears: No Acute Distress - Eye Exam Eye Exam: Conjunctival injection - ENT Exam ENT Exam: Mucous Membranes Moist - Neck Exam Neck Exam: absent: Lymphadenopathy - Respiratory Exam Respiratory Exam: Rhonchi. absent: Chest Wall Tenderness - Cardiovascular Exam Cardiovascular Exam: Irregular Rhythm. absent: Gallop, JVD, Rubs - GI/Abdominal Exam GI & Abdominal Exam: Guarding - Extremities Exam Extremities Exam: absent: Calf Tenderness - Back Exam Back Exam: absent: CVA tenderness (L), CVA tenderness (R) - Neurological Exam Neurological Exam: Alert - Psychiatric Exam Psychiatric exam: Normal Affect - Skin Skin Exam: absent: Cyanosis Assessment and Plan (1) Abdominal pain Status: Acute (2) Ascites Status: Acute (3) ESRD (end stage renal disease) on dialysis Assessment & Plan: END Stage renal disease patient receiving hemodialysis now from right upper arm AV shunt. It was noted that proximal area of the shunt and elbow swollen somewhat but it' s not affecting the AV shunt and it has good bruit. Hypotension patient did receive 25% albumin on dialysis. Status paracentesis yesterday and removal of over 4000 mL of fluid. Chronic Clostridium difficile patient receiving treatment. Chronic debility Hypoalbuminemia Recurrent ascites was recurrent paracentesis. Discussed with Dr. Bob. And the dialysis Nurse at bed side. Ultrafiltration goal about 1500 mL if tolerated Status: Acute
[2018-01-23] MEDS ORDERED: Albumin Human 25% (12.5 gm/50 ml) IV STA (11:53)
--- NOTE | 2018-01-23 14:41 | RAD ---
HISTORY: Ileus, vomiting COMPARISON: 06/18/2013 . FINDINGS: BOWEL: numerous dilated small bowel loops consistent with mechanical small bowel obstruction. No masses or abnormal calcifications . Right femoral venous catheter. Left hip arthroplasty. BONES: Normal. OTHER FINDINGS: None. IMPRESSION: Findings consistent with mechanical small bowel obstruction.
--- NOTE | 2018-01-23 15:20 | CP.PCM.PN ---
Subjective - Date & Time of Evaluation Date of Evaluation: 01/23/18 Time of Evaluation: 12:30 - Subjective Subjective: ID Note- pt. seen and examined. has been having nause and had vomiting as per nurse today. afebrile has loose BM today as per nurse but pt. had also received stool softeners the day before as per nurse. Objective - Vital Signs/Intake and Output Vital Signs (last 24 hours): Temp Pulse Resp BP Pulse Ox 97.3 F L 70 19 110/45 L 100 01/23/18 12:00 01/23/18 14:00 01/23/18 14:00 01/23/18 14:00 01/23/18 14:00 Intake and Output: 01/23/18 01/23/18 06:59 18:59 Intake Total 144 240 Output Total 50 Balance 94 240 - Medications Medications: Current Medications Acetaminophen (Tylenol 325mg Tab) 650 mg PO Q6 PRN PRN Reason: moderate pain level 4-7 Last Admin: 01/22/18 20:23 Dose: 650 mg Digoxin (Lanoxin) 0.25 mg PO [facility] [place] Last Admin: 01/22/18 08:15 Dose: 0.25 mg Epoetin Blade (Procrit) 8,000 unit IV [facility] [place] Guaifenesin/Dextromethorphan (Mucinex-Dm 600-30 Mg) 1 tab PO BID [facility] Last Admin: 01/23/18 08:44 Dose: 1 tab Lactulose (Enulose) 20 gm PO BID PRN PRN Reason: Constipation Last Admin: 01/13/18 13:19 Dose: 20 gm Metoprolol Tartrate (Lopressor) 25 mg PO DAILY [facility] Last Admin: 01/10/18 09:12 Dose: Not Given Midodrine (Proamatine) 10 mg PO Q8 [facility] Last Admin: 01/23/18 08:44 Dose: 10 mg Multivitamins/Minerals (Therapeutic-M Tab) 1 tab PO DAILY [facility] Last Admin: 01/23/18 08:45 Dose: 1 tab Ondansetron HCl (Zofran Odt) 4 mg PO DAILY [facility] Last Admin: 01/23/18 08:46 Dose: 4 mg Ondansetron HCl (Zofran Odt) 4 mg PO Q8H PRN PRN Reason: Nausea/Vomiting Last Admin: 01/13/18 10:38 Dose: 4 mg Pantoprazole Sodium (Protonix Inj) 40 mg IVP BID [facility] Last Admin: 01/23/18 08:44 Dose: 40 mg Prednisone (Prednisone Tab) 2.5 mg PO MOFR [facility] Last Admin: 01/22/18 16:35 Dose: 2.5 mg Prochlorperazine (Compazine) 10 mg IVP Q8 PRN PRN Reason: Nausea/Vomiting Last Admin: 01/23/18 14:25 Dose: 10 mg Timolol Maleate (Timoptic 0.5% Ophth Soln) 1 drop OU DAILY [facility] Last Admin: 01/23/18 08:45 Dose: 1 drop Tramadol HCl (Ultram) 50 mg PO Q12 PRN PRN Reason: Pain, moderate (4-7) Last Admin: 01/22/18 13:06 Dose: 50 mg Vancomycin HCl (Vancocin (Oral/Rectal Use)) 250 mg PO Q8 [facility] PRN Reason: Protocol Last Admin: 01/23/18 08:45 Dose: 250 mg - Labs Labs: - Additional Findings Additional findings: - Constitutional Appears: Non-toxic, No Acute Distress - Head Exam Head Exam: ATRAUMATIC - Eye Exam Eye Exam: EOMI, PERRL - ENT Exam ENT Exam: Normal Oropharynx - Neck Exam Neck exam: Positive for: Full Rom - Respiratory Exam Respiratory Exam: NORMAL BREATHING PATTERN - Cardiovascular Exam Cardiovascular Exam: RRR, +S1, +S2 - GI/Abdominal Exam Additional comments: distended, + ascites minimal tenderness throughout abdomen but no guarding, no rebound + BS - Extremities Exam Additional comments: trace edema b/L LE - Neurological Exam Neurological exam: awake and alert but tired Laboratory Results - last 72 hr 01/21/18 01/21/18 01/21/18 02:50 06:00 06:00 WBC 9.1 RBC 3.05 L Hgb 9.7 L Hct 29.3 L MCV 96.2 MCH 31.9 H MCHC 33.2 RDW 15.7 H Plt Count 140 PT INR Sodium 139 Potassium 4.0 Chloride 91 L Carbon Dioxide 29 Anion Gap 23 H BUN 62 H Creatinine 3.7 H Est GFR ( Amer) 14 Est GFR (Non-Af Amer) 12 Random Glucose 85 Calcium 7.3 L Total Bilirubin AST ALT Alkaline Phosphatase Total Protein Albumin Globulin Albumin/Globulin Ratio PTH Intact Whole Molec Stool Occult Blood Positive H C. difficile Ag & Toxin 01/22/18 01/22/18 01/22/18 04:30 04:30 04:30 WBC 8.8 RBC 2.98 L Hgb 9.5 L Hct 28.9 L MCV 96.8 MCH 31.8 H MCHC 32.9 L RDW 15.8 H Plt Count 162 PT 15.9 H INR 1.4 H Sodium 139 Potassium 4.4 Chloride 93 L Carbon Dioxide 26 Anion Gap 24 H BUN 74 H Creatinine 4.3 H Est GFR ( Amer) 12 Est GFR (Non-Af Amer) 10 Random Glucose 87 Calcium 7.3 L Total Bilirubin 1.5 H AST 21 ALT 30 Alkaline Phosphatase 114 Total Protein 6.1 L Albumin 3.2 L Globulin 2.8 Albumin/Globulin Ratio 1.1 PTH Intact Whole Molec Stool Occult Blood C. difficile Ag & Toxin 01/22/18 01/23/18 01/23/18 09:03 04:20 04:20 WBC 7.4 RBC 2.92 L Hgb 9.1 L Hct 28.3 L MCV 97.0 MCH 31.3 H MCHC 32.3 L RDW 16.3 H Plt Count 165 PT INR Sodium 136 Potassium 5.1 H Chloride 91 L Carbon Dioxide 25 Anion Gap 25 H BUN 90 H Creatinine 4.9 H Est GFR ( Amer) 10 Est GFR (Non-Af Amer) 9 Random Glucose 76 Calcium 6.9 L Total Bilirubin AST ALT Alkaline Phosphatase Total Protein Albumin Globulin Albumin/Globulin Ratio PTH Intact Whole Molec 51 Stool Occult Blood C. difficile Ag & Toxin 01/23/18 10:46 WBC RBC Hgb Hct MCV MCH MCHC RDW Plt Count PT INR Sodium Potassium Chloride Carbon Dioxide Anion Gap BUN Creatinine Est GFR ( Amer) Est GFR (Non-Af Amer) Random Glucose Calcium Total Bilirubin AST ALT Alkaline Phosphatase Total Protein Albumin Globulin Albumin/Globulin Ratio PTH Intact Whole Molec Stool Occult Blood C. difficile Ag & Toxin Negative Microbiology 01/15/18 18:00 Blood-Thru Central Line Blood Culture - Final NO GROWTH AFTER 5 DAYS 01/15/18 18:00 Blood-Thru Central Line Gram Stain - Final TEST NOT PERFORMED 01/10/18 14:12 Ascitic Fluid Gram Stain - Final 01/10/18 14:12 Ascitic Fluid Body Fluid Culture - Final No growth. 01/09/18 03:15 Blood-Venous Blood Culture - Final NO GROWTH AFTER 5 DAYS 01/09/18 03:15 Blood-Venous Gram Stain - Final TEST NOT PERFORMED 01/09/18 03:33 Blood-Venous Blood Culture - Final NO GROWTH AFTER 5 DAYS 01/09/18 03:33 Blood-Venous Gram Stain - Final TEST NOT PERFORMED 01/09/18 18:36 Naris MRSA Culture (Admit) - Final MRSA NOT DETECTED Assessment and Plan (1) Ascites Status: Acute (2) ESRD (end stage renal disease) on dialysis Status: Acute (3) Abdominal pain Status: Acute (4) C. 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 afebrile normal wbc count ascitic fluid cell count not c/w SBP. cxr no infiltrates , right lung Pleural effusion reported on CT . blood cx- neg x 3 ascites fluid gram stain - Cx negative stool c.diff - positive for both AG and toxin reported today from 01/11/2018 repeat stool c.diff - negative for toxin and AG 01/23/2018 abd Xray- mechanical small bowel obstruction as per report. plan- continue with oral vanco for + stool c.diff AG and toxin. day# 9 d/c vanco oral tomm as pt. is now c.diff negative and has completed 10 days. check repeat stool c.diff with the next BM. ascites and Small bowel obstruction management as per GI /surgery and ICU team. HD as per renal. ICU time 45 minutes.
[2018-01-23] MEDS ORDERED: Chlorhexidine Gluconate 1 APPL/PKT TP ONE (16:58)
--- NOTE | 2018-01-23 19:55 | CP.PCM.CON ---
History of Present Illness - History of Present Illness History of Present Illness: SURGERY CONSULT NOTE FOR DR. ALVARADO Surgery consult for small bowel obstruction 77F states she has been having abdominal pain for a couple of days. Pain is diffuse and constant. Family bedside state she has been having nausea and multiple bouts of dark emesis today. They also states she has been having bowel movement today also. Family states patient usually comes to the hospital every month for a paracentesis and has been coming more often recently. Last paracentesis was yesterday and a total of 1400cc of straw colored ascites was drained. PMH: A fib, anxiety, HTN, ESRD on HD, chronic LE edema, liver disease with ascites PSH: Pacemaker, RUE HD fistula, paracentesis, pericardial window, Left hip athroplasty. Allergies: listed in chart Past Patient History - Infectious Disease Hx of Infectious Diseases: None - Tetanus Immunizations Tetanus Immunization: Unknown - Past Medical History & Family History Past Medical History?: Yes - Past Social History Smoking Status: Never Smoked Alcohol: None Drugs: Denies Home Situation {Lives}: With Family - CARDIAC Hx Atrial Fibrillation: Yes Hx Hypertension: Yes - PULMONARY Hx Pneumonia: Yes - NEUROLOGICAL Hx Neurological Disorder: No - HEENT Hx Glaucoma: Yes - RENAL Hx Chronic Kidney Disease: Yes Hx Dialysis: Yes - ENDOCRINE/METABOLIC Hx Endocrine Disorders: No - HEMATOLOGICAL/ONCOLOGICAL Hx Anemia: Yes Hx Cirrhosis: Yes - INTEGUMENTARY Hx Dermatological Problems: No - MUSCULOSKELETAL/RHEUMATOLOGICAL Hx Arthritis: Yes - GASTROINTESTINAL Hx Diverticulitis: Yes - GENITOURINARY/GYNECOLOGICAL Hx Genitourinary Disorders: No - PSYCHIATRIC Hx Anxiety: Yes - SURGICAL HISTORY Hx Surgeries: Yes Other/Comment: PARACENTESIS SERIES. Hip replacement - ANESTHESIA Hx Anesthesia: Yes Hx Anesthesia Reactions: Yes (HARD TO WAKE UP) Hx Malignant Hyperthermia: No Meds Allergies/Adverse Reactions: Allergies Allergy/AdvReac Type Severity Reaction Status Date / Time Penicillins Allergy RASH Verified 01/09/18 01:48 morphine AdvReac HEADACHE Verified 01/09/18 01:48 mayonnaise AdvReac VOMITING Uncoded 01/09/18 01:48 - Medications Medications: Current Medications Acetaminophen (Tylenol 325mg Tab) 650 mg PO Q6 PRN PRN Reason: moderate pain level 4-7 Last Admin: 01/23/18 16:25 Dose: 650 mg Digoxin (Lanoxin) 0.25 mg PO [facility]WF [facility] Last Admin: 01/22/18 08:15 Dose: 0.25 mg Epoetin Blade (Procrit) 8,000 [place] [facility] [place]aifenesin/Dextromethorphan (Mucinex-Dm 600-30 Mg) 1 tab PO BID [facility] Last Admin: 01/23/18 16:15 Dose: 1 tab Lactulose (Enulose) 20 gm PO BID PRN PRN Reason: Constipation Last Admin: 01/13/18 13:19 Dose: 20 gm Metoprolol Tartrate (Lopressor) 25 mg PO DAILY [facility] Last Admin: 01/10/18 09:12 Dose: Not Given Midodrine (Proamatine) 10 mg PO Q8 [facility] Last Admin: 01/23/18 16:15 Dose: 10 mg Multivitamins/Minerals (Therapeutic-M Tab) 1 tab PO DAILY [facility] Last Admin: 01/23/18 08:45 Dose: 1 tab Ondansetron HCl (Zofran Odt) 4 mg PO DAILY [facility] Last Admin: 01/23/18 08:46 Dose: 4 mg Ondansetron HCl (Zofran Odt) 4 mg PO Q8H PRN PRN Reason: Nausea/Vomiting Last Admin: 01/13/18 10:38 Dose: 4 mg Pantoprazole Sodium (Protonix Inj) 40 mg IVP BID [facility] Last Admin: 01/23/18 16:15 Dose: 40 mg Prednisone (Prednisone Tab) 2.5 mg PO MOFR [facility] Last Admin: 01/22/18 16:35 Dose: 2.5 mg Prochlorperazine (Compazine) 10 mg IVP Q8 PRN PRN Reason: Nausea/Vomiting Last Admin: 01/23/18 14:25 Dose: 10 mg Timolol Maleate (Timoptic 0.5% Ophth Soln) 1 drop OU DAILY [facility] Last Admin: 01/23/18 08:45 Dose: 1 drop Tramadol HCl (Ultram) 50 mg PO Q12 PRN PRN Reason: Pain, moderate (4-7) Last Admin: 01/22/18 13:06 Dose: 50 mg Vancomycin HCl (Vancocin (Oral/Rectal Use)) 250 mg PO Q8 [facility] PRN Reason: Protocol Last Admin: 01/23/18 16:16 Dose: 250 mg Physical Exam - Constitutional Appears: Well, Non-toxic, No Acute Distress - Eye Exam Eye Exam: EOMI, PERRL - Respiratory Exam Respiratory Exam: Clear to Auscultation Bilateral, NORMAL BREATHING PATTERN - Cardiovascular Exam Cardiovascular Exam: REGULAR RHYTHM, +S1, +S2 - GI/Abdominal Exam GI & Abdominal Exam: Distended, Firm, Soft, Tenderness (mild to moderately distended). absent: Guarding, Rebound, Rigid Additional comments: NG tube in place- 100cc out so far - Extremities Exam Extremities exam: Negative for: pedal edema, tenderness - Neurological Exam Neurological exam: Alert - Psychiatric Exam Psychiatric exam: Normal Affect, Normal Mood - Skin Skin Exam: Dry, Intact, Normal Color, Warm Results - Vital Signs Recent Vital Signs: Last Vital Signs Temp 97.7 F 01/23/18 16:29 Pulse 70 01/23/18 18:00 Resp 15 01/23/18 18:00 BP 99/46 L 01/23/18 18:00 Pulse Ox 100 01/23/18 18:00 - Labs Result Diagrams: 01/23/18 04:20 01/23/18 04:20 Labs: Laboratory Results - last 24 hr 01/22/18 01/23/18 01/23/18 09:03 04:20 04:20 WBC 7.4 RBC 2.92 L Hgb 9.1 L Hct 28.3 L MCV 97.0 MCH 31.3 H MCHC 32.3 L RDW 16.3 H Plt Count 165 Sodium 136 Potassium 5.1 H Chloride 91 L Carbon Dioxide 25 Anion Gap 25 H BUN 90 H Creatinine 4.9 H Est GFR ( Amer) 10 Est GFR (Non-Af Amer) 9 Random Glucose 76 Calcium 6.9 L PTH Intact Whole Molec 51 C. difficile Ag & Toxin 01/23/18 10:46 WBC RBC Hgb Hct MCV MCH MCHC RDW Plt Count Sodium Potassium Chloride Carbon Dioxide Anion Gap BUN Creatinine Est GFR ( Amer) Est GFR (Non-Af Amer) Random Glucose Calcium PTH Intact Whole Molec C. difficile Ag & Toxin Negative Assessment & Plan - Assessment and Plan (Free Text) Assessment: 77F with abdominal pain likely 2/[address] prelim read - normal caliber small bowel, large amount of ascites Plan: - Attempt Clear liquid diet - Ascites drainage - Monitor for bowel function - serial abdominal exams - NGT in place - Monitor output Further recs discuss with Dr. Venkat Joel, PGY2
[2018-01-24] MEDS: Vancomycin 500 mg (Oral/Rectal USE) PO SCH ×3 (00:06→17:02)
[2018-01-24 05:56] LABS: HEMOGLOBIN 8.6 g/dL (12.0-16.0); MEAN CORPUSCULAR HEMOGLOBIN 31.9 pg (27.0-31.0); MEAN CORPUSCULAR HGB CONC 32.9 g/dL (33.0-37.0); RBC 2.71 Mil/uL (3.80-5.20); RED CELL DISTRIBUTION WIDTH 16.1 % (11.5-14.5); WHITE BLOOD COUNT 6.8 K/uL (4.8-10.8)
[2018-01-24 06:22] LABS: CALCIUM 7.1 mg/dL (8.4-10.2)
--- NOTE | 2018-01-24 08:33 | CP.CCUPN ---
CCU Subjective - Physician Review Subjective (Free Text): Easily arousable from sleep, NGT remains in place, no appreciable drainage, no recent fever spikes, no increase nor new abd discomfort since paracentesis 2 days ago. Still producing soft melanotic stool. Other Vitals and I/Os reviewed. HR stable, no new arrhythmias, SBP levels have been at her usual baseline, no periods of SBP below 80 over the past 1 week. Had HD yesterday and 1000ml removed. ROS: No other pertinent negs or positives on system review PMSFH: All other Nursing and physician documentation reviewed to date; no new pertinent info noted relevant to current medical problems. EXAM- HEENT: no icterus, no gaze preference, pupils equal and reactive, no icterus NECK: No JVD, supple, carotids equal upstroke bilat/no bruits CHEST: decreased BS bases, no wheezes audible HEART: regular distant, S1S2, no rubs. ABD: soft, +distention, no tympany, no palp tenderness, BS hypoactive. EXT: trace edema bilat. No peripheral/ digital cyanosis, no calf tenderness or palpable cords, distal pulses intact and symmetrical. RUE AV shunt with good bruit and thrill. NEURO: no gross focal motor deficits. SKIN: no rashes, warm and dry. LABS: Coags: INR 1.4 on 01/22/18 Digoxin = 3.3 WBC= 6.8 HGB= 8.6 PLTs= 116K Na= 140 K= 4.4 CL= 97 HCO3= 27 BUN/Cr= 52/2.8 BS= 71 IMPRESSION / MAJOR PROBLEMS NOW: 1. +C Diff colitis with SBO / SB ileus? 2. ESRD on CAHD, with s/p Hyperkalemia / Uremia 3. Chronic recurrent Ascites 2 Cirrhosis (?? Cryptogenic ??) 4. Chronic A fib on AC 5. New Coagulopathy; and Chronic Thrombocytopenia on chronic steroids. PLAN: 1. Further doses of Digoxin on hold. 2. Hold Guaifenesin / DMP for now. 3. NGT decompression ongoing, awaiting official results from yesterdays evening CTAP. 4. Would avoid using Compazine ( causes constipation / intestinal obstruction ) further for any nausea. 5. Ongoing PO Vanco; no ascitic fluid analysis noted from last Paracentesis procedure. 6. Will continue to give Midodrine and Vanco enterally via NGT, holding NGT suction for at least 60-100 minutes to allow absorption. CCU Objective - Vital Signs / Intake & Output Vital Signs (Last 4 hours): Vital Signs Pulse Resp BP Pulse Ox 01/24/18 06:00 70 15 101/42 L 100 Intake and Output (Last 8hrs): Intake & Output 01/23/18 01/24/18 01/24/18 22:59 06:59 14:59 Intake Total 14 68 Output Total 1010 Balance -996 68 Weight 104 lb 6.4 oz Intake: IV 14 18 Free Water Flush 50 Output: Gastric Amount 10 Right Nares 10 Ultrafiltrate 1000 Other: # Bowel Movements 1 Critical Care Progress Note - Nutrition Nutrition: Nutrition Category Date Time Status NPO Diet [DIET] Diets 01/23/18 Dinner Active
--- NOTE | 2018-01-24 08:44 | CP.PCM.PN ---
Subjective - Date & Time of Evaluation Date of Evaluation: 01/24/18 Time of Evaluation: 09:00 - Subjective Subjective: Patient was seen and examined bedside. Feeling a little better . NGT in place with minimal output since yesterday . Had 3 small BM today , formed and passing flatus. Abdominal discomfort and distention much improved No acute issues overnight Hemodynamically stable, afebrile BP 101/42 HR 72 Saturating 99 % on 2 L O2 via NC WBC 6.8 Hgb 8.6 Had long discussion with patient's about diagnosis, test results, treatment plan.All questions answered Objective - Vital Signs/Intake and Output Vital Signs (last 24 hours): Temp Pulse Resp BP Pulse Ox 98.1 F 70 15 101/42 L 100 01/24/18 04:00 01/24/18 06:00 01/24/18 06:00 01/24/18 06:00 01/24/18 06:00 Intake and Output: 01/24/18 01/24/18 06:59 18:59 Intake Total 82 Balance 82 - Medications Medications: Current Medications Acetaminophen (Tylenol 325mg Tab) 650 mg PO Q6 PRN PRN Reason: moderate pain level 4-7 Last Admin: 01/23/18 16:25 Dose: 650 mg Digoxin (Lanoxin) 0.25 mg PO [facility] [place] Last Admin: 01/22/18 08:15 Dose: 0.25 mg Epoetin Blade (Procrit) 8,000 unit IV [facility] [place] Guaifenesin/Dextromethorphan (Mucinex-Dm 600-30 Mg) 1 tab PO BID [facility] Last Admin: 01/23/18 16:15 Dose: 1 tab Lactulose (Enulose) 20 gm PO BID PRN PRN Reason: Constipation Last Admin: 01/13/18 13:19 Dose: 20 gm Metoprolol Tartrate (Lopressor) 25 mg PO DAILY [facility] Last Admin: 01/10/18 09:12 Dose: Not Given Midodrine (Proamatine) 10 mg PO Q8 [facility] Last Admin: 01/24/18 00:07 Dose: 10 mg Multivitamins/Minerals (Therapeutic-M Tab) 1 tab PO DAILY [facility] Last Admin: 01/23/18 08:45 Dose: 1 tab Ondansetron HCl (Zofran Odt) 4 mg PO DAILY [facility] Last Admin: 01/23/18 08:46 Dose: 4 mg Ondansetron HCl (Zofran Odt) 4 mg PO Q8H PRN PRN Reason: Nausea/Vomiting Last Admin: 01/13/18 10:38 Dose: 4 mg Pantoprazole Sodium (Protonix Inj) 40 mg IVP BID [facility] Last Admin: 01/23/18 16:15 Dose: 40 mg Prednisone (Prednisone Tab) 2.5 mg PO MOFR [facility] Last Admin: 01/22/18 16:35 Dose: 2.5 mg Prochlorperazine (Compazine) 10 mg IVP Q8 PRN PRN Reason: Nausea/Vomiting Last Admin: 01/23/18 14:25 Dose: 10 mg Timolol Maleate (Timoptic 0.5% Oph Soln) 1 drop OU DAILY [facility] Last Admin: 01/23/18 08:45 Dose: 1 drop Tramadol HCl (Ultram) 50 mg PO Q12 PRN PRN Reason: Pain, moderate (4-7) Last Admin: 01/22/18 13:06 Dose: 50 mg Vancomycin HCl (Vancocin (Oral/Rectal Use)) 250 mg PO Q8 [facility] PRN Reason: Protocol Last Admin: 01/24/18 00:06 Dose: 250 mg - Labs Labs: 01/24/18 04:20 01/24/18 04:20 PT 15.9 Seconds (9.8-13.1) H 01/22/18 04:30 INR 1.4 (0.9-1.2) H 01/22/18 04:30 APTT 33.7 Seconds (25.6-37.1) 01/19/18 04:20 - Constitutional Appears: Non-toxic, No Acute Distress, Chronically Ill - Head Exam Head Exam: ATRAUMATIC, NORMAL INSPECTION, NORMOCEPHALIC - Eye Exam Eye Exam: EOMI, Normal appearance, PERRL Pupil Exam: NORMAL ACCOMODATION - ENT Exam ENT Exam: Mucous Membranes Dry, Normal Exam Additional comments: NGT in place - Neck Exam Neck Exam: Full ROM, Normal Inspection - Respiratory Exam Respiratory Exam: Clear to Ausculation Bilateral, NORMAL BREATHING PATTERN. absent: Rales, Rhonchi, Wheezes, Respiratory Distress - Cardiovascular Exam Cardiovascular Exam: REGULAR RHYTHM, RRR, +S1, +S2. absent: JVD - GI/Abdominal Exam GI & Abdominal Exam: Soft, Normal Bowel Sounds. absent: Distended, Guarding, Tenderness, Rebound - Rectal Exam Rectal Exam: Deferred - Extremities Exam Extremities Exam: Full ROM, Normal Capillary Refill, Normal Inspection. absent : Pedal Edema - Neurological Exam Neurological Exam: Alert, Awake, CN II-XII Intact, Oriented x3 - Psychiatric Exam Psychiatric exam: Normal Affect - Skin Skin Exam: Dry, Pallor, Warm Assessment and Plan - Assessment and Plan (Free Text) Assessment: 77 y/o lady with Hx of ESRD on HD, Cirrhosis with ascites requiring at least 2x per month Paracentesis, was brought in because of abdominal pain. Patient missed her dialysis because of the pain. In the ED patient was noted to be slightly hypotensive with BP in the 80 systolic and her Lactate was elevated at 2.4 She was then admitted to ICU and started on Levophed. CT of the abdomen showed 1. Cirrhosis of liver, large abdominal and pelvic ascites. 2. Small loculated right pleural effusion with pleural calcifications. 3. Stable noncalcified nodules in the right lower lobe, the largest measures 8 mm. In a low risk patient follow-up in 12 month interval and in a high-risk patient follow-up in six-month interval is recommended to assess stability 4. Cholelithiasis. 5. Polycystic kidneys. Her stool work up reported positive for C.diff and she was started on Vanco Po. Received IV albumin and HD. Eliquis kept on hold in preparation for abdominal paracentesis. Due to elevated INR up to 3.4 abdominal Paracentesis was not performed given the high risk for bleeding . FFP and Vitamin K given to correct coagulopathy. During this hospital stay she developed multiple coffee ground episodes of vomiting so NGT was placed , started Protonix BID, GI consulted and was transfused with PRBC due to acute blood loss anemia.Family opted against EGD.NGT wsa removed and patient started on PO intakre and tolerated . Abdominal parasenthesis performed 01/22 with removal of 4.3 L of ascitic fluid . 01/23 developed worsening abdominal pain with nausea and vomiting . CT abdomen showed high grade SBO. NGT placed and surgery consulted At present doing better, NGT with no output , abdomen is soft, passing flatus and had BM Will remove NGT and start liquid diet 1. High grade SBO Ct abdomen showed Distal high-grade small bowel obstruction. No discrete obstructing lesion identified. This represents a new finding compared to the prior CT scan.Large volume ascites despite recent paracentesis.Cholelithiasis without CT evidence of acute cholecystitis. Cirrhotic appearing liver without focal abnormality Surgery consulted NGT with minimal output and patient able to pass flatus and have BM Will d/c NGt and start liquid diet promote ambulation Continue Protonix discontinued TIgan , Guanefesine 2. Anemia of acute blood loss secondary to upper GI bleed on chronic anemia of kidney disease Hgb dropped to 6.4 , Hgb now 8.6 post transfusion of 2 units PRBC No more episodes of GI bleed Continue Protonix BID GI on board. Family opted against EGD for now Zofran for nausea Eliquis held on Epopoetin Remove NGt today 3. Coagulopathy Most likely secondary to liver cirrhosis Transfused 6 unit FFP , given Vitamin K INR 1.4 4. ESRD on HD with Hyperkalemia secondary to missed HD on admission Nephrology following pt cont TIW HD cont Renagel had HD yesterday 01/23 5. C. Diff colitis Stool positive for Toxin and Ag received Vanco PO for 10 days Repeat C.diff is negative Discussed with ID . will d/c Vanco 6. 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 Orthostatic Hypotension pt has low baseline BP and is on Midodrine at home on Midodrine to 10 mg TID Called her psychiatric security nurse Dr. Bui Continue Albumin IV PRN 8. Chronic A Fib rate controlled on digoxin Eliquis on hold due to GIB 9. Elevated Digoxin levels Hold Digoxin for now Continue HD 10. DVT prophylaxis SCD Eliquis on hold
--- NOTE | 2018-01-24 08:53 | CT ---
PROCEDURE: CT Abdomen and Pelvis without intravenous contrast HISTORY: Small bowel obstruction. Relevant interventional procedure(s): 01/22/2018 paracentesis with retrieval of 4.3 L of fluid COMPARISON: January 23, 2018. Abdominal series. 01/09/2018 CT abdomen and pelvis TECHNIQUE: Unenhanced study. Neither oral nor intravenous contrast administered. Radiation dose: Total exam DLP = 440.76 mGy-cm. This CT exam was performed using one or more of the following dose reduction techniques: Automated exposure control, adjustment of the mA and/or kV according to patient size, and/or use of iterative reconstruction technique. FINDINGS: LOWER THORAX: Trace bilateral pleural effusions and underlying consolidative changes the lung bases similar finding seen on the prior study. LIVER: Cirrhotic liver without focal mass. GALLBLADDER AND BILE DUCTS: Cholelithiasis without CT evidence of acute cholecystitis. PANCREAS: Unremarkable. No gross lesion or ductal dilatation. SPLEEN: Unremarkable. ADRENALS: Unremarkable. No mass. KIDNEYS AND URETERS: No significant interval change compared to the prior examination(s). Enlarged kidneys, polycystic kidney disease. VASCULATURE: Unremarkable. No aortic aneurysm. BOWEL: Distended stomach despite the presence of satisfactorily positioned nasogastric tube. Distal small bowel obstruction. The precise transition point right lower quadrant is not identified. Decompressed small bowel however identified. APPENDIX: A normal appendix is not visualized PERITONEUM: Potential intra-abdominal and pelvic ascites remains following paracentesis. LYMPH NODES: Unremarkable. No enlarged lymph nodes. BLADDER: Unremarkable. REPRODUCTIVE: Unremarkable. BONES: No acute fracture. OTHER FINDINGS: Diffuse anasarca IMPRESSION: Distal high-grade small bowel obstruction. No discrete obstructing lesion identified. This represents a new finding compared to the prior CT scan. Large volume ascites despite recent paracentesis. Cholelithiasis without CT evidence of acute cholecystitis. Cirrhotic appearing liver without focal abnormality Additional benign and/or incidental findings described above. Concordant results (preliminary interpretation) provided by [facility]. Procedure Completed: 18:42 Preliminary ([facility]) Report: Dictated and Authenticated: 20:11 Final Interpretation: 08:51 January 24, 2018.
[2018-01-24] MEDS: Multivitamin With Minerals Tab PO SCH (10:04)
--- NOTE | 2018-01-24 12:58 | CP.PCM.PN ---
Subjective - Date & Time of Evaluation Date of Evaluation: 01/24/18 Time of Evaluation: 12:56 - Subjective Subjective: Patient and bed she appeared to be comfortable. Patient awake and conscious No nausea or vomiting No shortness of breath Objective - Vital Signs/Intake and Output Vital Signs (last 24 hours): Temp Pulse Resp BP Pulse Ox 98.3 F 70 12 86/31 L 100 01/24/18 12:00 01/24/18 12:00 01/24/18 12:00 01/24/18 12:00 01/24/18 12:00 Intake and Output: 01/24/18 01/24/18 06:59 18:59 Intake Total 82 Balance 82 - Medications Medications: Current Medications Acetaminophen (Tylenol 325mg Tab) 650 mg PO Q6 PRN PRN Reason: moderate pain level 4-7 Last Admin: 01/23/18 16:25 Dose: 650 mg Digoxin (Lanoxin) 0.25 mg PO [facility] [place] Last Admin: 01/22/18 08:15 Dose: 0.25 mg Epoetin Blade (Procrit) 8,000 unit IV [facility] [place] Guaifenesin/Dextromethorphan (Mucinex-Dm 600-30 Mg) 1 tab PO BID [facility] Last Admin: 01/23/18 16:15 Dose: 1 tab Lactulose (Enulose) 20 gm PO BID PRN PRN Reason: Constipation Last Admin: 01/13/18 13:19 Dose: 20 gm Metoprolol Tartrate (Lopressor) 25 mg PO DAILY [facility] Last Admin: 01/10/18 09:12 Dose: Not Given Midodrine (Proamatine) 10 mg PO Q8 [facility] Last Admin: 01/24/18 10:03 Dose: 10 mg Multivitamins/Minerals (Therapeutic-M Tab) 1 tab PO DAILY [facility] Last Admin: 01/24/18 10:04 Dose: 1 tab Ondansetron HCl (Zofran Odt) 4 mg PO DAILY [facility] Last Admin: 01/24/18 10:05 Dose: 4 mg Ondansetron HCl (Zofran Odt) 4 mg PO Q8H PRN PRN Reason: Nausea/Vomiting Last Admin: 01/13/18 10:38 Dose: 4 mg Pantoprazole Sodium (Protonix Inj) 40 mg IVP BID [facility] Last Admin: 01/24/18 10:04 Dose: 40 mg Prednisone (Prednisone Tab) 2.5 mg PO MOFR [facility] Last Admin: 01/22/18 16:35 Dose: 2.5 mg Prochlorperazine (Compazine) 10 mg IVP Q8 PRN PRN Reason: Nausea/Vomiting Last Admin: 01/23/18 14:25 Dose: 10 mg Timolol Maleate (Timoptic 0.5% Ophth Soln) 1 drop OU DAILY [facility] Last Admin: 01/24/18 10:04 Dose: 1 drop Tramadol HCl (Ultram) 50 mg PO Q12 PRN PRN Reason: Pain, moderate (4-7) Last Admin: 01/22/18 13:06 Dose: 50 mg Vancomycin HCl (Vancocin (Oral/Rectal Use)) 250 mg PO Q8 [facility] PRN Reason: Protocol Last Admin: 01/24/18 10:04 Dose: 250 mg - Labs Labs: 01/24/18 04:20 01/24/18 04:20 PT 15.9 Seconds (9.8-13.1) H 01/22/18 04:30 INR 1.4 (0.9-1.2) H 01/22/18 04:30 APTT 33.7 Seconds (25.6-37.1) 01/19/18 04:20 - Constitutional Appears: No Acute Distress - Eye Exam Eye Exam: Conjunctival injection - ENT Exam ENT Exam: Mucous Membranes Moist - Neck Exam Neck Exam: absent: Lymphadenopathy - Respiratory Exam Respiratory Exam: Rhonchi. absent: Chest Wall Tenderness - Cardiovascular Exam Cardiovascular Exam: Irregular Rhythm. absent: Gallop, JVD, Rubs - GI/Abdominal Exam GI & Abdominal Exam: Soft, Normal Bowel Sounds - Extremities Exam Extremities Exam: absent: Calf Tenderness - Back Exam Back Exam: absent: CVA tenderness (L), CVA tenderness (R) - Neurological Exam Neurological Exam: Alert - Psychiatric Exam Psychiatric exam: Normal Affect - Skin Skin Exam: absent: Cyanosis Assessment and Plan (1) Abdominal pain Status: Acute (2) Ascites Status: Acute (3) ESRD (end stage renal disease) on dialysis Assessment & Plan: End stage renal disease patient tolerating dialysis yesterday Vital signs stable Electrolyte and kidney function are stable The rest of the medical problem has been primary team. #2 ascitis status post paracentesis previously #3 abdominal pain improving somewhat #4 chf history and volume overloaded. #5 H/O pericardial effusion, #6 hypotension #7 hypoalbuminemia patient need nutritional counseling with the dietitian. #8 history of hyperphosphatemia and secondary hyperparathyroidism #9 debility Status: Acute
--- NOTE | 2018-01-24 17:48 | CP.PCM.PN ---
Subjective - Date & Time of Evaluation Date of Evaluation: 01/24/18 Time of Evaluation: 11:30 - Subjective Subjective: General Surgery Note for Dr. Robledo Patient seen and examined. No acute event overnight. Patient still has abdominal pain. He states she had a small BM today. NGT with 10 cc over 12 hrs. Objective - Vital Signs/Intake and Output Vital Signs (last 24 hours): Temp Pulse Resp BP Pulse Ox 98.0 F 70 12 112/45 L 100 01/24/18 16:00 01/24/18 16:00 01/24/18 16:00 01/24/18 16:00 01/24/18 16:00 Intake and Output: 01/24/18 01/24/18 06:59 18:59 Intake Total 82 50 Balance 82 50 - Medications Medications: Current Medications Acetaminophen (Tylenol 325mg Tab) 650 mg PO Q6 PRN PRN Reason: moderate pain level 4-7 Last Admin: 01/23/18 16:25 Dose: 650 mg Digoxin (Lanoxin) 0.25 mg PO F [facility] Last Admin: 01/22/18 08:15 Dose: 0.25 mg Epoetin Blade (Procrit) 8,000 unit IV [facility] [place] Guaifenesin/Dextromethorphan (Mucinex-Dm 600-30 Mg) 1 tab PO BID [facility] Last Admin: 01/23/18 16:15 Dose: 1 tab Lactulose (Enulose) 20 gm PO BID PRN PRN Reason: Constipation Last Admin: 01/13/18 13:19 Dose: 20 gm Metoprolol Tartrate (Lopressor) 25 mg PO DAILY [facility] Last Admin: 01/10/18 09:12 Dose: Not Given Midodrine (Proamatine) 10 mg PO Q8 [facility] Last Admin: 01/24/18 17:00 Dose: 10 mg Multivitamins/Minerals (Therapeutic-M Tab) 1 tab PO DAILY [facility] Last Admin: 01/24/18 10:04 Dose: 1 tab Ondansetron HCl (Zofran Odt) 4 mg PO DAILY [facility] Last Admin: 01/24/18 10:05 Dose: 4 mg Ondansetron HCl (Zofran Odt) 4 mg PO Q8H PRN PRN Reason: Nausea/Vomiting Last Admin: 01/13/18 10:38 Dose: 4 mg Pantoprazole Sodium (Protonix Inj) 40 mg IVP BID [facility] Last Admin: 01/24/18 17:01 Dose: 40 mg Prednisone (Prednisone Tab) 2.5 mg PO MOFR [facility] Last Admin: 01/22/18 16:35 Dose: 2.5 mg Prochlorperazine (Compazine) 10 mg IVP Q8 PRN PRN Reason: Nausea/Vomiting Last Admin: 01/23/18 14:25 Dose: 10 mg Timolol Maleate (Timoptic 0.5% Ophth Soln) 1 drop OU DAILY [facility] Last Admin: 01/24/18 10:04 Dose: 1 drop Tramadol HCl (Ultram) 50 mg PO Q12 PRN PRN Reason: Pain, moderate (4-7) Last Admin: 01/22/18 13:06 Dose: 50 mg Vancomycin HCl (Vancocin (Oral/Rectal Use)) 250 mg PO Q8 JOAQUIN PRN Reason: Protocol Last Admin: 01/24/18 17:02 Dose: 250 mg - Labs Labs: 01/24/18 04:20 01/24/18 04:20 PT 15.9 Seconds (9.8-13.1) H 01/22/18 04:30 INR 1.4 (0.9-1.2) H 01/22/18 04:30 APTT 33.7 Seconds (25.6-37.1) 01/19/18 04:20 - Constitutional Appears: No Acute Distress - ENT Exam Additional comments: NGT in place - Respiratory Exam Respiratory Exam: NORMAL BREATHING PATTERN - Cardiovascular Exam Cardiovascular Exam: REGULAR RHYTHM - GI/Abdominal Exam GI & Abdominal Exam: Distended, Soft, Tenderness (mild). absent: Guarding, Rigid, Rebound - Neurological Exam Neurological Exam: Alert, Awake - Psychiatric Exam Psychiatric exam: Flat Affect - Skin Skin Exam: Dry, Warm Assessment and Plan - Assessment and Plan (Free Text) Plan: 77F with abdominal pain likely 2/[address] - normal caliber small bowel, large amount of ascites - Attempt Clear liquid diet, ADAT - Manage Ascites - Monitor for bowel function - No surgical intervention needed at this time - Further recs discuss with Dr. Venkat Gambino PGY1
[2018-01-25 06:33] LABS: HEMOGLOBIN 8.9 g/dL (12.0-16.0); MEAN CELL VOLUME 97.6 fl (81.0-99.0); MEAN CORPUSCULAR HEMOGLOBIN 31.4 pg (27.0-31.0); MEAN CORPUSCULAR HGB CONC 32.2 g/dL (33.0-37.0); RBC 2.85 Mil/uL (3.80-5.20); RED CELL DISTRIBUTION WIDTH 16.8 % (11.5-14.5); WHITE BLOOD COUNT 6.9 K/uL (4.8-10.8)
[2018-01-25 06:53] LABS: CALCIUM 7.2 mg/dL (8.4-10.2)
[2018-01-25 07:23] VITALS: O2SAT 100
[2018-01-25] MEDS: Multivitamin With Minerals Tab PO SCH (08:45)
--- NOTE | 2018-01-25 08:53 | CP.PCM.PN ---
Subjective - Date & Time of Evaluation Date of Evaluation: 01/25/18 Time of Evaluation: 08:00 - Subjective Subjective: Patient seen and examined bedside.Did not sleep well last night. NGT removed and tolerated diet. No more nausea or vomiting . Minimal Left lower quadrant tenderness had small BM BP stable 109/44 HR 70 , afib WBC 6.9 Hgb 8.9 digoxin 3,3 Objective - Vital Signs/Intake and Output Vital Signs (last 24 hours): Temp Pulse Resp BP Pulse Ox 98.6 F 70 20 109/44 L 100 01/25/18 04:00 01/25/18 06:00 01/25/18 06:00 01/25/18 06:00 01/25/18 06:00 Intake and Output: 01/25/18 01/25/18 06:59 18:59 Intake Total 100 Output Total 0 Balance 100 - Medications Medications: Current Medications Acetaminophen (Tylenol 325mg Tab) 650 mg PO Q6 PRN PRN Reason: moderate pain level 4-7 Last Admin: 01/25/18 04:54 Dose: 650 mg Digoxin (Lanoxin) 0.25 mg PO MWF [facility] Last Admin: 01/22/18 08:15 Dose: 0.25 mg Epoetin Blade (Procrit) 8,000 unit IV [facility] [place] Guaifenesin/Dextromethorphan (Mucinex-Dm 600-30 Mg) 1 tab PO BID [facility] Last Admin: 01/23/18 16:15 Dose: 1 tab Lactulose (Enulose) 20 gm PO BID PRN PRN Reason: Constipation Last Admin: 01/13/18 13:19 Dose: 20 gm Metoprolol Tartrate (Lopressor) 25 mg PO DAILY [facility] Last Admin: 01/10/18 09:12 Dose: Not Given Midodrine (Proamatine) 10 mg PO Q8 [facility] Last Admin: 01/25/18 08:33 Dose: 10 mg Multivitamins/Minerals (Therapeutic-M Tab) 1 tab PO DAILY [facility] Last Admin: 01/25/18 08:45 Dose: 1 tab Ondansetron HCl (Zofran Odt) 4 mg PO DAILY [facility] Last Admin: 01/25/18 08:34 Dose: 4 mg Ondansetron HCl (Zofran Odt) 4 mg PO Q8H PRN PRN Reason: Nausea/Vomiting Last Admin: 01/13/18 10:38 Dose: 4 mg Pantoprazole Sodium (Protonix Inj) 40 mg IVP BID [facility] Last Admin: 01/25/18 08:34 Dose: 40 mg Prednisone (Prednisone Tab) 2.5 mg PO MOFR [facility] Last Admin: 01/22/18 16:35 Dose: 2.5 mg Prochlorperazine (Compazine) 10 mg IVP Q8 PRN PRN Reason: Nausea/Vomiting Last Admin: 01/23/18 14:25 Dose: 10 mg Timolol Maleate (Timoptic 0.5% Ophth Soln) 1 drop OU DAILY [facility] Last Admin: 01/25/18 08:34 Dose: 1 drop Tramadol HCl (Ultram) 50 mg PO Q12 PRN PRN Reason: Pain, moderate (4-7) Last Admin: 01/22/18 13:06 Dose: 50 mg - Labs Labs: 01/25/18 06:30 01/25/18 06:30 PT 15.9 Seconds (9.8-13.1) H 01/22/18 04:30 INR 1.4 (0.9-1.2) H 01/22/18 04:30 APTT 33.7 Seconds (25.6-37.1) 01/19/18 04:20 - Constitutional Appears: No Acute Distress, Chronically Ill - Head Exam Head Exam: ATRAUMATIC, NORMAL INSPECTION, NORMOCEPHALIC - Eye Exam Eye Exam: EOMI, Normal appearance, PERRL Pupil Exam: NORMAL ACCOMODATION - ENT Exam ENT Exam: Mucous Membranes Moist, Normal Exam - Neck Exam Neck Exam: Normal Inspection - Respiratory Exam Respiratory Exam: Clear to Ausculation Bilateral, NORMAL BREATHING PATTERN. absent: Rales, Rhonchi, Wheezes - Cardiovascular Exam Cardiovascular Exam: Irregular Rhythm. absent: JVD - GI/Abdominal Exam GI & Abdominal Exam: Soft, Tenderness (left lower quadrant ), Normal Bowel Sounds. absent: Distended, Guarding, Rebound - Rectal Exam Rectal Exam: Deferred - Extremities Exam Extremities Exam: Full ROM, Normal Inspection. absent: Pedal Edema - Back Exam Back Exam: NORMAL INSPECTION - Neurological Exam Neurological Exam: Alert, Awake, CN II-XII Intact, Oriented x3 - Psychiatric Exam Psychiatric exam: Normal Affect - Skin Skin Exam: Dry, Pallor, Warm Assessment and Plan - Assessment and Plan (Free Text) Assessment: 77 y/o lady with Hx of ESRD on HD, Cirrhosis with ascites requiring at least 2x per month Paracentesis, was brought in because of abdominal pain. Patient missed her dialysis because of the pain. In the ED patient was noted to be slightly hypotensive with BP in the 80 systolic and her Lactate was elevated at 2.4 She was then admitted to ICU and started on Levophed. CT of the abdomen showed 1. Cirrhosis of liver, large abdominal and pelvic ascites. 2. Small loculated right pleural effusion with pleural calcifications. 3. Stable noncalcified nodules in the right lower lobe, the largest measures 8 mm. In a low risk patient follow-up in 12 month interval and in a high-risk patient follow-up in six-month interval is recommended to assess stability 4. Cholelithiasis. 5. Polycystic kidneys. Her stool work up reported positive for C.diff and she was started on Vanco Po. Received IV albumin and HD. Eliquis kept on hold in preparation for abdominal paracentesis. Due to elevated INR up to 3.4 abdominal Paracentesis was not performed given the high risk for bleeding . FFP and Vitamin K given to correct coagulopathy. During this hospital stay she developed multiple coffee ground episodes of vomiting so NGT was placed , started Protonix BID, GI consulted and was transfused with PRBC due to acute blood loss anemia.Family opted against EGD.NGT wsa removed and patient started on PO intakre and tolerated . Abdominal parasenthesis performed 01/22 with removal of 4.3 L of ascitic fluid . 01/23 developed worsening abdominal pain with nausea and vomiting . CT abdomen showed high grade SBO. NGT placed and surgery consulted At present doing better, NGT removed, abdomen is soft, passing flatus and had BM Tolerating diet 1. High grade SBO-- resolved Ct abdomen showed Distal high-grade small bowel obstruction. No discrete obstructing lesion identified. This represents a new finding compared to the prior CT scan.Large volume ascites despite recent paracentesis.Cholelithiasis without CT evidence of acute cholecystitis. Cirrhotic appearing liver without focal abnormality Surgery consulted removed NGT and started diet yesterday. Tolerating well with no nausea or vomiting Continue Protonix 2. Anemia of acute blood loss secondary to upper GI bleed on chronic anemia of kidney disease Hgb dropped to 6.4 with occult blood positive post transfusion of 2 units PRBC with Hgb 9.5 at present No more episodes of GI bleed Continue Protonix BID GI on board. Family opted against EGD for now Eliquis held due to high risk of life threatening bleeding on Epopoetin 3. Coagulopathy Most likely secondary to liver cirrhosis Transfused 6 unit FFP , given Vitamin K INR 1.4 4. ESRD on HD with Hyperkalemia secondary to missed HD on admission Nephrology following pt continue with HD For HD today cont Renagel 5. C. Diff colitis Stool positive for Toxin and Ag received Vanco PO for 10 days Repeat C.diff is negative Discussed with ID . will d/c Vanco 6. 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 Orthostatic Hypotension pt has low baseline BP and is on Midodrine at home on Midodrine to 10 mg TID Called her rehabilitation therapist Dr. Bui Albumin IV PRN 8. Chronic A Fib rate controlled Will need to d/c [place] since patient has liver cirrhosis with coagulopathy and GI bleed .She is at high risk for life threatening bleeding Decrease Digoxin dose from 0.25 mg to 0.125 mg every other day, MWF since digoxin levels are very elevated 3.3 9. Elevated Digoxin levels Hold Digoxin for now decrease Dose from 0.25 mg to 0.125 mg MWF Continue HD 10. DVT prophylaxis SCD
--- NOTE | 2018-01-25 10:22 | CP.PCM.PN ---
Subjective - Date & Time of Evaluation Date of Evaluation: 01/25/18 Time of Evaluation: 10:20 - Subjective Subjective: Dialysis note She was seen on hemodialysis now, right upper arm AV fistula. Patient is awake and conscious blood pressure systolic in the range of 90-95 25% albumin was ordered to be given now. Minimal abdominal pain Objective - Vital Signs/Intake and Output Vital Signs (last 24 hours): Temp Pulse Resp BP Pulse Ox 99.4 F 71 10 L 119/50 L 100 01/25/18 08:00 01/25/18 08:00 01/25/18 08:00 01/25/18 08:00 01/25/18 08:00 Intake and Output: 01/25/18 01/25/18 06:59 18:59 Intake Total 100 Output Total 0 Balance 100 - Medications Medications: Current Medications Acetaminophen (Tylenol 325mg Tab) 650 mg PO Q6 PRN PRN Reason: moderate pain level 4-7 Last Admin: 01/25/18 04:54 Dose: 650 mg Digoxin (Lanoxin) 0.25 mg PO [facility] [place] Last Admin: 01/22/18 08:15 Dose: 0.25 mg Epoetin Blade (Procrit) 8,000 unit IV [facility] [place] Guaifenesin/Dextromethorphan (Mucinex-Dm 600-30 Mg) 1 tab PO BID [facility] Last Admin: 01/23/18 16:15 Dose: 1 tab Lactulose (Enulose) 20 gm PO BID PRN PRN Reason: Constipation Last Admin: 01/13/18 13:19 Dose: 20 gm Metoprolol Tartrate (Lopressor) 25 mg PO DAILY [facility] Last Admin: 01/10/18 09:12 Dose: Not Given Midodrine (Proamatine) 10 mg PO Q8 [facility] Last Admin: 01/25/18 08:33 Dose: 10 mg Multivitamins/Minerals (Therapeutic-M Tab) 1 tab PO DAILY [facility] Last Admin: 01/25/18 08:45 Dose: 1 tab Ondansetron HCl (Zofran Odt) 4 mg PO DAILY [facility] Last Admin: 01/25/18 08:34 Dose: 4 mg Ondansetron HCl (Zofran Odt) 4 mg PO Q8H PRN PRN Reason: Nausea/Vomiting Last Admin: 01/13/18 10:38 Dose: 4 mg Pantoprazole Sodium (Protonix Inj) 40 mg IVP BID [facility] Last Admin: 01/25/18 08:34 Dose: 40 mg Prednisone (Prednisone Tab) 2.5 mg PO MOFR [facility] Last Admin: 01/22/18 16:35 Dose: 2.5 mg Prochlorperazine (Compazine) 10 mg IVP Q8 PRN PRN Reason: Nausea/Vomiting Last Admin: 01/23/18 14:25 Dose: 10 mg Timolol Maleate (Timoptic 0.5% Ophth Soln) 1 drop OU DAILY [facility] Last Admin: 01/25/18 08:34 Dose: 1 drop Tramadol HCl (Ultram) 50 mg PO Q12 PRN PRN Reason: Pain, moderate (4-7) Last Admin: 01/22/18 13:06 Dose: 50 mg - Labs Labs: 01/25/18 06:30 01/25/18 06:30 PT 15.9 Seconds (9.8-13.1) H 01/22/18 04:30 INR 1.4 (0.9-1.2) H 01/22/18 04:30 APTT 33.7 Seconds (25.6-37.1) 01/19/18 04:20 - Constitutional Appears: No Acute Distress - Eye Exam Eye Exam: Conjunctival injection - ENT Exam ENT Exam: Mucous Membranes Moist - Neck Exam Neck Exam: absent: Lymphadenopathy - Respiratory Exam Respiratory Exam: Rhonchi - Cardiovascular Exam Cardiovascular Exam: Irregular Rhythm. absent: JVD, Rubs - GI/Abdominal Exam GI & Abdominal Exam: Soft, Normal Bowel Sounds. absent: Guarding - Extremities Exam Extremities Exam: absent: Calf Tenderness - Back Exam Back Exam: absent: CVA tenderness (L), CVA tenderness (R) - Neurological Exam Neurological Exam: Alert - Psychiatric Exam Psychiatric exam: Normal Affect - Skin Skin Exam: absent: Cyanosis Assessment and Plan (1) Abdominal pain Status: Acute (2) Ascites Status: Acute (3) ESRD (end stage renal disease) on dialysis Assessment & Plan: End stage renal disease Patient on dialysis about how I did discuss with the dialysis nurse. Albumin up and running to maintain blood pressure around 90 systolic. Sodium bath 138 Potassium bath 2 mEq Bicarbonate bath 34 Ultrafiltration 1500 mL as tolerated The rest of the medical problem as per the primary team: The rest of the medical problem has been primary team. #2 ascitis status post paracentesis previously #3 abdominal pain improving somewhat #4 chf history and volume overloaded.improving #5 H/O pericardial effusion, #6 hypotension #7 hypoalbuminemia patient need nutritional counseling with the dietitian. #8 history of hyperphosphatemia and secondary hyperparathyroidism #9 debility Status: Acute
[2018-01-25] MEDS ORDERED: Albumin Human 25% (12.5 gm/50 ml) IV ONE (10:28)
--- NOTE | 2018-01-25 13:46 | CP.CCUPN ---
CCU Subjective - Physician Review Subjective (Free Text): Awake and responsive, NGT removed yesterday afternoon and tolerating liquid diet without nausea or vomiting. Undergoing routine HD this AM now. Other Vitals and I/Os reviewed. Rhythm is primarily paced at 70/min with occasional escape beats. ROS: No other pertinent negs or positives on 10+ system review PMSFH: All other Nursing and physician documentation reviewed to date; no new pertinent info noted relevant to current medical problems. EXAM- HEENT: no icterus, no gaze preference, pupils equal and reactive, no icterus NECK: No JVD, supple, carotids equal upstroke bilat/no bruits CHEST: decreased BS bases, no wheezes audible HEART: regular distant, S1S2, no rubs. ABD: soft, +distention, no tympany, no palp tenderness, BS hypoactive. EXT: trace edema bilat. No peripheral/ digital cyanosis, no calf tenderness or palpable cords, distal pulses intact and symmetrical. RUE AV shunt with good bruit and thrill. NEURO: no gross focal motor deficits. SKIN: no rashes, warm and dry. LABS: Coags: INR 1.4 on 01/22/18 Digoxin = 3.3 again today. WBC= 6.9 HGB= 8.9 PLTs= 154K Na= 138 K= 4.8 CL= 97 HCO3= 25 BUN/Cr= 74/3.7 BS= 58 IMPRESSION / MAJOR PROBLEMS NOW: 1. +C Diff colitis with SBO / SB ileus? 2. ESRD on CAHD, with s/p Hyperkalemia / Uremia 3. Chronic recurrent Ascites 2 Cirrhosis (?? Cryptogenic ??) 4. Chronic A fib on AC 5. New Coagulopathy; and Chronic Thrombocytopenia on chronic steroids. PLAN: 1. Further doses of Digoxin on hold. Since Digoxin clearance cannot be achieved today while on HD, if persistently bradycardic and paced or if nausea recurs, consider Digibind. 2. Discussed with hospitalist team: agree with withholding further AC with Guy. Patient is auto-anticoagulated to a certain degree and required reversal due to recent life-threatening GI bleed. Will discuss with Cardiology. 3. Follow serial AXR to assess bowel patterns if abdominal distention worsens. Paracentesis done 4 days ago. Having +BMs. 4. Clarify any Advance Directives. CCU Objective - Vital Signs / Intake & Output Vital Signs (Last 4 hours): Vital Signs Temp Pulse Resp BP Pulse Ox 01/25/18 12:00 97.9 F 70 18 80/37 L 100 01/25/18 11:35 66 14 115/52 L 100 01/25/18 10:00 70 17 74/39 L 100 Intake and Output (Last 8hrs): Intake & Output 01/24/18 01/25/18 01/25/18 22:59 06:59 14:59 Intake Total 150 100 Output Total 200 0 Balance -50 100 Weight 104 lb Intake: Oral 150 100 Output: Gastric Amount 200 Right Nares 200 Urine/Stool Mix 0 0 Other: # Bowel Movements 1 0
--- NOTE | 2018-01-26 09:15 | CP.PCM.DIS ---
Provider - Provider Date of Admission: 01/09/18 09:00 Attending physician: David Kiran MD Primary care physician: Jose Snyder MD Consults: Nephrology : Dr Gutiérrez Cardio: Dr Heath GI : Dr Lea ID: Dr Maxwell Surgery : Dr Robledo Time Spent in preparation of Discharge (in minutes): 35 Diagnosis - Discharge Diagnosis (1) Abdominal pain Status: Acute Priority: High (2) Ascites Status: Chronic Priority: High (3) Atrial fibrillation Status: Acute (4) C. difficile diarrhea Status: Acute (5) ESRD (end stage renal disease) on dialysis Status: Chronic Priority: High (6) GI bleed Status: Acute (7) Hyperkalemia Status: Acute (8) Digoxin toxicity Status: Acute (9) SBO (small bowel obstruction) Status: Acute (10) Coagulopathy Status: Acute (11) Cirrhosis of liver with ascites Status: Chronic Hospital Course - Lab Results Lab Results: Micro Results 01/15/18 18:00 Blood-Thru Central Line Blood Culture - Final NO GROWTH AFTER 5 DAYS 01/15/18 18:00 Blood-Thru Central Line Gram Stain - Final TEST NOT PERFORMED 01/10/18 14:12 Ascitic Fluid Gram Stain - Final 01/10/18 14:12 Ascitic Fluid Body Fluid Culture - Final No growth. 01/09/18 03:15 Blood-Venous Blood Culture - Final NO GROWTH AFTER 5 DAYS 01/09/18 03:15 Blood-Venous Gram Stain - Final TEST NOT PERFORMED 01/09/18 03:33 Blood-Venous Blood Culture - Final NO GROWTH AFTER 5 DAYS 01/09/18 03:33 Blood-Venous Gram Stain - Final TEST NOT PERFORMED 01/09/18 18:36 Naris MRSA Culture (Admit) - Final MRSA NOT DETECTED Most Recent Lab Values WBC 6.9 K/uL (4.8-10.8) 01/25/18 06:30 RBC 2.85 Mil/uL (3.80-5.20) L 01/25/18 06:30 Hgb 8.9 g/dL (12.0-16.0) L 01/25/18 06:30 Hct 27.8 % (34.0-47.0) L 01/25/18 06:30 MCV 97.6 fl (81.0-99.0) 01/25/18 06:30 MCH 31.4 pg (27.0-31.0) H 01/25/18 06:30 MCHC 32.2 g/dL (33.0-37.0) L 01/25/18 06:30 RDW 16.8 % (11.5-14.5) H 01/25/18 06:30 Plt Count 154 K/uL (130-400) 01/25/18 06:30 MPV 9.2 fl (7.2-11.7) 01/15/18 16:54 Neut % (Auto) 81.7 % (50.0-75.0) H 01/15/18 16:54 Lymph % (Auto) 3.7 % (20.0-40.0) L 01/15/18 16:54 [place] % (Auto) 14.2 % (0.0-10.0) H 01/15/18 16:54 Eos % (Auto) 0.4 % (0.0-4.0) 01/15/18 16:54 Baso % (Auto) 0.0 % (0.0-2.0) 01/15/18 16:54 Neut # (Auto) 3.2 K/uL (1.8-7.0) 01/15/18 16:54 Lymph # (Auto) 0.1 K/uL (1.0-4.3) L 01/15/18 16:54 [place] # (Auto) 0.6 K/uL (0.0-0.8) 01/15/18 16:54 Eos # (Auto) 0.0 K/uL (0.0-0.7) 01/15/18 16:54 Baso # (Auto) 0.0 K/uL (0.0-0.2) 01/15/18 16:54 Neutrophils % (Manual) 86 % (42-75) H 01/15/18 16:54 Lymphocytes % (Manual) 4 % (20-50) L 01/15/18 16:54 Monocytes % (Manual) 10 % (0-10) 01/15/18 16:54 Platelet Estimate Normal (NORMAL) 01/15/18 16:54 Large Platelets Present 01/15/18 16:54 Hypochromasia (manual) Slight 01/09/18 03:30 Poikilocytosis (manual Slight 01/12/18 05:10 Anisocytosis (manual) Slight 01/15/18 16:54 Microcytosis (manual) Slight 01/15/18 16:54 Tear Drop Cells Slight 01/15/18 16:54 Ovalocytes Slight 01/15/18 16:54 [place] Cells Moderate 01/09/18 03:30 PT 15.9 Seconds (9.8-13.1) H 01/22/18 04:30 INR 1.4 (0.9-1.2) H 01/22/18 04:30 APTT 33.7 Seconds (25.6-37.1) 01/19/18 04:20 pO2 32 mm/Hg (30-55) 01/15/18 16:14 VBG pH 7.40 (7.32-7.43) 01/15/18 16:14 VBG pCO2 47 mmHg (40-60) 01/15/18 16:14 VBG HCO3 26.7 mmol/L 01/15/18 16:14 VBG Total CO2 30.5 mmol/L (22-28) H 01/15/18 16:14 VBG O2 Sat (Calc) 68.6 % (40-65) H 01/15/18 16:14 VBG Base Excess 3.5 mmol/L (0.0-2.0) H 01/15/18 16:14 VBG Potassium 3.2 mmol/L (3.6-5.2) L 01/15/18 16:14 Sodium 130.0 mmol/L (132-148) L 01/15/18 16:14 Chloride 95.0 mmol/L (98-107) L 01/15/18 16:14 Glucose 87 mg/dL (65-105) 01/15/18 16:14 Lactate 0.8 mmol/L (0.7-2.1) 01/15/18 16:14 FiO2 24.0 % 01/15/18 16:14 Crit Value Called To Dr tinoco 01/09/18 04:01 Crit Value Called By [id number] 01/09/18 04:01 Crit Value Read Back Y 01/09/18 04:01 Blood Gas Notified Time 405 01/09/18 04:01 Sodium 138 mmol/l (132-148) 01/25/18 06:30 Potassium 4.8 MMOL/L (3.6-5.0) 01/25/18 06:30 Chloride 97 mmol/L (98-107) L 01/25/18 06:30 Carbon Dioxide 25 mmol/L (22-30) 01/25/18 06:30 Anion Gap 21 (10-20) H 01/25/18 06:30 BUN 74 mg/dl (7-17) H 01/25/18 06:30 Creatinine 3.7 mg/dl (0.7-1.2) H 01/25/18 06:30 Est GFR ( Amer) 14 01/25/18 06:30 Est GFR (Non-Af Amer) 12 01/25/18 06:30 POC Glucose (mg/dL) 125 mg/dL (65-110) H 01/20/18 19:39 Random Glucose 58 mg/dL (65-105) L 01/25/18 06:30 Lactic Acid 0.8 MMOL/L (0.7-2.1) 01/17/18 04:20 Calcium 7.2 mg/dL (8.4-10.2) L 01/25/18 06:30 Phosphorus 4.6 mg/dl (2.5-4.5) H 01/15/18 04:15 Total Bilirubin 1.5 mg/dl (0.2-1.3) H 01/22/18 04:30 AST 21 U/L (14-36) 01/22/18 04:30 ALT 30 U/L (9-52) 01/22/18 04:30 Alkaline Phosphatase 114 U/L (38-126) 01/22/18 04:30 Troponin I 0.0540 ng/mL (0.00-0.120) 01/11/18 15:50 Total Protein 6.1 G/DL (6.3-8.2) L 01/22/18 04:30 Albumin 3.2 g/dL (3.5-5.0) L 01/22/18 04:30 Globulin 2.8 gm/dL (2.2-3.9) 01/22/18 04:30 Albumin/Globulin Ratio 1.1 (1.0-2.1) 01/22/18 04:30 Lipase 62 U/L (23-300) 01/15/18 16:54 Alpha Fetoprotein 1.2 IU/mL (0.0-7.22) 01/15/18 16:54 Procalcitonin 17.59 NG/ML (0.19-0.49) H 01/15/18 16:54 PTH Intact Whole Molec 51 pg/mL (14-64) 01/22/18 09:03 Venous Blood Potassium 3.2 mmol/L (3.6-5.2) L 01/15/18 16:14 Fluid Source Peritoneal/ascites 01/10/18 14:30 Fluid Appearance Clear (CLEAR) 01/10/18 14:30 Fluid WBC 47.0 /mm3 (0.0-300.0) 01/10/18 14:30 Fluid RBC 20.0 /mm3 (0.0-0.0) H 01/10/18 14:30 Fluid Tot Cell Count 100 (0-0) H 01/10/18 14:30 Fluid Neutrophils 55.0 % (0-0) H 01/10/18 14:30 Fluid Lymphocytes 20.0 % (0-0) H 01/10/18 14:30 Fld Monocyte/Macrophag 25 % (0-0) H 01/10/18 14:30 Fluid Glucose 91 mg/dL (NONE ESTABLISHED) 01/10/18 14:12 Fluid Total Protein < 2.0 g/dL (NONE ESTABLISHED) 01/10/18 14:12 Fluid LDH 524 IU (NONE ESTABLISHED) 01/10/18 14:12 Fluid Comment Yellow 01/10/18 14:30 Stool Occult Blood Positive (NEGATIVE) H 01/21/18 02:50 Digoxin 3.3 ng/mL (0.8-2.0) H* 01/25/18 06:30 C. difficile Tox B Gene Detected (Not Detected) H 01/11/18 14:56 C. difficile Ag & Toxin Negative (NEGATIVE) 01/24/18 09:00 Hep Bs Antigen Negative (NEGATIVE) 01/09/18 11:05 Hep Bs Antibody Positive (NEGATIVE) 01/09/18 11:05 Hep B Core IgM Ab Negative (NEGATIVE) 01/09/18 11:05 Hepatitis C Antibody Negative (NEGATIVE) 01/09/18 11:05 Blood Type A POSITIVE 01/17/18 08:12 Antibody Screen Negative 01/17/18 08:12 Crossmatch See Detail 01/17/18 08:12 BBK History Checked Patient has bt 01/17/18 08:12 - Hospital Course Hospital Course: 77 y/o lady with Hx of ESRD on HD, Cirrhosis with ascites requiring at least 2x per month Paracentesis, was brought in because of abdominal pain. Patient missed her dialysis because of the pain. In the ED patient was noted to be slightly hypotensive with BP in the 80 systolic and her Lactate was elevated at 2.4 She was then admitted to ICU and started on Levophed. CT of the abdomen showed 1. Cirrhosis of liver, large abdominal and pelvic ascites. 2. Small loculated right pleural effusion with pleural calcifications. 3. Stable noncalcified nodules in the right lower lobe, the largest measures 8 mm. In a low risk patient follow-up in 12 month interval and in a high-risk patient follow-up in six-month interval is recommended to assess stability 4. Cholelithiasis. 5. Polycystic kidneys. Her stool work up reported positive for C.diff and she was started on Vanco Po. Received IV albumin and HD. Eliquis kept on hold in preparation for abdominal paracentesis. Due to elevated INR up to 3.4 abdominal Paracentesis was not performed given the high risk for bleeding . FFP and Vitamin K given to correct coagulopathy. During this hospital stay she developed multiple episodes of coffee ground vomiting so NGT was placed , started Protonix BID, GI consulted. transfused with PRBC due to acute blood loss anemia. Family opted against EGD. NGT was eventually removed and patient was started on PO intake and tolerated this. Abdominal paracentesis performed 01/22 with removal of 4.3 L of ascitic fluid . 01/23 developed worsening abdominal pain with nausea and vomiting . CT abdomen showed high grade SBO. NGT placed and surgery consulted . SBO then resolved. At present doing better, NGT removed, abdomen is soft, passing flatus and had BM and tolerating PO diet. 1. High grade SBO-- resolved Ct abdomen showed Distal high-grade small bowel obstruction. No discrete obstructing lesion identified. This represents a new finding compared to the prior CT scan.Large volume ascites despite recent paracentesis.Cholelithiasis without CT evidence of acute cholecystitis. Cirrhotic appearing liver without focal abnormality Surgery consulted - NGT placed. Pt's condition improved removed now NGT and started diet. Tolerating well with no nausea or vomiting Continue Protonix 2. Anemia of acute blood loss secondary to upper GI bleed on chronic anemia of kidney disease Hgb dropped to 6.4 with occult blood positive post transfusion of 2 units PRBC with Hgb 9.5 at present No more episodes of GI bleed Continue Protonix BID GI on board. Family opted against EGD for now Eliquis held due to high risk of life threatening bleeding on Epopoetin 3. Coagulopathy Most likely secondary to liver cirrhosis Transfused 6 unit FFP , given Vitamin K INR 1.4 4. ESRD on HD with Hyperkalemia secondary to missed HD on admission Nephrology following pt continue with HD For HD today cont Renagel 5. C. Diff colitis Stool positive for Toxin and Ag received Vanco PO for 10 days Repeat C.diff is negative Discussed with ID . will d/c Vanco 6. 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 Orthostatic Hypotension pt has low baseline BP and is on Midodrine at home on Midodrine to 10 mg TID Called her security messenger Dr. Bui Albumin IV PRN given 8. Chronic A Fib rate controlled d/c Eliquis since patient has liver cirrhosis with coagulopathy and GI bleed .She is at high risk for life threatening bleeding - to ff up with Dr Bui Decrease Digoxin dose from 0.25 mg to 0.125 mg every other day, MWF since digoxin level is elevated ( 2.5) 9. Elevated Digoxin levels Hold Digoxin for now - rpt level as outpt , ff up with Dr Bui decrease Dose from 0.25 mg to 0.125 mg MWF Continue HD 10. DVT prophylaxis SCD Discharge Exam - Head Exam Head Exam: ATRAUMATIC, NORMAL INSPECTION, NORMOCEPHALIC - Eye Exam Eye Exam: EOMI, Normal appearance Pupil Exam: NORMAL ACCOMODATION - ENT Exam ENT Exam: Mucous Membranes Moist, Normal External Ear Exam - Neck Exam Neck exam: Full Rom - Respiratory Exam Respiratory Exam: NORMAL BREATHING PATTERN. absent: Respiratory Distress - Cardiovascular Exam Cardiovascular Exam: Irregular Rhythm, +S1, +S2 - GI/Abdominal Exam GI & Abdominal Exam: Distended, Normal Bowel Sounds, Soft, Tenderness Additional comments: + ascites - Extremities Exam Extremities exam: normal capillary refill, pedal pulses present - Back Exam Back exam: absent: CVA tenderness (L), CVA tenderness (R) - Neurological Exam Neurological exam: Alert, CN II-XII Intact, Oriented x3, Reflexes Normal - Psychiatric Exam Psychiatric exam: Flat Affect - Skin Skin Exam: Dry, Normal Color, Warm Discharge Plan - Discharge Medications Prescriptions: Digoxin 0.125 mg PO MWF #30 tab Digoxin [Lanoxin] 0.125 mg PO MWF #30 tab Midodrine [Proamatine] 10 mg PO TID #120 tab Midodrine [Proamatine] 10 mg PO Q8 #90 tab traMADol [Ultram] 50 mg PO Q12 PRN #10 tab PRN Reason: Pain, Moderate (4-7) - Follow Up Plan Condition: IMPROVED Disposition: HOME/ ROUTINE Instructions: Renal Failure Diet (DC), Acute Abdominal Pain (DC), Acute Abdominal Pain (GEN) Additional Instructions: INR and Digoxin level on Monday Do not start Digoxin unless Level is normal Hold Eliquis, no not start if INR elevated appt with Dr Bui next wk- discuss with Dr Frazier when to restart Digoxin and Eliquis cont TIW dialysis cont Paracentesis as outpt ff up with Dr Lillian solomon Home RN. Wound Fdc Physical Therapy ff up with GI in [place] in 1 wk Referrals: Alex Bui MD [Staff Provider] - Jose Snyder MD [Primary Care Provider] -
[2018-01-26 09:18] LABS: HEMOGLOBIN 8.4 g/dL (12.0-16.0); MEAN CORPUSCULAR HEMOGLOBIN 31.6 pg (27.0-31.0); MEAN CORPUSCULAR HGB CONC 32.6 g/dL (33.0-37.0); RBC 2.66 Mil/uL (3.80-5.20); RED CELL DISTRIBUTION WIDTH 16.5 % (11.5-14.5); WHITE BLOOD COUNT 6.7 K/uL (4.8-10.8)
[2018-01-26 09:33] LABS: CALCIUM 7.2 mg/dL (8.4-10.2)
--- NOTE | 2018-01-26 09:47 | CP.PCM.PN ---
Subjective - Date & Time of Evaluation Date of Evaluation: 01/26/18 Time of Evaluation: 09:46 - Subjective Subjective: She was seen in intensive care unit patient feeling much better no abdominal pain. Non-nausea no vomiting Patient reported that she is going home today I discussed the case with the daughter at the bedside that she is going for outpatient dialysis. Objective - Vital Signs/Intake and Output Vital Signs (last 24 hours): Temp Pulse Resp BP Pulse Ox 97.2 F L 70 14 100/40 L 100 01/25/18 20:00 01/26/18 06:00 01/26/18 06:00 01/26/18 06:00 01/26/18 06:00 - Medications Medications: Current Medications Acetaminophen (Tylenol 325mg Tab) 650 mg PO Q6 PRN PRN Reason: moderate pain level 4-7 Last Admin: 01/25/18 17:04 Dose: 650 mg Epoetin Blade (Procrit) 8,000 unit IV F [facility] Guaifenesin/Dextromethorphan (Mucinex-Dm 600-30 Mg) 1 tab PO BID [facility] Last Admin: 01/23/18 16:15 Dose: 1 tab Lactulose (Enulose) 20 gm PO BID PRN PRN Reason: Constipation Last Admin: 01/13/18 13:19 Dose: 20 gm Metoprolol Tartrate (Lopressor) 25 mg PO DAILY [facility] Last Admin: 01/10/18 09:12 Dose: Not Given Midodrine (Proamatine) 10 mg PO Q8 [facility] Last Admin: 01/26/18 00:39 Dose: 10 mg Multivitamins/Minerals (Therapeutic-M Tab) 1 tab PO DAILY [facility] Last Admin: 01/25/18 08:45 Dose: 1 tab Ondansetron HCl (Zofran Odt) 4 mg PO DAILY [facility] Last Admin: 01/25/18 08:34 Dose: 4 mg Ondansetron HCl (Zofran Odt) 4 mg PO Q8H PRN PRN Reason: Nausea/Vomiting Last Admin: 01/13/18 10:38 Dose: 4 mg Pantoprazole Sodium (Protonix Inj) 40 mg IVP BID [facility] Last Admin: 01/25/18 16:53 Dose: 40 mg Prednisone (Prednisone Tab) 2.5 mg PO MOFR [facility] Last Admin: 01/22/18 16:35 Dose: 2.5 mg Prochlorperazine (Compazine) 10 mg IVP Q8 PRN PRN Reason: Nausea/Vomiting Last Admin: 01/23/18 14:25 Dose: 10 mg Timolol Maleate (Timoptic 0.5% Ophth Soln) 1 drop OU DAILY [facility] Last Admin: 01/25/18 08:34 Dose: 1 drop Tramadol HCl (Ultram) 50 mg PO Q12 PRN PRN Reason: Pain, moderate (4-7) Last Admin: 01/22/18 13:06 Dose: 50 mg - Labs Labs: 01/26/18 09:07 01/26/18 09:07 PT 15.9 Seconds (9.8-13.1) H 01/22/18 04:30 INR 1.4 (0.9-1.2) H 01/22/18 04:30 APTT 33.7 Seconds (25.6-37.1) 01/19/18 04:20 - Constitutional Appears: No Acute Distress - Eye Exam Eye Exam: Conjunctival injection - ENT Exam ENT Exam: Mucous Membranes Moist - Neck Exam Neck Exam: absent: Lymphadenopathy - Respiratory Exam Respiratory Exam: NORMAL BREATHING PATTERN. absent: Chest Wall Tenderness - Cardiovascular Exam Cardiovascular Exam: absent: Gallop, JVD, Rubs - GI/Abdominal Exam GI & Abdominal Exam: Soft, Normal Bowel Sounds - Extremities Exam Extremities Exam: absent: Calf Tenderness - Back Exam Back Exam: absent: CVA tenderness (L), CVA tenderness (R) - Neurological Exam Neurological Exam: Alert - Psychiatric Exam Psychiatric exam: Normal Affect - Skin Skin Exam: absent: Cyanosis Assessment and Plan (1) Abdominal pain Status: Acute (2) Ascites Status: Acute (3) ESRD (end stage renal disease) on dialysis Assessment & Plan: And decisions renal disease receiving dialysis as outpatient TTS. Patient is being discharged by the primary team and follow-up as outpatient. The rest of the medical problem has been primary team. #2 ascitis status post paracentesis previously #3 abdominal pain improving somewhat #4 chf history and volume overloaded.improving #5 H/O pericardial effusion, #6 hypotension #7 hypoalbuminemia patient need nutritional counseling with the dietitian. #8 history of hyperphosphatemia and secondary hyperparathyroidism #9 debility patient has f/up by her airplane rigger as outpatient regarding the anticoagulation and echocardiogram among other things Status: Acute
[2018-01-26 09:56] VITALS: TEMP 97.8
[2018-01-26] MEDS: Multivitamin With Minerals Tab PO SCH (10:11)
[2018-01-26] MEDS: Epoetin Alfa 20000 UNIT/ML Inj IV SCH ×3 (10:21→10:37)
[2018-01-26 13:20] VITALS: BP 102/40; PULSE 77; RESP 14
--- NOTE | 2018-01-29 10:33 | PQF SEPSIS ---
This form is a permanent part of the medical record Dr. Geovanna Bob: Could you please clarify if sepsis was ruled in or out, present on admission. Clarification of your documentation is requested to better reflect the severity of illness and intensity of treatment of your patient. Indicators present [] Temp < 96.8 or > 100.4 [] WBC count > 12,000/mm3 or <000/mm3 or 10% immature neutrophils [] Heart Rate > 90 [] Respiratory Rate > 20 [] Fever or hypothermia [] Chills [] Positive blood cultures [] Hypotension [] Metabolic acidosis (Elevated lactate level, anion gap or reduced blood pH) [] Acute confusion /Altered Mental Status [] Shock [] Other: [] Location in the medical record that reflects the above clinical findings: [] Treatment Provided: [] PHYSICIAN'S RESPONSE Sepsis ruled out Based on your medical judgment of the clinical indicators outlined above, are you treating this patient for a known or suspected: [] Sepsis / Septicemia Please specify organism if known [] [] SIRS (Systemic Inflammatory Response Syndrome) [] Severe Sepsis (Sepsis with Associated Organ Dysfunction) [] Fever of Unknown Origin [] Other, please indicate: [] [] If Unable to Determine, please check the box, sign and date. Present On Admission (POA) Indicator: [] Present at the time of admission [] Not present at the time of admission [] Clinically Undetermined In responding to this query, please exercise your independent professional judgment. The fact that a question is asked does not imply that any particular answer is desired or expected. Thank you for your clarification on this documentation. 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
== END 2018-01-26 12:30 | disposition home health service (06) | DRG 432 ==
LOC: H.ER 01:38 → H.ERHOLD 05:51 → H.ICU/CCU 08:47 → OBSVTOIN 09:00
PROVIDERS: ADMIT Internal Medicine; ATTEND Internal Medicine
PROC: 0W9G3ZZ Drainage of Peritoneal Cavity, Percutaneous Approach (ICD-10-PCS; principal; 2018-01-10)
PROC: 5A1D70Z Performance of Urinary Filtration, Intermittent, Less than 6 Hours Per Day (ICD-10-PCS; 2018-01-15)
PROC: 30233N1 Transfusion of Nonautologous Red Blood Cells into Peripheral Vein, Percutaneous Approach (ICD-10-PCS; 2018-01-17)
PROC: 30233K1 Transfusion of Nonautologous Frozen Plasma into Peripheral Vein, Percutaneous Approach (ICD-10-PCS; 2018-01-17)
PROC: 5A1D70Z Performance of Urinary Filtration, Intermittent, Less than 6 Hours Per Day (ICD-10-PCS; 2018-01-17)
PROC: 5A1D70Z Performance of Urinary Filtration, Intermittent, Less than 6 Hours Per Day (ICD-10-PCS; 2018-01-20)
PROC: 0W9G3ZZ Drainage of Peritoneal Cavity, Percutaneous Approach (ICD-10-PCS; 2018-01-22)
PROC: 5A1D70Z Performance of Urinary Filtration, Intermittent, Less than 6 Hours Per Day (ICD-10-PCS; 2018-01-23)
PROC: 5A1D70Z Performance of Urinary Filtration, Intermittent, Less than 6 Hours Per Day (ICD-10-PCS; 2018-01-25)
DX: K74.69 Other cirrhosis of liver (principal); G93.41 Metabolic encephalopathy; N18.6 End stage renal disease; K29.71 Gastritis, unspecified, with bleeding; K65.2 Spontaneous bacterial peritonitis; R18.8 Other ascites; I12.0 Hypertensive chronic kidney disease with stage 5 chronic kidney disease or end stage renal disease; K56.609 Unspecified intestinal obstruction, unspecified as to partial versus complete obstruction; K76.6 Portal hypertension; N25.81 Secondary hyperparathyroidism of renal origin; Q61.3 Polycystic kidney, unspecified; R57.9 Shock, unspecified; A04.71 Enterocolitis due to Clostridium difficile, recurrent; D62 Acute posthemorrhagic anemia; D68.4 Acquired coagulation factor deficiency; E87.5 Hyperkalemia; F41.9 Anxiety disorder, unspecified; H40.9 Unspecified glaucoma; I27.20 Pulmonary hypertension, unspecified; I48.2 Chronic atrial fibrillation; K72.90 Hepatic failure, unspecified without coma; K80.20 Calculus of gallbladder without cholecystitis without obstruction; T46.0X5A Adverse effect of cardiac-stimulant glycosides and drugs of similar action, initial encounter; Z79.01 Long term (current) use of anticoagulants; Z86.19 Personal history of other infectious and parasitic diseases; Z87.01 Personal history of pneumonia (recurrent); Z95.0 Presence of cardiac pacemaker; Z96.649 Presence of unspecified artificial hip joint; Z99.2 Dependence on renal dialysis; M19.90 Unspecified osteoarthritis, unspecified site; Z79.899 Other long term (current) drug therapy; R91.1 Solitary pulmonary nodule; D63.8 Anemia in other chronic diseases classified elsewhere; D69.6 Thrombocytopenia, unspecified; E83.39 Other disorders of phosphorus metabolism

== ENCOUNTER 2018-02-03 18:37 | Observation (INO) | payer MEDICARE, MEDICAID ==
[2018-02-03 18:38] VITALS: PULSE 70; BMI 20.5
[2018-02-03] MEDS ORDERED: Sodium Chloride 0.9% 1,000 ML IV STA (19:43)
--- NOTE | 2018-02-03 19:51 | ED PDOC ---
HPI: Abdomen Time Seen by Provider: 02/03/18 19:33 Chief Complaint (Nursing): Abdominal Pain History Per: Family Onset/Duration Of Symptoms: Days (2) Current Symptoms Are (Timing): Still Present Severity: Moderate Location Of Pain/Discomfort: Diffuse Quality Of Discomfort: Pressure Exacerbating Factors: None Alleviating Factors: None Additional Complaint(s): Increasing abd pain and distention worse over past 2 days. No vomiting or diarrhea. No fever. Had dialysis monday but only for 2 hours due to hypotension. Py has h/o liver failure with ascites but unable to perform parascentesis due to hypotension. Past Medical History Vital Signs: Last Vital Signs Temp 97.8 F 02/03/18 18:43 Pulse 78 02/03/18 18:43 Resp 18 02/03/18 18:43 BP 76/46 L 02/03/18 18:43 Pulse Ox 99 02/03/18 20:02 - Medical History PMH: Anemia, Anxiety, Arthritis, Atrial Fibrillation, Diverticulitis, HTN, Peripheral Edema, Pneumonia, End Stage Renal Disease, Chronic Kidney Disease Denies: Fractures, HIV, Kidney Stones Other PMH: hepatic failure with ascites - Surgical History Surgical History: Endoscopy, Pacemaker (left femoral) - Family History Family History: States: Unknown Family Hx - Home Medications Home Medications: Ambulatory Orders Medication Instructions Recorded Sevelamer Carbonate [Renvela] 800 mg PO TID 11/18/14 Timolol 0.5% Ophth [Timoptic 0.5% 1 drop EACHEYE DAILY 03/26/15 Ophth Soln] Prednisone 2.5 mg PO MOFR 01/12/16 B Complex W-C No.20/Folic Acid 1 cap PO DAILY 09/11/17 [Virt-Caps Softgel] Cinacalcet [Sensipar] 30 mg PO DAILY 09/11/17 Esomeprazole Magnesium [Nexium] 40 mg PO DAILY 09/11/17 Ondansetron ODT [Zofran ODT] 4 mg PO DAILY 01/09/18 Ranitidine HCl [Acid Armor Reconnaissance Specialist 150] 150 mg PO BID 01/09/18 Digoxin 0.125 mg PO MWF #30 tab 01/25/18 Midodrine [Proamatine] 10 mg PO TID #120 tab 01/25/18 Acetaminophen [Tylenol 325mg tab] 650 mg PO Q6 PRN tab 01/26/18 Digoxin [Lanoxin] 0.125 mg PO MWF #30 tab 01/26/18 Epoetin Blade [Procrit] 8,000 unit IV MWF ml 01/26/18 Midodrine [Proamatine] 10 mg PO Q8 #90 tab 01/26/18 traMADol [Ultram] 50 mg PO Q12 PRN #10 tab 01/26/18 - Allergies Allergies/Adverse Reactions: Allergies Allergy/AdvReac Type Severity Reaction Status Date / Time Penicillins Allergy RASH Verified 01/09/18 01:48 morphine AdvReac HEADACHE Verified 01/09/18 01:48 mayonnaise AdvReac VOMITING Uncoded 01/09/18 01:48 Review of Systems ROS Statement: Except As Marked, All Systems Reviewed And Found Negative Gastrointestinal: Positive for: Abdominal Pain Physical Exam - Reviewed Nursing Documentation Reviewed: Yes Vital Signs Reviewed: Yes - Physical Exam Appears: Positive for: Non-toxic Head Exam: Positive for: ATRAUMATIC, NORMAL INSPECTION, NORMOCEPHALIC Skin: Positive for: Normal Color, Warm, DRY Eye Exam: Positive for: EOMI, Normal appearance, PERRL ENT: Positive for: Normal ENT Inspection Neck: Positive for: Normal, Painless ROM Cardiovascular/Chest: Positive for: Regular Rate, Rhythm Respiratory: Positive for: Decreased Breath Sounds (at bases) Gastrointestinal/Abdominal: Positive for: Distended, Asicites Back: Positive for: Normal Inspection Extremity: Positive for: Swelling (1-2+ edema lower and upper ext bilat. Dusky toes and finger tips bilat.), Other (Sacral decubitus ulcer) Neurologic/Psych: Negative for: Alert (Confused) - Laboratory Results Result Diagrams: 02/03/18 19:49 02/03/18 19:49 - ECG O2 Sat by Pulse Oximetry: 99 Disposition - Clinical Impression Clinical Impression: Cirrhosis of liver with ascites, ESRD (end stage renal disease) on dialysis - Patient ED Disposition Is Patient to be Admitted: Yes - Disposition Disposition Time: 21:09 Condition: GUARDED Forms: [facility] (Maltese) - Pt Status Changed To: Hospital Disposition Of: Observation - POA Present On Arrival: Pressure Ulcer (Sacral)
[2018-02-03 20:15] LABS: BASO % 0.6 % (0.0-2.0); EOS % 0.3 % (0.0-4.0); HEMOGLOBIN 10.2 g/dL (12.0-16.0); LYMPH # 0.7 K/uL (1.0-4.3); LYMPH % 8.5 % (20.0-40.0); MEAN CELL VOLUME 104.7 fl (81.0-99.0); MEAN CORPUSCULAR HEMOGLOBIN 31.9 pg (27.0-31.0); MEAN CORPUSCULAR HGB CONC 30.5 g/dL (33.0-37.0); MEAN PLATELET VOLUME 10.6 fl (7.2-11.7); MONO % 12.1 % (0.0-10.0); NEUT # 6.4 K/uL (1.8-7.0); NEUT % 78.5 % (50.0-75.0); NRBC % 0.4 % (0.0-0.0); PLATELET COUNT 93 K/uL (130-400); RBC 3.21 Mil/uL (3.80-5.20); RED CELL DISTRIBUTION WIDTH 22.8 % (11.5-14.5); WHITE BLOOD COUNT 8.2 K/uL (4.8-10.8)
[2018-02-03 20:20] LABS: ALB/GLOB RATIO 0.8 (1.0-2.1); ALBUMIN 2.5 g/dL (3.5-5.0); CALCIUM 7.8 mg/dL (8.4-10.2)
--- NOTE | 2018-02-03 21:14 | CP.PCM.HP ---
History of Present Illness - History of Present Illness History of Present Illness: PMD: Jose De Souza MD Chief Complaint: Abdominal pain/Abdominal Distension The patient was seen and examined in the ED HPI: The hx was obtained from the patient's daughter and after review of the medical record. She is a 77 years old female with hx of Chronic A Fib, ESRD on Hemodialysis MWF, and liver cirrhosis with Ascites and bimonthly paracentesis and on 2 L of Oxygen /min at home. She was last admitted to the [facility] on 01/09/18 for abdominal pain and discharged to home on 01/26/18. Her daughter brought her to the ED because of 2 days of increasing lower abdominal pain, more at the right lower quadrant. this is associated with poor appetite, SOB, low blood pressures and frequent bowel movements.Her hemodialysis yesterday was 2hours instead of 3hours because her blood pressure decreased. PMH: Anemia, Anxiety, Arthritis, A Fib; Diverticulitis, HTN, Peripheral Edema, Pneumonia, ESRD on HD MWF; stage II sacrial Ulcer; C Diff on last admission; Liver cirrhosis with biweekly paracentesis, PSH: Endoscopy, Pacemaker (left femoral); Right upper extremity AV shunt SH: Live with family; No tobacco smoking; No ETOH FH: : States: Unknown Family Hx Allergies: PCN; Morphine Mayonnaise Medication: Reviewed Present on Admission - Present on Admission Any Indicators Present on Admission: Yes History of DVT/PE: No History of Uncontrolled Diabetes: No Urinary Catheter: No Decubitus Ulcer Present: Yes Review of Systems - Review of Systems Review of Systems: Review of systems limited because of the patient poor response due to her abdominal pain. - Constitutional Constitutional: absent: Chills, Fever - Respiratory Respiratory: Dyspnea. absent: Cough - Gastrointestinal Gastrointestinal: Abdominal Pain, Diarrhea Past Patient History - Infectious Disease Hx of Infectious Diseases: None - Tetanus Immunizations Tetanus Immunization: Unknown - Past Medical History & Family History Past Medical History?: Yes - Past Social History Smoking Status: Never Smoked Chewing Tobacco Use: No Cigar Use: No Alcohol: None Home Situation {Lives}: With Family - CARDIAC Hx Atrial Fibrillation: Yes Hx Hypertension: Yes Hx Pacemaker: Yes (left femoral) Hx Peripheral Edema: Yes - PULMONARY Hx Pneumonia: Yes - NEUROLOGICAL Hx Neurological Disorder: No - HEENT Hx Glaucoma: Yes - RENAL Hx Chronic Kidney Disease: Yes Hx Kidney Stones: No - ENDOCRINE/METABOLIC Hx Endocrine Disorders: No - HEMATOLOGICAL/ONCOLOGICAL Hx Anemia: Yes Hx Human Immunodeficiency Virus (HIV): No - INTEGUMENTARY Hx Dermatological Problems: No - MUSCULOSKELETAL/RHEUMATOLOGICAL Hx Arthritis: Yes Hx Fractures: No - GASTROINTESTINAL Hx Diverticulitis: Yes - GENITOURINARY/GYNECOLOGICAL Hx Genitourinary Disorders: No - PSYCHIATRIC Hx Anxiety: Yes - SURGICAL HISTORY Hx Surgeries: Yes Other/Comment: PARACENTESIS SERIES. Hip replacement - ANESTHESIA Hx Anesthesia: Yes Hx Anesthesia Reactions: Yes (HARD TO WAKE UP) Hx Malignant Hyperthermia: No Meds Allergies/Adverse Reactions: Allergies Allergy/AdvReac Type Severity Reaction Status Date / Time Penicillins Allergy RASH Verified 01/09/18 01:48 morphine AdvReac HEADACHE Verified 01/09/18 01:48 mayonnaise AdvReac VOMITING Uncoded 01/09/18 01:48 Physical Exam - Constitutional Appears: No Acute Distress - Head Exam Head Exam: ATRAUMATIC, NORMAL INSPECTION, NORMOCEPHALIC - Eye Exam Pupil Exam: NORMAL ACCOMODATION, PERRL - ENT Exam ENT Exam: Mucous Membranes Dry, Normal External Ear Exam - Neck Exam Neck exam: Positive for: Full Rom, Normal Inspection. Negative for: Tenderness - Respiratory Exam Respiratory Exam: Clear to Auscultation Bilateral. absent: Rales, Rhonchi, Wheezes - Cardiovascular Exam Cardiovascular Exam: REGULAR RHYTHM, +S1, +S2 - GI/Abdominal Exam Additional comments: Distended, soft, decreased bowel sounds, tender at both left and right lower quadrant, no rebound nor guarding - Rectal Exam Rectal Exam: Deferred - Extremities Exam Extremities exam: Positive for: pedal edema. Negative for: tenderness Additional comments: Right upper extremity with 2+ edema Both lower extremities with 1+ edema - Back Exam Back exam: NORMAL INSPECTION. absent: CVA tenderness (L), CVA tenderness (R) Additional comments: Sacrial ulceration stage II - Neurological Exam Neurological exam: CN II-XII Intact, Reflexes Normal Additional comments: Not answering to questions, arousable, No facial droop, moving both upper extremities, no focal neurological findings - Psychiatric Exam Psychiatric exam: Flat Affect - Skin Skin Exam: Dry, Intact, Normal Color, Warm Results - Vital Signs Recent Vital Signs: Last Vital Signs Temp 97.8 F 02/03/18 18:43 Pulse 78 02/03/18 18:43 Resp 18 02/03/18 18:43 BP 76/46 L 02/03/18 18:43 Pulse Ox 99 02/03/18 21:09 - Labs Result Diagrams: 02/03/18 19:49 02/03/18 19:49 Labs: Laboratory Results - last 24 hr 02/03/18 02/03/18 02/03/18 19:49 19:49 19:49 WBC 8.2 RBC 3.21 L Hgb 10.2 L Hct 33.6 L MCV 104.7 H D MCH 31.9 H MCHC 30.5 L RDW 22.8 H Plt Count 93 L MPV 10.6 Neut % (Auto) 78.5 H Lymph % (Auto) 8.5 L [place] % (Auto) 12.1 H Eos % (Auto) 0.3 Baso % (Auto) 0.6 Neut # (Auto) 6.4 Lymph # (Auto) 0.7 L [place] # (Auto) 1.0 H Eos # (Auto) 0.0 Baso # (Auto) 0.0 Sodium 140 Potassium 4.4 Chloride 100 Carbon Dioxide 23 Anion Gap 21 H BUN 55 H Creatinine 3.4 H Est GFR ( Amer) 16 Est GFR (Non-Af Amer) 13 Random Glucose 82 Calcium 7.8 L Total Bilirubin 4.2 H AST 61 H D ALT 34 Alkaline Phosphatase 202 H D Ammonia 39 D Total Protein 5.7 L Albumin 2.5 L D Globulin 3.2 Albumin/Globulin Ratio 0.8 L - Imaging and Cardiology Chest x-ray Status: Image reviewed by me Additional comment: Right base obliterated Assessment & Plan - Assessment and Plan (Free Text) Assessment: #. Abdomoinal Pain #. Liver cirrhosis with Ascites #. ESRD on HD #. Coagulopathy #. Anemia of Chronic disease #. Stage II sacral Ulcer Plan: 77 years old female with hx of Chronic A Fib, ESRD on Hemodialysis MWF, and liver cirrhosis with Ascites and bimonthly paracentesis and on 2 L of Oxygen / min at home was brought to the ED because of 2 days of increasing lower abdominal pain, more at the right lower quadrant. This is associated with poor appetite, SOB, low blood pressures and frequent bowel movements. #. Abdominal Pain secondary to the abdominal distension from the Ascites. She does have frequent bowel movements. r/o C Diff - Stool for C Diff - Paracentesis as soon as possible - Pain management #. Liver cirrhosis with Ascites - Consult GI dr Jerome - ELIS For US guided Paracentesis #. ESRD on HD MWF - Consult Dr Gutiérrez for dialysis #. Coagulopathy - Vitamin K could repeat q8H - FFP Prior to Paracenteesis - Follow INR #. Anemia of Chronic disease - Follow HB #. Stage II sacral Ulcer - Wound car3e nurse Consult #. Stress Ulcer prophylaxis with Pantoprazole #. DVT prophylaxis with SCD #. Code Status: DNR - Date & Time Date: 02/03/18 Time: 21:14
[2018-02-03] MEDS ORDERED: Acetaminophen 650mg/20.3ml solution UD PO PRN (21:40)
[2018-02-03 21:55] LABS: ANISOCYTOSIS SLIGHT; LYMPHOCYTE 7 % (20-50); MONOCYTE 5 % (0-10); NEUTROPHIL 87 % (42-75); NUCLEATED RED BLOOD CELL 2 % (0-0); PLATELET ESTIMATE DECREASED (NORMAL); REACTIVE LYMPHOCYTES 1 % (0-0); TOTAL CELLS COUNTED 100
[2018-02-03 21:56] LABS: HYPOCHROMIC SLIGHT
[2018-02-03 23:30] LABS: INR 1.7 (0.9-1.2); PARTIAL THROMBOPLASTIN TIME 46.6 Seconds (25.6-37.1); PROTHROMBIN TIME 18.8 Seconds (9.8-13.1)
[2018-02-04] MEDS ORDERED: Phytonadione 10 mg/ml Inj (Adult) IVPB ONE (00:23)
[2018-02-04] MEDS ORDERED: Phytonadione 10 MG in Sodium Chloride 0.9% 50 ML IVPB ONE (00:45)
--- NOTE | 2018-02-04 07:32 | CP.PCM.PN ---
Subjective - Date & Time of Evaluation Date of Evaluation: 02/04/18 Time of Evaluation: 11:30 - Subjective Subjective: Patient seen and examined bedside. Elderly female, chronically ill, lying in pain complaining of pain to her abdomen. Abdomen appears distended. BP on the lower side 88/51 HR 69 saturating 96 % on 3 L O2 via NC WBC 8.2 Hgb 10.2 plt 93K INR 1.7 With soft BM DNR / DNI Objective - Vital Signs/Intake and Output Vital Signs (last 24 hours): Temp Pulse Resp BP Pulse Ox 96.4 F L 70 18 90/57 L 100 02/04/18 04:54 02/04/18 04:54 02/04/18 04:54 02/04/18 04:54 02/04/18 04:54 - Medications Medications: Current Medications Acetaminophen (Tylenol 650mg/20.3ml Solution Ud) 650 mg PO Q6 PRN PRN Reason: Pain, moderate (4-7) Last Admin: 02/04/18 06:03 Dose: 650 mg Sodium Chloride (Sodium Chloride 0.9%) 1,000 mls @ 50 mls/hr IV .Q20H STA Stop: 02/04/18 15:42 Last Admin: 02/03/18 20:19 Dose: 50 mls/hr Midodrine (Proamatine) 10 mg PO TID [facility] Ondansetron HCl (Zofran Tab) 4 mg PO Q8 PRN PRN Reason: Nausea/Vomiting Pantoprazole Sodium (Protonix Ec Tab) 40 mg PO DAILY [facility] Prednisone (Prednisone Tab) 5 mg PO QOTHERDAY [facility] Sevelamer Carbonate (Renvela) 0.8 gm PO DAILY [facility] Thiamine HCl (Vitamin B1 Tab) 50 mg PO DAILY [facility] Timolol Maleate (Timoptic 0.5% Ophth Soln) 1 drop OU DAILY [facility] - Labs Labs: 02/03/18 19:49 02/03/18 19:49 PT 18.8 Seconds (9.8-13.1) H 02/03/18 23:07 INR 1.7 (0.9-1.2) H 02/03/18 23:07 APTT 46.6 Seconds (25.6-37.1) H 02/03/18 23:07 - Constitutional Appears: Chronically Ill, Other (with abdominal pain ) - Head Exam Head Exam: NORMOCEPHALIC - Eye Exam Eye Exam: PERRL Pupil Exam: NORMAL ACCOMODATION - ENT Exam ENT Exam: Mucous Membranes Dry, Normal Exam - Neck Exam Neck Exam: Normal Inspection - Respiratory Exam Respiratory Exam: Decreased Breath Sounds (bibasilar). absent: Rhonchi, Wheezes - Cardiovascular Exam Cardiovascular Exam: Irregular Rhythm. absent: JVD - GI/Abdominal Exam GI & Abdominal Exam: Distended, Tenderness, Normal Bowel Sounds. absent: Guarding, Rebound - Rectal Exam Rectal Exam: Deferred - Extremities Exam Extremities Exam: Full ROM, Normal Capillary Refill, Normal Inspection, Pedal Edema (1 + lower extremities) - Neurological Exam Neurological Exam: Alert, Awake, CN II-XII Intact, Oriented x3 - Psychiatric Exam Psychiatric exam: Flat Affect - Skin Skin Exam: Dry, Pallor, Warm Additional comments: stage II left buttock ulcer Assessment and Plan - Assessment and Plan (Free Text) Assessment: 77 years old female with hx of Chronic A Fib, ESRD on Hemodialysis MWF, and liver cirrhosis with Ascites and bimonthly paracentesis and on 2 L of Oxygen / min at home was brought to the ED because of 2 days of increasing lower abdominal pain, more at the right lower quadrant. This is associated with poor appetite, SOB, low blood pressures and frequent bowel movements. patient admitted to med/surg She is well known to our service and has very poor prognosis Discussed with daughter at length. She has decided to follow her mothers wishes about DNR/ DNI.Had long discussion about comfort / hospice care and she is agreeable to home hospice . Patient wants abdominal parasenthesis for relief . 1.Abdominal Pain most likely secondary to the abdominal distension from the Ascites. She does have frequent bowel movements but recently was treated for c.diff and tested negative post treatment will re check for C.diff again patient asking for abdominal parasenthesis for relief of her pain will consult IR for symptomatic relief of ascities Check PT/INR. Will give Vitamin K today pain management patient has poor prognosis due to her chronic renal and liver failure Will call Hospice eval . family agrees with home hospice and comfort care 2. Cryptogenic Liver cirrhosis with Ascites, coagulopathy , thrombocytopenia IR For US guided Paracentesis Pain management Poor p[rognosis 3. ESRD on HD MWF Consult Dr Gutiérrez for dialysis now is able to tolerate only 2 hours of ultrafiltration Last HD 2 days ago 4. Anemia of Chronic disease stable 5. Chronic hypotension on Midodrine 10 mg po TID 6. Chronic Afib rate controlled on Metoprolol Digoxin discontinued last admission due to toxicity Eliquis stopped due to coagulopathy with GI bleed and high risk for bleeding 7. Stage II sacral Ulcer Wound care nurse Consult 8. Stress Ulcer prophylaxis with Pantoprazole 9.Guarded Prognosis Hospice eval
[2018-02-04] MEDS: Pantoprazole 40 mg EC Tab PO SCH (08:55)
[2018-02-04] MEDS: Sevelamer Carb 0.8 gm/Packet PO SCH ×2 (08:56→11:32)
--- NOTE | 2018-02-04 09:30 | RAD ---
HISTORY: Cough COMPARISON: 01/15/2018. FINDINGS: LUNGS: The lungs are well inflated. There is mild pulmonary venous congestion. There is left lower lobe airspace disease. PLEURA: Small pleural effusions, no pneumothorax apparent. CARDIOVASCULAR: There is persistent mild cardiomegaly. OSSEOUS STRUCTURES: No significant abnormalities. VISUALIZED UPPER ABDOMEN: Normal. OTHER FINDINGS: There is stable appearance of right subclavian and axillary endovascular stents. IMPRESSION: Findings are most compatible with mild congestive heart failure. Left lower lobe airspace disease may represent atelectasis or pneumonia. Follow-up is advised.
--- NOTE | 2018-02-04 16:53 | CP.PCM.CON ---
History of Present Illness - History of Present Illness History of Present Illness: renal consult note 77 years old female with Chronic A Fib, ESRD on Hemodialysis MWF, and liver cirrhosis with Ascites and bimonthly paracentesis and on 2 L of Oxygen /min at home. Her daughter brought her to the ED because of 2 days of increasing lower abdominal pain, more at the right lower quadrant. this is associated with poor appetite, SOB, low blood pressures and frequent bowel movements.Her hemodialysis was on monday 2 hours sec to abdominal pain PMH htn, esrd, a fib, ascites, liver diseasse social hx: no alcohol, no drugs, non smoker complete ros is negative except fro those above exam vss mild distress sec to pain heent normal op moist no jvd s1s2 present no resp distress abd soft, distended, tender right sided skin normal pedal edema cooperative no fnd ESRD/abdominal pain/anemia/edema/cirrhosis hd mwf, continue per jaya no acute indication to dialyse today lytes reviewed i have ordered a phos level to be checked anemia stable Past Patient History - Infectious Disease Hx of Infectious Diseases: None - Tetanus Immunizations Tetanus Immunization: Unknown - Past Medical History & Family History Past Medical History?: Yes - Past Social History Smoking Status: Never Smoked Chewing Tobacco Use: No Cigar Use: No Alcohol: None Home Situation {Lives}: With Family - CARDIAC Hx Atrial Fibrillation: Yes Hx Hypertension: Yes Hx Pacemaker: Yes (left femoral) Hx Peripheral Edema: Yes - PULMONARY Hx Pneumonia: Yes - NEUROLOGICAL Hx Neurological Disorder: No - HEENT Hx Glaucoma: Yes - RENAL Hx Chronic Kidney Disease: Yes Hx Kidney Stones: No - ENDOCRINE/METABOLIC Hx Endocrine Disorders: No - HEMATOLOGICAL/ONCOLOGICAL Hx Anemia: Yes Hx Human Immunodeficiency Virus (HIV): No - INTEGUMENTARY Hx Dermatological Problems: No - MUSCULOSKELETAL/RHEUMATOLOGICAL Hx Arthritis: Yes Hx Fractures: No - GASTROINTESTINAL Hx Diverticulitis: Yes - GENITOURINARY/GYNECOLOGICAL Hx Genitourinary Disorders: No - PSYCHIATRIC Hx Anxiety: Yes - SURGICAL HISTORY Hx Surgeries: Yes Other/Comment: PARACENTESIS SERIES. Hip replacement - ANESTHESIA Hx Anesthesia: Yes Hx Anesthesia Reactions: Yes (HARD TO WAKE UP) Hx Malignant Hyperthermia: No Meds Allergies/Adverse Reactions: Allergies Allergy/AdvReac Type Severity Reaction Status Date / Time Penicillins Allergy RASH Verified 01/09/18 01:48 morphine AdvReac HEADACHE Verified 01/09/18 01:48 mayonnaise AdvReac VOMITING Uncoded 01/09/18 01:48 - Medications Medications: Current Medications Acetaminophen (Tylenol 650mg/20.3ml Solution Ud) 650 mg PO Q6 PRN PRN Reason: Pain, moderate (4-7) Last Admin: 02/04/18 06:03 Dose: 650 mg Ketorolac Tromethamine (Toradol) 15 mg IVP Q6 PRN PRN Reason: Pain, moderate (4-7) Last Admin: 02/04/18 12:34 Dose: 15 mg Midodrine (Proamatine) 10 mg PO TID [facility] Last Admin: 02/04/18 16:15 Dose: 10 mg Ondansetron HCl (Zofran Tab) 4 mg PO Q8 PRN PRN Reason: Nausea/Vomiting Pantoprazole Sodium (Protonix Ec Tab) 40 mg PO DAILY [facility] Last Admin: 02/04/18 08:55 Dose: 40 mg Prednisone (Prednisone Tab) 5 mg PO QOTHERDAY [facility] Sevelamer Carbonate (Renvela) 0.8 gm PO DAILY [facility] Last Admin: 02/04/18 11:32 Dose: Not Given Thiamine HCl (Vitamin B1 Tab) 50 mg PO DAILY [facility] Last Admin: 02/04/18 08:56 Dose: 50 mg Timolol Maleate (Timoptic 0.5% [facility]) 1 drop OU DAILY [facility] Last Admin: 02/04/18 08:55 Dose: 1 drop Results - Vital Signs Recent Vital Signs: Last Vital Signs Temp 97.2 F L 02/04/18 16:15 Pulse 70 02/04/18 16:15 Resp 16 02/04/18 16:15 BP 81/40 L 02/04/18 16:15 Pulse Ox 98 02/04/18 16:15 - Labs Result Diagrams: 02/03/18 19:49 02/03/18 19:49 Labs: Laboratory Results - last 24 hr 02/03/18 02/03/18 02/03/18 19:49 19:49 19:49 WBC 8.2 RBC 3.21 L Hgb 10.2 L Hct 33.6 L MCV 104.7 H D MCH 31.9 H MCHC 30.5 L RDW 22.8 H Plt Count 93 L MPV 10.6 Neut % (Auto) 78.5 H Lymph % (Auto) 8.5 L [place] % (Auto) 12.1 H Eos % (Auto) 0.3 Baso % (Auto) 0.6 Neut # (Auto) 6.4 Lymph # (Auto) 0.7 L [place] # (Auto) 1.0 H Eos # (Auto) 0.0 Baso # (Auto) 0.0 Neutrophils % (Manual) 87 H Lymphocytes % (Manual) 7 L Reactive Lymphs % 1 H Monocytes % (Manual) 5 Nucleated RBC % 2 H Platelet Estimate Decreased L Hypochromasia (manual) Slight Anisocytosis (manual) Slight Macrocytosis (manual) Slight PT INR APTT Sodium 140 Potassium 4.4 Chloride 100 Carbon Dioxide 23 Anion Gap 21 H BUN 55 H Creatinine 3.4 H Est GFR ( Amer) 16 Est GFR (Non-Af Amer) 13 Random Glucose 82 Calcium 7.8 L Total Bilirubin 4.2 H AST 61 H D ALT 34 Alkaline Phosphatase 202 H D Ammonia 39 D Total Protein 5.7 L Albumin 2.5 L D Globulin 3.2 Albumin/Globulin Ratio 0.8 L Blood Type Antibody Screen BBK History Checked 02/03/18 02/03/18 23:07 23:15 WBC RBC Hgb Hct MCV MCH MCHC RDW Plt Count MPV Neut % (Auto) Lymph % (Auto) [place] % (Auto) Eos % (Auto) Baso % (Auto) Neut # (Auto) Lymph # (Auto) [place] # (Auto) Eos # (Auto) Baso # (Auto) Neutrophils % (Manual) Lymphocytes % (Manual) Reactive Lymphs % Monocytes % (Manual) Nucleated RBC % Platelet Estimate Hypochromasia (manual) Anisocytosis (manual) Macrocytosis (manual) PT 18.8 H INR 1.7 H APTT 46.6 H Sodium Potassium Chloride Carbon Dioxide Anion Gap BUN Creatinine Est GFR ( Amer) Est GFR (Non-Af Amer) Random Glucose Calcium Total Bilirubin AST ALT Alkaline Phosphatase Ammonia Total Protein Albumin Globulin Albumin/Globulin Ratio Blood Type A POSITIVE Antibody Screen Negative BBK History Checked Patient has bt
[2018-02-05] MEDS: Sevelamer Carb 0.8 gm/Packet PO SCH (08:34)
[2018-02-05] MEDS: Pantoprazole 40 mg EC Tab PO SCH (08:34)
[2018-02-05] MEDS ORDERED: Morphine 10 mg/5 ml Oral Soln PO PRN (08:58)
[2018-02-05] MEDS ORDERED: Santyl Collagenase OINTMENT TOP SCH (09:00)
--- NOTE | 2018-02-05 09:02 | CARD ---
APPROVED REPORT EKG Measurement Heart [id number] <Conclusion> Ventricular-paced rhythm Abnormal ECG
--- NOTE | 2018-02-05 09:28 | CP.PCM.PN ---
Subjective - Date & Time of Evaluation Date of Evaluation: 02/05/18 Time of Evaluation: 09:24 - Subjective Subjective: Patient awake and conscious complain of chronic pain in the abdomen and lower backache No nausea or vomiting Objective - Vital Signs/Intake and Output Vital Signs (last 24 hours): Temp Pulse Resp BP Pulse Ox 97.5 F L 69 20 80/51 L 93 L 02/05/18 05:00 02/05/18 08:15 02/05/18 08:15 02/05/18 08:15 02/05/18 08:15 - Medications Medications: Current Medications Acetaminophen (Tylenol 650mg/20.3ml Solution Ud) 650 mg PO Q6 PRN PRN Reason: Pain, moderate (4-7) Last Admin: 02/04/18 06:03 Dose: 650 mg Collagenase (Santyl) 1 applic TOP DAILY [facility] Last Admin: 02/05/18 08:33 Dose: 1 appl Fentanyl (Duragesic) 1 patch TD Q3D [facility] PRN Reason: Protocol Last Admin: 02/05/18 09:08 Dose: 1 patch Midodrine (Proamatine) 10 mg PO TID [facility] Last Admin: 02/05/18 08:32 Dose: 10 mg Morphine Sulfate (Morphine) 2 mg IM Q4H PRN PRN Reason: Other Morphine Sulfate (Morphine) 1 mg IM Q4H PRN PRN Reason: Pain, Mild (1-3) Last Admin: 02/05/18 02:22 Dose: 1 mg Morphine Sulfate (Morphine Oral Soln) 10 mg PO Q4 PRN PRN Reason: Pain, moderate (4-7) Ondansetron HCl (Zofran Inj) 4 mg IVP Q4 PRN PRN Reason: Nausea/Vomiting Last Admin: 02/04/18 22:16 Dose: 4 mg Pantoprazole Sodium (Protonix Ec Tab) 40 mg PO DAILY [facility] Last Admin: 02/05/18 08:34 Dose: 40 mg Prednisone (Prednisone Tab) 5 mg PO QOTHERDAY [facility] Last Admin: 02/05/18 08:33 Dose: Not Given Sevelamer Carbonate (Renvela) 0.8 gm PO DAILY [facility] Last Admin: 02/05/18 08:34 Dose: Not Given Thiamine HCl (Vitamin B1 Tab) 50 mg PO DAILY [facility] Last Admin: 02/05/18 08:34 Dose: Not Given Timolol Maleate (Timoptic 0.5% Ophth Soln) 1 drop OU DAILY [facility] Last Admin: 02/05/18 08:33 Dose: 1 drop - Labs Labs: 02/03/18 19:49 02/03/18 19:49 PT 18.8 Seconds (9.8-13.1) H 02/03/18 23:07 INR 1.7 (0.9-1.2) H 02/03/18 23:07 APTT 46.6 Seconds (25.6-37.1) H 02/03/18 23:07 - Constitutional Appears: No Acute Distress - ENT Exam ENT Exam: Mucous Membranes Moist - Neck Exam Neck Exam: absent: Lymphadenopathy - Respiratory Exam Respiratory Exam: NORMAL BREATHING PATTERN. absent: Chest Wall Tenderness - GI/Abdominal Exam GI & Abdominal Exam: Guarding, Soft, Normal Bowel Sounds - Extremities Exam Extremities Exam: absent: Calf Tenderness - Back Exam Back Exam: absent: CVA tenderness (L), CVA tenderness (R) - Neurological Exam Neurological Exam: Alert - Psychiatric Exam Psychiatric exam: Depressed - Skin Skin Exam: absent: Cyanosis Assessment and Plan (1) ESRD (end stage renal disease) on dialysis Assessment & Plan: End stage renal disease patient on dialysis The daughter at the bedside discussing about hospice. Patient stated no more dialysis and the daughter confirm. It appeared that the patient's and the family dialysis from her chronic sickness and they are requesting the hospice. At this moment patient is not hospice as of yet. we will hold the dialysis based on the family request and the patient's request. The rest of the medical problem as noted Chronic atrial fibrillation Ascites was recurrent paracentesis Chronic debility Status: Acute (2) Cirrhosis of liver with ascites Status: Chronic (3) Ascites Status: Acute (4) Atrial fibrillation Status: Acute
[2018-02-05 10:22] LABS: MEAN CORPUSCULAR HEMOGLOBIN 32.5 pg (27.0-31.0); MEAN CORPUSCULAR HGB CONC 31.2 g/dL (33.0-37.0); RBC 3.09 Mil/uL (3.80-5.20); RED CELL DISTRIBUTION WIDTH 23.4 % (11.5-14.5); WHITE BLOOD COUNT 9.2 K/uL (4.8-10.8)
[2018-02-05 10:23] LABS: INR 1.6 (0.9-1.2); PROTHROMBIN TIME 18.4 Seconds (9.8-13.1)
[2018-02-05] MEDS: Morphine Sulfate 10 MG/0.5 ML SYR PO PRN ×2 (12:01→16:52)
[2018-02-05] MEDS ORDERED: Lidocaine 1% Inj (20ml) ONE (13:22)
--- NOTE | 2018-02-05 13:24 | CP.PCM.DIS ---
Provider - Provider Date of Admission: 02/03/18 21:07 Attending physician: Ortiz Jackson Primary care physician: NO FAMILY PROVIDER Consults: IR for Paracentesis Nephrology : Dr Gutiérrez Time Spent in preparation of Discharge (in minutes): 40 Diagnosis - Discharge Diagnosis (1) Abdominal pain Status: Acute Priority: High (2) Cirrhosis of liver with ascites Status: Chronic (3) ESRD (end stage renal disease) on dialysis Status: Chronic (4) Hypotension Status: Chronic (5) Atrial fibrillation Status: Chronic Hospital Course - Lab Results Lab Results: Most Recent Lab Values WBC 9.2 K/uL (4.8-10.8) 02/05/18 10:15 RBC 3.09 Mil/uL (3.80-5.20) L 02/05/18 10:15 Hgb 10.0 g/dL (12.0-16.0) L 02/05/18 10:15 Hct 32.1 % (34.0-47.0) L 02/05/18 10:15 MCV 104.0 fl (81.0-99.0) H 02/05/18 10:15 MCH 32.5 pg (27.0-31.0) H 02/05/18 10:15 MCHC 31.2 g/dL (33.0-37.0) L 02/05/18 10:15 RDW 23.4 % (11.5-14.5) H 02/05/18 10:15 Plt Count 126 K/uL (130-400) L D 02/05/18 10:15 MPV 10.6 fl (7.2-11.7) 02/03/18 19:49 Neut % (Auto) 78.5 % (50.0-75.0) H 02/03/18 19:49 Lymph % (Auto) 8.5 % (20.0-40.0) L 02/03/18 19:49 [facility] % (Auto) 12.1 % (0.0-10.0) H 02/03/18 19:49 Eos % (Auto) 0.3 % (0.0-4.0) 02/03/18 19:49 Baso % (Auto) 0.6 % (0.0-2.0) 02/03/18 19:49 Neut # (Auto) 6.4 K/uL (1.8-7.0) 02/03/18 19:49 Lymph # (Auto) 0.7 K/uL (1.0-4.3) L 02/03/18 19:49 [facility] # (Auto) 1.0 K/uL (0.0-0.8) H 02/03/18 19:49 Eos # (Auto) 0.0 K/uL (0.0-0.7) 02/03/18 19:49 Baso # (Auto) 0.0 K/uL (0.0-0.2) 02/03/18 19:49 Neutrophils % (Manual) 87 % (42-75) H 02/03/18 19:49 Lymphocytes % (Manual) 7 % (20-50) L 02/03/18 19:49 Reactive Lymphs % 1 % (0-0) H 02/03/18 19:49 Monocytes % (Manual) 5 % (0-10) 02/03/18 19:49 Nucleated RBC % 2 % (0-0) H 02/03/18 19:49 Platelet Estimate Decreased (NORMAL) L 02/03/18 19:49 Hypochromasia (manual) Slight 02/03/18 19:49 Anisocytosis (manual) Slight 02/03/18 19:49 Macrocytosis (manual) Slight 02/03/18 19:49 PT 18.4 Seconds (9.8-13.1) H 02/05/18 10:15 INR 1.6 (0.9-1.2) H 02/05/18 10:15 APTT 46.6 Seconds (25.6-37.1) H 02/03/18 23:07 Sodium 140 mmol/l (132-148) 02/03/18 19:49 Potassium 4.4 MMOL/L (3.6-5.0) 02/03/18 19:49 Chloride 100 mmol/L (98-107) 02/03/18 19:49 Carbon Dioxide 23 mmol/L (22-30) 02/03/18 19:49 Anion Gap 21 (10-20) H 02/03/18 19:49 BUN 55 mg/dl (7-17) H 02/03/18 19:49 Creatinine 3.4 mg/dl (0.7-1.2) H 02/03/18 19:49 Est GFR ( Amer) 16 02/03/18 19:49 Est GFR (Non-Af Amer) 13 02/03/18 19:49 Random Glucose 82 mg/dL (65-105) 02/03/18 19:49 Calcium 7.8 mg/dL (8.4-10.2) L 02/03/18 19:49 Total Bilirubin 4.2 mg/dl (0.2-1.3) H 02/03/18 19:49 AST 61 U/L (14-36) H D 02/03/18 19:49 ALT 34 U/L (9-52) 02/03/18 19:49 Alkaline Phosphatase 202 U/L (38-126) H D 02/03/18 19:49 Ammonia 39 umo/L (11-51) D 02/03/18 19:49 Total Protein 5.7 G/DL (6.3-8.2) L 02/03/18 19:49 Albumin 2.5 g/dL (3.5-5.0) L D 02/03/18 19:49 Globulin 3.2 gm/dL (2.2-3.9) 02/03/18 19:49 Albumin/Globulin Ratio 0.8 (1.0-2.1) L 02/03/18 19:49 Blood Type A POSITIVE 02/03/18 23:15 Antibody Screen Negative 02/03/18 23:15 BBK History Checked Patient has bt 02/03/18 23:15 - Hospital Course Hospital Course: 77 years old female with hx of Chronic A Fib, ESRD on Hemodialysis MWF, and liver cirrhosis with Ascites and bimonthly paracentesis and on 2 L of Oxygen / min at home was brought to the ED because of 2 days of increasing lower abdominal pain, more at the right lower quadrant. This is associated with poor appetite, SOB, low blood pressures and frequent bowel movements. She is well known to our service and has very poor prognosis Discussed with daughter at length. She has decided to follow her mothers wishes about DNR/ DNI. Had long discussion about comfort / hospice care and she is agreeable to home hospice . Patient had Large volume Paracentesis prior to discharge for comfort. 1.Abdominal Pain most likely secondary to the abdominal distension from the Ascites. Patient requested for Paracentesis for Comfort pain management - Placed on Morphine IV , Fentanyl patch. Will d/c home on PO Morphine patient has poor prognosis due to her chronic renal and liver failure Pt and family wants Home hospice/comfort care 2. Cryptogenic Liver cirrhosis with Ascites, coagulopathy , thrombocytopenia IR For US guided Paracentesis Pain management Poor prognosis 3. ESRD on HD MWF Consult Dr Gutiérrez for dialysis however family refuses any further HD 4. Anemia of Chronic disease stable 5. Chronic hypotension on Midodrine 10 mg po TID 6. Chronic Afib rate controlled on Metoprolol Digoxin discontinued last admission due to toxicity Eliquis stopped due to coagulopathy with GI bleed and high risk for bleeding 7. Stage II sacral Ulcer ( POA) Wound care nurse Consult 8. Stress Ulcer prophylaxis with Pantoprazole 9.Guarded Prognosis Hospice eval Discharge Exam - Head Exam Head Exam: NORMAL INSPECTION, NORMOCEPHALIC - Eye Exam Eye Exam: EOMI, Normal appearance - ENT Exam ENT Exam: Mucous Membranes Dry, Normal External Ear Exam - Neck Exam Neck exam: Full Rom - Respiratory Exam Respiratory Exam: NORMAL BREATHING PATTERN. absent: Respiratory Distress - Cardiovascular Exam Cardiovascular Exam: Irregular Rhythm, +S1, +S2 - GI/Abdominal Exam GI & Abdominal Exam: Distended, Firm, Normal Bowel Sounds, Tenderness - Extremities Exam Extremities exam: pedal pulses present - Neurological Exam Additional comments: lethargic minimal verbal output - Psychiatric Exam Psychiatric exam: Flat Affect - Skin Skin Exam: Dry, Pallor, Warm Discharge Plan - Discharge Medications Prescriptions: fentaNYL 12 mcg/hr [Duragesic Patch 12 mcg/hr] 1 patch TD Q3D #1 patch Morphine Sulfate 10 mg PO Q4 PRN #6 syringe PRN Reason: Pain, Moderate (4-7) Ondansetron ODT [Zofran ODT] 4 mg PO Q8H PRN #30 odt PRN Reason: Nausea/Vomiting - Follow Up Plan Condition: GUARDED Disposition: HOSPICE - HOME Additional Instructions: d/c pt home to Home Hospice Referrals: FAMILY PROVIDER,NO [Primary Care Provider] -
--- NOTE | 2018-02-05 14:07 | PCM.SURG1 ---
Surgeon's Initial Post Op Note - Surgeon's Notes Surgeon: Bandar Garcias MD Clinical Administrative Coordinator: None Type of Anesthesia: Local Pre-Operative Diagnosis: ascites Operative Findings: large volume ascites Post-Operative Diagnosis: same Operation Performed: US guided paracentesis Specimen/Specimens Removed: 6.9 liters straw colored fluid removed Estimated Blood Loss: EBL {In ML}: 0 Date of Surgery/Procedure: 02/05/18 Time of Surgery/Procedure: 14:07
--- NOTE | 2018-02-05 15:20 | US ---
PROCEDURE: ULTRASOUND-GUIDED PARACENTESIS CLINICAL HISTORY: 77-year-old female with cirrhosis and recurrent symptomatic ascites is referred to Interventional Radiology for ultrasound-guided paracentesis. COMPARISON: CT scan of the abdomen and pelvis dated 01/23/2018. PROCEDURE: 1. Ultrasound-guided paracentesis. PRE-PROCEDURE FINDINGS: 1. Large volume ascites. POST-PROCEDURE FINDINGS: 1. No evidence of post-procedural complication. INTERVENTIONAL RADIOLOGIST: Bnadar Garcias M.D. (the attending was present for the entire procedure) ANESTHESIA: None. MEDICATION: Lidocaine 1% for local subcutaneous analgesia. COMPLICATIONS: None. PROCEDURE DESCRIPTION AND FINDINGS: The risks, benefits, alternatives and possible complications of the procedure were fully discussed; all questions were answered and informed consent was obtained. The patient was brought into the interventional suite and a pre-procedure 'time-out' was performed. The patient was placed on the fluoroscopy table in the supine position. Preliminary ultrasound images of the right lower quadrant demonstrate a large amount of ascites. The right lower quadrant was prepped and draped in the usual sterile fashion. Maximum sterile barrier precautions were maintained throughout the entire procedure. Following subcutaneous infiltration of lidocaine 1% for local analgesia, under real-time ultrasound guidance, a 5 Tamazight centesis catheter was advanced into the right lower quadrant with real-time visualization of needle entry. The ultrasound images were permanently recorded and submitted to the PACS. The inner stylet was removed and the catheter was attached to gentle vacuum suction. A total of 6.9 liters of straw-colored fluid were aspirated. The drainage catheter was then removed. A sterile adhesive bandage was placed over the puncture site. The patient tolerated the procedure well without immediate post-procedure complications and was transferred back to the floor in stable condition. IMPRESSION: SUCCESSFUL ULTRASOUND-GUIDED THERAPEUTIC PARACENTESIS.
[2018-02-05 15:40] VITALS: BP 61/31; PULSE 72; RESP 16; TEMP 94.5; O2SAT 88
== END 2018-02-05 17:30 | disposition hospice, home (50) ==
LOC: H.ER 18:37 → H.ERHOLD 21:07 → H.TEL 23:45
PROVIDERS: ADMIT Internal Medicine; ATTEND Internal Medicine
DX: K74.69 Other cirrhosis of liver (principal); R18.8 Other ascites; K72.90 Hepatic failure, unspecified without coma; N18.6 End stage renal disease; D68.4 Acquired coagulation factor deficiency; D63.8 Anemia in other chronic diseases classified elsewhere; D69.6 Thrombocytopenia, unspecified; I12.0 Hypertensive chronic kidney disease with stage 5 chronic kidney disease or end stage renal disease; I48.2 Chronic atrial fibrillation; I95.89 Other hypotension; G89.29 Other chronic pain; F41.9 Anxiety disorder, unspecified; Z66 Do not resuscitate; Z99.2 Dependence on renal dialysis; Z51.5 Encounter for palliative care; H40.9 Unspecified glaucoma; Z87.01 Personal history of pneumonia (recurrent); Z95.0 Presence of cardiac pacemaker; Z88.6 Allergy status to analgesic agent; Z88.0 Allergy status to penicillin
CPT/HCPCS: 49083; 71045; 80053; 82140; 85025; 85027; 85610; 85730; 86850; 86900; 87230; 93005; 96374; 99285; C1729; G0378; J1885; J2270; J2405; J3430; J7040